=== PATIENT | male | born 1955 | race Caucasian/White ===

== ENCOUNTER → 2017-11-29 08:01 | Outpatient (POV) | payer OTHER, SELFPAY | PROVIDERS: Family Provider Family Medicine; PCP Family Medicine; Visit Provider Nurse Practitioner Acute Care | DX: Z00.00 Encounter for general adult medical examination without abnormal findings (principal) ==

== ENCOUNTER → 2018-07-04 09:37 | Outpatient (POV) | payer OTHER, SELFPAY | PROVIDERS: Visit Provider Nurse Practitioner Acute Care | DX: Z00.00 Encounter for general adult medical examination without abnormal findings (principal) ==

== ENCOUNTER → 2018-08-18 14:03 | Outpatient (CLI) | payer OTHER, SELFPAY | PROVIDERS: PCP Family Medicine; Visit Provider Family Medicine | DX: G47.10 Hypersomnia, unspecified (principal); R06.83 Snoring; I10 Essential (primary) hypertension | CPT/HCPCS: 95806 ==

== ENCOUNTER → 2019-03-09 10:07 | Outpatient (CLI) | payer MEDICARE, OTHER, SELFPAY ==
[2019-03-09 12:40] LABS: Ferritin 97 ng/mL (8-388)
== END ==
PROVIDERS: Visit Provider Specialist
DX: E83.10 Disorder of iron metabolism, unspecified (principal); G25.81 Restless legs syndrome; G47.33 Obstructive sleep apnea (adult) (pediatric)
CPT/HCPCS: 36415; 82728

== ENCOUNTER → 2019-03-27 14:24 | Outpatient (CLI) | payer MEDICARE, OTHER, SELFPAY | PROVIDERS: Visit Provider Specialist | DX: G47.33 Obstructive sleep apnea (adult) (pediatric) (principal) | CPT/HCPCS: 94762 ==

== ENCOUNTER → 2019-04-18 10:00 | Outpatient (POV) | payer OTHER, SELFPAY | PROVIDERS: Visit Provider Otolaryngology | DX: Z00.00 Encounter for general adult medical examination without abnormal findings (principal) ==

== ENCOUNTER → 2019-06-06 10:33 | Outpatient (POV) | payer OTHER, SELFPAY | PROVIDERS: Visit Provider Otolaryngology | DX: Z00.00 Encounter for general adult medical examination without abnormal findings (principal) ==

== ENCOUNTER → 2019-08-18 09:17 | Outpatient (CLI) | payer MEDICARE, OTHER, SELFPAY ==
--- NOTE | 2019-08-18 09:25 | XR_ITS ---
PROCEDURE: XR HIP LT 2-3V W/PELVIS CLINICAL INDICATION: LT HIP PAIN The left hip pain COMPARISON: [id number] HIP RT 2-3V W/PELVIS IF PERFOR from 11/01/2015 FINDINGS: AP view of the pelvis shows mild bilateral osteoarthritic changes of the hips. No fracture or dislocation. No lytic or blastic change. Multiple small metallic densities are present over the symphysis pubis consistent with prostate seed implants. There are degenerative changes in the lower lumbar spine. IMPRESSION: Mild osteoarthritic changes, no acute finding Dictated by: Arturo Sousa MD 08/18/2019 15:25 Electronically signed by Arturo Sousa MD in [place] 08/18/2019 15:25
== END ==
PROVIDERS: PCP Family Medicine; Visit Provider Family Medicine
DX: M25.552 Pain in left hip (principal)
CPT/HCPCS: 73502

== ENCOUNTER → 2019-08-31 13:58 | Outpatient (CLI) | payer MEDICARE, OTHER, SELFPAY ==
--- NOTE | 2019-08-31 14:00 | MR_ITS ---
PROCEDURE: MR HIP LT WO CON CLINICAL INDICATION: LEFT HIP PAIN, ARTHRITIS OF LEFT HIP LEFT HIP PAIN ESPECIALLY WITH WALKING COMPARISON: XR HIP LT 2-3V W/PELVIS from 08/18/2019 TECHNIQUE: Routine multiplanar multi echo sequences are performed without gadolinium enhancement. FINDINGS: There are mild osteoarthritic changes of both hips. No fracture or dislocation is evident. No bony destructive process. No lytic or blastic change. No evidence of avascular necrosis. There is a 2 cm loculated fluid collection along the posterior aspect of the left hip joint and may be due to an area of bursitis. There is a small amount fluid within the intertrochanteric region of both hips.. No abnormal signal intensity within the adjacent musculature. There is mild thickening of the urinary bladder noted. IMPRESSION: 1. No acute bony pathology. No evidence of fracture or avascular necrosis. No bony destructive process evident 2. Mild bilateral osteoarthritic changes of the hips with small bilateral hip joint effusions and a small loculated fluid collection along the posterior aspect of the left femoral acetabular region suggesting an area of bursitis. Dictated by: Arturo Sousa MD 09/02/2019 06:54 Electronically signed by Arturo Sousa MD in [place] 09/02/2019 06:54
== END ==
PROVIDERS: PCP Family Medicine; Visit Provider Family Medicine
DX: M25.552 Pain in left hip (principal); M16.12 Unilateral primary osteoarthritis, left hip
CPT/HCPCS: 73721

== ENCOUNTER 2019-11-23 07:40 | Outpatient (RCR) | payer MEDICARE, OTHER, SELFPAY | END 2019-11-23 07:45 | disposition home or self-care (01) | LOC: PT 07:40 | PROVIDERS: PCP Family Medicine; Visit Provider Orthopaedic Surgery | DX: M70.62 Trochanteric bursitis, left hip (principal) | CPT/HCPCS: 20560; 97010; 97014; 97110; 97163; G0283 ==

== ENCOUNTER → 2019-12-11 14:24 | Outpatient (CLI) | payer MEDICARE, OTHER, SELFPAY ==
--- NOTE | 2019-12-11 14:27 | MR_ITS ---
PROCEDURE: MR LUMBAR SPINE WO CON CLINICAL INDICATION: LEFT SIDED SCIATICA, LUMBAR FACET ARTHROPATHY, LUMBAR DDD Left hip and leg pain the COMPARISON: ABDPELW CT ABD PELVIS W/ CONTRAST from 10/04/2015 LS5 LUMBAR SPINE 5 VIEWS from 04/15/2017 TECHNIQUE: Standard multiplanar multiecho sequences are performed without contrast. 3-D MIP and myelographic images are also rendered and reviewed FINDINGS: The spinal cord ends at the T12 level. There is minimal anterolisthesis of T10 on T11 of 3 mm. T11-T12 T12-L1 and L1-L2 have an unremarkable appearance. L2-L3: Mild degenerative disc disease with bulging disc along with facet ligamentum hypertrophy with resultant mild bilateral lateral recess narrowing. There is moderate right-sided foraminal narrowing and mild left foraminal narrowing. There is minimal retrolisthesis of L2 2 mm. Small amount fluid is present in the facet joint at this level. L3-L4: Degenerate disc disease with bulging disc with facet and ligamentum hypertrophy with moderate to severe right-sided foraminal narrowing and mild left foraminal narrowing. L4-5: 7 mm anterolisthesis of L4 with mild degenerative disc disease at that level with facet and ligamentum hypertrophy with moderate bilateral foraminal narrowing slightly greater on the right. L5-S1: Mild degenerative disc disease with mild bulging disc along with facet ligamentum hypertrophic change. There is some nonspecific fatty infiltration of the left psoas muscle laterally. There is a small right renal cyst at 16 mm. IMPRESSION: The abnormal MRI of the lumbar spine with multilevel lumbar spondylosis with degenerative disc disease, bulging disc, along with facet ligamentum arthropathy with hypertrophic change with lateral recess and foraminal narrowing. PLEASE SEE ABOVE FOR DETAILED DESCRIPTION AT EACH LEVEL. No extruded herniated disc or canal stenosis. Dictated by: Arturo Sousa MD 12/13/2019 06:46 Electronically signed by Arturo Sousa MD in [place] 12/13/2019 06:46
== END ==
PROVIDERS: PCP Family Medicine; Visit Provider Family Medicine
DX: M54.32 Sciatica, left side (principal); M47.816 Spondylosis without myelopathy or radiculopathy, lumbar region; M51.36 Other intervertebral disc degeneration, lumbar region
CPT/HCPCS: 72148; 76376

== ENCOUNTER → 2020-05-13 09:24 | Outpatient (CLI) | payer MEDICARE, OTHER, SELFPAY ==
[2020-05-13 11:08] LABS: Coronavirus 19 IgG Antibody Negative (Negative); Coronavirus 19 IgM Antibody Negative (Negative)
== END ==
PROVIDERS: Visit Provider Nurse Practitioner Family
DX: Z01.818 Encounter for other preprocedural examination (principal); G47.33 Obstructive sleep apnea (adult) (pediatric)
CPT/HCPCS: 36415; 86328

== ENCOUNTER → 2020-05-14 20:06 | Outpatient (CLI) | payer MEDICARE, OTHER, SELFPAY | PROVIDERS: PCP Family Medicine; Visit Provider Specialist | DX: G47.33 Obstructive sleep apnea (adult) (pediatric) (principal); E66.9 Obesity, unspecified | CPT/HCPCS: 95811 ==

== ENCOUNTER → 2020-05-28 11:18 | Outpatient (CLI) | payer MEDICARE, OTHER, SELFPAY ==
--- NOTE | 2020-05-28 11:30 | XR_ITS ---
PROCEDURE: XR CHEST AP CLINICAL HISTORY: COVID COMPARISON: No exams were available for comparison FINDINGS: The cardiomediastinal silhouette and pulmonary vascularity are within normal limits. The lungs are clear without infiltrates, suspicious nodules, or pleural effusions. Calcified granulomas present in the right midlung. There is mild tortuosity/ectasia of the descending thoracic aorta. No acute bony findings. IMPRESSION: No acute findings. Dictated b Arturo Sousa MD 05/28/2020 12:25 Arturo Sousa MD in [place] 05/28/2020 12:25
[2020-05-28 14:31] LABS: Basophils % 0.5 % (0.1-2.0); Eosinophils # 0.2 K/mm3 (0.0-0.4); Eosinophils % 2.4 % (0.1-12.0); Hematocrit 45.8 % (42.0-52.0); Hemoglobin 15.5 g/dL (14.1-18.0); Lymphocytes # 1.9 K/mm3 (0.7-4.5); Lymphocytes % 27.6 % (10-50); Mean Corpuscular HGB Conc 33.8 g/dL (31.8-35.4); Mean Corpuscular Hemoglobin 30.1 pg (27.0-31.2); Mean Corpuscular Volume 89.1 fl (80-94); Mean Platelet Volume 8.6 fl (7.4-10.4); Monocytes # 0.4 K/mm3 (0.1-1.0); Monocytes % 6.1 % (1.7-9.3); Neutrophils # 4.3 K/mm3 (1.8-7.8); Neutrophils % 63.4 % (37.0-80.0); Platelet Count 317 K/mm3 (142-424); Red Blood Count 5.13 M/mm3 (4.60-6.20); Red Cell Distribution Width 13.9 % (11.5-17.5); White Blood Count 6.7 K/mm3 (4.8-10.8)
== END ==
PROVIDERS: PCP Family Medicine; Visit Provider Family Medicine
DX: Z03.818 Encounter for observation for suspected exposure to other biological agents ruled out (principal)
CPT/HCPCS: 36415; 71045; 85025; U0003

== ENCOUNTER → 2020-07-16 09:57 | Outpatient (CLI) | payer MEDICARE, OTHER, SELFPAY | PROVIDERS: PCP Family Medicine; Visit Provider Specialist | DX: G47.33 Obstructive sleep apnea (adult) (pediatric) (principal) | CPT/HCPCS: 94762 ==

== ENCOUNTER → 2021-03-10 08:53 | Outpatient (CLI) | payer MEDICARE, OTHER, SELFPAY ==
--- NOTE | 2021-03-10 09:03 | XR_ITS ---
PROCEDURE: XR CHEST 2V CLINICAL HISTORY: COUGH COMPARISON: CR XR CHEST AP from 05/28/2020 FINDINGS: Normal heart size. There is some tortuosity/ectasia of the descending thoracic aorta. Calcified granulomas present in the right midlung. The remaining Lungs are clear. Mild degenerative changes thoracic spine IMPRESSION: No change with no acute finding Dictated by: Arturo Sousa MD 03/10/2021 09:26 Arturo Sousa MD in [place] 03/10/2021 09:27
== END ==
PROVIDERS: PCP Family Medicine; Visit Provider Family Medicine
DX: R05 Cough (principal)
CPT/HCPCS: 71046

== ENCOUNTER → 2021-05-09 09:28 | Outpatient (CLI) | payer MEDICARE, OTHER, SELFPAY ==
[2021-05-09 11:02] LABS: Prostate Specific Ag Screen < 0.1 ng/ml (0.0-4.0)
== END ==
PROVIDERS: Visit Provider Family Medicine
DX: Z12.5 Encounter for screening for malignant neoplasm of prostate (principal)
CPT/HCPCS: 36415; G0103

== ENCOUNTER → 2021-06-30 15:39 | Outpatient (CLI) | payer MEDICARE, OTHER, SELFPAY ==
--- NOTE | 2021-06-30 15:45 | XR_ITS ---
PROCEDURE: XR CHEST PORTABLE CLINICAL HISTORY: COVID OUTPATIENT COMPARISON: CR XR CHEST AP from 05/28/2020 CR XR CHEST 2V from 03/10/2021 FINDINGS: Patient is rotated toward the right. There is tortuosity of the descending thoracic aorta. The lungs are clear without infiltrates, suspicious nodules, or pleural effusions. No acute bony abnormalities. IMPRESSION: No acute findings. Dictated by: Arturo Sousa MD 06/30/2021 16:41 Arturo Sousa MD in [place] 06/30/2021 16:41
[2021-06-30 17:45] LABS: Basophils # 0.1 K/mm3 (0-0.2); Basophils % 0.9 % (0.1-2.0); Eosinophils # 0.2 K/mm3 (0.0-0.4); Hematocrit 48.9 % (42.0-52.0); Hemoglobin 15.6 g/dL (14.1-18.0); Lymphocytes # 2.6 K/mm3 (0.7-4.5); Lymphocytes % 29.8 % (10-50); Mean Corpuscular HGB Conc 31.9 g/dL (31.8-35.4); Mean Corpuscular Hemoglobin 29.3 pg (27.0-31.2); Mean Corpuscular Volume 91.8 fl (80-94); Mean Platelet Volume 7.6 fl (7.4-10.4); Monocytes # 0.5 K/mm3 (0.1-1.0); Monocytes % 6.1 % (1.7-9.3); Neutrophils # 5.3 K/mm3 (1.8-7.8); Neutrophils % 61.1 % (37.0-80.0); Platelet Count 572 K/mm3 (142-424); Red Blood Count 5.33 M/mm3 (4.60-6.20); Red Cell Distribution Width 13.3 % (11.5-17.5); White Blood Count 8.7 K/mm3 (4.8-10.8)
== END ==
PROVIDERS: PCP Family Medicine; Visit Provider Family Medicine
DX: Z20.822 Contact with and (suspected) exposure to COVID-19 (principal); U07.1 COVID-19
CPT/HCPCS: 71045; 85025; 87275; 87276; C9803; U0003; U0005

== ENCOUNTER → 2021-09-03 08:17 | Outpatient (CLI) | payer MEDICARE, OTHER, SELFPAY ==
--- NOTE | 2021-09-03 08:25 | XR_ITS ---
PROCEDURE: XR CHEST 2V CLINICAL HISTORY: hypoxemia COMPARISON: CR XR CHEST AP from 05/28/2020 CR XR CHEST 2V from 03/10/2021 CR XR CHEST PORTABLE from 06/30/2021 FINDINGS: The cardiomediastinal silhouette and pulmonary vascularity are within normal limits. Tortuosity/ectasia noted of the descending thoracic aorta. Granulomas present in the right midlung. Lungs are otherwise clear. No acute bony abnormalities. IMPRESSION: No change with no acute finding Dictated by: Arturo Sosua MD 09/03/2021 08:37 Arturo Sousa MD in [place] 09/03/2021 08:37
[2021-09-03 09:50] VITALS: PULSE 63; PULSE 68
== END ==
PROVIDERS: PCP Family Medicine; Visit Provider Nurse Practitioner Family
DX: G47.34 Idiopathic sleep related nonobstructive alveolar hypoventilation (principal); Z86.16 Personal history of COVID-19; R09.02 Hypoxemia
CPT/HCPCS: 71046; 94060; 94618; 94640; 94727; 94729

== ENCOUNTER → 2021-09-08 09:05 | Outpatient (CLI) | payer MEDICARE, OTHER, SELFPAY ==
[2021-09-08 10:00] LABS: Creatinine,Urine Random 128 mg/dL (Not Estab.)
[2021-09-08 10:06] LABS: Microalbumin < 6.000 mg/L (0-16.7)
[2021-09-08 10:11] LABS: Basophils # 0.1 K/mm3 (0-0.2); Basophils % 1.1 % (0.1-2.0); Eosinophils # 0.1 K/mm3 (0.0-0.4); Hematocrit 46.3 % (42.0-52.0); Lymphocytes # 1.8 K/mm3 (0.7-4.5); Lymphocytes % 29.9 % (10-50); Mean Corpuscular HGB Conc 32.4 g/dL (31.8-35.4); Mean Corpuscular Hemoglobin 29.3 pg (27.0-31.2); Mean Corpuscular Volume 90.4 fl (80-94); Mean Platelet Volume 9.2 fl (7.4-10.4); Monocytes # 0.4 K/mm3 (0.1-1.0); Neutrophils # 3.7 K/mm3 (1.8-7.8); Platelet Count 440 K/mm3 (142-424); Red Blood Count 5.13 M/mm3 (4.60-6.20); Red Cell Distribution Width 14.3 % (11.5-17.5)
[2021-09-08 10:45] LABS: Alanine Aminotransferase 33 U/L (12-78); Albumin Level 4.6 g/dl (3.5-5.0); Albumin/Globulin Ratio 1.9 (1.1-1.8); Alkaline Phosphatase 64 U/L (38-126); Anion Gap 13.4 mEq/L (5-15); Aspartate Amino Transferase 40 U/L (17-59); Bilirubin,Total 0.3 mg/dl (0.2-1.3); Blood Urea Nitrogen 16 mg/dl (9-20); Calcium 9.8 mg/dl (8.4-10.2); Carbon Dioxide 27 mmol/L (22.0-30.0); Chloride 103 mmol/L (98-107); Chol/HDL Ratio 4.4 (1-3.5); Cholesterol 168 mg/dl (140-200); Estimated Glomerular Filt Rate 96 ml/min (>60); GFR (African American) 117 ML/MIN (>60); Globulin 2.4 g/dL (1.3-3.2); Glucose 103 mg/dl (74-100); HDL Cholesterol 38 mg/dl (40-60); Potassium 4.4 mmoL/L (3.5-5.1); Sodium 139 mmol/L (136-145); Triglycerides 203 mg/dl (30-150); Uric Acid 4.4 mg/dl (3.5-8.5); VLDL Cholesterol 41 mg/dL (0-40)
[2021-09-08 10:46] LABS: Hemoglobin A1C 5.5 % (4.0-6.0)
[2021-09-08 11:02] LABS: Free T4 (Free Thyroxine) 0.79 ng/dl (0.78-2.19)
[2021-09-08 13:39] LABS: Thyroid Stimulating Hormone 2.83 uIU/mL (0.465-4.68)
== END ==
PROVIDERS: Visit Provider Family Medicine
DX: E11.9 Type 2 diabetes mellitus without complications (principal); E78.5 Hyperlipidemia, unspecified; E03.9 Hypothyroidism, unspecified; I10 Essential (primary) hypertension; M1A.9XX0 Chronic gout, unspecified, without tophus (tophi); Z79.84 Long term (current) use of oral hypoglycemic drugs
CPT/HCPCS: 36415; 80053; 80061; 82043; 82570; 83036; 84439; 84443; 84550; 85025

== ENCOUNTER 2022-02-18 05:56 | Inpatient (IN) | payer MEDICARE, SELFPAY ==
[2022-02-18] VITALS (16 sets, daily range): BP systolic 107–147; BP diastolic 70–93; PULSE 60–125; RESP 16–28; TEMP 36.7–38.8; O2SAT 95–100; BMI 35.6; BMI 32.3
--- NOTE | 2022-02-18 06:05 | ECG_ITS ---
APPROVED REPORT Exam: Resting ECG HR:84 bpm ECG Measurements Heart Rate 84 AXES FL 160 P 48 QRSd 113 QRS 51 QT 401 T 67 QTc 443 Conclusion SINUS RHYTHM WITH OCCASIONAL VENTRICULAR PREMATURE COMPLEXES POSSIBLE LEFT ATRIAL ENLARGEMENT [-0.1mV P-WAVE IN V1/V2] MODERATE INTRAVENTRICULAR CONDUCTION DELAY [110+ ms QRS DURATION] NONSPECIFIC ST & T-WAVE ABNORMALITY BORDERLINE ECG INTERPRETATION BASED ON A DEFAULT AGE OF 38 YEARS UNCONFIRMED REPORT Electronically signed by : Robert Jones MD 02/18/2022 17:55:57
--- NOTE | 2022-02-18 06:08 | XR_ITS ---
FINAL REPORT CLINICAL HISTORY: ams FINDINGS: SINGLE-VIEW CHEST There is cardiomegaly. The mediastinum is normal. The lungs are clear. There is no pneumothorax. IMPRESSION: No acute cardiopulmonary process. Reviewed, Interpreted and Dictated by Oli Motley III, MD Transcribed by Mary Bustillo Authenticated by Oli Motley III, MD on 02/18/2022 10:34:14 AM [facility]
--- NOTE | 2022-02-18 06:08 | CT_ITS ---
FINAL REPORT CLINICAL HISTORY: ams..pt is very very confused and moving uncontrollably...had to scan him 2 times and we heard his head on the 2nd scan FINDINGS: Axial images of the head were obtained without contrast. Coronal reformatted images were also obtained.This study was performed with techniques to keep radiation doses as low as reasonably achievable (ALARA). Individualized dose reduction techniques using automated exposure control or adjustment of mA and/or kV according to the patient's size were employed. Motion artifact decreases sensitivity. No definite acute intracranial abnormality is identified. The ventricles are normal in size. No definite hemorrhage is identified. There is mild mucosal thickening of the maxillary sinuses. IMPRESSION: No definite acute intracranial abnormality. Reviewed, Interpreted and Dictated by Oli Motley III, MD Transcribed by Mary Bustillo Authenticated by Oli Motley III, MD on 02/18/2022 08:36:04 AM [facility]
--- NOTE | 2022-02-18 06:16 | PC.NURSE ---
respiratory notified of vbg
[2022-02-18 06:36] LABS: Basophils # 0.1 K/mm3 (0-0.2); Basophils % 0.6 % (0.1-2.0); Hemoglobin 16.3 g/dL (14.1-18.0); Lymphocytes # 1.3 K/mm3 (0.7-4.5); Lymphocytes % 10.4 % (10-50); Mean Corpuscular HGB Conc 34.7 g/dL (31.8-35.4); Mean Corpuscular Hemoglobin 30.6 pg (27.0-31.2); Mean Corpuscular Volume 88.1 fl (80-94); Mean Platelet Volume 8.4 fl (7.4-10.4); Monocytes # 0.7 K/mm3 (0.1-1.0); Monocytes % 5.3 % (1.7-9.3); Neutrophils # 10.4 K/mm3 (1.8-7.8); Neutrophils % 83.6 % (37.0-80.0); Platelet Count 422 K/mm3 (142-424); Red Blood Count 5.33 M/mm3 (4.60-6.20); Red Cell Distribution Width 14.3 % (11.5-17.5); White Blood Count 12.4 K/mm3 (4.8-10.8)
[2022-02-18 06:40] LABS: Alanine Aminotransferase 35 U/L (12-78); Albumin/Globulin Ratio 1.7 (1.1-1.8); Alkaline Phosphatase 57 U/L (38-126); Anion Gap 18.1 mEq/L (5-15); Aspartate Amino Transferase 48 U/L (17-59); Bilirubin,Total 1.1 mg/dl (0.2-1.3); Blood Urea Nitrogen 23 mg/dl (9-20); Calcium 9.7 mg/dl (8.4-10.2); Carbon Dioxide 23 mmol/L (22.0-30.0); Chloride 98 mmol/L (98-107); Estimated Glomerular Filt Rate 84 ml/min (>60); GFR (African American) 102 ML/MIN (>60); Globulin 2.9 g/dL (1.3-3.2); Glucose 173 mg/dl (74-100); Lipase 85 U/L (23-300); Potassium 3.1 mmoL/L (3.5-5.1); Sodium 136 mmol/L (136-145); Total Protein,Serum 7.9 g/dl (6.3-8.2)
[2022-02-18 06:42] LABS: Activated Partial Thrombo Time 25.7 seconds (22.8-30.6); INR 1.04 (0.9-1.1); Prothrombin Time 11.7 seconds (10.1-12.5)
--- NOTE | 2022-02-18 07:00 | PC.NURSE ---
bedside report obtained from colton austin pt is 4 point restraints upon my arrival, ED staff at BS. Pt thrashing in bed, trying to get up. ED staff trying to calm pt. ER MD bedside, ER MD wanting to attempt to get pt over to Ct scanner for head Ct. Medication ordered per ER MD for agitation, administered as ordered per DEC. Staff remains at BS
[2022-02-18 07:23] LABS: VBG Base Excess -0.7 mmol/L (-2.4-2.3); VBG HCO3 22.3 mmol/L (23-30); VBG Oxygen Saturation 86.5 % (50-70); VBG PCO2 28.2 mmol/L (35-51); VBG PH 7.52 mmol/L (7.31-7.41); VBG PO2 45.6 mmol/L (28-40); VBG Total CO2 23.1 mmol/L (23-27)
--- NOTE | 2022-02-18 07:35 | PC.NURSE ---
at approx [address] via stretcher with myself and ,sorin, pt on serging machine operator automatic, O2 @2L per NC, capnography in place pt restraints removed so that pt could be transferred to Ct table. Velcro straps to abd area and knee area on pt during Ct scan for safety. ED staff member remained in CT scan room with pt during scan for safety. Pt tolerated scan well, pt attempting to follow commands, will look at you when you talk to him. Pt transferred back to ED stretcher, restraints not placed on back on pt at this time r/t pt not combative or tying to get up from bed. Pt transferred back to ED room per myself and ,pm
--- NOTE | 2022-02-18 07:41 | PC.NURSE ---
@0558 pt presents to ED walking and alert but confused and not following commands. Son was able to football coach pt to sitting in bed and pt tolerating BP cuff placed and o2 sat. attempting to get EKG 0610 Pt becoming more agitated and swinging arms. MD aware and at bedside. 0618 PIV established to LAC (18g) blood collected. Pt starting to trash in bed. House called for extra support and assistance. MD remains a t bedside. HR 170s, RR36, sat 96% BP 147/82. Can not obtain temp at this time d/t safety. 0625 Pt becoming very combative and hitting staff and has skin tear from hitting side rails. Gauze and coban applied to open wounds. 5x staff members are attempting to keep pt in bed and safe. Zyprexa 10mg IM ordered, given L deltoid. 0630 MD order soft restraints. This RN collected restraints and these were starting to be placed on pt. Paged for [facility] WH[facility] . 0634 Extra staff at bedside and restraints secured to bed. ordered a second dose of Zyprexa 10mg IM ordered, given to R deltoid. HR 170s 0645 7x staff at bedside keeping pt safe, lost IV access to LAC. Pt still combative, [id number] sat 97%. 0650 Pt settling enough to attempt 2nd PIV. Access established to L hand (20g). New order for Ketamine 50mg IVP, co2 monitoring, and attempting temp Axilliary temp 101.9. MD notified. 0700 Bedside report given to Deya Hoover RN. Giving pt 2nd dose Ketamine 50mg IVP per .
--- NOTE | 2022-02-18 07:46 | HMH.EDGENADL ---
ED Disposition Clinical Impression: Encephalopathy Disposition: Admitted As Inpatient Condition on Discharge: Serious Referrals: Mumtaz Larson MD [Primary Care Provider] - - Critical Care Critical Care Time: Yes Attestation: On 02/18/22, the high probability of a clinically significant, sudden or life threatening deterioration of the following system(s) required my full and direct attention, intervention and personal management. The time I documented below is in addition to time spent performing reported procedures but includes the following listed in this critical care notation. Total Critical Care Time: 45 Vital system(s) involved:: Central Nervous System, Metabolic Failure My critical care processes included: Assessment & monitoring of V/S, Initial and Re-exams, Data Review/Interpretation, Coordinating Care, Medication Orders and management, Documentation Medical Decision Making - Medical Records Medical records reviewed: Yes: I reviewed the patient's medical records. - Jb Inquiry Pt receiving controlled substance: No Vital Signs: 02/18/22 05:57 Temperature 101.9 F H Temperature Source Axillary Pulse Rate [Left] 125 H Respiratory Rate 28 H Blood Pressure [Right Arm] 147/82 H Blood Pressure Mean [Right Arm] 103 02 Sat by Pulse Oximetry 95 Oxygen Delivery Method Room Air - Lab Data Lab Results 02/18/22 06:12: VBG pH 7.52 H, VBG pCO2 28.2 L, VBG pO2 45.6 H, VBG HCO3 22.3 L, VBG Total CO2 23.1, VBG O2 Saturation 86.5 H, VBG Base Excess -0.7 02/18/22 06:20: WBC 12.4 H, RBC 5.33, Hgb 16.3, Hct 47.0, MCV 88.1, MCH 30.6, MCHC 34.7, RDW 14.3, Plt Count 422, MPV 8.4, Neut % (Auto) 83.6 H, Lymph % (Auto) 10.4, [place] % (Auto) 5.3, Eos % (Auto) 0.0 L, Baso % (Auto) 0.6, Neut # (Auto) 10.4 H, Lymph # (Auto) 1.3, [place] # (Auto) 0.7, Eos # (Auto) 0.0, Baso # (Auto) 0.1 02/18/22 06:20: PT 11.7, INR 1.04, APTT 25.7 02/18/22 06:20: Sodium 136, Potassium 3.1 L, Chloride 98, Carbon Dioxide 23, Anion Gap 18.1 H, BUN 23 H, Creatinine 0.90, Estimated GFR 84, Est GFR ( Amer) 102, Glucose 173 H, Calcium 9.7, Total Bilirubin 1.1, AST 48, ALT 35, Alkaline Phosphatase 57, Total Protein 7.9, Albumin 5.0, Globulin 2.9, Albumin/Globulin Ratio 1.7, Lipase 85 02/18/22 08:40: Urine Color Yellow, Urine Appearance Clear, Urine pH 7.0, Ur Specific [place] 1.020, Urine Protein 1+, Urine Glucose (UA) Negative, Urine Ketones Trace, Urine Blood 1+, Urine Nitrate Negative, Urine Bilirubin Negative, Urine Urobilinogen 4.0, Ur Leukocyte Esterase Negative, Urine RBC 3-5, Urine WBC Occasional, Ur Squamous Epith Cells 3-5, Urine Bacteria None 02/18/22 08:40: Urine Opiates Screen Negative, Urine Methadone Screen Negative, Ur Barbituates Screen Negative, Ur Phencyclidine Scrn Negative, Ur Amphetamines Screen Negative, U Benzodiazepines Scrn Negative, Urine Cocaine Screen Negative, U Marijuana (THC) Screen Positive H Result diagrams: 02/18/22 06:20 02/18/22 06:20 Orders (Tests/Meds): ED MEDICATIONS Generic Name Dose Route Start Last Admin Trade Name Freq PRN Reason Stop Dose Admin Ceftriaxone Sodium 2 gm/ 100 mls @ 200 mls/hr 02/18/22 08:30 02/18/22 09:19 Sodium Chloride IV 03/04/22 08:29 200 mls/hr Q24H LELA Administration Acyclovir Sodium 1,000 mg/ 250 mls @ 250 mls/hr 02/18/22 09:00 Sodium Chloride IV 02/25/22 08:59 Q8H LELA Vancomycin HCl 2,000 mg/ 250 mls @ 125 mls/hr 02/18/22 09:00 Sodium Chloride IV 03/04/22 08:59 Q12H LELA Discontinued Medications Generic Name Dose Route Start Last Admin Trade Name Freq PRN Reason Stop Dose Admin Acetaminophen 1,000 mg 02/18/22 07:06 02/18/22 08:19 Acetaminophen 1,000mg/100ml Vial IV 02/18/22 07:07 Not Given ONCE ONE Dexamethasone Sodium Phosphate 10 mg 05/04/22 08:22 02/18/22 08:49 Dexamethasone 4mg/Ml 1ml Vial IV 02/18/22 08:23 10 mg ONCE ONE Administration Sodium Chloride 1,000 mls @ 999 mls/hr 02/18/22 07:15 02/18/22 09:19 So
--- NOTE | 2022-02-18 07:48 | PC.NURSE ---
return from CT at this time. Pt restraints are not in place at this time. Pt is more alert, pt able to follow some commands. Pt looks at you when you talk to him. Will continue to monitor, staff remaining at BS at this time for pt safety
--- NOTE | 2022-02-18 08:10 | PC.NURSE ---
ER at attempting lumbar puncture, myself, jolene,pm, ,pm at to help with procedure. Pt placed on his L side. Pt rolled over on his side by himself, pt is more alert at this time.
--- NOTE | 2022-02-18 08:20 | PC.NURSE ---
Restraints x4 had to be put back in place on pt at this time, pt combative to staff, thrashing all over bed, pt hitting arms on bed rails, pt hit his forehead on bedrail. Unable to redirect pt at this time. NGHIA JAMES at . Staff remains at BS will continue to monitor.
--- NOTE | 2022-02-18 08:23 | PC.NURSE ---
Dr Larson paged at this time
--- NOTE | 2022-02-18 08:28 | PC.NURSE ---
Dr. Dukes s/w Dr. Larson
[2022-02-18 08:46] LABS: Microscopic, Urine URINE MICROSCOPIC (MICROSCOPIC)
--- NOTE | 2022-02-18 08:50 | PC.NURSE ---
pt daughter at BS, pt fighting restraints, pt is more alert than he was,oriented to person. Pt wanting to sit up in bed. BUE restraints removed, assisted pt in sitting position in bed. NGHIA dukes back to BS speaking with pt family. NGHIA Dukes wants to try lumbar puncture again at this time with pt in sitting position. BLE restraints loosened but still in place during procedure to help ensure pt remains in bed for safety. Pt daughter assisted with pt positioning during procedure per her request as pt was comfortable and was already leaning on her. Pt tolerated procedure fair, csf collected per NGHIA dukes, specimens transported to lab per jolene. Pt assisted back into bed, pt requesting to lay down. BLE restraints removed (at the time no restraints in place). Pt helped to position of comfort. Pt alert, oriented to person at this time, able to follow most commands, easily redirectable. Pts face and neck wiped off will cool rag r/t sweating. Pt hooked back up to cardiac rehabilitation specialist, pulse ox and bp. SaO2 96% on RA, O2 removed at this time- will continue to monitor. pt daughter and remain at BS. Pt covered up with a sheet for comfort, pt given pillow. Pt reports he is comfortable and has no needs. Will continue to monitor.
[2022-02-18 08:54] LABS: Appearance,Urine CLEAR (Clear); Bilirubin,Urine Negative (Negative); Blood, Urine 1+ (Negative); Color,Urine YELLOW (Yellow); Glucose,Urine (UA) Negative (Negative); Ketones,Urine TRACE (Negative); Leukocyte Esterase,Urine Negative (Negative); Nitrate,Urine Negative (Negative); Protein,Urine 1+ (Negative)
--- NOTE | 2022-02-18 09:00 | PC.NURSE ---
Called and spoke with Rad to see if the PA would be available to do a LP today. Was advised that if it is needed, to put the order in and they will let him know, but that there are a couple procedures ahead of it. notified.
[2022-02-18 09:08] LABS: Barbiturates Screen,Urine Negative ng/ml (<200)
[2022-02-18 09:09] LABS: Amphetamine/Metha Screen,Urine Negative ng/ml (<1000); Benzodiazepines Screen,Urine Negative ng/ml (<200)
[2022-02-18 09:10] LABS: Cannabinoid Screen,Urine Positive ng/ml (<50)
[2022-02-18 09:11] LABS: Cocaine Screen,Urine Negative ng/ml (<300); Methadone Screen,Urine Negative ng/ml (<300)
[2022-02-18 09:12] LABS: Opiate Screen,Urine Negative ng/ml (<300); Phencyclidine Screen,Urine Negative ng/ml (<25)
[2022-02-18 09:19] LABS: WBC,Urine Occasional #/hpf (0-3)
--- NOTE | 2022-02-18 09:21 | PC.NURSE ---
DR RAMOS SPEAKING WITH DR HOOVER AT [facility]
--- NOTE | 2022-02-18 09:23 | CT_ITS ---
FINAL REPORT TECHNIQUE: Thin section axial CT with IV contrast supplemented with multiplanar reconstruction under CT angiogram protocol. 3-D reconstructions were performed. This study was performed with techniques to keep radiation doses as low as reasonably achievable (ALARA). Individualized dose reduction techniques using automated exposure control or adjustment of mA and/or kV according to the patient''s size were employed. CLINICAL HISTORY: suspected stroke FINDINGS: No aneurysm is seen. Major intracranial vessels are patent without significant stenosis. IMPRESSION: No evidence of significant stenosis. Reviewed, Interpreted and Dictated by Oli Motley III, MD Transcribed by Mary Bustillo Authenticated by Oli Motley III, MD on 02/18/2022 10:34:13 AM [facility]
--- NOTE | 2022-02-18 09:23 | CT_ITS ---
FINAL REPORT TECHNIQUE: Thin section axial CT with IV contrast supplemented with multiplanar reconstruction under CT angiogram protocol. This study was performed with techniques to keep radiation doses as low as reasonably achievable (ALARA). Individualized dose reduction techniques using automated exposure control or adjustment of mA and/or kV according to the patient''s size were employed. NASCET criteria was utilized during interpretation. CLINICAL HISTORY: suspected stroke FINDINGS: Aortic arch: Arch shows no significant narrowing. Great vessel origins are widely patent. Right carotid: No significant stenosis is seen of the cervical common or internal carotid artery. Left carotid: No significant stenosis is seen of the cervical common or internal carotid artery. Vertebral: Left vertebral artery is dominant. No significant stenosis is present. IMPRESSION: No significant stenosis identified Reviewed, Interpreted and Dictated by Oli Motley III, MD Transcribed by Mary Bustillo Authenticated by Oli Motley III, MD on 02/18/2022 10:34:13 AM [facility]
--- NOTE | 2022-02-18 09:28 | PC.NURSE ---
[facility] called back requesting pt covid swab result and for us to call them back with it
[2022-02-18 09:39] LABS: Coronavirus 19, PCR Not Detected (NotDetected); Influenza A, PCR Not Detected (NotDetected); Influenza B, PCR Not Detected (NotDetected)
--- NOTE | 2022-02-18 09:54 | PC.NURSE ---
pt to CT for additional scans
--- NOTE | 2022-02-18 10:01 | PC.NURSE ---
pt return from CT
--- NOTE | 2022-02-18 10:12 | PC.NURSE ---
ER MD Li at
--- NOTE | 2022-02-18 10:15 | PC.NURSE ---
per elliott in lab, will be approx 5-10 minutes and we should start see results on pt CSF orders, notified NGHIA JAMES
[2022-02-18 10:22] LABS: Appearance,CSF Clear (Clear); Red Blood Cell,CSF 136 cells/uL (0); Volume,CSF 3 mL; White Blood Cell,CSF 619 cells/uL (0-5)
[2022-02-18 10:30] LABS: Glucose,CSF 94 mg/dl (40-70)
--- NOTE | 2022-02-18 10:34 | PC.NURSE ---
Kerry from lab called CSF Total protein of 191, repeated and verified.
--- NOTE | 2022-02-18 10:52 | PC.NURSE ---
pt sitting up in, daughter at BS, remote given to pt to watch TV. Pt daughter pt report is much more like himself but states pt has been unable to recall some words, for example pt could not tell pt the name of the object on her watch he did attempt but was unable to. (it was a watch)
--- NOTE | 2022-02-18 10:57 | PC.NURSE ---
NGHIA JAMES speaking with Dr. Larson
--- NOTE | 2022-02-18 10:59 | PC.NURSE ---
notified care management of admission, spoke with Katia.
--- NOTE | 2022-02-18 11:04 | PC.NURSE ---
ER at speaking with pt and daughter about POC
[2022-02-18 11:18] LABS: Mononuclear WBCs,CSF 98 %; Polynuclear WBCs,CSF 2 %
--- NOTE | 2022-02-18 11:58 | HMH.PHAINT ---
MEDICATION RECONCILIATION COMPLETED ON PATIENT USING EXTERNAL FILL HISTORY FROM PHARMACY AND LIST FROM [facility] OFFICE. -JALEEL MEEKSD
--- NOTE | 2022-02-18 12:00 | PC.NURSE ---
pt sitting up at end of bed, eating lunch conversing with family. Will continue to monitor
--- NOTE | 2022-02-18 12:12 | PC.NURSE ---
1208- pt vancomycin infusion complete. Pt arm noted to bed red and swelling noted above IV site. Pt denies presence of pain. IV removed. contacted pharmacy to verify interventions need for vancomycin infiltration. Spoke with states Florian to place cold pack on site for 30 minutes every 4 hours x24 hours. Notified ER ice pack placed on site (R AC area) at 1210. Alonso continue to monitor
--- NOTE | 2022-02-18 12:30 | PC.NURSE ---
dotson catheter removed per ER MD verbal order at this r/t pt improving mental status
--- NOTE | 2022-02-18 12:40 | PC.NURSE ---
report called to colton magana on second floor
--- NOTE | 2022-02-18 13:21 | HMH.PHACONS ---
- Pharmacy Consult Date: 02/18/22 Time: 13:22 Referring provider: DR. FAJARDO Reason for Consult:: VANCOMYCIN DOSING Allergies and ADEs:: Allergies Allergy/AdvReac Type Severity Reaction Status Date / Time No Known Allergies Allergy Verified 09/08/21 09:39 Home Medications:: Home Medications Medication Instructions Recorded Confirmed Type atenolol 100 mg-chlorthalidone 25 1 tab PO DAILY 10/17/18 02/18/22 History mg tablet Budesonide [Budesonide EC] 6 mg PO DAILY 02/18/22 02/18/22 History Colchicine [Colcrys 0.6mg tablet] 0.6 mg PO DAILY 02/18/22 02/18/22 History Duloxetine HCl [Cymbalta] 120 mg PO BID 02/18/22 02/18/22 History Fenofibrate Nanocrystallized 145 mg PO DAILY 02/18/22 02/18/22 History [Fenofibrate] Levothyroxine Sodium 50 mcg PO DAILY 02/18/22 02/18/22 History [Levothyroxine 50mcg (0.05mg) Tab] Metformin HCl [Metformin HCl ER] 500 mg PO DAILY 02/18/22 02/18/22 History Omeprazole [Omeprazole 20mg 20 mg PO DAILY 02/18/22 02/18/22 History Capsule] Potassium Chloride [K-Tab ER 20 20 meq PO BID 02/18/22 02/18/22 History mEq] Pramipexole Di-HCl [Mirapex 0.25mg 0.125 - 0.25 mg PO HS 02/18/22 02/18/22 History tablet] Quetiapine Fumarate [Seroquel] 400 mg PO BID 02/18/22 02/18/22 History allopurinoL [Allopurinol 300mg 300 mg PO DAILY 02/18/22 02/18/22 History tablet] Height: 1.85 m Weight: 122.47 kg Laboratory Results:: Laboratory Results - last 24 hr 02/18/22 06:12: VBG pH 7.52 H, VBG pCO2 28.2 L, VBG pO2 45.6 H, VBG HCO3 22.3 L, VBG Total CO2 23.1, VBG O2 Saturation 86.5 H, VBG Base Excess -0.7 02/18/22 06:20: WBC 12.4 H, RBC 5.33, Hgb 16.3, Hct 47.0, MCV 88.1, MCH 30.6, MCHC 34.7, RDW 14.3, Plt Count 422, MPV 8.4, Neut % (Auto) 83.6 H, Lymph % (Auto) 10.4, [place] % (Auto) 5.3, Eos % (Auto) 0.0 L, Baso % (Auto) 0.6, Neut # (Auto) 10.4 H, Lymph # (Auto) 1.3, [place] # (Auto) 0.7, Eos # (Auto) 0.0, Baso # (Auto) 0.1 02/18/22 06:20: PT 11.7, INR 1.04, APTT 25.7 02/18/22 06:20: Sodium 136, Potassium 3.1 L, Chloride 98, Carbon Dioxide 23, Anion Gap 18.1 H, BUN 23 H, Creatinine 0.90, Estimated GFR 84, Est GFR ( Amer) 102, Glucose 173 H, Calcium 9.7, Total Bilirubin 1.1, AST 48, ALT 35, Alkaline Phosphatase 57, Total Protein 7.9, Albumin 5.0, Globulin 2.9, Albumin/Globulin Ratio 1.7, Lipase 85 02/18/22 08:40: Urine Color Yellow, Urine Appearance Clear, Urine pH 7.0, Ur Specific [place] 1.020, Urine Protein 1+, Urine Glucose (UA) Negative, Urine Ketones Trace, Urine Blood 1+, Urine Nitrate Negative, Urine Bilirubin Negative, Urine Urobilinogen 4.0, Ur Leukocyte Esterase Negative, Urine RBC 3-5, Urine WBC Occasional, Ur Squamous Epith Cells 3-5, Urine Bacteria None 02/18/22 08:40: Urine Opiates Screen Negative, Urine Methadone Screen Negative, Ur Barbituates Screen Negative, Ur Phencyclidine Scrn Negative, Ur Amphetamines Screen Negative, U Benzodiazepines Scrn Negative, Urine Cocaine Screen Negative, U Marijuana (THC) Screen Positive H 02/18/22 09:00: CSF Volume 3, CSF Appearance Clear, CSF WBC 619 H, CSF RBC 136, CSF Mononuclear WBCs % 98, CSF Polynuclear WBCs % 2 02/18/22 09:00: CSF Glucose 94 H, CSF Total Protein 191.0 H* 02/18/22 09:30: SARS-CoV-2 (PCR) Not detected, Influenza A Untype (PCR) Not detected, Influenza Type B (PCR) Not detected Medical History: Reports:: Anxiety, Cancer, Depression, Diabetes Mellitus Type 2, Gastroesophageal Reflux Disease(GERD), Hyperlipidemia, Hypertension, Lung Disease Denies:: Diabetes Mellitus Type 1, Internal Pacemaker, MRSA, Seizures Assessment and Plan - Assessment and plan all Dx Assessment and Plan for all problems:: Age: 66 yo Serum creatinine: 1 mg/dL Height: 73.0 Inches Weight (kg): 122.5 Assessment: IBW (kg): 79.90 Dosing wt(kg): 122.5 Estimated Creatinine clearance (ml/min): 79.9 CRCL method: Cockcroft and Gault using ibw(default). Drug selected: Vancomycin Loading dose (mg): 0
--- NOTE | 2022-02-18 14:44 | P.CONPHA_ITS ---
[facility] Pharmacy VTE Monitoring - Patient Demographics Admission date: 02/18/22 Report Date: 02/18/22 Time: 14:44 Allergies/Adverse Reactions: Patient Allergies No Known Allergies Allergy (Verified 09/08/21 09:39) Height: 1.85 m Weight: 111.329 kg Patient Problems: Current Active Problems Encephalopathy (Acute) - VTE Risk Labs: VTE Related Lab Results Hgb 16.3 g/dL (14.1-18.0) 02/18/22 06:20 Hct 47.0 % (42.0-52.0) 02/18/22 06:20 Plt Count 422 K/mm3 (142-424) 02/18/22 06:20 PT 11.7 seconds (10.1-12.5) 02/18/22 06:20 INR 1.04 (0.9-1.1) 02/18/22 06:20 APTT 25.7 seconds (22.8-30.6) 02/18/22 06:20 BUN 23 mg/dl (9-20) H 02/18/22 06:20 Creatinine 0.90 mg/dl (0.66-1.25) 02/18/22 06:20 VTE Score: 2 VTE Risk Level: Very Low Risk - Prophylaxis VTE Prophylaxis Ordered?: Yes Types of VTE Prophylaxis: TEDS Knee High Location of Applied Device: Bilateral Lower Extremeties
--- NOTE | 2022-02-18 15:14 | HMH.HP ---
*Admission Date: 02/18/22 <Mary Caal - 02/18/22 16:01> *Chief complaint: Altered mental status <Mary Caal - 02/18/22 16:01> *History of present illness: Mr. Dejesus is a 65-year-old male patient with a history of hypertension, diabetes type 2, hyperlipidemia, acid reflux, gout, depression, Psoriatec arthritis, prostate cancer, lumbar disc disease, and sleep apnea on BiPAP who presented to [facility] with family after found him to have altered mental status. History is obtained from patient, , and daughter who is a RN working for [employer] cancer center at . The stated that he had nausea and vomiting all day yesterday. Patient states he also had some diarrhea. The awakened and found him wandering in the house. He did not know where he was or who he was. Thus they brought him to the emergency room. The is not aware that he had any fever and patient denies any upper respiratory symptoms. Upon arrival to the emergency room he did have a temperature of 101.9. He became quite agitated, grabbing at staff and striking his head against the rail of the bed. He was placed into four-point soft restraints and required multiple staff members to help hold him down to prevent him from hurting himself or anyone else. He also required intramuscular olanzapine x2 and IV ketamine in order for him to lie still for imaging and lumbar puncture. He was also given 10 mg of IV dexamethasone and given IV vancomycin, Rocephin, and acyclovir. Testing revealed a white blood cell count of 12,400 with a hemoglobin of 16.3 and hematocrit of 47. Electrolytes with low potassium at 3.1. Renal function showed a BUN of 23 and creatinine of 0.9. Blood sugar was 173. Liver function studies were all normal. Urine showed protein and blood and otherwise noncontributory. Spinal fluid was clear in appearance with a white blood cell count elevated at 619 and glucose elevated at 94 and total protein elevated at 191. Chest x-ray showed no acute cardiopulmonary processes. CT of the head/brain without contrast showed no definite acute intracranial abnormality. CTA of the head revealed no evidence of significant stenosis. CTA of the neck revealed no significant stenosis. After medication administration patient gradually relaxed and was more calm. He was more oriented and remained alert and awake. He was able to sit up on the edge of the bed and converse normally. The ER physician did speak with Dr. Landrum at the [facility]. He was placed on the list for admission. He was then admitted to [facility] for further evaluation/assessment and administration of IV antibiotics. <Mary Caal 02/18/22 16:01> [facility] History Medical History: Reports:: Anxiety, Cancer (Prostate cancer), Depression, Diabetes Mellitus Type 2, Gastroesophageal Reflux Disease(GERD), Hiatal Hernia, Hyperlipidemia, Hypertension, Lung Disease Denies:: Diabetes Mellitus Type 1, Internal Pacemaker, MRSA, Palpitations, Seizures <Mary Caal 02/18/22 16:01> *Have you ever received a pneumonia vaccine?: Yes <Mary Caal 02/18/22 16:01> *Have you received a flu vaccine this season?: Yes <Mary Caal 02/18/22 16:01> Other Medical History: Reports: Arthritis, Hypothyroidism. Denies: Blood Transfusion Reaction <Mary Caal 02/18/22 16:01> Laterality Cases: Bilateral: Tonsillectomy <Mary Caal 02/18/22 16:01> Other Surgeries: Yes: Appendectomy, Colonoscopy, Hernia Repair. No: Pacemaker <Mary Caal 02/18/22 16:01> Amputation: No <Mary Caal 02/18/22 16:01> Fractures: No <Mary Caal 02/18/22 16:01> Comment: Umbilical hernia repair; left knee surgery in 1999 and 2000. Finger reattachment; left knee scope with bone chip removal 2006. Prostate polyp biopsy 2015; prostate implant 2016; oral surgery 2018; nerve decompression and lumbar fusion of L4-[address] Ordonez in 2020. <Mary Caal 02/18/22 16:01> - *Social Histor
--- NOTE | 2022-02-18 16:59 | PC.WOUNDNOTE ---
right forearm Skin issues present upon admission to 2nd floor.
--- NOTE | 2022-02-18 17:01 | PC.WOUNDNOTE ---
bruises to right ankle area left forearm Skin issues present upon arrival to 2nd floor
--- NOTE | 2022-02-18 18:15 | PC.NURSE ---
skin issues noted upon assessment of pt skin when restraints were removed when pt return from CT at approx [id number]
--- NOTE | 2022-02-18 18:24 | PC.NURSE ---
pt on way to CT
--- NOTE | 2022-02-18 19:38 | PC.NURSE ---
only BLE restraints in place at this time
--- NOTE | 2022-02-18 19:40 | PC.NURSE ---
family at BS, pt is alert, oriented to person, cooperative with care, not combative. Will continue to monitor
[2022-02-18 20:48] LABS: POC Glucose,Bedside 170 (70-110)
--- NOTE | 2022-02-18 23:07 | PC.NURSE ---
Spoke with transfer center at this time with an update. No beds currently available.
[2022-02-19] VITALS: BP 106/65; PULSE 58; RESP 21; TEMP 36.9; O2SAT 96
[2022-02-19 01:13] LABS: POC Glucose,Bedside 166 (70-110)
--- NOTE | 2022-02-19 03:56 | PC.NURSE ---
Patient has remained alert and oriented x4, he is able to tell me his name, how old he is, month and day he was born, and that he is in the hospital. Verbal responses remain delayed with most questions asked. Patient has voiced no complaints to this RN.
[2022-02-19 04:00] VITALS: BP 104/66; PULSE 63; RESP 20; TEMP 36.8; O2SAT 97
[2022-02-19 05:00] VITALS: BMI 32.8
[2022-02-19 06:17] LABS: POC Glucose,Bedside 113 (70-110)
[2022-02-19 08:00] VITALS: BP 120/65; PULSE 67; RESP 18; TEMP 37; O2SAT 95
--- NOTE | 2022-02-19 08:37 | HMH.ACPN2 ---
<Elma Huynh - Last Filed: 02/19/22 08:37> Internal Medicine - PN: Subj *Date: 02/19/22 *Time: 08:37 Interval history: Patient states he is feeling much better today. He denies any pain other than general arthritic pain. He states he did not sleep at all last night. He did eat a good breakfast this morning. Exam Vital signs and Labs for Last 24 Hours: Temp Pulse Resp BP Pulse Ox 98.6 F 67 18 120/65 95 02/19/22 08:00 02/19/22 08:00 02/19/22 08:00 02/19/22 08:00 02/19/22 08:00 Laboratory Results - last 24 hr 02/18/22 08:40: Urine Color Yellow, Urine Appearance Clear, Urine pH 7.0, Ur Specific [place] 1.020, Urine Protein 1+, Urine Glucose (UA) Negative, Urine Ketones Trace, Urine Blood 1+, Urine Nitrate Negative, Urine Bilirubin Negative, Urine Urobilinogen 4.0, Ur Leukocyte Esterase Negative, Urine RBC 3-5, Urine WBC Occasional, Ur Squamous Epith Cells 3-5, Urine Bacteria None 02/18/22 08:40: Urine Opiates Screen Negative, Urine Methadone Screen Negative, Ur Barbituates Screen Negative, Ur Phencyclidine Scrn Negative, Ur Amphetamines Screen Negative, U Benzodiazepines Scrn Negative, Urine Cocaine Screen Negative, U Marijuana (THC) Screen Positive H 02/18/22 09:00: CSF Volume 3, CSF Appearance Clear, CSF WBC 619 H, CSF RBC 136, CSF Mononuclear WBCs % 98, CSF Polynuclear WBCs % 2 02/18/22 09:00: CSF Glucose 94 H, CSF Total Protein 191.0 H* 02/18/22 09:30: SARS-CoV-2 (PCR) Not detected, Influenza A Untype (PCR) Not detected, Influenza Type B (PCR) Not detected 02/18/22 16:39: POC Glucose 166 H 02/18/22 20:14: POC Glucose 170 H 02/19/22 06:08: POC Glucose 113 H I & O for Last 24 hours: Intake & Output 02/16/22 02/17/22 02/18/22 02/19/22 11:59 11:59 11:59 11:59 Intake Total 1090 / 1090 Output Total 900 / 900 Balance 190 / 190 Weight 270 lb 248 lb 3.2 oz Microbiology Reports for the Last 24 Hours: Microbiology 02/18/22 09:00 Cerebral Spinal Fluid Gram Stain - Final - Constitutional no acute distress - *Routine Respiratory Exam Present: CTA bilaterally - *Routine Cardiovascular Exam Present: RRR - *Routine Abdominal Exam Present: soft, normoactive bowel sounds. Absent: tenderness - *Routine Extremities Exam Absent: cyanosis, clubbing, edema - *Routine Skin Exam Present: warm. Absent: rash - *Routine Neurological Exam Present: alert, oriented X3 Assessment and Plan (1) Encephalopathy Status: Acute Category: Medical Code(s): G93.40 - Encephalopathy, unspecified (2) Altered mental status Status: Acute Category: Medical Code(s): R41.82 - Altered mental status, unspecified (3) Type 2 diabetes mellitus Status: Chronic Category: Medical Code(s): E11.9 - Type 2 diabetes mellitus without complications (4) Hypertension Status: Chronic Category: Medical Code(s): I10 - Essential (primary) hypertension (5) Depression Status: Chronic Category: Medical Code(s): F32.A - Depression, unspecified (6) GERD (gastroesophageal reflux disease) Status: Chronic Category: Medical Code(s): K21.9 - Gastro-esophageal reflux disease without esophagitis (7) Hyperlipemia Status: Chronic Category: Medical Code(s): E78.5 - Hyperlipidemia, unspecified (8) Hypothyroidism Status: Chronic Category: Medical Code(s): E03.9 - Hypothyroidism, unspecified (9) Leucocytosis Status: Acute Category: Medical Code(s): D72.829 - Elevated white blood cell count, unspecified - Assessment and plan all Dx Assessment and Plan for all problems:: Patient is much improved. Will await final culture results. <Mumtaz Larson - Last Filed: 02/19/22 08:51> Internal Medicine - PN: Subj *Date: 02/19/22 *Time: 08:50 Exam Vital signs and Labs for Last 24 Hours: Temp Pulse Resp BP Pulse Ox 98.6 F 67 18 120/65 95 02/19/22 08:00 02/19/22 08:00 02/19/22 08:00 02/19/22 08:00 02/19/22 08:00 Laboratory Results - last 2
[2022-02-19 08:47] LABS: Basophils # 0.1 K/mm3 (0-0.2); Basophils % 0.8 % (0.1-2.0); Eosinophils # 0.1 K/mm3 (0.0-0.4); Eosinophils % 0.4 % (0.1-12.0); Hematocrit 42.2 % (42.0-52.0); Hemoglobin 14.5 g/dL (14.1-18.0); Lymphocytes # 1.9 K/mm3 (0.7-4.5); Lymphocytes % 15.3 % (10-50); Mean Corpuscular HGB Conc 34.3 g/dL (31.8-35.4); Mean Corpuscular Hemoglobin 30.7 pg (27.0-31.2); Mean Corpuscular Volume 89.3 fl (80-94); Mean Platelet Volume 8.2 fl (7.4-10.4); Monocytes # 0.6 K/mm3 (0.1-1.0); Monocytes % 4.6 % (1.7-9.3); Neutrophils # 9.6 K/mm3 (1.8-7.8); Neutrophils % 78.9 % (37.0-80.0); Platelet Count 295 K/mm3 (142-424); Red Blood Count 4.73 M/mm3 (4.60-6.20); Red Cell Distribution Width 14.4 % (11.5-17.5); White Blood Count 12.2 K/mm3 (4.8-10.8)
[2022-02-19 08:48] LABS: Chloride 104 mmol/L (98-107); Sodium 136 mmol/L (136-145)
[2022-02-19 08:51] LABS: Anion Gap 10.5 mEq/L (5-15); Blood Urea Nitrogen 19 mg/dl (9-20); Calcium 8.7 mg/dl (8.4-10.2); Carbon Dioxide 24 mmol/L (22.0-30.0); Creatinine Clearance Estimated 113 mL/min (50-200); Estimated Glomerular Filt Rate 84 ml/min (>60); GFR (African American) 102 ML/MIN (>60); Glucose 149 mg/dl (74-100)
[2022-02-19 08:56] LABS: Potassium 2.5 mmoL/L (3.5-5.1)
--- NOTE | 2022-02-19 09:02 | PC.NURSE ---
lab called with critical potassium of 2.5. notified at [id number]
[2022-02-19 12:00] VITALS: PULSE 70
[2022-02-19 12:18] LABS: POC Glucose,Bedside 111 (70-110)
[2022-02-19 13:07] VITALS: BMI 32.8
[2022-02-19 16:00] VITALS: BP 108/65; PULSE 55; RESP 18; TEMP 36.5; O2SAT 94
[2022-02-19 20:00] VITALS: BP 102/56; PULSE 66; RESP 18; TEMP 36.7; O2SAT 96
[2022-02-19 20:19] LABS: POC Glucose,Bedside 144 (70-110)
[2022-02-19 21:38] LABS: Vancomycin,Trough 20.6 ug/mL (5.0-10.0)
--- NOTE | 2022-02-19 21:46 | PC.NURSE ---
Critical vanc trough of 20.6 consulted [facility] pharmacy who okayed to continue scheduled vanc at this time.
[2022-02-20 01:34] LABS: Vancomycin,Peak 26.2 ug/ml (11-39)
[2022-02-20 03:31] VITALS: BP 110/65; PULSE 68; RESP 18; TEMP 36.6; O2SAT 95
--- NOTE | 2022-02-20 03:39 | PC.NURSE ---
Patient rested throughout shift. IV ABX administered per MAR. No complaints throughout shift. Patient remains A&O x4. VSS.
[2022-02-20 05:00] VITALS: BMI 33.7
[2022-02-20 06:26] LABS: Basophils # 0.1 K/mm3 (0-0.2); Basophils % 1.3 % (0.1-2.0); Eosinophils # 0.1 K/mm3 (0.0-0.4); Eosinophils % 1.7 % (0.1-12.0); Hematocrit 43.8 % (42.0-52.0); Hemoglobin 14.8 g/dL (14.1-18.0); Lymphocytes # 2.3 K/mm3 (0.7-4.5); Lymphocytes % 29.7 % (10-50); Mean Corpuscular HGB Conc 33.8 g/dL (31.8-35.4); Mean Corpuscular Hemoglobin 30.4 pg (27.0-31.2); Mean Platelet Volume 8.5 fl (7.4-10.4); Monocytes # 0.5 K/mm3 (0.1-1.0); Neutrophils # 4.6 K/mm3 (1.8-7.8); Neutrophils % 60.4 % (37.0-80.0); Platelet Count 303 K/mm3 (142-424); Red Blood Count 4.87 M/mm3 (4.60-6.20); Red Cell Distribution Width 14.3 % (11.5-17.5); White Blood Count 7.6 K/mm3 (4.8-10.8)
[2022-02-20 06:37] LABS: Anion Gap 9.3 mEq/L (5-15); Blood Urea Nitrogen 16 mg/dl (9-20); Calcium 8.5 mg/dl (8.4-10.2); Carbon Dioxide 29 mmol/L (22.0-30.0); Chloride 103 mmol/L (98-107); Creatinine Clearance Estimated 116 mL/min (50-200); Estimated Glomerular Filt Rate 96 ml/min (>60); GFR (African American) 116 ML/MIN (>60); Glucose 98 mg/dl (74-100); Potassium 3.3 mmoL/L (3.5-5.1); Sodium 138 mmol/L (136-145)
[2022-02-20 08:00] VITALS: BP 120/72; PULSE 66; RESP 20; TEMP 36.4; O2SAT 97
--- NOTE | 2022-02-20 08:16 | HMH.ACPN2 ---
<Elma Huynh - Last Filed: 02/20/22 08:16> Internal Medicine - PN: Subj *Date: 02/20/22 *Time: 08:16 Interval history: Patient states he is feeling better today. He was able to sleep about 4 hours and is sitting up in the chair this morning. He denies any pain and is anxious to get home. He is eating well. Exam Vital signs and Labs for Last 24 Hours: Temp Pulse Resp BP Pulse Ox 97.9 F 68 18 110/65 95 02/20/22 03:31 02/20/22 03:31 02/20/22 03:31 02/20/22 03:31 02/20/22 03:31 Laboratory Results - last 24 hr 02/19/22 08:33: WBC 12.2 H, RBC 4.73, Hgb 14.5, Hct 42.2, MCV 89.3, MCH 30.7, MCHC 34.3, RDW 14.4, Plt Count 295 D, MPV 8.2, Neut % (Auto) 78.9, Lymph % (Auto) 15.3, [place] % (Auto) 4.6, Eos % (Auto) 0.4, Baso % (Auto) 0.8, Neut # (Auto) 9.6 H, Lymph # (Auto) 1.9, [place] # (Auto) 0.6, Eos # (Auto) 0.1, Baso # (Auto) 0.1 02/19/22 08:33: Sodium 136, Potassium 2.5 L*, Chloride 104, Carbon Dioxide 24, Anion Gap 10.5, BUN 19, Creatinine 0.90, Estimated Creat Clear 113, Estimated GFR 84, Est GFR ( Amer) 102, Glucose 149 H, Calcium 8.7 02/19/22 11:35: POC Glucose 111 H 02/19/22 20:11: POC Glucose 144 H 02/19/22 20:38: Vancomycin Trough 20.6 H 02/20/22 00:44: Vancomycin Peak 26.2 02/20/22 05:44: WBC 7.6 D, RBC 4.87, Hgb 14.8, Hct 43.8, MCV 90.0, MCH 30.4, MCHC 33.8, RDW 14.3, Plt Count 303, MPV 8.5, Neut % (Auto) 60.4, Lymph % (Auto) 29.7, [place] % (Auto) 7.0, Eos % (Auto) 1.7, Baso % (Auto) 1.3, Neut # (Auto) 4.6, Lymph # (Auto) 2.3, [place] # (Auto) 0.5, Eos # (Auto) 0.1, Baso # (Auto) 0.1 02/20/22 05:44: Sodium 138, Potassium 3.3 L D, Chloride 103, Carbon Dioxide 29, Anion Gap 9.3, BUN 16, Creatinine 0.80, Estimated Creat Clear 116, Estimated GFR 96, Est GFR ( Amer) 116, Glucose 98 D, Calcium 8.5 I & O for Last 24 hours: Intake & Output 02/17/22 02/18/22 02/19/22 02/20/22 11:59 11:59 11:59 11:59 Intake Total 1090 / 1090 600 / 600 Output Total 900 / 900 400 / 400 Balance 190 / 190 200 / 200 Weight 270 lb 248 lb 3.2 oz 254 lb 12.8 oz Microbiology Reports for the Last 24 Hours: Microbiology 02/18/22 09:00 Cerebral Spinal Fluid Gram Stain - Final 02/18/22 09:00 Cerebral Spinal Fluid CSF Culture - Preliminary NO GROWTH AFTER 24 HOURS - Constitutional no acute distress - *Routine Respiratory Exam Present: CTA bilaterally - *Routine Cardiovascular Exam Present: RRR - *Routine Abdominal Exam Present: soft, normoactive bowel sounds. Absent: tenderness - *Routine Extremities Exam Absent: cyanosis, clubbing, edema - *Routine Skin Exam Present: warm. Absent: rash - *Routine Neurological Exam Present: alert, oriented X3 Assessment and Plan (1) Encephalopathy Status: Acute Category: Medical Code(s): G93.40 - Encephalopathy, unspecified (2) Altered mental status Status: Acute Category: Medical Code(s): R41.82 - Altered mental status, unspecified (3) Type 2 diabetes mellitus Status: Chronic Category: Medical Code(s): E11.9 - Type 2 diabetes mellitus without complications (4) Hypertension Status: Chronic Category: Medical Code(s): I10 - Essential (primary) hypertension (5) Depression Status: Chronic Category: Medical Code(s): F32.A - Depression, unspecified (6) GERD (gastroesophageal reflux disease) Status: Chronic Category: Medical Code(s): K21.9 - Gastro-esophageal reflux disease without esophagitis (7) Hyperlipemia Status: Chronic Category: Medical Code(s): E78.5 - Hyperlipidemia, unspecified (8) Hypothyroidism Status: Chronic Category: Medical Code(s): E03.9 - Hypothyroidism, unspecified (9) Leucocytosis Status: Acute Category: Medical Code(s): D72.829 - Elevated white blood cell count, unspecified - Assessment and plan all Dx Assessment and Plan for all problems:: CSF gram stain showed no growth at 24 hours. Blood cultures are still pending. Will discuss f
--- NOTE | 2022-02-20 09:00 | HMH.ACPN2 ---
Internal Medicine - PN: Subj *Date: 02/20/22 *Time: 09:00 Exam Vital signs and Labs for Last 24 Hours: Temp Pulse Resp BP Pulse Ox 97.6 F 66 20 120/72 97 02/20/22 08:00 02/20/22 08:00 02/20/22 08:00 02/20/22 08:00 02/20/22 08:00 Laboratory Results - last 24 hr 02/19/22 11:35: POC Glucose 111 H 02/19/22 20:11: POC Glucose 144 H 02/19/22 20:38: Vancomycin Trough 20.6 H 02/20/22 00:44: Vancomycin Peak 26.2 02/20/22 05:44: WBC 7.6 D, RBC 4.87, Hgb 14.8, Hct 43.8, MCV 90.0, MCH 30.4, MCHC 33.8, RDW 14.3, Plt Count 303, MPV 8.5, Neut % (Auto) 60.4, Lymph % (Auto) 29.7, [place] % (Auto) 7.0, Eos % (Auto) 1.7, Baso % (Auto) 1.3, Neut # (Auto) 4.6, Lymph # (Auto) 2.3, [place] # (Auto) 0.5, Eos # (Auto) 0.1, Baso # (Auto) 0.1 02/20/22 05:44: Sodium 138, Potassium 3.3 L D, Chloride 103, Carbon Dioxide 29, Anion Gap 9.3, BUN 16, Creatinine 0.80, Estimated Creat Clear 116, Estimated GFR 96, Est GFR ( Amer) 116, Glucose 98 D, Calcium 8.5 I & O for Last 24 hours: Intake & Output 02/17/22 02/18/22 02/19/22 02/20/22 23:59 23:59 23:59 23:59 Intake Total 490 / 730 1200 / 1200 Output Total 900 / 900 400 / 400 Balance -410 / -170 800 / 800 Weight 245 lb 7 oz 248 lb 3.142 oz 254 lb 12.8 oz Microbiology Reports for the Last 24 Hours: Microbiology 02/18/22 09:00 Cerebral Spinal Fluid Gram Stain - Final 02/18/22 09:00 Cerebral Spinal Fluid CSF Culture - Preliminary NO GROWTH AFTER 24 HOURS Assessment and Plan (1) Encephalopathy Status: Acute Category: Medical Code(s): G93.40 - Encephalopathy, unspecified (2) Altered mental status Status: Acute Category: Medical Code(s): R41.82 - Altered mental status, unspecified (3) Type 2 diabetes mellitus Status: Chronic Category: Medical Code(s): E11.9 - Type 2 diabetes mellitus without complications (4) Hypertension Status: Chronic Category: Medical Code(s): I10 - Essential (primary) hypertension (5) Depression Status: Chronic Category: Medical Code(s): F32.A - Depression, unspecified (6) GERD (gastroesophageal reflux disease) Status: Chronic Category: Medical Code(s): K21.9 - Gastro-esophageal reflux disease without esophagitis (7) Hyperlipemia Status: Chronic Category: Medical Code(s): E78.5 - Hyperlipidemia, unspecified (8) Hypothyroidism Status: Chronic Category: Medical Code(s): E03.9 - Hypothyroidism, unspecified (9) Leucocytosis Status: Acute Category: Medical Code(s): D72.829 - Elevated white blood cell count, unspecified (10) Viral meningitis, unspecified Status: Acute Category: Medical Code(s): A87.9 - Viral meningitis, unspecified - Assessment and plan all Dx Assessment and Plan for all problems:: Viral meningitis added to problem list.
--- NOTE | 2022-02-20 09:27 | HMH.DCSUM ---
General - General Admission date:: 02/18/22 Discharge date: 02/20/22 HPI HPI: Mr. Dejesus is a 65-year-old male patient with a history of hypertension, diabetes type 2, hyperlipidemia, acid reflux, gout, depression, Psoriatec arthritis, prostate cancer, lumbar disc disease, and sleep apnea on BiPAP who presented to [facility] with family after found him to have altered mental status. History is obtained from patient, , and daughter who is a RN working for [employer] cancer center at . The stated that he had nausea and vomiting all day yesterday. Patient states he also had some diarrhea. The awakened and found him wandering in the house. He did not know where he was or who he was. Thus they brought him to the emergency room. The is not aware that he had any fever and patient denies any upper respiratory symptoms. Upon arrival to the emergency room he did have a temperature of 101.9. He became quite agitated, grabbing at staff and striking his head against the rail of the bed. He was placed into four-point soft restraints and required multiple staff members to help hold him down to prevent him from hurting himself or anyone else. He also required intramuscular olanzapine x2 and IV ketamine in order for him to lie still for imaging and lumbar puncture. He was also given 10 mg of IV dexamethasone and given IV vancomycin, Rocephin, and acyclovir. Testing revealed a white blood cell count of 12,400 with a hemoglobin of 16.3 and hematocrit of 47. Electrolytes with low potassium at 3.1. Renal function showed a BUN of 23 and creatinine of 0.9. Blood sugar was 173. Liver function studies were all normal. Urine showed protein and blood and otherwise noncontributory. Spinal fluid was clear in appearance with a white blood cell count elevated at 619 and glucose elevated at 94 and total protein elevated at 191. Chest x-ray showed no acute cardiopulmonary processes. CT of the head/brain without contrast showed no definite acute intracranial abnormality. CTA of the head revealed no evidence of significant stenosis. CTA of the neck revealed no significant stenosis. After medication administration patient gradually relaxed and was more calm. He was more oriented and remained alert and awake. He was able to sit up on the edge of the bed and converse normally. The ER physician did speak with Dr. Landrum at the [facility]. He was placed on the list for admission. He was then admitted to [facility] for further evaluation/assessment and administration of IV antibiotics. Hospital Course Hospital Course: The patient was started on IV Rocephin, acyclovir, and vancomycin while awaiting final culture results. His home medications were reordered and he was started on sliding scale insulin. It was felt he most likely had viral meningitis. By 02/19/2022, he was feeling much better. He denied any pain other than general arthritic pain. He was awake and alert and eating well. By 02/20/2022 he was sitting up in the chair and anxious to go home. His white blood cell count had normalized. His potassium had improved. His CSF gram stain showed no growth at 48 hours and his blood cultures also showed no growth at 48 hours. He was stable to be discharged home on 10 days of Valtrex. He will follow-up with Dr. Larson. Objective Vital signs: Temp Pulse Resp BP Pulse Ox 97.6 F 66 20 120/72 97 02/20/22 08:00 02/20/22 08:00 02/20/22 08:00 02/20/22 08:00 02/20/22 08:00 Narrative: - Constitutional no acute distress, cooperative <Mary Caal 02/18/22 16:01> Comments: assists with exam; <Mary Caal 02/18/22 16:01> - *Routine HEENT Exam Head: Present: normocephalic, atraumatic <Mary Caal 02/18/22 16:01> Eye: Present: EOMI, PERRL, normal accommodation. Absent: conjunctival icterus, scleral injection, nystagmus <Mary Caal 02/18/22 16:01> ENT: Present
[2022-02-20 09:33] LABS: Vancomycin,Trough 13.6 ug/mL (5.0-10.0)
--- NOTE | 2022-02-20 09:44 | HMH.PHAINT ---
DISCHARGE MEDICATION COUNSELING PROVIDED. DISCUSSED VALTREX AND WHAT TO EXPECT (POSSIBLE NAUSEA/UPSET STOMACH, HEADACHE) AND HOW TO TAKE (THREE TIMES DAILY WITH OR WITHOUT FOOD, CAN TAKE WITH FOOD IF GI UPSET). PATIENT ENDORSED NO QUESTIONS AT THIS TIME.
[2022-02-20 11:58] LABS: POC Glucose,Bedside 98 (70-110)
--- NOTE | 2022-02-23 16:33 | CARE MANAGER ---
Contacted patient related to follow up from hospital discharge. Patient states he feels better today. He had some nausea and vomiting a couple nights ago that he thinks was caused by the anti-viral he is having to take, but he continues to take them and is doing well. He is aware of his follow up appointment and denies any questions or concerns. KARLA Vo
[2022-02-24 19:08] LABS: Enterovirus,CSF PCR Negative (Negative)
== END 2022-02-20 12:55 | disposition home or self-care (01) | DRG 75 ==
LOC: ER 09:34 → 2ND 12:47
PROVIDERS: Emergency Medicine; Admitting Provider Family Medicine; Emergency Provider Emergency Medicine; PCP Family Medicine; Visit Provider Family Medicine
DX: A87.9 Viral meningitis, unspecified (principal); G93.40 Encephalopathy, unspecified; Z85.46 Personal history of malignant neoplasm of prostate; F32.A Depression, unspecified; E11.9 Type 2 diabetes mellitus without complications; Z20.822 Contact with and (suspected) exposure to COVID-19; K21.9 Gastro-esophageal reflux disease without esophagitis; E78.5 Hyperlipidemia, unspecified; I10 Essential (primary) hypertension; E03.9 Hypothyroidism, unspecified; Z78.1 Physical restraint status; Z79.84 Long term (current) use of oral hypoglycemic drugs
CPT/HCPCS: 62270; 36415; 51702; 70450; 70496; 70498; 71045; 80048; 80053; 80202; 80305; 81001; 82803; 82945; 82962; 83690; 84155; 85025; 85610; 85730; 87040; 87070; 87205; 87498; 89051; 93005; 96372; 96375; 96376; 99291; C9803; J0696; J3370; Q9967; U0003; U0005

== ENCOUNTER → 2022-03-10 07:29 | Outpatient (CLI) | payer MEDICARE, SELFPAY ==
--- NOTE | 2022-03-10 07:30 | CA_ITS ---
APPROVED REPORT EXAM: Comprehensive 2D, Doppler, and color-flow Echocardiogram Inner Diameter Grinder Tool: Pooja Prajapati CRT Ht: 6 ft 1 in Wt: 256lbs BSA: 2.39 BP: 102/63 mmHg Indications: Shortness of Breath, covid 2020, BRETT, ex smoker 2D Dimensions LVOT 1.94 cm (M/F) 1.5-2.5 LA Volume 36.30 mL LA Volume Index 15.20 mL/m2 (M/F) 16-34 M-Mode Dimensions RVDd 3.60 cm (0.9-2.6) LA Diam 4.27 cm (1.9-4.0) LVDd 5.85 cm (3.5-5.7) Ao Diam 5.60 cm (2.0-3.7) LVDs 3.52 cm (3.5-5.7) IVSd 1.70 cm (0.6-1.1) PWd 0.93 cm (0.6-1.1) EF (Teich) 69.60% FS 39.80% EDV (Teich) 169.90 mL TAPSE 1.79 (<1.7) ESV (Teich) 51.60 mL LV Diastology E Decel Time 277.00 (160-240 msec) E/A Ratio 0.69 MED E' 4.40 (< 7 cm/sec) MED A' 8.60 cm/s E'/MED E' Ratio 11.48 (>14) LAT E' 6.20 (<10 cm/sec) LAT A' 11.30 cm/s E/LAT E' Ratio 8.15 (>14) Aortic Valve AI PHT 525.00 ms AO Peak GR. 5.30 mmHg Mitral Valve MV A Velocity 73.00 (40-130 cm/s) E/A Ratio 0.69 MV Decel. Time 277.00 (160-240 ms) Pulmonary Valve PV Peak Velocity 156.00 (50-150 cm/s) Tricuspid Valve TR P. Velocity 213.00 cm/s RAP Estimate 10.00 mmHg RVSP 28.20 mmHg Left Ventricle Left atrium is mildly enlarged, left ventricle is normal size, mild concentric left ventricular hypertrophy, estimated ejection fraction 55% with no regional wall motion abnormality, grade 1 diastolic dysfunction seen without tissue Doppler evidence of raise left atrial pressure. Right Ventricle Right atrium and right ventricle are mildly enlarged with normal contractility. Aortic Valve Aortic valve is thickened and calcified without aortic stenosis, there is mild aortic insufficiency. Mitral Valve Mitral valve grossly normal, there is mild mitral regurgitation. Tricuspid Valve Tricuspid valve grossly normal, there is mild tricuspid regurgitation, tricuspid regurgitation jet velocity is inadequate for calculation of the right ventricular systolic pressure. Pulmonic Valve Pulmonic valve is poorly visualized. Great Vessels Aortic root is normal size. Inferior vena cava is poorly visualized. Pericardium No significant pericardial effusion. Conclusion 1. Mild biatrial enlargement, normal left ventricular size, mild concentric left ventricular hypertrophy, estimated ejection fraction 55% with no regional wall motion abnormality, grade 1 diastolic dysfunction seen without tissue Doppler evidence of a left atrial pressure. 2. Mildly enlarged right ventricle with normal contractility. 3. Mild aortic, mitral and tricuspid regurgitation. 4. No significant pericardial effusion 5. Vena cava is poorly visualized. Electronically signed by : Deven Lane MD 03/10/2022 20:03:55
== END ==
PROVIDERS: PCP Family Medicine; Visit Provider Internal Medicine Pulmonary Disease
DX: R06.09 Other forms of dyspnea (principal)
CPT/HCPCS: 93306

== ENCOUNTER 2022-04-04 09:40 | Observation (INO) | payer MEDICARE, SELFPAY ==
[2022-04-04] VITALS (23 sets, daily range): BP systolic 114–158; BP diastolic 79–109; PULSE 75–111; RESP 12–24; TEMP 36.6–37.1; O2SAT 93–98; BMI 32.1; BMI 31.7
--- NOTE | 2022-04-04 10:09 | HMH.EDUTC ---
[facility] [place] Clinical Impression: Disorders of hypoglossal nerve, Dysarthria Dysphagia Qualifiers: Dysphagia type: unspecified Qualified Code(s): R13.10 - Dysphagia, unspecified Disposition: Still a Patient Condition on Discharge: Fair Referrals: Mumtaz Larson MD [Primary Care Provider] - Time of Disposition: 10:30 Medical Decision Making - Medical Records Medical records reviewed: No: I reviewed the patient's medical records. - Jb Inquiry Pt receiving controlled substance: No Vital Signs: 04/04/22 10:02 Temperature 97.9 F Temperature Source Oral Pulse Rate [Left Radial] 107 H Respiratory Rate 18 Blood Pressure [Right Arm] 114/79 Blood Pressure Mean [Right Arm] 90 02 Sat by Pulse Oximetry 96 Medical Decision Narrative: He was transferred to the ER due to the nature of his symptoms. His symptoms are worrisome for a neurological disorder, such as myasthenia gravis [facility] [place] - General Stated complaint: weakness in tongue Time Seen by Provider: 04/04/22 10:23 Description of Symptoms (Recalled from Triage Doc. by RN): patient comes in today for muscle weakness. patient states that symptoms began 1 week ago. he was seen at his pcp, doctor told patient to take benadryl with the medication but it has not helped. patient is have tongue muscle weakness, difficulty speaking, eating, drinking and swallowing. HEENT Symptoms (Recalled from RN notes): No Resp Symptoms (Recalled from RN notes): No Skin Symptoms (Recalled from RN notes): No MS Symptoms (Recalled from RN notes): No Functional Status (Recalled from RN notes): wnl - History of Present Illness Provider Complaint: He states that over the past 1 week, he has had weakening of his tongue and progressive difficulty swallowing his medications and foods. At first, his symptoms were better in the morning when he awoke and got worse toward the evening and night. But, at this point, his symptoms are what he describes as severe all day and evening. - Related Data Home Medications Medication Instructions Recorded Confirmed atenolol 100 mg-chlorthalidone 25 1 tab PO DAILY 10/17/18 03/03/22 mg tablet Budesonide [Budesonide EC] 6 mg PO DAILY 02/18/22 03/03/22 Duloxetine HCl [Cymbalta] 120 mg PO BID 02/18/22 03/03/22 Fenofibrate Nanocrystallized 145 mg PO DAILY 02/18/22 03/03/22 [Fenofibrate] Levothyroxine Sodium 50 mcg PO DAILY 02/18/22 03/03/22 [Levothyroxine 50mcg (0.05mg) Tab] Metformin HCl [Metformin HCl ER] 500 mg PO DAILY 02/18/22 03/03/22 Omeprazole [Omeprazole 20mg 20 mg PO DAILY 02/18/22 03/03/22 Capsule] Potassium Chloride [K-Tab ER 20 20 meq PO BID 02/18/22 03/03/22 mEq] Quetiapine Fumarate [Seroquel] 400 mg PO BID 02/18/22 03/03/22 allopurinoL [Allopurinol 300mg 300 mg PO DAILY 02/18/22 03/03/22 tablet] Previous Rx's Medication Instructions Recorded Valacyclovir HCl [Valacyclovir] 1,000 mg PO TID #30 tab 02/20/22 ipratropium bromide 21 mcg (0.03 2 spray INTRANASAL QHS #30 ml 02/23/22 %) nasal spray pramipexole 0.25 mg tablet 0.125 - 0.25 mg PO HS #30 tab 02/23/22 Allergies Allergy/AdvReac Type Severity Reaction Status Date / Time No Known Allergies Allergy Verified 03/03/22 10:03 - Worker's Comp Is this a Worker's Comp case?: No [facility] History - Hepatitis A Screen Attestation statement:: This patient has been screened for Hepatitis A risk factors. I have reviewed the patient's past medical history: Yes Medical History: Reports:: Anxiety, Cancer, Depression, Diabetes Mellitus Type 2, Gastroesophageal Reflux Disease(GERD), Hiatal Hernia, Hyperlipidemia, Hypertension, Lung Disease Denies:: Diabetes Mellitus Type 1, Internal Pacemaker, MRSA, Palpitations, Seizures Other Medical History: Reports: Arthritis, Hypothyroidism. Denies: Blood Transfusion Reaction Laterality Cases: Bilateral: Tonsillectomy Other Surgeries: Yes: Appendectomy, Colonoscopy, Hernia Repair. No: Pacemaker Amputation
--- NOTE | 2022-04-04 10:38 | HMH.EDGENADL ---
ED Disposition Clinical Impression: Disorders of hypoglossal nerve, Dysarthria Dysphagia Qualifiers: Dysphagia type: unspecified Qualified Code(s): R13.10 - Dysphagia, unspecified Disposition: Xfer Critical Access Hosp Condition on Discharge: Good Referrals: Mumtaz Larson MD [Primary Care Provider] - - Critical Care Critical Care Time: Yes Attestation: On 04/04/22, the high probability of a clinically significant, sudden or life threatening deterioration of the following system(s) required my full and direct attention, intervention and personal management. The time I documented below is in addition to time spent performing reported procedures but includes the following listed in this critical care notation. Total Critical Care Time: 45 Vital system(s) involved:: Central Nervous System My critical care processes included: Assessment & monitoring of V/S, Initial and Re-exams, Data Review/Interpretation, Coordinating Care, Medication Orders and management, Documentation Medical Decision Making - Medical Records Medical records reviewed: Yes: I reviewed the patient's medical records. - Jb Inquiry Pt receiving controlled substance: No Vital Signs: 04/04/22 10:02 04/04/22 10:28 04/04/22 10:30 Temperature 97.9 F 98.7 F Temperature Source Oral Oral Pulse Rate 91 H Pulse Rate [Left Radial] 107 H 111 H Respiratory Rate 18 16 19 Blood Pressure 131/92 H Blood Pressure [Right Arm] 114/79 127/92 H Blood Pressure Mean 96 Blood Pressure Mean [Right Arm] 90 103 Blood Pressure Source [Right Arm] Manual Cuff/ Palpation Blood Pressure Position [Right Arm] Sitting 02 Sat by Pulse Oximetry 96 98 95 Oxygen Delivery Method Room Air 04/04/22 11:00 04/04/22 11:30 04/04/22 12:00 Temperature Temperature Source Pulse Rate 93 H 94 H 96 H Pulse Rate [Left Radial] Respiratory Rate 18 13 17 Blood Pressure 127/93 H 123/88 115/89 Blood Pressure [Right Arm] Blood Pressure Mean 98 94 97 Blood Pressure Mean [Right Arm] Blood Pressure Source [Right Arm] Blood Pressure Position [Right Arm] 02 Sat by Pulse Oximetry 95 93 L 96 Oxygen Delivery Method 04/04/22 12:30 04/04/22 13:00 04/04/22 13:30 Temperature Temperature Source Pulse Rate 90 94 H 96 H Pulse Rate [Left Radial] Respiratory Rate 14 12 12 Blood Pressure 138/109 H 150/100 H 133/108 H Blood Pressure [Right Arm] Blood Pressure Mean 118 116 117 Blood Pressure Mean [Right Arm] Blood Pressure Source [Right Arm] Blood Pressure Position [Right Arm] 02 Sat by Pulse Oximetry 96 95 95 Oxygen Delivery Method 04/04/22 14:00 04/04/22 14:30 04/04/22 15:00 Temperature Temperature Source Pulse Rate 92 H 94 H 82 Pulse Rate [Left Radial] Respiratory Rate 15 12 12 Blood Pressure 150/104 H 155/108 H 150/103 H Blood Pressure [Right Arm] Blood Pressure Mean 127 130 120 Blood Pressure Mean [Right Arm] Blood Pressure Source [Right Arm] Blood Pressure Position [Right Arm] 02 Sat by Pulse Oximetry 95 96 95 Oxygen Delivery Method 04/04/22 15:30 04/04/22 16:00 04/04/22 16:30 Temperature Temperature Source Pulse Rate 94 H 103 H 88 Pulse Rate [Left Radial] Respiratory Rate 18 13 16 Blood Pressure 146/109 H 155/104 H 140/106 H Blood Pressure [Right Arm] Blood Pressure Mean 118 118 112 Blood Pressure Mean [Right Arm] Blood Pressure Source [Right Arm] Blood Pressure Position [Right Arm] 02 Sat by Pulse Oximetry 95 95 95 Oxygen Delivery Method - Lab Data Lab results reviewed: Yes: I reviewed the patient's lab results. Lab Results 04/04/22 10:40: WBC 6.9, RBC 5.48, Hgb 16.5, Hct 49.7, MCV 90.7, MCH 30.2, MCHC 33.3, RDW 14.2, Plt Count 353, MPV 8.5, Neut % (Auto) 65.8, Lymph % (Auto) 23.7, [place] % (Auto) 5.4, Eos % (Auto) 1.3, Baso % (Auto) 3.7 H, Neut # (Auto) 4.5, Lymph # (Auto) 1.6, [place] # (Auto) 0.4, Eos # (Auto) 0.1, Baso # (Auto) 0.3 H 04/04/22 10:40: Sod
--- NOTE | 2022-04-04 11:00 | PC.NURSE ---
family at bedside
[2022-04-04 11:01] LABS: Basophils # 0.3 K/mm3 (0-0.2); Basophils % 3.7 % (0.1-2.0); Eosinophils # 0.1 K/mm3 (0.0-0.4); Eosinophils % 1.3 % (0.1-12.0); Hematocrit 49.7 % (42.0-52.0); Hemoglobin 16.5 g/dL (14.1-18.0); Lymphocytes # 1.6 K/mm3 (0.7-4.5); Lymphocytes % 23.7 % (10-50); Mean Corpuscular HGB Conc 33.3 g/dL (31.8-35.4); Mean Corpuscular Hemoglobin 30.2 pg (27.0-31.2); Mean Corpuscular Volume 90.7 fl (80-94); Mean Platelet Volume 8.5 fl (7.4-10.4); Monocytes # 0.4 K/mm3 (0.1-1.0); Monocytes % 5.4 % (1.7-9.3); Neutrophils # 4.5 K/mm3 (1.8-7.8); Neutrophils % 65.8 % (37.0-80.0); Platelet Count 353 K/mm3 (142-424); Red Blood Count 5.48 M/mm3 (4.60-6.20); Red Cell Distribution Width 14.2 % (11.5-17.5); White Blood Count 6.9 K/mm3 (4.8-10.8)
[2022-04-04 11:14] LABS: Chloride 99 mmol/L (98-107); Potassium 3.3 mmoL/L (3.5-5.1); Sodium 137 mmol/L (136-145)
[2022-04-04 11:16] LABS: Blood Urea Nitrogen 15 mg/dl (9-20); Creatinine Clearance Estimated 111 mL/min (50-200); Estimated Glomerular Filt Rate 84 ml/min (>60); GFR (African American) 102 ML/MIN (>60)
[2022-04-04 11:17] LABS: Alanine Aminotransferase 24 U/L (12-78); Albumin/Globulin Ratio 1.8 (1.1-1.8); Alkaline Phosphatase 60 U/L (38-126); Anion Gap 15.3 mEq/L (5-15); Aspartate Amino Transferase 36 U/L (17-59); Bilirubin,Total 0.6 mg/dl (0.2-1.3); Calcium 9.9 mg/dl (8.4-10.2); Carbon Dioxide 26 mmol/L (22.0-30.0); Globulin 2.8 g/dL (1.3-3.2); Glucose 113 mg/dl (74-100); Total Protein,Serum 7.8 g/dl (6.3-8.2)
[2022-04-04 11:23] LABS: C-Reactive Protein 3.1 mg/L (0-4)
--- NOTE | 2022-04-04 11:29 | CT_ITS ---
PROCEDURE INFORMATION: Exam: CT Head Without Contrast Exam date and time: 04/04/2022 12:19 PM Age: 66 years old Clinical indication: Other: Difficult tongue movement; Prior surgery; Additional info: Difficulty with tongue movement, swallowing TECHNIQUE: Imaging protocol: Computed tomography of the head without contrast. Radiation optimization: All CT scans at this facility use at least one of these dose optimization techniques: automated exposure control; mA and/or kV adjustment per patient size (includes targeted exams where dose is matched to clinical indication); or iterative reconstruction. COMPARISON: CT HEAD/BRAIN WO CON 02/18/2022 7:36 AM FINDINGS: Brain: Symmetric caliber of the cortical sulci. Small bilateral basal ganglia lacunar infarcts, believed to be chronic. No acute cortical infarct, mass effect, or intracranial hemorrhage. Cerebral ventricles: Normal configuration of the ventricles. Paranasal sinuses: Maxillary sinus mucoperiosteal disease. Mastoid air cells: No mastoid effusion. Bones/joints: No acute calvarial pathology. Soft tissues: Unremarkable soft tissues. 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
[2022-04-04 11:40] LABS: Erythrocyte Sedimentation Rate 7 mm/hr (0-20)
--- NOTE | 2022-04-04 12:22 | PC.NURSE ---
PT TO CT AT THIS TIME
--- NOTE | 2022-04-04 12:45 | PC.NURSE ---
Rounded on patient and family member. Asked if they needed anything and they said no.
--- NOTE | 2022-04-04 12:59 | PC.NURSE ---
[facility]AMP CLOTH PROVIDED FOR DRY MOUTH, PT WITHOUT NEEDS
--- NOTE | 2022-04-04 13:27 | PC.NURSE ---
On the phone with Michelle
--- NOTE | 2022-04-04 13:35 | PC.NURSE ---
[facility] said they would call back when they had a provider available.
--- NOTE | 2022-04-04 13:52 | PC.NURSE ---
on the phone with NEURO
--- NOTE | 2022-04-04 14:19 | PC.NURSE ---
[facility] on the phone with ER Doctor
--- NOTE | 2022-04-04 14:31 | PC.NURSE ---
ER MD AVILEZ on phone with DR TATE
--- NOTE | 2022-04-04 15:14 | PC.NURSE ---
[facility] has been called will call back. No immediate bed placement at the moment will be on a waiting list.
--- NOTE | 2022-04-04 15:27 | PC.NURSE ---
contacted cornelius perez MD speaking with transfer center at the moment
--- NOTE | 2022-04-04 16:09 | PC.NURSE ---
[facility] called and said they have not been able to get in touch with hospitalist. They said they will call use as soon as they get in touch with someone.
--- NOTE | 2022-04-04 16:41 | PC.NURSE ---
Hospitalist accepted patient. They are working on getting him a bed. Sending face sheet over now.
--- NOTE | 2022-04-04 17:34 | PC.NURSE ---
Contacted for hospitalist to consult with ER MD Duran
--- NOTE | 2022-04-04 17:45 | PC.NURSE ---
MAGGY on the phone with [facility].
--- NOTE | 2022-04-04 17:57 | PC.NURSE ---
Called Radiology for a disk for transfer
--- NOTE | 2022-04-04 18:00 | PC.NURSE ---
pt on several hosp waiting list, warehouse order puller informed of pt on waiting lists.
--- NOTE | 2022-04-04 18:04 | PC.NURSE ---
is asking if pt can go home, states he has had fluids and she dont feel he will dehydrate over night and that he will be able to fu with his primary on Wednesday. States she is a warehouse supervisor and her daughter is a nurse and they can manage him at home. aware and will talk with the family at pt.
[2022-04-04 19:17] LABS: Coronavirus 19, PCR Not Detected (NotDetected); Influenza A, PCR Not Detected (NotDetected); Influenza B, PCR Not Detected (NotDetected)
--- NOTE | 2022-04-04 19:52 | PC.NURSE ---
[facility] MADE AWARE THAT THICK LIQUID DIET HAS BEEN ORDERED, BUT PATIENT HAS FAILED BEDSIDE SWALLOW EXAM AND WILL NEED TO BE NPO UNTIL SWALLOW EVAL PERFORMED.
--- NOTE | 2022-04-04 19:58 | PC.NURSE ---
PT ARRIVED TO FLOOR VIA W/C FROM ED W/STAFF @ 1957
--- NOTE | 2022-04-04 21:50 | PC.NURSE ---
[facility] pt access complex care nurse practitioner called for update on patient, states no bed at this time, will call back when bed available.
--- NOTE | 2022-04-05 03:46 | PC.NURSE ---
Contacted by patient b2b outside sales representative w/ [facility]. No beds available at this time. Update given. Pt b2b outside sales representative states they will call back later for update.
[2022-04-05 04:00] VITALS: BP 154/94; PULSE 62; RESP 16; TEMP 36.4; O2SAT 95
--- NOTE | 2022-04-05 04:09 | PC.NURSE ---
pt with difficulty with articulation of words and had difficulty swallowing ibuprofen given for complaints of headache, pt states that he cannot move his tongue around and gets choked. pt with history of prostate radiation seed implants for cancer and some difficulty passing water, states he takes flomax at home, uop was 300ml len color urine, elevated b/p noted, pt stated he takes b/p meds at home and has not had for couple days due to swallowing difficulty, no other issues noted, headache was relieved after morphine dose given, pt stated he takes seroquel at home and has not had either.
[2022-04-05 04:40] VITALS: BMI 31.8
[2022-04-05 07:23] VITALS: BP 133/85; PULSE 83; RESP 18; TEMP 36.7; O2SAT 94
--- NOTE | 2022-04-05 08:25 | HMH.PHAVTE ---
[facility] Pharmacy VTE Monitoring - Patient Demographics Admission date: 04/05/22 Report Date: 04/05/22 Time: 08:25 Allergies/Adverse Reactions: Patient Allergies No Known Allergies Allergy (Verified 03/03/22 10:03) Height: 1.85 m Weight: 109.089 kg Patient Problems: Current Active Problems Disorders of hypoglossal nerve (Acute) Dysphagia (Acute) Dysarthria (Acute) - VTE Risk Labs: VTE Related Lab Results Hgb 16.5 g/dL (14.1-18.0) 04/04/22 10:40 Hct 49.7 % (42.0-52.0) 04/04/22 10:40 Plt Count 353 K/mm3 (142-424) 04/04/22 10:40 BUN 15 mg/dl (9-20) 04/04/22 10:40 Creatinine 0.90 mg/dl (0.66-1.25) 04/04/22 10:40 Estimated Creat Clear 111 mL/min (50-200) 04/04/22 10:40 Was VTE Risk Assessment Performed: Yes VTE Score: 3 VTE Risk Level: Low Risk Clinical Trial Participant: No - Prophylaxis VTE Prophylaxis Ordered?: Yes Types of VTE Prophylaxis: TEDS Knee High
--- NOTE | 2022-04-05 08:39 | HMH.PHAINT ---
home medication list verified using list from outpatient pharmacy
--- NOTE | 2022-04-05 08:53 | HMH.HP ---
*Admission Date: 04/05/22 *Chief complaint: Difficulty speaking and swallowing *History of present illness: This 66-year-old white male at the beginning of February was hospitalized with acute viral meningitis. Now, for over the past week, he has had difficulty in speaking and swallowing. He was seen in the office by Dr. Larson and his Seroquel dose was decreased. His states he was taking 400 mg twice a day. He also was started on Benadryl. Despite these measures he has been unable to take his medications and unable to really eat or even drink adequately. He presented in the emergency room at [facility]. The emergency room physician attempted to get him placed for neurologic evaluation at other facilities. He was waitlisted but not admitted. He is admitted at this time for further evaluation and treatment. It is difficult because he is unable to take his medications at this time. He has high blood pressure and has for years. He is also taking duloxetine and allopurinol. His blood pressure medication includes atenolol. He has not been able to take these medications as he is supposed to. There is no other apparent neurologic deficit. In addition to decreasing the Seroquel Dr. Larson increased pramipexole, but to no avail. [facility] History Medical History: Reports:: Anxiety, Cancer, Depression, Diabetes Mellitus Type 2, Gastroesophageal Reflux Disease(GERD), Hiatal Hernia, Hyperlipidemia, Hypertension, Lung Disease Denies:: Diabetes Mellitus Type 1, Internal Pacemaker, MRSA, Palpitations, Seizures *Have you ever received a pneumonia vaccine?: Yes *Have you received a flu vaccine this season?: Yes Other Medical History: Reports: Arthritis, Hypothyroidism. Denies: Blood Transfusion Reaction Laterality Cases: Bilateral: Tonsillectomy Other Surgeries: Yes: Appendectomy, Colonoscopy, Hernia Repair. No: Pacemaker Amputation: No Fractures: Yes (arm bones as a child) - *Social History Last grade of school completed: Advanced degree Smoking Status: Former smoker Tobacco Type: cigarettes # Packs/Day (cigarettes): 1 #Yrs smoked (if former smoker): 20 Smoking End Date: 1986 Alcohol Intake: never Alcohol Intake Frequency:: other Substance Use Type: marijuana *Occupational Status:: retired Housing: house Household Members: spouse *Travel in the last 8 weeks: None - Psychiatric History Pschychiatric History:: Reports:: Anxiety, Depression Family Hx:: No significant family history Review of Systems - Constitutional Reports anorexia, Denies body ache(s), Denies chills - Eyes Denies blurry vision, Denies change in vision, Denies double vision - ENT Reports change in voice, Reports difficulty swallowing, Reports tongue swelling, Denies abnormal hearing, Denies poor balance, Denies dizziness, Denies lip swelling, Denies nasal obstruction, Denies neck lump, Denies neck pain, Denies pain with swallowing, Denies dizziness - *Cardiovascular Denies chest pain, Denies chest pain at rest, Denies shortness of breath, Denies generalized swelling, Denies leg swelling - *Respiratory Denies chest congestion, Denies cough (But can gag when eating) - *Gastrointestinal Reports difficulty swallowing, Denies abdominal pain, Denies constipation, Denies excessive passing of gas, Denies vomiting blood, Denies nausea, Denies pain with swallowing - *Genitourinary Denies difficulty urinating - *Musculoskeletal Denies abnormal walking, Denies decreased muscle mass - Integumentary/Breasts Denies bleeding lesions, Denies dry skin, Denies yellowing of the skin - *Neurologic Reports abnormal speech, Reports other (Difficulty with tongue movement and swallowing ), Denies abnormal hearing, Denies confusion, Denies unsteadiness, Denies dizziness, Denies localized weakness, Denies headache(s), Denies tingling/numbness/burning sensations, Denies tremor(s) - Psychiatric Denies behavioral changes - Endocrine Denies cold intolerance, Denies rapid
--- NOTE | 2022-04-05 09:05 | CT_ITS ---
PROCEDURE INFORMATION: Exam: CT Neck Without Contrast Exam date and time: 04/05/2022 9:43 AM Age: 66 years old Clinical indication: Dysphagia / difficulty swallowing; Additional info: Dysphagia, dysarthria TECHNIQUE: Imaging protocol: Computed tomography of the neck without contrast. Radiation optimization: All CT scans at this facility use at least one of these dose optimization techniques: automated exposure control; mA and/or kV adjustment per patient size (includes targeted exams where dose is matched to clinical indication); or iterative reconstruction. COMPARISON: CT ANGIO NECK 02/18/2022 9:41 AM FINDINGS: Pharynx: Unremarkable. No significant tonsillar enlargement. Larynx: Unremarkable. Epiglottis is normal. Prevertebral and retropharyngeal spaces: Unremarkable. Salivary glands: Normal. Glands are normal in size. Thyroid: Normal. No enlarged or calcified nodules. Lymph nodes: Unremarkable. No lymphadenopathy. Trachea: Visualized trachea is unremarkable. Lungs: Unremarkable as visualized. Bones/joints: Unremarkable. No acute fracture. Soft tissues: Unremarkable. No significant soft tissue swelling. IMPRESSION: No acute findings.
[2022-04-05 09:10] VITALS: BP 133/74; PULSE 79
--- NOTE | 2022-04-05 09:10 | PC.NURSE ---
pt c/o double vision. notified
--- NOTE | 2022-04-05 12:32 | HMH.SLDYSPHA ---
Speech & Language Evaluation Speech/Language Dysphagia Evaluation Start: 04/05/22 12:11 Freq: ONCE Status: Active Protocol: Document 04/05/22 12:11 SAQIB (Rec: 04/05/22 12:32 CWEIGLEIN [id number]) Dysphagia Assess/Goals/Plan Assessment Date of Evaluation: 04/05/22 Evaluation Type Initial Certification Assessment/Problems Oral dysphagia s/p viral meningitis. Does Patient Qualify for Service Yes Qualify/Failure Comment Based on the results of the clinical swallow evaluation, pt would benefit from skilled ST services to address moderate oral dysphagia. Recommendations PHYSICIAN CERTIFICATION: The specified therapy services are required, authorized, and reviewed every 30 days. Pt will be seen # times/week 3 for # weeks 4 Diet Recommendations Mechanical Soft Liquid Type Recommendations Normal/Thin SL Swallow Guidelines Alt bite w/sip thru meal, Standard Aspiration Prec.,Chk mough for pocketing,Eat at slow rate Dysphagia Swallow Precautions/Strategies Sitting Upright (90 deg),Small Bites and Sips,Alternate Liquids/Solids Place Food on Either side of Mouth Plan Anticipate reaching STG in # weeks 2 Anticipate reaching LTG in # weeks 4 Pt/Guardian verbally ack understanding Yes of dx/prognosis/goals Pt/Guardian verbally ack understanding Yes of/consent to tx prog G -code Required No STG-Bolus Form/Tongue Movement Push up with back of tongue against 10 depressor in # trials Push blade of tongue upward against 10 tongue depressor in # trials Push R/L lateral tongue border against 10 tongue depressor in # trials Penitentiary Goals Diet regular with Liquids Thin Liquids Education Instructions provided Diet recommendations and treatment plan discussed with Pt, family, and nursing, all of whom expressed understanding. Pt/Caregiver able to recall information Able to recall/restate Reinforcement needed No Speech & Language HPI History Present Illness Description of Patient Problem Pt is a 66 y.o. male presenting to [facility] with difficulty swallowing s/p viral meningitis. Pt reports symptoms have been present for ~ 1 week and that he is
[2022-04-05 14:44] VITALS: BP 155/91; PULSE 86; RESP 17; TEMP 36.8; O2SAT 93
[2022-04-05 18:00] VITALS: BP 150/84; PULSE 77
[2022-04-05 20:00] VITALS: BP 133/85; PULSE 92; PULSE 93; RESP 17; TEMP 36.8; O2SAT 93
--- NOTE | 2022-04-05 21:30 | PC.NURSE ---
dr mahajan called with pt complaints of unable to sleep and has not had seroquel for few days, one time order fro temazepam 30mg po received repeated and verified.
[2022-04-06 04:00] VITALS: BP 159/97; PULSE 97; RESP 18; TEMP 36.2; O2SAT 94
[2022-04-06 04:49] VITALS: BMI 31.8
--- NOTE | 2022-04-06 05:11 | PC.NURSE ---
pt slept some after temazepam given, pt states he has not had seroquel for few days, pt had difficulty swallowing pill, [facility] has called twice for updates and no beds available at this time, pt alert and oriented, VSS, pt complains of phlegm this morning and clearing throat often, urine len colored, lungs clear, no edema noted, no other issues noted.
[2022-04-06 07:10] LABS: Basophils # 0.1 K/mm3 (0-0.2); Basophils % 0.9 % (0.1-2.0); Eosinophils % 0.3 % (0.1-12.0); Hemoglobin 16.6 g/dL (14.1-18.0); Lymphocytes # 1.9 K/mm3 (0.7-4.5); Mean Corpuscular Hemoglobin 30.5 pg (27.0-31.2); Mean Corpuscular Volume 89.8 fl (80-94); Monocytes # 0.7 K/mm3 (0.1-1.0); Monocytes % 5.9 % (1.7-9.3); Neutrophils # 8.6 K/mm3 (1.8-7.8); Platelet Count 397 K/mm3 (142-424); Red Blood Count 5.45 M/mm3 (4.60-6.20); Red Cell Distribution Width 14.1 % (11.5-17.5); White Blood Count 11.4 K/mm3 (4.8-10.8)
[2022-04-06 07:24] LABS: Chloride 100 mmol/L (98-107); Potassium 4.2 mmoL/L (3.5-5.1); Sodium 137 mmol/L (136-145)
[2022-04-06 07:27] LABS: Anion Gap 14.2 mEq/L (5-15); Blood Urea Nitrogen 12 mg/dl (9-20); Calcium 9.1 mg/dl (8.4-10.2); Carbon Dioxide 27 mmol/L (22.0-30.0); Creatinine Clearance Estimated 109 mL/min (50-200); Estimated Glomerular Filt Rate 134 ml/min (>60); GFR (African American) 162 ML/MIN (>60); Glucose 112 mg/dl (74-100)
[2022-04-06 07:56] VITALS: BP 156/99; PULSE 87; RESP 16; TEMP 36.6; O2SAT 93
[2022-04-06 08:00] VITALS: O2SAT 93
--- NOTE | 2022-04-06 08:29 | PC.NURSE ---
Called [facility] to give report. secretary specialist asked to call back in a few minutes as bed had not been assigned to nurse yet.
--- NOTE | 2022-04-06 08:35 | P.PN_ITS ---
Internal Medicine - PN: Subj *Date: 04/06/22 *Time: 08:35 Interval history: Patient had a horrible night. He has had minimal sleep for the last few nights. He is having difficulty with secretions due to swallowing difficulties. He denies headache. Vision comes and goes. He has been unable to take his Flomax and therefore he has to strain to void. He denies chest pain or shortness of breath. He ambulates without difficulty. His states that after receiving the steroids yesterday he was immediately better after about an hour. Nurses state a bed is available at [place] and he is ready for transfer. Exam Vital signs and Labs for Last 24 Hours: Temp Pulse Resp BP Pulse Ox 97.8 F 87 16 156/99 H 93 L 04/06/22 07:56 04/06/22 07:56 04/06/22 07:56 04/06/22 07:56 04/06/22 07:56 Laboratory Results - last 24 hr 04/06/22 06:40: WBC 11.4 H D, RBC 5.45, Hgb 16.6, Hct 49.0, MCV 89.8, MCH 30.5, MCHC 34.0, RDW 14.1, Plt Count 397, MPV 8.0, Neut % (Auto) 76.0, Lymph % (Auto) 17.0, [place] % (Auto) 5.9, Eos % (Auto) 0.3, Baso % (Auto) 0.9, Neut # (Auto) 8.6 H, Lymph # (Auto) 1.9, [place] # (Auto) 0.7, Eos # (Auto) 0.0, Baso # (Auto) 0.1 04/06/22 06:40: Sodium 137, Potassium 4.2 D, Chloride 100, Carbon Dioxide 27, Anion Gap 14.2, BUN 12, Creatinine 0.60 L D, Estimated Creat Clear 109, Estimate d GFR 134, Est GFR ( Amer) 162 D, Glucose 112 H, Calcium 9.1 I & O for Last 24 hours: Intake & Output 04/03/22 04/04/22 04/05/22 04/06/22 11:59 11:59 11:59 11:59 Intake Total 1999 1382 / 1382 Output Total 2300 / 2300 Balance 1999 -918 / -918 Weight 244 lb 240 lb 8.001 oz 240 lb 8.001 oz - Constitutional no acute distress - *Routine Respiratory Exam Present: CTA bilaterally (Anteriorly and posteriorly) - *Routine Cardiovascular Exam Present: RRR - *Routine Abdominal Exam Present: soft, normoactive bowel sounds. Absent: tenderness - *Routine Extremities Exam Absent: edema - *Routine Neurological Exam Present: alert, oriented X3. Absent: normal speech (Slurring of words) Assessment and Plan (1) Dysphagia Status: Acute Qualifiers: Dysphagia type: unspecified Qualified Code(s): R13.10 - Dysphagia, unspecified Category: Medical Code(s): R13.10 - Dysphagia, unspecified (2) Dysarthria Status: Acute Category: Medical Code(s): R47.1 - Dysarthria and anarthria (3) Disorders of hypoglossal nerve Status: Acute Category: Medical Code(s): G52.3 - Disorders of hypoglossal nerve (4) Hypertension Status: Acute Category: Medical Code(s): I10 - Essential (primary) hypertension (5) Depression Status: Chronic Category: Medical Code(s): F32.A - Depression, unspecified (6) Hypothyroidism Status: Chronic Category: Medical Code(s): E03.9 - Hypothyroidism, unspecified (7) Type 2 diabetes mellitus Status: Chronic Category: Medical Code(s): E11.9 - Type 2 diabetes mellitus without complications - Assessment and plan all Dx Assessment and Plan for all problems:: According to nursing staff bed is available at [facility] for transfer. We will transfer after seen by Dr. Tovar.
--- NOTE | 2022-04-06 09:05 | PC.NURSE ---
Gave report to Gisel at [facility]. Will call ambulance
--- NOTE | 2022-04-06 09:20 | PC.NURSE ---
Called [facility]. EMS stated it would be 2-3 hours before transfer as their is a patient ahead.
--- NOTE | 2022-04-08 23:54 | HMH.DCSUM ---
General - General Admission date:: 04/04/22 Discharge date: 04/06/22 HPI HPI: This 66-year-old white male at the beginning of February was hospitalized with acute viral meningitis. Now, for over the past week, he has had difficulty in speaking and swallowing. He was seen in the office by Dr. Larson and his Seroquel dose was decreased. His states he was taking 400 mg twice a day. He also was started on Benadryl. Despite these measures he has been unable to take his medications and unable to really eat or even drink adequately. He presented in the emergency room at [facility]. The emergency room physician attempted to get him placed for neurologic evaluation at other facilities. He was waitlisted but not admitted. He is admitted at this time for further evaluation and treatment. It is difficult because he is unable to take his medications at this time. He has high blood pressure and has for years. He is also taking duloxetine and allopurinol. His blood pressure medication includes atenolol. He has not been able to take these medications as he is supposed to. There is no other apparent neurologic deficit. In addition to decreasing the Seroquel Dr. Larson increased pramipexole, but to no avail. Hospital Course Hospital Course: The patient was admitted and IV metoclopramide was ordered. Dr. Tovar felt his problem was at the oropharyngeal level and not esophageal. He was on high doses of Seroquel, so there could have been some relationship to this. Dr. Tovar did feel that most likely the patient's symptoms were related to his recent meningitis. He felt it would be nice to initiate Cogentin, however the patient could not swallow effectively. A clonidine patch was ordered for blood pressure control and his metoclopramide was discontinued. Immediately after the dictation of the patient's history and physical, he began complaining of some double vision. Solu-Medrol was added as well. A CT of the neck was ordered. The patient was seen by speech therapy and they recommended a mechanical soft diet. His soft tissue neck CT showed nothing acute. 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 By 04/06/2022, he had a horrible night. He was unable to sleep and had difficulty with secretions due to swallowing difficulties. He did relate that after taking the steroids, he felt immediately better for about an hour. A bed became available for the patient at [place] and he was ready to be transferred. Objective Vital signs: Temp Pulse Resp BP Pulse Ox 97.8 F 87 16 156/99 H 93 L 04/06/22 07:56 04/06/22 07:56 04/06/22 07:56 04/06/22 07:56 04/06/22 08:00 Narrative: - Constitutional no acute distress - *Routine HEENT Exam Head: Present: normocephalic Eye: Present: EOMI, PERRL ENT: Present: mucous membranes moist. Absent: dentition normal - *Routine Neck Exam Present: supple. Absent: lymphadenopathy - *Routine Respiratory Exam Present: decreased breath sounds, CTA bilaterally - *Routine Cardiovascular Exam Present: irregular rhythm - *Routine Abdominal Exam Present: soft. Absent: tenderness, organomegaly - *Routine Rectal Exam Rectal:: deferred - *Routine Genitalia Exam Genitalia:: normal male - *Routine Extremities Exam Absent: cyanosis, clubbing, edema - *Routine Skin Exam Present: warm. Absent: rash - *Routine Neurological Exam Present: alert, oriented X3 DS: Diagnosis - Discharge Diagnosis (1) Dysphagia Status: Acute (2) Dysarthria Status: Acute (3) Disorders of hypoglossal nerve Status: Acute (4) Hypertension Status: Acute (5) Depression Status: Chronic (6) Hypothyroidism Status: Chronic (7) Type 2 diabetes mellitus Status: Chronic Discharge Plan - Patient Discharge Instructions ACTIVITY: Continue current activity DIET: continue same diet Patient Instru
== END 2022-04-06 14:30 | disposition short-term general hospital (02) ==
LOC: UTC 09:47 → ER 10:26 → 2ND 19:35
PROVIDERS: Emergency Medicine; Admitting Provider Family Medicine; Emergency Provider Nurse Practitioner Family; PCP Family Medicine; Visit Provider Family Medicine
DX: G93.40 Encephalopathy, unspecified (principal); R13.10 Dysphagia, unspecified; I10 Essential (primary) hypertension; J44.9 Chronic obstructive pulmonary disease, unspecified; E03.9 Hypothyroidism, unspecified; K21.9 Gastro-esophageal reflux disease without esophagitis; Z87.891 Personal history of nicotine dependence; E11.9 Type 2 diabetes mellitus without complications; Z79.84 Long term (current) use of oral hypoglycemic drugs; Z79.899 Other long term (current) drug therapy; G52.3 Disorders of hypoglossal nerve; Z20.822 Contact with and (suspected) exposure to COVID-19
CPT/HCPCS: G0378; 70450; 70490; 80048; 80053; 85025; 85651; 86140; 92610; 99291; C9803; J2405; U0003; U0005

== ENCOUNTER 2022-07-09 09:05 | Emergency (ER) | payer MEDICARE, SELFPAY ==
[2022-07-09 09:20] VITALS: BP 124/79; PULSE 62; RESP 17; O2SAT 96; BMI 26.4
--- NOTE | 2022-07-09 09:25 | XR_ITS ---
FINAL REPORT CLINICAL HISTORY: laceration to 4th and 5th digit FINDINGS: 3 views of the left hand were obtained. There is no acute fracture or dislocation. There are hypertrophic changes of osteoarthritis involving the distal and proximal interphalangeal joints. Findings are most evident at the 2nd and 3rd distal interphalangeal joints and 2nd proximal interphalangeal joint. There are soft tissue calcifications adjacent to the 3rd middle phalanx. There is no radiopaque foreign body. IMPRESSION: No acute fracture or foreign body. Reviewed, Interpreted and Dictated by Sherif Chavis MD Transcribed by Agapito Patel Authenticated and [facility]
--- NOTE | 2022-07-09 09:25 | EXP.UTC ---
Discharge Plan Disposition Patient Disposition: Home, Self-Care Condition: Good Prescriptions Prescriptions: New cephalexin 500 mg capsule 500 mg PO Q8 21 Days Qty: 63 0RF No Action pramipexole 0.25 mg tablet 0.25 mg PO DAILY allopurinol 300 mg tablet 300 mg PO DAILY fenofibrate nanocrystallized 145 mg tablet 145 mg PO DAILY levothyroxine 50 mcg capsule 50 mcg PO DAILY potassium chloride 20 mEq packet 20 meq PO BID omeprazole 20 mg capsule,delayed release(DR/EC) 20 mg PO DAILY atenolol 100 mg tablet 100 mg PO DAILY duloxetine 60 mg capsule,delayed release(DR/EC) 120 mg PO DAILY quetiapine 100 mg tablet 100 mg PO BID mycophenolate mofetil 500 mg tablet 500 mg PO BID prednisone 50 mg tablet 50 mg PO DAILY pyridostigmine bromide 60 mg tablet 80 mg PO BID Referrals Follow up/Referrals: Mumtaz Larson MD [Primary Care Provider] - See instructions Activity Restrictions/Add. Instructions Additional Instructions/Restrictions: discuss with Neurology before taking antibitotics Suture instructions: ?You have required stitches today. Please read the following instructions so you know how to care for them: ?1. Keep wound area dry for the first 24 hours. 2?? May clean gently with mild soap and water, after 48 hours to prevent crusting over suture knots. 3. You may shower if your provider gives permission but do not take a bath until the skin is healed.. 4. Never leave a wet dressing or Band-Aid on your stitches as this allows bacteria to reach the area and may cause infection. Band-aids can cause the wound to sweat and not recommended to wear for long periods of time Watch for signs of infection: ? Increasing redness, tenderness or warmth around the suture site ? Unusual swelling around the site ? Appearance of pus around each suture or any red streaks ? Fever If you develop any of the above signs or symptoms of infection, Follow up with Family Physician immediately 5. Suture removal in _12-14___days 6. Return to [facility] or follow up with family doctor for removal. This can be done by any medical provider dur?ing regular hours on Wednesday through Wednesday, by appointment. Clinical Impressions Clinical Impression: Laceration Instructions Patient Instructions: DI for Laceration Repair Discharge ED Provider: Helen Ann [facility] [place] H[place] General Stated complaint: [id number] cut to left pinkie finger,home Mode of Arrival: Ambulatory Source of Information: Patient Limitations: No Limitations Time Seen by Provider: 07/09/22 09:25 Description of Symptoms (Recalled from Triage Doc. by RN): Laceration to left pinky and ring finger that happened this am with a cross bow. States his TDAP is not UTD. HEENT Symptoms (Recalled from RN notes): No Resp Symptoms (Recalled from RN notes): No Skin Symptoms (Recalled from RN notes): Yes MS Symptoms (Recalled from RN notes): No Functional Status (Recalled from RN notes): na History of Present Illness Provider Complaint: Patient states that he was using a crank thing on cross bow when it broke and got his left hand States that he looked down and noticed he had laceration on his left little finger and small laceration on his ring finger so he came in to get it checked out Related Data Home Medications Medication Instructions Recorded Confirmed allopurinol 300 mg tablet 300 mg PO DAILY 05/20/22 05/20/22 atenolol 100 mg tablet 100 mg PO DAILY 05/20/22 05/20/22 duloxetine 60 mg capsule,delayed 120 mg PO DAILY 05/20/22 05/20/22 release fenofibrate nanocrystallized 145 145 mg PO DAILY 05/20/22 05/20/22 mg tablet levothyroxine 50 mcg capsule 50 mcg PO DAILY 05/20/22 05/20/22 mycophenolate mofetil 500 mg tablet 500 mg PO BID 05/20/22 05/20/22 omeprazole 20 mg capsule,delayed 20 mg PO DAILY 05/20/22 05/20/22 release potassium chloride 20 mEq oral 20 meq PO BID 05/20/22 05/20/22 packet pramipexole 0.
[2022-07-09 10:21] VITALS: BP 124/79; PULSE 62; RESP 17; TEMP 36.8; O2SAT 96
== END 2022-07-09 11:35 | disposition home or self-care (01) ==
PROVIDERS: Emergency Provider Nurse Practitioner; PCP Family Medicine
DX: S61.217A Laceration without foreign body of left little finger without damage to nail, initial encounter (principal); S61.215A Laceration without foreign body of left ring finger without damage to nail, initial encounter; W21.89XA Striking against or struck by other sports equipment, initial encounter; Z23 Encounter for immunization
CPT/HCPCS: 12004; 73130; 90471; 90715; 99213; G0463

== ENCOUNTER 2022-08-30 13:31 | Emergency (ER) | payer MEDICARE, SELFPAY ==
[2022-08-30 14:09] VITALS: BP 109/68; PULSE 76; RESP 17; TEMP 37.7; O2SAT 99; BMI 27.4
[2022-08-30 15:30] VITALS: BP 109/68; PULSE 76; RESP 17; TEMP 37.7; O2SAT 99; BMI 27.6
--- NOTE | 2022-08-30 15:59 | EXP.UTC ---
Discharge Plan Disposition Patient Disposition: Home, Self-Care Condition: Good Prescriptions Prescriptions: New amoxicillin [amoxicillin] 500 mg tablet 500 mg PO BID 10 Days Qty: 20 0RF No Action pramipexole 0.25 mg tablet 0.25 mg PO DAILY allopurinol 300 mg tablet 300 mg PO DAILY fenofibrate nanocrystallized 145 mg tablet 145 mg PO DAILY levothyroxine 50 mcg capsule 50 mcg PO DAILY potassium chloride 20 mEq packet 20 meq PO BID omeprazole 20 mg capsule,delayed release(DR/EC) 20 mg PO DAILY atenolol 100 mg tablet 100 mg PO DAILY duloxetine 60 mg capsule,delayed release(DR/EC) 120 mg PO DAILY quetiapine 100 mg tablet 100 mg PO BID mycophenolate mofetil 500 mg tablet 500 mg PO BID prednisone 50 mg tablet 50 mg PO DAILY pyridostigmine bromide 60 mg tablet 80 mg PO BID cephalexin 500 mg capsule 500 mg PO Q8 21 Days Qty: 63 0RF Referrals Follow up/Referrals: Mumtaz Larson MD [Primary Care Provider] - See instructions Activity Restrictions/Add. Instructions Additional Instructions/Restrictions: antibiotics as ordered follow up with pcp pt states he can take amoxicillin Clinical Impressions Clinical Impression: Bursitis of elbow Instructions Patient Instructions: DI for Elbow Bursitis Discharge ED Provider: Hermila ([facility] [place] General Stated complaint: RT elbow pain no accident, surpressed immune syst Mode of Arrival: Ambulatory Source of Information: Patient Limitations: No Limitations Time Seen by Provider: 08/30/22 15:59 Description of Symptoms (Recalled from Triage Doc. by RN): PATIENT C/O REDNESS AND WARMTH TO RIGHT ELBOW. HE REPORTS A HISTORY OF BURSITIS AND IS REQUESTING HIS ELBOW BE DRAINED AND AN ANTIBIOTIC HEENT Symptoms (Recalled from RN notes): No Resp Symptoms (Recalled from RN notes): No Skin Symptoms (Recalled from RN notes): No MS Symptoms (Recalled from RN notes): Yes Functional Status (Recalled from RN notes): WNL History of Present Illness Provider Complaint: 66 yr old male presents for rt elbow swelling and redness. requesting drain and antibiotic Related Data Home Medications Medication Instructions Recorded Confirmed allopurinol 300 mg tablet 300 mg PO DAILY 05/20/22 05/20/22 atenolol 100 mg tablet 100 mg PO DAILY 05/20/22 05/20/22 duloxetine 60 mg capsule,delayed 120 mg PO DAILY 05/20/22 05/20/22 release fenofibrate nanocrystallized 145 145 mg PO DAILY 05/20/22 05/20/22 mg tablet levothyroxine 50 mcg capsule 50 mcg PO DAILY 05/20/22 05/20/22 mycophenolate mofetil 500 mg tablet 500 mg PO BID 05/20/22 05/20/22 omeprazole 20 mg capsule,delayed 20 mg PO DAILY 05/20/22 05/20/22 release potassium chloride 20 mEq oral 20 meq PO BID 05/20/22 05/20/22 packet pramipexole 0.25 mg tablet 0.25 mg PO DAILY 05/20/22 05/20/22 prednisone 50 mg tablet 50 mg PO DAILY 05/20/22 05/20/22 pyridostigmine bromide 60 mg tablet 80 mg PO BID 05/20/22 05/20/22 quetiapine 100 mg tablet 100 mg PO BID 05/20/22 05/20/22 Previous Rx's Medication Instructions Recorded cephalexin 500 mg capsule 500 mg PO Q8 21 days #63 caps 07/09/22 amoxicillin 500 mg tablet 500 mg PO BID 10 days #20 tabs 08/30/22 Allergies Allergy/AdvReac Type Severity Reaction Status Date / Time No Known Allergies Allergy Verified 03/03/22 10:03 Worker's Comp Is this a Worker's Comp case?: No PFSH PFSH Social History , [employer]) Smoking Status: Former smoker pack-years: 20 second hand exposure: No alcohol intake: never substance use type: marijuana current occupational status: retired Travel in the last 8 weeks: None household members: spouse housing: house caffeine: Yes ROS Obtained: Yes All systems reviewed & no additional complaints except as documented Constitutional Constitutional: Reports system reviewed and no additional
[2022-08-30 16:04] VITALS: BP 109/68; PULSE 76; RESP 17; TEMP 37.7; O2SAT 99
== END 2022-08-30 16:13 | disposition home or self-care (01) ==
PROVIDERS: Emergency Provider Nurse Practitioner Family; PCP Family Medicine
DX: M71.521 Other bursitis, not elsewhere classified, right elbow (principal)
CPT/HCPCS: 99212; G0463

== ENCOUNTER → 2022-11-11 09:18 | Outpatient (CLI) | payer MEDICARE, SELFPAY ==
--- NOTE | 2022-11-11 09:22 | US_ITS ---
FINAL REPORT TECHNIQUE: Multiple transverse and longitudinal images CLINICAL HISTORY: CALCULUS OF GALLBLADDER FINDINGS: There is echogenic shadowing complex in the region of the gallbladder fossa, favor stone filled gallbladder over bowel gas artifact although not definitive. No biliary ductal dilatation is appreciated. No fluid collections are seen. Limited portions of the right liver are unremarkable. Limited portions of the right kidney are unremarkable. IMPRESSION: 1. Possible stone filled gallbladder accounting for the shadowing, bowel gas artifact is less likely. If definitive diagnosis is needed, consider MRI. 2. No evidence of biliary obstruction Reviewed, Interpreted and Dictated by Raf Llamas MD Transcribed by Mary Bustillo Authenticated and [facility]
== END ==
PROVIDERS: PCP Family Medicine; Visit Provider Family Medicine
DX: K80.20 Calculus of gallbladder without cholecystitis without obstruction (principal)
CPT/HCPCS: 76705

== ENCOUNTER → 2022-11-18 08:01 | Outpatient (CLI) | payer MEDICARE, SELFPAY | END | disposition home or self-care (01) | PROVIDERS: PCP Family Medicine; Visit Provider Surgery | DX: R10.11 Right upper quadrant pain (principal) ==

== ENCOUNTER → 2022-12-08 10:48 | Outpatient (CLI) | payer MEDICARE, SELFPAY ==
[2022-12-08 11:01] LABS: Campylobacter Not Detected (NotDetected); Clostridium Difficile A/B, PCR Not Detected (NotDetected); Cryptosporidium Not Detected (NotDetected); Cyclospora Cayetanesis Not Detected (NotDetected); Entamoeba histolytica Not Detected (NotDetected); Enteroaggregative E coli Not Detected (NotDetected); Enteropathogenic E coli Not Detected (NotDetected); Enterotoxigenic E coli Not Detected (NotDetected); Giardia lamblia Not Detected (NotDetected); Plesimonas Shigalloides, PCR Not Detected (NotDetected); Salmonella, PCR Not Detected (NotDetected); Shiga-like toxin E coli Not Detected (NotDetected); Shigella Enterovasive E coli Not Detected (NotDetected); Vibrio Cholerae Not Detected (NotDetected); Vibrio, PCR Not Detected (NotDetected); Yersinia Entercolitica, PCR Not Detected (NotDetected)
[2022-12-08 11:02] LABS: Adenovirus F 40/41, stool Not Detected (NotDetected); Astrovirus Not Detected (NotDetected); Norovirus Not Detected (NotDetected); Rotavirus A Not Detected (NotDetected); Sapovirus Not Detected (NotDetected)
== END ==
PROVIDERS: PCP Family Medicine; Visit Provider Nurse Practitioner Family
DX: R19.7 Diarrhea, unspecified (principal); R11.0 Nausea; K52.89 Other specified noninfective gastroenteritis and colitis; K22.70 Barrett's esophagus without dysplasia
CPT/HCPCS: 87506

== ENCOUNTER → 2023-01-18 09:46 | Outpatient (CLI) | payer MEDICARE, SELFPAY ==
--- NOTE | 2023-01-18 09:51 | NM_ITS ---
FINAL REPORT TECHNIQUE: 0.50 Millicuries of technetium 99m sulfur colloid was ingested with eggs, toast and water. CLINICAL HISTORY: NAUSEA FINDINGS: GASTRIC EMPTYING SCAN Static images show normal emptying of the stomach into the small bowel. Based on the time activity curve, the estimated half-emptying time is 107 minutes. IMPRESSION: Abnormally delayed gastric emptying study. Reviewed, Interpreted and Dictated by Sherif Chavis MD Transcribed by Agapito Patel Authenticated and [facility]
== END ==
PROVIDERS: PCP Family Medicine; Visit Provider Internal Medicine Gastroenterology
DX: R11.0 Nausea (principal)
CPT/HCPCS: 78264; A9541

== ENCOUNTER → 2023-05-06 08:43 | Outpatient (POV) | payer MEDICARE, SELFPAY | PROVIDERS: Visit Provider Specialist/Technologist | DX: Z00.00 Encounter for general adult medical examination without abnormal findings (principal) ==

== ENCOUNTER → 2023-06-15 09:32 | Outpatient (CLI) | payer MEDICARE, SELFPAY ==
[2023-06-15 10:08] LABS: Basophils % 0.3 % (0.1-2.0); Eosinophils % 0.5 % (0.1-12.0); Hematocrit 40.7 % (42.0-52.0); Hemoglobin 13.1 g/dL (14.1-18.0); Lymphocytes # 0.9 K/mm3 (0.7-4.5); Lymphocytes % 13.2 % (10-50); Mean Corpuscular HGB Conc 32.1 g/dL (31.8-35.4); Mean Corpuscular Hemoglobin 28.6 pg (27.0-31.2); Mean Platelet Volume 7.9 fl (7.4-10.4); Monocytes # 0.3 K/mm3 (0.1-1.0); Monocytes % 4.9 % (1.7-9.3); Neutrophils # 5.6 K/mm3 (1.8-7.8); Neutrophils % 81.1 % (37.0-80.0); Platelet Count 430 K/mm3 (142-424); Red Blood Count 4.57 M/mm3 (4.60-6.20); White Blood Count 6.9 K/mm3 (4.8-10.8)
[2023-06-15 10:45] LABS: Alanine Aminotransferase 17 U/L (12-78); Albumin Level 3.2 g/dl (3.5-5.0); Albumin/Globulin Ratio 1.5 (1.1-1.8); Alkaline Phosphatase 96 U/L (38-126); Anion Gap 12.5 mEq/L (5-15); Aspartate Amino Transferase 18 U/L (17-59); Bilirubin,Total 0.2 mg/dl (0.2-1.3); Blood Urea Nitrogen 10 mg/dl (9-20); Calcium 8.7 mg/dl (8.4-10.2); Carbon Dioxide 30 mmol/L (22.0-30.0); Chloride 101 mmol/L (98-107); Estimated Glomerular Filt Rate 134 ml/min (>60); GFR (African American) 162 ML/MIN (>60); Globulin 2.1 g/dL (1.3-3.2); Glucose 99 mg/dl (74-100); Lipase 171 U/L (23-300); Potassium 4.5 mmoL/L (3.5-5.1); Sodium 139 mmol/L (136-145); Total Protein,Serum 5.3 g/dl (6.3-8.2)
== END ==
PROVIDERS: PCP Family Medicine; Visit Provider Surgery
DX: K80.20 Calculus of gallbladder without cholecystitis without obstruction (principal); G93.40 Encephalopathy, unspecified
CPT/HCPCS: 36415; 80053; 83690; 85025

== ENCOUNTER 2023-06-28 08:34 | Day surgery (SDC) | payer MEDICARE, SELFPAY ==
[2023-06-23 15:46] VITALS: BMI 243.7
[2023-06-28] VITALS (13 sets, daily range): BP systolic 112–173; BP diastolic 72–109; PULSE 58–99; RESP 16–26; TEMP 36.1–43; O2SAT 95–98
[2023-06-28 09:16] LABS: POC Glucose,Bedside 78 (70-110)
[2023-06-28 09:29] LABS: Amylase 56 U/L (30-110)
--- NOTE | 2023-06-28 10:14 | P.PNANES_ITS ---
[facility] Disclaimer: The information contained in this section may have been updated after the patient was seen, as this information can be updated by other users. Medical History GERD (gastroesophageal reflux disease) History of myasthenia gravis Hyperlipemia Hypertension Hypothyroidism Type 2 diabetes mellitus Surgical History History of appendectomy History of arthroscopy of left knee History of colonoscopy History of umbilical hernia repair Family History Other No significant family history Social History Smoking Status: Former smoker pack-years: 20 second hand exposure: No alcohol intake: never substance use type: marijuana current occupational status: retired Travel in the last 8 weeks: None household members: spouse housing: house caffeine: Yes [facility] Anesthesia Checklist Patient Identification Patient Identification: Verbal (Name & ) Structural Data Admitted From: Home Planned Operative Procedure/s: lap saw Consent for Planned Operative Procedure(s) Verified: Yes NPO Status Verified Time NPO: 00:00 Additional verifications Anesthesia Reactions: No Hx Blood Transfusions: No Blood Transfusion Reaction: No Airway Assessment Mallampati Score:: Class II C-Spine Mobility Assessed: Yes TMJ Mobility Assessed: Yes Dentition: Good Dentition Neurological Assessment Level of Consciousness: Awake, Alert and Appropriate Anesthesia Plan Anesthesia Risk discussed: Yes Anesthesia Plan: Verified ASA Class: III Anesthesia Type: General
--- NOTE | 2023-06-28 13:05 | EXP.ANES.CKL ---
[facility] Disclaimer: The information contained in this section may have been updated after the patient was seen, as this information can be updated by other users. Medical History GERD (gastroesophageal reflux disease) History of myasthenia gravis Hyperlipemia Hypertension Hypothyroidism Type 2 diabetes mellitus Surgical History History of appendectomy History of arthroscopy of left knee History of colonoscopy History of umbilical hernia repair Family History Other No significant family history Social History Smoking Status: Former smoker pack-years: 20 second hand exposure: No alcohol intake: never substance use type: marijuana current occupational status: retired Travel in the last 8 weeks: None household members: spouse housing: house caffeine: Yes [facility] Anesthesia Checklist Patient Identification Patient Identification: Verbal (Name & ) Structural Data Admitted From: Home Planned Operative Procedure/s: lap saw Consent for Planned Operative Procedure(s) Verified: Yes NPO Status Verified Time NPO: 00:00 Additional verifications Anesthesia Reactions: No Hx Blood Transfusions: No Blood Transfusion Reaction: No Airway Assessment Mallampati Score:: Class I C-Spine Mobility Assessed: Yes TMJ Mobility Assessed: Yes Dentition: Good Dentition Neurological Assessment Level of Consciousness: Awake, Alert and Appropriate Anesthesia Plan Anesthesia Risk discussed: Yes Anesthesia Plan: Verified ASA Class: III Anesthesia Type: General
--- NOTE | 2023-06-28 14:20 | P.OP_ITS ---
Date of procedure: 06/28/23 Pre-op Diagnosis:: Symptomatic gallstones Post-op Diagnosis:: acute and chronic calculus cholecystitis Procedure performed:: laparoscopic cholecystectomy Surgeon:: Oli Hurley MD Anesthesia: SOLE Estimated blood loss (mL): 50 Operative findings:: it was severe inflammatory response around the gallbladder. It was completely obscured with omental adhesions. There is evidence of hydrops of the gallbladder and purulent bile. Delineation of the anatomy was somewhat difficult due to the severe inflammatory response. Operative note:: Consent was obtained patient was taken to the operating room. He was p ositioned in a supine position. General anesthesia was induced via endotracheal tube. Abdomen was prepped and draped in the standard surgical fashion. Since he had previous PEG tube placement and previous umbilical hernia repair abdominal entry was performed through left subcostal 5 mm incision with insertion of optical trocar under laparoscopic visualization. CO2 pneumoperitoneum was achieved to 15 mmHg. Laparoscopic surveillance was carried out. Adhesions from previous PEG tube were noted and avoided. There were some omental adhesions near the umbilicus superiorly where he had previous open umbilical hernia repair without mesh. Incision was made at the site and 11 mm trocar was inserted adjacent to the omental adhesions. Patient was positioned in reverse Trendelenburg and left side down. A couple of 5 mm trocars were inserted in the right upper abdomen. 11 mm trocar was inserted in the epigastrium. Initially gallbladder could not be identified. There was a firm inflammatory mass at the region of the gallbladder completely obscured with omental adhesions. These were taken down carefully using ANDRES ultrasonic harmonic arutro. There was concern initially that there could be adherent colon but this was all merely gallbladder. Very prolonged dissection was carried out ultimately identifying the body of the gallbladder at the fundus. This was grasped retracted anteriorly. There was some unavoidable spillage of bile contents from the gallbladder which was clear mucousy initially consistent with hydropic gallbladder. This then became purulent appearing and was suctioned free immediately. Very prolonged dissection was carried out down to the neck of the gallbladder where there was significant acute on chronic inflammatory process. It appeared as though the cystic duct and cystic artery were adherent to 1 another. This was isolated, multiply clipped, and sharply divided. Gallbladder was then partially dissected free from the gallbladder in a retrograde fashion using ANDRES ultrasonic harmonic arturo. Remainder of the gallbladder dissection process was carried out with laparoscopic electrocautery due to the intense inflammatory process. Ultimately the gallbladder was placed within an Endo Catch retrieval device and removed from the peritoneal cavity via the umbilical trocar site which required extension of the fascial incision for delivery. Gallbladder fossa was then inspected. Hemostasis was achieved with liberal use of electrocautery. There was good hemostasis. Thorough irrigation and suctioning was performed until clear. Trocars were then removed as CO2 pneumoperitoneum was evacuated. Fascia at the umbilicus was closed with multiple interrupted 0 Ethibond sutures. Local anesthetic was infiltrated. Skin incisions were closed with 4-0 Monocryl in a subcuticular fashion. Dermabond and clean dry sterile dressings were applied. Condition: stable Disposition: PACU Complications:: None immediately apparent
--- NOTE | 2023-06-28 14:38 | P.PNANES_ITS ---
[facility] Anesthesia Record Part I Anesthesia Record I Intake, IV Amount: 1,000 Hydration: Adequate Estimated blood loss (mL): 10 Urine output (mL): 0 Blood Products used (#): none Blood Pressure: 160/107 SaO2: 95 Pulse Rate: 99 Airway Patency: Patent Respiratory Rate: 26 Temperature: 98.3 F Patient is:: Drowsy and Stable Stable to PACU at:: 14:20
[2023-06-28 14:45] LABS: POC Glucose,Bedside 129 (70-110)
--- NOTE | 2023-06-28 15:06 | SUR.PHASEI ---
1430 - V/O per Joel Pinedo CRNA to give 4 mg Zofran IV and 6.25 mg Phenergan IVPB x 1 now for nausea. Order RB+V. Orders carried out and admin. No relief noted. 1449 - V/O per Harleen Lemon CRNA to given an additional 6.25 mg IVPB Phenergan x 1. Pt continues to dry heave and intermittently vomit bile. Anesthesia aware. Order for 12.5 IV Benadryl to be admin. RB+V.
--- NOTE | 2023-06-28 16:27 | P.PNANES_ITS ---
[facility] Anesthesia Record Part II Anesthesia Record Part II Discharge Time: 15:10 Destination: Surgical Day Care (OP Surgery) PACU nurse assessment reviewed?: Yes Patient Condition:: Good Anesthesia Complications:: None Swallowing reflex intact?: Yes Airway Patency: Patent Cyanosis?: No Blood Pressure: 159/93 SaO2: 96 Respiratory Rate: 16 Pulse Rate: 86 Temperature: 97 F Mental Status: Alert & Oriented Pain level:: 0 Nausea and/or vomitting:: Nauseated and Vomiting Intake, IV Amount: 0 Hydration: Adequate
== END 2023-06-28 16:00 | disposition home or self-care (01) ==
PROVIDERS: PCP Family Medicine; Visit Provider Surgery
PROC: 0FT44ZZ Resection of Gallbladder, Percutaneous Endoscopic Approach (ICD-10-PCS; CPT 47562; principal; 2023-06-28 11:00)
DX: K80.12 Calculus of gallbladder with acute and chronic cholecystitis without obstruction (principal); E11.9 Type 2 diabetes mellitus without complications
CPT/HCPCS: 47562; 82150; 82962; 88304; 96374; J2405

== ENCOUNTER 2024-04-09 10:12 | Emergency (ER) | payer MEDICARE, SELFPAY ==
[2024-04-09] VITALS (8 sets, daily range): BP systolic 124–175; BP diastolic 65–99; PULSE 63–114; RESP 13–18; TEMP 36.7; O2SAT 97–99; BMI 27.7
--- NOTE | 2024-04-09 10:30 | CT_ITS ---
PROCEDURE INFORMATION: Exam: CT Abdomen And Pelvis With Contrast Exam date and time: 04/09/2024 12:25 PM Age: 68 years old Clinical indication: Vomiting; Additional info: Intractable vomiting epigastric pain TECHNIQUE: Imaging protocol: Computed tomography of the abdomen and pelvis with contrast. Radiation optimization: All CT scans at this facility use at least one of these dose optimization techniques: automated exposure control; mA and/or kV adjustment per patient size (includes targeted exams where dose is matched to clinical indication); or iterative reconstruction. Contrast material: ISOVUE; Contrast volume: 75 ml; Contrast route: IV; COMPARISON: CR XR HIP LT 2-3V W/PELVIS 08/18/2019 9:26 AM FINDINGS: Heart: Moderate pericardial effusion measures 2.5 cm. Liver: Normal. No mass. Gallbladder and biliary ducts: Previous cholecystectomy. Pancreas: Normal. No ductal dilation. Spleen: Normal. No splenomegaly. Adrenal glands: Normal. No mass. Kidneys and ureters: Punctate nonobstructing left renal calculus. Complex mass in the midpole right kidney measures 2.5 x 2.9 cm. Additional workup necessary with ultrasound and MRI to exclude neoplasm. Simple cortical renal cysts bilaterally. No hydronephrosis. Stomach and bowel: Gastric mucosal thickening, nonspecific gastritis. Negative for bowel obstruction. Colonic diverticulosis without CT evidence of diverticulitis. Appendix: No evidence of appendicitis. Intraperitoneal space: Unremarkable. No free air. No significant fluid collection. Vasculature: Unremarkable. No abdominal aortic aneurysm. Lymph nodes: Unremarkable. No enlarged lymph nodes. Urinary bladder: Unremarkable as visualized. Reproductive: Radiotherapy seeds in the prostate gland. Bones/joints: Surgical changes lower lumbar spine. Soft tissues: Unremarkable. IMPRESSION: 1. Gastric mucosal thickening, nonspecific gastritis. 2. Complex mass in the midpole right kidney measures 2.5 x 2.9 cm. Additional workup necessary with ultrasound and MRI to exclude neoplasm. 3. Moderate pericardial effusion measures 2.5 cm. COMMENTS: Consistent with the [employer]'s Incidental Findings Committee white paper (J Am Juan Pablo Radiol 2018): Any incidental renal lesion less than 1 cm or classified as too small to characterize, or any incidental cystic renal lesion characterized as simple-appearing, is likely benign. No follow-up imaging is recommended for these lesions per consensus recommendations based on imaging criteria.
--- NOTE | 2024-04-09 10:35 | HMH.EDGENADL ---
Discharge Plan Disposition Patient Disposition: Home, Self-Care Prescriptions Prescriptions: New promethazine 25 mg tablet 25 mg PO Q6H PRN (Reason: nausea and vomiting) Qty: 16 0RF No Action allopurinol 300 mg tablet 300 mg PO DAILY fenofibrate nanocrystallized 145 mg tablet 145 mg PO DAILY levothyroxine 50 mcg capsule 50 mcg PO DAILY omeprazole 20 mg capsule,delayed release(DR/EC) 20 mg PO DAILY duloxetine 60 mg capsule,delayed release(DR/EC) 120 mg PO DAILY quetiapine 100 mg tablet 100 mg PO DAILY mycophenolate mofetil 500 mg tablet 500 mg PO BID buspirone 10 mg tablet 10 mg PO BID Referrals Follow up/Referrals: Mumtaz Larson MD [Primary Care Provider] - See instructions Daniel Del Toro MD [Referring] - See instructions Activity Restrictions/Add. Instructions Additional Instructions/Restrictions: At this time it was felt you are safe to be discharged home. If new or worsening symptoms please do not hesitate to return the emergency department. It is very important that you call Dr. Del Toro and schedule an appointment for your mass in your right kidney. Please take your medications as prescribed. Clinical Impressions Clinical Impression: Kidney mass, Vomiting Instructions Patient Instructions: DI for Diarrhea and Traveler's Diarrhea -- Adult, DI for Diarrhea and Traveler's Diarrhea -- Child, DI for Nausea -- Adult, DI for Nausea -- Child Discharge ED Provider: Foreign Acosta General Adult HPI General Chief complaint: Nausea/Vomiting/Diarrhea Stated complaint: vomiting, weakness Time Seen by Provider: 04/09/24 10:23 History of Present Illness HPI narrative: ThisPatient is a 68-year-old male with past medical history of myasthenia on immunosuppressants who presents emergency department for evaluation of vomiting. Patient has had vomiting over the last year ultimately which was attributed to his gallbladder which was taken out in June with some resolution of symptoms however they have gotten progressively worse as time is gone on. Normally he vomits weekly however not intractable. He has had intractable vomiting over the last 24 hours with vague epigastric pain. Last bowel movement yesterday nonbloody. Refractory to Zofran at home. No chest pain reported. No other acute complaints at this time. Related Data Home Medications Medication Instructions Recorded Confirmed allopurinol 300 mg tablet 300 mg PO DAILY gout 05/20/22 07/15/23 duloxetine 60 mg capsule,delayed 120 mg PO DAILY mood 05/20/22 07/15/23 release fenofibrate nanocrystallized 145 145 mg PO DAILY HLD 05/20/22 07/15/23 mg tablet levothyroxine 50 mcg capsule 50 mcg PO DAILY hypothyroid 05/20/22 07/15/23 mycophenolate mofetil 500 mg tablet 500 mg PO BID immunosuppresant 05/20/22 07/15/23 omeprazole 20 mg capsule,delayed 20 mg PO DAILY GERD 05/20/22 07/15/23 release quetiapine 100 mg tablet 100 mg PO DAILY Anxiety 05/20/22 07/15/23 buspirone 10 mg tablet 10 mg PO BID GI 06/28/23 07/15/23 Previous Rx's Medication Instructions Recorded promethazine 25 mg tablet 25 mg PO Q6H PRN nausea and 04/09/24 vomiting #16 tabs Allergies Allergy/AdvReac Type Severity Reaction Status Date / Time Tetracyclines Allergy Unknown Verified 07/15/23 10:08 [facility] Disclaimer: The information contained in this section may have been updated after the patient was seen, as this information can be updated by other users. Medical History (Updated 04/09/24 @ 14:17 by Foreign Acosta MD) History of myasthenia gravis Hypothyroidism Hyperlipemia GERD (gastroesophageal reflux disease) Hypertension Type 2 diabetes mellitus Surgical History (Updated 07/15/23 @ 10:09 by JEWELS Madsen) History of laparoscopic cholecystectomy History of arthroscopy of left knee History of appendectomy History of colonoscopy History of umbilical hernia repair Family History Other No significant family history Social History Smoking Status: Former smoker tobacco type: cigarettes packs per day: 1 second hand exposure: No alcohol intake: never substance use type: marijuana current occupational status: retired Travel in the last 8 weeks: None household members: spouse housing: house caffeine: Yes ROS Obtained: Yes Systems reviewed as appropriate & no additional complaints except as documented Physical Exam General General appearance: alert and other (Retching at bedside) Head Head exam: atraumatic and normocephalic Eye Eye exam: Present PERRL ENT ENT exam: Present mucous membranes moist Neck Neck exam: Present normal inspection Chest Chest inspection: Present normal inspection and symmetric chest wall rise Respiratory Respiratory exam: Present normal lung sounds bilaterally; Absent respiratory distress Cardiovascular Cardiovascular exam: Present regular rate and normal rhythm Abdominal Exam Abdominal exam: Present soft and tenderness (Periumbilical epigastric); Absent rebound Extremities Exam Extremities exam: Present normal inspection Neurological Exam Neurological exam: Present alert Psychiatric Psychiatric exam: Present normal affect Skin Skin exam: Present warm and dry Medical Decision Making Jb Inquiry Pt receiving controlled substance: No Vital Signs: 04/09/24 10:13 04/09/24 10:19 04/09/24 10:30 Temperature 98.1 F Temperature Source Oral Pulse Rate 63 72 Pulse Rate [Left Radial] 76 Respiratory Rate 18 Blood Pressure 149/99 H 135/65 Blood Pressure [Right Arm] 149/99 H Blood Pressure Mean [Right Arm] 115 Blood Pressure Source [Right Arm] Automatic Cuff Blood Pressure Position [Right Arm] Sitting 02 Sat by Pulse Oximetry 98 98 97 Oxygen Delivery Method Room Air Room Air Room Air 04/09/24 11:31 04/09/24 12:00 04/09/24 13:00 Temperature Temperature Source Pulse Rate 76 114 H 69 Pulse Rate [Left Radial] Respiratory Rate Blood Pressure 175/85 H 144/97 H 151/97 H Blood Pressure [Right Arm] Blood Pressure Mean [Right Arm] Blood Pressure Source [Right Arm] Blood Pressure Position [Right Arm] 02 Sat by Pulse Oximetry 99 98 99 Oxygen Delivery Method Room Air Room Air Room Air 04/09/24 13:30 Temperature Temperature Source Pulse Rate 82 Pulse Rate [Left Radial] Respiratory Rate Blood Pressure 124/88 Blood Pressure [Right Arm] Blood Pressure Mean [Right Arm] Blood Pressure Source [Right Arm] Blood Pressure Position [Right Arm] 02 Sat by Pulse Oximetry 98 Oxygen Delivery Method Room Air Lab Data Lab Results 04/09/24 10:30: WBC 6.4, RBC 5.36, Hgb 15.3, Hct 48.0, MCV 89.5, MCH 28.5, MCHC 31.9, RDW 14.6, Plt Count 450 H, MPV 8.3, Neut % (Auto) 62.9, Lymph % (Auto) 28.7, [place] % (Auto) 6.3, Eos % (Auto) 1.0, Baso % (Auto) 1.1, Neut # (Auto) 4.0, Lymph # (Auto) 1.8, [place] # (Auto) 0.4, Eos # (Auto) 0.1, Baso # (Auto) 0.1, Sodium 142, Potassium 3.1 L, Chloride 107, Carbon Dioxide 23, Anion Gap 15.1 H, BUN 10, Creatinine 0.90, Estimated Creat Clear 93, Estimated GFR 83, Est GFR ( Amer) 101, Glucose 121 H, Calcium 9.6, Total Bilirubin 0.7, AST 29, ALT 23, Alkaline Phosphatase 63, Total Protein 7.1 D, Albumin 4.4, Globulin 2.7, Albumin/Globulin Ratio 1.6, Lipase 86 04/09/24 12:18: Urine Color Yellow, Urine Appearance Clear, Urine pH 7.5, Ur Specific [place] 1.015, Urine Protein Negative, Urine Glucose (UA) Negative, Urine Ketones Negative, Urine Blood Negative, Urine Nitrate Negative, Urine Bilirubin Negative, Urine Urobilinogen 1.0, Ur Leukocyte Esterase Negative, Urine RBC None, Urine WBC None, Ur Squamous Epith Cells Occasional, Urine Bacteria Trace 04/09/24 10:30 04/09/24 10:30 Orders (Tests/Meds): ED MEDICATIONS Generic Name Dose Route Start Last Admin Trade Name Freq PRN Reason Stop Dose Admin Sodium Chloride 10 ml 04/09/24 12:31 04/09/24 12:33 Sodium Chloride 0.9% 10ml Syr (Rad Only) IV 05/09/24 12:30 10 ml NEEDED PRN Administration Maintain IV Site Discontinued Medications Generic Name Dose Route Start Last Admin Trade Name Freq PRN Reason Stop Dose Admin Diphenhydramine HCl 25 mg 04/09/24 12:20 04/09/24 12:40 Diphenhydramine 50mg/Ml Vial IV 04/09/24 12:21 25 mg ONCE ONE Administration Droperidol 2.5 mg 04/09/24 11:04 04/09/24 11:08 Droperidol 5mg/2ml Vial IV 04/09/24 11:05 2.5 mg ONCE ONE Administration Droperidol 2.5 mg 04/09/24 12:14 04/09/24 12:19 Droperidol 5mg/2ml Vial IV 04/09/24 12:15 2.5 mg ONCE ONE Administration Lactated Ringer's 1,000 mls @ 999 mls/hr 04/09/24 10:30 04/09/24 10:38 Lactated Ringer's 1000 Ml Bag IV 04/09/24 11:30 999 mls/hr .Q1H1M ONE Administration Iopamidol 75 ml 04/09/24 12:31 04/09/24 12:33 Iopamidol-370 (76%);100ml Bottle IV 04/09/24 12:32 75 ml ONCE ONE Administration Ondansetron HCl 4 mg 04/09/24 10:25 04/09/24 10:38 Ondansetron 4mg/2ml Vial IV 04/09/24 10:26 4 mg ONCE ONE Administration Potassium Chloride 40 meq 04/09/24 13:22 04/09/24 13:34 Potassium Chloride 20meq Tab PO 04/09/24 13:23 40 meq ONCE ONE Administration Promethazine HCl 25 mg 04/09/24 10:35 04/09/24 10:39 Promethazine Hcl 25mg/Ml 1ml Vial IV 04/09/24 10:36 25 mg ONCE ONE Administration Sodium Chloride 25 ml 04/09/24 10:35 04/09/24 10:39 Sodium Chloride 0.9% 25ml Bag IV 04/09/24 10:36 25 ml ONCE ONE Administration ORDERS Category Date Time Status CT abdomen pelvis w con Stat Cat Scan 04/09/24 10:[address] head/brain wo con Stat Cat Scan 04/09/24 11:35 Completed CBC w/Auto Diff [Complete Blood Count Auto Diff] Stat Lab 04/09/24 10:30 Completed CMP [Comprehensive Metabolic Panel] Stat Lab 04/09/24 10:30 Completed Lipase Stat Lab 04/09/24 10:30 Completed UA [Urinalysis and Microscopic] Stat Lab 04/09/24 12:18 Completed EKG Request [ECG Request] Stat Y 04/09/24 10:35 Ordered ECG Data Tracing #1: Independently interpreted by me rate is 50, rhythm is regular, sinus bradycardia, QTc 424, no ST elevation in anatomical contiguous leads. Medical Decision Narrative: In summary patient is a 5-year-old male with past medical history described above who presents emergency department for evaluation of intractable vomiting. Patient is hemodynamically stable nontoxic-appearing upon arrival, afebrile. Differential diagnosis includes pancreatitis, mass, viral syndrome, among others. Patient does not have any history of THC abuse to suggest cannabinoid hyperemesis syndrome, no sick contacts. Workup will be conducted with hematologic labs, urinalysis, CT abdomen pelvis IV contrast. Initial inventions include crystalloid bolus, Zofran. Upon repeat evaluation patient had refractory intractable retching to Zofran for which Phenergan will be administered. Initial workup reviewed by me, hematologic labs are remarkable for hypokalemia which will be repleted orally. Prior to oral patient patient had persistent vomiting for which droperidol was administered. Persistent vomiting again for which droperidol was readministered. He was able to swallow potassium and tolerate minimal amount of p.o. water. CT imaging of the head shows no acute stroke intracranial hemorrhage. CT abdomen pelvis shows gastric mucosal thickening and complex mass of the right kidney measuring 2.5 x 2.9 cm with moderate pericardial effusion 2.5 cm. Patient has no significant tachycardia or shortness of breath or chest pain to suspect pending tamponade at this time. My concern for disseminated malignancy is high given intractable vomiting despite multiple antiemetics. Shared decision-making discussion was had with outpatient management with Dr. Acevedo versus transfer to [facility] or [facility] [place] for higher level of care. Although patient is still retching he wishes to attempt drinking water at home and outpatient management. This was felt to be reasonable and patient is appropriate for discharge at this time and will be discharged with a course of Phenergan and was given multiple return precautions and verbalized understanding. Critical Care Critical Care Time Critical Care Time: No
[2024-04-09] MEDS: ONDANSETRON 4MG/2ML VIAL 4 MG IV (10:38)
[2024-04-09] MEDS: LACTATED RINGERS 1000ML 1,000 ML 999 ML IV (10:38)
[2024-04-09] MEDS: PROMETHAZINE HCL 25MG/ML 1ML VIAL 25 MG IV (10:39)
[2024-04-09] MEDS: SODIUM CHLORIDE 0.9% 25ML BAG 25 ML IV (10:39)
[2024-04-09 10:43] LABS: Chloride 107 mmol/L (98-107); Sodium 142 mmol/L (136-145)
[2024-04-09 10:44] LABS: Potassium 3.1 mmoL/L (3.5-5.1)
[2024-04-09 10:46] LABS: Alanine Aminotransferase 23 U/L (12-78); Albumin Level 4.4 g/dl (3.5-5.0); Albumin/Globulin Ratio 1.6 (1.1-1.8); Alkaline Phosphatase 63 U/L (38-126); Anion Gap 15.1 mEq/L (5-15); Aspartate Amino Transferase 29 U/L (17-59); Bilirubin,Total 0.7 mg/dl (0.2-1.3); Blood Urea Nitrogen 10 mg/dl (9-20); Calcium 9.6 mg/dl (8.4-10.2); Carbon Dioxide 23 mmol/L (22.0-30.0); Creatinine Clearance Estimated 93 mL/min (50-200); Estimated Glomerular Filt Rate 83 ml/min (>60); GFR (African American) 101 ML/MIN (>60); Globulin 2.7 g/dL (1.3-3.2); Glucose 121 mg/dl (74-100); Lipase 86 U/L (23-300); Total Protein,Serum 7.1 g/dl (6.3-8.2)
[2024-04-09 10:49] LABS: Basophils # 0.1 K/mm3 (0-0.2); Basophils % 1.1 % (0.1-2.0); Eosinophils # 0.1 K/mm3 (0.0-0.4); Hemoglobin 15.3 g/dL (14.1-18.0); Lymphocytes # 1.8 K/mm3 (0.7-4.5); Lymphocytes % 28.7 % (10-50); Mean Corpuscular HGB Conc 31.9 g/dL (31.8-35.4); Mean Corpuscular Hemoglobin 28.5 pg (27.0-31.2); Mean Corpuscular Volume 89.5 fl (80-94); Mean Platelet Volume 8.3 fl (7.4-10.4); Monocytes # 0.4 K/mm3 (0.1-1.0); Monocytes % 6.3 % (1.7-9.3); Neutrophils % 62.9 % (37.0-80.0); Platelet Count 450 K/mm3 (142-424); Red Blood Count 5.36 M/mm3 (4.60-6.20); Red Cell Distribution Width 14.6 % (11.5-17.5); White Blood Count 6.4 K/mm3 (4.8-10.8)
--- NOTE | 2024-04-09 10:57 | ECG_ITS ---
APPROVED REPORT Exam: Resting ECG HR:50 bpm ECG Measurements Heart Rate 50 AXES CO 162 P 45 QRSd 106 QRS -12 QT 451 T 31 QTc 424 Conclusion SINUS BRADYCARDIA WITH OCCASIONAL SUPRAVENTRICULAR PREMATURE COMPLEXES MODERATE ST DEPRESSION [0.05+ mV ST DEPRESSION] ABNORMAL ECG Electronically signed by : PRAFUL GALVEZ, 04/09/2024 12:51:58
--- NOTE | 2024-04-09 11:01 | PC.NURSE ---
pt given urinal to collect urine sample
--- NOTE | 2024-04-09 11:07 | HMH.ITSTN ---
ed to call when pt is able to go for scan
[2024-04-09] MEDS: droPERidol 5MG/2ML VIAL 2.5 MG IV ×2 (11:08→12:19)
--- NOTE | 2024-04-09 11:35 | CT_ITS ---
PROCEDURE INFORMATION: Exam: CT Head Without Contrast Exam date and time: 04/09/2024 12:21 PM Age: 68 years old Clinical indication: Other: Vomiting; Additional info: Intractible chronic vomiting TECHNIQUE: Imaging protocol: Computed tomography of the head without contrast. Radiation optimization: All CT scans at this facility use at least one of these dose optimization techniques: automated exposure control; mA and/or kV adjustment per patient size (includes targeted exams where dose is matched to clinical indication); or iterative reconstruction. COMPARISON: CT HEAD/BRAIN WO CON 04/04/2022 12:19 PM FINDINGS: Brain: No acute intracranial hemorrhage.. Minimal diffuse heterogeneity of the white matter attenuation, consistent with chronic white matter ischemic changes. Minimal cerebral atrophy Cerebral ventricles: No ventriculomegaly. Paranasal sinuses: Opacity in the right maxillary sinus and right ethmoid sinus may represent mild sinusitis Mastoid air cells: Visualized mastoid air cells are well aerated. Bones: Unremarkable. No acute fracture. Soft tissues: Unremarkable. IMPRESSION: No acute intracranial hemorrhage..
[2024-04-09 12:27] LABS: Appearance,Urine CLEAR (Clear); Bilirubin,Urine Negative (Negative); Blood, Urine Negative (Negative); Color,Urine YELLOW (Yellow); Glucose,Urine (UA) Negative (Negative); Ketones,Urine Negative (Negative); Leukocyte Esterase,Urine Negative (Negative); Microscopic, Urine URINE MICROSCOPIC (MICROSCOPIC); Nitrate,Urine Negative (Negative); PH,Urine 7.5 (5.0-8.5); Protein,Urine Negative (Negative); Specific Gravity, Urine 1.015 (1.005-1.030)
[2024-04-09] MEDS: IOPAMIDOL-370 (76%);100ML BOTTLE 75 ML IV (12:33)
[2024-04-09] MEDS: SODIUM CHLORIDE 0.9% 10ML SYR (RAD ONLY) 10 ML IV (12:33)
[2024-04-09] MEDS: diphenhydrAMINE 50MG/ML VIAL 25 MG IV (12:40)
[2024-04-09 13:32] LABS: Bacteria,Urine Trace /lpf
[2024-04-09 13:33] LABS: Squamous Epithelial Cell,Urine Occasional #/hpf (0-5)
[2024-04-09] MEDS: POTASSIUM CHLORIDE 20MEQ TAB 40 MEQ PO (13:34)
--- NOTE | 2024-04-09 13:37 | PC.NURSE ---
I rounded on the pt. vss. no new complaints at this time. I took his something to drink. I asked if the pt needed anything and he declined.
== END 2024-04-09 15:03 | disposition home or self-care (01) ==
PROVIDERS: Emergency Provider Emergency Medicine; PCP Family Medicine
DX: R10.816 Epigastric abdominal tenderness (principal); R11.2 Nausea with vomiting, unspecified; E87.6 Hypokalemia; I49.3 Ventricular premature depolarization; R00.1 Bradycardia, unspecified; G70.00 Myasthenia gravis without (acute) exacerbation; D84.89 Other immunodeficiencies; D49.511 Neoplasm of unspecified behavior of right kidney
CPT/HCPCS: 70450; 74177; 80053; 81001; 83690; 85025; 93005; 96361; 96374; 96375; 96376; 99285; J1790; J2405; J2550; J7120; Q9967

== ENCOUNTER 2024-04-11 14:15 | Outpatient (CLI) | payer MEDICARE, SELFPAY ==
[2024-04-11 14:30] VITALS: BP 140/101; PULSE 92; RESP 18; TEMP 37.4; O2SAT 100
[2024-04-11] MEDS: PROMETHAZINE HCL 25MG/ML 1ML VIAL 25 MG (14:30)
[2024-04-11 14:45] VITALS: BP 160/96; PULSE 93
[2024-04-11] MEDS: 0.9 % SODIUM CHLORIDE 1000ML 2,000 ML 999 ML IV (14:45)
[2024-04-11] MEDS: PROCHLORPERAZINE 10MG/2ML VIAL 10 MG (15:05)
[2024-04-11 15:45] VITALS: BP 170/104; PULSE 97
[2024-04-11 16:57] VITALS: BP 159/84; PULSE 89; RESP 18; O2SAT 99
== END 2024-04-11 17:07 | disposition home or self-care (01) ==
LOC: INF 14:19
PROVIDERS: PCP Family Medicine; Visit Provider Family Medicine
DX: R11.2 Nausea with vomiting, unspecified (principal); Z79.899 Other long term (current) drug therapy
CPT/HCPCS: 96361; 96374; 96360; 96375; J2550

== ENCOUNTER 2024-04-14 15:02 | Outpatient (CLI) | payer MEDICARE, SELFPAY ==
--- NOTE | 2024-04-14 15:08 | CA_ITS ---
APPROVED REPORT EXAM: Comprehensive 2D, Doppler, and color-flow Echocardiogram Correction Warden: Crystal Oneill RVT Ht: 6 ft 0 in Wt: 200lbs BSA: 2.13 BP: 102/73 mmHg Indications: KNOWN PERICARDIAL EFFUSION SEEN ON CT SCAN,EX SMOKER,BRETT,HTN,HLD,KIDNEY MASS TDS-LIMITED WINDOWS 2D Dimensions IVSd 1.00 cm M: 0.6-1.2 LVEF (Visual) 55.60 % PWd 0.97 cm M: 0.6 - 1.2 LA Volume 51.50 mL LVDd 4.50 cm M: 4.2 - 5.9 LA Volume Index 24.18 mL/m2 (M/F) 16-34 LVDs 3.20 cm M: 2.5 - 4.0 M-Mode Dimensions LA Diam 4.30 cm (1.9-4.0) TAPSE 1.97 (<1.7) LV Diastology E Decel Time 150 (160-240 msec) E/A Ratio 0.6 Aortic Valve KATHERYN Index 1.73 cm2/m2 AoV Peak Juan Carlos. 112.0 (50-130 cm/s) AI PHT 1368.00 ms AO Peak GR. 5.00 mmHg AO Mean GR. 2.90 (<5 mmHg) AO VTI 20.7 (18-25 cm) KATHERYN (VTI) 3.77 (2.5-4.5 cm2) Mitral Valve MV E Max Juan Carlos. 42.0 (40-130 cm/s) MV A Velocity 73.0 (40-130 cm/s) E/A Ratio 0.57 MV PHT 44.0 ms Pulmonary Valve PV Peak Velocity 79.0 (50-150 cm/s) Left Ventricle The left ventricle is normal size. The left ventricular systolic function is normal. The left ventricular ejection fraction is within the normal range. There is increased LV wall thickness. There is normal LV segmental wall motion. Transmitral Doppler flow pattern suggests impaired LV relaxation. LVEF is 60%. Right Ventricle Right ventricle is mildly dilated. The right ventricular systolic function is normal. Atria Left atrium is mildly dilated. The right atrium size is normal. There is no Doppler evidence of interatrial shunt. Aortic Valve The aortic valve is mildly thickened. There is no aortic valvular stenosis. Mild to moderate aortic regurgitation. Mitral Valve The mitral valve leaflets are mildly thickened. No evidence of mitral valve stenosis. Trace mitral regurgitation. Tricuspid Valve The tricuspid valve leaflets are thin and pliable. Trace tricuspid regurgitation. There is insufficient TR jet to estimate RVSP. Pulmonic Valve The pulmonary valve is normal in structure. Trace pulmonic regurgitation. Great Vessels The aortic root is normal in size. The ascending aorta is mildly dilated, measuring 4.0 cm in diameter. IVC is normal in size and collapses >50% with inspiration. Pericardium Small-sized, inferior pericardial effusion is present. The largest pocket measures 0.7 cm in diastole. No echo indications of tamponade. Other Information Study Quality: Technically Difficult Conclusion Technically difficult study due to poor acoustic windows. Normal biventricular systolic function. Mild RV dilation. Mild LA dilation. Mild to moderate AI. Ascending aorta is mildly dilated, measuring 4.0 cm in diameter. Small-sized, inferior pericardial effusion is present. The largest pocket measures 0.7 cm in diastole. No echo indications of tamponade. Electronically signed by : Tonya Ferrer MD 04/20/2024 20:51:20
--- NOTE | 2024-04-14 15:43 | US_ITS ---
FINAL REPORT TECHNIQUE: Ultrasound images of the kidneys and bladder were obtained. CLINICAL HISTORY: NEOPLASM RIGHT KIDNEY COMPARISON: CT pelvis 04/09/2024 FINDINGS: The right kidney measures 14.5 cm in length. There is a heterogeneous mass in the right kidney, measuring 2.7 cm in diameter. This was also seen on the abdominal and pelvic CT from April 09, and is suspicious for neoplasm. There is no hydronephrosis. The left kidney measures 13.7 cm in length. There is a complex cyst in the left kidney measuring up to 2.9 cm in diameter. There is no hydronephrosis. IMPRESSION: Heterogeneous complex mass of the right kidney measuring 2.7 cm in diameter, suspicious for neoplasm. Recommend further workup with renal mass protocol CT for further evaluation. Reviewed, Interpreted and Dictated by Raf Llamas MD Transcribed by Myriam Maldonado Authenticated and [facility]
== END 2024-04-14 23:59 | disposition home or self-care (01) ==
LOC: RT 15:03
PROVIDERS: PCP Family Medicine; Visit Provider Family Medicine
DX: D41.01 Neoplasm of uncertain behavior of right kidney (principal); I31.39 Other pericardial effusion (noninflammatory)
CPT/HCPCS: 76770; 93306

== ENCOUNTER 2024-04-24 13:11 | Outpatient (CLI) | payer MEDICARE, SELFPAY ==
--- NOTE | 2024-04-24 13:37 | CT_ITS ---
FINAL REPORT TECHNIQUE: Pre- and postcontrast images of the abdomen were performed by computed tomography. This study was performed with technique to keep radiation doses as low as reasonably achievable. (ALARA). CLINICAL HISTORY: NEOPLASM OF UNCERTAIN BEHAVIOR RT KIDNEY COMPARISON: CT abdomen and pelvis dated 04/09/2024, ultrasound kidneys dated 04/14/2024 FINDINGS: Noncontrast images demonstrate a less than 3 mm nonobstructing left renal stone. There are mild vascular calcifications. Postcontrast images redemonstrate a small to moderate pericardial effusion. The liver is normal in size and attenuation. The patient is status postcholecystectomy. The spleen is unremarkable. The adrenals are normal. The pancreas is unremarkable. There is a cyst in the upper pole of the right kidney measuring 14 mm. There is a heterogeneous, contrast-enhancing mass in the mid right kidney measuring 2.6 x 2.2 cm. This is worrisome for neoplasm. There are multiple less than 1 cm left renal cysts. There is no hydronephrosis. The appendix is not visualized. There is descending sigmoid diverticulosis. Degenerative and postoperative changes are seen in the spine. The renal veins are patent. There is no adenopathy. IMPRESSION: Right renal mass is most worrisome for renal neoplasm. No evidence of metastatic disease. Reviewed, Interpreted and Dictated by Oli Motley III, MD Transcribed by Vanita Rosales Authenticated and [facility]
[2024-04-24] MEDS: SODIUM CHLORIDE 0.9% 10ML SYR (RAD ONLY) 10 ML IV (14:14)
[2024-04-24] MEDS: IOPAMIDOL-370 (76%);100ML BOTTLE 75 ML IV (14:14)
== END 2024-04-24 23:59 | disposition home or self-care (01) ==
LOC: RAD 13:15
PROVIDERS: PCP Family Medicine; Visit Provider Family Medicine
DX: D41.01 Neoplasm of uncertain behavior of right kidney (principal)
CPT/HCPCS: 74170; Q9967

== ENCOUNTER 2024-07-25 09:00 | Outpatient (POV) | payer MEDICARE, SELFPAY | END 2024-07-25 23:59 | disposition home or self-care (01) | LOC: SC 07-26 06:25 | PROVIDERS: Visit Provider Dermatology | DX: Z00.00 Encounter for general adult medical examination without abnormal findings (principal) ==

== ENCOUNTER 2024-12-01 13:02 | Outpatient (CLI) | payer MEDICARE, SELFPAY ==
--- NOTE | 2024-12-01 13:05 | US_ITS ---
FINAL REPORT TECHNIQUE: Ultrasound images of the kidneys and bladder were obtained. CLINICAL HISTORY: CARCINOMA OF KIDNEY COMPARISON: 04/14/2024 FINDINGS: The right kidney has been surgically resected since the prior ultrasound of March 2024, which apparently represented a renal cell carcinoma. There is no mass in the surgical bed to indicate residual or recurrent tumor. The left kidney measures 15 cm in length. There is a questionable nonobstructing echogenic focus that may represent a small renal stone. It is normal in echogenicity. There is no hydronephrosis. Note is made of mild splenomegaly, the spleen measuring 14.7 cm on the current exam, was previously 12.5 cm. IMPRESSION: Interval right renal resection for renal cell carcinoma since the prior exam of 04/14/2024. Questionable nonobstructing stone in the left kidney. Mild splenomegaly as described, new since the prior exam. Reviewed, Interpreted and Dictated by Raf Llamas MD Transcribed by Myriam Maldonado Authenticated and [facility]
== END 2024-12-01 23:59 | disposition home or self-care (01) ==
LOC: RAD 13:03
PROVIDERS: PCP Family Medicine; Visit Provider Urology
DX: C64.9 Malignant neoplasm of unspecified kidney, except renal pelvis (principal)
CPT/HCPCS: 76770

== ENCOUNTER 2024-12-15 14:00 | Outpatient (RCR) | payer MEDICARE, SELFPAY | END 2024-12-15 23:59 | disposition home or self-care (01) | LOC: OT 14:00 | PROVIDERS: Visit Provider Physician Assistant Surgical | DX: Z98.890 Other specified postprocedural states (principal); M25.511 Pain in right shoulder | CPT/HCPCS: 97014; 97110; 97140; 97166; G0283 ==

== ENCOUNTER 2025-01-12 10:00 | Outpatient (RCR) | payer MEDICARE, SELFPAY | END 2025-01-12 23:59 | disposition home or self-care (01) | LOC: OT 10:00 | PROVIDERS: Visit Provider Physician Assistant Surgical | DX: Z98.890 Other specified postprocedural states (principal) | CPT/HCPCS: 97014; 97110; 97140; 97168; G0283 ==

== ENCOUNTER 2025-01-24 08:56 | Outpatient (RCR) | payer MEDICARE, SELFPAY | END 2025-01-24 23:59 | disposition home or self-care (01) | LOC: OT 08:56 | PROVIDERS: Visit Provider Physician Assistant Surgical | DX: Z98.890 Other specified postprocedural states (principal) | CPT/HCPCS: 97110; 97140 ==

== ENCOUNTER 2025-02-15 10:25 | Outpatient (CLI) | payer MEDICARE, SELFPAY ==
--- NOTE | 2025-02-15 10:34 | XR_ITS ---
FINAL REPORT CLINICAL HISTORY: COUGH FINDINGS: 2 views of the chest were obtained . The heart is at the upper limits of normal normal in size. Thoracic aorta is unfolded. The mediastinum is within normal limits. The lungs are clear. There is no pneumothorax. Osseous structures demonstrate a right shoulder prosthesis. IMPRESSION: No acute cardiopulmonary process. Reviewed, Interpreted and Dictated by Sherif Chavis MD Transcribed by Waleska Worthy Authenticated and [facility]
== END 2025-02-15 23:59 | disposition home or self-care (01) ==
LOC: RAD 10:26
PROVIDERS: PCP Family Medicine; Visit Provider Family Medicine
DX: R05.9 Cough, unspecified (principal)
CPT/HCPCS: 71046

== ENCOUNTER 2025-03-22 09:45 | Outpatient (CLI) | payer MEDICARE, SELFPAY ==
--- NOTE | 2025-03-22 09:48 | US_ITS ---
FINAL REPORT TECHNIQUE: Ultrasound images of the kidneys and bladder were obtained. CLINICAL HISTORY: MALIGNANT NEOPLASM OF RT KIDNEY COMPARISON: 12/01/2024 FINDINGS: The right kidney is surgically absent. The left kidney measures 14.8 cm in length. There is a hypodense lesion adjacent to an echogenic focus in the upper pole of the left kidney, that is smaller than seen on the prior ultrasound. Favor this represents a small cyst. There is no hydronephrosis. The urinary bladder was not imaged on this examination. The spleen is mildly enlarged measuring 13.4 cm in the craniocaudal dimension. IMPRESSION: The right kidney is surgically absent in this patient with known malignant neoplasm. As described above, there is a hypodense lesion with a small echogenic focus in the upper pole, which has decreased in size since the prior exam, favor that this represents a small cyst. Mild splenomegaly. Reviewed, Interpreted and Dictated by Lelo Tapia MD Transcribed by Myriam Maldonado Authenticated and [facility]
== END 2025-03-22 23:59 | disposition home or self-care (01) ==
LOC: RAD 09:45
PROVIDERS: PCP Family Medicine; Visit Provider Urology
DX: C64.1 Malignant neoplasm of right kidney, except renal pelvis (principal); N28.9 Disorder of kidney and ureter, unspecified; R16.1 Splenomegaly, not elsewhere classified; Z90.5 Acquired absence of kidney
CPT/HCPCS: 76770

== ENCOUNTER 2025-06-16 09:24 | Emergency (ER) | payer MEDICARE, SELFPAY ==
[2025-06-16] VITALS (8 sets, daily range): BP systolic 109–136; BP diastolic 65–91; PULSE 80–112; RESP 17–18; TEMP 37–37.1; O2SAT 97–100; BMI 26.4
--- OUTSIDE RECORDS SUMMARY | 2025-06-16 09:38 | XMS_ITS | Encounter Summary ---
Author Organization [employer] ([place], [place], [place], [place]) Address [address] [place] [address] Care Team Providers Care Rn Geriatric Name Role Phone Mumtaz Larson MD Primary Care Provider + [phone] Encounter Details Date Type Department Care Team (Late st Contact Info) Description 04/06/2022 Transcribed Document [facility] Medicine [address] [place] [address] ProviderGabriel MD [address] [place] [address] Social History Tobacco Use Types Packs/Day Years Used Date Smoking Tobacco: Never Assessed Food Insecurity Answer Date Recorded Food run out past 12 months Not on file 10/18 Food did not last past 12 months Not on file 10/29/2023 Employment Answer Date Recorded Help finding and keeping a job Not on file 0 10/29/2023 Family and Community Support Answer Osvaldo e Recorded Help with Day to Day Activities Not on file 10/29/2023 Feeling Lonely or Isolated Not on file 10/29 Educational Attainment Answer Date Macario rded Speak language other than Nigerian at home Not on file 10/29/2023 Want help with school or training Not on file 10/29/2023 Substance Use Answer Date Recorded Used prescription meds for non-medical reasons N ot on file 10/29/2023 Used illegal drugs past 12 months Not on file 10/29/2023 Sex and Gender Information Value Date Recorded Sex Assigned at Male 05/13/2022 12:59 PM CDT Legal Sex Male 1:44 PM CDT Gender Identity Male 05/13/2022 12:59 PM CDT Sexual Orientation Not on file COVID-19 Exposure Response Date Recorded In the last 10 days, have yo u been in contact with someone who was confirmed or suspected to have Coronavirus/COVID-19? No / Unsure 02/03/2023 10:46 AM EDT documented as of this encounter Miscellaneous Notes * Cerner Conversion Note - Historical Provider, - 04/06/2022 5:01 PM CDT DATE OF CONSULTATION: 04/06/2022 NEUROLOGY CONSULTATION REASON FOR CONSULT: Dysphagia. HISTORY OF PRESENT ILLNESS: This is a 66-year-old male, who has a history of recent viral meningitis as well as diabetes, hypertension, who was admitted today from an outside facility for a 1-week history of dysphagia with some slurred speech and trouble swallowing. His gives much of the history as the patient is having difficulty talking as well as breathing. She states that fairly acutely one week ago while eating, he felt as if his tongue was thick and that he was having trouble maneuvering it and swallowing. These symptoms did improve that night, however, recurred over the next several days and have worsened to the point where he can really no longer eat safely. She has also noticed that his eyes seem to be drooping and knew this evening after transferred here, he is having some difficulty breathing. He has never had any type of similar symptoms before. He was admitted to an outside hospital in February with a diagnosis of viral meningitis, which presented with altered mental status and encephalopathy. The is not clear on exactly what the spinal fluid results showed, but was told that this was a type of viral meningitis and it did seem to improve fairly quickly. She also notes that at that time, he was given some IV steroids and seemed to improve very rapidly, although I do not believe that he was continued on steroids. She also reports he was given some steroids before transfer here and his swallowing did seem to briefly improve. The patient also notes that he is having double and blurry vision that he feels significant trouble breathing while lying flat and continues to have trouble speaking due to the dysarthria. No focal numbness, weakness, or tingling. No weakness of any extremity. He has had some reduction in his Seroquel in the last week by his primary care physician, but as noted, no improvement in his symptoms following the medication change. He denies any new medications recently. He does note that he may have had some tick bites recently, but denies a rash or other prodromal-type symptoms. His is not sure if he was tested for tick borne illness on the spinal fluid from early in February. PAST MEDICAL HISTORY: Recent viral meningitis, type 2 diabetes, hypertension. HOME MEDICATIONS: 1. Melatonin. 2. Budesonide. 3. Omeprazole. 4. Duloxetine. 5. Docusate. 6. Benadryl as needed. 7. Fenofibrate. 8. Levothyroxine. 9. Allopurinol. 10. Metformin. 11. Atenolol with chlorthalidone. 12. Seroquel. 13. Potassium chloride. 14. Pramipexole. 15. Fluticasone. 16. Flomax. SOCIAL HISTORY: He is and lives with his . There is no use of alcohol, tobacco, or illicit drugs. FAMILY HISTORY: Noncontributory at this time. REVIEW OF SYSTEMS: As per HPI. Given the patient's difficulty breathing, I could not obtain a detailed review of systems from him. PHYSICAL EXAMINATION: GENERAL: He is awake and alert. He is in mild distress from difficulty breathing. He was able to answer my questions appropriately and followed commands. VITAL SIGNS: Blood pressure 166/95, heart rate 74, temperature 97.5. CARDIAC: Showing normal sinus rhythm. RESPIRATIONS: Appear exaggerated, and he is tachypneic, which improved when he sat up. No wheezing or other abnormal sounds were heard. EXTREMITIES: Without clubbing, cyanosis, or edema. NEUROLOGIC: His speech is fluent with intact comprehension. He is moderately dysarthric. Cranial nerves are notable for bilateral ptosis, worse on the right and he may have some facial weakness as well, although no weakness in the cervical musculature was noted, and otherwise cranial nerves were intact. He is moving all extremities equally with normal muscle bulk and tone. Motor strength is 5/5 throughout. Sensation intact to light touch. She was not ataxic with [id number]. Deep tendon reflexes are 2+ and symmetric. I did not ambulate him due to fall risk. DIAGNOSTIC STUDIES: IMAGING STUDIES: A head CT prior to transfer here was reported to be unremarkable. I was not able to view those images. An MRI is pending here. He had CT angiograms of the head and neck as well prior to transfer, which were also unremarkable. LABORATORY RESULTS: Blood work here thus far shows white count 15.6, although again he did recently receive steroids. Other labs are pending. ASSESSMENT AND PLAN: 66-year-old male, who has a history of viral meningitis reported recently, now admitted with a 1-week history of dysphagia, dysarthria, now with some blurry and double vision and difficulty breathing. Differential is fairly broad and includes neuromuscular disease such as myasthenia gravis, manifestations of meningitis including possible tick-borne disease, paraneoplastic disorder, other forms of neuromuscular disease with a stroke or intracranial mass lesion considered to be less likely. For now, we will plan for an MRI of the brain with and without contrast. I have ordered antibodies for acetylcholine receptor to evaluate for myasthenia gravis, and I will empirically give him IV Mestinon tonight to see if this improves his symptoms. I have ordered respiratory mechanics including vital capacity and negative inspiratory force. We will consider high-dose steroids or immune globulin should his symptoms worsen while we await further workup. I will also request his records from [facility] regarding his recent viral meningitis and we may consider repeating a lumbar puncture here if indicated. We will also get Speech, Physical, and Occupational Therapy involved and he will remain n.p.o. until his speech evaluation. Plan was discussed at length with the patient and his and all questions were answered. I also discussed the plans with Dr. Steele. Neurology will follow closely. /[id number] MD STEPHEN Tyler/BRANDON / STEPHEN / MODL /[id number] Electronically signed by Lizabeth Polanco Conversion Hoisting Engineer P[employer] Driving Cerner at 02/01/2023 7:05 PM CDT documented in this encounter Plan of Treatment Not on file documented as of this encounter Visit Diagnoses Not on filedocumented in this encounter Care Teams Rn Geriatric Relationship Specialty Start Date End Date Mumtaz Larson MD [address] [facility] [address] [place] [id number] PCP - General Family Medicine 08/26/22 documented as of this encounter
--- OUTSIDE RECORDS SUMMARY | 2025-06-16 09:38 | XMS_ITS | Encounter Summary ---
Author Organization [employer] ([place], [place], [place], [place]) Address [address] [place] [address] Care Team Providers Care Steam Pressure Chamber Operator Name Role Phone Mumtaz Larson MD Primary Care Provider + [phone] Encounter Details Date Type Department Care Team (Late st Contact Info) Description 04/06/2022 Transcribed Document [facility] [facility] [address] [place] [address] ProviderGabriel MD [address] [place] [address] Social History Tobacco Use Types Packs/Day Years [...] Date Macario rded Speak language other than Honduran at home Not on file 10/29/2023 Want [...] Conversion Note - Historical Provider, - 04/06/2022 4:19 PM CDT Patient: TIEN GARCIA Age: 66 Years Sex: Male : 1955 Chief Complaint Tongue weakness Primary Care Provider RACHAEL, UNKNOWN History of Present Illness This is a 66 years old male patient past medical history of diabetes mellitus, GERD, active sleep apnea, hypertension, was transferred from [facility] for stroke-like symptoms for neurology evaluation, and was hospitalized beginning of February for acute viral meningitis he presented with altered mental status, nausea and vomiting time, was treated, patient report over the last 1 week he had difficulty in speaking and swallowing he was seen as an outpatient and his Seroquel dose was decreased, However patient continues unable to take his medications and unable to really eat or even drink adequately. Also reported he had double vision, and eyelid dropping started yesterday. His symptoms getting worse at night,he presented to emergency department at [facility] while he was in ER patient had double vision he also was given IV Solu-Medrol 125 according to his his symptoms significantly improved. His CT scan neck without contrast with no acute finding, CT scan head shows chronic ischemic changes in the basal ganglia bilaterally. Review of Systems Constitutional: [No fevers, chills, sweats] Eye: [No eye discharge, eye pain, redness] HEENT: [No ear pain, nasal congestion, sore throat, voice changes] Respiratory: [No shortness of breath, cough, pain on breathing, sputum production] Cardiovascular: [No Chest pain, palpitations, syncope, shortness of breath while laying flat] Gastrointestinal: [No nausea, vomiting, diarrhea, constipation] Genitourinary: [No hematuria, dysuria, incontinence, lesions on genitalia] Yvon/Lymph: [Negative for bruising tendency, swollen lymph glands, nosebleeds, history of anticoagulation] Endocrine: [Negative for excessive thirst, excessive hunger, excessive urination, heat or cold intolerance] Musculoskeletal: [No back pain, neck pain, joint pain, muscle pain, decreased range of motion] Integumentary: [No rash, pruritus, abrasions, lesions] Neurologic: [No weakness, numbness, frequent headaches, tremors, blackouts] Psychiatric: [No anxiety, depression, mood changes, hallucinations] Vital Signs T: 36.4 ??C HR: 74(Monitored) RR: 22 BP: 166/95 SpO2: 95% HT: 185.42 cm WT: 97.73 kg BMI: 28.4 Oxygen Settings (Last) Oxygen Therapy Mode: Nasal cannula (04/06/22 16:09:00) Oxygen Flow Rate: 2 Liter/Min (04/06/22 16:09:00) Physical Exam General: [Alert and oriented, well nourished, no acute distress]. Neurologic: [Awake, alert, and oriented X3, CN II-XII intact]. Eye: [ Ptosis, EOMI, normal conjuctiva]. HENT: [Normocephalic,, normal hearing, moist oral mucosa, no scleral icterus, no sinus tenderness]. Neck: [Supple, non-tender, no carotid bruits, no JVD, no lymphadenopathy]. Lungs: [Clear to auscultation and percussion, non-labored respiration]. Heart: [Normal rate, regular rhythm, no murmur, gallop or edema]. Abdomen: [Soft, non-tender, non-distended, normal bowel sounds, no masses]. Musculoskeletal: [Normal range of motion and strength, no tenderness or swelling]. Skin: [Skin is warm, dry and pink, no rashes or lesions]. Psychiatric: [Cooperative, appropriate mood and affect]. Assessment/Plan #Possible Myxasthenia Gravis Neuro check Keep n.p.o. Speech evaluation Order lipid panel, A1c, TSH, CRP, Sed rate, B12, Folate echocardiogram, MRI brain Consult neurology Monitor respiratory status, order chest x-ray Might need CT chest to rule out thymoma Discussed with neurology we will start by Pyridostigmine monitor symptoms #Dysphagia Possibly secondary to myasthenia gravis versus stroke Keep n.p.o. Speech therapy Might need feeding tube #Dyspnea likely from myasthenia Order CXR Breathing treatment PRN #Hypothyroidism Patient on levothyroxine at home Check TSH #Diabetes mellitus Sliding-scale insulin Monitor blood sugar Discussed with patient, family at bedside Discussed with neurology Labs, imaging chart from outside hospital reviewed Time spent 55 minutes Ordered: acetaminophen, 650 mg, Oral, Tab, Q4H, PRN for Pain (Mild 1-3), Routine, Start 04/06/22 16:45:00 EDT, 04/06/22 16:45:00 EDT albuterol-ipratropium, 3 mL, Nebulized Inhalation, Inh, RT_Q6H, PRN for Shortness of Breath, Routine, Start 04/06/22 16:45:00 EDT bisacodyl, 5 mg, Oral, EC Tab, Daily, PRN for Constipation, Routine, Start 04/06/22 16:45:00 EDT, 04/06/22 16:45:00 EDT magnesium hydroxide, 30 mL, Oral, Liquid, Daily, PRN for Constipation, Routine, Start 04/06/22 16:45:00 EDT ondansetron, 4 mg, IV Push, Inj, Q4H, PRN for Nausea, Routine, Start 04/06/22 16:45:00 EDT, 04/06/22 16:45:00 EDT oxyCODONE, 5 mg, Oral, Tab, Q4H, PRN for Pain (Moderate 4-6), Routine, Start 04/06/22 16:45:00 EDT, 04/06/22 16:45:00 EDT sodium chloride, 10 mL, IV Push, Inj, Q12H, Routine, Start 04/06/22 21:00:00 EDT sodium chloride, 10 mL, IV Push, Inj, See Comment, PRN for IV Use, Routine, Start 04/06/22 16:18:00 EDT Sodium Chloride 0.9% intravenous solution 1,000 mL, 1,000 mL, Bag Volume (mL) = 1,000, IntraVENous, Rate = 50 mL/Hr, start date 04/06/22 16:45:00 EDT, Routine Airway Suction Aspiration Precautions Blood Pressure BMP Basic Metabolic Panel Cardiac Monitoring CBC w/ Auto Diff CBC w/ Auto Diff CMP Comprehensive Metabolic Panel Consult to Case Management Consult to Dietitian Consult to Physician Consult to Spiritual Care Consult to Licensed Physical Therapy Assistant CRP C-Reactive Protein Diabetes Education (Nursing) Do Not Use Extremity For DVT VTE Prophylaxis Education EC 2D Echo Complete W Bubble Study ESR Sedimentation Rate Auto Fall Risk/Fall Prevention Protocol Folate Level Hemoglobin A1C Intake and Output Lipid Panel Magnesium Level Modified [place] Bedside Swallow Screen Neurological Assessment Neurological Assessment Neurological Assessment NIH Stroke Scale Assessment NIH Stroke Scale Assessment NIH Stroke Scale Assessment Notify Provider Notify Provider of Change in Patient Condition Notify Provider Vital Signs NPO (immediate) OT Evaluation and Treatment Peripheral IV Insertion Peripheral IV Management PT Evaluation and Treatment Resuscitation Status Smoking Cessation Education (Nursing) Speech Language Pathology Evaluation and Treatment Stroke Education (By Discharge) Stroke Education (General) Stroke Quality Measures TSH Thyroid Stimulating Hormone Vital Signs Vital Signs Vital Signs Vitamin B12 Level Weight (Routine) VTE Prophylaxis - Medical No VTE Prophylaxis Orders. Problem List/Past Medical History Ongoing Allergic rhinitis Arthritis Bronchitis Diabetes mellitus type II GERD - Gastro-esophageal reflux disease Hard of hearing High blood pressure History of obstructive sleep apnea Microscopic colitis Prostate cancer Historical No qualifying data Procedure/Surgical History FUSION LUM JT W AUTOL SUB, POST APPR A COL, OPEN (10/02/2020), MONITOR PERIPHERAL NERVOUS ELECTR ACTIVITY, INTRAOP, MATERIAL DISPATCHER (10/02/2020), RESECTION OF LUMBAR VERTEBRAL DISC, OPEN APPROACH (10/02/2020), Appendectomy, Brachytherapy, hand surgery, knee scope, umbilical hernia repair. Home Medications (18) Active allopurinol 300 mg oral tablet 300 mg = 1 Tab, Oral, Daily atenolol-chlorthalidone 100 mg-25 mg oral tablet 1 Tab, Oral, Daily Benadryl 25 mg oral tablet 25 mg = 1 Tab, PRN, Oral, TID docusate 100 mg, Oral, BID DULoxetine 120 mg, Oral, Daily Entocort EC 3 mg oral delayed release capsule 3 mg = 1 Cap, Oral, Daily FiberCon 1 Tab, Oral, Daily Flomax 0.4 mg oral capsule 0.4 mg = 1 Cap, Oral, Daily Flonase 1 [place], Nostrils Both, Daily levothyroxine 50 mcg (0.05 mg) oral tablet 50 mcg = 1 Tab, Oral, Daily Melatonin 5 mg = 1 Tab, PRN, Oral, At Bedtime metFORMIN 500 mg oral tablet 500 mg = 1 Tab, Oral, BID Multiple Vitamins oral tablet 1 Tab, Oral, Daily omeprazole 20 mg, Oral, Daily potassium chloride 20 mEq oral tablet, extended release 20 mEq = 1 Tab, Oral, BID pramipexole 0.25 mg oral tablet 0.25 mg = 1 Tab, Oral, At Bedtime SEROquel 400 mg oral tablet 400 mg = 1 Tab, Oral, BID TriCor 145 mg oral tablet 145 mg = 1 Tab, Oral, Daily Allergies No Known Medication Allergies Social History Alcohol Alcohol Use History No. Use in Last 12 Months: No. Substance Abuse Drug Use Hx: No. Use in Last 12 Months: No. Tobacco Former smoker, quit more than 30 days ago Smoking Status. Never Smokeless Tobacco Status. None Smokeless Tobacco Use History. Last Used: quit in the 80s . Family History HTN Additional Documentation Code Status Start: 04/06/22 16:15:00 EDT, Full Code, Continuous Order documented in this encounter Plan of Treatment Not on file documented as of this encounter Visit Diagnoses Not on filedocumented in this encounter Care Teams Steam Pressure Chamber Operator Relationship Specialty Start Date End Date Mumtaz Larson MD [address] [place] [facility] [address] [place] [id number] PCP - General Family Medicine 08/26/22 documented as of this encounter
--- OUTSIDE RECORDS SUMMARY | 2025-06-16 09:38 | XMS_ITS | Encounter Summary ---
Author Organization [facility] ([place], [place], [place], [place]) Address [address] [place] [address] Care Team Providers Care Reefer Engineer Name Role Phone Mumtaz Larson MD Primary Care Provider + [phone] Encounter Details Date Type Department Care Team (Late st Contact Info) Description 04/06/2022 Transcribed Document [facility] [place] [facility] [address] [place] [address] ProviderGabriel MD [address] [place] [address] Social History Tobacco Use Types Packs/Day Years [...] Date Macario rded Speak language other than [place]at[place] at home Not on file 10/29/2023 Want [...] Conversion Note - Historical Provider, - 04/06/2022 4:18 PM CDT Evaluation, Occupational Therapy Entered On: 04/07/2022 12:09 EDT Performed On: 04/07/2022 11:20 EDT by IGNACIA GONZALEZ OTR/Isaiah General Information, OT Visit Type, OT : Initial evaluation Patient Orders : Order Date Order Ordering MD 04/06/2022 16:18 OT Evaluation and Treatment Ordered By: BLAINE DRAPER MD Active Diagnoses : No Qualifying Diagnoses Admission Date : 04/06/2022 15:42 Personal Devices : Personal Devices No Devices Recorded Assistive Devices : Assistive Devices No Devices Recorded General Information Comment, OT : Myastenia gravis with recent viral minengitis. New onset of symptoms: dysphagia, slurred speech, dyspnea. IGNACIA GONZALEZ OTR/L - 04/07/2022 11:44 EDT General Status Patient Received Status : Supine in bed Treatment Start Time : 04/07/2022 11:20 EDT Patient Left Status : Up in chair, RN/PCT informed, Family/Visitors at bedside, All needs met and within reach Treatment End Time : 04/07/2022 11:40 EDT Treatment Time : 20 Minute(s) Actual Treatment Time : 25 Minute(s) (Comment: 5 min added for chart review as well as collaboration with PT. [IGNACIA GONZALEZ OTR/L - 04/07/2022 11:44 EDT] ) IGNACIA GONZALEZ OTR/L - 04/07/2022 11:44 EDT History and Environment, OT Living Situation, Therapy : Home Patient Lives With : Spouse Persons Providing Information : Patient Home Equipment, Therapy : Shower Equipment Shower Equipment Comment : built in shower bench. Home Setup : Multi-level home Bedroom Location : Upstairs Bathroom #1 Location : Upstairs Bathroom #1 Features : Toilet, Tub Bathroom #2 Features : Toilet, Walk-In shower Stairs : Yes Stair Location(s) : Inside, Outside Stairs Inside Comment : 2 flights of stairs Bedroom is upstairs Entertainment room in basement Outside Stairs, Number of Steps : 2 Railing Outside : Yes Outside Railing Position : Bilateral IGNACIA GONZALEZ OTR/L - 04/07/2022 11:44 EDT Prior LOF Bathing, OT : Independent Prior LOF Bed Mobility : Independent Prior LOF Upper Body Dressing, OT : Independent Prior LOF Lower Body Dressing, OT : Independent Prior LOF Toileting : Independent Prior LOF Transfer : Independent Prior LOF Grooming, OT : Independent Prior LOF for IADLs, OT : Independent IGNACIA GONZALEZ OTR/L - 04/07/2022 11:44 EDT Upper Extremity Right UE Active ROM : WFL Right UE Strength : WFL Left UE Active ROM : WFL Left UE Strength : WFL IGNACIA GONZALEZ OTR/L - 04/07/2022 11:44 EDT Self Care/Home Management, OT Self Feeding Assist Level, OT : Independent, complete Grooming Assist Level, OT : Independent, complete Bathing Assist Level, OT : Supervision or set-up Upper Body Dressing Assist Level, OT : Independent, complete Lower Body Dressing Assist Level, OT : Independent, modified Toileting Assist Level : Supervision or set-up Toilet Transfer Assist Level : Supervision or set-up Shower Transfer Assist Level : Supervision or set-up Tub Transfer Assist Level : Supervision or set-up Bed/Chair/WC Transfer Assist Level : Supervision or set-up Kitchen Mobility Assist Level : Supervision or set-up Simple Meal Prep Assistance Level, OT : Activity does not occur Med Management Assist Level, OT : Independent, complete Money Management Assist Level, OT : Independent, complete IGNACIA GONZALEZ OTR/Isaiah Christian 04/07/2022 11:44 EDT Functional Mobility Mobility Grid Supine to Sit : Rehab Modified independence Sit to Stand : Supervision/set-up Bed to Chair : Supervision/set-up Stand to Sit : Supervision/set-up IGNACIA GONZALEZ OTR/L - 04/07/2022 11:44 EDT Functional MobilityComment : Bed>bathroom with supervision CARLOS MARY BETH/Isaiah - 04/07/2022 11:44 EDT Cognition Assessment, OT Orientation : Oriented x 4 CARLOS MARY BETH/Isaiah - 04/07/2022 11:44 EDT Education OT Occupational Therapy Education Grid Role of Occupational Therapy : Verbalizes understanding CARLOS MARY BETH/Isaiah - 04/07/2022 11:44 EDT Indication Assessment, OT Occupational Therapy Indicated : No Occupational Therapy Not Indicated : At prior level of function GONZALEZ MARY BETH/Isaiah - 04/07/2022 11:44 EDT Plan of Care, OT OT Tx Plan/Goals Established w Patient : No Reason OT Treatment/Plan Not Established : Acute level OT unnecessary at this time. GONZALEZ MARY BETH/Isaiah - 04/07/2022 11:44 EDT Treatment Note Subjective Comment : Pt supine, spouse at bedside. Pt [place] and presents with slurred speech and droopy eyelid on right side. Pt agreeable to therapy eval. Patient's Response to Treatment : Additional Objective Information : OT eval completed. Pt on 2 L nc, AxOx4, BUE ROM and MMT WFL. reports dyspnea limiting activities. Pt completed Supine-sit Tone and stood with supervision. He completed fx mobilty to BR with supervision. Toileting completed in sitting with supervision and pt ambulated to chair. He reports feeling at baseline with ADL's at this time. Pt with all needs met and call light within reach. Assessment : Pt demonstrating independence with ADL's. Spouse and pt in agreeance that pt is at baseline fx with ADL's. Acute level OT services unnecessary at this time. Plan for Treatment : OT to sign off on this day. Please re-consult if status changes. IGNACIA GONZALEZ OTR/Isaiah - 04/07/2022 11:44 EDT Pain Assessment Pain Comment : No reports of pain CARLOS MARY BETH/Isaiah - 04/07/2022 11:44 EDT Image 1 - Images currently included in the form version of this document have not been included in the text rendition version of the form. Anticipated Discharge Needs, OT/PT Anticipated Discharge to : Home, independently IGNACIA GONZALEZ OTR/Isaiah - 04/07/2022 11:[address] [facility] OT Charges OT Selfcare/Hm Mgmt Ea 15 Min : 1 OT Eval Low Complexity : 1 IGNACIA GONZALEZ OTR/Isaiah - 04/07/2022 11:44 EDT Electronically signed by Sherri, [facility] Conversion Cut Order Hand Cerner at 02/01/2023 7:08 PM CDT documented in this encounter Plan of Treatment Not on file documented as of this encounter Visit Diagnoses Not on filedocumented in this encounter Care Teams Reefer Engineer Relationship Specialty Start Date End Date Mumtaz Larson MD [address] [facility] [address] [place] [address] PCP - General Family Medicine 08/26/22 documented as of this encounter
--- OUTSIDE RECORDS SUMMARY | 2025-06-16 09:38 | XMS_ITS | Encounter Summary ---
Author Organization [employer] ([place], [place], [place], [place]) Address [address] [place] [address] Care Team Providers Care Learning Disabilities Teacher Name Role Phone Mumtaz Larson MD Primary Care Provider + [phone] Encounter Details Date Type Department Care Team (Late st Contact Info) Description 04/11/2022 Transcribed Document [facility] [address] [place] [address] ProviderGabriel MD [address] [place] [address] Social History Tobacco Use Types Packs/Day Years [...] Date Macario rded Speak language other than Latvian at home Not on file 10/29/2023 Want [...] Cerner Conversion Note - Historical Provider, - 04/11/2022 11:03 AM CDT Patient: TIEN GARCIA Age: 66 years Sex: Male : 1955 Associated Diagnoses: None Author: TOSHIA JOHNSON APRN REQ: Dr Steele RE: Myesthenia Gravis CC: shortness of breath Basic Information HPI: Pt is a 66 yo man with hx of DM and HTN and recent hx of hospitalization outlying in February with a viral meningitis who presented to outlying facility with reports of week hx of slurred and dysphagia. In addition has had reports of evolving dyspnea. He was evaluated by Neuro since admit with plans for a MRI to evaluate further, acetylcholine receptors sent and started on Mestinon for potential Myasthenia Gravis. Also has orders for Solumedrol and IVIG to be given today. Pt is currently on 2LNC, CT chest pending to evaluate further for Thymoma , we are asked to evaluate further in this patient. Patient also reported some difficulty swallowing over the last few days and generalized weakness by the end of the day. Patient denied any wheezing or chest pain Pt reports he is feeling better today in comparison to yesterday, he had significant dyspnea and reported accessory muscle use which has eased. Does have baseline BRETT with device at home however due to recall has not yet used. PMH: DM, HTN, recent reported viral meningitis, GERD, prostate cancer Social: remote tobacco Family: HTN 04/08: Patient was seen and examined today ptosis of the right eye is worse today. Initially patient stated that his breathing is better but later on patient tried to get out of the bed and became very tachypneic and short of breath, nurse called and I attended to the patient immediately. Spoke with the primary team Dr. Boston due to concern about increased work of breathing and fatigue we will transfer patient to ICU for close and frequent observation. We will continue with Zosyn. Chest x-ray reviewed independently still showing left lower lobe opacity/atelectasis with improvement today. Vital capacity 0.94. NIF was not done. Spoke to RT and will get NIF as well as vital capacity stat now. 04/09: Patient seen on bipap with 60% FiO2. He was transferred to ICU on 04/08 after patient became tachypneic and short of air. RN reports that overnight, patient was dependent on bipap as he is very anxious without it. No other new events per RN. He is hemodynamically stable and afebrile. Serum creatinine stable at 0.8. Corpak present, but patient is not currently receiving TF. Last BM 04/07. He has had 200ml of output documented for overall fluid balance of +956ml. 04/10: Patient remains mostly BiPAP dependent, attempted to wean on BiPAP became becomes very tachypneic. Awake alert. There is of -40, vital capacity 590 mL 04/11: Patient seen and examined on bipap with 50% FiO2. He is awake and alert, and states he is not short of air while on bipap, but otherwise he becomes short of air easily. He is sinus jian, but is otherwise hemodynamically stable and afebrile. NIF today -40, VC on bipap 0.520 and off bipap .390. Patient states he would like to attempt to wear Opti-flow today. He is tolerating current TF via corpak at 20, and H2O @ 50ml/hr. Last Bm 04/07. He has had 1.3L of output for overall fluid balance of +654ml. ICU day: 4 PICC 04/09 Review of Systems Unable to obtain Health Status Allergies: Allergic Reactions (Selected) No Known Medication Allergies, Allergies (1) Active Reaction No Known Medication Allergies None Documented Current medications: (Selected) Inpatient Medications Ordered Ambien: 5 mg, Oral, At Bedtime, PRN: Insomnia Dextrose 50% injection: 12.5 Gram, IV Push, Q15Min, PRN: Other (See Comment) Dextrose 50% injection: 25 Gram, IV Push, Q15Min, PRN: Other (See Comment) Dextrose 50% injection: 25 Gram, IV Push, Q15Min, PRN: Other (See Comment) Dextrose 50% injection: 25 Gram, IV Push, Q15Min, PRN: Other (See Comment) Dulcolax Laxative: 5 mg, Oral, Daily, PRN: Constipation DuoNeb 0.5 mg-2.5 mg/3 mL inhalation solution: 3 mL, Nebulized Inhalation, RT_Q6H, PRN: Shortness of Breath Flomax: 0.4 mg, Oral, Daily Mestinon: 60 mg, Oral, TID Milk of Magnesia 8% oral suspension: 30 mL, Oral, Daily, PRN: Constipation Normal Saline Flush: 10 mL, IV Push, Q12H Normal Saline Flush: 10 mL, IV Push, See Comment, PRN: IV Use Normal Saline Flush: 10 mL, IntraCATHeter, Q12H Pepcid: 20 mg, IV Push, BID Roxicodone: 5 mg, Oral, Q4H, PRN: Pain (Moderate 4-6) SEROquel: 400 mg, Oral, BID SOLU-Medrol: 500 mg, 50 mL/Hr, IV Piggyback, BID Serax: 10 mg, Oral, BID Sodium Chloride 0.9% intravenous solution 1,000 mL: 50 mL/Hr, IntraVENous Tenormin: 100 mg, Oral, Daily TriCor 145 mg oral tablet: 145 mg, 1 Tab, Oral, Daily Tylenol: 650 mg, Oral, Q4H, PRN: Pain (Mild 1-3) Zofran: 4 mg, IV Push, Q4H, PRN: Nausea Zosyn + Sodium Chloride 0.9% intravenous solution 100 mL: 3.375 Gram, 33.33 mL/Hr, IV Piggyback, Q6HInt alteplase + sterile water 1 mL: 1 mg, 60 mL/Hr, IntraCATHeter, 1-Time, PRN: Other (See Comment) chlorthalidone: 25 mg, Oral, Daily docusate sodium: 100 mg, Oral, BID glucagon: 1 mg, IntraMuscular, Q15Min, PRN: Other (See Comment) glucose 4 g oral tablet, chewable: 16 Gram, 4 Tab, Chew, Q15Min, PRN: Other (See Comment) glucose 40% oral gel: 15 Gram, 37.5 mL, Oral, Q15Min, PRN: Other (See Comment) heparin: 5,000 Units, SubCutaneous, Q8H hydrALAZINE: 10 mg, IV Push, Q6H, PRN: Hypertension immune globulin intravenous: 40 Gram, 400 mL, 100 mL/Hr, IV Piggyback, Daily insulin regular sliding scale: Scale C, SubCutaneous, Q6H labetalol: 10 mg, IV Push, Q1H, PRN: Other (See Comment) levothyroxine: 50 mcg, Oral, Daily pramipexole: 0.25 mg, Oral, At Bedtime predniSONE: 60 mg, Oral, Daily senna: 8.8 mg, Oral, BID Documented Medications Documented Benadryl 25 mg oral tablet: 1 Tab, Oral, TID, PRN: Allergies, 0 Refill(s) Cymbalta 60 mg oral delayed release capsule: 2 Cap, Oral, Daily, (do not crush or chew), 30 Cap, 0 Refill(s) Entocort EC 3 mg oral delayed release capsule: 3 Cap, Oral, Daily, 0 Refill(s) Flomax 0.4 mg oral capsule: 1 Cap, Oral, Daily, 0 Refill(s) Flonase: 1 [place], Nostrils Both, Daily, 0 Refill(s) MetFORMIN (Eqv-Glucophage XR) 500 mg oral tablet, extended release: 1 Tab, Oral, Daily, 0 Refill(s) PriLOSEC 20 mg oral delayed release capsule: 1 Cap, Oral, Daily, before a meal, 30 Cap, 0 Refill(s) QUEtiapine 400 mg oral tablet: 0.5 Tab, Oral, BID, 180 Tab, 0 Refill(s) TriCor 145 mg oral tablet: 1 Tab, Oral, Daily, 0 Refill(s) allopurinol 300 mg oral tablet: 1 Tab, Oral, Daily, 0 Refill(s) atenolol-chlorthalidone 100 mg-25 mg oral tablet: 1 Tab, Oral, Daily, 30 Tab, 0 Refill(s) levothyroxine 50 mcg (0.05 mg) oral tablet: 1 Tab, Oral, Daily, 0 Refill(s) potassium chloride 20 mEq oral tablet, extended release: 1 Tab, Oral, BID, 0 Refill(s) pramipexole 0.25 mg oral tablet: 1 Tab, Oral, At Bedtime, 0 Refill(s), Medications (39) Active Scheduled: (20) #NaCl 0.9% *FLUSH* inj 10 mL 10 mL, IV Push, Q12H #NaCl 0.9% *FLUSH* inj 10 mL 10 mL, IntraCATHeter, Q12H atenolol 50 mg tab 100 mg 2 Tab, Oral, Daily chlorthalidone 25 mg tab 25 mg 1 Tab, Oral, Daily docusate sod 100 mg/10 mL liq 100 mg 10 mL, Oral, BID famotidine 20 mg/2 mL inj 20 mg 2 mL, IV Push, BID fenofibrate 145 mg tab 145 mg 1 Tab, Oral, Daily heparin 5,000 units/1 mL inj 5,000 Units 1 mL, SubCutaneous, Q8H immune globulin (Octagam) 40 Gram 400 mL, IV Piggyback, Daily insulin regular 1 unit/0.01 mL inj 3mL Scale C, SubCutaneous, Q6H levothyroxine 50 mcg tab 50 mcg 1 Tab, Oral, Daily methylPREDNISolone succinate 500 mg, IV Piggyback, BID oxazepam 10 mg cap 10 mg 1 Cap, Oral, BID piperacillin-tazobactam + NaCl 0.9% 100 mL 3.375 Gram, IV Piggyback, Q6HInt pramipexole 0.25 mg tab 0.25 mg 1 Tab, Oral, At Bedtime predniSONE 20 mg tab 60 mg 3 Tab, Oral, Daily pyridostigmine 60 mg/5 mL liq 60 mg 5 mL, Oral, TID QUEtiapine 200 mg tab 400 mg 2 Tab, Oral, BID senna 8.8 mg/5 mL liq 8.8 mg 5 mL, Oral, BID tamsulosin CR 0.4 mg cap 0.4 mg 1 Cap, Oral, Daily Continuous: (1) NaCl 0.9% 1,000 mL 1,000 mL, IntraVENous, 50 mL/Hr PRN: (18) #NaCl 0.9% *FLUSH* inj 10 mL 10 mL, IV Push, See Comment acetaminophen 325 mg tab 650 mg 2 Tab, Oral, Q4H albuterol-ipratropium inh 3 mL 3 mL, Nebulized Inhalation, RT_Q6H alteplase + sterile water 1 mL 1 mg, IntraCATHeter, 1-Time bisacodyl EC 5 mg tab 5 mg 1 Tab, Oral, Daily dextrose 50% 25 g/50 mL inj syr 25 Gram 50 mL, IV Push, Q15Min dextrose 50% 25 g/50 mL inj syr 25 Gram 50 mL, IV Push, Q15Min dextrose 50% 25 g/50 mL inj syr 25 Gram 50 mL, IV Push, Q15Min dextrose 50% 25 g/50 mL inj syr 12.5 Gram 25 mL, IV Push, Q15Min glucagon 1 mg/1 mL inj 1 mg 1 mL, IntraMuscular, Q15Min glucose 4 g tab 16 Gram 4 Tab, Chew, Q15Min glucose 40% gel 15 g 15 Gram 37.5 mL, Oral, Q15Min hydrALAZINE 20 mg/1 mL inj 10 mg 0.5 mL, IV Push, Q6H labetalol 100 mg/20 mL inj 10 mg 2 mL, IV Push, Q1H magnesium hydroxide 8% liq 30 mL 30 mL, Oral, Daily ondansetron 4 mg/2 mL inj 4 mg 2 mL, IV Push, Q4H oxyCODONE 5 mg tab 5 mg 1 Tab, Oral, Q4H zolpidem 5 mg tab 5 mg 1 Tab, Oral, At Bedtime Problem list: All Problems Microscopic colitis / SNOMED CT 764204575 / Confirmed Prostate cancer / SNOMED CT 5606555631 / Confirmed History of obstructive sleep apnea / IMO 18844686 / Confirmed High blood pressure / SNOMED CT 88274456 / Confirmed Hard of hearing / SNOMED CT 512077882 / Confirmed GERD - Gastro-esophageal reflux disease / SNOMED CT 7770318835 / Confirmed Diabetes mellitus type II / SNOMED CT 03256701 / Confirmed Bronchitis / SNOMED CT 72766439 / Confirmed Arthritis / SNOMED CT 6716204 / Confirmed Allergic rhinitis / SNOMED CT 917469248 / Confirmed, Active Problems (10) Allergic rhinitis Arthritis Bronchitis Diabetes mellitus type II GERD - Gastro-esophageal reflux disease Hard of hearing High blood pressure History of obstructive sleep apnea Microscopic colitis Prostate cancer Physical Examination VS/Measurements Vitals Signs (last 24 hrs) Last Charted Minimum Maximum Mon HR 68 (APR 11 09:27) 40 (APR 11 07:03) 88 (APR 10 15:00) Resp Rate H 49 (APR 11 09:27) 17 (APR 10 16:01) H 52 (APR 10 23:00) SBP 128 (APR 11 09:00) 112 (APR 10 22:00) H 154 (APR 11 01:00) DBP 77 (APR 11 09:00) 64 (APR 11 06:00) 81 (APR 11 01:30) MAP 97 (APR 11 09:00) 87 (APR 10 22:00) 105 (APR 11 01:30) SpO2 95 (APR 11 09:27) L 92 (APR 11 01:30) 97 (APR 10 20:00) Intake & Output Totals Last 24 Hours (7a-7a) Intake (79 Events) Medications (1549.5 mL) Enteral Additional Water Given (80 mL) Enteral Feeding Amount (420 mL) Output (7 Events) Varela Catheter (1395 mL) Input Total: 2049.5 mL Output Total: 1395 mL Balance: 654.5 mL General: Moderate distress, On bipap with 50%. Eye: Pupils are equal, round and reactive to light, Normal conjunctiva, R eye droopiness. HENT: Normocephalic, Oral mucosa is moist. Neck: Supple, No lymphadenopathy. Respiratory: dec bilateral bases, intermit accessory muscle use/abdominal use. Cardiovascular: Normal rate, Regular rhythm, No edema. Gastrointestinal: Soft, Non-tender, Non-distended, Normal bowel sounds. Genitourinary: Support: Urinary catheter ( Indwelling ). Integumentary: Warm, Dry, [place]. Neurologic: Alert, Oriented, Anxious when not on bipap . Psychiatric: Cooperative, Appropriate mood & affect. Review / Management Results review: Labs (Last four charted values) WBC 5.2 (APR 11) 7.2 (MAR 24) 8.8 (APR 09) 7.0 (APR 08) HB L 12.9 (VERO 25) L 12.6 (VERO 24) 14.8 (VERO 23) 17.1 (VERO 22) HCT L 39.6 (VERO 25) L 38.5 (VERO 24) 43.9 (VERO 23) 50.8 (VERO 22) Plt L 161 (VERO 25) 235 (VERO 24) 326 (VERO 23) 356 (VERO 22) Na 144 (VERO 25) H 147 (VERO 24) 144 (VERO 23) 138 (VERO 22) K L 3.3 (MAR 25) L 3.0 (VERO 24) 3.6 (VERO 23) L 3.4 (VERO 22) Cl 109 (VERO 25) H 115 (VERO 24) 109 (VERO 23) 107 (VERO 22) CO2 32 (VERO 25) 29 (VERO 24) 31 (VERO 23) 22 (VERO 22) BUN H 26 (VERO 25) H 25 (VERO 24) 22 (VERO 23) 17 (VERO 22) Cr 0.80 (VERO 25) L 0.60 (VERO 24) 0.80 (VERO 23) 0.70 (VERO 22) Glu R H 163 (VERO 25) H 152 (VERO 24) H 167 (VERO 23) H 167 (VERO 22) Ca 8.6 (VERO 25) L 8.2 (VERO 24) 9.0 (VERO 23) 9.1 (VERO 22) AST H 224 (VERO 25) H 129 (VERO 24) H 39 (VERO 22) 26 (VERO 20) ALT H 367 (VERO 25) H 179 (VERO 24) 49 (VERO 22) 31 (VERO 20) ALK P 55 (VERO 25) 53 (VERO 24) 73 (VERO 22) 64 (VERO 20) T Bili H 1.5 (VERO 25) 0.8 (VERO 24) 1.1 (VERO 22) 0.7 (VERO 20) PTN 6.8 (VERO 25) 6.4 (VERO 24) 7.7 (VERO 22) 8.0 (VERO 20) ALB L 2.7 (VERO 25) L 2.7 (VERO 24) 3.7 (VERO 22) 4.4 (VERO 20) . APR 09 06:59 144 109 22 / H 167 3.6 31 0.80 \ VERO 23 06:59 \ 14.8 / 8.8 326 / 43.9 \ Blood Gases (Current Encounter/Past 24 Hours) pH Art 7.50 HI 04/11/2022 08:00 pCO2 Art 38.8 04/11/2022 07:46 pO2 Art 62.3 LOW 04/11/2022 08:00 HCO3 Art 30.5 HI 04/11/2022 08:00 BE Art 6.9 HI 04/11/2022 08:00 sO2 Art 94.0 LOW 04/11/2022 08:00 tHb Art 13.8 04/11/2022 07:46 FHHb 5.9 NA 04/11/2022 07:46 ctO2 17.9 NA 04/11/2022 07:46 FIO2 Art 50 NA 04/11/2022 07:46 Delivery Device Type Art Non-Invasive Ventilation 04/11/2022 07:43 Temperature, F Art 98.6 NA 04/11/2022 07:46 Art Blood Gas (ABG) Site Right Radial 04/11/2022 07:43 Acceptable Arturo's Test Art Acceptable 04/11/2022 07:43 Ventilator Mode Art N/A NA 04/11/2022 07:46 Set Rate Art 16.0 NA 04/11/2022 07:43 Respiratory Rate Art 21.0 NA 04/11/2022 07:43 Comment Art bipap 16/8 NA 04/11/2022 07:43 ABG Num of Draw Attempts 1 NA 04/11/2022 07:43 PaO2/FiO2 calculated 125 NA 04/11/2022 07:46 Radiology Results (Last 48 hours) [id number] -- 04/06/2022 15:42 CR Chest 1 Vw Portable (04/09/2022 12:36) Result: PORTABLE CHEST 04/09/2022 11:25 AM HISTORY: Line placement.COMPARISON: Previous day.FINDINGS: Interval placement of a left-sided PICC line with the tipterminating in the SVC. There is a feeding tube identified with its tipcoursing below the diaphragm. The heart is normal in size . Themediastinum is unremarkable . There is bibasilar atelectasis and smallto moderate pleural effusions. There is no pneumothorax . The osseousstructures are unremarkable .IMPRESSION: Bibasilar atelectasis with small to moderate pleuraleffusions.Images reviewed, interpreted, and dictated by Dr. Sherif Chavis.Transcribed by Jenaro Day PA-C.I have personally viewed, interpreted and dictated the examination. Ihave read and agree with the above final transcribed report. CT Chest WO W (04/09/2022 15:09) Result: CT SCAN OF THE CHEST WITH CONTRAST 04/09/2022 10:19 AM HISTORY: Lung mass, evaluate for thymoma.COMPARISON: None .PROCEDURE: The patient was injected with IV contrast. Precontrast imageswere also obtained. Axial images were obtained from the lung apex to themid abdomen by computed tomography. This study was performed withtechniques to keep radiation doses as low as reasonably achievable,(ALARA). Individualized dose reduction techniques using automatedexposure control or adjustment of mA and/or kV according to the patientsize were employed.FINDINGS: CHEST: There is no axillary adenopathy. There is no hilar or mediastinaladenopathy. Heart size is mildly enlarged. There is a small pericardialeffusion. There is no pleural effusion. An NG tube tip terminates belowthe diaphragm. A left-sided PICC tip terminates centrally. Limitedimages of the upper abdomen show the gallbladder to be contracted. Thereis marked bibasilar consolidation.IMPRESSION: Marked bibasilar consolidation. Follow-up to resolution isrecommended.Images reviewed, interpreted, and dictated by Dr. Bassam Hernández.Transcribed by Aurelia Mena PA-C.I have personally viewed, interpreted and dictated the examination. Ihave read and agree with the above final transcribed report. CR Chest 1 Vw Portable (04/10/2022 06:55) Result: PORTABLE CHEST 04/10/2022 4:00 AM HISTORY: Acute shortness of breath.COMPARISON: Previous day .FINDINGS: The heart is stable in size. The lung grewal demonstrate nosignificant change in the hypoinflation of the lungs with bibasilaropacities. There is no pneumothorax. The support devices are in goodposition.IMPRESSION: There has been no significant interval change .Continued follow-up recommended.Images reviewed, interpreted, and dictated by Dr. Bassam Hernández.Transcribed by MIK Webb have personally viewed, interpreted and dictated the examination. Ihave read and agree with the above final transcribed report. CR Chest 1 Vw Portable (04/11/2022 04:21) Result: CHEST SINGLE VIEWCOMPARISON: Chest from 10 April 2022.HISTORY: Pneumonia.FINDINGS: Cardiac silhouette is mildly to moderately enlarged. Left PICCtip resides in the SVC.Lungs are underinflated. Small to moderate effusions and bibasilaratelectasis is present.IMPRESSION:1. Stable bilateral effusions and overlying atelectasis.Images reviewed, interpreted, and dictated by Sherif Chavis MD Mechanics 04/08 NIFs -40 x 3 with VC 1.1, .8, .91 04/07 1700 -10 x3 and VC 1.13, 1.46, 1. 5 04/10 NIF -40, VC .590 04/11 NIF -40, VC .390 Impression and Plan Pulmonary Acute Respiratory Failure, hypoxemic in setting of neuromuscular issues, being evaluated for Myasthenia Gravis Left lower lobe opacity. Pneumonia in the left lower lobe can not be excluded. BRETT history CT chest with contrast 04/09: marked bibasilar consolidation Neuro Neuromuscular issues being evaluated for Myasthenia Gravis. Myasthenia gravis crisis Dysphagia and difficulty with speech/tongue movements Recent admit outlying and treatment for viral meningitis reported CT from outlying report on chart reports small bilateral basal ganglia lacunar infarcts, believed to be chronic on 04/04-defer to neurology ID Leukocytosis, improving Recent treatment viral meningitis. Cardiac HTN Echo 04/07: EF 65%, small posterior pericardial effusion Endocrine DM Plan Supplemental o2 as needed keep sats 92-96%, currently bipap dependent due to anxiety with increased work of breathing Continue with mechanics (NIF and vital capacity) Q 8 H Precedex for goal RASS 0, currently off Serax 10mg PO BID On Seroquel (home med) CT chest as noted above Keep HOB elevated Neuro following MRI pending (patient is currently unable to tolerate laying flat) Acetylcholine switchboard receptionist studies pending On Mestinon Also receiving Solumedrol and IVIG Glycemic control: on correction insulin, target glucose 140-180 mg/dL Prophylaxis: Heparin and Pepcid Nutrition: TF via corpak (terminates in stomach), may increase TF to 30ml/hr today Also on free water at 50ml/hr On bowel reg, will give suppository today At risk for respiratory complications AM orders placed CODE STATUS: FULL CODE Disposition: ICU Electronically signed by Sherri, [facility] Conversion Social Media Marketer [employer]ner at 02/01/2023 7:04 PM CDT documented in this encounter Plan of Treatment Not on file documented as of this encounter Visit Diagnoses Not on filedocumented in this encounter Care Teams Learning Disabilities Teacher Relationship Specialty Start Date End Date Mumtaz Larson MD [address] [place] [facility] [address] [place] [id number] PCP - General Family Medicine 08/26/22 documented as of this encounter
--- OUTSIDE RECORDS SUMMARY | 2025-06-16 09:38 | XMS_ITS | Encounter Summary ---
Author Organization [email or web address] ([place], [place], [place], [place]) Address [address] [place] [address] Care Team Providers Care Corporate Strategy Associate Name Role Phone Mumtaz Larson MD Primary Care Provider + [phone] Encounter Details Date Type Department Care Team (Late st Contact Info) Description 04/06/2022 Transcribed Document [facility] [place] Family Medicine [address] [place] [address] ProviderGabriel MD [address] [place] [address] Social History Tobacco Use Types Packs/Day Years [...] Date Macario rded Speak language other than Equatorial Guinean at home Not on file 10/29/2023 Want [...] Provider, - 04/06/2022 4:18 PM CDT Evaluation, Physical Therapy Entered On: 04/07/2022 15:04 EDT Performed On: 04/07/2022 14:56 EDT by KAROLYN PARHAM PT General Information, PT Visit Type, PT : Initial evaluation Patient Orders : Order Date Order Ordering MD 04/06/2022 16:18 PT Evaluation and Treatment Ordered By: BLAINE DRAPER MD Active Diagnoses : No Qualifying Diagnoses Therapy Diagnosis, PT : Decreased strength and endurance s/p admit with dysphagia and slurred speech. Onset of Problem, PT : 04/07/2022 EDT Admission Date : 04/06/2022 15:42 Co-treated by, PT : Occupational Therapist Personal Devices : Personal Devices No Devices Recorded Assistive Devices : Assistive Devices No Devices Recorded General Information Comment, PT : 66 y/o male s/p admit with dysphagia and slurred speech x 1 week. Recent viral meningitis. KAROLYN PARHAM, PT - 04/07/2022 14:56 EDT General Status Patient Received Status : Supine in bed Treatment Start Time : 04/07/2022 11:20 EDT Patient Left Status : Up in chair, All needs met and within reach Treatment End Time : 04/07/2022 11:40 EDT Treatment Time : 20 Minute(s) Actual Treatment Time : 25 Minute(s) (Comment: 5 minutes taken for chart review and collaboration with nursing concerning patient's SOB. [KAROLYN PARHAM, PT - 04/07/2022 14:56 EDT] ) KAROLYN PARHAM, PT - 04/07/2022 14:56 EDT History and Environment Living Situation, Therapy : Home Patient Lives With : Spouse Professional Skilled Services : None Persons Providing Information : Patient Home Equipment Therapy, PT : None Home Setup : Multi-level home Bedroom Location [...] : Yes Outside Railing Position : Bilateral KAROLYN PARHAM PT - 04/07/2022 14:56 EDT Prior Level of Function PT GRID Prior LOF Ambulation, Household : Independent Prior LOF Ambulation, Community : Independent Prior LOF Bed Mobility : Independent Prior LOF Toileting : Independent Prior LOF Transfer : Independent KAROLYN PARHAM PT - 04/07/2022 14:56 EDT Prior LOF Assist with ADL Comment : Independent KAROLYN PARHAM PT - 04/07/2022 14:56 EDT Upper Extremity Right UE Active ROM : WFL Right UE Strength : Impaired Left UE Active ROM : WFL Left UE Strength : Impaired Right UE Strength : Impaired Left UE Strength : Impaired KAROLYN PARHAM PT - 04/07/2022 14:56 EDT Lower Extremity RLE Active ROM : WFL Right LE Strength : WFL LLE Active ROM : WFL Left LE Strength : WFL KAROLYN PARHAM PT - 04/07/2022 14:56 EDT Functional Mobility Mobility Grid Bed Roll Left : Supervision/set-up Bed Scooting : Supervision/set-up Supine to Sit : Supervision/set-up Sit to Stand : Supervision/set-up Stand to Sit : Supervision/set-up KAROLYN PARHAM PT - 04/07/2022 14:56 EDT Gait Training/Assessment, PT Weight Bearing Status : Full Gait Assistance Level : Supervision Walking Distance : From EOB to bathroom and back to recliner. KAROLYN PARHAM PT - 04/07/2022 14:56 EDT Neurological/Sensory Overall Sensory Response : Impaired Overall Sensory Response Comment : Pt has new onset of dysphagia, decreased sensation in tongue, right ptosis Response to Pain : Intact Response to Pain Comment : Patient has no complaints of pain KAROLYN PARHAM PT - 04/07/2022 14:56 EDT Activity Tolerance, PT Activity Comment : Good, but patient has been experiencing new onset of SOB KAROLYN PARHAM, PT - 04/07/2022 15:05 EDT Cognition Assessment, PT Orientation : Oriented x 4 Attention Assessment : Present KAROLYN PARHAM, PT - 04/07/2022 15:05 EDT Edu Topics Physical Therapy Education Grid Role of Physical Therapy : Verbalizes understanding, Returns demonstration KAROLYN PARHAM, PT - 04/07/2022 15:05 EDT Indication Assesessment, PT Physical Therapy Indicated : Yes PT Problem List : Impaired, endurance tolerance, Impaired, gait, Impaired, strength, Impaired, transfers Potential Barriers To Therapy : Acuity of Illness Rehabilitation Potential : KAROLYN Hung, PT - 04/07/2022 15:05 EDT Plan of Care, PT PT Tx Plan/Goals Established w Patient : Yes PT Frequency Rehab : Daily PT Duration Rehab : Fourteen days PT Treatments Planned : Gait training, Neuromuscular reeducation, Safety education, Stair training, Therapeutic exercises, Transfer training KAROLYN PARHAM, PT - 04/07/2022 15:05 EDT Short Term Goals Transfer STG Grid Goal #1 Destination : Chair, with arms Type : Other: step-to Assist : Independent, complete Date to Meet : 04/14/2022 EDT Goal Status : Intial Goal KAROLYN PARHAM, PT - 04/07/2022 15:05 EDT Ambulation STG Grid Goal #1 Device : Other: TBD Distance : 200' Assist : Supervision or set-up Date to Meet : 04/14/2022 EDT Goal Status : Intial Goal KAROLYN PARHAM, PT - 04/07/2022 15:05 EDT Stairs STG Grid Goal #1 Device : None Number of Steps : 6 Handrail(s) : One handrail Assist : Assist, minimal Date to Meet : 04/14/2022 EDT Goal Status : Initial goal KAROLYN PARHAM, PT - 04/07/2022 15:05 EDT Fpc Goals Ambulation LTG Grid Goal #1 Device : None Distance : 300' Assist : Independent, complete Date to Meet : 04/21/2022 EDT Goal Status : Intial Goal KAROLYN PARHAM PT - 04/07/2022 15:05 EDT Stairs LTG Grid Goal #1 Device : None Number of Steps : 12 Handrail(s) : One handrail Assist : Independent, complete Date to Meet : 04/21/2022 EDT Goal Status : Intial Goal PRASAD KAROLYN, PT - 04/07/2022 15:05 EDT Treatment Note Subjective Comment : Patient supine; has continued slurred speech, dysphagia (NPO), and right eye ptosis. Agrees to PT/OT evaluation. No c/o of pain. Patient's Response to Treatment : Stable, good effort Additional Objective Information : Patient supine to sit, SBA x 1. Pt ambulated to bathroom, SBA without AD. Pt independent in bathroom. Pt ambulated back to recliner and transferred into chair. Patient has WFL's AROM and strength bilateral LE's. Assessment : Patient would benefit from skilled PT during acute care stay to address general strength and endurance deficits from immobility; has 3 story home and was independent prior to admit. Plan for Treatment : Per POC KAROLYN PARHAM, PT - 04/07/2022 15:05 EDT Pain Assessment Pain Scaled Used : 0-10 Pain scale Pain Score Pre-Intervention : 0 Pain Score Post-Intervention. : 0 KAROLYN PARHAM, PT - 04/07/2022 15:05 EDT Image 1 - Images currently included in the form version of this document have not been included in the text rendition version of the form. Anticipated Discharge Needs, OT/PT Anticipated Discharge to : Home, with family care KAROLYN PARHAM PT - 04/07/2022 15:05 EDT [place] PT Charges PT Ther Activities Ea 15 Min : 1 PT Eval Moderate Complexity : 1 KAROLYN PARHAM PT - 04/07/2022 15:05 EDT Electronically signed by [facility] [employer] [facility] Conversion Baggage Agent Supervisor Cerner at 02/01/2023 6:53 PM CDT documented in this encounter Plan of Treatment Not on file documented as of this encounter Visit Diagnoses Not on filedocumented in this encounter Care Teams Corporate Strategy Associate Relationship Specialty Start Date End Date Mumtaz Larson MD [address] [facility] [address] [place] [address] PCP - General Family Medicine 08/26/22 documented as of this encounter
--- OUTSIDE RECORDS SUMMARY | 2025-06-16 09:38 | XMS_ITS | Encounter Summary ---
Author Organization [employer] ([place], [place], [place], [place]) Address [address] [place] [address] Care Team Providers Care Bag Making Machine Operator Name Role Phone Mumtaz Larson MD Primary Care Provider + [phone] Encounter Details Date Type Department Care Team (Late st Contact Info) Description 04/06/2022 Transcribed Document [facility] [place] Family Medicine [address] [place] [address] ProviderGabriel MD [address] [place] [address] Social History Tobacco Use Types Packs/Day Years [...] Date Macario rded Speak language other than Tongan at home Not on file 10/29/2023 Want [...] Historical Provider, - 04/06/2022 4:18 PM CDT Consult Phone Call Documentation Entered On: 04/06/2022 16:20 EDT Performed On: 04/06/2022 16:18 EDT by BALTAZAR CARLOS Phone Call for Consults Consult, Additional Information : called Neurology on 04/06/2022 BALTAZAR CARLOS - 04/06/2022 16:19 EDT documented in this encounter Plan of Treatment Not on file documented as of this encounter Visit Diagnoses Not on filedocumented in this encounter Care Teams Bag Making Machine Operator Relationship Specialty Start Date End Date Mumtaz Larson MD [address] [place] [facility] [address] [place] [id number] PCP - General Family Medicine 08/26/22 documented as of this encounter
--- OUTSIDE RECORDS SUMMARY | 2025-06-16 09:38 | XMS_ITS | Encounter Summary ---
Author Organization [employer] ([place], [place], [place], [place]) Address [address] [place] [address] Care Team Providers Care Work Car Operator Name Role Phone Mumtaz Larson MD Primary Care Provider + [phone] Encounter Details Date Type Department Care Team (Late st Contact Info) Description 04/11/2022 Transcribed Document [facility] [place] [address] [place] [address] ProviderGabriel MD [address] [place] [address] Social History Tobacco Use Types Packs/Day Years [...] Date Macario rded Speak language other than [place] Island[place] at home Not on file 10/29/2023 Want [...] Conversion Note - Historical Provider, - 04/11/2022 12:01 PM CDT Clinical Dietitian Note Entered On: 04/11/2022 12:01 EDT Performed On: 04/11/2022 12:01 EDT by Vickie James Dietitijayy Clinical Dietitian Note Clinical Dietitian Note : 04/11: RD check on. Pt requiring continuous bipap, may attempt optiflow today. +corpak in stomach, attempted to advance in IR this week w/ difficulty. TF running @ 20 ml/hr currently, spoke w/ pulmonary MD. Ok w/ advancing to 30 ml/hr. Notified RN. Est nutrient needs: 8383-6202 kcals (MSJ *1.2AF), 85-105g pro (0.8-1.0 g/kg) Dietitian Recommendations : 1. Increase Glucerna 1.5 @ 30ml/hr. Once corpak is post-pyloric, AAT to goal rate of 65ml/hr (2145 kcals, 118g pro). FW per MD. Goal: meet est needs 2. If unable to advance corpak, consider modifying to TwoCal HN to run at a lower rate Goal: decrease risk of aspiration 3. If feasible, advance diet per FIELD CROPS HARVEST MACHINE OPERATOR and MD + 60g CHO restriction. RD to assess for supplements Goal: tolerate PO diet advancement 4. Monitor weight 1-2x weekly Goal: prevent unintentional wt changes 5. Optimize glucose level and adjust insulin PRN Goal: glu 70-180 6. Monitor for BM, on bowel regimen Goal: normalize BM High nutrition risk Vickie James, Dietitian - 04/11/2022 12:01 EDT Electronically signed by Lizabeth Polanco Conversion Doggy Daycare Activities Director Cerner at 02/01/2023 6:57 PM CDT documented in this encounter Plan of Treatment Not on file documented as of this encounter Visit Diagnoses Not on filedocumented in this encounter Care Teams Work Car Operator Relationship Specialty Start Date End Date Mumtaz Larson MD [address] [place] [facility] [address] [place] [address] PCP - General Family Medicine 08/26/22 documented as of this encounter
--- OUTSIDE RECORDS SUMMARY | 2025-06-16 09:38 | XMS_ITS | Encounter Summary ---
Author Organization [employer] ([place], [place], [place], [place]) Address [address] [place] [address] Care Team Providers Care Ballistic Expert Name Role Phone Mumtaz Larson MD Primary Care Provider + [phone] Encounter Details Date Type Department Care Team (Late st Contact Info) Description 04/06/2022 Transcribed Document [facility] [place] Family Medicine [address] [place] [address] ProviderGabriel MD [address] [place] [address] Social History Tobacco Use Types Packs/Day Years [...] Date Macario rded Speak language other than Tristanian at home Not on file 10/29/2023 Want [...] Conversion Note - Historical Provider, - 04/06/2022 3:42 PM CDT Meds to Bed Enrollment Entered On: 04/07/2022 10:28 EDT Performed On: 04/06/2022 15:42 EDT by Reggie Reynoso [employer] Lookout Cert Lead Meds to Bed Enrollment Patient Enrollment Decision: : Yes/enroll in meds to bed program Reggie Reynoso [employer] Cert Lead - 04/07/2022 10:28 EDT Electronically signed by Sherri [facility] Conversion Breaker Oiler Cerner at 02/01/2023 6:49 PM CDT documented in this encounter Plan of Treatment Not on file documented as of this encounter Visit Diagnoses Not on filedocumented in this encounter Care Teams Ballistic Expert Relationship Specialty Start Date End Date Mumtaz Larson MD [address] [facility] [address] [place] [phone] PCP - General Family Medicine 08/26/22 documented as of this encounter
--- OUTSIDE RECORDS SUMMARY | 2025-06-16 09:38 | XMS_ITS | Encounter Summary ---
Author Organization [employer] ([place], [place], [place], [place]) Address [address] [place] [address] Care Team Providers Care Field Crop Farm Worker Name Role Phone Mumtaz Larson MD Primary Care Provider + [phone] Encounter Details Date Type Department Care Team (Late st Contact Info) Description 04/06/2022 Transcribed Document [facility] [place] [address] [place] [address] ProviderGabriel MD [address] [place] [address] Social History Tobacco Use Types Packs/Day Years [...] Date Macario rded Speak language other than Cypriot at home Not on file 10/29/2023 Want [...] as of this encounter Miscellaneous Notes * Brant Conversion Note - Historical ProviderMD - 04/06/2022 4:49 PM CDT Swallow Evaluation Entered On: 04/07/2022 10:32 EDT Performed On: 04/07/2022 10:06 EDT by HOUSTON MCNEIL SLP General Information Visit Type, SITE SURVEYOR : Initial evaluation Patient Orders : SITE SURVEYOR Bedside Swallow Evaluation -111 Start: 04/06/22 16:49:00 EDT, Routine, For Swallow Eval and Treat - SRAVAN HIDALGO MD-TEETEE Speech Language Pathology Evaluation and Treatment - Start: 04/06/22 16:18:00 EDT, Routine, For Speech Language Cognitive Eval and Treat -111 BLAINE DRAPER MD Admission Date : Admission Date/Time: 04/06/22 15:42:00 Medical Chart Reviewed, SITE SURVEYOR : Yes Personal Devices : Personal Devices No Devices Recorded Assistive Devices : Assistive Devices No Devices Recorded Active Diagnoses : No Qualifying Diagnoses Therapy Diagnosis, SITE SURVEYOR : Pt presents with overt oropharyngeal patterns. Recommendations: 1. Moist swabs only 2. Follow for re-eval as appropriate Previous Swallow Precautions : No previous ST in EMR Diet/Intake Prior to Current Admission : Regular/thin Diet/Intake During Current Admission : NPO Intubation Comment, SITE SURVEYOR : n/a Vital Signs RTF : Vitals Temp BP Pulse RR SpO2 FIO2 Date Wt(kg) Wt(lb) 04/07 05:59 ---- 176/112 --- -- 92 2.0L/m 04/06 104.1 229 04/07 05:45 ---- ----- --- 19 --- --- 04/07 03:09 ---- 153/104 --- 18 96 2.0L/m 04/06 20:27 ---- 150/95 --- -- 94 2.0L/m 06/20 20:15 ---- ----- --- 19 --- --- 24 Hr Tmax: No Data Available 36 Hr Tmax: No Data Available Vital Signs are the last 5 in the past 48 hours. Weights display the last 5 within 7 days. Initial Wt: 04/06 104.1 kg 229 lb Respiratory Assessment Comment : n/a HOUSTON MCNEIL, [place] - 04/07/2022 10:06 EDT General Status Patient Received Status, SITE SURVEYOR : Long sitting in bed Treatment Start Time, SITE SURVEYOR : 04/07/2022 8:45 EDT Patient Left Status, SITE SURVEYOR : Long sitting in bed Treatment End Time, SITE SURVEYOR : 04/07/2022 9:10 EDT Treatment Time, SITE SURVEYOR : 25 Minute(s) HOUSTON MCNEIL SLP - 04/07/2022 10:06 EDT Pain Assessment Pain Scaled Used : 0-10 Pain scale Pain Score Pre-Intervention : 0 HOUSTON MCNEIL SLP - 04/07/2022 10:06 EDT Image 1 - Images currently included in the form version of this document have not been included in the text rendition version of the form. Oral Mechanism Dysarthria : Yes Resonance Types : Hyponasal Oral Mechanism for Daily Living : Intact SITE SURVEYOR Cough : Strong Facial Appearance: : Asymmetrical, Other: Ptosis Labial Appearance : Symmetrical Dental/Orthodontia : Dentures Lingual Appearance : Symmetrical HOUSTON MCNEIL SLP - 04/07/2022 10:06 EDT Bedside Swallow Swallow Outcome BS Swallow : Impaired, Needs additional assessment Head Control BS Swallow : Neutral head position Presentation Style BS Swallow : Self Swallow Position BS Swallow : Upright 90 degrees Trunk Control BS Swallow : Upright centered position Consistencies Trialed BS Swallow : Thin by straw HOUSTON MCNEIL SLP - 04/07/2022 10:06 EDT Swallow Impressions Impressions, BS Swallow : Signs/Symptoms of pharyngeal dysphagia Aspiration Reaction, BS Swallow : Audible, Cough Further Evaluation Required, SITE SURVEYOR : Continue to follow for dysphagia re-evaluation as status improves Swallowing Outcome Measures : Functional Oral Intake Scale (FOIS) Functional Oral Intake Scale (FOIS) : Level I Bedside Swallow Overall Impressions : Pt was admitted for neurology evaluation for c/o dysphagia and dysarthria. +Recent viral meningitis. Neuro MD with concern for MG. PMHx signficiant for DM and HTN. SITE SURVEYOR consulted for bedside dypshagia evaluation. Today, pt is alert and oriented x4. Significant increased WOB. +Ptosis. Moderate dysarthria and hypernasality. Oral skills appear functional for swallowing. No difficulty pulling liquids via straw. Violent cough x1 with liquids via straw. Pt refused additional trials. Given severity of deficits, trials abandoned. At this time, it is recommended that the pt remain NPO with Corpak. Ok for moist swabs only. SITE SURVEYOR will check back daily for re-eval for return to PO as status improves. Suction was set up and oral care demonstration was provided. Extensive education provided re: oral care, NPO, aspiration, dysphagia, and treatment plan. Pt and spouse expressed understanding. RN and Neuro MD alerted to results and recommendations. HOUSTON MCNEIL SLP - 04/07/2022 10:06 EDT Swallow Recommendations Recommended Diet Type, SwRec : NPO Supervision Level w/Meals, SwRec : Independent, complete Recommended Med Present, SwRec : Non-oral Recommended Exam, Sw Rec : Repeat Bedside Swallow Repeat Swallow Exam Timeframe : 1-3 days HOUSTON MCNEIL SLP - 04/07/2022 10:06 EDT Therapy Indication Assessment SITE SURVEYOR Indicated : Yes SITE SURVEYOR Interdisciplinary Consultation Needs : No SITE SURVEYOR Problem List : Impaired, Swallowing Potential Barriers to SITE SURVEYOR : None evident SITE SURVEYOR Rehabilitation Potential : Fair HOUSTON MCNEIL SLP - 04/07/2022 10:06 EDT Swallow Plan/Goals Treatment Frequency, SITE SURVEYOR : 5 times per wk Treatment Plan Est w/Pt/Caregvr, Swallow : Yes Treatment Duration, SITE SURVEYOR : One week Therapy at Next Level of Care, SITE SURVEYOR : Acute inpatient rehab HOUSTON MCNEIL SLP - 04/07/2022 10:06 EDT Swallow LTG Grid SITE SURVEYOR Book Repairer Goal #1 SITE SURVEYOR Intermediate Goal #2 Swallow LTG : Improve swallowing function for oral intake Other: Pt goal: None stated Status : Initial HOUSTON MCNEIL SLP - 04/07/2022 10:06 EDT HOUSTON MCNEIL SLP - 04/07/2022 10:06 EDT Swallow Goals Grid Goal #1 Swallow STG : Other: Re-eval for return to PO Related To : Aspiration prevention, Penetration prevention Date to Meet : 04/08/2022 EDT Status : Initial goal HOUSTON MCNEIL SLP - 04/07/2022 10:06 EDT Education Barriers To Learning : None evident Individuals Taught : Patient, Spouse Readiness to Learn : Cooperative Readiness to Learn : Explanation HOUSTON MCNEIL SLP - 04/07/2022 10:06 EDT SITE SURVEYOR Education Assessment Grid 1 Aspiration : Verbalizes understanding Dysphagia : Verbalizes understanding Dysphagia, Effects of Impairment : Verbalizes understanding Non-Oral Nutrition : Verbalizes understanding Oral Care : Verbalizes understanding HOUSTON MCNEIL SLP - 04/07/2022 10:06 EDT SITE SURVEYOR Education Assessment Grid 2 Treatment Plan : Verbalizes understanding HOUSTON MCNEIL SLP - 04/07/2022 10:[address] [facility] SITE SURVEYOR Charges Evaluation Swallowing Function : 1 SITE SURVEYOR EA ADDL 15 MIN NO CHARGE : 1 HOUSTON MCNEIL SLP - 04/07/2022 10:06 EDT Anticipated Discharge Needs, SITE SURVEYOR Anticipated Discharge to : Rehab, high intensity Recommend Continued Therapy at Discharge : Yes HOUSTON MCNEIL SLP - 04/07/2022 10:06 EDT Electronically signed by [facility] Conversion Molding Manager Cerner at 02/01/2023 7:04 PM CDT documented in this encounter Plan of Treatment Not on file documented as of this encounter Visit Diagnoses Not on filedocumented in this encounter Care Teams Field Crop Farm Worker Relationship Specialty Start Date End Date Mumtaz Larson MD [address] [facility] [address] [place] [address] PCP - General Family Medicine 08/26/22 documented as of this encounter
--- OUTSIDE RECORDS SUMMARY | 2025-06-16 09:38 | XMS_ITS | Encounter Summary ---
Author Organization [employer] ([place], [place], [place], [place]) Address [address] [place] [address] Care Team Providers Care Sign Writer Letterer Or Painter Name Role Phone Mumtaz Larson MD Primary Care Provider + [phone] Encounter Details Date Type Department Care Team (Late st Contact Info) Description 04/06/2022 Transcribed Document [facility] Family Medicine [address] [place] [address] ProviderGabriel MD [address] [place] [address] Social History Tobacco Use Types Packs/Day Years [...] Date Macario rded Speak language other than Lithuanian at home Not on file 10/29/2023 Want [...] Conversion Note - Historical Provider, - 04/06/2022 3:40 PM CDT Admission History, Adult Entered On: 04/06/2022 16:16 EDT Performed On: 04/06/2022 15:40 EDT by MATT HENSLEY RN Advance Directive Patient has Advance Directive *Q : No, patient refuses Advance Directive information MATT HENSLEY RN - 04/06/2022 16:09 EDT Anesthesia/Transfusion History Family History of Anesthesia Reaction : No prior transfusion(s) Blood Transfusion Acceptable to Patient : Yes Transfusion History : Prior anesthesia without reaction Family History of Anesthesia Reaction : None MATT HENSLEY RN - 04/06/2022 16:09 EDT Anticipated Discharge Needs Discharge To, Anticipated : Home Anticipated Discharge Needs at This Time : None MATT HENSLEY RN - 04/06/2022 16:09 EDT Education Topics, Admission Orientation DCP GENERIC CODE Advance Directives : Verbalizes understanding Allergy Band Applied : Verbalizes understanding Assessment/Vital Signs : Verbalizes understanding Bed Control : Verbalizes understanding Call Light : Verbalizes understanding Confidentiality : Verbalizes understanding Diet/Room Service : Verbalizes understanding Fall Prevention : Verbalizes understanding Hand Hygiene : Verbalizes understanding Healthcare Provider Visit : Verbalizes understanding ID Band Applied : Verbalizes understanding Isolation Precautions : Verbalizes understanding Orientation to Room/Bathroom : Verbalizes understanding Patient Bill of Rights : Verbalizes understanding Patient Rights/Responsibilities : Verbalizes understanding Patient Safety : Verbalizes understanding Personal Privacy Code : Verbalizes understanding Rapid Response Initiated by Patient/Family : Verbalizes understanding Rounding : Verbalizes understanding Siderails use/risks : Verbalizes understanding Skin Precautions : Verbalizes understanding Smoking Policy : Verbalizes understanding Telemetry Monitoring : Verbalizes understanding Television/Phone : Verbalizes understanding Visiting Policy : Verbalizes understanding MATT HENSLEY RN - 04/06/2022 16:09 EDT Functional Assessment Living Situation : Home Patient Lives With : Spouse Sensory Deficits : Hearing deficit, right ear, Hearing deficit, left ear Current Home Treatments : BiPAP, Blood glucose monitoring MATT HENSLEY RN - 04/06/2022 16:09 EDT General Info Preferred Name : King Arrived From : Acute Care Facility Mode of Arrival on Unit : Stretcher Support Person/Patient Director Of Elementary Education : Yes Support Person/Pt Rep Name : Clare King - Support Person/Pt Rep Contact Information : [phone] Want Family/Rep/Phys Notified of Admit : No Emergency Contact #1 : Clare King Emergency Contact #1 Emergency Contact #1 Relationship : Emergency Contact #2 : Kathleen Overton Emergency Contact #2 Emergency Contact #2 Relationship : dtr Primary Language : Lithuanian Communication Barrier : None Gaming Manager Needed : No MATT HENSLEY RN - 04/06/2022 16:09 EDT Fall Risk Scales ABCs Fall Injury Risk Identification : None JAVIER Hx Falls Immediate/Within 3 Months : No Javier Secondary Diagnosis : Yes JAVIER Use of Ambulatory Aid : None JAVIER IV Therapy or IV Access : Yes Javier Gait/Transferring : Weak Javier Mental Status : Oriented to own ability Javier Fall Risk Score : 45 JAVIER Fall Scale Risk Level : 25-45 Medium Risk [place] Fall Interventions : Adequate lighting, Bed in low position, Call device within reach, Fall prevention handout/education per facility policy, Hourly comfort/safety rounds, Non-slip footwear, Personal items within reach, Reinforced to call for assistance before getting out of bed, Room free of clutter/spills, Upper side-rails up, Wheels locked, Wires/Cords secured Fall Moderate to High Risk Interventions : Transport methods appropriate to patient Fall Risk Scale Calc Temp : 0 MATT HENSLEY RN - 04/06/2022 16:09 EDT Health Histories Smoking Status : Former smoker, quit more than 30 days ago Smokeless Tobacco Status : Never MATT HENSLEY RN - 04/06/2022 16:09 EDT Social History (As Of: 04/06/2022 16:26:01 EDT) Tobacco: Former smoker, quit more than 30 days ago Smoking Status. Never Smokeless Tobacco Status. None Smokeless Tobacco Use History. Last Used: quit in the 80s . (Last Updated: 09/27/2020 10:27:51 EST by Miguel Angel Calloway Rn) Alcohol: Alcohol Use History No. Use in Last 12 Months: No. (Last Updated: 09/27/2020 10:27:51 EST by Miguel Angel Calloway Rn) Substance Abuse: Drug Use Hx: No. Use in Last 12 Months: No. (Last Updated: 09/27/2020 10:27:51 EST by Miguel Angel Calloway Rn) Height and Weight, Clinical Dosing Height Source : Stated Height Entry Format : [place] Height, Feet : 6 ft(Converted to: 183 cm, 72 Inch) Height, Inches : 1 Inch(Converted to: 0 ft 1 Inch, 2.54 cm) Clinical Height : 185.42 cm Weight Source : Bed scale Weight Entry Format : [place] MATT HENSLEY RN - 04/06/2022 16:09 EDT Clinical Dosing Weight : 104.09 kg Weight, Pounds : 229 lb Body Surface Area (BSA) : 2.28 m2 Body Mass Index : 30.3 kg/m2 (HI) MATT HENSLEY RN - 04/06/2022 16:25 EDT [place] Body Weight : 79 kg MATT HENSLEY RN - 04/06/2022 16:09 EDT Infectious Disease History Patient Vaccinated for COVID-19 : Fully vaccinated MATT HENSLEY RN - 04/06/2022 16:25 EDT Does patient have symptoms of COVID-19? : No Tested for COVID19 in the past 14 days : Unable to obtain or unsure Does the Patient state known exposure to a COVID-19 positive case in the last 14 days? : No MATT HENSLEY RN - 04/06/2022 16:09 EDT Infectious Disease Risk Screening Grid Cough < 2 wks of unknown origin : NO Cough > 2 weeks : NO Blood in Sputum : NO Fever or self-reported Fever : NO Rash of unknown origin : NO Headache : NO Stiff neck : NO Night Sweats : NO Unexplained Weight Loss : NO Diarrhea (3 episode per day) : NO MATT HENSLEY RN - 04/06/2022 16:09 EDT Physical contact outside [place] in the last 30 days : No Hospitalized in Foreign Country : No Infectious Disease History : None INF Disease TB Screening Calc : 0 INF Disease Recent Travel Calc : 0 MATT HENSLEY RN - 04/06/2022 16:09 EDT Tetanus Immunization Status Previous Tetanus Immunizations : No qualifying data available. MATT HENSLEY RN - 04/06/2022 16:09 EDT Influenza Vaccine Asmt, Adult Previous Vaccines from Immunization Schedule : No qualifying data available. Influenza Immunization, Current Season : Outside of influenza season MATT HENSLEY RN - 04/06/2022 16:09 EDT Pneumococcal Vaccine Previous Vaccines from Immunization Schedule : No qualifying data available. Pneumonia Immunization Received : Unknown Pneumococcal Risk Assessment < Age 65 : N/A- Patient 65 years of age or older Pneumococcal Vaccine Contraindications : No contraindications to pneumococcal vaccine Transplant Workup/Recent Transplant : No Order for Pneumococcal Vaccine : Declined Vaccination MATT HENSLEY RN - 04/06/2022 16:09 EDT Order Details Order Detail : N/A Patient Needs Meds Crushed/Liquid : No MATT HENSLEY RN - 04/06/2022 16:09 EDT Nutrition History Adaptive Feeding Equipment : Diabetic Eating Poorly Due to Decreased Appetite : No Unplanned Weight Loss in Past 3-6 Months : No Malnutrition Screening Tool Total(mal) : 0 Malnutrition Screening Tool Risk Level : Patient not at risk MATT HENSLEY RN - 04/06/2022 16:09 EDT [place] Suicide Severity Rating Scale (C-SSRS) CSSRS Past Month Wish to be : No CSSRS Past Month Suicidal Thoughts : No CSSRS Lifetime Suicide Behavior : No Suicide Severity Rating Score : 0 Suicide Severity Rating : No Additional Care Required at this time MATT HENSLEY RN - 04/06/2022 16:25 EDT Psychosocial History Currently in Unsafe Situation : No MATT HENSLEY RN - 04/06/2022 16:09 EDT Sleep Apnea Risk Assmt BiPAP/CPAP Ordered for Home Use : Yes Hx of Obstructive Sleep Apnea Diagnosis : Yes BiPAP/CPAP Used at Home : No Reason BiPAP/CPAP Not Used at Home : bipap was recalled not used in 1 year Age over 50 Years Old : Yes Gender Male : Yes MATT HENSLEY RN - 04/06/2022 16:09 EDT Valuables and Belongings Valuables and Belongings : Clothing Clothing : Common streetwear Clothing Disposition : Bedside MATT HENSLEY RN - 04/06/2022 16:09 EDT Electronically signed by [facility] Conversion Technical Information Specialist Cerner at 02/01/2023 6:58 PM CDT documented in this encounter Plan of Treatment Not on file documented as of this encounter Visit Diagnoses Not on filedocumented in this encounter Care Teams Sign Writer Letterer Or Painter Relationship Specialty Start Date End Date Mumtaz Larson MD [address] [place] [facility] [address] [place] [id number] PCP - General Family Medicine 08/26/22 documented as of this encounter
--- OUTSIDE RECORDS SUMMARY | 2025-06-16 09:39 | XMS_ITS | Encounter Summary ---
Author Organization [employer] ([place], [place], [place], [place]) Address [address] [place] [address] Care Team Providers Care Front Desk Name Role Phone Mumtaz Larson MD Primary Care Provider + [phone] Encounter Details Date Type Department Care Team (Late st Contact Info) Description 04/07/2022 Transcribed Document [facility] Family Medicine [address] [place] [address] ProviderGabriel MD [address] [place] [address] Social History Tobacco Use Types Packs/Day Years [...] Date Macario rded Speak language other than Belarusian at home Not on file 10/29/2023 Want [...] Cerner Conversion Note - Historical Provider, - 04/07/2022 10:03 AM CDT Patient: TIEN GARCIA Age: 66 years Sex: Male : 1955 Associated Diagnoses: None Author: SRAVAN HIDALGO MD-TEETEE Subjective Pt reports improvement in breathing and ability to swallow after each dose of Mestinon; he continues to be unable to swallow and has difficulty managing secretions He denies diplopia today; no new symptoms Objective VS/Measurements Vital Signs/Vital Measures 04/07/2022 5:59 EDT Systolic Blood Pressure 176 mmHg HI Diastolic Blood Pressure 112 mmHg HI Temperature, Fahrenheit 97.5 Deg F Heart Rate Monitored 81 bpm General: awake and alert; moderately SOA but better from yesterday. Speech is dysarthric. Eye: Pupils are equal, round and reactive to light, Extraocular movements are intact, L>R ptosis. Respiratory: moderately short of breath. Cardiovascular: Normal rate, Regular rhythm. Neurologic: R ptosis with mild bilateral facial weakness noted; CN otherwise intact. Cervical muscle strength is full. Motor strength is 5/5 throughout, sensation intact, no ataxia. Psychiatric: Cooperative. Results Review Labs reviewed MRI brain pending- currently unable to lay flat, will cancel for now CT chest pending [facility]; CSF at that time with 619 WBCs, all cultures negative (did not see results of viral PCR panel) Impression and Plan 66yo M with h/o recent viral meningitis now admitted with one week history of worsening dysphagia, slurred speech, facial weakness and now shortness of breath; clinical exam and symptoms are most consistent with myasthenia gravis, other differential would include paraneoplastic disorder, encephalitis (including tick or mosquito borne illnesses), malignancy, less likely stroke. He has had two doses of Mestinon with improvement in symptoms each time; while we await blood tests for myasthenia will start treatment with high dose steroids and IV Ig along with Mestinon for now- I have very high suspicion this is myasthenia gravis and it is best to treat early before patient continues to worsen. I will hold off on MRI brain for now until he is improved and can tolerate lying flat; will get CT chest when possible to evaluate for thymoma. We will continue to monitor his respiratory status closely; will place [place] today as he is unsafe for swallowing. I will consider LP or other testing if indicated if he is not improving with steroids/IV Ig. Plan discussed at length with patient and ; all questions answered. Neurology will continue to follow closely. documented in this encounter Plan of Treatment Not on file documented as of this encounter Visit Diagnoses Not on filedocumented in this encounter Care Teams Front Desk Relationship Specialty Start Date End Date Mumtaz Larson MD [address] [place] [facility] [address] [place] [id number] PCP - General Family Medicine 08/26/22 documented as of this encounter
--- OUTSIDE RECORDS SUMMARY | 2025-06-16 09:39 | XMS_ITS | Encounter Summary ---
Author Organization [employer] ([place], [place], [place], [place]) Address [address] [place] [address] Care Team Providers Care Director Of National Sales Name Role Phone Mumtaz Larson MD Primary Care Provider + [phone] Encounter Details Date Type Department Care Team (Late st Contact Info) Description 10/02/2020 Transcribed Document [facility] [place] [facility] [address] ProviderGabriel MD [address] [place], [place] [address] Social History Tobacco Use Types Packs/Day Years Used Date Smoking Tobacco: Never Assessed Sex and Gender Information Value Date Recorded Sex Assigned at Male 05/13/2022 12:59 PM CDT Legal Sex Male 1:44 PM CDT Gender Identity Male 05/13/2022 12:59 PM CDT Sexual Orientation Not on file documented as of this encounter Miscellaneous Notes * [employer]ner Conversion Note - Historical ProviderMD - 10/02/2020 6:27 PM GAS SYSTEM OPERATOR Meds to Bed Enrollment Entered On: 10/03/2020 7:14 EST Performed On: 10/02/2020 18:27 EST by Jeromy Beach CLINICAL LAB CLERK LEAD Meds to Bed Enrollment Patient Enrollment Decision: : Yes/enroll in meds to bed program Jeromy Beach PHARMACY TECH LEAD - 10/03/2020 7:14 EST documented in this encounter Plan of Treatment Not on file documented as of this encounter Visit Diagnoses Not on filedocumented in this encounter Care Teams Director Of National Sales Relationship Specialty Start Date End Date Mumtaz Larson MD [address] [place] [facility] [address] [place] [id number] PCP - General Family Medicine 08/26/22 documented as of this encounter
--- OUTSIDE RECORDS SUMMARY | 2025-06-16 09:39 | XMS_ITS | Encounter Summary ---
Author Organization [facility] ([place], [place], [place], [place]) Address [address] [place] [address] Care Team Providers Care Base Wad Operator Adjuster Name Role Phone Mumtaz Larson MD Primary Care Provider + [phone] Encounter Details Date Type Department Care Team (Late st Contact Info) Description 10/02/2020 Transcribed Document [facility] Family Medicine [address] [place] [address] ProviderGabriel MD [address], [place] [address] Social History Tobacco Use Types Packs/Day Years Used Date Smoking Tobacco: Never Assessed Sex and Gender Information Value Date Recorded Sex Assigned at Male 05/13/2022 12:59 PM CDT Legal Sex Male 1:44 PM CDT Gender Identity Male 05/13/2022 12:59 PM CDT Sexual Orientation Not on file documented as of this encounter Miscellaneous Notes * Cerner Conversion Note - Historical ProviderMD - 10/02/2020 3:30 PM CHEMICAL PROCESS ENGINEER [facility] Main OR IntraOp Summary Primary Physician: RUSLAN FRAZIER MD-SNU Finalized Date/Time: 10/04/20 10:26:00 Pt. Name: TIEN DEJESUS Wilmer Delcid/Sex: 1955 Male Med Rec #: [id number] Physician: RUSLAN FRAZIER MD-SANDEEP Financial #: [id number] Pt. Type: I Room/Bed: 645/1 Admit/Disch: 10/02/20 06:11:00 - 10/03/20 14:43:00 Institution: [facility] IntraOp Case Attendance Entry 1 Entry 2 Entry 3 Case Attendee FREDDIE, RIAN CLAIRE SANDRA D, RN MELVA MARTIN, MAKEDA JAMES-SANDEEP TECH Role Performed Surgeon/Proceduralist, Enrobing Machine Feeder, Second Scrub, First First Time In 10/02/20 14:49:00 10/02/20 14:49:00 10/02/20 14:49:00 Time Out 10/02/20 17:14:00 10/02/20 15:04:00 10/02/20 17:14:00 Procedure Lumbar Fusion Posterior Lumbar Fusion Posterior Lumbar Fusion Posterior 3 Level 3 Level 3 Level Other Attendee Superficial Wound Closed By: Last Modified By: Bernadine Castro Perkins, Cassandra L, Bernadine Castro, RN 10/02/20 17:15:30 RN 10/02/20 17:15:30 RN 10/02/20 17:15:30 Entry 4 Entry 5 Entry 6 Case Attendee MAGDALENO AGEE, RN Bernadine Castro, RN CAITLIN BEY, MANAGER PRODUCT SUPPORT Role Performed Scrub, Second Enrobing Machine Feeder, Second MANAGER PRODUCT SUPPORT/Nurse Needle Punch Machine Operator Time In 10/02/20 14:49:00 10/02/20 15:19:00 10/02/20 14:49:00 Time Out 10/02/20 14:55:00 10/02/20 17:14:00 10/02/20 17:14:00 Procedure Lumbar Fusion Posterior Lumbar Fusion Posterior Lumbar Fusion Posterior 3 Level 3 Level 3 Level Other Attendee Superficial Wound Closed By: Last Modified By: Bernadine Castro Perkins, Cassandra L, Bernadine Castro, RN 10/02/20 17:15:30 RN 10/02/20 17:16:06 RN 10/02/20 17:15:30 Entry 7 Entry 8 Entry 9 Case Attendee Joni Fong, RN OTHER, ATTENDEE #1 ARIADNA SCOTT Role Performed Enrobing Machine Feeder, First Student Physician greenhouse assistant Time In 10/02/20 16:52:00 10/02/20 14:49:00 10/02/20 14:49:00 Time Out 10/02/20 17:14:00 10/02/20 17:14:00 10/02/20 17:14:00 Procedure Lumbar Fusion Posterior Lumbar Fusion Posterior Lumbar Fusion Posterior 3 Level 3 Level 3 Level Other Attendee relief patience munguia - MANAGER PRODUCT SUPPORT student Superficial Wound Closed By: Last Modified By: Bernadine Castro, Bernadine Castro, Bernadine Castro, RN 10/02/20 17:15:30 RN 10/02/20 17:15:30 RN 10/02/20 17:15:30 [facility] IntraOp Case Attendance Audit 10/02/20 17:16:06 Emergency Medical Services Coordinator: [id number] Modifier: [id number] <+> Role Performed 5 <*> Procedure Lumbar Fusion Posterior 3 Level 10/02/20 17:15:30 Emergency Medical Services Coordinator: [id number] Modifier: [id number] <+> Time Out 1 <*> Procedure Lumbar Fusion Posterior 3 Level 2 <*> Procedure Lumbar Fusion Posterior 3 Level 3 <+> Time Out 3 <*> Procedure Lumbar Fusion Posterior 3 Level 4 <*> Procedure Lumbar Fusion Posterior 3 Level 5 <+> Time Out 5 <*> Procedure Lumbar Fusion Posterior 3 Level 6 <+> Time Out 6 <*> Procedure Lumbar Fusion Posterior 3 Level 7 <+> Time Out 7 <*> Procedure Lumbar Fusion Posterior 3 Level 8 <+> Time Out 8 <*> Procedure Lumbar Fusion Posterior 3 Level 9 <+> Time Out 9 <*> Procedure Lumbar Fusion Posterior 3 Level 10/02/20 17:10:08 Emergency Medical Services Coordinator: [id number] Modifier: [id number] <+> 9 Case Attendee <+> 9 Role Performed <+> 9 Time In <+> 9 Procedure 10/02/20 17:04:30 Emergency Medical Services Coordinator: [id number] Modifier: [id number] <+> 8 Case Attendee <+> 8 Role Performed <+> 8 Time In <+> 8 Procedure <+> 8 Other Attendee 10/02/20 17:03:20 Emergency Medical Services Coordinator: [id number] Modifier: [id number] <+> 7 Case Attendee <+> 7 Role Performed <+> 7 Time In <+> 7 Procedure <+> 7 Other Attendee 10/02/20 16:46:56 Emergency Medical Services Coordinator: [id number] Modifier: [id number] <*> Procedure Lumbar Fusion Posterior 3 Level 2 <*> Procedure Lumbar Fusion Posterior 3 Level 3 <*> Procedure Lumbar Fusion Posterior 3 Level 4 <*> Procedure Lumbar Fusion Posterior 3 Level 5 <*> Procedure Lumbar Fusion Posterior 3 Level 6 <+> Time In 6 <*> Procedure Lumbar Fusion Posterior 3 Level 10/02/20 15:37:23 Emergency Medical Services Coordinator: [id number] Modifier: [id number] <+> 6 Case Attendee <+> 6 Role Performed <+> 6 Procedure 10/02/20 15:19:36 Emergency Medical Services Coordinator: [email or web address] Modifier: [id number] <*> Procedure Lumbar Fusion Posterior 3 Level 2 <*> Procedure Lumbar Fusion Posterior 3 Level 3 <+> Time In 3 <*> Procedure Lumbar Fusion Posterior 3 Level 4 <+> Time In 4 <*> Procedure Lumbar Fusion Posterior 3 Level <+> 5 Case Attendee <+> 5 Time In <+> 5 Procedure 10/02/20 15:12:55 Emergency Medical Services Coordinator: [email or web address] Modifier: [email or web address] 1 <*> Procedure Lumbar Fusion Posterior 3 Level 2 <+> Time In 2 <*> Procedure Lumbar Fusion Posterior 3 Level <+> 3 Case Attendee <+> 3 Role Performed <+> 3 Procedure <+> 4 Case Attendee <+> 4 Role Performed <+> 4 Time Out <+> 4 Procedure 10/02/20 15:04:57 Emergency Medical Services Coordinator: [email or web address] Modifier: [email or web address] 1 <*> Procedure Lumbar Fusion Posterior 3 Level <+> 2 Case Attendee <+> 2 Role Performed <+> 2 Time Out <+> 2 Procedure [facility] IntraOp Case Times Entry 1 Patient In Room Time 10/02/20 14:49:00 Out Room Time 10/02/20 17:14:00 Anesthesia Start Time 10/02/20 14:49:00 Stop Time 10/02/20 17:14:00 Surgery / Procedure Times Start Time 10/02/20 15:30:00 Stop Time 10/02/20 17:10:00 Last Modified By: Bernadine Castro RN 10/02/20 17:15:28 [facility] IntraOp Case Times Audit 10/02/20 17:15:28 Emergency Medical Services Coordinator: [id number] Modifier: [id number] <+> 1 Out Room Time <+> 1 Stop Time 10/02/20 17:13:13 Emergency Medical Services Coordinator: [id number] Modifier: [id number] <+> 1 Stop Time 10/02/20 15:30:10 Emergency Medical Services Coordinator: [email or web address] Modifier: [id number] <+> 1 Start Time [facility] IntraOp Cautery Entry 1 ESU Identification Cautery Type Monopolar ESU ID Number [id number] ID Type Hospital Number Cautery Settings Cut Setting 30 Coag Setting 30 ESU Grounding Pad Ground Pad Type Adult Grounding Pad Site Left thigh Grounding Pad SACHA MODI RN Applied By Grounding Pad Site Warm, dry and intact Skin Condition Before Cautery Grounding Pad Site Unchanged Skin Condition After Cautery Last Modified By: Bernadine Castro RN 10/02/20 15:17:52 [facility] IntraOp Communication Entry 1 Communication To Family/Significant other Communication By Bernadine Castro RN Last Modified By: Bernadine Castro RN 10/02/20 16:49:41 [facility] IntraOp Counts Verification Entry 1 Procedure Lumbar Fusion Posterior 3 Level Count Info Count Type Sponge, Sharps, Miscellaneous Counts Verification Baseline/pre-procedure Sequence Count Results Not Applicable Counts Performed By Count Performed By MAGDALENO AGEE RN (Scrub) Count Performed By SACHA MODI RN (RN) Last Modified By: SACHA MODI RN 10/02/20 15:13:15 [facility] IntraOp Counts Final Entry 1 Procedure Lumbar Fusion Posterior 3 Level Final Count Info Count Type Sponge, Sharps, Miscellaneous Counts Verification Skin Closure/end of Sequence procedure Count Results Correct, surgeon notified Counts Performed By Count Performed By MELVA MARTIN SCRUB (Scrub) TECH Count Performed By Bernadine Castro RN (RN) Last Modified By: Bernadine Castro RN 10/02/20 16:54:07 [facility] IntraOp Departure from OR Entry 1 Integumentary Assessment Integumentary WDL Assessment WDL Transfer/Handoff Transfer to PACU Phase I Handoff Method Bedside/Face to face, Online nursing summary Post-op Transport Stretcher/Gurney Via Patient Transport CAITLIN BEY, Accompanied by MANAGER PRODUCT SUPPORT, OTHER, ATTENDEE #1 Last Modified By: Bernadine Castro RN 10/02/20 17:04:35 [facility] IntraOp Departure from OR Audit 10/02/20 17:04:35 Emergency Medical Services Coordinator: [id number] Modifier: [id number] <*> Patient Transport Accompanied by CAITLIN BEY CRNA [facility] IntraOp Dressing and Packing Entry 1 Type Dressing Last Modified By: Bernadine Castro RN 10/02/20 15:32:06 [facility] IntraOp Fire Risk Assessment Entry 1 Fire Info Surgical Site or 0- No Incision Above the Xyphoid Open O2 Source 1- Yes (Mask or Cannula) Available Ignition 1- Yes (ESU, Laser, Light Source) Fire Risk 2 Assessment Score Fire Score Fire Risk Yes Assessment Complete Fire Risk SACHA MODI RN Assessment Verified By Fire Risk 10/02/20 15:18:00 Assessment Verified Date/Time Fire Risk Standard Fire Yes Safety Precautions Followed Last Modified By: Bernadine Castro RN 10/02/20 15:18:15 [facility] IntraOp General Case Merchandise Coordinator 1 Case Information OR OR 10 [facility] Case Level 1 Room Verified Yes Wound Class I - Clean Specialty SN Neurosurgery Anesthesia Type General ASA Class 3 Diagnosis Preop Diagnosis L4-5 spondylolisthesis Postop Diagnosis see md post op notes Last Modified By: Bernadine Castro RN 10/02/20 16:55:06 [facility] IntraOp General Case Data Audit 10/02/20 16:55:06 Emergency Medical Services Coordinator: [id number] Modifier: [id number] <+> 1 Preop Diagnosis [facility] IntraOp Implant Log Entry 1 Entry 2 Entry 3 Type Tissue Implant Implant (Synthetic) Implant (Synthetic) (Biologic) Implant Log Implant Type Hardware Hardware Tissue Implant Type Other Implant .BONE VIVIGEN FORMABLE [id number] [facility] Identification [id number] Description Implant Quantity 1 1 1 Implant Site op site Implant Identification Model Number Implant Identification Serial Number Implant Identification Lot Number Implant J&J:Depuy:Depuy Spine Identification Gusset Ripper Name: Implant [id number] Identification Catalog Number Implant Size Implant Has an Yes Expiration Date Implant Expiration 09/13/21 Date Wasted Radioactive Material Time Implanted Tissue Implant Continue for Tissue Implant Documentation Tissue Identification Number Graft Prep Per Gusset Ripper Instructions: Tissue Preparation Method: Reconstitution Solution: Reconstitution Solution Lot Number Reconstitution Solution Expiration Date: Thawing Solution Thawing Solution Lot Number Thawing Solution Expiration Date Preparation Materials, Other Preparation Materials, Other Lot Number Preparation Materials, Other Expiration Date Tissue Prepared/Processed By Gusset Ripper Paperwork Completed Implant Type Comment Last Modified By: Bernadine Castro, Bernadine Castro, Bernadine Castro, RN 10/02/20 15:38:31 RN 10/02/20 16:49:28 RN 10/02/20 16:49:28 Entry 4 Entry 5 Entry 6 Type Implant (Synthetic) Implant (Synthetic) Implant (Synthetic) Implant Log Implant Type Hardware Hardware Hardware Tissue Implant Type Implant [id number] Identification Description Implant Quantity 4 2 4 Implant Site Implant Identification Model Number Implant Identification Serial Number Implant Identification Lot Number Implant Identification Gusset Ripper Name: Implant Identification Catalog Number Implant Size Implant Has an Expiration Date Implant Expiration Date Wasted Radioactive Material Time Implanted Tissue Implant Continue for Tissue Implant Documentation Tissue Identification Number Graft Prep Per Gusset Ripper Instructions: Tissue Preparation Method: Reconstitution Solution: Reconstitution Solution Lot Number Reconstitution Solution Expiration Date: Thawing Solution Thawing Solution Lot Number Thawing Solution Expiration Date Preparation Materials, Other Preparation Materials, Other Lot Number Preparation Materials, Other Expiration Date Tissue Prepared/Processed By Gusset Ripper Paperwork Completed Implant Type Comment Last Modified By: Bernadine Castro Perkins, Cassandra L, Bernadine Castro, RN 10/02/20 16:49:28 RN 10/02/20 16:49:28 RN 10/02/20 16:49:28 Entry 7 Type Implant Log Implant Type Hardware Tissue Implant Type Implant [id number] Identification Description Implant Quantity 1 Implant Site Implant Identification Model Number Implant Identification Serial Number Implant Identification Lot Number Implant Identification Gusset Ripper Name: Implant Identification Catalog Number Implant Size Implant Has an Expiration Date Implant Expiration Date Wasted Radioactive Material Time Implanted Tissue Implant Continue for Tissue Implant Documentation Tissue Identification Number Graft Prep Per Gusset Ripper Instructions: Tissue Preparation Method: Reconstitution Solution: Reconstitution Solution Lot Number Reconstitution Solution Expiration Date: Thawing Solution Thawing Solution Lot Number Thawing Solution Expiration Date Preparation Materials, Other Preparation Materials, Other Lot Number Preparation Materials, Other Expiration Date Tissue Prepared/Processed By Gusset Ripper Paperwork Completed Implant Type Comment Last Modified By: Bernadine Castro RN 10/02/20 16:49:28 [facility] IntraOp Implant Log Audit 10/02/20 16:49:28 Emergency Medical Services Coordinator: [id number] Modifier: [id number] <+> 2 Implant Identification Description <+> 2 Implant Quantity <+> 2 Implant Type <+> 2 Type <+> 3 Implant Identification Description <+> 3 Implant Identification Gusset Ripper Name: <+> 3 Implant Quantity <+> 3 Implant Identification Catalog Number <+> 3 Implant Type <+> 3 Type <+> 4 Implant Identification Description <+> 4 Implant Quantity <+> 4 Implant Type <+> 4 Type <+> 5 Implant Identification Description <+> 5 Implant Quantity <+> 5 Implant Type <+> 5 Type <+> 6 Implant Identification Description <+> 6 Implant Quantity <+> 6 Implant Type <+> 6 Type <+> 7 Implant Identification Description <+> 7 Implant Quantity <+> 7 Implant Type [facility] IntraOp Intraoperative Assessment Entry 1 Handoff Method Bedside/Face to face, Phone call, Online nursing summary, Other Valid History / Yes Physical in Chart Preoperative Yes Checklist Reviewed/Evaluated Patient is Latex No Sensitive Isolation Not applicable Precautions Noted Level of WDL Consciousness (WDL = Alert, Oriented to Person, Place, and Time) Present Upon IVs Arrival to OR Last Modified By: Bernadine Castro RN 10/02/20 15:38:46 [facility] IntraOp Intraoperative Equipment Entry 1 Type Equipment Equipment Equipment Ophelia Suction System Setting 66055 Intraop Monitoring Electrocardiogram Five lead placement (ECG) Electrode Placement Blood Pressure Non-Invasive BP Device Source Blood Pressure Arm, right upper Location Pulse Oximeter Hand, left Probe Site Antiembolic Devices Antiembolic Devices Sequential compression device, knee high Antiembolic Device Bilateral Location Antiembolic Device [id number] ID Number Scopes Photo/Video Documentation Last Modified By: Bernadine Castro RN 10/02/20 15:39:13 [facility] IntraOp Medication Admin Entry 1 Medication/Irrigant Marcaine 0.25% 30ml vial - [id number] Dose Procedure Irrigation Last Modified By: Bernadine Castro RN 10/02/20 16:53:44 [facility] IntraOp Patient Positioning Entry 1 Procedure Lumbar Fusion Posterior 3 Level Body Position Prone Left Arm Position Secured on padded arm board Right Arm Position Secured on padded arm board Left Leg Position Uncrossed, parallel Right Leg Position Uncrossed, parallel Feet Uncrossed Yes Pressure Points Yes Checked Positioning Devices Pad, Elbow Positioned By Bernadine Castro RN, FREDDIE, RUSLAN CRAIG MD-SNU, SACHA MODI RN Position Verified Positioning Yes Verified by Anesthesia Positioning Yes Verified by Surgeon Last Modified By: Bernadine Castro RN 10/02/20 15:33:07 [facility] IntraOp Sign In Entry 1 Patient, Site, Yes Procedure Identified Surgical Consent Yes Confirmed Surgical Site Yes Marked by person performing procedure Anesthesia Machine Yes Check Completed Medication Checks Yes Completed Allergies Yes Airway Difficult Yes Airway/Aspiration Risk Difficult Yes Airway/Aspiration Intervention Equipment Available Blood Loss Risk Yes Blood Loss Yes Intervention Equipment Prepared and Ready Blood Identifiers Not applicable Verified Per Policy Hypothermia Risk Yes Warming Measures Yes Taken Last Modified By: Bernadine Castro RN 10/02/20 16:46:47 [facility] IntraOp Sign Out Entry 1 RN Confirmation Surgical Yes Procedure(s) Identified Instrument, Sponge Yes and Sharps Counts Correct/Documented Equipment Problems Yes Documented Specimen Labeled Yes Correctly Urinary Catheter N/A Documented in IView Vincent Patient Yes Recovery Concerns Reviewed with Anesthesia Provider, Surgeon and RN Vincent Patient Yes Management Concerns Reviewed with Anesthesia Provider, Surgeon and RN Safety Checklist Yes Elements Complete? RN Sign Out Joni Fong RN Signature RN Sign Out 10/02/20 17:15:00 Signature Date/Time Plan of Care Outcome - Fire Risk OUTCOME STATEMENT: Goal met Patient is free from injury related to surgical fire Plan of Care Outcome - Pt Positioning OUTCOME STATEMENT: Goal met Absence of signs and symptoms of positioning injury. Plan of Care Outcome - Skin Prep OUTCOME STATEMENT: Goal met Intraoperative care is consistent with measures to prevent infection Plan of Care Outcome - Xray/Images OUTCOME STATEMENT: Goal met Absence of observable signs or symptoms of radiation injury Plan of Care Outcome - Counts OUTCOME STATEMENT: Goal met Absence of signs and symptoms of injury related to extraneous objects Last Modified By: Bernadine Castro RN 10/02/20 17:15:44 [facility] IntraOp Sign Out Audit 10/02/20 17:15:44 Emergency Medical Services Coordinator: [id number] Modifier: [id number] <*> RN Sign Out Signature Bernadine Castro RN 1 <+> RN Sign Out Signature Date/Time [facility] IntraOp Skin Prep Entry 1 Procedure Lumbar Fusion Posterior 3 Level Prescribed Yes Pre-Surgical Prep Completed Prep Area op site Intraop Prep Integumentary WDL Assessment WDL Prep Agents DuraPrep Prep by Bernadine Castro RN Hair Removal Methods Clipper/Scissors Hair Removal By RUSLAN FRAZIER MD-[facility] Last Modified By: Bernadine Castro RN 10/02/20 15:32:27 [facility] IntraOp Surgical Procedures Entry 1 Procedure Lumbar Fusion Posterior 3 Level Additional (L4-5 TLIF WITH AIRO) Procedure Description Primary Procedure Yes Primary Surgeon RUSLAN FRAZIER MD-SNU Start 10/02/20 15:30:00 Stop 10/02/20 17:10:00 Anesthesia Type General Specialty SN Neurosurgery Wound Class I - Clean Last Modified By: Bernadine Castro RN 10/02/20 17:15:32 [facility] IntraOp Surgical Procedures Audit 10/02/20 17:15:32 Emergency Medical Services Coordinator: [id number] Modifier: [id number] <+> 1 Stop 10/02/20 16:50:20 Emergency Medical Services Coordinator: [email or web address] Modifier: [id number] <+> 1 Start [facility] IntraOp Temp Regulation Devices Entry 1 Temp Regulation Temperature Warm blankets Regulation Device Temperature COMBEST, CAITLIN P, MANAGER PRODUCT SUPPORT Regulation Device Applied by Last Modified By: Bernadine Castro RN 10/02/20 16:34:04 [facility] IntraOP Time Out Entry 1 Procedure to be Lumbar Fusion Posterior Performed 3 Level Time Out Time Out Pause Time 10/02/20 15:29:00 All activity Yes suspended (unless life threatening emergency) Team Verbally Correct patient Confirms Information identity, Correct side and site are marked, Consent form is present and accurate, Agreement on the procedure to be done, Correct patient position, Relevant images/results properly labeled/appropriately displayed, Confirm antibiotics have been administered, Confirm the skin prep has dried, Confirm prosthesis/implant/devic e is present, Performed in location of procedure after prepped/draped Antibiotic Yes Prophylaxis Administered Or In Progress Within the Last 60 Minutes Beta Galdino Yes Administered Venous Yes Thromboembolism Prophylaxis Required Anticipated Critical Events Surgeon None expected Anesthesia Provider Patient specific concerns Nursing Assures Sterility of instruments Essential Imaging Yes Labeled and Displayed Last Modified By: Bernadine Castro RN 10/02/20 15:30:07 Case Comments <None> Finalized By: KAMILLA JARA Document Signatures Signed By: SACHA MODI RN 10/03/20 13:00 Bernadine Castro RN 10/02/20 17:16 KAMILLA JARA 10/04/20 10:26 Unfinalized History Date/Time Username Reason for Unfinalizing Freetext Reason for Unfinalizing 10/03/20 12:59 WASSONSY Correct Documentation 10/04/20 10:23 WATCHONG Correct Billing Electronically signed by [facility] Conversion Clinical Research Associate Cerner at 02/01/2023 6:56 PM CDT documented in this encounter Plan of Treatment Not on file documented as of this encounter Visit Diagnoses Not on filedocumented in this encounter Care Teams Base Wad Operator Adjuster Relationship Specialty Start Date End Date Mumtaz Larson MD [address] [place] [id number] PCP - General Family Medicine 08/26/22 documented as of this encounter
--- OUTSIDE RECORDS SUMMARY | 2025-06-16 09:39 | XMS_ITS | Encounter Summary ---
Author Organization [employer] ([place], [place], [place], [place]) Address [address] [place] [address] Care Team Providers Care Oil Filters Inspector Name Role Phone Mumtaz Larson MD Primary Care Provider + [phone] Encounter Details Date Type Department Care Team (Late st Contact Info) Description 04/16/2022 Transcribed Document [facility] [place] Family Medicine [address] [place] [address] ProviderGabriel MD [address] [place] [address] Social History Tobacco Use Types Packs/Day Years [...] Date Macario rded Speak language other than South African at home Not on file 10/29/2023 Want [...] Cerner Conversion Note - Historical Provider, - 04/16/2022 4:16 PM CDT Discharge Summary, PT Entered On: 04/16/2022 16:18 EDT Performed On: 04/16/2022 16:16 EDT by LIZETT SOSA, PT Discharge Summary Discharge Summary Provider Notified : Nursing Reason for Discharge : Discharged from hospital Discharged to, Therapy : Home, with family care Discharge Summary Comment, PT : Pt is a 66-year-old male s/p R eye ptosis and suspected myasthenia gravis. he was receiving skilled PTx to address concerns for decreased endurance and impaired ambulation. Pt has now discharged from the hospital this PM to home w/ family care. During last PTx session, he ambulated 150' w/ cane and Sup, plus an additional 150' w/ Tresa and RWx. Pt did not attempt stair training at time of admission, but reported he did not have to ascend/descend stairs for home set up. LIZETT SOSA, PT - 04/16/2022 16:16 EDT Short Term Goals Transfer STG Grid Goal #1 Destination : Chair, with arms Type : Other: step-to Assist : Independent, complete Date to Meet : 04/14/2022 EDT Goal Status : Not met LIZETT SOSA, PT - 04/16/2022 16:16 EDT Ambulation STG Grid Goal #1 Device : Other: TBD Distance : 200' Assist : Supervision or set-up Date to Meet : 04/14/2022 EDT Goal Status : Goal met Date Met : 04/16/2022 EDT LIZETT SOSA PT - 04/16/2022 16:16 EDT Stairs STG Grid Goal #1 Device : None Number of Steps : 6 Handrail(s) : One handrail Assist : Assist, minimal Date to Meet : 04/14/2022 EDT Goal Status : Not Met LIZETT SOSA, PT - 04/16/2022 16:16 EDT [employer] Goals Ambulation LTG Grid Goal #1 Device : None Distance : 300' Assist : Independent, complete Date to Meet : 04/21/2022 EDT Goal Status : Not met LIZETT SOSA, PT - 04/16/2022 16:16 EDT Stairs LTG Grid Goal #1 Device : None Number of Steps : 12 Handrail(s) : One handrail Assist : Independent, complete Date to Meet : 04/21/2022 EDT Goal Status : Not met LIZETT SOSA, PT - 04/16/2022 16:16 EDT documented in this encounter Plan of Treatment Not on file documented as of this encounter Visit Diagnoses Not on filedocumented in this encounter Care Teams Oil Filters Inspector Relationship Specialty Start Date End Date Mumtaz Larson MD [address] [facility] [address] [place] [id number] PCP - General Family Medicine 08/26/22 documented as of this encounter
--- OUTSIDE RECORDS SUMMARY | 2025-06-16 09:39 | XMS_ITS | Encounter Summary ---
Author Organization [employer] ([place], [place], [place], [place]) Address [address] [place] [address] Care Team Providers Care Hydraulics Engineer Name Role Phone Mumtaz Larson MD Primary Care Provider + [phone] Encounter Details Date Type Department Care Team (Late st Contact Info) Description 04/16/2022 Transcribed Document [facility] [place] [address] [place] [address] ProviderGabriel MD [address] [place] [address] Social History Tobacco Use Types Packs/Day Years [...] Date Macario rded Speak language other than Greenlandic at home Not on file 10/29/2023 Want [...] Conversion Note - Historical Provider, - 04/16/2022 1:11 PM CDT Patient Education Materials Follows: 3 Vincent Steps to Take While Waiting for Your COVID-19 Test Result To help stop the spread of COVID-19, take these 3 vincent steps NOW while waiting for your test results: 1. Stay home and monitor your health. Stay home and monitor your health to help protect your friends, family, and others from possibly getting COVID-19 from you. Stay home and away from others: ??? If possible, stay away from others, especially people who are at higher risk for getting very sick from COVID-19, such as older adults and people with other medical conditions. ??? If you have been in contact with someone with COVID-19, stay home and away from others for 14 days after your last contact with that person. Follow the recommendations of your local public health department if you need to quarantine. ??? If you have a fever, cough or other symptoms of COVID-19, stay home and away from others (except to get medical care). Monitor your health: ??? Watch for fever, cough, shortness of breath, or other symptoms of COVID-19. Remember, symptoms may appear 2?14 days after exposure to COVID-19 and can include: ? Fever or chills ? Cough ? Shortness of breath or difficulty breathing ? Tiredness ? Muscle or body aches ? Headache ? New loss of taste or smell ? Sore throat ? Congestion or runny nose ? Nausea or vomiting ? Diarrhea 2. Think about the people you have recently been around. If you are diagnosed with COVID-19, a public health worker may call you to check on your health, discuss who you have been around, and ask where you spent time while you may have been able to spread COVID-19 to others. While you wait for your COVID-19 test result, think about everyone you have been around recently. This will be important information to give health workers if your test is positive. Complete the information on the back of this page to help you remember everyone you have been around. 3. Answer the phone call from the health department. If a public health worker calls you, answer the call to help slow the spread of COVID-19 in your community. ??? Discussions with health department staff are confidential. This means that your personal and medical information will be kept private and only shared with those who may need to know, like your health care provider. ??? Your name will not be shared with those you came in contact with. The health department will only notify people you were in close contact with (within 6 feet for more than 15 minutes) that they might have been exposed to COVID-19. Think about the people you have recently been around If you test positive and are diagnosed with COVID-19, someone from the health department may call to check-in on your health, discuss who you have been around, and ask where you spent time while you may have been able to spread COVID-19 to others. This form can help you think about people you have recently been around so you will be ready if a public health worker calls you. Things to think about. Have you: ??? Gone to work or school? Gotten together with others (eaten out at a restaurant, gone out for drinks, exercised with others or gone to a gym, had friends or family over to your house, volunteered, gone to a libertarian, pool, or park)? Gone to a store in person (e.g., grocery store, mall)? Gone to in-person appointments (e.g., salon, [place], doctor's or dentist's office)? Ridden in a car with others (e.g., rideshare) or taken public transportation? Been inside a confucianism, judaism, amish or other places of synagogue? Who lives with you? Who have you been around (less than 6 feet for a total of 15 minutes or more) in the last 10 days? (You may have more people to list than the space provided. If so, write on the front of this sheet or a separate piece of paper.) Name ??? Phone number ??? Date you last saw them ??? Where you last saw them Name ??? Phone number ??? Date you last saw them ??? Where you last saw them Name ??? Phone number ??? Date you last saw them ??? Where you last saw them Name ??? Phone number ??? Date you last saw them ??? Where you last saw them Name ??? Phone number ??? Date you last saw them ??? Where you last saw them What have you done in the last 10 days with other people? Activity ??? Location ??? Date Activity ??? Location ??? Date Activity ??? Location ??? Date Activity ??? Location ??? Date Activity ??? Location ??? Date Centers for Disease Control and Prevention cdc.gov/coronavirus 04/25/2021 This information is not intended to replace advice given to you by your health care provider. Make sure you discuss any questions you have with your health care provider. Document Revised: 04/30/2021 Document Reviewed: 04/30/2021 Elsevier Patient Education ? 2020 Elsevier Inc. Endocrinology Correction Insulin Correction insulin, also called a supplemental dose, is a small amount of insulin that can be used to lower your blood sugar (glucose) if it is too high. This dose brings your glucose level back to the target range. You will be instructed to check your glucose at certain times of the day and to use correction insulin as needed to lower your blood glucose. Correction insulin is primarily used as part of diabetes management. It may also be prescribed for people who do not have diabetes. What is a correction scale? A correction scale, also called a sliding scale, is prescribed by your health care provider to help you determine when you need correction insulin. Your correction scale is based on your individual treatment goals, and it has two parts: ??? Ranges of blood glucose levels. ??? How much correction insulin to give yourself if your blood sugar falls within a certain range. If your blood glucose is in your desired range, you will not need correction insulin. What type of insulin do I need? You may be prescribed rapid-acting or short-acting insulin as correction insulin. Talk with your health care provider or pharmacist about which type of correction insulin to take and when to take it. Rapid-acting insulin This insulin: ??? Starts working in the body (onset) in as little as 15 minutes. ??? Is at its highest strength (peak) in 1.5?2 hours. ??? Lasts (duration) for 4?5 hours. Short-acting insulin This insulin: ??? Starts working in the body (onset) in about 30 minutes. ??? Is at its highest strength (peak) in 2?3 hours. ??? Lasts (duration) for 3?6 hours. How do I manage my blood glucose with correction insulin? Giving a correction dose ??? Check your blood glucose as directed by your health care provider. ??? Use your correction scale to find the range that your blood glucose is in. ??? Identify the units of insulin that match your blood glucose range. ??? Give yourself the dose of correction insulin that your health care provider has prescribed in your correction scale. Always make sure you are using the right type of insulin. Keeping a blood glucose log ??? Write down your blood glucose test results and the amount of insulin that you give yourself. Do this every time you check blood glucose or take insulin. Bring this log with you to your medical visits. This information will help your health care provider manage your medicines. ??? Note anything that may affect your blood glucose, such as: ? Changes in normal exercise or activity. ? Changes in your normal schedule, such as changes in your sleep routine, going on vacation, changing your diet, or holidays. ? New [id number] or prescription medicines. ? Illness, stress, or anxiety. ? Changes in the time that you took your medicine or insulin. ? Changes in your meals, such as skipping a meal, having a late meal, or dining out. ? Eating things that may affect blood glucose, such as snacks, meal portions that are larger than normal, drinks that contain sugar, or eating less than usual. Why do I need correction insulin if I do not have diabetes? If you do not have diabetes, your health care provider may prescribe insulin because: ??? Keeping your blood glucose in the target range is important for your overall health. ??? You are taking medicines that cause your blood glucose to be higher than normal. Contact a health care provider if: ??? You have high blood glucose that you are not able to correct with correction insulin. ??? You develop a low blood glucose that you are not able to treat yourself. ??? Your blood glucose is often too low. Get help right away if: ??? You become unresponsive. If this happens, someone else should call emergency services (911 in the [place] right away. ??? Your blood glucose is lower than 54 mg/dL (3.0 mmol/L). ??? You become confused or you have trouble thinking clearly. ??? You have difficulty breathing. Summary ??? Correction insulin is primarily used in diabetes management. It can also be prescribed for people who do not have diabetes. ??? Correction insulin is a small amount of insulin that can be used to lower your blood glucose if it is too high. It brings your glucose level to the target range. ??? You will be instructed to check your blood glucose at certain times of the day and to use correction insulin as needed. Always keep a log of your blood glucose values and the amount of insulin you take. ??? Talk with your health care provider or pharmacist about the type of correction insulin to take and when to take it. This information is not intended to replace advice given to you by your health care provider. Make sure you discuss any questions you have with your health care provider. Document Revised: 08/05/2020 Document Reviewed: 08/05/2020 Elsevier Patient Education ? 2020 [employer] Immunology Myasthenia Gravis Myasthenia gravis (MG) is a long-term (chronic) condition that causes weakness in the muscles you can control (voluntary muscles). MG can affect any voluntary muscle. The muscles most often affected are the ones that control: ??? Eye movement. ??? Facial movements. ??? Swallowing. MG is a disease in which the body's disease-fighting system (immune system) attacks its own healthy tissues (autoimmune disease). When you have MG, your immune system makes proteins (antibodies) that block the chemical (acetylcholine) that your body needs to send nerve signals to your muscles. This causes muscle weakness. What are the causes? The exact cause of MG is not known. What increases the risk? The following factors may make you more likely to develop this condition: ??? Having an enlarged thymus gland. The thymus gland is located under the breastbone. It makes certain cells for the immune system. ??? Having a family history of MG. What are the signs or symptoms? Symptoms of MG may include: ??? Drooping eyelids. ??? Double vision. ??? Muscle weakness that gets worse with activity and gets better after rest. ??? Difficulty walking. ??? Trouble chewing and swallowing. ??? Trouble making facial expressions. ??? Slurred speech. ??? Weakness of the arms, hands, and legs. Sudden, severe difficulty breathing (myasthenic crisis) may develop after having: ??? An infection. ??? A fever. ??? A bad reaction to a medicine. Myasthenic crisis requires emergency breathing support. Sometimes symptoms of MG go away for a while (remission) and then come back later. How is this diagnosed? This condition may be diagnosed based on: ??? Your symptoms and medical history. ??? A physical exam. ??? Blood tests. ??? Tests of your muscle strength and function. ??? Imaging tests, such as a CT scan or an MRI. How is this treated? The goal of treatment is to improve muscle strength. Treatment may include: ??? Taking medicine. ??? Making lifestyle changes that focus on saving your energy. ??? Doing physical therapy to gain strength. ??? Having surgery to remove the thymus gland (thymectomy). This may result in a long remission for some people. ??? Having a procedure to remove the acetylcholine antibodies (plasmapheresis). ??? Getting emergency breathing support, if you experience myasthenic crisis. If you experience remission, you may be able to stop treatment and then resume treatment when your symptoms return. Follow these instructions at home: ??? Take ffar-egd-tqtkjfb and prescription medicines only as told by your health care provider. ??? Get plenty of rest and sleep. Take frequent breaks to rest your eyes, especially when in bright light or working on a computer. ??? Maintain a healthy diet and a healthy weight. Work with your health care provider or a diet and animal nutritionist (dietitian) if you need help. ??? Do exercises as told by your health care provider or physical therapist. ??? Do not use any products that contain nicotine or tobacco, such as cigarettes and e-cigarettes. If you need help quitting, ask your health care provider. ??? Prevent infections by: ? Washing your hands often with soap and water. If soap and water are not available, use hand senior environmental scientist. ? Avoiding contact with other people who are sick. ? Avoiding touching your eyes, nose, and mouth. ? Cleaning surfaces in your home that are touched often using a disinfectant. ??? Keep all follow-up visits as told by your health care provider. This is important. Contact a health care provider if: ??? Your symptoms change or get worse, especially after having a fever or infection. Get help right away if: ??? You have trouble breathing. Summary ??? Myasthenia gravis (MG) is a long-term (chronic) condition that causes weakness in the muscles you can control (voluntary muscles). ??? A symptom of MG is muscle weakness that gets worse with activity and gets better after rest. ??? Sudden, severe difficulty breathing (myasthenic crisis) may develop after having an infection, a fever, or a bad reaction to a medicine. ??? The goal of treatment is to improve muscle strength. Treatment may include medicines, lifestyle changes, physical therapy, surgery, plasmapheresis, or emergency breathing support. This information is not intended to replace advice given to you by your health care provider. Make sure you discuss any questions you have with your health care provider. Document Revised: 10/17/2018 Document Reviewed: 10/17/2018 [employer] Patient Education ? 2020 [employer] Infectious Disease 3 Vincent Steps to Take While Waiting for Your COVID-19 Test Result To help stop the spread of COVID-19, take these 3 vincent steps NOW while waiting for your test results: 1. Stay home and monitor your health. Stay home and monitor your health to help protect your friends, family, and others from possibly getting COVID-19 from you. Stay home and away from others: ??? If possible, stay away from others, especially people who are at higher risk for getting very sick from COVID-19, such as older adults and people with other medical conditions. ??? If you have been in contact with someone with COVID-19, stay home and away from others for 14 days after your last contact with that person. Follow the recommendations of your local public health department if you need to quarantine. ??? If you have a fever, cough or other symptoms of COVID-19, stay home and away from others (except to get medical care). Monitor your health: ??? Watch for fever, cough, shortness of breath, or other symptoms of COVID-19. Remember, symptoms may appear 2?14 days after exposure to COVID-19 and can include: ? Fever or chills ? Cough ? Shortness of breath or difficulty breathing ? Tiredness ? Muscle or body aches ? Headache ? New loss of taste or smell ? Sore throat ? Congestion or runny nose ? Nausea or vomiting ? Diarrhea 2. Think about the people you have recently been around. If you are diagnosed with COVID-19, a public health worker may call you to check on your health, discuss who you have been around, and ask where you spent time while you may have been able to spread COVID-19 to others. While you wait for your COVID-19 test result, think about everyone you have been around recently. This will be important information to give health workers if your test is positive. Complete the information on the back of this page to help you remember everyone you have been around. 3. Answer the phone call from the health department. If a public health worker calls you, answer the call to help slow the spread of COVID-19 in your community. ??? Discussions with health department staff are confidential. This means that your personal and medical information will be kept private and only shared with those who may need to know, like your health care provider. ??? Your name will not be shared with those you came in contact with. The health department will only notify people you were in close contact with (within 6 feet for more than 15 minutes) that they might have been exposed to COVID-19. Think about the people you have recently been around If you test positive and are diagnosed with COVID-19, someone from the health department may call to check-in on your health, discuss who you have been around, and ask where you spent time while you may have been able to spread COVID-19 to others. This form can help you think about people you have recently been around so you will be ready if a public health worker calls you. Things to think about. Have you: ??? Gone to work or school? Gotten together with others (eaten out at a restaurant, gone out for drinks, exercised with others or gone to a gym, had friends or family over to your house, volunteered, gone to a libertarian, pool, or park)? Gone to a store in person (e.g., grocery store, mall)? Gone to in-person appointments (e.g., salon, [place], doctor's or dentist's office)? Ridden in a car with others (e.g., rideshare) or taken public transportation? Been inside a confucianism, judaism, amish or other places of synagogue? Who lives with you? Who have you been around (less than 6 feet for a total of 15 minutes or more) in the last 10 days? (You may have more people to list than the space provided. If so, write on the front of this sheet or a separate piece of paper.) Name ??? Phone number ??? Date you last saw them ??? Where you last saw them Name ??? Phone number ??? Date you last saw them ??? Where you last saw them Name ??? Phone number ??? Date you last saw them ??? Where you last saw them Name ??? Phone number ??? Date you last saw them ??? Where you last saw them Name ??? Phone number ??? Date you last saw them ??? Where you last saw them What have you done in the last 10 days with other people? Activity ??? Location ??? Date Activity ??? Location ??? Date Activity ??? Location ??? Date Activity ??? Location ??? Date Activity ??? Location ??? Date Centers for Disease Control and Prevention cdc.gov/[email or web address] 04/25/2021 This information is not intended to replace advice given to you by your health care provider. Make sure you discuss any questions you have with your health care provider. Document Revised: 04/30/2021 Document Reviewed: 04/30/2021 Elsevier Patient Education ? 2020 Else[employer] Inc. documented in this encounter Plan of Treatment Not on file documented as of this encounter Visit Diagnoses Not on filedocumented in this encounter Care Teams Hydraulics Engineer Relationship Specialty Start Date End Date Mumtaz Larson MD [address] [facility] [address] [place] [id number] PCP - General Family Medicine 08/26/22 documented as of this encounter
--- OUTSIDE RECORDS SUMMARY | 2025-06-16 09:39 | XMS_ITS | Encounter Summary ---
Author Organization [employer] ([place], [place], [place], [place]) Address [address] [place] [address] Care Team Providers Care Beach Expert Name Role Phone Mumtaz Larson MD Primary Care Provider + [phone] Encounter Details Date Type Department Care Team (Late st Contact Info) Description 04/11/2022 Transcribed Document [facility] Pulm & Critical Care Medicine [address] [place] [id number] Teo Mcintosh MD [address] [place] [address] Social History Tobacco Use Types Packs/Day Years [...] Date Macario rded Speak language other than Malaysian at home Not on file 10/29/2023 Want [...] Miscellaneous Notes * Cerner Conversion Note - Teo Mcintosh MD - 04/11/2022 3:32 PM EDT Patient: TIEN DEJESUS Age: 66 years Sex: Male : 1955 Associated Diagnoses: None Author: TEO MCINTOSH MD REQ: Dr Steele RE: Myesthenia Gravis CC: [...] of Systems Unable to obtain Health Status Current medications: Medications (50) Active Scheduled: (21) #NaCl 0.9% *FLUSH* inj 10 mL 10 mL, IV Push, Q12H #NaCl 0.9% *FLUSH* inj 10 mL 10 mL, IntraCATHeter, Q12H atenolol 50 mg tab 100 mg 2 Tab, Oral, Daily bisacodyl 10 mg supp 10 mg 1 Supp, Rectal, 1-Time chlorthalidone 25 mg tab 25 mg 1 [...] mL 1,000 mL, IntraVENous, 50 mL/Hr PRN: (28) #NaCl 0.9% *FLUSH* inj 10 mL 10 mL, IV Push, See Comment acetaminophen 325 mg tab 650 mg 2 Tab, Oral, Q4H albuterol-ipratropium inh 3 mL 3 mL, Nebulized Inhalation, RT_Q6H alteplase + sterile water 1 mL 1 mg, IntraCATHeter, 1-Time bisacodyl EC 5 mg tab 5 mg 1 Tab, Oral, Daily calcium gluconate 2 Gram 100 mL, IV Piggyback, Daily calcium gluconate 2 Gram 100 mL, IV Piggyback, Q12H calcium gluconate/NaCl 1 Gram 100 mL, IV Piggyback, Daily dextrose 50% 25 g/50 mL inj [...] liq 30 mL 30 mL, Oral, Daily magnesium sulfate 2 Gram 50 mL, IV Piggyback, Daily magnesium sulfate 2 Gram 50 mL, IV Piggyback, Q2H ondansetron 4 mg/2 mL inj 4 mg 2 mL, IV Push, Q4H oxyCODONE 5 mg tab 5 mg 1 Tab, Oral, Q4H potassium bicarb efferves 20 mEq dis tab 20 mEq 1 Tab, Feeding Tube, Q2H potassium bicarb efferves 20 mEq dis tab 60 mEq 3 Tab, Feeding Tube, Q2H potassium chloride 10 mEq 50 mL, IV Piggyback, Q1H sodium phosphate 15 mMole 5 mL, IV Piggyback, Daily sodium phosphate 15 mMole 5 mL, IV Piggyback, Q6H zolpidem 5 mg tab 5 mg 1 Tab, Oral, At Bedtime Physical Examination VS/Measurements Vitals Signs (last 24 hrs) Last Charted Minimum Maximum Mon HR 89 (APR 11 14:00) 40 (APR 11 07:03) 89 (APR 11 14:00) Resp Rate H 28 (APR 11 14:00) 17 (APR 10 16:01) H 52 (APR 10 23:00) SBP H 170 (APR 11 14:00) 112 (APR 10 22:00) H 170 (APR 11 14:00) DBP 79 (APR 11 14:00) 64 (APR 11 06:00) H 98 (APR 11 12:00) MAP 113 (APR 11 14:00) 87 (APR 10 22:00) 117 (VERO 25 12:00) SpO2 96 (MAR 25 14:00) L 90 (MAR 25 10:00) 97 (MAR 24 20:00) Intake & Output Totals Last 24 [...] reactive to light, Normal conjunctiva, R eye ptosis. HENT: Normocephalic, Oral mucosa is moist. Neck: Supple, No lymphadenopathy. Respiratory: dec bilateral bases, intermit accessory muscle use/abdominal use. Cardiovascular: Normal rate, Regular rhythm, No edema. Gastrointestinal: Soft, Non-tender, Non-distended, Normal bowel sounds. Genitourinary: Support: Urinary catheter ( Indwelling ). Integumentary: Warm, Dry, [place]. Neurologic: Alert, Oriented, Anxious when not on bipap . Psychiatric: Cooperative, Appropriate mood & affect. Review / Management Results review: Labs (Last four charted values) WBC 5.2 (VERO 25) 7.2 (VERO 24) 8.8 (VERO 23) 7.0 (VERO 22) HB L 12.9 (VERO 25) L 12.6 (VERO 24) 14.8 (VERO 23) 17.1 (VERO 22) HCT L 39.6 (VERO 25) L 38.5 (VERO 24) 43.9 (VERO 23) 50.8 (VERO 22) Plt L 161 (VERO 25) 235 (VERO 24) 326 (VERO 23) 356 (VERO 22) Na 144 (VERO 25) H 147 (VERO 24) 144 (VERO 23) 138 (VERO 22) K L 3.3 (VERO 25) L 3.0 (VERO 24) 3.6 (VERO [...] (VERO 24) H 39 (VERO 22) 26 (VEOR 20) ALT H 367 (VERO 25) H [...] 3.7 (VERO 22) 4.4 (VERO 20) . Blood Gases (Current Encounter/Past 24 Hours) pH Art 7.50 HI 04/11/2022 08:00 pCO2 Art 38.8 04/11/2022 07:46 pO2 Art 62.3 LOW 04/11/2022 08:00 HCO3 Art 30.5 HI 04/11/2022 08:00 BE Art 6.9 SC 04/11/2022 08:00 sO2 Art 94.0 LOW 04/11/2022 [...] 04/11/2022 07:46 Radiology Results (Last 48 hours) [id number] -- 04/06/2022 15:42 CT Chest WO W (04/09/2022 15:09) Result: [...] interpreted, and dictated by Sherif Chavis MD US Liver Or Hepatic (04/11/2022 10:34) Result: LIVER ULTRASOUNDHISTORY: Elevated LFTs.PROCEDURE: Ultrasound images of the right upper quadrant were obtained.FINDINGS: The liver parenchyma is fatty infiltrated. The liver ismarkedly enlarged at 22 cm. The gallbladder is contracted. Thegallbladder wall is unremarkable. There are no gall stones. The commonduct is normal.IMPRESSION: Moderate enlarged fatty infiltrated liver.Images reviewed, interpreted, and dictated by Dr. Sherif Chavis.Transcribed by Joni Rea PA-C.I have personally viewed, interpreted and dictated the examination. Ihjohn read and agree with the above final transcribed report. Mechanics 04/08 NIFs -40 x 3 with [...] unable to tolerate laying flat) Acetylcholine switchboard operator receptionist studies pending On Mestinon Also receiving Solumedrol and IVIG day #4 Glycemic control: on correction insulin, target glucose 140-180 mg/dL Prophylaxis: Heparin and Pepcid Nutrition: TF via corpak (terminates in stomach), may increase TF to 30ml/hr today Also on free water at 50ml/hr On bowel reg, will give suppository today At risk for respiratory complications AM orders placed CODE STATUS: FULL CODE Disposition: ICU 77 minutes critical care time excluding procedures. Discussed with KARLA UMANA, patient's at bedside and Dr. Cheek (neurologist). documented in this encounter Plan of Treatment Not on file documented as of this encounter Visit Diagnoses Not on filedocumented in this encounter Care Teams Beach Expert Relationship Specialty Start Date End Date Mumtaz Larson MD [address] [place] [facility] [address] [place] [phone] PCP - General Family Medicine 08/26/22 documented as of this encounter
--- OUTSIDE RECORDS SUMMARY | 2025-06-16 09:39 | XMS_ITS | Encounter Summary ---
Author Organization [employer] ([place], [place], [place], [place]) Address [address] [place] [address] Care Team Providers Care Customer Experience Intern Name Role Phone Mumtaz Larson MD Primary Care Provider + [phone] Encounter Details Date Type Department Care Team (Late st Contact Info) Description 04/16/2022 Transcribed Document [facility] Radiology [address] [place] [address] Yanni Menendez MD [address] [place] [address] [place] [address] Social History Tobacco Use Types Packs/Day Years [...] Date Macario rded Speak language other than Indonesian at home Not on file 10/29/2023 Want [...] Miscellaneous Notes * Cerner Conversion Note - Yanni Menendez MD - 04/16/2022 6:34 PM EDT Patient: TIEN GARCIA Age: 66 years Sex: Male : 1955 Associated Diagnoses: None Author: YANNI MENENDEZ MD-INT Discharge dictated. #[id number]. documented in this encounter Plan of Treatment Not on file documented as of this encounter Visit Diagnoses Not on filedocumented in this encounter Care Teams Customer Experience Intern Relationship Specialty Start Date End Date Mumtaz Larson MD [address] [facility] [address] [place] [phone] PCP - General Family Medicine 08/26/22 documented as of this encounter
--- OUTSIDE RECORDS SUMMARY | 2025-06-16 09:39 | XMS_ITS | Encounter Summary ---
Author Organization [employer] ([place], [place], [place], [place]) Address [address] [place] [address] Care Team Providers Care Business Executive Name Role Phone Mumtaz Larson MD Primary Care Provider + [phone] Encounter Details Date Type Department Care Team (Late st Contact Info) Description 10/02/2020 Transcribed Document [facility] [place] Family Medicine [address] [place] [address] ProviderGabriel MD [address] [place], [place] [address] Social History Tobacco Use Types Packs/Day Years Used Date Smoking Tobacco: Never Assessed Sex and Gender Information Value Date Recorded Sex Assigned at Male 05/13/2022 12:59 PM CDT Legal Sex Male 1:44 PM CDT Gender Identity Male 05/13/2022 12:59 PM CDT Sexual Orientation Not on file documented as of this encounter Miscellaneous Notes * Cerner Conversion Note - Gabriel ProviderMD - 10/02/2020 5:08 PM TOWER ERECTOR Pain Assessment Entered On: 10/03/2020 4:16 EST Performed On: 10/03/2020 3:07 EST by Suni Mclain RN Intervention Information: HYDROmorphone Performed by Suni Mclain RN on 10/03/2020 02:37:00 EST HYDROmorphone,0.5mg IV Push,Forearm Left,Pain (Moderate 4-6) Pain Assessment Pain Assessment : Follow-up assessment Pain Scale Used : 0-10 Scale Suni Mclain RN - 10/03/2020 4:16 EST Pain Scale Intensity : 2 Suni Mclain RN - 10/03/2020 4:16 EST Image 4 - Images currently included in the form version of this document have not been included in the text rendition version of the form. documented in this encounter Plan of Treatment Not on file documented as of this encounter Visit Diagnoses Not on filedocumented in this encounter Care Teams Business Executive Relationship Specialty Start Date End Date Mumtaz Larson MD [address] [facility] [address] [place] [phone] PCP - General Family Medicine 08/26/22 documented as of this encounter
--- OUTSIDE RECORDS SUMMARY | 2025-06-16 09:39 | XMS_ITS | Encounter Summary ---
Author Organization [employer] ([place], [place], [place], [place]) Address [address] [place] [address] Care Team Providers Care Manager Community Relations Name Role Phone Mumtaz Larson MD Primary Care Provider + [phone] Encounter Details Date Type Department Care Team (Late st Contact Info) Description 10/02/2020 Transcribed Document [facility] Family Medicine [address] [place] [address] ProviderGabriel MD [address] [place], [place] [address] Social History Tobacco Use Types Packs/Day Years [...] - Gabriel ProviderMD - 10/02/2020 5:08 PM CANDY CATCHER Pain Assessment Entered On: 10/03/2020 4:16 EST Performed On: 10/02/2020 21:57 EST by Suni Mclain RN Intervention Information: oxyCODONE Performed by Suni Mclain RN on 10/02/2020 20:57:00 EST oxyCODONE,10mg Oral,Pain (Moderate 4-6) Pain Assessment Pain Assessment : Follow-up assessment Pain Scale Used : 0-10 Scale Suni Mclain RN - 10/03/2020 4:16 EST Pain Scale Intensity : 6 Suni Mclain, RN - 10/03/2020 4:16 EST Image 4 - Images currently included in the form version of this document have not been included in the text rendition version of the form. documented in this encounter Plan of Treatment Not on file documented as of this encounter Visit Diagnoses Not on filedocumented in this encounter Care Teams Manager Community Relations Relationship Specialty Start Date End Date Mumtaz Larson MD [address] [facility] [address] [place] [phone] PCP - General Family Medicine 08/26/22 documented as of this encounter
--- OUTSIDE RECORDS SUMMARY | 2025-06-16 09:39 | XMS_ITS | Encounter Summary ---
Author Organization [employer] ([place], [place], [place], [place]) Address [address] [place] [address] Care Team Providers Care Necktie Centralizing Machine Operator Name Role Phone Mumtaz Larson MD Primary Care Provider + [phone] Encounter Details Date Type Department Care Team (Late st Contact Info) Description 04/07/2022 Transcribed Document [facility] Family Medicine [address] [place] [address] ProviderGabriel MD [address] [place] [address] Social History Tobacco Use Types Packs/Day Years [...] Conversion Note - Historical Provider, - 04/07/2022 10:[address] [facility] DIRECTOR DATA MANAGEMENT Charges Entered On: 04/07/2022 10:34 EDT Performed On: 04/07/2022 10:33 EDT by HOUSTON MCNEIL SLP [facility] DIRECTOR DATA MANAGEMENT Charges Screen For Speech Therapy : 1 HOUSTON MCNEIL SLP - 04/07/2022 10:33 EDT documented in this encounter Plan of Treatment Not on file documented as of this encounter Visit Diagnoses Not on filedocumented in this encounter Care Teams Necktie Centralizing Machine Operator Relationship Specialty Start Date End Date Mumtaz Larson MD [address] [place] [facility] [address] [place] [phone] PCP - General Family Medicine 08/26/22 documented as of this encounter
--- OUTSIDE RECORDS SUMMARY | 2025-06-16 09:39 | XMS_ITS | Encounter Summary ---
Author Organization [employer] ([place], [place], [place], [place]) Address [address] [place] [address] Care Team Providers Care Career Development Engineer Name Role Phone Mumtaz Larson MD Primary Care Provider + [phone] Encounter Details Date Type Department Care Team (Late st Contact Info) Description 04/06/2022 Transcribed Document [facility] Family Medicine [address] [place] [address] ProviderGabriel MD [address] [place] [address] Social History Tobacco Use Types Packs/Day Years [...] Date Macario rded Speak language other than Ghanaian at home Not on file 10/29/2023 Want [...] Conversion Note - Historical Provider, - 04/06/2022 9:00 PM CDT NIH Stroke Scale *Q Entered On: 04/07/2022 1:58 EDT Performed On: 04/06/2022 21:00 EDT by Lynda Dimas NON EMP RN NIH Stroke Scale *Q Time of Assessment : 04/06/2022 20:00 EDT NIH Level of Consciousness (1A) : Alert NIH LOC Questions (1B) : Answers both questions correctly NIH LOC Commands (1C) : Performs both tasks correctly NIH Best Gaze (2) : Normal NIH Visual (3) : No visual loss NIH Facial Palsy (4) : Minor paralysis NIH Motor Arm, Left (5A) : No drift NIH Motor Arm, Right (5B) : No drift NIH Motor Leg, Left (6A) : No drift NIH Motor Leg, Right (6B) : No drift NIH Limb Ataxia (7) : Absent NIH Sensory (8) : Normal NIH Best Language (9) : No aphasia NIH Dysarthria (10) : Normal Extinction and Inattention (11) : No abnormality NIH Scale Score : 1 Lynda Dimas NON EMP RN - 04/07/2022 1:56 EDT documented in this encounter Plan of Treatment Not on file documented as of this encounter Visit Diagnoses Not on filedocumented in this encounter Care Teams Career Development Engineer Relationship Specialty Start Date End Date Mumtaz Larson MD [address] [facility] [address] [place] [phone] PCP - General Family Medicine 08/26/22 documented as of this encounter
--- OUTSIDE RECORDS SUMMARY | 2025-06-16 09:39 | XMS_ITS | Encounter Summary ---
Author Organization [employer] ([place], [place], [place], [place]) Address [address] [place] [address] Care Team Providers Care Drafter Apprentice Name Role Phone Mumtaz Larson MD Primary Care Provider + [phone] Encounter Details Date Type Department Care Team (Late st Contact Info) Description 10/02/2020 Transcribed Document [facility] [place] Medicine [address] [place] [address] ProviderGabriel MD [address] [place], [place] [address] Social History Tobacco Use Types Packs/Day Years Used Date Smoking Tobacco: Never Assessed Sex and Gender Information Value Date Recorded Sex Assigned at Male 05/13/2022 12:59 PM CDT Legal Sex Male 1:44 PM CDT Gender Identity Male 05/13/2022 12:59 PM CDT Sexual Orientation Not on file documented as of this encounter Miscellaneous Notes * Cerner Conversion Note - Historical ProviderMD - 10/02/2020 5:08 PM DIRECTOR WORK Evaluation, Physical Therapy Entered On: 10/03/2020 9:41 EST Performed On: 10/03/2020 9:36 EST by ARMANDO LUO, Student-Physical Therapist General Information, PT Visit Type, PT : Initial evaluation Patient Orders : Order Date Order Ordering 10/02/2020 17:09 Physical Therapy Eval and Treat Ordered By: RUSLAN FRAZIER MD-SNU Active Diagnoses : 10/03/2020 12:00 Spondylolisthesis, lumbar region 10/02/2020 12:00 Spondylolisthesis, site unspecified Therapy Diagnosis, PT : Decreased independence with mobility. Onset of Problem, PT : 10/02/2020 EST Admission Date : 10/02/2020 06:11 Co-treated by, PT : Occupational Therapist Personal Devices : Personal Devices No Devices Recorded Assistive Devices : Assistive Devices No Devices Recorded Precautions in Place : Log roll precautions ARMANDO LUO Student-Physical Therapist - 10/03/2020 9:36 EST General Information Comment, PT : Dx: advanced spondylolisthesis of the lumbar spine L4-5 Hx: DM type II, arthritis, GERD, LUMMI, HTN, BRETT, microscopic colitis, prostate ca. Sx: L4-L5 transforaminal lumbar interbody fusion 10/02/2020 ARMANDO LUO Student-Physical Therapist - 10/03/2020 9:48 EST General Status Patient Received Status : Supine in bed Treatment Start Time : 10/03/2020 9:09 EST Patient Left Status : Sitting edge of bed, Communication board completed, All needs met and within reach RN/PCT Informed Comment : Stacy Pandya approved treatment. Treatment End Time : 10/03/2020 9:28 EST Treatment Time : 19 Minute(s) Actual Treatment Time : 19 Minute(s) ARMANDO LUO Student-Physical Therapist - 10/03/2020 9:36 EST History and Environment Living Situation, Therapy : Home Patient Lives With : Adult Child/Children, Family member(s), Spouse Persons Assisting Patient at Home : Child/Children, Spouse Professional Skilled Services : None Persons Providing Information : Patient Home Equipment Therapy, PT : Walker Home Setup : Multi-level home Stairs : Yes Stair Location(s) : Inside, Outside Inside Stairs, Number of Steps : 13 Outside Stairs, Number of Steps : 3 Railing Inside : Yes Railing Outside : Yes ARMANDO LUO Student-Physical Therapist - 10/03/2020 9:36 EST Prior Level of Function PT GRID Prior LOF Ambulation, Household : Independent Prior LOF Ambulation, Community : Independent Prior LOF Bed Mobility : Independent Prior LOF Toileting : Independent Prior LOF Transfer : Independent ARMANDO LUO Student-Physical Therapist - 10/03/2020 9:36 EST Intervention Summary O2 Pre-Intervention : Room air O2 During Intervention : Room air O2 Post-Intervention : Room air ARMANDO LUO Student-Physical Therapist - 10/03/2020 9:36 EST Upper Extremity Right UE Active ROM : WFL Left UE Active ROM : WFL ARMANDO LUO Student-Physical Therapist - 10/03/2020 9:41 EST Lower Extremity RLE Active ROM : WFL Right LE Strength : WFL LLE Active ROM : WFL Left LE Strength : WFL ARMANDO LUO Student-Physical Therapist - 10/03/2020 9:41 EST Functional Mobility Mobility Grid Bed Roll Right : Supervision/set-up Bed Scooting : Supervision/set-up Supine to Sit : Supervision/set-up Sit to Stand : Supervision/set-up Stand to Sit : Supervision/set-up ARMANDO LUO Student-Physical Therapist - 10/03/2020 9:41 EST Stand to Sit Device : Belt, gait ARMANDO LUO Student-Physical Therapist - 10/03/2020 9:41 EST Gait Training/Assessment, PT Weight Bearing Status Maintained : Yes Weight Bearing Status : Full ARMANDO LUO Student-Physical Therapist - 10/03/2020 9:41 EST Gait Assistance Level : Assist, minimal ARMANDO LUO Student-Physical Therapist - 10/03/2020 10:54 EST Walking Distance : 360' total with use of hallway railing. Pt declined to use a RWx but would benefit from using a RWx in further ambulation. Ambulatory Devices : None, Gait belt, Rails ARMANDO LUO Student-Physical Therapist - 10/03/2020 9:41 EST Activity Tolerance, PT Activity Tolerance, PT Activity #1 Activity : Stairs/Step Comment (Comment: up 6 5 in steps and down 4 6 in steps with bilateral hand rails [ARMANDO LUO Student-Physical Therapist - 10/03/2020 10:54 EST] ) ARMANDO LUO Student-Physical Therapist - 10/03/2020 10:54 EST Cognition Assessment, PT Orientation : Oriented x 4 ARMANDO LUO Student-Physical Therapist - 10/03/2020 9:41 EST Edu Topics Physical Therapy Education Grid Role of Physical Therapy : Verbalizes understanding Safety : Verbalizes understanding ARMANDO LUO Student-Physical Therapist - 10/03/2020 9:41 EST Indication Assesessment, PT Physical Therapy Indicated : Yes PT Problem List : Impaired, bed mobility, Impaired, gait, Impaired, stair mobility, Impaired, standing balance, Impaired, transfers Potential Barriers To Therapy : None evident Rehabilitation Potential : Good ARMANDO LUO Student-Physical Therapist - 10/03/2020 9:41 EST Plan of Care, PT PT Treatments Planned : Balance training, Bed mobility training, Gait training, Neuromuscular reeducation, Safety education, Stair training, Therapeutic exercises, Transfer training ARMANDO LUO Student-Physical Therapist - 10/03/2020 10:54 EST PT Frequency Rehab : Daily, twice (bid) PT Duration Rehab : Fourteen days ARMANDO LUO Student-Physical Therapist - 10/03/2020 9:45 EST PT Tx Plan/Goals Established w Patient : Yes ARMANDO LUO Student-Physical Therapist - 10/03/2020 9:41 EST Short Term Goals Ambulation STG Grid Goal #1 Device : Walker, front wheel Distance : 200' Assist : Supervision or set-up Date to Meet : 10/10/2020 EST Goal Status : Intial Goal ARMANDO LUO Student-Physical Therapist - 10/03/2020 10:54 EST Financial Operations Consultant Goals Ambulation LTG Grid Goal #1 Device : Walker, front wheel Distance : 400' Assist : Independent, modified Date to Meet : 10/17/2020 EST Goal Status : Intial Goal ARMANDO LUO Student-Physical Therapist - 10/03/2020 10:54 EST Treatment Note Subjective Comment : Pt agreed to treatment. Nsg. Pandya approved treatment. Additional Objective Information : Pt was supervision for all bed mobility and transfers. Pt ambulated 180' to the therapy gym with min A and no AD. Pt used the hallway railing for support during ambulation. Pt declined to use a RWx several times. Pt was educated that his ambulation would be safer with a RWx. Pt was educated to use his Wx at home and for long distances over the next few weeks. Pt then perfiormed 6 steps and decended 4 steps with supervision. Pt was supervision for stand to sit. Assessment : Pt presented with decreased balance and ability to ambualte independently. Pt requires skilled physical therapy to improve mobility. ARMANDO LUO Student-Physical Therapist - 10/03/2020 10:54 EST Plan for Treatment : Cont. PTx. PT has reviewed and agrees. PILLO MOREL, PT - 10/03/2020 11:37 EST Pain Assessment Pain Scaled Used : 0-10 Pain scale Pain Score Pre-Intervention : 7 Location : Back Pain Improved by : Medication ARMANDO LUO Student-Physical Therapist - 10/03/2020 10:51 EST Image 1 - Images currently included in the form version of this document have not been included in the text rendition version of the form. Anticipated Discharge Needs, OT/PT Recommend Continued Therapy at Discharge : Yes ARMANDO LUO Student-Physical Therapist - 10/03/2020 10:54 EST Anticipated Discharge to : Home, with home health (Comment: S1 [ARMANDO LUO Student-Physical Therapist - 10/03/2020 10:51 EST] ) ARMANDO LUO Student-Physical Therapist - 10/03/2020 10:[address] [facility] PT Charges PT Eval Moderate Complexity : 1 ARMANDO LUO Student-Physical Therapist - 10/03/2020 10:54 EST Electronically signed by Sherri [facility] Conversion Manager Monitoring Cerner at 02/01/2023 6:53 PM CDT documented in this encounter Plan of Treatment Not on file documented as of this encounter Visit Diagnoses Not on filedocumented in this encounter Care Teams Drafter Apprentice Relationship Specialty Start Date End Date Mumtaz Larson MD [address] [facility] [address] [place] [phone] PCP - General Family Medicine 08/26/22 documented as of this encounter
--- OUTSIDE RECORDS SUMMARY | 2025-06-16 09:39 | XMS_ITS | Encounter Summary ---
Author Organization [employer] ([place], [place], [place], [place]) Address [address] [place] [address] Care Team Providers Care Certified Green Building Engineer Name Role Phone Mumtaz Larson MD Primary Care Provider + [phone] Encounter Details Date Type Department Care Team (Late st Contact Info) Description 10/02/2020 Transcribed Document [facility] [place] Family Medicine [facility] [place] [address] ProviderGabriel MD [address] [place] [address] Social History Tobacco Use Types Packs/Day Years Used Date Smoking Tobacco: Never Assessed Sex and Gender Information Value Date Recorded Sex Assigned at Male 05/13/2022 12:59 PM CDT Legal Sex Male 1:44 PM CDT Gender Identity Male 05/13/2022 12:59 PM CDT Sexual Orientation Not on file documented as of this encounter Miscellaneous Notes * Cerner Conversion Note - Historical ProviderMD - 10/02/2020 6:07 AM EMPLOYMENT OFFICER Admission History, Adult Entered On: 10/02/2020 21:04 EST Performed On: 10/02/2020 6:07 EST by Suni Mclain RN Advance Directive Patient has Advance Directive *Q : No, patient refuses Advance Directive information Suni Mclain RN - 10/02/2020 20:57 EST Anesthesia/Transfusion History Family History of Anesthesia Reaction : No prior transfusion(s) Transfusion History : Prior anesthesia without reaction Family History of Anesthesia Reaction : None Suni Mclain RN - 10/02/2020 20:57 EST Education Topics, Admission Orientation DCP GENERIC CODE [...] Verbalizes understanding Visiting Policy : Verbalizes understanding Suni Mclain RN - 10/02/2020 20:57 EST Functional Assessment Living Situation : Home Current Home Treatments : BiPAP Suni Mclain RN - 10/02/2020 20:57 EST General Info Preferred Name : King Arrived From : Home Mode of Arrival on Unit : Ambulatory Legal Guardian : Spouse Support Person/Patient Lead Embedded Software Engineer : Yes Support Person/Pt Rep Name : Clare King - Support Person/Pt Rep Contact Information : [phone] Want Family/Rep/Phys Notified of Admit : No Emergency Contact #1 : `Clare King Emergency Contact #1 Phone Number : `[phone] Emergency Contact #1 Relationship : ` Emergency Contact #2 : none` Emergency Contact #2 Phone Number : none` Emergency Contact #2 Relationship : none` Information Obtained From : Patient Primary Language : Amharic Communication Barrier : None International Trade Specialist Needed : No Suni Mclain RN - 10/02/2020 20:57 EST Fall Risk Scales ABCs Fall Injury Risk Identification : Age, Coagulation, Surgery ABC Fall Injury Risk : Moderate to high injury risk JAVIER Hx Falls Immediate/Within 3 Months : No Javier Secondary Diagnosis : No JAVIER Use of Ambulatory Aid : Crutches/Cane/Walker JAVIER IV Therapy or IV Access : Yes Javier Gait/Transferring : Weak Javier Mental Status : Oriented to own ability Javier Fall Risk Score : 45 JAVIER Fall Scale Risk Level : 25-45 Medium Risk [place] Fall Interventions : Adequate lighting, Assistive devices within reach, Bed in low position, Call device within reach, Frequent orientation to call device, Frequent orientation to surroundings, Hourly comfort/safety rounds, Non-slip footwear, Personal items within reach, Reinforced to call for assistance before getting out of bed, Room free of clutter/spills, Upper side-rails up, Wheels locked, Wires/Cords secured Fall Moderate to High Risk Interventions : High Risk for Fall sign in place per policy, Supervise toileting as indicated, Transport methods appropriate to patient, Wrist band (fall risk) on Suni Mclain RN - 10/02/2020 20:57 EST Fall Risk Education Grid Alarms : Verbalizes understanding Assistive Equipment Use : Verbalizes understanding Bed Height/Stabilization : Verbalizes understanding Call light use : Verbalizes understanding Door Open : Verbalizes understanding Environmental Management : Verbalizes understanding Fall Community Resources : Verbalizes understanding Fall Prevention Protocol : Verbalizes understanding Night Light Use : Verbalizes understanding Nonskid Footwear Use : Verbalizes understanding Orthostatic Hypotension Precautions : Verbalizes understanding Personal Article Availability : Verbalizes understanding Prevention Responsibility Patient : Verbalizes understanding Risk Alert Methods : Verbalizes understanding Risk Factors : Verbalizes understanding Safety Aids : Verbalizes understanding Siderails use/risks : Verbalizes understanding Special Assistive Devices : Verbalizes understanding Staff Responsiveness : Verbalizes understanding Symptom Reporting : Verbalizes understanding Toileting Schedule : Verbalizes understanding Transfer/Mobility Techniques : Verbalizes understanding Urinal/Bedpan Availability : Verbalizes understanding Wait for Assistance : Verbalizes understanding Suni Mclain RN - 10/02/2020 20:57 EST Barriers to Learning : None evident Individuals Taught : Patient Fall Risk Scale Calc Temp : 0 Suni Mclain RN - 10/02/2020 20:57 EST Health Histories Smoking Status : Former smoker, quit more than 30 days ago Smokeless Tobacco Status : Never Suni Mclain RN - 10/02/2020 20:57 EST Social History (As Of: 10/02/2020 21:04:15 EST) Tobacco: Former smoker, quit more than 30 days ago Smoking Status. Never Smokeless Tobacco Status. None Smokeless Tobacco Use History. Last Used: quit in the 80s . (Last Updated: 09/27/2020 10:27:51 EST by Miguel Angel Calloway, Rn) Alcohol: Alcohol Use History No. Use in Last 12 Months: No. (Last Updated: 09/27/2020 10:27:51 EST by Miguel Angel Calloway Rn) Substance Abuse: Drug Use Hx: No. Use in Last 12 Months: No. (Last Updated: 09/27/2020 10:27:51 EST by Miguel Angel Calloway Rn) Height and Weight, Clinical Dosing Height Source : Measured Height Entry Format : [place] Height, Feet : 6 ft(Converted to: 183 cm, 72 Inch) Height, Inches : 2 Inch(Converted to: 0 ft 2 Inch, 5.08 cm) Clinical Height : 187.96 cm Weight Source : Standing scale Weight Entry Format : [place] Clinical Dosing Weight : 129.86 kg Weight, Pounds : 285.7 lb Body Surface Area (BSA) : 2.53 m2 Body Mass Index : 36.8 kg/m2 (HI) [place] Body Weight : 81 kg Suni Mclain RN - 10/02/2020 20:57 EST Infectious Disease History Has the patient ever been tested for COVID-19? : No, Screening today for COVID-19 Where was the COVID-19 Testing completed? : [facility] Date of COVID-19 test known? : Yes Date of COVID-19 Test : 09/30/2020 EST Does patient have symptoms of COVID-19? : No COVID19 Screening : No Experiencing Infectious Disease Symptoms : No symptoms Physical contact outside [place] in the last 30 days : No Infectious Disease History : None Tuberculosis Symptoms : None Suni Mclain RN - 10/02/2020 20:57 EST Tetanus Immunization Status Previous Tetanus Immunizations : No qualifying data available. Tetanus Immunization : Unknown Suni Mclain RN - 10/02/2020 20:57 EST Influenza Vaccine Asmt, Adult Previous Vaccines from Immunization Schedule : No qualifying data available. Influenza Immunization, Current Season : Yes Suni Mclain RN - 10/02/2020 20:57 EST Pneumococcal Vaccine Previous Vaccines from Immunization Schedule : No qualifying data available. Pneumonia Immunization Received : Yes Suni Mclain RN - 10/02/2020 20:57 EST Order Details Transport Mode Order Detail : Wheelchair Isolation Precautions Order Detail : Standard Precautions Order Detail : N/A IV Order Detail : 1 Oxygen Order Detail : 1 Nurse Collect Order Detail : 0 Central Line Order Detail : No Arterial Line : No Patient Needs Meds Crushed/Liquid : No Suni Mclain RN - 10/02/2020 20:57 EST Nutrition History Feeding Ability : Independent Adaptive Feeding Equipment : Diabetic Eating Poorly Due to Decreased Appetite : No Unplanned Weight Loss in Past 3-6 Months : No Malnutrition Screening Tool Total(mal) : 0 Malnutrition Screening Tool Risk Level : Patient not at risk Suni Mclain RN - 10/02/2020 20:57 EST [place] Suicide Severity Rating Scale (C-SSRS) CSSRS Past Month Wish to be : No CSSRS Past Month Suicidal Thoughts : No CSSRS Lifetime Suicide Behavior : No Suicide Severity Rating Score : 0 Suicide Severity Rating : No Additional Care Required at this time Suni Mclain RN - 10/02/2020 20:57 EST Psychosocial History Currently in Unsafe Situation : No Suni Mclain RN - 10/02/2020 20:57 EST Sleep Apnea Risk Assmt BiPAP/CPAP Ordered for Home Use : Yes Hx of Obstructive Sleep Apnea Diagnosis : Yes BiPAP/CPAP Used at Home : Yes Age over 50 Years Old : Yes Gender Male : Yes Suni Mclain RN - 10/02/2020 20:57 EST Spiritual/Cultural Needs Any Spiritual/Cultural Needs or Requests : No Yazidi Preference : Zoroastrian Suni Mclain RN - 10/02/2020 20:57 EST Valuables and Belongings Valuables and Belongings : Clothing Clothing : Common streetwear Clothing Disposition : With patient Suni Mclain RN - 10/02/2020 20:57 EST documented in this encounter Plan of Treatment Not on file documented as of this encounter Visit Diagnoses Not on filedocumented in this encounter Care Teams Certified Green Building Engineer Relationship Specialty Start Date End Date Mumtaz Larson MD [address] [place] [facility] [address] [place] [id number] PCP - General Family Medicine 08/26/22 documented as of this encounter
--- OUTSIDE RECORDS SUMMARY | 2025-06-16 09:39 | XMS_ITS | Encounter Summary ---
Author Organization [employer] ([place], [place], [place], [place]) Address [address] [place] [address] Care Team Providers Care Driver Helper Name Role Phone Mumtaz Larson MD Primary Care Provider + [phone] Encounter Details Date Type Department Care Team (Late st Contact Info) Description 10/02/2020 Transcribed Document [facility] [place] Family Medicine [address] [place] [address] ProviderGabriel MD [address] [place], [place] [address] Social History Tobacco Use Types Packs/Day Years Used Date Smoking Tobacco: Never Assessed Sex and Gender Information Value Date Recorded Sex Assigned at Male 05/13/2022 12:59 PM CDT Legal Sex Male 1:44 PM CDT Gender Identity Male 05/13/2022 12:59 PM CDT Sexual Orientation Not on file documented as of this encounter Miscellaneous Notes * Cerner Conversion Note - Gabriel ProviderMD - 10/02/2020 3:30 PM B2B SALES CONSULTANT [facility] Main OR Preop Summary Primary Physician: RUSLAN FRAZIER MD-SNU Finalized Date/Time: 10/02/20 15:52:12 Pt. Name: TIEN GARCIA Wilmer Delcid/Sex: 1955 Male Med Rec #: [id number] Physician: RUSLAN FRAZIER MD-SANDEEP Financial #: [id number] Pt. Type: I Room/Bed: ASA/6 Admit/Disch: 10/02/20 06:11:00 - Institution: [facility] PreOp Case Times Entry 1 In Preop 10/02/20 11:58:00 Ready for Holding n/a Room Patient Ready for 10/02/20 13:30:00 Surgery Patient Out of Preop 10/02/20 14:47:00 Patient Out of n/a Holding Room Last Modified By: Corinna Ulrich RN 10/02/20 15:52:[address] [facility] PreOp Case Times Audit 10/02/20 15:52:11 Admissions Director: ASAD Modifier: [email or web address] <+> 1 Patient Out of Preop 10/02/20 13:33:25 Admissions Director: ASAD Modifier: [email or web address] <+> 1 Patient Ready for Surgery Finalized By: Corinna Ulrich RN Document Signatures Signed By: Corinna Ulrich RN 10/02/20 15:52 Electronically signed by Sherri [facility] Conversion Broker Assistant Cerner at 02/01/2023 6:57 PM CDT documented in this encounter Plan of Treatment Not on file documented as of this encounter Visit Diagnoses Not on filedocumented in this encounter Care Teams Driver Helper Relationship Specialty Start Date End Date Mumtaz Larson MD [address] [facility] [address] [place] [id number] PCP - General Family Medicine 08/26/22 documented as of this encounter
--- OUTSIDE RECORDS SUMMARY | 2025-06-16 09:39 | XMS_ITS | Encounter Summary ---
Author Organization [employer] ([place], [place], [place], [place]) Address [address] [place] [address] Care Team Providers Care Pot Filler Name Role Phone Mumtaz Larson MD Primary Care Provider + [phone] Encounter Details Date Type Department Care Team (Late st Contact Info) Description 04/16/[address] [facility] [place] Family Medicine [address] [place] [address] ProviderGabriel MD [address] [place] [address] Social History Tobacco Use Types Packs/Day Years [...] Conversion Note - Historical Provider, - 04/16/2022 12:47 PM CDT Nursing Discharge Summary Entered On: 04/16/2022 12:48 EDT Performed On: 04/16/2022 12:47 EDT by Adore Walker RN-PATIENT CARE BEDSIDE NON-EXEMPT Discharge Documentation Discharge Date/Time : 04/16/2022 15:00 EDT Patient Disposition, General : Discharge Discharge To : Home with ambulatory/outpatient follow-up Personal Belongings With Patient : Yes Pt's Own Supply of Medications Returned : No patient supply of medications to return Prescriptions Given to Patient : No Medications Given to Patient : Yes Adore Walker RN-PATIENT CARE BEDSIDE NON-EXEMPT - 04/16/2022 12:47 EDT Electronically signed by Sherri [facility] Conversion It Instructor Cerner at 02/01/2023 7:03 PM CDT documented in this encounter Plan of Treatment Not on file documented as of this encounter Visit Diagnoses Not on filedocumented in this encounter Care Teams Pot Filler Relationship Specialty Start Date End Date Mumtaz Larson MD [address] [facility] [address] [place] [phone] PCP - General Family Medicine 08/26/22 documented as of this encounter
--- OUTSIDE RECORDS SUMMARY | 2025-06-16 09:39 | XMS_ITS | Encounter Summary ---
Author Organization [employer] ([place], [place], [place], [place]) Address [address] [place] [address] Care Team Providers Care Hadoop Administrator Name Role Phone Mumtaz Larson MD Primary Care Provider + [phone] Encounter Details Date Type Department Care Team (Late st Contact Info) Description 04/09/2022 Transcribed Document [facility] [place] Family Medicine [address] [place] [address] ProviderGabriel MD [address] [place] [address] Social History Tobacco Use Types Packs/Day Years [...] Cerner Conversion Note - Historical Provider, - 04/09/2022 8:40 AM CDT Initial Discharge Planning Entered On: 04/09/2022 8:46 EDT Performed On: 04/09/2022 8:40 EDT by CLAYTON RYAN, RN-Work Adjustment Instructor Initial Assessment I Previously Documented Living Environment : No qualifying data available. Living Situation : Home Patient Lives With : Spouse Emergency Contact #1 : Clare King Emergency Contact #1 Emergency Contact #1 Relationship : Emergency Contact #2 : Kathleen Neelyiesha Emergency Contact #2 Emergency Contact #2 Relationship : dtr Identified Medical Decision Maker : self 2nd Ident. Medical Decision Maker : Clare King 2nd Ident. Medical Decision Maker Secondary Number of People in Class : 1 2nd Ident. Medical Decision Maker Class : spouse Enter Doctors Name : Mumtaz Shirley MD Does Patient have PCP Listed? : Yes Medical Durable Power of Blender Machine Operator Name : no Legal Guardian : No Is Guardianship Needed : No CLAYTON RYAN RN-Work Adjustment Instructor - 04/09/2022 8:40 EDT Initial Assessment II Sensory and Motor Deficits : Weakness Current Home Treatments and Equipment : BiPAP, Shower chair, Other: bed that head raises Home Equipment Contact Information : [facility] [phone] Does the Patient have a Floor to SNF Benefit? : Yes CLAYTON RYAN, RN-Work Adjustment Instructor - 04/09/2022 8:40 EDT Discharge Needs I Anticipated Discharge Date : 04/12/2022 EDT Anticipated Discharge To, CM : Home with home health, Rehabilitation Unit, Tertiary Care Facility Current Home Treatment/Equipment : Current Home Treatment/Equipment No qualifying data available. Post Acute/Home Treatments : BiPAP, Oxygen therapy, Shower chair, Other: bed:head raises Documentation Status Complete : Yes CLAYTON RYAN, RN-Work Adjustment Instructor - 04/09/2022 8:40 EDT Discharge Needs II Professional Skilled Services : Professional Skilled Services No qualifying data available. Needs Assistance with Transportation : Maybe Discharge Options Discussed with Patient : Acute rehabilitation, Home Health, halfway Patient Discharge Goal : Inpatient rehabilitation facility CLAYTON RYAN, RN-Work Adjustment Instructor - 04/09/2022 8:40 EDT Narrative Note Narrative Note : HD# 1. elos: not reported. RAR: low 36 from [facility]. dysphagia/resp failure. ? MG. diabetes. hx: viral meningitis. bipap 60%/02 12L nc. mestonin. solu medrol iv. ivig iv. PT/OT/ST spoke with Mr. Dejesus & his , Clare. they reside in [facility]. drives car. has mentioned equipment to include bipap: [employer]. no hh or rehab stays. dcp: rehab vs hh depending on progress Clare, , legal next of kin: [phone] aldair Wang, CLAYTON RYAN, RN-Work Adjustment Instructor - 04/09/2022 8:40 EDT documented in this encounter Plan of Treatment Not on file documented as of this encounter Visit Diagnoses Not on filedocumented in this encounter Care Teams Hadoop Administrator Relationship Specialty Start Date End Date Mumtaz Larson MD [address] [place] [facility] [address] [place] [phone] PCP - General Family Medicine 08/26/22 documented as of this encounter
--- OUTSIDE RECORDS SUMMARY | 2025-06-16 09:39 | XMS_ITS | Encounter Summary ---
Author Organization [employer] ([place], [place], [place], [place]) Address [address] [place] [address] Care Team Providers Care Ground Crew Linesman Name Role Phone Mumtaz Larson MD Primary Care Provider + [phone] Encounter Details Date Type Department Care Team (Late st Contact Info) Description 04/09/2022 Transcribed Document [facility] [place] Family Medicine [address] [place] [address] ProviderGabriel MD [address] [place] [address] Social History Tobacco Use Types Packs/Day Years [...] Date Macario rded Speak language other than Guatemalan at home Not on file 10/29/2023 Want [...] Conversion Note - Historical Provider, - 04/09/2022 12:05 PM CDT Central Line Checklist Entered On: 04/09/2022 12:16 EDT Performed On: 04/09/2022 12:05 EDT by Dorian Gordon RN Central Line Checklist History and Physical on Chart : Yes Central Line Insertion Facility : [facility] Central Line Insertion Start Date/Time : 04/09/2022 12:02 EDT Central Catheter Type : Power injection PICC Central Line Lot Number : [id number] Central Line Vessel Cannulated : Brachial vein Central Line Laterality : Left Central Line Number of Lumens : 3 Central Line Insertion Site : Upper arm, left Central Line Insertion Reason : New indication PICC Line Exclusion Criteria : None CL Number of Insertion Attempts: : 1 Modified Seldinger Used : Yes Portable Ultrasound Device : Yes Central Line Clean Hands : Yes Site Preparation Procedure : Chlorhexidine (Chloraprep) if patient is 2 months or older, 30 second scrub plus 30 second dry time Central IV Full Body Drape Used : Yes Proper Use of Sterile Apparel per Policy : Yes Procedure to be Performed : PICC LINE PLACEMENT Time Out Pause Time : 04/09/2022 12:00 EDT All Activity Suspended : Yes Team Verbally Confirms Information : Correct patient identity, Consent form is present and accurate, Agreement on the procedure to be done, Correct patient position, Confirm the skin prep has dried, Performed in location of procedure after prepped/draped CL Time Out Additional Attendees : BRANDON CAMACHO RN, CHARLES MONTOYA RN, DORIAN GORDON RN, RAMON CARO RN 1% Lidocaine Amt Used as Anesthetic : 3 mL Central IV Sterile Field Maintained : Yes Central IV Sterile Technique Maintained : Yes Central Line Secure with : Stabilization device Central Line Dressing Dated : Yes RN Notified to Withhold Until Confirmed : Yes Dorian Gordon RN - 04/09/2022 12:05 EDT documented in this encounter Plan of Treatment Not on file documented as of this encounter Visit Diagnoses Not on filedocumented in this encounter Care Teams Ground Crew Linesman Relationship Specialty Start Date End Date Mumtaz Larson MD [address] [place] [facility] [address] [place] [id number] PCP - General Family Medicine 08/26/22 documented as of this encounter
--- OUTSIDE RECORDS SUMMARY | 2025-06-16 09:39 | XMS_ITS | Encounter Summary ---
Author Organization [employer] ([place], [place], [place], [place]) Address [address] [place] [address] Care Team Providers Care Collections Analyst Name Role Phone Mumtaz Larson MD Primary Care Provider + [phone] Encounter Details Date Type Department Care Team (Late st Contact Info) Description 04/11/2022 Transcribed Document [facility] [place] [address] [place] [address] ProviderGabriel MD [address] [place] [address] Social History Tobacco Use Types Packs/Day Years [...] Date Macario rded Speak language other than Citizen Of [place] at home Not on file 10/29/2023 Want [...] Conversion Note - Historical Provider, - 04/11/2022 10:36 AM CDT Patient: TIEN GARCIA Age: 66 Years Sex: Male : 1955 Assessment 66yo M admitted with new onset dysphagia, dysarthria, shortness of breath and ptosis. Labs support myasthenia gravis, AchR antibodies 7.3, blocking 53, see below for further details. There is been some response to Mestinon, IVIG day 4, and steroids. Continues to be BiPAP dependent. I would like to be notified of any significant change in Neuro status. Further recommendations will be based on test results, weekend caregiver communication, and clinical course. Ordered IVIG Subjective Stable Presentation: symptoms worsened after admission and he is now bipap dependent. He does have history of viral meningitis one month ago, records reviewed and no growth on cultures; he did have elevated WBCs and protein in CSF at that time. Current clinical picture is most consistent with myasthenia gravis, which may have been triggered by recent infection; AchR antibodies are pending as are labs for Lyme, West Nile. He is on day 3/5 IV Ig and day 4/5 IV Solumedrol; he is on Mestinon as well. This is most likely myasthenia gravis; other possibilities would include paraneoplastic disorder, POST PRODUCTION ASSISTANT infection including tick or mosquito-borne illness, POST PRODUCTION ASSISTANT malignancy, inflammatory disorder such as sarcoid, acute demyelinating disorder. CT chest from yesterday is unremarkable for thymoma or malignancy. I will wait until his respiratory status improves to pursue MRI brain; will consider LP (which is likely to still be abnormal from his recent viral meningitis) if no other causes are found. Continue current care; I have restarted his home synthroid, Tricor and BP meds. Neurology will continue to follow closely. I have spent 40 minutes on this case today. Over half of that time was spent reviewing the chart, discussion with care givers, and counseling, reviewing and discussion with consulting MDs. Review of Systems no change except as in Subjective Physical Exam Eyes, ENT-negative Pulmonary BiPAP Cardiac without murmur Mental Status: normal Orientation to time place person, Attention, Speech mild dysarthria Cranial Nerves: II through XII intact and right ptosis Motor: Strength moves all 4 extremities, 5/5 Sensory: Responds in all 4 extremities Reflexes symmetric, toes down Cerebellar: no abnormal movements Gait: not tested due to pt condition Psychiatric: Appropriate Musculoskeletal: negative Lab Normal B12, TSH,AchR antibodies 7.3, blocking 53, platelets 161, potassium 3.3 Studies personally reviewed Imaging Echo negative bubble study no mass or thrombi Studies personally reviewed Electronically signed by Lizabeth Polanco Conversion Workers Compensation Claims Supervisor Cerner at 02/01/2023 6:44 PM CDT documented in this encounter Plan of Treatment Not on file documented as of this encounter Visit Diagnoses Not on filedocumented in this encounter Care Teams Collections Analyst Relationship Specialty Start Date End Date Mumtaz Larson MD [address] [facility] [address] [place] [id number] PCP - General Family Medicine 08/26/22 documented as of this encounter
--- OUTSIDE RECORDS SUMMARY | 2025-06-16 09:39 | XMS_ITS | Encounter Summary ---
Author Organization [employer] ([place], [place], [place], [place]) Address [address] [place] [address] Care Team Providers Care Cyanide Pot Tender Name Role Phone Mumtaz Larson MD Primary Care Provider + [phone] Encounter Details Date Type Department Care Team (Late st Contact Info) Description 04/06/2022 Transcribed Document [facility] [place] Family Medicine [address] [place] [address] ProviderGabriel MD [address] [place] [address] Social History Tobacco Use Types Packs/Day Years [...] Date Macario rded Speak language other than Norwegian at home Not on file 10/29/2023 Want [...] Historical Provider, - 04/06/2022 4:18 PM CDT Spiritual Care Assessment Entered On: 04/07/2022 12:36 EDT Performed On: 04/07/2022 10:47 EDT by TUTU PIEDRA General Information Referred by : Physician Referral Reason Comment : Code Stroke assessment Ministry Provided to : Patient, Family/Significant other Spiritual Framework : Integrated, provides strength/resource Active in a Yazdanism/Megan Group : Yes Taoism Preference : Christian TUTU PIEDRA 04/07/2022 12:28 EDT Spiritual Assessment Spiritual Assessment Comment/Summary Points : Code Stroke assessment: Megan is a significant resource for Mr. Dejesus; He appreciates prayer; He regularly attends a local adventism; His is at bedside providing emotional and spiritual support; Provided pastoral prayer upon request; Mr. Dejesus expressed gratitude for visit; POC: Will follow PRN Spirital Assessment Comment/Summary Report : SPIRITUAL ASSESSMENT COMMENT/SUMMARY No qualifying data available. TUTU PIEDRA - 04/07/2022 12:28 EDT Electronically signed by Lizabeth Polanco Conversion Financial Reporting Analyst Cerner at 02/01/2023 6:50 PM CDT documented in this encounter Plan of Treatment Not on file documented as of this encounter Visit Diagnoses Not on filedocumented in this encounter Care Teams Cyanide Pot Tender Relationship Specialty Start Date End Date Mumtaz Larson MD [address] [place] [facility] [address] [place] [id number] PCP - General Family Medicine 08/26/22 documented as of this encounter
--- OUTSIDE RECORDS SUMMARY | 2025-06-16 09:39 | XMS_ITS | Encounter Summary ---
Author Organization [employer] ([place], [place], [place], [place]) Address [address] [place] [address] Care Team Providers Care Sba Business Development Officer Name Role Phone Mumtaz Larson MD Primary Care Provider + [phone] Encounter Details Date Type Department Care Team (Late st Contact Info) Description 10/02/2020 Transcribed Document [facility] [place] [address] [place] [address] ProviderGabriel MD [address] [place], [place] [id number] Social History Tobacco Use Types Packs/Day Years Used Date Smoking Tobacco: Never Assessed Sex and Gender Information Value Date Recorded Sex Assigned at Male 05/13/2022 12:59 PM CDT Legal Sex Male 1:44 PM CDT Gender Identity Male 05/13/2022 12:59 PM CDT Sexual Orientation Not on file documented as of this encounter Miscellaneous Notes * Cerner Conversion Note - Gabriel ProviderMD - 10/02/2020 10:00 PM MIXING SUPERVISOR Pain Assessment Entered On: 10/03/2020 1:50 EST Performed On: 10/02/2020 23:00 EST by Suni Mclain RN Intervention Information: acetaminophen Performed by Suni Mclain RN on 10/02/2020 22:00:00 EST acetaminophen,650mg Oral Pain Assessment Pain Assessment : Follow-up assessment Pain Scale Used : 0-10 Scale Suni Mclain RN - 10/03/2020 1:50 EST Pain Scale Intensity : 3 Suni Mclain RN - 10/03/2020 1:50 EST Image 4 - Images currently included in the form version of this document have not been included in the text rendition version of the form. documented in this encounter Plan of Treatment Not on file documented as of this encounter Visit Diagnoses Not on filedocumented in this encounter Care Teams Sba Business Development Officer Relationship Specialty Start Date End Date Mumtaz Larson MD [facility] [address] [place] [id number] PCP - General Family Medicine 08/26/22 documented as of this encounter
--- OUTSIDE RECORDS SUMMARY | 2025-06-16 09:39 | XMS_ITS | Encounter Summary ---
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 [address] TIEN GARCIA :1955 Visit Time:04/06/2022 Your Visit Summary Your Care Team Admitting Physician - MARCELO POLANCO MD-INT Attending Physician - YANNI ANGELA MD-INT Primary Care Physician - RACHAEL, UNKNOWN Referring Physician - RACHAEL, SELF REFERRED Your Diagnosis MG (myasthenia gravis) These Are Your Goals Patient Discharge Goal Patient Discharge Goal: Inpatient rehabilitation facility Patient Discharge Goal: Inpatient rehabilitation facility Discharge Vitals Temperature 36.7 ??C Heart Rate (Monitored) 106 Respiratory Rate 20 Blood Pressure 146/82 What to do next Instructions From Your Care Team STOP taking the following medications: 1. Entocort (budesonide) 2. Tylenol (acetaminophen) Discharge Activity: Discharge Activity: Activity as tolerated Diet: Discharge Diet: Diabetic diet (carb controlled) Follow-Up Appointments Follow Up with JOYCE CHESTER When 05/13/2022 03:00 PM EDT Comments Hospital f/u for myasthenia gravis Where: [facility] [employer] [address] [address]- Business (1) Follow Up with Follow up with primary care provider When Within 1 week Medications What How Much When Instructions Next Dose Diabetic Supplies (BD Pen [place] Short U/ F 8mm x 31G) See Special Instructions SubCutaneous Four Times A Day Use up to 4x per day [facility] Diabetic Supplies (Insulin Syringe U-100, 0.5 mL) See Special Instructions SubCutaneous Four Times A Day Use up to 4x per day Pickup at [facility] insulin regular (insulin regular 100 units/ mL human recombinant injectable solution) Scale C SubCutaneous Twice a Day Before Meals Take as directed as per sliding scale. Pickup at [facility] predniSONE (predniSONE 20 mg oral tablet) See instructions Take as directed 60mg daily starting 04/18 take 50 mg daily starting 04/25 take 40 mg daily starting take 30 mg daily starting take 20 mg daily and then further as directed by neurologist at [facility] Pickup at [facility] pyridostigmine (Mestinon 60 mg oral tablet) 1.5 Tablet(s) Oral Three Times A Day Pickup at [facility] QUEtiapine (SEROquel 200 mg oral tablet) 2 Tablet(s) Oral Two Times A Day allopurinol (allopurinol 300 mg oral tablet) 1 Tablet(s) Oral Every Day atenolol-chlorthalidone (atenolol-chlorthalidone 100 mg-25 mg oral tablet) 1 Tablet(s) Oral Every Day DULoxetine (Cymbalta 60 mg oral delayed release capsule) 2 Capsule(s) Oral Every Day (do not crush or chew) fenofibrate (TriCor 145 mg oral tablet) 1 Tablet(s) Oral Every Day fluticasone nasal (Flonase) 1 Creola(s) Nostrils Both Every Day levothyroxine (levothyroxine 50 mcg (0.05 mg) oral tablet) 1 Tablet(s) Oral Every Day metFORMIN (MetFORMIN (Eqv-Glucophage XR) 500 mg oral tablet, extended release) 1 Tablet(s) Oral Every Day omeprazole (PriLOSEC 20 mg oral delayed release capsule) 1 Capsule(s) Oral Every Day before a meal potassium chloride (potassium chloride 20 mEq oral tablet, extended release) 1 Tablet(s) Oral Two Times A Day pramipexole (pramipexole 0.25 mg oral tablet) 1 Tablet(s) Oral At Bedtime tamsulosin (Flomax 0.4 mg oral capsule) 1 Capsule(s) Oral Every Day Pharmacy Information [facility] [place]: [address] [place], [place] [id number] [phone] Take your medications faithfully. Do NOT skip medication. Do NOT stop taking medications without the direction of a physician. Carry a list of your medications with you at all times, and take this medication list with you to your first follow up visit. Report any side effects. Avoid herbal remedies unless discussed with your physician. As part of your treatment plan, your physician may have prescribed a limited course of a controlled substance. This medication may be given to help people with moderate or severe pain or for other medical conditions, but there are risks involved with treatment. Common side effects may include nausea, constipation, drowsiness, sweating, itching, dry mouth, and rash. More serious side effects may include cognitive and motor impairment, like problems with thinking, concentrating, alertness, and movement (e.g. slowed reflexes), and driving and operating heavy machinery can be dangerous. It is important for you to talk to your physician if you have these side effects or questions. These controlled substances can produce physical dependence and be habit-forming if taken for an extended period of time, which means that the body has gotten used to them and may experience withdrawal symptoms if they are abruptly stopped. Withdrawal symptoms can include runny nose, sweating, goose bumps, diarrhea, abdominal cramping, rapid heartbeat, difficulty sleeping, and nervousness. Please dispose of unused and medications per your retail pharmacy guidance. Allergies No Known Medication Allergies Immunizations This Visit No Immunizations Found Education Materials 3 Vincent Steps to Take While Waiting [...] symptoms of COVID-19. Remember, symptoms may appear 2???14 days after exposure to COVID-19 and can [...] to your house, volunteered, gone to a constitution party, pool, or park)? Gone to a store in person (e.g., grocery store, mall)? Gone to in-person appointments (e.g., salon, browning, doctor's or dentist's office)? Ridden in a car with others (e.g., rideshare) or taken public transportation? Been inside a moravian, sikhism, yazdanism or other places of anabaptist? Who lives with you? Who have you [...] provider. Document Revised: 04/30/2021 Document Reviewed: 04/30/2021 [employer] Patient Education ?? 2020 [facility] 3 Vincent Steps to Take While Waiting [...] symptoms of COVID-19. Remember, symptoms may appear 2???14 days after exposure to COVID-19 and can [...] to your house, volunteered, gone to a constitution party, pool, or park)? Gone to a store in person (e.g., grocery store, mall)? Gone to in-person appointments (e.g., salon, browning, doctor's or dentist's office)? Ridden in a car with others (e.g., rideshare) or taken public transportation? Been inside a moravian, sikhism, yazdanism or other places of anabaptist? Who lives with you? Who have you [...] 04/30/2021 Document Reviewed: 04/30/2021 Elsevier Patient Education ?? 2020 [employer] Inc. Correction Insulin Correction insulin, also called a [...] Is at its highest strength (peak) in 1.5???2 hours. ??? Lasts (duration) for 4???5 hours. Short-acting insulin This insulin: ??? Starts working in the body (onset) in about 30 minutes. ??? Is at its highest strength (peak) in 2???3 hours. ??? Lasts (duration) for 3???6 hours. How do I manage my blood [...] changing your diet, or holidays. ? New [id number] or prescription medicines. ? Illness, stress, or [...] 08/05/2020 Document Reviewed: 08/05/2020 Elsevier Patient Education ?? 2020 [facility] Myasthenia Gravis Myasthenia gravis (MG) is a [...] Follow these instructions at home: ??? Take [id number] and prescription medicines only as told by your health care provider. ??? Get plenty of rest and sleep. Take frequent breaks to rest your eyes, especially when in bright light or working on a computer. ??? Maintain a healthy diet and a healthy weight. Work with your health care provider or a diet and television specialist (dietitian) if you need help. ??? 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 ? Avoiding contact with other people who [...] provider. Document Revised: 10/17/2018 Document Reviewed: 10/17/2018 [employer] Patient Education ?? 2020 [facility] Emergency Awareness and Preventative Care STROKE is an EMERGENCY Every Minute Counts Act FAST and Check for these signs: FACE Does the face look uneven? ARM Does one arm drift down? SPEECH Does their speech sound strange? TIME Call at any sign of stroke Stroke Risk Factors Atrial Fibrillation (irregular heartbeat) Diabetes Family history of stroke Heart Disease Heavy alcohol use High Blood Pressure High Cholesterol Physical inactivity and obesity Smoking Cigarette Smoking The facts are clear, cigarette smoking will shorten your life. Smoking can cause many illnesses along the way. As a healthcare provider, we recommend that you stop smoking. Assistance with quitting is available by contacting 1-483-ZJOZ-NOW. This is a free resource providing counseling, support, and referral. Or you may contact your personal physician. National Suicide Prevention Lifeline: The National Suicide Prevention Lifeline is a national network of local crisis centers that provides free and confidential emotional support to people in suicidal crisis or emotional distress 24 hours a day, 7 days a week. Don't Wait! Stop a Heart Attack Before it Starts What is a heart attack? A heart attack is damage or to a part of the heart from severely decreased or lack of blood flow to the heart. Over time, arteries can become narrow from the buildup of fat and cholesterol, which is called plaque. The plaque can rupture causing a blood clot to form. When the blood clot forms, the artery can become severely narrowed or completely blocked, causing a heart attack. Heart attack is the leading cause of in the [place]. 85% of muscle damage occurs within the first 2 hours. Delay in the recognition of heart attack symptoms increases the chances of . Know the early symptoms of a heart attack: Nausea Feeling of fullness in chest Jaw Pain Pain that travels down one or both arms Fatigue/being tired Anxiety Back Pain Chest pressure, squeezing, or discomfort Shortness of breath Sweating, or a cold sweat Feeling of impending doom There are unusual signs of a heart attack, too! Women, the elderly, and diabetics may present with atypical symptoms: Fainting/dizziness Weakness Confusion Risk Factors for a Heart Attack Some heart disease risk factors, such as age and family history, cannot be changed. Others, like smoking and lack of exercise, can be changed. Smoking High Cholesterol High Blood Pressure Family History Obesity Age Gender (Males are at higher risk) Lack of Exercise Diabetes Diet Stress Excessive Alcohol Intake If you or someone you know is experiencing the signs and symptoms of a heart attack, DON???T DELAY. Call immediately and seek help. If someone collapses, perform CPR! Do not attempt to drive if you are having symptoms of heart attack. Hands-Only CPR Why Hands-Only CPR? Hands-Only CPR has been shown to be as effective as conventional CPR for cardiac arrests that occur outside of a hospital. Survival depends on immediately receiving CPR from someone nearby. How do you perform Hands-Only CPR? There are two easy steps: Call if you see a teen or adult collapse Push hard and fast in the center of the chest at a beat of 100 beats per minute. Save a life! 4 WAYS TO GET AHEAD OF SEPSIS SEPSIS is a MEDICAL EMERGENCY. Time matters! Infections put you and your family at risk for a life-threatening condition called sepsis. Sepsis is the body's extreme response to an infection. It is life-threatening, and without timely treatment, sepsis can rapidly lead to tissue damage, organ failure, and . Sepsis happens when an infection you already have-in your skin, lungs, urinary tract or somewhere else-triggers a chain reaction throughout your body. 1 PREVENT INFECTIONS Take good care of chronic conditions. Talk to your doctor about getting the recommended vaccines. 2 PRACTICE GOOD HYGIENE Wash your hands frequently. Keep cuts or open sores clean and covered until they are healed. 3 KNOW THE SYMPTOMS Confusion or disorientation Shortness of breath High heart rate Fever, shivering, or feeling very cold Extreme pain or discomfort Clammy or sweaty skin 4 ACT FAST Get medical care IMMEDIATELY if you suspect sepsis or if you have an infection that is not getting better or is getting worse. To learn more about sepsis and how to prevent infections, visit www.cdc.gov/sepsis. Test Results Laboratory or Other Results This Visit (last charted value for your 04/06/2022 visit) Blood Gases 04/12/2022 6:46 AM HCO3 Art: 31.3 mmol/L -- Normal range between ( 20.0 and 26.0 ) sO2 Art: 97.5 % -- Normal range between ( 95.0 and 100.0 ) pCO2 Art: 39.0 mmHg -- Normal range between ( 35.0 and 45.0 ) pH Art: 7.51 -- Normal range between ( 7.35 and 7.45 ) pO2 Art: 79.4 mmHg -- Normal range between ( 80.0 and 100.0 ) ABG Num of Draw Attempts: 1 Acceptable Arturo's Test Art: Acceptable BE Art: 7.8 mmol/L Comment Art: bipap 16/8 FIO2 Art: 40 Delivery Device Type Art: Non-Invasive Ventilation Respiratory Rate Art: 20.0 Set Rate Art: 16.0 tHb Art: 14.2 Gram/dL -- Normal range between ( 12.0 and 18.0 ) Ventilator Mode Art: N/A Temperature, F Art: 98.6 Deg F ctO2: 19.3 mmol/L FHHb: 2.5 % Art Blood Gas (ABG) Site: Right Radial PaO2/FiO2 calculated: 198 04/08/2022 6:34 AM Oxygen Flow Rate Art: 2.5 Liter Hematology 04/16/2022 5:41 AM WBC: 8.9 K/uL -- Normal range between ( 3.6 and 9.5 ) RBC: 5.17 Million/uL -- Normal range between ( 4.20 and 5.70 ) Hct: 45.3 % -- Normal range between ( 40.1 and 51.0 ) Hgb: 15.6 g/dL -- Normal range between ( 13.5 and 17.3 ) Platelet Count: 163 K/uL -- Normal range between ( 163 and 369 ) MCH: 30.2 pg -- Normal range between ( 25.6 and 32.2 ) MCHC: 34.4 Gram/dL -- Normal range between ( 32.2 and 36.5 ) MCV: 87.6 fL -- Normal range between ( 79.0 and 94.8 ) Slide Review: No Eos %: 0.8 % -- Normal range between ( 0.0 and 7.0 ) [place] #: 0.82 K/uL -- Normal range between ( 0.16 and 1.00 ) Eos #: 0.07 x10(3)/uL -- Normal range between ( 0.00 and 0.80 ) [place] %: 9.2 % -- Normal range between ( 3.0 and 9.0 ) Baso %: 0.1 % -- Normal range between ( 0.0 and 1.5 ) Baso #: 0.01 x10(3)/uL -- Normal range between ( 0.00 and 0.20 ) RDW: 13.0 % -- Normal range between ( 11.7 and 14.9 ) Neut %: 62.6 % -- Normal range between ( 34.0 and 71.0 ) Neut #: 5.55 K/uL -- Normal range between ( 1.56 and 6.13 ) Lymph %: 26.5 % -- Normal range between ( 19.3 and 53.1 ) Lymph #: 2.35 x10(3)/uL -- Normal range between ( 1.00 and 3.90 ) MPV: 11.6 fL -- Normal range between ( 9.4 and 12.4 ) IG#: 0.07 x10(3)/uL -- Normal range between ( 0.00 and 0.05 ) IG%: 0.80 % -- Normal range between ( 0.00 and 0.60 ) 04/11/2022 3:18 AM RBC Morphology: Normal Platelet Ct Estimate: Decreased 04/06/2022 5:11 PM Sed Rate Auto: 15 mm/Hr -- Normal range between ( 0 and 20 ) Microbiology 04/08/2022 6:12 AM Sputum Culture: See Result 04/08/2022 4:34 AM Influenza A: Not Detected Respiratory Syncytial Virus: Not Detected Influenza B: Not Detected Influenza A H3: Not Detected Parainfluenza 3: Not Detected Influenza A H1: Not Detected Rhinovirus/Enterovirus: Not Detected Human metapneumovirus: Not Detected Parainfluenza 1: Not Detected Parainfluenza 2: Not Detected Adenovirus: Not Detected Parainfluenza 4: Not Detected Bordatella pertussis: Not Detected Coronavirus HKU1: Not Detected Coronavirus NL63: Not Detected Coronavirus OC43: Not Detected Coronavirus 229E: Not Detected Influenza A 2009 H1N1: Not Detected SARS-CoV-2 (COVID19 PCR): Not Detected Bordatella parapertussis: Not Detected General Chemistry 04/16/2022 11:03 AM Glucose POC2: 156 mg/dL -- Normal range between ( 70 and 110 ) Device Comment 1: Device Comment 1 04/16/2022 5:41 AM Creatinine Level: 0.70 mg/dL -- Normal range between ( 0.70 and 1.30 ) Sodium Level: 135 mmol/L -- Normal range between ( 136 and 146 ) Potassium Level: 3.3 mmol/L -- Normal range between ( 3.5 and 5.1 ) Chloride Level: 99 mmol/L -- Normal range between ( 102 and 112 ) Carbon Dioxide Level: 31 mmol/L -- Normal range between ( 21 and 32 ) Anion Gap: 8 -- Normal range between ( 9 and 20 ) Bilirubin Total: 1.2 mg/dL -- Normal range between ( 0.2 and 1.2 ) A/G Ratio: 0.5 -- Normal range between ( 1.1 and 2.5 ) ALT: 303 Units/Liter -- Normal range between ( 16 and 61 ) AST: 62 Units/Liter -- Normal range between ( 5 and 37 ) Globulin: 4.8 Gram/dL -- Normal range between ( 1.5 and 4.5 ) Alk Phos: 64 Units/Liter -- Normal range between ( 27 and 136 ) Bun/Creatinine: 34.3 -- Normal range between ( 8.0 and 20.0 ) Calcium Ionized: 1.06 mmol/L -- Normal range between ( 1.12 and 1.32 ) Calcium Level: 8.4 mg/dL -- Normal range between ( 8.4 and 10.1 ) eGFR : >60 mL/min/1.73m2 eGFR NonAfrican: >60 mL/min/1.73m2 Glucose Level: 86 mg/dL -- Normal range between ( 74 and 106 ) Magnesium Level: 2.3 mg/dL -- Normal range between ( 1.5 and 2.4 ) Blood Urea Nitrogen: 24 mg/dL -- Normal range between ( 7 and 22 ) Phosphorus: 3.2 mg/dL -- Normal range between ( 2.5 and 4.9 ) Protein Total: 7.4 Gram/dL -- Normal range between ( 6.4 and 8.2 ) Albumin Level: 2.6 Gram/dL -- Normal range between ( 3.4 and 5.0 ) 04/15/2022 3:51 AM Lactic Acid Level: 1.1 mmol/L -- Normal range between ( 0.4 and 2.0 ) 04/07/2022 7:45 AM Hgb A1C: 5.8 % eAVG Glucose: 120 mg/dL 04/06/2022 5:11 PM CRP: 0.50 mg/dL -- Normal range between ( 0.00 and 0.30 ) Cardiac Specific Markers 04/07/2022 8:22 AM ProBNP: 78 pg/mL -- Normal range between ( 0 and 125 ) Coagulation 04/12/2022 3:41 AM INR: 1.1 -- Normal range between ( 0.9 and 1.2 ) PT: 11.4 Second(s) -- Normal range between ( 9.2 and 12.0 ) Lipid Studies 04/07/2022 8:22 AM Cholesterol Tot: 175 mg/dL -- Normal range between ( 0 and 199 ) Cholesterol HDL: 53.0 mg/dL Cholesterol LDL Calculation: 94.8 mg/dL -- Normal range between ( 0.0 and 99.0 ) Cholesterol VLDL Calculation: 27.2 mg/dL -- Normal range between ( 5.0 and 40.0 ) Cholesterol/HDL Ratio: 3.3 -- Normal range between ( 0.0 and 3.2 ) Triglyceride: 136 mg/dL -- Normal range between ( 0 and 249 ) LDL/HDL Ratio: 1.8 -- Normal range between ( 0.0 and 3.6 ) Endocrinology 04/15/2022 3:51 AM Procalcitonin: <0.25 ng/mL -- Normal range between ( 0.00 and 2.00 ) 04/06/2022 5:11 PM TSH: 3.610 mcInt Units/mL -- Normal range between ( 0.358 and 3.740 ) Immuno Serology 04/08/2022 11:33 AM RPR: Non Reactive 04/06/2022 5:11 PM Acetylcholine Rec Binding Ab: 7.30 Acetylcholine Receptor Blocking AB: 53 % Infectious Disease 04/12/2022 3:41 AM Hep B Core: Non Reactive Hep C AB: Non Reactive Hep B Surf AG: Non Reactive Hep A IgM AB: Non Reactive 04/08/2022 11:33 AM West Nile Virus Ab, IgM: Negative West Nile Virus Ab, IgG: Positive Lyme by PCR: Negative HIV 04/08/2022 11:33 AM HIV1/2 p24AG/AB COMBO: Non Reactive Vitamin Chemistry 04/06/2022 5:11 PM Folate Level: > 20 ng/mL -- Normal range between ( 3.10 and 17.50 ) Vitamin B12 Level: 835 pg/mL -- Normal range between ( 193 and 986 ) Computed Tomography 04/09/2022 3:[address] Chest WO W: CT Chest WO W Diagnostic Radiology 04/16/2022 6:56 AM CR Chest 1 Vw Portable: CR Chest 1 Vw Portable 04/08/2022 4:45 PM CR Repo Gastric Feed Tube: CR Repo Gastric Feed Tube 04/08/2022 9:46 AM CR Abdomen 1 Vw Portable: CR Abdomen 1 Vw Portable Ultrasound 04/11/2022 10:34 AM US Liver Or Hepatic: US Liver Or Hepatic Echo 04/07/2022 9:56 AM EC 2D Echo Complete W Bubble Study: EC 2D Echo Complete W Bubble Study Patient Name:TIEN GARCIA I have received and understand this information and was given the opportunity to ask questions. Patient/Head End Desizing Machine Operator Name: Patient/Head End Desizing Machine Operator Signature: Relationship to Patient: Clinician/Hospital Head End Desizing Machine Operator Signature: Date: Electronically signed by Sherri, [facility] Conversion Supervisor Grading Cerner at 02/01/2023 6:56 PM CDT documented in this encounter Plan of Treatment Not on file documented as of this encounter Visit Diagnoses Not on filedocumented in this encounter Care Teams Solder Making Laborer Relationship Specialty Start Date End Date Mumtaz Larson MD [address] [place] [address] [place] [address] PCP - General Family Medicine 08/26/22 documented as of this encounter
--- OUTSIDE RECORDS SUMMARY | 2025-06-16 09:39 | XMS_ITS | Encounter Summary ---
Author Organization [employer] ([place], [place], [place], [place]) Address [address] [place] [address] Care Team Providers Care Unemployment Examiner Name Role Phone Mumtaz Larson MD Primary Care Provider + [phone] Encounter Details Date Type Department Care Team (Late st Contact Info) Description 04/11/2022 Transcribed Document [facility] [place] Family Medicine [address] [place] [address] ProviderGabriel MD [address] [place] [address] Social History Tobacco Use Types Packs/Day Years [...] Date Macario rded Speak language other than Nauruan at home Not on file 10/29/2023 Want [...] Conversion Note - Historical Provider, - 04/11/2022 11:44 AM CDT Patient: TIEN GARCIA Age: 66 years Sex: Male : 1955 Associated Diagnoses: None Author: BLAINE DRAPER MD Subjective Seen and examined this morning on BiPAP feeling better, but he became SOB when he is off of BiPAP no Family at bedside labs noted Review of Systems Blurry vision unable to raise his right eye lid Difficulty swallowing Shortness of breath No fever no chills Health Status Allergies: Allergic Reactions (Selected) No [...] Q15Min, PRN: Other (See Comment) Dulcolax Laxative: 10 mg, Rectal, 1-Time Dulcolax Laxative: 5 mg, Oral, Daily, PRN: [...] mL/Hr, IntraCATHeter, 1-Time, PRN: Other (See Comment) calcium gluconate: 1 Gram, 100 mL, 150 mL/Hr, IV Piggyback, Daily, PRN: Other (See Comment) calcium gluconate: 2 Gram, 100 mL, 100 mL/Hr, IV Piggyback, Daily, PRN: Other (See Comment) calcium gluconate: 2 Gram, 100 mL, 100 mL/Hr, IV Piggyback, Q12H, PRN: Other (See Comment) chlorthalidone: 25 mg, [...] (See Comment) levothyroxine: 50 mcg, Oral, Daily magnesium sulfate: 2 Gram, 50 mL, 25 mL/Hr, IV Piggyback, Daily, PRN: Other (See Comment) magnesium sulfate: 2 Gram, 50 mL, 25 mL/Hr, IV Piggyback, Q2H, PRN: Other (See Comment) potassium bicarbonate 20 mEq oral tablet, effervescent: 20 mEq, 1 Tab, Feeding Tube, Q2H, PRN: Other (See Comment) potassium bicarbonate 20 mEq oral tablet, effervescent: 60 mEq, 3 Tab, Feeding Tube, Q2H, PRN: Other (See Comment) potassium chloride 10 mEq/50 mL intravenous solution: 10 mEq, 50 mL, 50 mL/Hr, IV Piggyback, Q1H, PRN: Other (See Comment) pramipexole: 0.25 mg, Oral, At Bedtime predniSONE: 60 mg, Oral, Daily senna: 8.8 mg, Oral, BID sodium phosphate: 15 mMole, 5 mL, 50 mL/Hr, IV Piggyback, Daily, PRN: Other (See Comment) sodium phosphate: 15 mMole, 5 mL, 50 mL/Hr, IV Piggyback, Q6H, PRN: Other (See Comment) Documented Medications Documented Benadryl 25 mg oral tablet: 1 Tab, Oral, TID, PRN: Allergies, 0 Refill(s) Cymbalta 60 mg oral delayed release capsule: 2 Cap, Oral, Daily, (do not crush or chew), 30 Cap, 0 Refill(s) Entocort EC 3 mg oral delayed release capsule: 3 Cap, Oral, Daily, 0 Refill(s) Flomax 0.4 mg oral capsule: 1 Cap, Oral, Daily, 0 Refill(s) Flonase: 1 [place], Nostrils Both, Daily, 0 Refill(s) MetFORMIN (Eqv-Glucophage [...] Tab, Oral, At Bedtime, 0 Refill(s), Medications (50) Active Scheduled: (21) #NaCl 0.9% [...] 1 Tab, Oral, At Bedtime Problem list: Medical Allergic rhinitis / SNOMED CT 558820470 / Confirmed Hard of hearing / SNOMED CT 017517518 / Confirmed High blood pressure / SNOMED CT 68495892 / Confirmed Bronchitis / SNOMED CT 93450607 / Confirmed GERD - Gastro-esophageal reflux disease / SNOMED CT 7630440596 / Confirmed Microscopic colitis / SNOMED CT 574012185 / Confirmed Arthritis / SNOMED CT 8783925 / Confirmed Diabetes mellitus type II / SNOMED CT 00461631 / Confirmed Prostate cancer / SNOMED CT 2515479830 / Confirmed History of obstructive sleep apnea / IMO 52595144 / Confirmed, Active Problems (10) Allergic rhinitis Arthritis Bronchitis Diabetes mellitus type II GERD - Gastro-esophageal reflux disease Hard of hearing High blood pressure History of obstructive sleep apnea Microscopic colitis Prostate cancer Objective VS/Measurements Vitals Signs (last 24 hrs) Last Charted Minimum Maximum Mon HR 43 (APR 11 15:00) 40 (APR 11 07:03) 89 (APR 11 14:00) Resp Rate H 26 (APR 11 15:00) 17 (APR 10 16:01) H 52 (APR 10 23:00) SBP H 157 (APR 11 15:00) 112 (APR 10 22:00) H 170 (APR 11 14:00) DBP 79 (APR 11 15:00) 64 (APR 11 06:00) H 98 (APR 11 12:00) MAP 112 (APR 11 15:00) 87 (APR 10 22:00) 117 (APR 11 12:00) SpO2 L 91 (APR 11 15:00) L 90 (APR 11 10:00) 97 (APR 10 20:00) General: Alert and oriented, No acute distress. Eye: Extraocular movements are intact, Normal conjunctiva, ptosis . HENT: Normocephalic. Neck: Supple, Non-tender. Respiratory: Lungs are clear to auscultation, Breath sounds are equal. Cardiovascular: Normal rate, Regular rhythm, No murmur. Gastrointestinal: Soft, Non-tender, Non-distended, Normal bowel sounds. Musculoskeletal: Normal range of motion, No tenderness. Integumentary: Warm, No rash. Neurologic: Alert, Oriented, No focal deficits. Psychiatric: Cooperative, Appropriate mood & affect. Review / Management APR 11 03:18 144 109 H 26 / H 163 L 3.3 32 0.80 \ APR 11 03:18 \ L 12.9 / 5.2 L 161 / L 39.6 \ Radiology Results (Last 48 hours) [id number] -- 04/06/2022 15:42 CR Chest 1 Vw Portable (04/10/2022 06:55) [...] interpreted, and dictated by Sherif Chavis MD Liver Or Hepatic (04/11/2022 10:34) Result: LIVER [...] agree with the above final transcribed report. Results review: Labs (Last four charted values) [...] 1.5 (VERO 25) 0.8 (VERO 24) 1.1 (APR 08) 0.7 (APR 06) PTN 6.8 (APR 11) 6.4 (APR 10) 7.7 (APR 08) 8.0 (APR 06) ALB L 2.7 (APR 11) L 2.7 (APR 10) 3.7 (APR 08) 4.4 (APR 06) . Impression and Plan # Myasthenia Gravis crisis Neuro check Speech evaluation, S/P Corpak labs noted Pyridostigmine IV steroid switch to PO monitor symptoms neurology following Ach receptor binding Ab ordered Bordetella, HIV not reactive , other work up pending Monitor respiratory status CT chest B/L consolidation #Acute hypoxic respiratory failure Aspiration pneumonia likely secondary from neuro musculare involvement from myasthenia Respiratory PCR negative, CXR noted CT chest 04/09 B/L consolidation Breathing treatment PRN BiPAP for increased work of breathing At risk of worsening respiratory status and intubation consulted pulmonary #Elevated LFT Worsening D/C Tylenol order hepatitis panel, Hepatic US Monitor #Bradycardia D/C BB order pediatrician/medical doctor #Dysphagia Secondary to myasthenia gravis versus stroke MRI brain when he can lay flat Keep n.p.o. Speech therapy Corpak placement, started on feeding tube #Hypernatremia, improving Added free water #Aspiration pneumonia Sputum culture IV Zosyn Breathing treatment CT chest noted #Hypokalemia and hypophosphatemia Replace with IV check in am #H/O Prostate cancer Resume Flomax #Hypothyroidism Restart levothyroxine Check TSH WNL #Diabetes mellitus Sliding-scale insulin Monitor blood sugar #HTN Use IV hydralazine PRN #Restless leg syndrome Resume home medications Discussed with patient, Discussed with LINEN MANAGER Labs, imaging chart from outside hospital reviewed Medically complex at risk of worsening condition CCT Time spent 31 minutes Disposition: Admitted for dysphagia blurry vision, secondary to myasthenia gravis, neurology following, started on pyridostigmine, IV steroid, MRI brain when able to lay flat, Indu, PT./OT. Pulmonary following at risk of worsening respiratory status and intubation .close monitoring in ICU documented in this encounter Plan of Treatment Not on file documented as of this encounter Visit Diagnoses Not on filedocumented in this encounter Care Teams Unemployment Examiner Relationship Specialty Start Date End Date Mumtaz Larson MD [address] [place] [facility] [address] [place] [id number] PCP - General Family Medicine 08/26/22 documented as of this encounter
--- OUTSIDE RECORDS SUMMARY | 2025-06-16 09:40 | XMS_ITS | Encounter Summary ---
Author Organization [employer] ([place], [place], [place], [place]) Address [address] [place] [address] Care Team Providers Care Director Software Quality Assurance Name Role Phone Mumtaz Larson MD Primary Care Provider + [phone] Encounter Details Date Type Department Care Team (Late st Contact Info) Description 09/27/2020 Transcribed Document [facility] [place] Family Medicine [address] [place] [address] ProviderGabriel MD [address] [place], [place] [address] Social History Tobacco Use Types Packs/Day Years Used Date Smoking Tobacco: Never Assessed Sex and Gender Information Value Date Recorded Sex Assigned at Male 05/13/2022 12:59 PM CDT Legal Sex Male 1:44 PM CDT Gender Identity Male 05/13/2022 12:59 PM CDT Sexual Orientation Not on file documented as of this encounter Miscellaneous Notes * Cerner Conversion Note - Gabriel ProviderMD - 09/27/2020 10:27 AM SENIOR TRAINING AND DEVELOPMENT REP PAT Adult Entered On: 09/27/2020 10:32 EST Performed On: 09/27/2020 10:27 EST by Miguel Angel Calloway, Hanh Vital Measurements Temperature Source : Temporal artery scanning Temperature, Fahrenheit : 98.0 Deg F Clinical Temperature, C : 36.7 Deg C Pulse Method : Pulse Oximetry Peripheral Pulse Rate : 76 bpm Blood Pressure Location : Arm, right upper Systolic Blood Pressure : 136 mmHg Diastolic Blood Pressure : 93 mmHg (HI) Oxygen Saturation : 98 % Oxygen Therapy Mode : Room air Val Rdz Rn - 09/30/2020 11:26 EST Height and Weight, Clinical Dosing Height Source : Measured Height Entry Format : Posey Height, Feet : 6 ft(Converted to: 183 cm, 72 Inch) Height, Inches : 2 Inch(Converted to: 0 ft 2 Inch, 5.08 cm) Clinical Height : 187.96 cm Weight Source : Standing scale Weight Entry Format : Posey Clinical Dosing Weight : 129.86 kg Weight, Pounds : 285.7 lb Body Surface Area (BSA) : 2.53 m2 Body Mass Index : 36.8 kg/m2 (HI) [place] Body Weight : 81 kg Val Rdz Rn - 09/30/2020 11:26 EST Health Histories Smoking Status : Former smoker, quit more than 30 days ago Smokeless Tobacco Status : Never Miguel Angel Calloway Rn - 09/27/2020 10:27 EST Social History (As Of: 09/30/2020 11:30:31 EST) Tobacco: Former smoker, quit more than 30 days ago Smoking Status. Never Smokeless Tobacco Status. None Smokeless Tobacco Use History. Last Used: quit in the 80s . (Last Updated: 09/27/2020 10:27:51 EST by Miguel Angel Calloway Rn) Alcohol: Alcohol Use History No. Use in Last 12 Months: No. (Last Updated: 09/27/2020 10:27:51 EST by Miguel Angel Calloway, Hanh) Substance Abuse: Drug Use Hx: No. Use in Last 12 Months: No. (Last Updated: 09/27/2020 10:27:51 EST by Miguel Angel Calloway Rn) Infectious Disease History Has the patient ever [...] History : None Tuberculosis Symptoms : None Val Rdz Rn - 09/30/2020 11:26 EST COVID19 PreProcedure Screening Has patient been isolated since the test : Yes Exposed to COVID19 symptoms since test? : No Stethen, Jennifer, RN - 10/02/2020 13:16 EST Is this an Emergent or Add on Procedure? : No Date PreProcedure COVID-19 test known? : Yes Date of PreProcedure COVID-19 : 09/30/2020 EST Val Rdz Rn - 09/30/2020 11:26 EST Anesthesia/Transfusion History Family History of Anesthesia Reaction : No prior transfusion(s) Transfusion History : Prior anesthesia without reaction Family History of Anesthesia Reaction : None Miguel Angel Calloway Rn - 09/27/2020 10:27 EST Functional Assessment Functional ADL Evaluation Index EBN Bathing : Independent (2) Dressing : Independent (2) Toileting : Independent (2) Transferring Bed or Chair : Independent (2) Continence : Independent (2) Feeding : Independent (2) Miguel Angel Calloway Rn - 09/27/2020 10:27 EST ADL Index Score : 12 Miguel Angel Calloway Rn - 09/27/2020 10:27 EST Advance Directive Patient has Advance Directive *Q : No, patient refuses Advance Directive information Miguel Angel Calloway Rn - 09/27/2020 10:27 EST Spiritual/Cultural Needs Any Spiritual/Cultural Needs or Requests : No Evangelical Preference : Religion Miguel Angel Calloway Rn - 09/27/2020 10:27 EST Petroleum Suicide Severity Rating Scale (C-SSRS) CSSRS Past Month Wish to be : No CSSRS Past Month Suicidal Thoughts : No CSSRS Lifetime Suicide Behavior : No Suicide Severity Rating Score : 0 Suicide Severity Rating : No Additional Care Required at this time Miguel Angel Calloway Rn - 09/27/2020 10:27 EST Psychosocial History Currently in Unsafe Situation : No Miguel Angel Calloway Rn - 09/27/2020 10:27 EST General Info Preferred Name : King Arrived From : Home Mode of Arrival on Unit : Ambulatory Legal Guardian : Spouse Support Person/Patient Truck Loader Overhead Crane : Yes Support Person/Pt Rep Name : Clare King - Support Person/Pt Rep Contact Information : [phone] Want Family/Rep/Phys Notified of Admit : No Miguel Angel Calloway Rn - 09/27/2020 10:27 EST Emergency Contact #1 : `Val Luevano Rn - 09/30/2020 11:32 EST Emergency Contact #1 Phone Number : `[phone] Emergency Contact #1 Relationship : ` Emergency Contact #2 : none` Emergency Contact #2 Phone Number : none` Emergency Contact #2 Relationship : none` Val Rdz Rn - 09/30/2020 11:26 EST Information Obtained From : Patient Primary Language : Northern Irish Communication Barrier : None Sybase Developer Needed : No Miguel Angel Calloway Rn - 09/27/2020 10:27 EST Shon Scale Shon Sensory Perception : No impairment Shon Moisture : Rarely moist Shon Activity : Walks occasionally Shon Mobility : Slightly limited Shon Nutrition : Adequate Shon Friction and Shear : No apparent problem Shon Score : 20 Miguel Angel Calloway Rn - 09/27/2020 10:27 EST Sleep Apnea Risk Assmt BiPAP/CPAP Ordered for Home Use : Yes Hx of Obstructive Sleep Apnea Diagnosis : Yes BiPAP/CPAP Used at Home : Yes Age over 50 Years Old : Yes Gender Male : Yes Miguel Angel Calloway Rn - 09/27/2020 10:27 EST documented in this encounter Plan of Treatment Not on file documented as of this encounter Visit Diagnoses Not on filedocumented in this encounter Care Teams Director Software Quality Assurance Relationship Specialty Start Date End Date Mumtaz Larson MD [address] [facility] [address] [place] [phone] PCP - General Family Medicine 08/26/22 documented as of this encounter
--- OUTSIDE RECORDS SUMMARY | 2025-06-16 09:40 | XMS_ITS | Encounter Summary ---
Author Organization [employer] ([place], [place], [place], [place]) Address [address] [place] [address] Care Team Providers Care Marine Engineering Teacher Name Role Phone Mumtaz Larson MD Primary Care Provider + [phone] Encounter Details Date Type Department Care Team (Late st Contact Info) Description 10/03/2020 Transcribed Document [facility] [place] Family Medicine [address] [place] [address] ProviderGabriel MD [address] [place], [place] [id number] Social History Tobacco Use Types Packs/Day Years Used Date Smoking Tobacco: Never Assessed Sex and Gender Information Value Date Recorded Sex Assigned at Male 05/13/2022 12:59 PM CDT Legal Sex Male 1:44 PM CDT Gender Identity Male 05/13/2022 12:59 PM CDT Sexual Orientation Not on file documented as of this encounter Miscellaneous Notes * Cerner Conversion Note - Historical ProviderMD - 10/03/2020 11:44 AM CARDIAC CARE NURSE Treatment Intervention, PT Entered On: 10/03/2020 14:39 EST Performed On: 10/03/2020 14:18 EST by BELLA MORAN PT General Information, PT Visit Type, PT : Treatment Note Patient Orders : Order Date Order Ordering 10/02/2020 17:09 Physical Therapy Eval and Treat Ordered By: RUSLAN FRAZIER MD-SNU 10/03/2020 11:44 PT Additional Treatment Ordered By: PILLO MOREL, PT Active Diagnoses : 10/03/2020 12:00 Spondylolisthesis, lumbar region 10/02/2020 12:00 Spondylolisthesis, site unspecified Therapy Diagnosis, PT : Decreased independence with mobility. Admission Date : 10/02/2020 06:11 Personal Devices : Personal Devices No Devices Recorded Assistive Devices : Assistive Devices No Devices Recorded Precautions in Place : Log roll precautions BELLA MORAN, PT - 10/03/2020 14:29 EST General Status Patient Received Status : Up in chair Treatment Start Time : 10/03/2020 14:10 EST Patient Left Status : Up in chair, Communication board completed, All needs met and within reach RN/PCT Informed Comment : mumtaz Treatment End Time : 10/03/2020 14:18 EST Treatment Time : 8 Minute(s) BELLA MORAN, PT - 10/03/2020 14:29 EST Functional Mobility Mobility Grid Sit to Stand : Rehab Complete independence Stand to Sit : Rehab Complete independence BELLA MORAN, PT - 10/03/2020 14:29 EST Gait Training/Assessment, PT Gait Assistance Level : Independent, complete Walking Distance : 400' Ambulatory Devices : None, Gait belt Stair(s) Ascend/Descend Training : Yes Number of Stairs : 10 Stair(s) Assist Devices : Rails, two Stair Assist : Independent, modified BELLA MORAN, PT - 10/03/2020 14:29 EST Edu Topics Physical Therapy Education Grid Role of Physical Therapy : Verbalizes understanding BELLA MORAN, PT - 10/03/2020 14:29 EST Indication Assesessment, PT Physical Therapy Indicated : No Physical Therapy Not Indicated : Independent, complete, No skilled services ind., Prior level of function BELLA MORAN, PT - 10/03/2020 14:29 EST Plan of Care, PT PT Tx Plan/Goals Established w Patient : Yes CHRISTIE MG, PT - 10/05/2020 7:03 EST Short Term Goals Ambulation STG Grid Goal #1 Device : Walker, front wheel Distance : 200' Assist : Supervision or set-up Date to Meet : 10/10/2020 EST Goal Status : Goal met Date Met : 10/03/2020 EST BELLA MORAN PT - 10/03/2020 14:29 EST Industrial Electrician Goals Ambulation LTG Grid Goal #1 Device : Walker, front wheel Distance : 400' Assist : Independent, modified Date to Meet : 10/17/2020 EST Goal Status : Goal met BELLA MORAN PT - 10/03/2020 14:29 EST Treatment Note Subjective Comment : Patient and RN ok'd PTx. Additional Objective Information : Patient dressed in chair waiting to discharge home. Patient agreeable to ambulate and practice steps. He was able to ambulate to PT gym and ascend and descend 10 steps. Patient improved with gait and was able to ambulate without AD. Assessment : Patient demonstrates independence with functional mobility and activity tolerance. patient has met all goals. Plan for Treatment : discharge BELLA MORAN PT - 10/03/2020 14:29 EST Pain Assessment Pain Scaled Used : 0-10 Pain scale Pain Score Pre-Intervention : 0 BELLA MORAN PT - 10/03/2020 14:29 EST Image 1 - Images currently included in the form version of this document have not been included in the text rendition version of the form. Anticipated Discharge Needs, OT/PT Anticipated Discharge to : Home, with family care Recommend Continued Therapy at Discharge : No BELLA MORAN PT - 10/03/2020 14:29 EST [place] [facility] Charges PT Therap. Exercise 15 min : 1 BELLA MORAN PT - 10/03/2020 14:29 EST Electronically signed by Sherri [facility] Conversion Roof Truss Machine Tender Cerner at 02/01/2023 6:50 PM CDT documented in this encounter Plan of Treatment Not on file documented as of this encounter Visit Diagnoses Not on filedocumented in this encounter Care Teams Marine Engineering Teacher Relationship Specialty Start Date End Date Mumtaz Larson MD [address] [place] [facility] [address] [place] [phone] PCP - General Family Medicine 08/26/22 documented as of this encounter
--- OUTSIDE RECORDS SUMMARY | 2025-06-16 09:40 | XMS_ITS | Encounter Summary ---
Author Organization [employer] ([place], [place], [place], [place]) Address [address] [place] [address] Care Team Providers Care Senior Qa Analyst Name Role Phone Mumtaz Larson MD Primary Care Provider + [phone] Encounter Details Date Type Department Care Team (Late st Contact Info) Description 04/09/2022 Transcribed Document [facility] [place] Family Medicine [address] [place] [address] ProviderGabriel MD [address] [place] [address] Social History Tobacco Use Types Packs/Day Years [...] Date Macario rded Speak language other than Polish at home Not on file 10/29/2023 Want [...] Conversion Note - Historical Provider, - 04/09/2022 2:06 PM CDT Attempt to Treat, PT Entered On: 04/09/2022 14:17 EDT Performed On: 04/09/2022 14:06 EDT by SAMMI GUTIÉRREZ PTA Attempt to Treat Unable to Treat Due To : Patient on hold Inability to Treat Comment : nsg requested to hold pt at this time due to being bipap dependent, will try back as time permits Notification : nskatherine Miri SAMMI GUTIÉRREZ PTA - 04/09/2022 14:16 EDT Electronically signed by Sherri [facility] Conversion Attraction Worker Cerner at 02/01/2023 6:53 PM CDT documented in this encounter Plan of Treatment Not on file documented as of this encounter Visit Diagnoses Not on filedocumented in this encounter Care Teams Senior Qa Analyst Relationship Specialty Start Date End Date Mumtaz Larson MD [address] [facility] [address] [place] [phone] PCP - General Family Medicine 08/26/22 documented as of this encounter
--- OUTSIDE RECORDS SUMMARY | 2025-06-16 09:40 | XMS_ITS | Encounter Summary ---
Author Organization [employer] ([place], [place], [place], [place]) Address [address] [place] [address] Care Team Providers Care Parquetry Layer Name Role Phone Mumtaz Larson MD Primary Care Provider + [phone] Encounter Details Date Type Department Care Team (Late st Contact Info) Description 04/16/2022 Transcribed Document [facility] [address] [place] [address] Elicia Menendez MD [address] [place] [address] [place] [address] Social History Tobacco Use Types Packs/Day Years [...] Date Macario rded Speak language other than Ukrainian at home Not on file 10/29/2023 Want [...] Miscellaneous Notes * Cerner Conversion Note - Elicia Menendez MD - 04/16/2022 6:33 PM EDT DATE OF ADMISSION: 04/06/2022 DATE OF DISCHARGE: 04/16/2022 PRIMARY CARE PROVIDER: Dr. Mumtaz Larson. PRINCIPAL DISCHARGE DIAGNOSES: 1. Myasthenia gravis with crisis. 2. Hypertension. 3. Diabetes mellitus. 4. Dysphagia secondary to problem #1. 5. History of prostate cancer. 6. Hypothyroidism. 7. Restless legs syndrome. 8. Elevated LFTs and fatty liver. PRINCIPAL CONSULTATIONS: 1. Pulmonary consult with Dr. Mcintosh. 2. Neurology consult with Dr. Mccullough. PRINCIPAL PROCEDURES: CT of the chest did show some left basilar consolidation, otherwise unremarkable. Echocardiogram revealed normal ejection fraction. Ultrasound of the liver did show enlarged fatty liver. ADMISSION HISTORY AND HOSPITAL COURSE: This is a 66-year-old white male with underlying history of diabetes mellitus and hypertension who presented from the outside hospital. Reportedly, he had an episode of viral meningitis in February of 2022. Afterwards in the past week, prior to his admission, he noticed that his tongue was having an unusual feeling with some feeling of thickness and difficulty maneuvering. Later on, he also started developing some mild shortness of breath. He developed dysphagia. He was seen at the outside hospital and then was transferred over here. He was seen and evaluated by Neurology. Possibility of neuromuscular disease including myasthenia gravis and manifestation of his recent meningitis, etc., was also entertained in addition to paraneoplastic disorder. The patient also had antibodies for acetylcholine receptor that was ordered as well. Empirically, he was given a dose of Mestinon. Respiratory mechanics were also followed. With empiric doses of the Mestinon, he was showing improvement in symptoms each time. After that, he was started on steroids high dose along with IVIG. A Corpak was also placed. CT of the chest was unremarkable for thymoma or malignancy. The patient was continued on a BiPAP. He was also continued on Corpak tube feeding. His antibody testing to AchR was positive consistent with myasthenia gravis. After the completion of the IVIG, the patient was tapered to p.o. steroids. Gradually, his clinical course improved and his diet was able to be advanced after speech evaluation. The patient's respiratory status stabilized. He was weaned off oxygen as well. He was transferred out of ICU. PT and OT continued to follow the patient and his ambulation improved significantly. He was felt to be stable to be discharged home with home health. On the day of discharge, the patient was doing well. He was awake, alert, and oriented and afebrile. His blood pressure was 146/82. Lung exam was clear to auscultation. Abdomen exam was benign and soft. The patient was also seen and evaluated by Neurology on the day of discharge, and I did discuss with Dr. Mccullough as well. He did not require any home oxygen after re-evaluation on the day of discharge as well. Neurology has recommended that he stay on high-dose steroids with taper at 10 mg every week until he follows up with outpatient Neurology. Of note, the patient has also been on long-term Seroquel as an outpatient. His EKG was again reviewed prior to discharge and his QTc was acceptable and that is being continued as well. With regard to his diabetes, the patient's hemoglobin A1c was under excellent control at 5.8%. He had been only on a sliding scale here, but he will resume his metformin upon discharge and he will continue with sliding scale as necessary given that he is also going to be on the high-dose prednisone. DISCHARGE DIET: Would be diabetic. DISCHARGE ACTIVITY: As tolerated. DISCHARGE MEDICATIONS: 1. Atenolol/chlorthalidone 100/25 daily. 2. Flonase nasal spray to nostril daily. 3. Metformin 500 mg daily. 4. Prilosec 20 mg daily. 5. Allopurinol 300 mg daily. 6. Cymbalta 120 mg daily. 7. TriCor 145 mg daily. 8. Levothyroxine 50 mcg daily. 9. K-Dur 20 mEq b.i.d. 10. Pramipexole 0.25 mg at bedtime. 11. Prednisone currently on 60 mg. He will taper every Wednesday starting on 04/18 to 50 mg, then on 04/25 to 40 mg, then on 05/02 to 30 mg, and on 05/09 to 20 mg but then further will be by direction of his neurologist at the time of followup. 12. Mestinon 90 mg t.i.d. 13. Seroquel 400 mg b.i.d. 14. Flomax 0.4 mg daily. 15. Insulin regular. He will continue with the sliding scale on a Scale B for which instructions have been advised to be provided to the patient. DISCHARGE FOLLOWUP: 1. Follow up with Dr. Alex Fields with Neurology on 05/13/2022 at 3 p.m. 2. Follow up with his primary care provider in 1 week. The patient has declined home health at this time. He does have a cane. He did not require oxygen. All other discharge instructions have been reviewed at length with the patient and also care coordinated with Case Management and mobile sales consultant service, and time spent towards the above with discharge preparation, totals at 45 minutes. /[id number] Elicia Menendez MD VLS/AQ / VLS / MODL /[id number] documented in this encounter Plan of Treatment Not on file documented as of this encounter Visit Diagnoses Not on filedocumented in this encounter Care Teams Parquetry Layer Relationship Specialty Start Date End Date Mumtaz Larson MD [address] [place] [facility] [address] [place] [id number] PCP - General Family Medicine 08/26/22 documented as of this encounter
--- OUTSIDE RECORDS SUMMARY | 2025-06-16 09:40 | XMS_ITS | Encounter Summary ---
Author Organization [employer] ([place], [place], [place], [place]) Address [address] [place] [address] Care Team Providers Care Cms Expert Name Role Phone Mumtaz Larson MD Primary Care Provider + [phone] Encounter Details Date Type Department Care Team (Late st Contact Info) Description 10/03/2020 Transcribed Document [facility] Neurology - [facility] [address] [facility] [address] [place] [id number] Jass Ordonez MD [address] [place] [address] [address] [place] [address] Social History Tobacco Use Types Packs/Day Years Used Date Smoking Tobacco: Never Assessed Sex and Gender Information Value Date Recorded Sex Assigned at Male 05/13/2022 12:59 PM CDT Legal Sex Male 1:44 PM CDT Gender Identity Male 05/13/2022 12:59 PM CDT Sexual Orientation Not on file documented as of this encounter Miscellaneous Notes * Cerner Conversion Note - Jass Ordonez MD - 10/03/2020 10:05 AM EST Patient: TIEN GARCIA Age: 64 Years Sex: Male : 1955 Assessment/Plan POD 1 L4-5 MIS TLIF -pt/ot eval -start sqh for dvt ppx -encourage is use -medicine following -dc home this afternoon if mobilizing well and pain controlled -discussed postop expectations Subjective pain controlled, c/o incisional pain unsure if preop leg pain is better as he has not ambulated enough yet. He has been ambulatory throughout the room denies cp soa cough abd pain nv nt Vital Signs T: 36.6 ??C TMIN: 36.6 ??C TMAX: 36.9 ??C HR: 70(Monitored) RR: 16 BP: 119/68 SpO2: 94% Physical Exam A&O nad incision cdi, no active drainage bandage moderately saturated with blood / silt appropriate documented in this encounter Plan of Treatment Not on file documented as of this encounter Visit Diagnoses Not on filedocumented in this encounter Care Teams Cms Expert Relationship Specialty Start Date End Date Mumtaz Larson MD [address] [place] [facility] [address] [place] [address] PCP - General Family Medicine 08/26/22 documented as of this encounter
--- OUTSIDE RECORDS SUMMARY | 2025-06-16 09:40 | XMS_ITS | Encounter Summary ---
Author Organization [employer] ([place], [place], [place], [place]) Address [address] [place] [address] Care Team Providers Care Double Head Machine Operator Name Role Phone Mumtaz Larson MD Primary Care Provider + [phone] Encounter Details Date Type Department Care Team (Late st Contact Info) Description 04/09/2022 Transcribed Document [facility] Pulm & Critical Care Medicine [address] [facility] [address] [place] [id number] Teo Pimentel MD [address] [facility] [address] [place] [address] Social History Tobacco Use Types Packs/Day Years [...] Macario rded Speak language other than South Korean at home Not on file 10/29/2023 Want [...] Notes * Cerner Conversion Note - Teo Pimentel MD - 04/09/2022 5:55 PM EDT Patient: TIEN GARCIA Age: 66 years Sex: Male : 1955 Associated Diagnoses: None Author: TEO PIMENTEL MD REQ: Dr Steele RE: Myesthenia Gravis [...] documented for overall fluid balance of +956ml. ICU day: 2 Review of Systems Unable to obtain Health Status Current medications: Medications (32) Active Scheduled: (13) #NaCl 0.9% *FLUSH* inj 10 mL 10 mL, IV Push, Q12H #NaCl 0.9% *FLUSH* inj 10 mL 10 mL, IntraCATHeter, Q12H acetaminophen 325 mg tab 650 mg 2 Tab, Oral, Daily diphenhydrAMINE 50 mg/1 mL inj 25 mg 0.5 mL, IV Push, Daily famotidine 20 mg/2 mL inj 20 mg 2 mL, IV Push, BID heparin 5,000 units/1 mL inj 5,000 Units 1 mL, SubCutaneous, Q8H immune globulin (Octagam) 40 Gram 400 mL, IV Piggyback, Daily insulin regular 1 unit/0.01 mL inj 3mL Scale C, SubCutaneous, Q6H methylPREDNISolone succinate 500 mg, IV Piggyback, BID piperacillin-tazobactam + NaCl 0.9% 100 mL 3.375 Gram, IV Piggyback, Q6HInt pramipexole 0.25 mg tab 0.25 mg 1 Tab, Oral, At Bedtime pyridostigmine 60 mg/5 mL liq 60 mg 5 mL, Oral, TID QUEtiapine 200 mg tab 400 mg 2 Tab, Oral, BID Continuous: (2) dexmedeTOMIDine 400 mcg + NaCl 0.9% TITRATE 100 mL 100 mL, IntraVENous NaCl 0.9% 1,000 mL 1,000 mL, IntraVENous, 50 mL/Hr PRN: (17) #NaCl 0.9% *FLUSH* inj 10 mL 10 [...] tab 5 mg 1 Tab, Oral, Q4H Physical Examination VS/Measurements Vitals Signs (last 24 hrs) Last Charted Minimum Maximum Temp 97.7 (APR 09 12:00) 97.7 (APR 09 12:00) 98.4 (APR 08 17:00) Mon HR 58 (APR 09 16:00) 52 (APR 09 14:00) 130 (APR 08 22:43) Resp Rate H 24 (APR 09 16:00) 16 (APR 09 12:29) H 36 (APR 08 17:00) SBP 127 (VERO 23 16:00) 118 (MAR 23 04:00) H 156 (APR 08 22:00) DBP 64 (MAR 23 16:00) 64 (MAR 23 16:00) H 98 (APR 08 22:00) MAP 88 (MAR 23 16:00) 86 (MAR 23 04:00) 122 (APR 08 22:00) SpO2 97 (APR 09 16:00) L 92 (APR 08 17:00) 98 (APR 09 06:00) Intake & Output Totals Last 24 Hours (7a-7a) Intake (38 Events) Medications (1156.07 mL) Output (1 Events) Urine Voided (Volume) (200 mL) Input Total: 1156.07 mL Output Total: 200 mL Balance: 956.07 mL General: Moderate distress, On bipap with 60%. Eye: Pupils are equal, round and reactive to light, Normal conjunctiva, R eye droopiness. HENT: Normocephalic, Oral mucosa is moist. Neck: Supple, No lymphadenopathy. Respiratory: dec bilateral bases, intermit accessory muscle use/abdominal use. Cardiovascular: Normal rate, Regular rhythm, No edema. Gastrointestinal: Soft, Non-tender, Non-distended, Normal bowel sounds. Integumentary: Warm, Dry, [place]. Neurologic: Alert, Oriented, Anxious when not on bipap . Psychiatric: Cooperative, Appropriate mood & affect. Review / Management Results review: Labs (Last four charted values) WBC 8.8 (VERO 23) 7.0 (VERO 22) H 11.3 (VERO 21) H 15.6 (VERO 20) HB 14.8 (VERO 23) 17.1 (VERO 22) 16.7 (VERO 21) H 17.6 (VERO 20) HCT 43.9 (VERO 23) 50.8 (VERO 22) 50.7 (VERO 21) H 52.3 (VERO 20) Plt 326 (VERO 23) 356 (VERO 22) 362 (VERO 21) 329 (VERO 20) Na 144 (VERO 23) 138 (VERO 22) 138 (VERO 21) 138 (VERO 20) K 3.6 (VERO 23) L 3.4 (VERO 22) 3.6 (VERO 21) L 3.2 (VERO 20) Cl 109 (VERO 23) 107 (VERO 22) 103 (VERO 21) 102 (VERO 20) CO2 31 (VERO 23) 22 (VERO 22) 25 (VERO 21) 23 (VERO 20) BUN 22 (VERO 23) 17 (VERO 22) 15 (VERO 21) 13 (VEOR 20) Cr 0.80 (VERO 23) 0.70 (VERO 22) 0.70 (VERO 21) 0.80 (VERO 20) Glu R H 167 (VERO 23) H 167 (VERO 22) 105 (VERO 21) H 127 (VERO 20) Ca 9.0 (VERO 23) 9.1 (VERO 22) 9.0 (VERO 21) 9.1 (VERO 20) AST H 39 (VERO 22) 26 (VERO 20) ALT 49 (VERO 22) 31 (VERO 20) ALK P 73 (MAR 22) 64 (VERO 20) T Bili 1.1 (APR 08) 0.7 (VERO 20) PTN 7.7 (APR 08) 8.0 (VERO 20) ALB 3.7 (VERO 22) 4.4 (EVRO 20) . Blood Gases (Current Encounter/Past 24 Hours) pH Art 7.49 HI 04/09/2022 04:55 pCO2 Art 35.9 04/08/2022 17:31 pO2 Art 64.4 LOW 04/09/2022 04:55 HCO3 Art 27.5 HI 04/09/2022 04:55 BE Art 4.3 HI 04/09/2022 04:55 sO2 Art 95.0 04/08/2022 17:31 tHb Art 16.2 04/08/2022 17:31 FHHb 4.9 NA 04/08/2022 17:31 ctO2 21.3 NA 04/08/2022 17:31 FIO2 Art 60 NA 04/08/2022 17:31 Delivery Device Type Art Non-Invasive Ventilation 04/08/2022 17:29 Temperature, F Art 98.6 NA 04/08/2022 17:31 Art Blood Gas (ABG) Site Right Radial 04/08/2022 17:29 Acceptable Arturo's Test Art Acceptable 04/08/2022 17:29 Ventilator Mode Art NPPV 18/10 NA 04/08/2022 17:29 Set Rate Art 16.0 NA 04/08/2022 17:29 Respiratory Rate Art 16.0 NA 04/08/2022 17:29 Comment Art supine NA 04/08/2022 17:29 ABG Num of Draw Attempts 1 NA 04/08/2022 17:29 PaO2/FiO2 calculated 107 NA 04/08/2022 17:31 Radiology Results (Last 48 hours) [id number] -- 04/06/2022 15:42 CR Chest 1 Vw Portable (04/08/2022 06:52) Result: PORTABLE CHEST 04/08/2022 6:00 AM HISTORY: Difficulty breathing, difficulty swallowing.COMPARISON: Portable chest x-ray from the previous day.FINDINGS: The heart is stable in size. The lung grewal demonstrate nosignificant change in hypoaeration, bibasilar atelectasis, and smallbilateral pleural effusions. There is no pneumothorax. A feeding tubetraverses below the diaphragm.IMPRESSION: There has been no significant interval change .Continued follow up recommended.Images reviewed, interpreted, and dictated by Dr. Bassam Hernández.Transcribed by Aurelia Mena PA-C.I have personally viewed, interpreted and dictated the examination. Ihave read and agree with the above final transcribed report. CR Abdomen 1 Vw Portable (04/08/2022 09:46) Result: KUBHISTORY: Feeding tube placement.COMPARISON: None.FINDINGS: The feeding tube is identified below the diaphragm. The bowelgas pattern is nonspecific.IMPRESSION: Feeding tube tip terminates in the mid stomach.Images reviewed, interpreted, and dictated by Dr. Bassam Hernández.Transcribed by MIK Webb have personally viewed, interpreted and dictated the examination. Ihave read and agree with the above final transcribed report. CR Repo Gastric Feed Tube (04/08/2022 16:45) Result: ATTEMPTED FEEDING TUBE ADVANCEMENT UNDER FLUOROSCOPYFLUORO TIME: 0.1 minutes.FLUORO Films: 1.HISTORY: Malnutrition.ATTENDING RADIOLOGIST: Dr. Hernández.PHYSICIAN MANUFACTURING SUPPORT ENGINEER: Mayelin Valdez PA-C.FINDINGS: The patient's existing feeding tube was localized underfluoroscopy to be within the body of the stomach. After multipleattempts, the patient could not tolerate lying on the table due tofeeling like he could not breathe. The procedure was then terminated.IMPRESSION: Attempted feeding tube advancement under fluoroscopy.Images reviewed, interpreted, and dictated by Dr. Bassam Hernández.Transcribed by Mayelin Valdez PA-C.I have personally viewed, interpreted and dictated the examination. Ihave read and agree with the above final transcribed report. CR Chest 1 Vw Portable (04/09/2022 12:36) [...] by Dr. Sherif Chavis.Transcribed by Jenaro Day PA-C.Maura have personally viewed, interpreted and dictated the [...] with the above final transcribed report. Mechanics 6/22 NIFs -40 x 3 with VC 1.1, .8, .91 04/07 1700 -10 x3 and VC 1.13, 1.46, 1. 5 Impression and Plan Pulmonary Acute Respiratory Failure, hypoxemic in setting of neuromuscular issues, being evaluated for Myasthenia Gravis Left lower lobe opacity. Pneumonia in the left lower lobe can not be excluded. BRETT history Neuro Neuromuscular issues being evaluated for Myasthenia [...] mechanics (NIF and vital capacity) Q 8 H, patient was unable to tolerate being off bipap to participate this morning 04/09 RN to add precedex for goal RASS 0 On Seroquel (home med) CT chest with contrast today as recommended by neuro Keep HOB elevated Neuro following MRI pending (patient is currently unable to tolerate laying flat) Acetylcholine receptionist studies pending On Mestinon Also receiving Solumedrol and IVIG Glycemic control: on correction insulin, target glucose 140-180 mg/dL Prophylaxis: None scheduled, will add Heparin and Pepcid Insert PICC line At risk for respiratory complications AM orders placed CODE STATUS: FULL CODE Disposition: ICU 77 minutes critical care time excluding procedures. Discussed with FLIGHT COMMUNICATIONS OPERATOR, RN, Dr. Mccullough (neurologist) and during multidisciplinary rounds. documented in this encounter Plan of Treatment Not on file documented as of this encounter Visit Diagnoses Not on filedocumented in this encounter Care Teams Double Head Machine Operator Relationship Specialty Start Date End Date Mumtaz Larson MD [address] [place] [facility] [address] [place] [address] PCP - General Family Medicine 08/26/22 documented as of this encounter
--- OUTSIDE RECORDS SUMMARY | 2025-06-16 09:40 | XMS_ITS | Encounter Summary ---
Author Organization [employer] ([place], [place], [place], [place]) Address [address] [place] [address] Care Team Providers Care Hand Glove Cleaner Name Role Phone Mumtaz Larson MD Primary Care Provider + [phone] Encounter Details Date Type Department Care Team (Late st Contact Info) Description 10/03/2020 Transcribed Document [facility] Family Medicine [facility] [place] [address] ProviderGabriel MD [address] [place], [place] [address] Social History Tobacco Use Types Packs/Day Years Used Date Smoking Tobacco: Never Assessed Sex and Gender Information Value Date Recorded Sex Assigned at Male 05/13/2022 12:59 PM CDT Legal Sex Male 1:44 PM CDT Gender Identity Male 05/13/2022 12:59 PM CDT Sexual Orientation Not on file documented as of this encounter Miscellaneous Notes * Cerner Conversion Note - Historical ProviderMD - 10/03/2020 3:31 PM ROBOTIC MACHINE TENDER PRODUCTION Discharge Summary, PT Entered On: 10/03/2020 15:32 EST Performed On: 10/03/2020 15:31 EST by DEL MCKAY PT Discharge Summary Discharge Summary Provider Notified : Physical Therapy Reason for Discharge : Discharged from hospital Discharged to, Therapy : Home, with family care Discharge Summary Comment, PT : pt was evaluated in AM, seen in PM for follow up PTx visit and noted to be COMPLETELY INDEPENDENT with mobility of sit to stand to sit and amb 400 ft 10/18 STG and LTGs met DEL MCKAY PT - 10/03/2020 15:31 EST Short Term Goals Ambulation STG Grid Goal #1 Device : Walker, front wheel Distance : 200' Assist : Supervision or set-up Date to Meet : 10/10/2020 EST Goal Status : Goal met Date Met : 10/03/2020 EST DEL MCKAY, PT - 10/03/2020 15:31 EST Mcfp Goals Ambulation LTG Grid Goal #1 Device : Walker, front wheel Distance : 400' Assist : Independent, modified Date to Meet : 10/17/2020 EST Goal Status : Goal met DEL MCKAY, PT - 10/03/2020 15:31 EST Electronically signed by [facility], [facility] Conversion Nail Technician Cerner at 02/01/2023 6:58 PM CDT documented in this encounter Plan of Treatment Not on file documented as of this encounter Visit Diagnoses Not on filedocumented in this encounter Care Teams Hand Glove Cleaner Relationship Specialty Start Date End Date Mumtaz Larson MD [address] [facility] [address] [place] [id number] PCP - General Family Medicine 08/26/22 documented as of this encounter
--- OUTSIDE RECORDS SUMMARY | 2025-06-16 09:40 | XMS_ITS | Encounter Summary ---
Author Organization [employer] ([place], [place], [place], [place]) Address [address] [place] [address] Care Team Providers Care Vp Clinical Name Role Phone Mumtaz Larson MD Primary Care Provider + [phone] Encounter Details Date Type Department Care Team (Late st Contact Info) Description 04/16/2022 Transcribed Document [facility] [place] Medicine [address] [place] [address] ProviderGabriel MD [address] [place] [address] Social History Tobacco Use Types Packs/Day Years [...] Date Macario rded Speak language other than Malagasy at home Not on file 10/29/2023 Want [...] Historical Provider, - 04/16/2022 12:47 PM CDT Stroke/Warfarin Instructions Entered On: 04/16/2022 12:47 EDT Performed On: 04/16/2022 12:47 EDT by Adore Walker RN-PATIENT CARE BEDSIDE NON-EXEMPT Stroke/Warfarin Instructions Stroke/TIA Discharge Ins : N/A Warfarin Discharge Ins : N/A Adore Walker RN-PATIENT CARE BEDSIDE NON-EXEMPT - 04/16/2022 12:47 EDT Electronically signed by Sherri [facility] Conversion Calender Let Off Helper Cerner at 02/01/2023 6:57 PM CDT documented in this encounter Plan of Treatment Not on file documented as of this encounter Visit Diagnoses Not on filedocumented in this encounter Care Teams Vp Clinical Relationship Specialty Start Date End Date Mumtaz Larson MD [address] [facility] [address] [place] [id number] PCP - General Family Medicine 08/26/22 documented as of this encounter
--- OUTSIDE RECORDS SUMMARY | 2025-06-16 09:40 | XMS_ITS | Encounter Summary ---
Author Organization [employer] ([place], [place], [place], [place]) Address [address] [place] [address] Care Team Providers Care Hide Washer Name Role Phone Mumtaz Larson MD Primary Care Provider + [phone] Encounter Details Date Type Department Care Team (Late st Contact Info) Description 04/16/2022 Transcribed Document [facility] Radiology [address] [place] [address] Elicia Menendez MD [address] [place] [address] [place] [address] Social History Tobacco Use Types Packs/Day Years [...] Note - Elicia Menendez MD - 04/16/2022 6:34 PM EDT In Error documented in this encounter Plan of Treatment Not on file documented as of this encounter Visit Diagnoses Not on filedocumented in this encounter Care Teams Hide Washer Relationship Specialty Start Date End Date Mumtaz Larson MD [address] [facility] [address] [place] [address] PCP - General Family Medicine 08/26/22 documented as of this encounter
--- OUTSIDE RECORDS SUMMARY | 2025-06-16 09:40 | XMS_ITS | Encounter Summary ---
Author Organization [employer] ([place], [place], [place], [place]) Address [address] [place] [address] Care Team Providers Care Dairy Farm Operator Name Role Phone Mumtaz Larson MD Primary Care Provider + [phone] Encounter Details Date Type Department Care Team (Late st Contact Info) Description 10/03/2020 Transcribed Document [facility] [place] Family Medicine [address] [place] [address] ProviderGabriel MD [address] [place], [place] [id number] Social History Tobacco Use Types Packs/Day Years Used Date Smoking Tobacco: Never Assessed Sex and Gender Information Value Date Recorded Sex Assigned at Male 05/13/2022 12:59 PM CDT Legal Sex Male 1:44 PM CDT Gender Identity Male 05/13/2022 12:59 PM CDT Sexual Orientation Not on file documented as of this encounter Miscellaneous Notes * Cerner Conversion Note - Gabriel ProviderMD - 10/03/2020 1:17 PM [facility] DIRECTOR Final Discharge Planning Entered On: 10/03/2020 13:18 EST Performed On: 10/03/2020 13:17 EST by DAVID DAI RN-Head Athletic Trainer Final Discharge Planning Discharge Arrangements : Patient Post-Acute Information Patient Name: TIEN GARCIA Gender: Male : [birth year] Age: 64 Years No Post-Acute Placement(s) Listed No Post-Acute Service(s) Listed No [place] Referral(s) Listed Important Medicare Message Reviewed With : Other: <72hr Transportation Needs : Family/Friend Follow Up Appointment Scheduled : Yes Is Patient High/Moderate Readmission Risk? : No Patient/Family Notified of Plan : Yes Is Patient Ready for Discharge? : Yes Physician Notified Patient is Ready for Discharge? : Yes Discharge To Care Management : Home/Residential/Senior Living or Self Care - DAVID DAI RN-Head Athletic Trainer - 10/03/2020 13:17 EST Electronically signed by [facility] [place] [facility], [facility] Conversion Manager Digital Ad Operations Cerner at 02/01/2023 6:54 PM CDT documented in this encounter Plan of Treatment Not on file documented as of this encounter Visit Diagnoses Not on filedocumented in this encounter Care Teams Dairy Farm Operator Relationship Specialty Start Date End Date Mumtaz Larson MD [address] [facility] [address] [place] [id number] PCP - General Family Medicine 08/26/22 documented as of this encounter
--- OUTSIDE RECORDS SUMMARY | 2025-06-16 09:40 | XMS_ITS | Encounter Summary ---
Author Organization [employer] ([place], [place], [place], [place]) Address [address] [place] [address] Care Team Providers Care Well Tender Name Role Phone Mumtaz Larson MD Primary Care Provider + [phone] Encounter Details Date Type Department Care Team (Late st Contact Info) Description 10/03/2020 Transcribed Document [facility] [place] Family Medicine [address] [place] [address] ProviderGabriel MD [address] [place], [place] [address] Social History Tobacco Use Types Packs/Day Years Used Date Smoking Tobacco: Never Assessed Sex and Gender Information Value Date Recorded Sex Assigned at Male 05/13/2022 12:59 PM CDT Legal Sex Male 1:44 PM CDT Gender Identity Male 05/13/2022 12:59 PM CDT Sexual Orientation Not on file documented as of this encounter Miscellaneous Notes * Cerner Conversion Note - Gabriel ProviderMD - 10/03/2020 10:53 AM HAIRSPRING FABRICATION SUPERVISOR Patient Education Materials Follows: FAQ - Patient COVID-19 testing Why do I need a COVID-19 test in the hospital? We are testing patients as part of an overall effort to ensure the safety of our patients, staff and providers, and to limit the spread of the novel coronavirus throughout our community. What happens if I test positive for COVID-19? Any scheduled elective procedure will be postponed and treatment for the coronavirus will follow the protocol that is currently in place. If you are admitted to the hospital, we will use droplet precautions for patients who test positive for COVID-19. If I'm a patient, should I wear a mask? Yes. When you are in your room alone, you may remove your mask. When anyone enters your room, you should put your mask back on. Will I be allowed to have visitors if I am admitted to the hospital with COVID-19? As part of the standard care for COVID-19 patients, visitors will not be allowed to protect them from potential exposure to the novel coronavirus. If you have a health care support person with you during a pending test and the test comes back positive, your visitor will be asked to leave and follow up with their primary care provider. Public health may reach out to them to complete contact tracing. Will my status as COVID-19 positive be reported? Because COVID-19 is a public health threat, all positive cases are reported through the local health department and the [place] Department for Public Health. Those organizations are responsible for monitoring public health threats. What is contact tracing? The public health departments at the state and local levels use contact tracing to prevent the spread of infectious disease. They will work to identify people who have COVID-19 and their contacts who may have been exposed. What does contact tracing involve? Typically, a contact tracer will interview patients with COVID-19 to identify everyone with whom they have had close contact during the time they may have been infectious and then notify those contacts of potential exposure and refer them for testing. They may monitor the contacts for symptoms of COVID-19 and connect the contacts with services they may need during a recommended self-quarantine period. The patient's name is not revealed to anyone during the contact tracing interviews, even if a contact asks. Who would be considered a close contact ? According to the CDC, a close contact is defined as someone who was within 6 feet of an infected person for at least 15 minutes, starting from 48 hours before the person began feeling sick until the time the patient was isolated. What can a close contact expect during this process? A contact tracer from the health department will contact that person to inform them they have been exposed to COVID-19. If that happens, the contact should self-quarantine for 14 days, starting from the last date of possible exposure, monitor their health, wear a face covering and maintain social distancing - at least 6 feet from others at all times. Should a close contact seek medical care? Close contacts should take their temperature twice a day, watch for COVID-19 symptoms and notify the health department if they develop symptoms. They should also notify people with whom they have had recent close contact if they become ill. They should seek medical care if symptoms worsen or become severe, including trouble breathing, persistent pain or pressure in the chest, confusion, inability to wait or stay awake, or bluish lips or face. Steps to Help Prevent the Spread of COVID-19 if You Are Sick In all cases, follow the guidance of your health care provider and local health department. Your local health department determines the length of time for quarantine and will notify you with detailed information. Monitor your symptoms. Common symptoms of COVID-19 include fever, fatigue, diarrhea/vomiting, loss of taste and smell, and cough. Trouble breathing is a more serious symptom that means you should get medical attention. If you develop emergency warning signs for COVID-19 get medical attention immediately. Emergency warning signs include*: ??? Trouble breathing ??? Persistent pain or pressure in the chest ??? New confusion or inability to arouse ??? Bluish lips or face *This list is not all inclusive. Please consult your medical provider for any other symptoms that are severe or concerning. Call 911 if you have a medical emergency. If you have a medical emergency and need to call 911, notify the non licensed operator that you have, or think you might have, COVID-19. If possible, put on a facemask before medical help arrives. Stay home except to get medical care. ??? Stay home: Most people with COVID-19 have mild illness and can recover at home without medical care. Do not leave your home, except to get medical care. Do not visit public areas. ??? Stay in touch with your doctor. Call before you get medical care. Be sure to get care if you have trouble breathing, or have any other emergency warning signs, or if you think it is an emergency. Separate yourself from other people in your home; this is known as home isolation. ??? Stay away from others: As much as possible, stay away from others. You should stay in a specific sick room if possible, and away from other people in your home. Use a separate bathroom, if available. Call ahead before visiting your doctor. ??? Call ahead: Many medical visits for routine care are being postponed or done by phone or telemedicine. If you have a medical appointment that cannot be postponed, call your doctor's office, and tell them you have or may have COVID-19. This will help the office protect themselves and other patients. If you are sick, wear a facemask in the following situations, if available. ??? If you are sick: You should wear a facemask, if available, when you are around other people (including before you enter a health care provider's office). ??? If you are caring for others: If the person who is sick is not able to wear a facemask (for example, because it causes trouble breathing), then as their caregiver, you should wear a facemask when in the same room with them. Visitors, other than caregivers, are not recommended. Cover your coughs and sneezes. ??? Cover: Cover your mouth and nose with a tissue when you cough or sneeze. ??? Dispose: Throw used tissues into a lined trash can. ??? Wash hands: Immediately wash your hands with soap and water for at least 20 seconds. If soap and water are not available, clean your hands with an alcohol-based hand blocking machine operator that contains at least 60% alcohol. Clean your hands often. ??? Wash hands: Wash your hands often with soap and water for at least 20 seconds when visibly dirty. This is especially important after blowing your nose, coughing or sneezing, and going to the bathroom, and before eating or preparing food. ??? Hand blocking machine operator: Use an alcohol-based hand blocking machine operator with at least 60% alcohol, covering all surfaces of your hands and rubbing them together until they feel dry. ??? Avoid touching: Avoid touching your eyes, nose and mouth with unwashed hands. Avoid sharing personal household items. ??? Do not share: Do not share dishes, drinking glasses, cups, eating utensils, towels or bedding with other people in your home. ??? Wash thoroughly after use: After using these items, wash them thoroughly with soap and water or put them in the frame hand. Clean all high-touch surfaces every day. Clean high-touch surfaces in your isolation area ( sick room and bathroom) every day; let a caregiver clean and disinfect high-touch surfaces in other areas of the home. ??? Clean and disinfect: Routinely clean high-touch surfaces in your sick room and bathroom. Let someone else clean and disinfect surfaces in common areas, but not your bedroom and bathroom. ? If a caregiver or other person needs to clean and disinfect a sick person's bedroom or bathroom, they should do so on an as-needed basis. The caregiver/other person should wear a mask and wait as long as possible after the sick person has used the bathroom. ? High-touch surfaces include phones, remote controls, counters, tabletops, doorknobs, bathroom fixtures, toilets, keyboards, tablets and bedside tables. ??? Clean and disinfect areas that may have blood, stool, or body fluids on them. ??? Household field party manager and disinfectants: Clean the area or item with soap and water or another detergent if it is dirty. Then, use a household disinfectant. ?? Be sure to follow the instructions on the label to ensure safe and effective use of the product. Many products recommend keeping the surface wet for several minutes to ensure germs are killed. Many also recommend precautions such as wearing gloves and making sure you have good ventilation during use of the product. ?? Most EPA-registered household disinfectants should be effective. A full list of disinfectants can be found here: https://www.epa.gov/pesticide-registration/whod-g-eamftjavltely-vui-htyqxts-ua rs-cov-2 Orthopedics Spinal Fusion, Adult, Care After This sheet gives you information about how to care for yourself after your procedure. Your health care provider may also give you more specific instructions. If you have problems or questions, contact your health care provider. What can I expect after the procedure? After the procedure, it is common to have: ??? Back pain and stiffness. ??? Pain in the incision area. Follow these instructions at home: Medicines ??? Take xenm-lqy-xalxarj and prescription medicines only as told by your health care provider. These include any pain medicines or blood thinning medicines (anticoagulants). ??? If you were prescribed an antibiotic medicine, take it as told by your health care provider. Do not stop taking the antibiotic even if you start to feel better. ??? Do not drive for 24 hours if you received a medicine to help you relax (sedative). ??? Do not drive or use heavy machinery while taking prescription pain medicine. If you have a brace: ??? Wear the brace as told by your health care provider. Remove it only as told by your health care provider. ??? Keep the brace clean. Managing pain, stiffness, and swelling ??? If directed, put ice on the injured area: ? If you have a removable brace, remove it as told by your health care provider. ? Put ice in a plastic bag. ? Place a towel between your skin and the bag. ? Leave the ice on for 20 minutes, 2-3 times a day. Incision care ??? Follow instructions from your health care provider about how to take care of your incision. Make sure you: ? Wash your hands with soap and water before you change your bandage (dressing). If soap and water are not available, use hand blocking machine operator. ? Change your dressing as told by your health care provider. ? Leave stitches (sutures), skin glue, or adhesive strips in place. These skin closures may need to be in place for 2 weeks or longer. If adhesive strip edges start to loosen and curl up, you may trim the loose edges. Do not remove adhesive strips completely unless your health care provider tells you to do that. ??? Keep your incision clean and dry. Do not take baths, swim, or use a hot tub until your health care provider approves. ??? Check your incision area every day for signs of infection. Check for: ? More redness, swelling, or pain. ? Fluid or blood. ? Warmth. ? Pus or a bad smell. Physical activity ??? Rest and protect your back as much as possible. ??? Follow instructions from your health care provider about how to move and use good posture to help your spine heal. ??? Do not lift anything that is heavier than 8 lb (3.6 kg) or as told by your health care provider. ??? Do not twist or bend at the waist until your health care provider approves. ??? Avoid: ? Pushing and pulling motions. ? Lifting anything over your head. ? Sitting or lying down in the same position for long periods of time. ??? Do not exercise until your health care provider approves. Once your health care provider has approved exercise, ask him or her what kinds of exercises you can do to make your back stronger (physical therapy). General instructions ??? Wear compression stockings and walk at least every few hours as told by your health care provider. Doing this will help to prevent blood clots and reduce swelling in your legs. ??? Do not use any products that contain nicotine or tobacco, such as cigarettes and e-cigarettes. These can delay bone healing. If you need help quitting, ask your health care provider. ??? To prevent or treat constipation while you are taking prescription pain medicine, your health care provider may recommend that you: ? Drink enough fluid to keep your urine clear or pale yellow. ? Take yfwz-jwe-pisfrgx or prescription medicines. ? Eat foods that are high in fiber, such as fresh fruits and vegetables, whole grains, and beans. ? Limit foods that are high in fat and processed sugars, such as fried and sweet foods. ??? Keep all follow-up visits as told by your health care provider. This is important. Contact a health care provider if: ??? You have pain that gets worse or does not get better with medicine. ??? Your legs or feet become painful or swollen. ??? You have more redness, swelling, or pain around your incision. ??? You have fluid or blood coming from your incision. ??? Your incision feels warm to the touch. ??? You have pus or a bad smell coming from your incision. ??? You have a fever. ??? You vomit or feel nausea. ??? You have weakness or numbness in your legs that is new or getting worse. ??? You have trouble controlling urination or bowel movements. Get help right away if: ??? You have severe pain. ??? You have chest pain. ??? You have trouble breathing. ??? You develop a cough. These symptoms may represent a serious problem that is an emergency. Do not wait to see if the symptoms will go away. Get medical help right away. Call your local emergency services (911 in the [place] Do not drive yourself to the hospital. Summary ??? It is common to have pain at the back and incision area. ??? Icing and pain medicines may help to control the pain. Follow directions from your health care provider. ??? Rest and protect your back as much as possible. Do not twist or bend at the waist. Get up and walk at least every few hours as told by your health care provider. This information is not intended to replace advice given to you by your health care provider. Make sure you discuss any questions you have with your health care provider. Document Released: 04/23/2006 Document Revised: 06/24/2019 Document Reviewed: 09/22/[address] Patient Education ? 2020 itzat. documented in this encounter Plan of Treatment Not on file documented as of this encounter Visit Diagnoses Not on filedocumented in this encounter Care Teams Well Tender Relationship Specialty Start Date End Date Mumtaz Larson MD [address] [facility] [address] [place] [id number] PCP - General Family Medicine 08/26/22 documented as of this encounter
--- OUTSIDE RECORDS SUMMARY | 2025-06-16 09:40 | XMS_ITS | Encounter Summary ---
Author Organization [employer] ([place], [place], [place], [place]) Address [address] [place] [address] Care Team Providers Care Reset Merchandiser Name Role Phone Mumtaz Larson MD Primary Care Provider + [phone] Encounter Details Date Type Department Care Team (Late st Contact Info) Description 04/09/2022 Transcribed Document [facility] [place] Family Medicine [address] [place] [address] ProviderGabriel MD [address] [place] [address] Social History Tobacco Use Types Packs/Day Years [...] Date Macario rded Speak language other than Gambian at home Not on file 10/29/2023 Want [...] Conversion Note - Historical Provider, - 04/09/2022 9:00 AM CDT Pain Assessment Entered On: 04/09/2022 12:15 EDT Performed On: 04/09/2022 9:38 EDT by Cristhian Wen, RN Intervention Information: acetaminophen Performed by Cristhian eWn, RN on 04/09/2022 08:38:00 EDT acetaminophen,650mg Oral Pain Assessment Pain Scale Goal : 2 Cristhian Wen, RN - 04/09/2022 12:15 EDT Electronically signed by [facility] Conversion Assistant Therapy Aide Cerner at 02/01/2023 6:56 PM CDT documented in this encounter Plan of Treatment Not on file documented as of this encounter Visit Diagnoses Not on filedocumented in this encounter Care Teams Reset Merchandiser Relationship Specialty Start Date End Date Mumtaz Larson MD [address] [facility] [address] [place] [id number] PCP - General Family Medicine 08/26/22 documented as of this encounter
--- OUTSIDE RECORDS SUMMARY | 2025-06-16 09:40 | XMS_ITS | Encounter Summary ---
Author Organization [employer] ([place], [place], [place], [place]) Address [address] [place] [address] Care Team Providers Care Cyber Security Administrator Name Role Phone Mumtaz Larson MD Primary Care Provider + [phone] Encounter Details Date Type Department Care Team (Late st Contact Info) Description 10/03/2020 Transcribed Document [facility] Radiology [address] [place] [id number] Angeline Amos MD [address] [address] Social History Tobacco Use Types Packs/Day Years Used Date Smoking Tobacco: Never Assessed Sex and Gender Information Value Date Recorded Sex Assigned at Male 05/13/2022 12:59 PM CDT Legal Sex Male 1:44 PM CDT Gender Identity Male 05/13/2022 12:59 PM CDT Sexual Orientation Not on file documented as of this encounter Miscellaneous Notes * Cerner Conversion Note - Angeline Amos MD - 10/03/2020 9:51 AM EST Patient: TIEN GARCIA Age: 64 years Sex: Male : 1955 Associated Diagnoses: None Author: REECE FREEDMAN PA-SANDY 10/03/2020 cc: medical management s/p L4-[address] Ordonez S: Pt is doing ok. No f'/c/s. No n/v/d. (-) gas, (-) BM. No CP, SOA, palpitations. No cough or sputum. Urinating well. +post op pain. Using incentive spirometer. HPI: Patient is a 64 yo male admitted to [facility] per Dr. Ordonez for an L4-5 TLIF. Preoperatively patient was found to have advanced spondylolisthesis of the lumbar spine and elected surgical intervention after failing conservative treatment. Patient is followed perioperatively while hospitalized for medical management. Initial visit with patient in preop where he reports back and left hip pain. Patient denies any recent exacerbations of chronic medical problems. Patient denies recent cardiopulmonary symptoms in the weeks leading up to surgery. Patient denies recent fever, chills or nightsweats. Patient denies recent sinus infection, bronchitis, or pneumonia. Denies recent asthma exacerbations. He does have BRETT, uses a bipap at night. Denies gastroenteritis. He does have hx of prostate CA with radiation. still seen by Jennifer. Denies chest pain, pressure or palpitations. He is diabetic, takes metformin at home, reports BS well controlled but does not know last A1C. Denies recent antibiotics or med changes by PCP. Patients physical limitations are limited by back disability. Past Med Hx: Active Problems (10) Allergic rhinitis Arthritis Bronchitis Diabetes mellitus type II GERD - Gastro-esophageal reflux disease Hard of hearing High blood pressure History of obstructive sleep apnea Microscopic colitis Prostate cancer Active Procedures (5) Appendectomy Brachytherapy hand surgery knee scope umbilical hernia repair Family Hx: mother and father still alive, denies that they have any medical issues Social & Psychosocial Habits Alcohol 09/27/2020 Alcohol Use History, Social Habits No Alcohol Use in Last Twelve Months No Substance Abuse 09/27/2020 Recreational Drug Use History No Recreational Drug Use Last 12 Months No Tobacco 09/27/2020 Smoking Status Former smoker, quit more Smokeless Tobacco Status Never Smokeless Tobacco Use History None Month Tobacco Last Used quit in the 80s Allergies (1) Active Reaction No Known Medication Allergies None Documented No qualifying data available Vitals Signs (last 24 hrs) Last Charted Minimum Maximum Temp 97.8 (OCT 03 05:28) 97.8 (OCT 03 05:28) 98.5 (OCT 02 17:18) Mon HR 70 (OCT 03 05:28) 70 (OCT 02 18:15) 81 (OCT 02 21:04) Resp Rate 16 (OCT 03 05:28) 15 (OCT 02 18:30) 20 (OCT 02 13:00) SBP 119 (OCT 03 05:28) 107 (OCT 02 17:25) H 157 (OCT 02 17:18) DBP 68 (OCT 03 05:28) 63 (OCT 02 18:30) 80 (OCT 03 02:44) MAP 79 (OCT 03 05:28) 79 (OCT 03 05:28) 100 (OCT 02 17:20) SpO2 94 (OCT 03 05:28) L 92 (OCT 02 17:30) 97 (OCT 02 18:00) GEN: Alert, awake, NAD CV: S1S2, no murmur. No LE edema Resp: CTAB, NL; no wheezes Abd: Soft, NT, ND +BS excellent throughout. Skin: no rashes on inspection and palpation. Ext: No LE edema. No joint edema, erythema. Neuro: A&O x 3 Data: reviewed preop CBC, BMP, UA Blood Gases (Current Encounter/Past 24 Hours) No Blood Gas Results Found (Past 24 Hours) Electrolytes(BMP) Results (Current Encounter/Past 24 Hours) Sodium Level 137 mmol/L 10/03/2020 04:19 Potassium Level 3.5 mmol/L 10/03/2020 04:19 Chloride Level 101 mmol/L LOW 10/03/2020 04:19 Carbon Dioxide Level 28 mmol/L 10/03/2020 04:19 Anion Gap 12 10/03/2020 04:19 Blood Urea Nitrogen 17 mg/dL 10/03/2020 04:19 Glucose Level 146 mg/dL NC 10/03/2020 04:19 Calcium Level 8.5 mg/dL 10/03/2020 04:19 Creatinine Level 1.20 mg/dL 10/03/2020 04:19 Cardiac Markers (Current Encounter/Past 24 Hours) No Cardiac Marker Results Found (Past 24 Hours) CBC Results (Current Encounter/Past 24 Hours) WBC 10.2 K/uL NC 10/03/2020 03:51 Hct 41.8 % 10/03/2020 03:51 Hgb 13.6 g/dL 10/03/2020 03:51 Platelet Count 282 K/uL 10/03/2020 03:51 CMP Results (Current Encounter/Past 24 Hours) Creatinine Level 1.20 mg/dL 10/03/2020 04:19 Bun/Creatinine 14.2 10/03/2020 04:19 eGFR >60 mL/min/1.73m2 10/03/2020 04:19 eGFR NonAfrican >60 mL/min/1.73m2 10/03/2020 04:19 Sodium Level 137 mmol/L 10/03/2020 04:19 Potassium Level 3.5 mmol/L 10/03/2020 04:19 Chloride Level 101 mmol/L LOW 10/03/2020 04:19 Carbon Dioxide Level 28 mmol/L 10/03/2020 04:19 Anion Gap 12 10/03/2020 04:19 Blood Urea Nitrogen 17 mg/dL 10/03/2020 04:19 Glucose Level 146 mg/dL HI 10/03/2020 04:19 Calcium Level 8.5 mg/dL 10/03/2020 04:19 Coagulation Results (Current Encounter/Past 24 Hours) No Coagulation Results Found (Past 24 Hours) Creatinine Clearance (Current Encounter/Past 24 Hours) Creatinine Level 1.20 mg/dL 10/03/2020 04:19 Bun/Creatinine 14.2 10/03/2020 04:19 Estimated Creatinine Clearance 70.40 mL/Min 10/03/2020 04:19 Radiology Results (Last 48 hours) [id number] -- 10/02/2020 06:[address] in OR (10/02/2020 17:11) Result: CT SPINE LUMBAR IN THE ORINDICATION: Intraoperative exam. Back pain.TECHNIQUE: Thin section axial images were obtained through the lumbarspine with the patient in prone position using the Mobilio CT system. Thiswas obtained in the operating room to assist with surgical planning.COMPARISON: None.FINDINGS: There are mild aortoiliac vascular calcifications. There isscattered diverticulosis. There are postoperative changes from fusion.Hypertrophic facets are noted within the lumbar spine. There is SI jointdegenerative changes.IMPRESSION: Intraoperative CT as above.Images reviewed, interpreted, and dictated by Edmundo Lewis MD Impression: advanced spondylolisthesis Lspine -s/p L4-[address] Ordonez obesity reduced GFR on labs hx BRETT uses bipap hx DMII hx prostate CA hx HTN Plan: hold BP meds if SBP is <120 recommend pt take his metamucil at home recommed colace 100 mg bid while on pain meds. OK to discharge from IM standpoint pain meds per surgery bowel regimen at home IS at home Assessment and treatment plan made in conjunction with Jean Amos MD Scribed by Brisa Card documented in this encounter Plan of Treatment Not on file documented as of this encounter Visit Diagnoses Not on filedocumented in this encounter Care Teams Cyber Security Administrator Relationship Specialty Start Date End Date Mumtaz Larson MD [address] [place] [facility] [address] [place] [id number] PCP - General Family Medicine 08/26/22 documented as of this encounter
--- OUTSIDE RECORDS SUMMARY | 2025-06-16 09:40 | XMS_ITS | Encounter Summary ---
Author Organization [employer] ([place], [place], [place], [place]) Address [address] [place] [address] Care Team Providers Care Hybrid Corn Breeder Name Role Phone Mumtaz Larson MD Primary Care Provider + [phone] Encounter Details Date Type Department Care Team (Late st Contact Info) Description 04/09/2022 Transcribed Document [facility] [place] [address] [place] [address] ProviderGabriel MD [address] [place] [address] Social History Tobacco Use Types Packs/Day Years [...] Date Macario rded Speak language other than Kenyan at home Not on file 10/29/2023 Want [...] Conversion Note - Historical Provider, - 04/09/2022 9:58 AM CDT HEARING INSTRUMENT SPECIALIST Attempt to Treat Entered On: 04/09/2022 10:00 EDT Performed On: 04/09/2022 9:58 EDT by ERIC TATE SLP Attempt to Treat Unable to Treat Due To : Acuity of Illness Inability to Treat Comment : Attempted session however no notable change reported per RN; requiring continuous bipap at this time - Corpak in place; plans for TF this date. HEARING INSTRUMENT SPECIALIST to hold and recheck next service date ERIC TATE SLP - 04/09/2022 9:58 EDT documented in this encounter Plan of Treatment Not on file documented as of this encounter Visit Diagnoses Not on filedocumented in this encounter Care Teams Hybrid Corn Breeder Relationship Specialty Start Date End Date Mumtaz Larson MD [address] [place] [facility] [address] [place] [phone] PCP - General Family Medicine 08/26/22 documented as of this encounter
--- OUTSIDE RECORDS SUMMARY | 2025-06-16 09:40 | XMS_ITS | Encounter Summary ---
Author Organization [employer] ([place], [place], [place], [place]) Address [address] [place] [address] Care Team Providers Care Setter Molding And Coremaking Machines Name Role Phone Mumtaz Larson MD Primary Care Provider + [phone] Encounter Details Date Type Department Care Team (Late st Contact Info) Description 04/09/2022 Transcribed Document [facility] [place] [address] [place] [address] ProviderGabriel MD [address] [place] [address] Social History Tobacco Use Types Packs/Day Years [...] Conversion Note - Historical Provider, - 04/09/2022 10:27 AM CDT Patient: TIEN GARCIA Age: 66 years Sex: Male : 1955 Associated Diagnoses: None Author: SRAVAN HIDALGO MD-TEETEE Subjective Pt is now on bipap; reports he slept well last night. Overall unchanged today, does c/o restless legs (typically takes pramipexole) Objective VS/Measurements Vital Signs/Vital Measures 04/09/2022 9:00 EDT Systolic Blood Pressure 121 mmHg Diastolic Blood Pressure 76 mmHg Heart Rate Monitored 73 bpm 04/09/2022 8:00 EDT Temperature, Fahrenheit 97.8 Deg F General: Awake and alert; speech difficult to understand on bipap but able to follow commands well. Eye: Pupils are equal, round and reactive to light, Extraocular movements are intact, R>L ptosis. Respiratory: on bipap. Cardiovascular: Normal rate, Regular rhythm. Neurologic: Facial weakness noted, CN otherwise intact; motor strength is 5/5 throughout, sensation intact. No ataxia; reflexes are 2+. Restless legs noted. Psychiatric: Cooperative. Results Review Labs reviewed; HIV negative. AchR antibodies pending CT chest pending- will be done today Impression and Plan 66yo M with h/o recent viral meningitis admitted with one week history of difficulty swallowing, slurred speech now with respiratory failure and facial weakness; moved to ICU yesterday for closer monitoring and now on bipap. He is on day 2/5 IV Ig and day 3/5 IV solumedrol; he is on Mestinon as well which does improve symptoms for a short while. Clinically I have high suspicion for myasthenia gravis; other possibilities would include paraneoplastic disorder, encephalitis including tick or mosquito borne illness, toxic exposure such as botulism, variant of Guillain [place], stroke or structural brain lesion. We are awaiting multiple labs including antibodies for myasthenia gravis; MRI brain has not yet been done as he cannot tolerate lying flat- will plan to obtain when able. Serum testing for Lyme and West Nile ordered. He will get CT chest today to evaluate for thymoma or other mass. I will consider LP if he is not improving on current treatment- note this will likely be abnormal given viral meningitis one month ago. Continue current care with IV Ig, steroids and mestinon; added his home dose Pramipexole for restless legs today. Prognosis guarded; discussed with patient and . Neurology will follow closely. Electronically signed by Sherri, Lizabeth Conversion Veterinary Technician Instructor Cerner at 02/01/2023 6:44 PM CDT documented in this encounter Plan of Treatment Not on file documented as of this encounter Visit Diagnoses Not on filedocumented in this encounter Care Teams Setter Molding And Coremaking Machines Relationship Specialty Start Date End Date Mumtaz Larson MD [address] [place] [facility] [address] [place] [phone] PCP - General Family Medicine 08/26/22 documented as of this encounter
--- OUTSIDE RECORDS SUMMARY | 2025-06-16 09:40 | XMS_ITS | Encounter Summary ---
Author Organization [employer] ([place], [place], [place], [place]) Address [address] [place] [address] Care Team Providers Care Waiter Waitress Name Role Phone Mumtaz Larson MD Primary Care Provider + [phone] Encounter Details Date Type Department Care Team (Late st Contact Info) Description 04/09/2022 Transcribed Document [facility] [place] [address] [place] [address] ProviderGabriel MD [address] [place] [address] Social History Tobacco Use Types Packs/Day Years [...] Date Macario rded Speak language other than Serbian at home Not on file 10/29/2023 Want [...] Conversion Note - Historical Provider, - 04/09/2022 10:40 AM CDT Central Line Checklist Entered On: 04/09/2022 11:23 EDT Performed On: 04/09/2022 10:40 EDT by Daly Lozano RN Central Line Checklist Kendra Gordon RN - 04/09/2022 12:28 EDT documented in this encounter Plan of Treatment Not on file documented as of this encounter Visit Diagnoses Not on filedocumented in this encounter Care Teams Waiter Waitress Relationship Specialty Start Date End Date Mumtaz Larson MD [address] [facility] [address] [place] [phone] PCP - General Family Medicine 08/26/22 documented as of this encounter
--- OUTSIDE RECORDS SUMMARY | 2025-06-16 09:40 | XMS_ITS | Encounter Summary ---
Author Organization [employer] ([place], [place], [place], [place]) Address [address] [place] [address] Care Team Providers Care Plastic Cutter Name Role Phone Mumtaz Larson MD Primary Care Provider + [phone] Encounter Details Date Type Department Care Team (Late st Contact Info) Description 04/09/2022 Transcribed Document [facility] [place] [address] [place] [address] ProviderGabriel MD [address] [place] [address] Social History Tobacco Use Types Packs/Day Years [...] Date Macario rded Speak language other than Israeli at home Not on file 10/29/2023 Want [...] Conversion Note - Historical Provider, - 04/09/2022 11:35 AM CDT Patient: TIEN GARCIA Age: 66 years Sex: Male : 1955 Associated Diagnoses: None Author: BLAINE DRAPER MD Subjective Seen and examined this morning Transferred to ICU for close monitoring on BiPAP pyridostigmine and IV steroid no Family at bedside Review of Systems Blurry vision unable to raise his right eye lid Difficulty swallowing Shortness of breath No fever no chills Health Status Allergies: Allergic Reactions (Selected) No Known Medication Allergies, Allergies (1) Active Reaction No Known Medication Allergies None Documented Current medications: (Selected) Inpatient Medications Ordered Benadryl: 25 mg, IV Push, Daily Cathflo Activase: 1 mg, IV Push, 1-Time, PRN: Other (See Comment) Dextrose 50% injection: 12.5 Gram, IV Push, [...] Nebulized Inhalation, RT_Q6H, PRN: Shortness of Breath Mestinon: 60 mg, Oral, TID Milk of [...] 500 mg, 50 mL/Hr, IV Piggyback, BID Sodium Chloride 0.9% intravenous solution 1,000 mL: 50 mL/Hr, IntraVENous Tylenol: 650 mg, Oral, Daily Tylenol: 650 mg, Oral, Q4H, PRN: Pain (Mild 1-3) Zofran: 4 mg, IV Push, Q4H, PRN: Nausea Zosyn + Sodium Chloride 0.9% intravenous solution 100 mL: 3.375 Gram, 33.33 mL/Hr, IV Piggyback, Q6HInt dexmedeTOMIDine injection 400 mcg + NaCl 0.9% for drip 100 mL: TITRATE, IntraVENous glucagon: 1 mg, IntraMuscular, Q15Min, PRN: Other [...] IV Push, Q1H, PRN: Other (See Comment) pramipexole: 0.25 mg, Oral, At Bedtime Documented Medications Documented Benadryl 25 mg oral tablet: 1 Tab, Oral, TID, PRN: Allergies, 0 Refill(s) Cymbalta 60 mg oral delayed release capsule: 2 Cap, Oral, Daily, (do not crush or chew), 30 Cap, 0 Refill(s) Entocort EC 3 mg oral delayed release capsule: 3 Cap, Oral, Daily, 0 Refill(s) Flomax 0.4 mg oral capsule: 1 Cap, Oral, Daily, 0 Refill(s) Flonase: 1 [place], Nostrils Both, Daily, 0 Refill(s) MetFORMIN (Eqv-Glucophage [...] Tab, Oral, At Bedtime, 0 Refill(s), Medications (32) Active Scheduled: (13) #NaCl 0.9% [...] mL 3 mL, Nebulized Inhalation, RT_Q6H alteplase 2 mg inj 1 mg, IV Push, 1-Time bisacodyl EC 5 mg tab 5 [...] tab 5 mg 1 Tab, Oral, Q4H Problem list: Medical Allergic rhinitis / SNOMED CT 538490953 / Confirmed Hard of hearing / SNOMED CT 209339012 / Confirmed High blood pressure / SNOMED CT 45396104 / Confirmed Bronchitis / SNOMED CT 86479708 / Confirmed GERD - Gastro-esophageal reflux disease / SNOMED CT 2649851321 / Confirmed Microscopic colitis / SNOMED CT 918386882 / Confirmed Arthritis / SNOMED CT 4334693 / Confirmed Diabetes mellitus type II / SNOMED CT 47647657 / Confirmed Prostate cancer / SNOMED CT 6640170076 / Confirmed History of obstructive sleep apnea / IMO 09241400 / Confirmed, Active Problems (10) Allergic rhinitis Arthritis Bronchitis Diabetes mellitus type II GERD - Gastro-esophageal reflux disease Hard of hearing High blood pressure History of obstructive sleep apnea Microscopic colitis Prostate cancer Objective VS/Measurements Vitals Signs (last 24 hrs) Last Charted Minimum Maximum Temp 97.8 (APR 09 08:00) 97.8 (APR 09 08:00) 98.1 (APR 08 13:36) Mon HR 73 (APR 09 09:00) 58 (APR 09 08:45) 130 (APR 08 22:43) Resp Rate 17 (APR 09 09:00) 16 (APR 08 13:13) H 36 (APR 08 17:00) SBP 121 (APR 09 09:00) 118 (APR 09 04:00) H 156 (APR 08 22:00) DBP 76 (APR 09 09:00) 65 (APR 09 04:00) H 98 (APR 08 22:00) MAP 94 (APR 09 09:00) 86 (APR 09 04:00) 122 (APR 08 22:00) SpO2 96 (APR 09 09:00) L 92 (APR 08 13:03) 98 (APR 09 06:00) General: Alert and oriented, No acute distress. [...] mood & affect. Review / Management APR 09 06:59 144 109 22 / H 167 3.6 31 0.80 \ APR 09 06:59 \ 14.8 / 8.8 326 / 43.9 \ Radiology Results (Last 48 hours) [id number] -- 04/06/2022 15:42 CR Chest 1 Vw Portable (04/07/2022 13:34) Result: PORTABLE CHEST 04/07/2022 1:32 PM HISTORY: Shortness of air.COMPARISON: 19 hours prior.FINDINGS: The heart is normal in size . The mediastinum isunremarkable . There are right lower lobe opacities. There are smallbilateral pleural effusions. There is no pneumothorax . The osseousstructures are unremarkable .IMPRESSION: Opacities as above, likely secondary to pneumonia. Follow-up to complete resolution recommended . Images reviewed, interpreted, and dictated by Dr. Bassam Hernández.Transcribed by Kristina Hand(R).I have personally viewed, interpreted and dictated the examination. Ihave read and agree with the above final transcribed report. CR Abdomen 1 Vw Portable (04/07/2022 15:13) Result: KUBHISTORY: Feeding tube placement.COMPARISON: None.FINDINGS: The feeding tube is identified below the diaphragm. The bowelgas pattern is nonspecific.IMPRESSION: Feeding tube tip terminates in the lateral stomach.Images reviewed, interpreted, and dictated by Dr. Bassam Hernández.Transcribed by Kristina Hand(R).I have personally viewed, interpreted and dictated the examination. Ihave read and agree with the above final transcribed report. CR Chest 1 Vw Portable (04/08/2022 06:52) [...] minutes.FLUORO Films: 1.HISTORY: Malnutrition.ATTENDING RADIOLOGIST: Dr. Hernández.PHYSICIAN FINANCE MGR: Mayelin Valdez PA-C.FINDINGS: The patient's existing feeding [...] 17 (VERO 22) 15 (VERO 21) 13 (VERO 20) Cr 0.80 (APR 09) 0.70 (APR 08) 0.70 (APR 07) 0.80 (APR 06) Glu R H 167 (APR 09) H 167 (APR 08) 105 (APR 07) H 127 (APR 06) Ca 9.0 (APR 09) 9.1 (APR 08) 9.0 (APR 07) 9.1 (APR 06) AST H 39 (APR 08) 26 (APR 06) ALT 49 (APR 08) 31 (APR 06) ALK P 73 (APR 08) 64 (APR 06) T Bili 1.1 (APR 08) 0.7 (APR 06) PTN 7.7 (APR 08) 8.0 (APR 06) ALB 3.7 (APR 08) 4.4 (APR 06) . Impression and Plan # Myasthenia Gravis crisis Neuro check Keep n.p.o. Speech evaluation labs noted Pyridostigmine and high IV steroid monitor symptoms neurology following Ach receptor binding Ab ordered Monitor respiratory status, chest x-ray un remarkable CT chest to rule out thymoma if able to lay flat #Dysphagia Secondary to myasthenia gravis versus stroke MRI brain when he can lay flat Keep n.p.o. Speech therapy Corpak placement #Acute hypoxic respiratory failure Aspiration pneumonia likely secondary from neuro musculare involvement from myasthenia Respiratory PCR negative, CXR noted Breathing treatment PRN BiPAP for increased work of breathing At risk of worsening respiratory status consulted pulmonary #Aspiration pneumonia Sputum culture IV Zosyn Breathing treatment #Hypokalemia and hypophosphatemia Replace with IV #Hypothyroidism Patient on levothyroxine at home Check TSH #Diabetes mellitus Sliding-scale insulin Monitor blood sugar #HTN Use IV hydralazine PRN #Restless leg syndrome Resume home medications Discussed with patient, Discussed with Pulmonary Discussed with PRODUCT PROMOTER SALES PERSON Labs, imaging chart from outside hospital reviewed Medically complex at risk of worsening condition CCT Time spent 33 minutes Disposition: Admitted for dysphagia blurry vision, secondary to myasthenia gravis, neurology following, started on pyridostigmine, IV steroid CT chest and MRI brain when able to lay flat, Indu, PT./OT. IV steroid Pulmonary following at risk of worsening respiratory status and intubation .close monitoring in ICU documented in this encounter Plan of Treatment Not on file documented as of this encounter Visit Diagnoses Not on filedocumented in this encounter Care Teams Plastic Cutter Relationship Specialty Start Date End Date Mumtaz Larson MD [address] [place] [facility] [address] [place] [phone] PCP - General Family Medicine 08/26/22 documented as of this encounter
--- OUTSIDE RECORDS SUMMARY | 2025-06-16 09:40 | XMS_ITS | Encounter Summary ---
Author Organization [employer] ([place], [place], [place], [place]) Address [address] [place] [address] Care Team Providers Care Wastewater Plant Civil Engineer Name Role Phone Mumtaz Larson MD Primary Care Provider + [phone] Encounter Details Date Type Department Care Team (Late st Contact Info) Description 10/03/2020 Transcribed Document [facility] [place] Family Medicine [address] [place] [address] ProviderGabriel MD [address] [place], [place] [address] Social History Tobacco Use Types Packs/Day Years Used Date Smoking Tobacco: Never Assessed Sex and Gender Information Value Date Recorded Sex Assigned at Male 05/13/2022 12:59 PM CDT Legal Sex Male 1:44 PM CDT Gender Identity Male 05/13/2022 12:59 PM CDT Sexual Orientation Not on file documented as of this encounter Miscellaneous Notes * Cerner Conversion Note - Historical ProviderMD - 10/03/2020 1:09 PM CHILI MAKER Initial Discharge Planning Entered On: 10/03/2020 13:17 EST Performed On: 10/03/2020 13:09 EST by DAVID DAI RN-Rib Matcher And Fitter Initial Assessment I Previously Documented Living Environment : No qualifying data available. Living Situation : Home Patient Lives With : Adult Child/Children, Family member(s), Spouse Is the Patient a Caregiver at Home? : No Emergency Contact #1 : `Clare King Emergency Contact #1 Phone Number : `[phone] Emergency Contact #1 Relationship : ` Emergency Contact #2 : none` Emergency Contact #2 Phone Number : none` Emergency Contact #2 Relationship : none` Enter Doctors Name : MUMTAZ ALRSON (REF) Kyrie Does Patient have PCP Listed? : Yes DAVID DAI RN-Rib Matcher And Fitter - 10/03/2020 13:09 EST Initial Assessment II Sensory and Motor Deficits : None Current Home Treatments and Equipment : BiPAP, Walker Does the Patient have a Floor to SNF Benefit? : Yes DAVID DAI RN-Rib Matcher And Fitter - 10/03/2020 13:09 EST Discharge Needs I Anticipated Discharge Date : 10/03/2020 EST Anticipated Discharge To, CM : Home with family care Current Home Treatment/Equipment : Current Home Treatment/Equipment No qualifying data available. Post Acute/Home Treatments : None Documentation Status Complete : Yes DAVID DAI RN-Rib Matcher And Fitter - 10/03/2020 13:09 EST Discharge Needs II Professional Skilled Services : Professional Skilled Services No qualifying data available. Needs Assistance with Transportation : No DAVID DAI RN-Rib Matcher And Fitter - 10/03/2020 13:09 EST Narrative Note Narrative Note : 64yo male pt s/p L4-5 TLIF. Met with pt at bedside to discuss DCP. Pt has DME at home. He ambulated 380ft with therapy. Pt denies needs. Pt dc'd home today. DAVID DAI RN-Rib Matcher And Fitter - 10/03/2020 13:09 EST documented in this encounter Plan of Treatment Not on file documented as of this encounter Visit Diagnoses Not on filedocumented in this encounter Care Teams Wastewater Plant Civil Engineer Relationship Specialty Start Date End Date Mumtaz Larson MD [address] [facility] [address] [place] [address] PCP - General Family Medicine 08/26/22 documented as of this encounter
--- OUTSIDE RECORDS SUMMARY | 2025-06-16 09:40 | XMS_ITS | Encounter Summary ---
Author Organization [employer] ([place], [place], [place], [place]) Address [address] [place] [address] Care Team Providers Care Lapping Machine Tender Name Role Phone Mumtaz Larson MD Primary Care Provider + [phone] Encounter Details Date Type Department Care Team (Late st Contact Info) Description 10/02/[address] [facility] Radiology [address] [place] [id number] Angeline Amos MD [facility] [address] [address] Social History Tobacco Use Types [...] Conversion Note - Angeline Amos MD - 10/02/2020 11:26 AM EST Patient: TIEN GARCIA Age: 64 years Sex: Male : 1955 Associated Diagnoses: None Author: YARITZA MISHRA APRN-FAM 10/02/2020 cc: medical management s/p L4-[address] Ordonez HPI: Patient is a 64 yo male admitted to [facility] per Dr. Ordonez for an L4-5 TLIF. [...] Reaction No Known Medication Allergies None Documented Home Medications (18) Active allopurinol 300 mg oral tablet 300 mg = 1 Tab, Oral, Daily atenolol-chlorthalidone 100 mg-25 mg oral tablet 1 Tab, Oral, Daily Benadryl 25 mg oral capsule 25 mg = 1 Cap, PRN, Oral, TID cyclobenzaprine 5 mg oral tablet 5 mg = 1 Tab, Oral, TID DULoxetine 120 mg, Oral, Daily Entocort EC 3 mg, Oral, Daily FiberCon 1 Tab, Oral, Daily Flomax 0.4 mg oral capsule 0.4 mg = 1 Cap, Oral, Daily Flonase 1 Sublimity, Nostrils Both, Daily levothyroxine 50 mcg (0.05 mg) oral tablet 50 mcg = 1 Tab, Oral, Daily Melatonin 5 mg oral tablet 5 mg = 1 Tab, PRN, Oral, Once a day (at bedtime) metFORMIN 500 mg oral tablet 500 mg = 1 Tab, Oral, BID multivitamin 1 Tab, Oral, Daily omeprazole 20 mg, Oral, Daily potassium chloride 20 mEq oral tablet, extended release 20 mEq = 1 Tab, Oral, BID pramipexole 0.25 mg oral tablet 0.25 mg = 1 Tab, Oral, Daily SEROquel 400 mg oral tablet 400 mg = 1 Tab, Oral, BID TriCor 145 mg oral tablet 145 mg = 1 Tab, Oral, Daily ROS: Constitutional: [No fevers, chills, sweats] Respiratory: [No shortness of breath, cough] Cardiovascular: [No Chest pain, palpitations, syncope, shortness of breath while laying flat] Gastrointestinal: [No nausea, vomiting, diarrhea, constipation] Genitourinary: [No hematuria, dysuria] Musculoskeletal: [+ back pain, +left hip pain, decreased range of motion] Neurologic: [No weakness, numbness] Psychiatric: [+ anxiety, +depression] Exam: No qualifying data available PE: obese white male, pleasant, cooperative, good historian, sitting on side of bed in PACU pink conjunctiva, dry mucous membranes, no thyromegaly or cervical lymphadenopathy =expansion b/l , no wheezing or rhonchi non-displaced PMI, S1S2 ABD is obese, soft non-tender, non-distended, norm bowel sounds skin warm, dry without rashes ext: no low ext edema, no calf tenderness neuro: cn 2-12 intact; no gross motor -sensory deficits psych: appropriate affect and mood Data: reviewed preop CBC, BMP, UA Labs (Last four charted values) WBC 7.8 (SEP 30) HB 16.3 (SEP 30) HCT 48.0 (SEP 30) Plt 297 (SEP 30) Na 138 (SEP 30) K 3.6 (SEP 30) Cl L 101 (SEP 30) CO2 31 (SEP 30) BUN 22 (SEP 30) Cr 1.30 (SEP 30) Glu R H 116 (SEP 30) Ca 9.8 (SEP 30) Impression: advanced spondylolisthesis Lspine -Awaiting an L4-[address] Ordonez obesity reduced GFR on labs hx BRETT uses bipap hx DMII hx prostate CA hx HTN Plan: watch renal function, avoid nephrotoxic agents bipap QHS hold metformin, start accuchecks with SSI hold chlorthalidone Monitor HTN; add PRN's, hold parameters bowel regimen incentive spirometer PT/OT DVT prophylaxis noted Pain management deferred to surgeon will monitor hb/hct daily for signs of ongoing acute blood loss will monitor bun/cr daily for signs of dehydration, prerenal azotemia will monitor for signs/symptoms of post-op wound infection or hospital acquired infectious process accuchecks qac, qhs for blood glucose monitoring; will hold oral diabetic agents while hospitalized. will use short acting insulin for correction. may add long-acting insulin for persistent hyperglycemia resume outpatient medication regimen for comorbidities Assessment and treatment plan made in conjunction with Jean Amos MD Scribed by Brisa Card documented in this encounter Plan of Treatment Not on file documented as of this encounter Visit Diagnoses Not on filedocumented in this encounter Care Teams Lapping Machine Tender Relationship Specialty Start Date End Date Mumtaz Larson MD [address] [facility] [address] [place] [id number] PCP - General Family Medicine 08/26/22 documented as of this encounter
--- OUTSIDE RECORDS SUMMARY | 2025-06-16 09:40 | XMS_ITS | Encounter Summary ---
Author Organization [employer] ([place], [place], [place], [place]) Address [address] [place] [address] Care Team Providers Care Tax Intern Name Role Phone Mumtaz Larson MD Primary Care Provider + [phone] Encounter Details Date Type Department Care Team (Late st Contact Info) Description 10/03/[address] [facility] [place] Family Medicine [address] [place] [address] ProviderGabriel MD [address] [place] [address] Social History Tobacco Use Types Packs/Day Years Used Date Smoking Tobacco: Never Assessed Sex and Gender Information Value Date Recorded Sex Assigned at Male 05/13/2022 12:59 PM CDT Legal Sex Male 1:44 PM CDT Gender Identity Male 05/13/2022 12:59 PM CDT Sexual Orientation Not on file documented as of this encounter Miscellaneous Notes * Cerner Conversion Note - Historical ProviderMD - 10/03/2020 10:57 AM SEAM PRESSER Stroke/Warfarin Instructions Entered On: 10/03/2020 10:57 EST Performed On: 10/03/2020 10:57 EST by MEL MORILLO RN Stroke/Warfarin Instructions Stroke/TIA Discharge Ins : N/A Warfarin Discharge Ins : N/A MEL MORILLO RN - 10/03/2020 10:57 EST Electronically signed by Sherri [facility] Conversion Diversity Manager Cerner at 02/01/2023 7:11 PM CDT documented in this encounter Plan of Treatment Not on file documented as of this encounter Visit Diagnoses Not on filedocumented in this encounter Care Teams Tax Intern Relationship Specialty Start Date End Date Mumtaz Larson MD [address] [place] [facility] [address] [place] [id number] PCP - General Family Medicine 08/26/22 documented as of this encounter
--- OUTSIDE RECORDS SUMMARY | 2025-06-16 09:40 | XMS_ITS | Encounter Summary ---
Author Organization [employer] ([place], [place], [place], [place]) Address [address] [place] [address] Care Team Providers Care Mobility Architect Manager Name Role Phone Mumtaz Larson MD Primary Care Provider + [phone] Encounter Details Date Type Department Care Team (Late st Contact Info) Description 04/16/2022 Transcribed Document [facility] Family Medicine [address] [place] [address] ProviderGabriel MD [address] [place] [address] Social History Tobacco Use Types Packs/Day Years [...] Date Macario rded Speak language other than Cook Islander at home Not on file 10/29/2023 [...] Conversion Note - Historical Provider, - 04/16/2022 4:03 PM CDT UM Authorization Entered On: 04/16/2022 16:06 EDT Performed On: 04/16/2022 16:03 EDT by TEMITOPE ARMANDO RN Primary Insurance Authorization Authorization and Policy Numbers : Insurance 1 Health Plan: [facility] MED[employer] [employer] Policy Number: [id number] Authorization Number: Insurance Primary Name : [facility] [employer] - [id number] Authorization Status-Primary : Admit approved Reference Number-Primary : [id number] Number of Days Authorized-Primary : 5 Day(s) Authorized Service Begin Date-Primary : 04/06/2022 EDT Authorized Service End Date-Primary : 04/11/2022 EDT Authorization Comments-Primary : CLINCALS FAXED VIA [employer]( 04/14-04/16) Historical Authorization Comments-Primary : Comment 1: CLINICAL UPDATE FAXED VIA [employer] FOR 04/12-04/13 (Jenise Hoover Rn-Utilization Review 04/13/2022 16:00) Comment 2: Authorized per fax 04/08/22 @ 0856. Inpatient admission has been approved for this member. Next review due 04/12. -Amanda Kovacs (Kristen Rea, Lab Clerk 04/08/2022 12:37) Comment 3: CLINICALS FAXED VIA [employer] (04/06-04/07) (Temitope Armando RN 04/07/2022 17:24) Comment 4: Reference number obtained per fax 04/06/22 @ 1645; request for initial clinical. -Amanda Kovacs (Kristen Rea, Lab Clerk 04/07/2022 08:07) TEMITOPE ARMANDO RN - 04/16/2022 16:03 EDT Electronically signed by Lizabeth Polanco Conversion Paint Striping Machine Operator Cerner at 02/01/2023 6:58 PM CDT documented in this encounter Plan of Treatment Not on file documented as of this encounter Visit Diagnoses Not on filedocumented in this encounter Care Teams Mobility Architect Manager Relationship Specialty Start Date End Date Mumtaz Larson MD [address] [place] [phone] PCP - General Family Medicine 08/26/22 documented as of this encounter
--- OUTSIDE RECORDS SUMMARY | 2025-06-16 09:40 | XMS_ITS | Encounter Summary ---
Author Organization [employer] ([place], [place], [place], [place]) Address [address] [place] [address] Care Team Providers Care White Lead Grinder Name Role Phone Mumtaz Larson MD Primary Care Provider + [phone] Encounter Details Date Type Department Care Team (Late st Contact Info) Description 04/16/2022 Transcribed Document [facility] [place] [address] [place] [address] ProviderGabriel MD [address] [place] [address] Social History Tobacco Use Types Packs/Day Years [...] Date Macario rded Speak language other than Tunisian at home Not on file 10/29/2023 Want [...] Conversion Note - Historical Provider, - 04/16/2022 3:57 PM CDT Final Discharge Planning Entered On: 04/16/2022 15:59 EDT Performed On: 04/16/2022 15:57 EDT by GILBERT TODD RN-Shipping Room Supervisor Final Discharge Planning Discharge Arrangements : Patient Post-Acute Information Patient Name: TIEN GARCIA Gender: Male : [birth year] Age: 66 Years No Post-Acute Placement(s) Listed No Post-Acute Service(s) Listed No [place] Referral(s) Listed Transportation Needs : Family/Friend Follow Up Appointment Scheduled : Yes Is Patient High/Moderate Readmission Risk? : Yes Patient/Family Notified of Plan : Yes Support Person/Pt Rep Notified of Plan : Yes Is Patient Ready for Discharge? : Yes Physician Notified Patient is Ready for Discharge? : Yes Discharge To Care Management : Home/Residential/Nursing Home or Self Care -01 GILBERT TODD RN-Shipping Room Supervisor - 04/16/2022 15:57 EDT Final Narrative Note Final Narrative Note : Met with pt. Up in chair and states does not need any DME or HH for at home. Has a cane already and ambulated in hallway without issues. to transport home. Pt is on RA and tolerated activity without. No need for oxygen at this time. GILBERT TODD RN-Shipping Room Supervisor - 04/16/2022 15:57 EDT documented in this encounter Plan of Treatment Not on file documented as of this encounter Visit Diagnoses Not on filedocumented in this encounter Care Teams White Lead Grinder Relationship Specialty Start Date End Date Mumtaz Larson MD [address] [place] [facility] [address] [place] [id number] PCP - General Family Medicine 08/26/22 documented as of this encounter
--- OUTSIDE RECORDS SUMMARY | 2025-06-16 09:40 | XMS_ITS | Encounter Summary ---
Author Organization [employer] ([place], [place], [place], [place]) Address [address] [place] [address] Care Team Providers Care Casing Tier Name Role Phone Mumtaz Larson MD Primary Care Provider + [phone] Encounter Details Date Type Department Care Team (Late st Contact Info) Description 04/09/2022 Transcribed Document [facility] [place] [address] [place] [address] ProviderGabriel MD [address] [place] [address] Social History Tobacco Use Types Packs/Day Years [...] Date Macario rded Speak language other than Iranian at home Not on file 10/29/2023 Want [...] Conversion Note - Historical Provider, - 04/09/2022 11:49 AM CDT Admission History, Adult Entered On: 04/09/2022 11:50 EDT Performed On: 04/09/2022 11:49 EDT by Cristhian Wen, RN Advance Directive Patient has Advance Directive *Q : No, patient refuses Advance Directive information Cristhian Wen, RN - 04/09/2022 11:49 EDT Anesthesia/Transfusion History Family History of Anesthesia Reaction : No prior transfusion(s) Blood Transfusion Acceptable to Patient : Yes Transfusion History : Prior anesthesia without reaction Family History of Anesthesia Reaction : None Cristhian Wen RN - 04/09/2022 11:49 EDT Functional Assessment Living Situation : Home Patient Lives With : Spouse [place] Immediate/Within 3 Months : No Current Home Treatments : BiPAP, Blood glucose monitoring Professional Skilled Services : None Cristhian Wen RN - 04/09/2022 11:49 EDT General Info Preferred Name : King Arrived From : Acute Care Facility Mode of Arrival on Unit : Stretcher Legal Guardian : No Support Person/Patient Mineral Technologist : Yes Support Person/Pt Rep Name : Clare King - Support Person/Pt Rep Contact Information : [phone] Want Family/Rep/Phys Notified of Admit : No [...] Ident. Medical Decision Maker Class : spouse Primary Language : Iranian Communication Barrier : None Narcotics Detective Needed : No Cristhian Wen RN - 04/09/2022 11:49 EDT Fall Risk Scales ABCs Fall Injury Risk Identification : Coagulation ABC Fall Injury Risk : Moderate to high injury risk JAVIER Hx Falls Immediate/Within 3 Months : No Javier Secondary Diagnosis : No JAVIER Use of Ambulatory Aid : Bed rest/Nurse assist JAVIER IV Therapy or IV Access : Yes Javier Gait/Transferring : Normal, bedrest, immobile Javier Mental Status : Oriented to own ability Javier Fall Risk Score : 20 JAVIER Fall Scale Risk Level : 0-24 Low Risk [place] Fall Interventions : Adequate lighting Barriers to Learning : None evident Highest Level of Education : None Learning Style Preferences Family : None Learning Style Preferences Patient : None Cristhian Wen RN - 04/09/2022 11:49 EDT Health Histories Smoking Status : Former smoker, quit more than 30 days ago Smokeless Tobacco Status : Never Cristhian Wen RN - 04/09/2022 11:49 EDT Social History (As Of: 04/09/2022 11:50:49 EDT) Tobacco: Former smoker, quit more than 30 days ago Smoking Status. Never Smokeless Tobacco Status. None Smokeless Tobacco Use History. Last Used: quit in the 80s . (Last Updated: 09/27/2020 10:27:51 EST by Miguel Angel Calloway Rn) Alcohol: Alcohol Use History No. Use in Last 12 Months: No. (Last Updated: 09/27/2020 10:27:51 EST by Miguel Angel Calloway, Rn) Substance Abuse: Drug Use Hx: No. Use in Last 12 Months: No. (Last Updated: 09/27/2020 10:27:51 EST by Miguel Angel Calloway Rn) Height and Weight, Clinical Dosing Height Source : Stated Height Entry Format : Knott Height, Feet : 6 ft(Converted to: 183 cm, 72 Inch) Height, Inches : 1 Inch(Converted to: 0 ft 1 Inch, 2.54 cm) Clinical Height : 185.42 cm Weight Source : Bed scale Weight Entry Format : Knott Clinical Dosing Weight : 104.09 kg Weight, Pounds : 229 lb Body Surface Area (BSA) : 2.28 m2 Body Mass Index : 30.3 kg/m2 (HI) [place] Body Weight : 79 kg Crsithian Wne RN - 04/09/2022 11:49 EDT Infectious Disease History Does patient have symptoms of COVID-19? : No Tested for COVID19 in the past 14 days : Unable to obtain or unsure Does the Patient state known exposure to a COVID-19 positive case in the last 14 days? : No Patient Vaccinated for COVID-19 : Fully vaccinated Cristhian Wen RN - 04/09/2022 11:49 EDT Infectious Disease Risk Screening Grid Cough < 2 wks of unknown origin : NO Cough > 2 weeks : NO Blood in Sputum : NO Fever or self-reported Fever : NO Rash of unknown origin : NO Headache : NO Stiff neck : NO Night Sweats : NO Unexplained Weight Loss : NO Diarrhea (3 episode per day) : NO Cristhian Wen RN - 04/09/2022 11:49 EDT Physical contact outside [place] in the last 30 days : No Hospitalized in Foreign Country : No Infectious Disease History : None INF Disease TB Screening Calc : 0 INF Disease Recent Travel Calc : 0 Cristhian Wen RN - 04/09/2022 11:49 EDT Tetanus Immunization Status Previous Tetanus Immunizations : No qualifying data available. Cristhian Wen RN - 04/09/2022 11:49 EDT Influenza Vaccine Asmt, Adult Previous Vaccines from Immunization Schedule : No qualifying data available. Influenza Immunization, Current Season : Outside of influenza season Cristhian Wen RN - 04/09/2022 11:49 EDT Pneumococcal Vaccine Previous Vaccines from Immunization Schedule : No qualifying data available. Pneumonia Immunization Received : Unknown Pneumococcal Risk Assessment < Age 65 : N/A- Patient 65 years of age or older Pneumococcal Vaccine Contraindications : No contraindications to pneumococcal vaccine Transplant Workup/Recent Transplant : No Order for Pneumococcal Vaccine : Declined Vaccination Cristhian Wen RN - 04/09/2022 11:49 EDT Order Details Transport Mode Order Detail : Wheelchair Order Detail : N/A Lift/Transfer : Independent Central Line Order Detail : No Room Service : Appropriate Arterial Line : No Patient Needs Meds Crushed/Liquid : Yes Meds Administered Via Tube : Yes Cristhian Wen RN - 04/09/2022 11:49 EDT Nutrition History Adaptive Feeding Equipment : Diabetic Eating Poorly Due to Decreased Appetite : No Unplanned Weight Loss in Past 3-6 Months : No Malnutrition Screening Tool Total(mal) : 0 Malnutrition Screening Tool Risk Level : Patient not at risk Cristhian Wen RN - 04/09/2022 11:49 EDT [place] Suicide Severity Rating Scale (C-SSRS) CSSRS Past Month Wish to be : No CSSRS Past Month Suicidal Thoughts : No CSSRS Lifetime Suicide Behavior : No Suicide Severity Rating Score : 0 Suicide Severity Rating : No Additional Care Required at this time Cristhian Wen RN - 04/09/2022 11:49 EDT Psychosocial History Currently in Unsafe Situation : No Cristhian Wen RN - 04/09/2022 11:49 EDT Sleep Apnea Risk Assmt BiPAP/CPAP Ordered for Home Use : Yes Hx of Obstructive Sleep Apnea Diagnosis : Yes BiPAP/CPAP Used at Home : No Reason BiPAP/CPAP Not Used at Home : bipap was recalled not used in 1 year Age over 50 Years Old : Yes Gender Male : Yes Cristhian Wen RN - 04/09/2022 11:49 EDT Valuables and Belongings Valuables and Belongings : Clothing Clothing : Common streetwear Clothing Disposition : Bedside Cristhian Wen RN - 04/09/2022 11:49 EDT Electronically signed by Sherri [facility] Conversion Sports Betting Manager Cerner at 02/01/2023 7:01 PM CDT documented in this encounter Plan of Treatment Not on file documented as of this encounter Visit Diagnoses Not on filedocumented in this encounter Care Teams Casing Tier Relationship Specialty Start Date End Date Mumtaz Larson MD [address] [facility] [address] [place] [phone] PCP - General Family Medicine 08/26/22 documented as of this encounter
--- OUTSIDE RECORDS SUMMARY | 2025-06-16 09:41 | XMS_ITS | Encounter Summary ---
Author Organization [employer] ([place], [place], [place], [place]) Address [address] [place] [address] Care Team Providers Care Senior Mobile Web Developer Name Role Phone Mumtaz Larson MD Primary Care Provider + [phone] Encounter Details Date Type Department Care Team (Late st Contact Info) Description 06/04/2022 Transcribed Document [facility] [place] Family Medicine [address] [place] [address] ProviderGabriel MD [address] [place] [address] Social History Tobacco Use Types Packs/Day Years [...] Date Macario rded Speak language other than Liberian at home Not on file 10/29/2023 Want [...] Cerner Conversion Note - Historical Provider, - 06/04/2022 8:46 AM CDT Patient: TIEN GARCIA Age: 66 Years Sex: Male : 1955 Patient continues to feel less pain and better range of motion in right elbow. Patient states he did not tolerate the attempted MRI. Staff had considered sedation. Visual inspection shows unchanged diameter but decreased depth of swelling. Excellent range of motion with no evidence of pain during exam. Based on subjective and objective improvements the suspicion for osteomyelitis is decreased notably. Do not feel strongly about proceeding with MRI, further reinforced by unnecessary sedation. Patient should follow-up with Dr. Rosas on outpatient basis should symptoms return or worsen. Orthopedics will follow at a distance Electronically signed by Sherri [facility] Conversion Stippler Zahraner at 02/01/2023 6:57 PM CDT documented in this encounter Plan of Treatment Not on file documented as of this encounter Visit Diagnoses Not on filedocumented in this encounter Care Teams Senior Mobile Web Developer Relationship Specialty Start Date End Date Mumtaz Larson MD [address] [facility] [address] [place] [id number] PCP - General Family Medicine 08/26/22 documented as of this encounter
--- OUTSIDE RECORDS SUMMARY | 2025-06-16 09:41 | XMS_ITS | Encounter Summary ---
Author Organization [employer] ([place], [place], [place], [place]) Address [address] [place] [address] Care Team Providers Care Temporary Office Assistant Name Role Phone Mumtaz Larson MD Primary Care Provider + [phone] Encounter Details Date Type Department Care Team (Late st Contact Info) Description 04/10/2022 Transcribed Document [facility] [place] [address] [place] [address] ProviderGabriel MD [address] [place] [address] Social History Tobacco Use Types Packs/Day Years [...] Date Macario rded Speak language other than Algerian at home Not on file 10/29/2023 Want [...] Cerner Conversion Note - Historical Provider, - 04/10/2022 9:54 AM CDT Patient: TIEN GARCIA Age: 66 years Sex: Male : 1955 Associated Diagnoses: None Author: SRAVAN HIDALGO MD-TEETEE Subjective Pt appears more calm today; he continues to be bipap dependent, breathing is not improved Objective VS/Measurements Vital Signs/Vital Measures 04/10/2022 9:03 EDT Heart Rate Monitored 61 bpm 04/10/2022 8:00 EDT Systolic Blood Pressure 157 mmHg HI Diastolic Blood Pressure 73 mmHg Clinical Temperature, F 98.4 Deg F General: Awake and alert, in no distress; speech is dysarthric but a bit stronger today. Eye: Pupils are equal, round and reactive to light, Extraocular movements are intact, R ptosis noted. Respiratory: on bipap. Cardiovascular: Normal rate, Regular rhythm. Neurologic: Facial weakness noted with right ptosis; CN otherwise intact. Motor strength is 5/5 throughout, sensation intact, no ataxia. Psychiatric: Cooperative. Results Review Labs reviewed CT chest- no evidence for thymoma or malignancy; marked bibasilar opacities Impression and Plan 66yo M admitted with new onset dysphagia, dysarthria as well as shortness of breath and ptosis; symptoms worsened after admission and he is [...] gravis; other possibilities would include paraneoplastic disorder, COMMUNITY SPECIALIST infection including tick or mosquito-borne illness, COMMUNITY SPECIALIST malignancy, inflammatory disorder such as sarcoid, acute [...] meds. Neurology will continue to follow closely. documented in this encounter Plan of Treatment Not on file documented as of this encounter Visit Diagnoses Not on filedocumented in this encounter Care Teams Temporary Office Assistant Relationship Specialty Start Date End Date Mumtaz Larson MD [address] [place] [facility] [address] [place] [id number] PCP - General Family Medicine 08/26/22 documented as of this encounter
--- OUTSIDE RECORDS SUMMARY | 2025-06-16 09:41 | XMS_ITS | Encounter Summary ---
Author Organization [employer] ([place], [place], [place], [place]) Address [address] [place] [address] Care Team Providers Care Stretching Press Operator Name Role Phone Mumtaz Larson MD Primary Care Provider + [phone] Encounter Details Date Type Department Care Team (Late st Contact Info) Description 04/10/2022 Transcribed Document [facility] [place] [address] [place] [address] ProviderGabriel MD [address] [place] [address] Social History Tobacco Use Types Packs/Day Years [...] Date Macario rded Speak language other than Swazi at home Not on file 10/29/2023 Want [...] Conversion Note - Historical Provider, - 04/10/2022 7:58 AM CDT Patient: TIEN GARCIA Age: 66 years Sex: Male : 1955 Associated Diagnoses: None Author: BLAINE DRAPER MD Subjective Seen and examined this morning on BiPAP, didn't have sleep for the last few nights pyridostigmine and IV steroid no Family at bedside labs noted CT chest noted Review of Systems Blurry vision unable to raise his right eye lid Difficulty swallowing Shortness of breath No fever no chills Health Status Allergies: Allergic Reactions (Selected) No Known Medication Allergies, Allergies (1) Active Reaction No Known Medication Allergies None Documented Current medications: (Selected) Inpatient Medications Ordered Ambien: 5 mg, Oral, At Bedtime, PRN: Insomnia Benadryl: 25 mg, IV Push, Daily Dextrose 50% injection: 12.5 Gram, IV Push, [...] Other (See Comment) calcium gluconate: 1 Gram, 10 mL, 60 mL/Hr, IV Piggyback, 1-Time dexmedeTOMIDine injection 400 mcg + NaCl 0.9% [...] IV Push, Q1H, PRN: Other (See Comment) potassium phosphate + Sodium Chloride 0.9% intravenous solution 250 mL: 20 mMole, 6.67 mL, 42.78 mL/Hr, IV Piggyback, Q6H pramipexole: 0.25 mg, Oral, At Bedtime Documented [...] Cap, Oral, Daily, 0 Refill(s) Flonase: 1 Tolstoy, Nostrils Both, Daily, 0 Refill(s) MetFORMIN (Eqv-Glucophage [...] Tab, Oral, At Bedtime, 0 Refill(s), Medications (36) Active Scheduled: (16) #NaCl 0.9% *FLUSH* inj 10 mL 10 mL, IV Push, Q12H #NaCl 0.9% *FLUSH* inj 10 mL 10 mL, IntraCATHeter, Q12H acetaminophen 325 mg tab 650 mg 2 Tab, Oral, Daily calcium gluconate 1 Gram 10 mL, IV Piggyback, 1-Time diphenhydrAMINE 50 mg/1 mL inj 25 mg [...] 100 mL 3.375 Gram, IV Piggyback, Q6HInt potassium phosphate + NaCl 0.9% 250 mL 20 mMole 6.67 mL, IV Piggyback, Q6H pramipexole 0.25 mg tab 0.25 mg 1 Tab, Oral, At Bedtime pyridostigmine 60 mg/5 mL liq 60 mg 5 mL, Oral, TID QUEtiapine 200 mg tab 400 mg 2 Tab, Oral, BID tamsulosin CR 0.4 mg cap 0.4 mg 1 Cap, Oral, Daily Continuous: (2) dexmedeTOMIDine 400 mcg + NaCl [...] list: Medical Allergic rhinitis / SNOMED CT 307917122 / Confirmed Hard of hearing / SNOMED CT 423802051 / Confirmed High blood pressure / SNOMED CT 68146675 / Confirmed Bronchitis / SNOMED CT 99624791 / Confirmed GERD - Gastro-esophageal reflux disease / SNOMED CT 6554092427 / Confirmed Microscopic colitis / SNOMED CT 826777612 / Confirmed Arthritis / SNOMED CT 0393428 / Confirmed Diabetes mellitus type II / SNOMED CT 27670076 / Confirmed Prostate cancer / SNOMED CT 7048019438 / Confirmed History of obstructive sleep apnea / IMO 68939919 / Confirmed, Active Problems (10) Allergic rhinitis Arthritis Bronchitis Diabetes mellitus type II GERD - Gastro-esophageal reflux disease Hard of hearing High blood pressure History of obstructive sleep apnea Microscopic colitis Prostate cancer Objective VS/Measurements Vitals Signs (last 24 hrs) Last Charted Minimum Maximum Temp 97.1 (APR 10 04:00) 97 (APR 09 20:00) 97.8 (APR 09 08:00) Mon HR 79 (APR 10 07:00) 47 (APR 09 19:00) 86 (APR 09 10:00) Resp Rate H 39 (APR 10 07:00) 16 (APR 09 12:29) H 41 (APR 09 18:00) SBP H 160 (APR 10 07:00) 108 (APR 09 22:00) H 160 (APR 10 07:00) DBP 80 (APR 10 07:00) 64 (APR 09 16:00) 87 (APR 10 06:07) MAP 114 (APR 10 07:00) 86 (APR 10 00:00) 114 (APR 10 07:00) SpO2 97 (APR 10 07:00) L 93 (APR 09 22:00) 98 (APR 09 08:45) General: Alert and oriented, No acute distress. [...] mood & affect. Review / Management APR 10 03:45 H 147 H 115 H 25 / H 152 L 3.0 29 L 0.60 \ APR 10 03:45 \ L 12.6 / 7.2 235 / L 38.5 \ Radiology Results (Last 48 hours) [id number] -- 04/06/2022 15:42 CR Abdomen 1 Vw Portable (04/08/2022 09:46) [...] minutes.FLUORO Films: 1.HISTORY: Malnutrition.ATTENDING RADIOLOGIST: Dr. Hernández.PHYSICIAN VENEER SUPERVISOR: Mayelin Valdez PA-C.FINDINGS: The patient's existing feeding [...] review: Labs (Last four charted values) WBC 7.2 (VERO 24) 8.8 (VERO 23) 7.0 (VERO 22) H 11.3 (VERO 21) HB L 12.6 (VERO 24) 14.8 (VERO 23) 17.1 (VERO 22) 16.7 (VERO 21) HCT L 38.5 (VERO 24) 43.9 (VERO 23) 50.8 (VERO 22) 50.7 (VERO 21) Plt 235 (VERO 24) 326 (VERO 23) 356 (VERO 22) 362 (VERO 21) Na H 147 (VERO 24) 144 (VERO 23) 138 (VERO 22) 138 (VERO 21) K L 3.0 (VERO 24) 3.6 (VERO 23) L 3.4 (VERO 22) 3.6 (VERO 21) Cl H 115 (VERO 24) 109 (VERO 23) 107 (VERO 22) 103 (VERO 21) CO2 29 (VERO 24) 31 (VERO 23) 22 (VERO 22) 25 (VERO 21) BUN H 25 (VERO 24) 22 (VERO 23) 17 (VERO 22) 15 (VERO 21) Cr L 0.60 (VERO 24) 0.80 (VERO 23) 0.70 (VERO 22) 0.70 (VERO 21) Glu R H 152 (VERO 24) H 167 (VERO 23) H 167 (VERO 22) 105 (VERO 21) Ca L 8.2 (VERO 24) 9.0 (VERO 23) 9.1 (VERO 22) 9.0 (VERO 21) AST H 129 (VERO 24) H 39 (VERO 22) 26 (VERO 20) ALT H 179 (VERO 24) 49 (VERO 22) 31 (VERO 20) ALK P 53 (VERO 24) 73 (VERO 22) 64 (VERO 20) T Bili 0.8 (VERO 24) 1.1 (VERO 22) 0.7 (VERO 20) PTN 6.4 (VERO 24) 7.7 (VERO 22) 8.0 (VERO 20) ALB L 2.7 (VERO 24) 3.7 (VERO 22) 4.4 (VERO 20) . Impression and Plan # Myasthenia Gravis crisis Neuro check Speech evaluation, S/P Corpak labs noted Pyridostigmine and high IV steroid monitor symptoms neurology following Ach receptor binding Ab ordered Bordetella, HIN not reactive Monitor respiratory status CT chest B/L consolidation #Acute hypoxic respiratory failure Aspiration pneumonia likely secondary from neuro musculare involvement from myasthenia Respiratory PCR negative, CXR noted CT chest 04/09 B/L consolidation Breathing treatment PRN BiPAP for increased work of breathing At risk of worsening respiratory status and intubation consulted pulmonary #Dysphagia Secondary to myasthenia gravis versus stroke MRI brain when he can lay flat Keep n.p.o. Speech therapy Corpak placement, started on feeding tube #Hypernatremia Add free water #Aspiration pneumonia Sputum culture IV Zosyn Breathing treatment CT chest noted #Hypokalemia and hypophosphatemia Replace with IV #H/O Prostate cancer Resume Flomax #Elevated LFT D/C Tylenol Monitor #Hypothyroidism Restart levothyroxine Check TSH WNL #Diabetes mellitus Sliding-scale insulin Monitor blood sugar #HTN Use IV hydralazine PRN #Restless leg syndrome Resume home medications Discussed with patient, Discussed with MANAGER RADIATION Labs, imaging chart from outside hospital reviewed [...] on filedocumented in this encounter Care Teams Stretching Press Operator Relationship Specialty Start Date End Date Mumtaz Larson MD [address] [place] [facility] [address] [place] [phone] PCP - General Family Medicine 08/26/22 documented as of this encounter
--- OUTSIDE RECORDS SUMMARY | 2025-06-16 09:41 | XMS_ITS | Encounter Summary ---
Author Organization [employer] ([place], [place], [place], [place]) Address [address] [place] [address] Care Team Providers Care Special Order Jeweler Name Role Phone Mumtaz Larson MD Primary Care Provider + [phone] Encounter Details Date Type Department Care Team (Late st Contact Info) Description 04/14/2022 Transcribed Document [facility] – [place] Family Medicine [address] [place] [address] ProviderGabriel MD [address] [place] [address] Social History Tobacco Use Types Packs/Day Years [...] Date Macario rded Speak language other than Guinean at home Not on file 10/29/2023 [...] Cerner Conversion Note - Historical Provider, - 04/14/2022 3:00 AM CDT Nutrition Assessment Entered On: 04/14/2022 11:44 EDT Performed On: 04/14/2022 12:12 EDT by Ivory Brown, RD, LD Nutrition Assessment Current Nutrition Regimen Comment : 04/14: High EN f/up. Pt discussed during MDR. Pt off bipap and tolerating 4L NC. GEOGRAPHY TEACHER eval today - started pureed, NTL diet. EN currently running @40ml/hr, increasing to 50ml/hr today and AAT to goal. Will monitor for diet advancement per GEOGRAPHY TEACHER eval and adjust TF accordingly. Discussed no BM x7 days, adding to current bowel regimen. 04/10: High f/u. Pt was transferred to the unit on 04/08 d/t increased work of breathing and fatigue. He is currently on continuous bipap. GEOGRAPHY TEACHER following and pt remains NPO at this time. He had a corpak placed, which terminates in the stomach. EN is running @ 20ml/hr. Discussed pt with pulmonary and he is a high risk for intubation. Dx: possible myasthenia gravis, dysphagia PMH: bronchitis, DM, GERD, ATMAUTLUAK, HTN, prostate cancer Labs: K 3.3, Glu 132, BUN 29, AST 127, ALT 573, FSBG 126/148/146, PLT 143 Meds: dulcolax, diuretic, docusate, fenofibrate, Pepcid, heparin, SSI, lactulose, synthroid, steroid, senna, prn Zofran, prn K bicarb GI: LBM 04/07, +BS, +corpak (mid-stomach) Skin: no breakdown noted Diet: NPO EN: Glucerna 1.5 @40 ml/hr (goal @ 65 ml/hr) Ht: 6'1 Wt: 235#/106.8kg (6/21)229#/104.1kg (04/09) BMI: 31.1 IBW: 184#, 128% Est nutrient needs: 9910-8780 kcals (MSJ *1.2AF), 85-105g pro (0.8-1.0 g/kg) Vickie James Dietitian - 04/14/2022 13:47 EDT Nutrition Assessment Reason : Follow Up Ivory Brown RD, LD - 04/14/2022 11:44 EDT Nutrition Diagnoses Oral or Nutrition Support Intake : Inadequate oral intake Oral or Nutr Support Intake Related To : dysphagia, respiratory distress Ivory Brown RD, LD - 04/14/2022 12:11 EDT Oral or Nutr Support Intake Evidenced by : need for EN, started on pureed, NTL Vickie James Dietitian - 04/14/2022 13:47 EDT Oral or Nutrition Support Intake Status : Active Ivory Brown RD, LD - 04/14/2022 12:11 EDT Nutrition Interventions Meals and Snacks : Pureed diet, Liquid consistency-nectar thick liquids Vickie James Dietitian - 04/14/2022 13:47 EDT Enteral/Parenteral Nutrition : Modify rate of enteral nutrition Ivory Brown RD, LD - 04/14/2022 12:11 EDT Monitoring/Evaluation Food Intake : Amount of food Vickie James Dietitian - 04/14/2022 13:47 EDT Energy Intake : Total energy intake Enteral Nutrition Intake : Formula/Solution, Tube Feeding Tolerance Protein Intake : Total protein Weight Status : Weight Maintanence Gastrointestinal Function : Bowel Function Glucose/Endocrine Profile : Glucose, fasting, Glucose, casual Ivory Brown RD, LD - 04/14/2022 12:11 EDT Nutrition Recommendations Nutrition Care Level : High Dietitian Recommendations : 1. Increase Glucerna 1.5 to 50ml/hr, AAT to goal rate of 65ml/hr (2145 kcals, 118g pro). FW per MD. Will adjust TF according to PO intake Goal: meet est needs 2. Initiate pureed, NTL diet - may need [address] to assess for supplements. Goal: safe PO intake 3. Monitor weight 1-2x weekly Goal: prevent unintentional wt changes 4. Optimize glucose level and adjust insulin PRN Goal: 110-180 5. Monitor bowel fxn, LBM 04/07. On bowel regimen, consider more aggressive measures goal: +BM 6. Monitor elytes and replace prn goal: wnls Nutrition Risk: High Vickie James Dietitian - 04/14/2022 13:47 EDT Electronically signed by [facility], [facility] Conversion Portal Developer Cerner at 02/01/2023 7:00 PM CDT documented in this encounter Plan of Treatment Not on file documented as of this encounter Visit Diagnoses Not on filedocumented in this encounter Care Teams Special Order Jeweler Relationship Specialty Start Date End Date Mumtaz Larson MD [address] [place] [facility] [address] [place] [phone] PCP - General Family Medicine 08/26/22 documented as of this encounter
--- OUTSIDE RECORDS SUMMARY | 2025-06-16 09:41 | XMS_ITS | Encounter Summary ---
Author Organization [employer] ([place], [place], [place], [place]) Address [address] [place] [address] Care Team Providers Care Supervisor Cloth Winding Name Role Phone Mumtaz Larson MD Primary Care Provider + [phone] Encounter Details Date Type Department Care Team (Late st Contact Info) Description 04/22/2022 Transcribed Document [facility] [place] [address] [place] [address] ProviderGabriel MD [address] [place] [address] Social History Tobacco Use Types Packs/Day Years [...] Date Macario rded Speak language other than Malawian at home Not on file 10/29/2023 Want [...] Cerner Conversion Note - Historical Provider, - 04/22/2022 1:22 PM CDT UM Authorization Entered On: 04/22/2022 13:23 EDT Performed On: 04/22/2022 13:22 EDT by Kristen Rea, Marketing Teacher Primary Insurance Authorization Authorization and Policy Numbers : Insurance 1 Health Plan: [facility] MEDICARE ADVANTAGE Policy Number: [id number] Authorization Number: Insurance Primary Name : [employer] MEDICARE ADVANTAGE - [id number] Authorization Status-Primary : Approved Auth/Referral Contact Name-Primary : [place] Reference Number-Primary : [id number] Authorization Number-Primary : [id number] Number of Days Authorized-Primary : 5 Day(s) Authorized Service Begin Date-Primary : 04/06/2022 EDT Authorized Service End Date-Primary : 04/11/2022 EDT Authorization Comments-Primary : Authorized per website. Covered/Approved all days. Case status closed. Historical Authorization Comments-Primary : Comment 1: Discharge date and summary faxed. (Kristen Rea, Marketing Teacher 04/17/2022 08:39) Comment 2: CLINCALS FAXED VIA [employer]( 04/14-04/16) (Temitope Laurent, KARLA 04/16/2022 16:03) Comment 3: CLINICAL UPDATE FAXED VIA [employer] FOR 04/12-04/13 (Jenise Hoover Rn-Utilization Review 04/13/2022 16:00) Comment 4: Authorized per fax 04/08/22 @ 0856. Inpatient admission has been approved for this member. Next review due 04/12. -Amanda Chapman. (Kristen Rea, Marketing Teacher 04/08/2022 12:37) Comment 5: CLINICALS FAXED VIA [employer] (04/06-04/07) (Temitope Laurent, RN 04/07/2022 17:24) Comment 6: Reference number obtained per fax 04/06/22 @ [phone]; request for initial clinical. -Amanda Chapman. (Kristen Rea, Marketing Teacher 04/07/2022 08:07) Kristen Rea, Marketing Teacher - 04/22/2022 13:22 EDT Electronically signed by [facility], [facility] Conversion Trial Lawyer Cerner at 02/01/2023 7:01 PM CDT documented in this encounter Plan of Treatment Not on file documented as of this encounter Visit Diagnoses Not on filedocumented in this encounter Care Teams Supervisor Cloth Winding Relationship Specialty Start Date End Date Mumtaz Larson MD [address] [facility] [address] [place] [phone] PCP - General Family Medicine 08/26/22 documented as of this encounter
--- OUTSIDE RECORDS SUMMARY | 2025-06-16 09:41 | XMS_ITS | Encounter Summary ---
Author Organization [employer] ([place], [place], [place], [place]) Address [address] [place] [address] Care Team Providers Care Environmental Remediation Consultant Name Role Phone Mumtaz Larson MD Primary Care Provider + [phone] Encounter Details Date Type Department Care Team (Late st Contact Info) Description 04/07/2022 Transcribed Document [facility] [place] [address] [place] [address] ProviderGabriel MD [address] [place] [address] Social History Tobacco Use Types Packs/Day Years [...] Conversion Note - Historical Provider, - 04/07/2022 5:24 PM CDT UM Authorization Entered On: 04/07/2022 17:26 EDT Performed On: 04/07/2022 17:24 EDT by ROSEMARIE ARMANDO, KARLA Primary Insurance Authorization Authorization and Policy Numbers : Insurance 1 Health Plan: [facility] MEDICARE ADVANTAGE Policy Number: [id number] Authorization Number: Insurance Primary Name : [employer] MEDICARE ADVANTAGE - [id number] Reference Number-Primary : [id number] Authorized Service Begin Date-Primary : 04/06/2022 EDT Authorization Comments-Primary : CLINICALS FAXED VIA [employer] (04/06-04/07) Historical Authorization Comments-Primary : Comment 1: Reference number obtained per fax 04/06/22 @ 1649; request for initial clinical. -Amanda Chapman. (Kristen Rea, Tobacco Stripper 04/07/2022 08:07) ROSEMARIE ARMANDO, KARLA - 04/07/2022 17:24 EDT Electronically signed by [facility] Conversion Psych Nurse Cerner at 02/01/2023 7:11 PM CDT documented in this encounter Plan of Treatment Not on file documented as of this encounter Visit Diagnoses Not on filedocumented in this encounter Care Teams Environmental Remediation Consultant Relationship Specialty Start Date End Date Mumtaz Larson MD [address] [place] [facility] [address] [place] [phone] PCP - General Family Medicine 08/26/22 documented as of this encounter
--- OUTSIDE RECORDS SUMMARY | 2025-06-16 09:41 | XMS_ITS | Encounter Summary ---
Author Organization [employer] ([place], [place], [place], [place]) Address [address] [place] [address] Care Team Providers Care Gut Dropper Name Role Phone Mumtaz Larson MD Primary Care Provider + [phone] Encounter Details Date Type Department Care Team (Late st Contact Info) Description 10/02/2020 Transcribed Document [facility] Neurology - [facility] [address] [facility] [address] [place] [id number] Jass Ordonez MD [address] [place] [address] [address] [place] [address] Social History Tobacco Use Types Packs/Day Years Used Date Smoking Tobacco: Never Assessed Sex and Gender Information Value Date Recorded Sex Assigned at Male 05/13/2022 12:59 PM CDT Legal Sex Male 1:44 PM CDT Gender Identity Male 05/13/2022 12:59 PM CDT Sexual Orientation Not on file documented as of this encounter Miscellaneous Notes * Cerner Conversion Note - Jass Ordonez MD - 10/02/2020 2:04 PM EST Patient: TIEN GARCIA Age: 64 years Sex: Male : 1955 Associated Diagnoses: None Author: BRIT HODGES APRN Chief Complaint back, LLE pain Review of Systems ROS reviewed as documented in chart no change since last seen by surgeon Health Status Allergies: Allergic Reactions (Selected) No Known Medication Allergies, Allergies (1) Active Reaction No Known Medication Allergies None Documented Current medications: (Selected) Inpatient Medications Ordered Chloraseptic 6 mg-10 mg mucous membrane lozenge: 1 Lozenge, Oral, Q2H, PRN: Sore Throat Colace: 100 mg, Oral, Daily Dulcolax Laxative: 10 mg, Rectal, BID, PRN: Constipation Milk of Magnesia 8% oral suspension: 30 mL, Oral, TID, PRN: Constipation MiraLax: 17 Gram, Oral, Daily Phenergan: 12.5 mg, IV Push, Q6H, PRN: Nausea Zofran: 4 mg, IV Push, Q4H, PRN: Nausea cloNIDine: 0.2 mg, Oral, Q4H, PRN: Hypertension hydrALAZINE: 10 mg, IV Push, Q6H, PRN: Hypertension insulin lispro sliding scale: Scale D:, SubCutaneous, AC and at Bedtime simethicone: 80 mg, Oral, Q6H, PRN: Gas triamcinolone acetonide 40 mg/mL injectable suspension 40 mg + ketorolac 15 mg + bupivacaine 0.25%...: 40 mg, 1 mL, 31.5 mL/Hr, Miscellaneous, 1-Time Documented Medications Documented Benadryl 25 mg oral capsule: 1 Cap, Oral, TID, PRN: as needed for allergies, 0 Refill(s) DULoxetine: 120 mg, Oral, Daily, 0 Refill(s) Entocort EC: 3 mg, Oral, Daily, 0 Refill(s) FiberCon: 1 Tab, Oral, Daily, 0 Refill(s) Flomax 0.4 mg oral capsule: 1 Cap, Oral, Daily, 0 Refill(s) Flonase: 1 Lincoln, Nostrils Both, Daily, 0 Refill(s) Melatonin 5 mg oral tablet: 1 Tab, Oral, Once a day (at bedtime), PRN: as needed for insomnia, 60 Tab, 0 Refill(s) SEROquel 400 mg oral tablet: 1 Tab, Oral, BID, 0 Refill(s) TriCor 145 mg oral tablet: 1 Tab, Oral, Daily, 0 Refill(s) allopurinol 300 mg oral tablet: 1 Tab, Oral, Daily, 0 Refill(s) atenolol-chlorthalidone 100 mg-25 mg oral tablet: 1 Tab, Oral, Daily, 0 Refill(s) cyclobenzaprine 5 mg oral tablet: 1 Tab, Oral, TID, 0 Refill(s) levothyroxine 50 mcg (0.05 mg) oral tablet: 1 Tab, Oral, Daily, 60 Tab, 0 Refill(s) metFORMIN 500 mg oral tablet: 1 Tab, Oral, BID, 0 Refill(s) multivitamin: 1 Tab, Oral, Daily, 0 Refill(s) omeprazole: 20 mg, Oral, Daily, 0 Refill(s) potassium chloride 20 mEq oral tablet, extended release: 1 Tab, Oral, BID, 0 Refill(s) pramipexole 0.25 mg oral tablet: 1 Tab, Oral, Daily, 0 Refill(s), Home Medications (18) Active allopurinol 300 mg [...] = 1 Cap, Oral, Daily Flonase 1 Lincoln, Nostrils Both, Daily levothyroxine 50 mcg (0.05 [...] 145 mg = 1 Tab, Oral, Daily , Medications (12) Active Scheduled: (4) docusate sodium 100 mg cap 100 mg 1 Cap, Oral, Daily insulin lispro 1 unit/0.01 mL inj Scale D:, SubCutaneous, AC and at Bedtime polyethylene glycol 3350 pwd 17 g pkt 17 Gram 1 Packet, Oral, Daily triamcinolone acet 40 mg + ketorolac 15 mg + bupivacaine 0.25% 30 mL + syringe 1 Each 40 mg 1 mL, Miscellaneous, 1-Time Continuous: (0) PRN: (8) benzocaine-menthol 6 mg reina 1 Lozenge, Oral, Q2H bisacodyl 10 mg supp 10 mg 1 Supp, Rectal, BID cloNIDine 0.2 mg tab 0.2 mg 1 Tab, Oral, Q4H hydrALAZINE 20 mg/1 mL inj 10 mg 0.5 mL, IV Push, Q6H magnesium hydroxide 8% liq 30 mL 30 mL, Oral, TID ondansetron 4 mg/2 mL inj 4 mg 2 mL, IV Push, Q4H promethazine 25 mg/1 mL inj 12.5 mg 0.5 mL, IV Push, Q6H simethicone 80 mg chew tab 80 mg 1 Tab, Oral, Q6H Problem list: All Problems Microscopic colitis / SNOMED CT 456051504 / Confirmed Prostate cancer / SNOMED CT 6633009709 / Confirmed History of obstructive sleep apnea / IMO 38245598 / Confirmed High blood pressure / SNOMED CT 89452439 / Confirmed Hard of hearing / SNOMED CT 170276085 / Confirmed GERD - Gastro-esophageal reflux disease / SNOMED CT 7318947624 / Confirmed Diabetes mellitus type II / SNOMED CT 56152717 / Confirmed Bronchitis / SNOMED CT 71603180 / Confirmed Arthritis / SNOMED CT 7700452 / Confirmed Allergic rhinitis / SNOMED CT 835712375 / Confirmed, Active Problems (10) Allergic rhinitis Arthritis Bronchitis Diabetes mellitus type II GERD - Gastro-esophageal reflux disease Hard of hearing High blood pressure History of obstructive sleep apnea Microscopic colitis Prostate cancer back pain with LLE radiculopathy Histories Past Medical History: No active or resolved past medical history items have been selected or recorded. Family History: No family history items have been selected or recorded. Procedure history: knee scope. hand surgery. umbilical hernia repair. Appendectomy ([id number]). Brachytherapy ([id number]). Comments: 09/27/2020 10:27 EST - Brodie, Miguel Angel, Rn for prostate cancer Social History Social & Psychosocial Habits Alcohol 09/27/2020 Alcohol Use History, Social Habits No Alcohol Use in Last Twelve Months No Substance Abuse 09/27/2020 Recreational Drug Use History No Recreational Drug Use Last 12 Months No Tobacco 09/27/2020 Smoking Status Former smoker, quit more Smokeless Tobacco Status Never Smokeless Tobacco Use History None Month Tobacco Last Used quit in the 80s . Physical Examination VS/Measurements No qualifying data available General: Alert and oriented, No acute distress, obese. Eye: Pupils are equal, round and reactive to light, Extraocular movements are intact, glasses. HENT: Normocephalic, WAINWRIGHT, suleiman aids. Neck: Supple, Non-tender. Respiratory: Lungs are clear to auscultation, Respirations are non-labored. Cardiovascular: Normal rate, Regular rhythm, No murmur, No gallop, No edema. Gastrointestinal: Soft, Non-tender. Genitourinary: No costovertebral angle tenderness. Lymphatics: No lymphadenopathy neck, axilla, groin. Musculoskeletal: Normal strength, painful ROM back, uses cane. Integumentary: Warm, Dry, abrasion LLE with bandaid POA. Neurologic: Alert, Oriented. Psychiatric: Cooperative, Appropriate mood & affect. Review / Management Results review: Labs (Last four charted values) WBC 7.8 (SEP 30) HB 16.3 (SEP 30) HCT 48.0 (SEP 30) Plt 297 (SEP 30) Na 138 (SEP 30) K 3.6 (SEP 30) Cl L 101 (SEP 30) CO2 31 (SEP 30) BUN 22 (SEP 30) Cr 1.30 (SEP 30) Glu R H 116 (SEP 30) Ca 9.8 (SEP 30) . Impression and Plan Condition: Stable. documented in this encounter Plan of Treatment Not on file documented as of this encounter Visit Diagnoses Not on filedocumented in this encounter Care Teams Gut Dropper Relationship Specialty Start Date End Date Mumtaz Larson MD [address] [facility] [address] [place] [phone] PCP - General Family Medicine 08/26/22 documented as of this encounter
--- OUTSIDE RECORDS SUMMARY | 2025-06-16 09:41 | XMS_ITS | Encounter Summary ---
Author Organization [employer] ([place], [place], [place], [place]) Address [address] [place] [address] Care Team Providers Care Software Security Consultant Name Role Phone Mumtaz Larson MD Primary Care Provider + [phone] Encounter Details Date Type Department Care Team (Late st Contact Info) Description 06/04/2022 Transcribed Document [facility] Family Medicine [address] [place] [address] ProviderGabriel MD [address] [place] [address] Social History Tobacco Use Types Packs/Day Years [...] Date Macario rded Speak language other than Pakistani at home Not on file 10/29/2023 Want [...] Conversion Note - Historical Provider, - 06/04/2022 3:48 PM CDT Discharge Summary, WINERY WORKER Entered On: 06/04/2022 15:49 EDT Performed On: 06/04/2022 15:48 EDT by ROMANA OSULLIVAN, WINERY WORKER Discharge Notation. WINERY WORKER Discharge Diet : Tube feeding, PEG/PEJ Discharge Liquids : Water/Ice after oral care Discharge Summary Comment, WINERY WORKER : Pt has completed IVIG and is being d/c home today. He is s/p PEG placement this hospitalization. Dysphagia patterns persist and pt is reluctant to attempt PO at bedside today. Would be cautiously optimistic for quick pharyngeal recovery after IVIG. Discussed signs of distress with oral intake and TF via PEG. Pt and spouse verbalized understanding and appreciation. Nothing further for ST to offer and will sign off. Pt may benefit from an OP MBS prior to initiating PO diet if/when resonance returns to baseline and pt has better secretion management. ROMANA OSULLIVAN SLP - 06/04/2022 15:48 EDT Swallow Plan/Goals Swallow LTG Grid WINERY WORKER Senior Care Goal #1 WINERY WORKER Residue Furnace Operator Goal #2 Swallow LTG : Improve swallowing function for oral intake Other: Pt goal: I want to get better Status : Discontinue ROMANA OSULLIVAN SLP - 06/04/2022 15:48 EDT ROMANA OSULLIVAN SLP - 06/04/2022 15:48 EDT Swallow Goals Grid Goal #1 Swallow STG : Other: Re-assess for PO diet v. need for instrumental pending timing of IVIG Related To : Return to oral intake Date to Meet : 06/05/2022 EDT Status : Discontinue ROMANA OSULLIVAN SLP - 06/04/2022 15:48 EDT documented in this encounter Plan of Treatment Not on file documented as of this encounter Visit Diagnoses Not on filedocumented in this encounter Care Teams Software Security Consultant Relationship Specialty Start Date End Date Mumtaz Larson MD [address] [facility] [address] [place] [phone] PCP - General Family Medicine 08/26/22 documented as of this encounter
--- OUTSIDE RECORDS SUMMARY | 2025-06-16 09:41 | XMS_ITS | Encounter Summary ---
Author Organization [employer] ([place], [place], [place], [place]) Address [address] [place] [address] Care Team Providers Care Packing And Stamping Machine Operator Name Role Phone Mumtaz Larson MD Primary Care Provider + [phone] Encounter Details Date Type Department Care Team (Late st Contact Info) Description 06/04/2022 Transcribed Document [facility] [address] [place] [address] ProviderGabriel MD [address] [place] [address] Social History Tobacco Use Types Packs/Day Years [...] Date Macario rded Speak language other than [place] Islander at home Not on file 10/29/2023 [...] Conversion Note - Historical Provider, - 06/04/2022 10:13 AM CDT Initial Discharge Planning Entered On: 06/04/2022 10:16 EDT Performed On: 06/04/2022 10:13 EDT by Kristen Matias Rn-Software Test Analyst Initial Assessment I Previously Documented Living Environment : No qualifying data available. Living Situation : Home Patient Lives With : Spouse Is the Patient a Caregiver at Home? : No Emergency Contact #1 : Clare King Emergency Contact #1 Emergency Contact #1 Relationship : Emergency Contact #2 : Shree Emergency Contact #2 Phone Number : NA Emergency Contact #2 Relationship : NA Identified Medical Decision Maker : Self Enter Doctors Name : Dr. Mumtaz Larson Does Patient have PCP Listed? : Yes Medical Durable Power of Videographer Name : no Legal Guardian : No Is Guardianship Needed : No Kristen Matias Rn-Software Test Analyst - 06/04/2022 10:13 EDT Initial Assessment II Sensory and Motor Deficits : Weakness Current Home Treatments and Equipment : BiPAP, Cane, Shower chair, Other: bed that head raises Services and Community Resources : Other: n/a Does the Patient have a Floor to SNF Benefit? : No Kristen Matias Rn-Software Test Analyst - 06/04/2022 10:13 EDT Discharge Needs I Anticipated Discharge Date : 06/04/2022 EDT Anticipated Discharge To, CM : Home with home health Current Home Treatment/Equipment : Current Home Treatment/Equipment No qualifying data available. Post Acute/Home Treatments : Tube feeding Documentation Status Complete : Yes Kristen Matias Rn-Software Test Analyst - 06/04/2022 10:13 EDT Discharge Needs II Professional Skilled Services : Professional Skilled Services No qualifying data available. Services and Community Resources : Home Health, Home Infusion Therapy Needs Assistance with Transportation : No Discharge Options Discussed with Patient : Discharge transportation, Home Health, Short term rehabilitation Patient Discharge Goal : Home health care Kristen Matias Rn-Software Test Analyst - 06/04/2022 10:13 EDT Narrative Note Narrative Note : Patient lives at home with spouse, and is iADLs at baseline. Patient/spouse drive to appointments as needed. Has a cane and a bipap, provided by [employer]. Patient has no history with HH or STR. Needs HH and TFs at discharge, has no preference which companies are used. Agreeable to [facility] and [facility]. Referrals made. Patient's TFs are covered at 100% per [facility] rep. PLAN: Home with home health (referral sent to [facility] for wound care and MIRROR FINISHING MACHINE OPERATOR) and tube feeds (referral sent to [facility] - covered at 100%), spouse to transport. Anticipate dc 06/05; HIGH readmission risk CM will continue to follow. Kristen Matias Rn-Software Test Analyst - 06/04/2022 10:13 EDT Electronically signed by Sherri [facility] Conversion Outpatient Coding Specialist Cerner at 02/01/2023 6:56 PM CDT documented in this encounter Plan of Treatment Not on file documented as of this encounter Visit Diagnoses Not on filedocumented in this encounter Care Teams Packing And Stamping Machine Operator Relationship Specialty Start Date End Date Mumtaz Larson MD [address] [facility] [address] [place] [phone] PCP - General Family Medicine 08/26/22 documented as of this encounter
--- OUTSIDE RECORDS SUMMARY | 2025-06-16 09:41 | XMS_ITS | Encounter Summary ---
Author Organization [employer] ([place], [place], [place], [place]) Address [address] [place] [address] Care Team Providers Care Press Secretary Name Role Phone Mumtaz Larson MD Primary Care Provider + [phone] Encounter Details Date Type Department Care Team (Late st Contact Info) Description 10/02/2020 Transcribed Document [facility] - [facility] [address] [phone] Jass Ordonez MD [address] [place] [address] [address] [place] [address] Social History Tobacco Use Types Packs/Day Years Used Date Smoking Tobacco: Never Assessed Sex and Gender Information Value Date Recorded Sex Assigned at Male 05/13/2022 12:59 PM CDT Legal Sex Male 1:44 PM CDT Gender Identity Male 05/13/2022 12:59 PM CDT Sexual Orientation Not on file documented as of this encounter Miscellaneous Notes * Cerner Conversion Note - Jass Ordonez MD - 10/02/2020 6:20 PM EST DATE OF PROCEDURE: 10/02/2020 SURGEON: Jass Ordonez MD PRIMARY CARE PHYSICIAN: Dr. Mumtaz Larson. PREOPERATIVE DIAGNOSIS: L4-5 spondylolisthesis. POSTOPERATIVE DIAGNOSIS: L4-5 spondylolisthesis. INDICATION FOR PROCEDURE: L4-5 spondylolisthesis. PROCEDURE: An L4-5 transforaminal lumbar interbody fusion. MOBILITY SCOOTER REPAIRER: Rasta Helms PA-C. ANESTHESIA TYPE: GEA. DESCRIPTION OF PROCEDURE IN DETAIL: Once consent was noted to be on chart, Mr. Dejesus was taken to the operating room. He was anesthetized and placed into the prone position on Christiano spine frame. All pressure points were carefully checked and padded. Preoperative antibiotics were given. He was prepped and draped in usual sterile fashion. A time-out was called. A #10 blade was used to make 2 vertical incisions 6 cm off bilateral to L4-5. The fascia was then incised on the left and a tubular dilator system was docked on the left at L4-5. The operative microscope was brought into the field. A high-speed drill #2 and #3 Kerrisons were used to perform a facetectomy and hemilaminectomy. Full decompression of the left L5 nerve root was achieved. The disk space was exposed. A complete diskectomy was performed and a 12 mm carbon fiber spacer packed with allograft and autograft was placed into the disk space. This further decompressed the segment. We verified the descending nerve roots were free. Meticulous hemostasis was obtained. No CSF was visualized throughout this procedure and the retractor was removed. Using an intraoperative CT scans and spinal stereotactic navigation using the LVL7 Systems system, pedicle screws were placed at L4 and L5 bilaterally. A pascual was placed from L4-L5 bilaterally and set screws torqued to factory specifications. Extension tabs were removed. The fascia was reapproximated with 0 Vicryl. 2-0 Vicryl closed the space and closed the skin subcuticularly. The skin was stapled. Bacitracin and Covaderm were applied. Steinmann pins that were used for stereotactic navigation were removed from the right iliac crest. Rasta Helms PA-C, assisted throughout surgery and helped to perform the closure. SPECIMEN SENT: None. ESTIMATED BLOOD LOSS: 50 mL. DRAINS: None. COMPLICATIONS: None. /[id number] MD ASCENCION [place]/BRANDON / ASCENCION / MODL /[id number] CC: Dr. Mumtaz Larson documented in this encounter Plan of Treatment Not on file documented as of this encounter Visit Diagnoses Not on filedocumented in this encounter Care Teams Press Secretary Relationship Specialty Start Date End Date Mumtaz Larson MD [address] [facility] [address] [place] [phone] PCP - General Family Medicine 08/26/22 documented as of this encounter
--- OUTSIDE RECORDS SUMMARY | 2025-06-16 09:41 | XMS_ITS | Encounter Summary ---
Author Organization [employer] ([place], [place], [place], [place]) Address [address] [place] [address] Care Team Providers Care Elevator Constructor Hydraulic Name Role Phone Mumtaz Larson MD Primary Care Provider + [phone] Encounter Details Date Type Department Care Team (Late st Contact Info) Description 06/04/2022 Transcribed Document [facility] [place] Family Medicine [address] [place] [address] ProviderGabriel MD [address] [place] [address] Social History Tobacco Use Types Packs/Day Years [...] Date Macario rded Speak language other than Central African at home Not on file 10/29/2023 [...] Conversion Note - Historical Provider, - 06/04/2022 1:30 PM CDT Nursing Discharge Summary Entered On: 06/04/2022 13:30 EDT Performed On: 06/04/2022 13:30 EDT by Adore Walker RN-PATIENT CARE BEDSIDE NON-EXEMPT Discharge Documentation Discharge Date/Time : 06/04/2022 15:00 EDT Patient Disposition, General : Discharge Discharge To : Home with ambulatory/outpatient follow-up Personal Belongings With Patient : Yes Pt's Own Supply of Medications Returned : No patient supply of medications to return Prescriptions Given to Patient : No Medications Given to Patient : Yes Patient Education Completed : Yes Teaching Method : Explanation Teaching Evaluation : Verbalizes understanding Adore Walker RN-PATIENT CARE BEDSIDE NON-EXEMPT - 06/04/2022 13:30 EDT documented in this encounter Plan of Treatment Not on file documented as of this encounter Visit Diagnoses Not on filedocumented in this encounter Care Teams Elevator Constructor Hydraulic Relationship Specialty Start Date End Date Mumtaz Larson MD [address] [facility] [address] [place] [phone] PCP - General Family Medicine 08/26/22 documented as of this encounter
--- OUTSIDE RECORDS SUMMARY | 2025-06-16 09:41 | XMS_ITS | Encounter Summary ---
Author Organization [employer] ([place], [place], [place], [place]) Address [address] [place] [address] Care Team Providers Care Valve Lapper Name Role Phone Mary Fajardo MD Primary Care Provider + [phone] Encounter Details Date Type Department Care Team (Late st Contact Info) Description 06/04/2022 Transcribed Document [facility] [place] Family Medicine [address] [place] [address] ProviderGabriel MD [address] [place] [address] Social History Tobacco Use Types Packs/Day Years [...] Date Macario rded Speak language other than Rwandan at home Not on file 10/29/2023 Want [...] Notes * Brant Conversion Note - Historical Provider, - 06/04/2022 10:45 AM CDT Patient: TIEN DEJESUS Age: 66 Years Sex: Male : 1955 Admit Date 06/01/2022 13:28 Discharge Date 06/04/22 Primary Care Provider MARY FAJARDO (REF)[facility] Discharge Diagnosis Myasthenia Gravis, with exacerbation -worsening dysphagia -neuro consult--discussed w Dr. Mccullough -IVIG per neuro -ST following -sp PEG 06/03 -meds and MAR reviewed R elbow bursitis -per ortho, felt bursitis -ok to continue abx with immunocompromised, vanc and zosyn -US elbow noted, mri ordered but pt will not tolerate -ortho consult--appreciate dr. Rosas -add BC, procal/ lactic (NEG) H/O Prostate cancer Hypothyroidism -levothyroxine Diabetes mellitus -Sliding-scale insulin -Monitor blood sugar HTN -continue home meds hx of Prolonged Qt -WNL Procedures SN - Proc - Procedure: EGD w Peg Tube Placement (06/02/22 14:54:32) *Operation EGD w Peg Tube Placement, Gastric Biopsy, Anesthesia Type FARHAT FIELD MD-ANS (Anesthesiologist of Record) FARHAT FIELD MD-ANS (Anesthesiologist of Record) Indication for Surgery Feeding difficulty *Preoperative Diagnosis Failure to Thrive *Postoperative Diagnosis Failure to Thrive *Surgeon(s) Primary Surgeon ROCAEL FINLEY MD (Surgeon/Proceduralist, First) *Estimated Blood Loss 5ml *Findings see chart for full report and images gastritis; biopsies fr h pylori duodenal erosions PEG placed in body, anterior wall; 3.5cm at skin; 4.5cm at bumper PLAN: F/U biopsy results, TF in 4 hours, water and medication now *Specimen(s) gastric Complications none [1] Studies REPORT FOUR-VIEW RIGHT ELBOW HISTORY: Infected elbow, swelling and redness. COMPARISON: None. FINDINGS: There is no apparent joint effusion. There is no fracture, dislocation or other acute abnormality of bone. A small well-corticated ossicle posterior to the olecranon is considered a normal variant. Significant soft tissue swelling is seen throughout the elbow, particularly posteriorly. IMPRESSION: No acute osseous abnormality. Soft tissue swelling. [2] REPORT ULTRASOUND OF THE SOFT TISSUES OF THE RIGHT ELBOW HISTORY: Right elbow swelling and redness. PROCEDURE: Limited sonographic images of the soft tissues of the right elbow were obtained. FINDINGS: There is a heterogeneous complex mass measuring 47 x 36 mm, this may represent a hematoma, abscess or neoplasm. IMPRESSION: Heterogeneous complex mass as above may represent hematoma, abscess or neoplasm. CT or MRI recommended for further evaluation. [3] Reason for Hospitalization 66 yo male with unfortunate diagnosis of myasthenia gravis, on cellcept, prednisone and Mestinon presented with worsening dysphagia. Over the last week developed R elbow tenderness, erythema and pain, NO trauma. Went to PCP and was placed on bactrim and clindamycin. He states that he has had chronic issues with dysphagia since diagnosis, Dr. Chester has been titrating meds but that it seems worsened by starting antibiotics and elbow issue since Wednesday. He has been taking meds PO but has to crush them and put them in water and sip them. He has had continued weight loss, 60 lbs since this started. Denies fever/chills. Hospital Course Myasthenia Gravis, with exacerbation and worsening dysphagia. Seen by Dr. Mccullough, neurology: 66yo M with recent diagnosis of myasthenia gravis who has been maintained on Cellcept and prednisone as well as mestinon as an outpatient; he is admitted with exacerbation in the setting of possible bursitis/cellulitis of the right elbow as well as use of clindamycin (clindamycin specifically can worsen myasthenia). He is now s/p 3 days of IV Ig treatment and doing much better; he did have PEG placed this admission due to ongoing dysphagia with inconsistent ability to eat and take medications as an outpatient. Plan is for discharge today as he is much improved; he will continue Cellcept, prednisone 50mg and Mestinon 60mg qid. He has outpatient neurologic follow up with neurology, Dr. Chester, on 06/15. Plan discussed with patient, and hospitalist; will sign off from here, call with questions. Pt with continued dysphagia, difficulty swallowing pills, weight loss. PEG placed by Dr Finley. ST will be set up to re-eval patient after discharge to advance diet but in interim will have PEG teaching and TF. Pt aware that this is hopefully not a forever thing and he should hopefully improve. Pharmacy aware of meds need to be PEG form and will adjust. Seen by ortho regarding R elbow. They felt bursitis. XR wo concern. MRI ordered but pt did not tolerate and ortho did not feel necessary. US showed hematoma v abscess v neoplasm. Ortho felt bursitis and he will need 10 more days of ceftin per DAV Willis. I checked with neurology who confirmed that this should be ok. Pt and have list of meds to avoid which will worsen myasthenia. BB are on this list but he has been tolerating and Dr. Mccullough did not feel need to stop. Pt improved, felt ok for DC. Did have some diarrhea associated wtih TF and regiment was adjusted by resident athletic trainer. Spoke personally to resident athletic trainer who recommended: Clinical Dietitian Note Clinical Dietitian Note : 06/04: RN called RD, reported pt had diarrhea all night last night. TF was held. Requesting alternative TF recs. RD to modify to TwoCal HN and bolus feeds to prepare for d/c home (? Today per MD note). Will modify orders. Est nutrient needs: 3742-2195 kcals (MSJ*1.2AF), 90-110g pro (1.0-1.2 g/kg) 1. In preparation for d/c home, modify TF to bolus. RD recommending 4.5 cans/day of TwoCal HN (1 @ 8 am, 1 @ 12 pm, 1 @ 4 pm, 1.5 @ 8 pm) (provides 2137 kcal; 90 gm pro). Recommend 150 ml FW before and after each can (provides total of 1947 ml H20/day). Goal: meet est needs 2. Advance diet per EDUCATION AND TRAINING COORDINATOR and MD + 60g CHO restriction. RD to assess for supplements Goal: tolerate PO diet advancement 3. Monitor weight 1-2x weekly Goal: prevent further unintentional wt changes 4. Monitor elytes and replace PRN. Pt may have an increased risk for refeeding syndrome Goal: elytes WNL 5. Optimize glucose and adjust insulin PRN - note pt no longer on carb-steady formula Goal: Glu 70-180 High nutrition risk Diet per ST and fu with Dr. Chester 06/[address] Rosas fu in 2 weeks. Vital Signs T: 36.3 ??C TMIN: 36.3 ??C TMAX: 36.5 ??C HR: 66(Monitored) RR: 16 BP: 114/80 SpO2: 96% Oxygen Settings (Last) Oxygen Therapy Mode: Room air (06/04/22 09:00:00) Physical Exam improving R elbow speech improved smiling and joking Discharge Disposition Home with Home Care Discharge Follow Up MARY FAJARDO - Within 5 to 7 days JOYCE CHESTER - In 11 days 06/15/2022 PILLO ROSAS - Within 2 weeks Discharge Medications (17) Active allopurinol 300 mg oral tablet 300 mg = 1 Tab, Oral, Daily atenolol-chlorthalidone 100 mg-25 mg oral tablet 1 Tab, Oral, Daily calcium (as carbonate)-vitamin D 500 mg-2.5 mcg (100 intl units) oral tablet, chewable 1 Tab, Chew, BID Ceftin 500 mg oral tablet 500 mg = 1 Tab, Oral, BID Cymbalta 60 mg oral delayed release capsule 120 mg = 2 Cap, Oral, Daily Flonase 1 Watkins, Nostrils Both, Daily levothyroxine 50 mcg (0.05 mg) oral tablet 50 mcg = 1 Tab, Oral, Daily MetFORMIN (Eqv-Glucophage XR) 500 mg oral tablet, extended release 500 mg = 1 Tab, Oral, Daily mycophenolate mofetil 500 mg oral tablet 500 mg = 1 Tab, Oral, BID Potassium Chloride (Roa-Fztp-Gtc M20) 20 mEq oral tablet, extended release 20 mEq = 1 Tab, Oral, BID pramipexole 0.25 mg oral tablet 0.25 mg = 1 Tab, Oral, At Bedtime predniSONE 50 mg oral tablet 50 mg = 1 Tab, Oral, Daily PriLOSEC 20 mg oral delayed release capsule 20 mg = 1 Cap, Oral, Daily pyridostigmine 60 mg oral tablet 60 mg = 1 Tab, Oral, QID QUEtiapine 50 mg oral tablet 50 mg = 1 Tab, Oral, BID TriCor 145 mg oral tablet 145 mg = 1 Tab, Oral, Daily Vitamin D3 400 units oral tablet 10 mcg = 1 Tab, Oral, Daily Code Status Start: 06/01/22 16:50:00 EDT, Full Code, Continuous Order Condition on Discharge improved Consulting Physicians PILLO CORNELL MD-NEU - MG exacerbation, dysphagia PILLO ROSAS MD-ORT - R SRAVAN Cooney MD-NEU WILSON, MATTHEW L, MD-ANS Current Diet Order Tube Feeding, Adult - Ordered -- Start: 06/04/22 10:10:00 EDT, Bolus Tube Feeding, Formula: High calorie TF Formula, Instructions: Modify TF to bolus: 4.5 cans/day of TwoCal HN (1 @ 8 am, 1 @ 12 pm, 1 @ 4 pm, 1.5 @ 8 pm). FW per MD Anahi MALAGON recommend 150 ml FW before and after each can. Pending Labs In Process SENDOUT REPORT [id number], [id number], RT - Routine, 06/02/22 14:44:00 EDT Pathology Tissue Request [id number], [id number], 06/02/22 14:44:00 EDT, Collected, RT - Routine, 06/02/22 15:53:45 EDT, JOAQUIN GUZMAN Histcecilio, Specimen Type: AP Specimen, Specimen Desc: Gastric Bx In Transit Path Tissue Request, Sendout Specimen Type: AP Specimen, Routine collect, 06/02/22 14:44:00 EDT, 1-Time, Collected, Stop: 06/02/22 14:44:00 EDT, Nurse Collect, Specimen Desc: Gastric Bx, Print Label By Order Location Preliminary Culture Blood Specimen Type: Blood, Timed Study collect, 06/01/22 16:35:00 EDT, 1-Time, Stop: 06/01/22 16:35:00 EDT, Lab Collect Culture Blood Specimen Type: Blood, Timed Study collect, 06/01/22 16:35:00 EDT, 1-Time, Stop: 06/01/22 16:35:00 EDT, Lab Collect Scheduled Vancomycin Level Trough Specimen Type: Blood, Timed Study collect, 06/06/22 4:00:00 EDT, 1-Time, Stop: 06/06/22 4:00:00 EDT, Lab Collect Time Spent on Discharge 45 mins. [1] Op Note - Brief; ROCAEL FINLEY MD 06/02/2022 15:33 EDT [2] CR Elbow 2 Vws RT; HOUSTON KENDALL 06/01/2022 19:45 EDT [3] US Up Ext Nonvas Comp; ROBERTO SANDOVAL 06/02/2022 10:05 EDT Electronically signed by Sherri, [facility] Conversion Certified Physician Assistant Cerner at 02/01/2023 6:58 PM CDT documented in this encounter Plan of Treatment Not on file documented as of this encounter Visit Diagnoses Not on filedocumented in this encounter Care Teams Valve Lapper Relationship Specialty Start Date End Date Mary Fajardo MD [address] [facility] [address] [place] [phone] PCP - General Family Medicine 08/26/22 documented as of this encounter
--- OUTSIDE RECORDS SUMMARY | 2025-06-16 09:41 | XMS_ITS | Encounter Summary ---
Author Organization [email or web address] ([place], [place], [place], [place]) Address [address] [place] [address] Care Team Providers Care Fws Faculty Assistant Name Role Phone Mumtaz Larson MD Primary Care Provider + [phone] Encounter Details Date Type Department Care Team (Late st Contact Info) Description 06/04/2022 Transcribed Document [facility] [place] [address] [place] [address] ProviderGabriel MD [address] [place] [address] Social History Tobacco Use Types Packs/Day Years [...] Conversion Note - Historical Provider, - 06/04/2022 10:26 AM CDT Patient: TIEN GARCIA Age: 66 years Sex: Male : 1955 Associated Diagnoses: None Author: SRAVAN HIDALGO MD-TEETEE Subjective Pt continues to improve; feels ready to go home today Objective VS/Measurements Vital Signs/Vital Measures 06/04/2022 0:21 EDT Systolic Blood Pressure 114 mmHg Diastolic Blood Pressure 80 mmHg Temperature, Fahrenheit 97.4 Deg F Heart Rate Monitored 66 bpm General: Awake and alert, in no distress; speech is fluent with mild dysarthria and nasal quality- continues to improve. Eye: Pupils are equal, round and reactive to light, Extraocular movements are intact, no ptosis. Respiratory: Respirations are non-labored. Cardiovascular: Normal rate, Regular rhythm. Neurologic: CN II-VII intact, no facial weakness; motor strength is 5/5 throughout, sensation intact, no ataxia. Gait is steady. Results Review Labs reviewed Impression and Plan 66yo M with recent diagnosis of myasthenia [...] outpatient neurologic follow up with neurology, Dr. Fields, on 06/15. Plan discussed with patient, and hospitalist; will sign off from here, call with questions. documented in this encounter Plan of Treatment Not on file documented as of this encounter Visit Diagnoses Not on filedocumented in this encounter Care Teams Fws Faculty Assistant Relationship Specialty Start Date End Date Mumtaz Larson MD [address] [facility] [address] [place] [phone] PCP - General Family Medicine 08/26/22 documented as of this encounter
--- OUTSIDE RECORDS SUMMARY | 2025-06-16 09:41 | XMS_ITS | Encounter Summary ---
Author Organization [employer] ([place], [place], [place], [place]) Address [address] [place] [address] Care Team Providers Care Pr Internship Name Role Phone Mumtaz Larson MD Primary Care Provider + [phone] Encounter Details Date Type Department Care Team (Late st Contact Info) Description 04/08/2022 Transcribed Document [facility] Family Medicine [address] [place] [address] ProviderGabriel MD [address] [place] [address] Social History Tobacco Use Types Packs/Day Years [...] Date Macario rded Speak language other than Mexican at home Not on file 10/29/2023 Want [...] Cerner Conversion Note - Historical Provider, - 04/08/2022 10:13 AM CDT Patient: TIEN GARCAI Age: 66 years Sex: Male : 1955 Associated Diagnoses: None Author: BLAINE DRAPER MD Subjective Seen and examined this morning Corpak placed pyridostigmine and IV steroid no Family at bedside Review of Systems Blurry vision unable to raise his right eye lid Difficulty swallowing Shortness of breath No fever no chills Health Status Allergies: Allergic Reactions (Selected) No Known Medication Allergies, Allergies (1) Active Reaction No Known Medication Allergies None Documented Current medications: (Selected) Inpatient Medications Ordered Benadryl: 25 mg, IV Push, Daily Dextrose [...] IV Push, See Comment, PRN: IV Use Roxicodone: 5 mg, Oral, Q4H, PRN: Pain [...] 3.375 Gram, 33.33 mL/Hr, IV Piggyback, Q6HInt glucagon: 1 mg, IntraMuscular, Q15Min, PRN: Other (See Comment) glucose 4 g oral tablet, chewable: 16 Gram, 4 Tab, Chew, Q15Min, PRN: Other (See Comment) glucose 40% oral gel: 15 Gram, 37.5 mL, Oral, Q15Min, PRN: Other (See Comment) hydrALAZINE: 10 mg, IV Push, Q6H, PRN: Hypertension immune globulin intravenous: 40 Gram, 400 mL, 100 mL/Hr, IV Piggyback, Daily insulin regular sliding scale: Scale A, SubCutaneous, Q6H labetalol: 10 mg, IV Push, Q1H, PRN: Other (See Comment) potassium phosphate: 30 mMole, 10 mL, IV Piggyback, 1-Time pyridostigmine: 2 mg, IV Push, TID Documented Medications Documented Benadryl 25 mg oral tablet: 1 Tab, Oral, TID, PRN: Allergies, 0 Refill(s) Cymbalta 60 mg oral delayed release capsule: 2 Cap, Oral, Daily, (do not crush or chew), 30 Cap, 0 Refill(s) Entocort EC 3 mg oral delayed release capsule: 3 Cap, Oral, Daily, 0 Refill(s) Flomax 0.4 mg oral capsule: 1 Cap, Oral, Daily, 0 Refill(s) Flonase: 1 Mcalister, Nostrils Both, Daily, 0 Refill(s) MetFORMIN (Eqv-Glucophage [...] Tab, Oral, At Bedtime, 0 Refill(s), Medications (28) Active Scheduled: (11) #NaCl 0.9% *FLUSH* inj 10 mL 10 mL, IV Push, Q12H acetaminophen 325 mg tab 650 mg 2 Tab, Oral, Daily diphenhydrAMINE 50 mg/1 mL inj 25 mg 0.5 mL, IV Push, Daily immune globulin (Octagam) 40 Gram 400 mL, IV Piggyback, Daily insulin regular 1 unit/0.01 mL inj 3mL Scale A, SubCutaneous, Q6H methylPREDNISolone succinate 500 mg, IV Piggyback, BID piperacillin-tazobactam + NaCl 0.9% 100 mL 3.375 Gram, IV Piggyback, Q6HInt potassium phosphate 30 mMole 10 mL, IV Piggyback, 1-Time pyridostigmine 5 mg/mL inj 2 mL 2 mg 0.4 mL, IV Push, TID pyridostigmine 60 mg/5 mL liq 60 mg 5 mL, Oral, TID QUEtiapine 200 mg tab 400 mg 2 Tab, Oral, BID Continuous: (1) NaCl 0.9% 1,000 mL 1,000 mL, IntraVENous, 50 mL/Hr PRN: (16) #NaCl 0.9% *FLUSH* inj 10 mL 10 mL, IV Push, See Comment acetaminophen 325 mg tab 650 mg 2 Tab, Oral, Q4H albuterol-ipratropium inh 3 mL 3 mL, Nebulized Inhalation, RT_Q6H bisacodyl EC 5 mg tab 5 mg [...] list: Medical Allergic rhinitis / SNOMED CT 009966652 / Confirmed Hard of hearing / SNOMED CT 130606382 / Confirmed High blood pressure / SNOMED CT 71877450 / Confirmed Bronchitis / SNOMED CT 29304071 / Confirmed GERD - Gastro-esophageal reflux disease / SNOMED CT 2243415095 / Confirmed Microscopic colitis / SNOMED CT 590910365 / Confirmed Arthritis / SNOMED CT 2695013 / Confirmed Diabetes mellitus type II / SNOMED CT 18694159 / Confirmed Prostate cancer / SNOMED CT 0962312769 / Confirmed History of obstructive sleep apnea / IMO 72839200 / Confirmed, Active Problems (10) Allergic rhinitis Arthritis Bronchitis Diabetes mellitus type II GERD - Gastro-esophageal reflux disease Hard of hearing High blood pressure History of obstructive sleep apnea Microscopic colitis Prostate cancer Objective VS/Measurements Vitals Signs (last 24 hrs) Last Charted Minimum Maximum Temp 98.0 (APR 08 09:18) 97.8 (APR 08 06:06) 98.3 (APR 07 21:33) Mon HR 74 (APR 08 09:18) 74 (APR 08 09:18) 109 (APR 07 21:33) Resp Rate 18 (APR 08 06:06) 16 (APR 07 21:33) 18 (APR 07 14:52) SBP H 165 (APR 08 09:18) 130 (APR 07 21:00) H 167 (APR 08 06:06) DBP 89 (APR 08 09:18) 86 (APR 08 06:06) H 106 (APR 08 01:02) MAP 124 (APR 08:18) 103 (APR 07 21:33) 147 (APR 08 06:06) SpO2 L 89 (APR 08 09:18) L 86 (APR 08 06:06) 99 (APR 07 14:52) General: Alert and oriented, No acute distress. [...] mood & affect. Review / Management APR 08 07:12 138 107 17 / H 167 L 3.4 22 0.70 \ APR 08 07:12 \ 17.1 / 7.0 356 / 50.8 \ Radiology Results (Last 48 hours) [id number] -- 04/06/2022 15:42 CR Chest 1 Vw Portable (04/06/2022 18:07) Result: PORTABLE CHEST HISTORY: Shortness of breath.COMPARISON: None.FINDINGS: The heart is mildly enlarged in size. The mediastinum isunremarkable. There is a linear atelectasis at the lung bases. The lungsare otherwise clear. There is no pneumothorax. IMPRESSION: No acute cardiopulmonary process.Images reviewed, interpreted, and dictated by Dr. Sherif Chavis.Transcribed by Mayelin Valdez PA-C.I have personally viewed, interpreted and dictated the examination. Ihave read and agree with the above final transcribed report. CR Chest 1 Vw Portable (04/07/2022 13:34) [...] review: Labs (Last four charted values) WBC 7.0 (APR 08) H 11.3 (APR 07) H 15.6 (APR 06) HB 17.1 (APR 08) 16.7 (APR 07) H 17.6 (MAR 20) HCT 50.8 (VERO 22) 50.7 (VERO 21) H 52.3 (VERO 20) Plt 356 (VERO 22) 362 (VERO 21) 329 (VERO 20) Na 138 (VERO 22) 138 (VERO 21) 138 (VERO 20) K L 3.4 (MAR 22) 3.6 (VERO 21) L 3.2 (VERO 20) Cl 107 (APR 08) 103 (VERO 21) 102 (VERO 20) CO2 22 (MAR 22) 25 (MAR 21) 23 (VERO 20) BUN 17 (APR 08) 15 (APR 07) 13 (MAR 20) Cr 0.70 (APR 08) 0.70 (APR 07) 0.80 (VERO 20) Glu R H 167 (APR 08) 105 (APR 07) H 127 (MAR 20) Ca 9.1 (APR 08) 9.0 (APR 07) 9.1 (MAR 20) AST H 39 (APR 08) 26 (APR 06) ALT 49 (APR 08) 31 (MAR 20) ALK P 73 (APR 08) 64 (VERO 20) T Bili 1.1 (APR 08) 0.7 (MAR 20) PTN 7.7 (APR 08) 8.0 (APR 06) [...] PCR negative, CXR noted Breathing treatment PRN Can use BiPAP for increased work of breathing At risk of worsening respiratory status consulted pulmonary #Aspiration pneumonia Sputum culture IV Zosyn Breathing treatment #Hypokalemia and hypophosphatemia Replace with IV #Hypothyroidism Patient on levothyroxine at home Check TSH #Diabetes mellitus Sliding-scale insulin Monitor blood sugar #HTN Use IV hydralazine PRN Discussed with patient, family at bedside Discussed with neurology Discussed with Pulmonary Labs, imaging chart from outside hospital reviewed Time spent 31 minutes Disposition: Admitted for dysphagia blurry vision, secondary to myasthenia gravis, neurology following, started on pyridostigmine, IV steroid CT chest and MRI brain when able to lay flat, Indu, PT./OT. IV steroid Pulmonary following at risk of worsening respiratory status. will transfer to ICU Electronically signed by Sherri, [facility] Conversion Lathe Set Up Operator Cerner at 02/01/2023 6:53 PM CDT documented in this encounter Plan of Treatment Not on file documented as of this encounter Visit Diagnoses Not on filedocumented in this encounter Care Teams Pr Internship Relationship Specialty Start Date End Date Mumtaz Larson MD [address] [place] [facility] [address] [place] [phone] PCP - General Family Medicine 08/26/22 documented as of this encounter
--- OUTSIDE RECORDS SUMMARY | 2025-06-16 09:41 | XMS_ITS | Encounter Summary ---
Author Organization [employer] ([place], [place], [place], [place]) Address [address] [place] [address] Care Team Providers Care Hydrostatic Tubing Tester Name Role Phone Mary Larson MD Primary Care Provider + [phone] Encounter Details Date Type Department Care Team (Late st Contact Info) Description 10/03/2020 Transcribed Document [facility] [place] [facility] [address] [place] [address] ProviderGabriel MD [address] [place], [place] [address] Social History Tobacco Use Types Packs/Day Years Used Date Smoking Tobacco: Never Assessed Sex and Gender Information Value Date Recorded Sex Assigned at Male 05/13/2022 12:59 PM CDT Legal Sex Male 1:44 PM CDT Gender Identity Male 05/13/2022 12:59 PM CDT Sexual Orientation Not on file documented as of this encounter Miscellaneous Notes * Cerner Conversion Note - Gabriel ProviderMD - 10/03/2020 2:00 PM BAG MENDER [facility] [place] [address] GARCIAT[place]EN :1955 Visit Time:10/02/2020 Your Visit Summary Your Care Team Admitting Physician - RUSLAN FRAZIER MD-SANDEEP Attending Physician - RUSLAN FRAZIER MD-SANDEEP Primary Care Physician - MARY LARSON (REF)MD-[facility] Referring Physician - FREDDIE, RUSLAN CRAIG MD-SNU Your Diagnosis Spondylolisthesis, grade 1 Other spondylosis with myelopathy, lumbar region, Other spondylosis with myelopathy, lumbar region Spondylolisthesis of lumbar region Discharge Vitals Temperature 36.8 ??C Heart Rate (Monitored) 72 Blood Pressure 114/75 What to do next Instructions From Your Care Team Diet after Discharge: Resume usual diet as tolerated Activity after Discharge: As tolerated, No strenuous activity Lifting Restrictions: No heavy lifting over 10 pounds Weight Bearing: Full weight bearing Driving after Discharge: Do not drive Showering/Bathing: May shower, No tub bathing, soaking or swimming; Do not allow water to hit directly on incision, do not apply any ointments or lotions to incision Notify Provider of: Fever above 101 for 24 hours, increase in pain, drainage, redness, swelling or foul smell at incision site Wound/Incision Care after Discharge: Keep operative site/wound site clean and dry, Change dressing with dry dressing daily and as needed; May leave incision open to air after third day if no drainage present Medical Equipment for Home Use: Home Health Services: Community Services: Discharge Activity: Discharge Activity: No heavy lifting over 10 lbs Diet: Discharge Diet: Resume usual diet as tolerated Follow-Up Appointments Follow Up with RUSLAN FRAZIER When 11/18/2020 11:30 AM EST Comments Please go to the [facility] for x-rays at 10:45 before going to your appointment at 11:30. Where: [address] [place] [phone]- Business (1) Follow Up with RUSLAN FRAZIER When 10/21/2020 03:30 PM EST Comments Appointment has been made for suture/staple removal Where: [address] [place] [address] [address] [employer] (1) Medications What How Much When Instructions Next Dose acetaminophen-oxyCODONE (Percocet 7.5/ 325 oral tablet) 1 Tablet(s) Oral Every 6 Hours as needed for for pain docusate 100 Milligram(s) Oral Two Times A Day May purchase over the counter. Take while on pain medication. tonight DULoxetine 120 Milligram(s) Oral Every Day in am QUEtiapine (SEROquel 400 mg oral tablet) 1 Tablet(s) Oral Two Times A Day tonight allopurinol (allopurinol 300 mg oral tablet) 1 Tablet(s) Oral Every Day in am atenolol-chlorthalidone (atenolol-chlorthalidone 100 mg-25 mg oral tablet) 1 Tablet(s) Oral Every Day in am budesonide (Entocort EC 3 mg oral delayed release capsule) 1 Capsule(s) Oral Every Day in am cyclobenzaprine (cyclobenzaprine 10 mg oral tablet) 1 Tablet(s) Oral Three Times A Day as needed for as needed for muscle spasms as needed diphenhydrAMINE (Benadryl 25 mg oral tablet) 1 Tablet(s) Oral Three Times A Day as needed for Allergies as needed fenofibrate (TriCor 145 mg oral tablet) 1 Tablet(s) Oral Every Day in am fluticasone nasal (Flonase) 1 [place](s) Nostrils Both Every Day in am melatonin (Melatonin) 5 Milligram(s) Oral At Bedtime as needed for Insomnia tonight if needed metFORMIN (metFORMIN 500 mg oral tablet) 1 Tablet(s) Oral Two Times A Day tonight multivitamin (Multiple Vitamins oral tablet) 1 Tablet(s) Oral Every Day in am polycarbophil (FiberCon) 1 Tablet(s) Oral Every Day in am potassium chloride (potassium chloride 20 mEq oral tablet, extended release) 1 Tablet(s) Oral Two Times A Day tonight pramipexole (pramipexole 0.25 mg oral tablet) 1 Tablet(s) Oral At Bedtime tonight tamsulosin (Flomax 0.4 mg oral capsule) 1 Capsule(s) Oral Every Day in am levothyroxine (levothyroxine 50 mcg (0.05 mg) oral tablet) 1 Tablet(s) Oral Every Day in am omeprazole 20 Milligram(s) Oral Every Day in am Take your medications faithfully. Do NOT skip [...] This Visit No Immunizations Found Education Materials FAQ ??? Patient COVID-19 testing Why do I need [...] patients who test positive for COVID-19. If I???m a patient, should I wear a mask? [...] follow up with their primary care provider. [employer] may reach out to them to complete contact tracing. Will my status as COVID-19 positive be reported? Because COVID-19 is a public health threat, all positive cases are reported through the local health department and the [place] Department for Public Health. Those organizations are [...] need during a recommended self-quarantine period. The patient???s name is not revealed to anyone during the contact tracing interviews, even if a contact asks. Who would be considered a ???close contact?? ? According to the CDC, a close [...] a face covering and maintain social distancing ??? at least 6 feet from others at [...] and need to call 911, notify the plastics production machine operator that you have, or think you [...] others. You should stay in a specific ???sick room?? if possible, and away from other people [...] (including before you enter a health care provider???s office). ??? If you are caring for [...] clean your hands with an alcohol-based hand senior bioinformatics scientist that contains at least 60% alcohol. Clean your hands often. ??? Wash hands: Wash your hands often with soap and water for at least 20 seconds when visibly dirty. This is especially important after blowing your nose, coughing or sneezing, and going to the bathroom, and before eating or preparing food. ??? Hand senior bioinformatics scientist: Use an alcohol-based hand senior bioinformatics scientist with at least 60% alcohol, covering all [...] and water or put them in the sports broadcasting internship. Clean all high-touch surfaces every day. Clean high-touch surfaces in your isolation area (???sick room?? and bathroom) every day; let a caregiver clean and disinfect high-touch surfaces in other areas of the home. ??? Clean and disinfect: Routinely clean high-touch surfaces in your ???sick room?? and bathroom. Let someone else clean and disinfect surfaces in common areas, but not your bedroom and bathroom. ? If a caregiver or other person needs to clean and disinfect a sick person???s bedroom or bathroom, they should do so [...] or body fluids on them. ??? Household patternmaker apprentice metal and disinfectants: Clean the area or item with soap and water or another detergent if it is dirty. Then, use a household disinfectant. ??? Be sure to follow the instructions on the label to ensure safe and effective use of the product. Many products recommend keeping the surface wet for several minutes to ensure germs are killed. Many also recommend precautions such as wearing gloves and making sure you have good ventilation during use of the product. ??? Most EPA-registered household disinfectants should be effective. A full list of disinfectants can be found here: https://www.epa.gov/pesticide-registration/eaji-o-jxiaoiqobxkek-hsj-kjqphtb-qy rs-cov-2 Spinal Fusion, Adult, Care After This sheet [...] these instructions at home: Medicines ??? Take mhsm-anh-wroblrx and prescription medicines only as told by [...] water are not available, use hand senior bioinformatics scientist. ? Change your dressing as told by [...] urine clear or pale yellow. ? Take ajtf-pjt-uwsqoeg or prescription medicines. ? Eat foods that [...] 04/23/2006 Document Revised: 06/24/2019 Document Reviewed: 09/22/2017 Elsevier Patient Education ?? 2020 Else[employer] Inc. cyclobenzaprine (emily villegasclara ADDIE rios) Amrix, Comfort Pac with Cyclobenzaprine, Fexmid What is the most important information I should know about cyclobenzaprine? You should not use cyclobenzaprine if you have a thyroid disorder, heart block, congestive heart failure, a heart rhythm disorder, or you have recently had a heart attack. Do not use cyclobenzaprine if you have taken an MAO inhibitor in the past 14 days, such as isocarboxazid, linezolid, phenelzine, rasagiline, selegiline, or tranylcypromine. What is cyclobenzaprine? Cyclobenzaprine is a muscle relaxant. It works by blocking nerve impulses (or pain sensations) that are sent to your brain. Cyclobenzaprine is used together with rest and physical therapy to relieve muscle spasms caused by painful conditions such as an injury. Cyclobenzaprine may also be used for purposes not listed in this medication guide. What should I discuss with my healthcare provider before taking cyclobenzaprine? You should not use cyclobenzaprine if you are allergic to it, or if you have: ?? a thyroid disorder; ?? heart block, heart rhythm disorder, congestive heart failure; or ?? if you have recently had a heart attack. Cyclobenzaprine is not approved for use by anyone younger than 15 years old. Do not use cyclobenzaprine if you have taken an MAO inhibitor in the past 14 days. A dangerous drug interaction could occur. MAO inhibitors include isocarboxazid, linezolid, phenelzine, rasagiline, selegiline, and tranylcypromine. Some medicines can interact with cyclobenzaprine and cause a serious condition called serotonin syndrome. Be sure your doctor knows if you also take stimulant medicine, opioid medicine, herbal products, or medicine for depression, mental illness, Parkinson's disease, migraine headaches, serious infections, or prevention of nausea and vomiting. Ask your doctor before making any changes in how or when you take your medications. Tell your doctor if you have ever had: ?? liver disease; ?? glaucoma; ?? enlarged prostate; or ?? problems with urination. It is not known whether this medicine will harm an unborn baby. Tell your doctor if you are or plan to become . It may not be safe to breast-feed while using this medicine. Ask your doctor about any risk. Older adults may be more sensitive to the effects of this medicine. How should I take cyclobenzaprine? Follow all directions on your prescription label and read all medication guides or instruction sheets. Your doctor may occasionally change your dose. Use the medicine exactly as directed. Cyclobenzaprine is usually taken once daily for only 2 or 3 weeks. Follow your doctor's dosing instructions very carefully. Swallow the capsule whole and do not crush, chew, break, or open it. Take the medicine at the same time each day. Call your doctor if your symptoms do not improve after 3 weeks, or if they get worse. Store at room temperature away from moisture, heat, and light. What happens if I miss a dose? Take the medicine as soon as you can, but skip the missed dose if it is almost time for your next dose. Do not take two doses at one time. What happens if I overdose? Seek emergency medical attention or call the Poison Help line at . An overdose of cyclobenzaprine can be fatal. Overdose symptoms may include severe drowsiness, vomiting, fast heartbeats, tremors, agitation, or hallucinations. What should I avoid while taking cyclobenzaprine? Avoid driving or hazardous activity until you know how this medicine will affect you. Your reactions could be impaired. Avoid drinking alcohol. Dangerous side effects could occur. What are the possible side effects of cyclobenzaprine? Get emergency medical help if you have signs of an allergic reaction: hives; difficult breathing; swelling of your face, lips, tongue, or throat. Stop using cyclobenzaprine and call your doctor at once if you have: ?? fast or irregular heartbeats; ?? chest pain or pressure, pain spreading to your jaw or shoulder; or ?? sudden numbness or weakness (especially on one side of the body), slurred speech, balance problems. Seek medical attention right away if you have symptoms of serotonin syndrome, such as: agitation, hallucinations, fever, sweating, shivering, fast heart rate, muscle stiffness, twitching, loss of coordination, nausea, vomiting, or diarrhea. Serious side effects may be more likely in older adults. Common side effects may include: ?? drowsiness, tiredness; ?? headache, dizziness; ?? dry mouth; or ?? upset stomach, nausea, constipation. This is not a complete list of side effects and others may occur. Call your doctor for medical advice about side effects. You may report side effects to FDA at 2-824-SSJ-5851. What other drugs will affect cyclobenzaprine? Using cyclobenzaprine with other drugs that make you drowsy can worsen this effect. Ask your doctor before using opioid medication, a sleeping pill, a muscle relaxer, or medicine for anxiety or seizures. Tell your doctor about all your other medicines, especially: ?? bupropion (Zyban, for smoking cessation); ?? meperidine; ?? tramadol; ?? verapamil; ?? cold or allergy medicine that contains an antihistamine (Benadryl and others); ?? medicine to treat Parkinson's disease; ?? medicine to treat excess stomach acid, stomach ulcer, motion sickness, or irritable bowel syndrome; ?? medicine to treat overactive bladder; or ?? bronchodilator asthma medication. This list is not complete. Other drugs may affect cyclobenzaprine, including prescription and yrhk-pzz-annrdxo medicines, vitamins, and herbal products. Not all possible drug interactions are listed here. Where can I get more information? Your pharmacist can provide more information about cyclobenzaprine. Remember, keep this and all other medicines out of the reach of children, never share your medicines with others, and use this medication only for the indication prescribed. Every effort has been made to ensure that the information provided by [employer]. ('[employer]') is accurate, up-to-date, and complete, but no guarantee is made to that effect. Drug information contained herein may be time sensitive. [employer] information has been compiled for use by healthcare practitioners and consumers in the [place] and therefore [employer] does not warrant that uses outside of the [place] are appropriate, unless specifically indicated otherwise. [employer] drug information does not endorse drugs, diagnose patients or recommend therapy. [employer] drug information is an informational resource designed to assist licensed healthcare practitioners in caring for their patients and/or to serve consumers viewing this service as a supplement to, and not a substitute for, the expertise, skill, knowledge and judgment of healthcare practitioners. The absence of a warning for a given drug or drug combination in no way should be construed to indicate that the drug or drug combination is safe, effective or appropriate for any given patient. [facility] does not assume any responsibility for any aspect of healthcare administered with the aid of information [facility] provides. The information contained herein is not intended to cover all possible uses, directions, precautions, warnings, drug interactions, allergic reactions, or adverse effects. If you have questions about the drugs you are taking, check with your doctor, nurse or pharmacist. Copyright 5213-7403 [employer]. Version: 5.01. Revision Date: 07/13/2018. acetaminophen and oxycodone (a SEET a MIN oh fen and OX i KOE done) Endocet 10/325, Endocet 2.5/325, Endocet 5/325, Endocet 7.5/325, Nalocet, Percocet, Primlev What is the most important information I should know about acetaminophen and oxycodone? MISUSE OF OPIOID MEDICINE CAN CAUSE ADDICTION, OVERDOSE, OR . Keep the medication in a place where others cannot get to it. An overdose of acetaminophen can damage your liver or cause . Call your doctor at once if you have pain in your upper stomach, loss of appetite, dark urine, or jaundice (yellowing of your skin or eyes). Taking opioid medicine during may cause life-threatening withdrawal symptoms in the . Fatal side effects can occur if you use opioid medicine with alcohol, or with other drugs that cause drowsiness or slow your breathing. Stop taking this medicine and call your doctor right away if you have skin redness or a rash that spreads and causes blistering and peeling. What is acetaminophen and oxycodone? Acetaminophen and oxycodone is a combination medicine used to relieve moderate to severe pain. Acetaminophen and oxycodone may also be used for purposes not listed in this medication guide. What should I discuss with my healthcare provider before taking acetaminophen and oxycodone? You should not use this medicine if you are allergic to acetaminophen or oxycodone, or if you have: ?? severe asthma or breathing problems; or ?? a blockage in your stomach or intestines. Tell your doctor if you have ever had: ?? breathing problems, sleep apnea; ?? liver disease; ?? a drug or alcohol addiction; ?? kidney disease; ?? a head injury or seizures; ?? urination problems; or ?? problems with your thyroid, pancreas, or gallbladder. If you use opioid medicine while you are , your baby could become dependent on the drug. This can cause life-threatening withdrawal symptoms in the baby after it is born. Babies born dependent on opioids may need medical treatment for several weeks. Do not breastfeed. This medicine can pass into breast milk and cause drowsiness, breathing problems, or in a nursing baby. How should I take acetaminophen and oxycodone? Follow all directions on your prescription label. Never take this medicine in larger amounts, or for longer than prescribed. An overdose can damage your liver or cause . Tell your doctor if you feel an increased urge to use more of this medicine. Never share this medicine with another person, especially someone with a history of drug abuse or addiction. MISUSE CAN CAUSE ADDICTION, OVERDOSE, OR . Keep the medicine in a place where others cannot get to it. Selling or giving away acetaminophen and oxycodone is against the law. Measure liquid medicine carefully. Use the dosing syringe provided, or use a medicine dose-measuring device (not a kitchen spoon). If you need surgery or medical tests, tell the doctor ahead of time that you are using this medicine. You should not stop using this medicine suddenly. Follow your doctor's instructions about tapering your dose. Store at room temperature away from moisture and heat. Keep track of your medicine. You should be aware if anyone is using it improperly or without a prescription. Do not keep leftover opioid medication. Just one dose can cause in someone using this medicine accidentally or improperly. Ask your pharmacist where to locate a drug take-back disposal program. If there is no take-back program, flush the unused medicine down the toilet. What happens if I miss a dose? Since this medicine is used for pain, you are not likely to miss a dose. Skip any missed dose if it is almost time for your next dose. Do not use two doses at one time. What happens if I overdose? Seek emergency medical attention or call the Poison Help line at . An overdose of acetaminophen and oxycodone can be fatal. The first signs of an acetaminophen overdose include loss of appetite, nausea, vomiting, stomach pain, sweating, and confusion or weakness. Later symptoms may include pain in your upper stomach, dark urine, and yellowing of your skin or the whites of your eyes. Overdose can also cause severe muscle weakness, pinpoint pupils, very slow breathing, extreme drowsiness, or coma. What should I avoid while taking acetaminophen and oxycodone? Avoid driving or operating machinery until you know how this medicine will affect you. Dizziness or drowsiness can cause falls, accidents, or severe injuries. Do not drink alcohol. Dangerous side effects or could occur. Ask a doctor or pharmacist before using any other medicine that may contain acetaminophen (sometimes abbreviated as APAP). Taking certain medications together can lead to a fatal overdose. What are the possible side effects of acetaminophen and oxycodone? Get emergency medical help if you have signs of an allergic reaction: hives; difficulty breathing; swelling of your face, lips, tongue, or throat. Opioid medicine can slow or stop your breathing, and may occur. A person caring for you should seek emergency medical attention if you have slow breathing with long pauses, blue colored lips, or if you are hard to wake up. In rare cases, acetaminophen may cause a severe skin reaction that can be fatal. This could occur even if you have taken acetaminophen in the past and had no reaction. Stop taking this medicine and call your doctor right away if you have skin redness or a rash that spreads and causes blistering and peeling. Call your doctor at once if you have: ?? noisy breathing, sighing, shallow breathing, breathing that stops during sleep; ?? a light-headed feeling, like you might pass out; ?? weakness, tiredness, fever, unusual bruising or bleeding; ?? confusion, unusual thoughts or behavior; ?? problems with urination; ?? liver problems--nausea, upper stomach pain, tiredness, loss of appetite, dark urine, michael-colored stools, jaundice (yellowing of the skin or eyes); or ?? low cortisol levels-- nausea, vomiting, loss of appetite, dizziness, worsening tiredness or weakness. Seek medical attention right away if you have symptoms of serotonin syndrome, such as: agitation, hallucinations, fever, sweating, shivering, fast heart rate, muscle stiffness, twitching, loss of coordination, nausea, vomiting, or diarrhea. Serious side effects may be more likely in older adults and those who are overweight, malnourished, or debilitated. Long-term use of opioid medication may affect fertility (ability to have children) in men or women. It is not known whether opioid effects on fertility are permanent. Common side effects include: ?? dizziness, drowsiness, feeling tired; ?? feelings of extreme happiness or sadness; ?? nausea, vomiting, stomach pain; ?? constipation; or ?? headache. This is not a complete list of side effects and others may occur. Call your doctor for medical advice about side effects. You may report side effects to FDA at 2-830-FDA-8969. What other drugs will affect acetaminophen and oxycodone? You may have breathing problems or withdrawal symptoms if you start or stop taking certain other medicines. Tell your doctor if you also use an antibiotic, antifungal medication, heart or blood pressure medication, seizure medication, or medicine to treat HIV or hepatitis C. Opioid medication can interact with many other drugs and cause dangerous side effects or . Be sure your doctor knows if you also use: ?? cold or allergy medicines, bronchodilator asthma/COPD medication, or a diuretic ('water pill'); ?? medicines for motion sickness, irritable bowel syndrome, or overactive bladder; ?? other narcotic medications--opioid pain medicine or prescription cough medicine; ?? a sedative like Valium--diazepam, alprazolam, lorazepam, Xanax, Klonopin, Versed, and others; ?? drugs that make you sleepy or slow your breathing--a sleeping pill, muscle relaxer, medicine to treat mood disorders or mental illness; ?? drugs that affect serotonin levels in your body--a stimulant, or medicine for depression, Parkinson's disease, migraine headaches, serious infections, or nausea and vomiting. This list is not complete. Other drugs may affect acetaminophen and oxycodone, including prescription and qltp-qoo-bfpaswy medicines, vitamins, and herbal products. Not all possible interactions are listed here. Where can I get more information? Your doctor or pharmacist can provide more information about acetaminophen and oxycodone. Remember, keep this and all other medicines out of the reach of children, never share your medicines with others, and use this medication only for the indication prescribed. Every effort has been made to ensure that the information provided by [employer]. ('[employer]') is accurate, up-to-date, and complete, but no guarantee is made to that effect. Drug information contained herein may be time sensitive. [employer] information has been compiled for use by healthcare practitioners and consumers in the [place] and therefore [employer] does not warrant that uses outside of the [place] are appropriate, unless specifically indicated otherwise. [employer] drug information does not endorse drugs, diagnose patients or recommend therapy. [employer] drug information is an informational resource designed to assist licensed healthcare practitioners in caring for their patients and/or to serve consumers viewing this service as a supplement to, and not a substitute for, the expertise, skill, knowledge and judgment of healthcare practitioners. The absence of a warning for a given drug or drug combination in no way should be construed to indicate that the drug or drug combination is safe, effective or appropriate for any given patient. [employer] does not assume any responsibility for any aspect of healthcare administered with the aid of information [employer] provides. The information contained herein is not intended to cover all possible uses, directions, precautions, warnings, drug interactions, allergic reactions, or adverse effects. If you have questions about the drugs you are taking, check with your doctor, nurse or pharmacist. Copyright 1100-7656 [facility] [employer]. Version: .. Revision Date: 11/08/2019. Emergency Awareness and Preventative Care STROKE is [...] Assistance with quitting is available by contacting 7-700-ROOD-NOW. This is a free resource providing counseling, [...] This Visit (last charted value for your 10/02/2020 visit) Hematology 10/03/2020 2:48 AM WBC: 10.2 K/uL -- Normal range between ( 3.6 and 9.5 ) RBC: 4.65 Million/uL -- Normal range between ( 4.20 and 5.70 ) Hct: 41.8 % -- Normal range between ( 40.1 and 51.0 ) Hgb: 13.6 g/dL -- Normal range between ( 13.5 and 17.3 ) Platelet Count: 282 K/uL -- Normal range between ( 163 and 369 ) MCH: 29.2 pg -- Normal range between ( 25.6 and 32.2 ) MCHC: 32.5 Gram/dL -- Normal range between ( 32.2 and 36.5 ) MCV: 89.9 fL -- Normal range between ( 79.0 and 94.8 ) Slide Review: No Eos %: 0.0 % -- Normal range between ( 0.0 and 7.0 ) [place] #: 0.50 K/uL -- Normal range between ( 0.16 and 1.00 ) Eos #: 0.00 x10(3)/uL -- Normal range between ( 0.00 and 0.80 ) [place] %: 4.9 % -- Normal range between ( 3.0 and 9.0 ) Baso %: 0.2 % -- Normal range between ( 0.0 and 1.5 ) Baso #: 0.02 x10(3)/uL -- Normal range between ( 0.00 and 0.20 ) RDW: 13.2 % -- Normal range between ( 11.7 and 14.9 ) Neut %: 85.9 % -- Normal range between ( 34.0 and 71.0 ) Neut #: 8.77 K/uL -- Normal range between ( 1.56 and 6.13 ) Lymph %: 8.3 % -- Normal range between ( 19.3 and 53.1 ) Lymph #: 0.85 x10(3)/uL -- Normal range between ( 1.00 and 3.90 ) MPV: 10.1 fL -- Normal range between ( 9.4 and 12.4 ) IG#: 0.07 x10(3)/uL -- Normal range between ( 0.00 and 0.05 ) IG%: 0.70 % -- Normal range between ( 0.00 and 0.60 ) Urinalysis 09/30/2020 11:57 AM Urine Nitrite: Negative Urine Leukocyte Esterase: Negative Ur Epithelial Cells: 0-2 /HPF Urine Appearance: Clear Urine Glucose Dipstick: Negative Urine Blood Dipstick: Negative Urine Type: U CleanCatch Urine Urobilinogen Dipstick: 1.0 EU/dL Urine Protein Dipstick: Negative Urine Color: Yellow Ur WBC: 0-2 /HPF Urine Ketones Dipstick: Negative Urine pH Dipstick: 6.5 -- Normal range between ( 6.0 and 8.0 ) Urine Bilirubin Dipstick: Negative Urine Specific Eidson: 1.022 -- Normal range between ( 1.005 and 1.030 ) Microbiology 09/30/2020 12:35 PM Novel Coronavirus 2019: Negative General Chemistry 10/03/2020 11:00 AM Glucose POC2: 149 mg/dL -- Normal range between ( 70 and 110 ) Device Comment 1: Device Comment 1 10/03/2020 2:48 AM Creatinine Level: 1.20 mg/dL -- Normal range between ( 0.70 and 1.30 ) Sodium Level: 137 mmol/L -- Normal range between ( 136 and 146 ) Potassium Level: 3.5 mmol/L -- Normal range between ( 3.5 and 5.1 ) Chloride Level: 101 mmol/L -- Normal range between ( 102 and 112 ) Carbon Dioxide Level: 28 mmol/L -- Normal range between ( 21 and 32 ) Anion Gap: 12 -- Normal range between ( 9 and 20 ) Bun/Creatinine: 14.2 -- Normal range between ( 8.0 and 20.0 ) Calcium Level: 8.5 mg/dL -- Normal range between ( 8.4 and 10.1 ) eGFR : >60 mL/min/1.73m2 eGFR NonAfrican: >60 mL/min/1.73m2 Glucose Level: 146 mg/dL -- Normal range between ( 74 and 106 ) Blood Urea Nitrogen: 17 mg/dL -- Normal range between ( 7 and 22 ) Diagnostic Radiology 10/02/2020 5:[address] in OR: CR CT in OR Patient Name:TIEN GARCIA I have received and understand this information and was given the opportunity to ask questions. Patient/Aviation Electrician Name: Patient/Aviation Electrician Signature: Relationship to Patient: Clinician/Hospital Aviation Electrician Signature: Date: documented in this encounter Plan of Treatment Not on file documented as of this encounter Visit Diagnoses Not on filedocumented in this encounter Care Teams Hydrostatic Tubing Tester Relationship Specialty Start Date End Date Mary Larson MD [address] [place] [address] [place] [id number] PCP - General Family Medicine 08/26/22 documented as of this encounter
--- OUTSIDE RECORDS SUMMARY | 2025-06-16 09:41 | XMS_ITS | Encounter Summary ---
Author Organization [employer] ([place], [place], [place], [place]) Address [address] [place] [address] Care Team Providers Care Seat Covers Trimmer Name Role Phone Mumtaz Larson MD Primary Care Provider + [phone] Encounter Details Date Type Department Care Team (Late st Contact Info) Description 04/10/2022 Transcribed Document [facility] [place] Family Medicine [address] [place] [address] ProviderGabriel MD [address] [place] [address] Social History Tobacco Use Types Packs/Day Years [...] Date Macario rded Speak language other than Kosovan at home Not on file 10/29/2023 Want [...] Conversion Note - Historical Provider, - 04/10/2022 8:34 AM CDT DOUBLE HEAD MACHINE OPERATOR Attempt to Treat Entered On: 04/10/2022 8:45 EDT Performed On: 04/10/2022 8:34 EDT by ERIC TATE SLP Attempt to Treat Unable to Treat Due To : Acuity of Illness Inability to Treat Comment : Pt still requiring continuous bipap; Corpak in place with TF running - not appropriate for dysphagia tx. Will hold and recheck next service date Notification : KARLA Chery ALLISON R, DOUBLE HEAD MACHINE OPERATOR - 04/10/2022 8:44 EDT Electronically signed by Sherri [facility] Conversion Fabric Cutter Cerner at 02/01/2023 7:11 PM CDT documented in this encounter Plan of Treatment Not on file documented as of this encounter Visit Diagnoses Not on filedocumented in this encounter Care Teams Seat Covers Trimmer Relationship Specialty Start Date End Date Mumtaz Larson MD [address] [facility] [address] [place] [phone] PCP - General Family Medicine 08/26/22 documented as of this encounter
--- OUTSIDE RECORDS SUMMARY | 2025-06-16 09:41 | XMS_ITS | Encounter Summary ---
Author Organization [employer] ([place], [place], [place], [place]) Address [address] [place] [address] Care Team Providers Care Record Changer Assembler Name Role Phone Mumtaz Larson MD Primary Care Provider + [phone] Encounter Details Date Type Department Care Team (Late st Contact Info) Description 06/04/2022 Transcribed Document [facility] [place] Family Medicine [address] [place] [address] ProviderGabriel MD [address] [place] [address] Social History Tobacco Use Types Packs/Day Years [...] Date Macario rded Speak language other than Cymraes at home Not on file 10/29/2023 Want [...] Conversion Note - Historical Provider, - 06/04/2022 1:26 PM CDT Final Discharge Planning Entered On: 06/04/2022 13:28 EDT Performed On: 06/04/2022 13:26 EDT by GILBERT TODD RN-Buttonhole Facer Final Discharge Planning Discharge Arrangements : Patient Post-Acute Information Patient Name: TIEN GARCIA Gender: Male : [birth year] Age: 66 Years No Post-Acute Placement(s) Listed No Post-Acute Service(s) Listed No Cur[place]pan Referral(s) Listed Patient Offered Choice/Affiliations Explained : Yes Designation of Choice Signed : No Important Medicare Message Reviewed With : Family member Important Medicare Message Reviewed D/T : 06/04/2022 13:15 EDT Transportation Needs : Family/Friend Follow Up Appointment Scheduled : No Is Patient High/Moderate Readmission Risk? : Yes Patient/Family Notified of Plan : Yes Support Person/Pt Rep Notified of Plan : Yes Is Patient Ready for Discharge? : Yes Physician Notified Patient is Ready for Discharge? : Yes Discharge To Care Management : Home/Residential/Care Home or Self Care -01 GILBERT TODD, RN-Buttonhole Facer - 06/04/2022 13:26 EDT Final Narrative Note Final Narrative Note : To dc home with . Educated on tube feeding by [employer] rep. Cans of feeding given. Deny dc needs. to transport home and pt can transfer without difficulty. GILBERT TODD, RN-Buttonhole Facer - 06/04/2022 13:26 EDT documented in this encounter Plan of Treatment Not on file documented as of this encounter Visit Diagnoses Not on filedocumented in this encounter Care Teams Record Changer Assembler Relationship Specialty Start Date End Date Mutmaz Larson MD [address] [place] [facility] [address] [place] [id number] PCP - General Family Medicine 08/26/22 documented as of this encounter
--- OUTSIDE RECORDS SUMMARY | 2025-06-16 09:41 | XMS_ITS | Encounter Summary ---
Author Organization [employer] ([place], [place], [place], [place]) Address [address] [place] [address] Care Team Providers Care Forensic Artist Name Role Phone Mumtaz Larson MD Primary Care Provider + [phone] Encounter Details Date Type Department Care Team (Late st Contact Info) Description 04/10/2022 Transcribed Document [facility] Pulm & Critical Care Medicine [address] [facility] [address] [place] [id number] Teo Pimentel MD [address] [facility] [address] [place] [address] Social History Tobacco Use Types Packs/Day Years [...] Date Macario rded Speak language other than Sierra Leonean at home Not on file 10/29/2023 Want [...] Conversion Note - Teo Pimentel MD - 04/10/2022 4:30 PM EDT Patient: TIEN GARCIA Age: 66 [...] is of -40, vital capacity 590 mL ICU day: 3 Review of Systems Unable to obtain Health Status Current medications: Medications (41) Active Scheduled: () #NaCl 0.9% *FLUSH* inj 10 mL 10 mL, IV Push, Q12H #NaCl 0.9% *FLUSH* inj 10 mL 10 mL, IntraCATHeter, Q12H atenolol 50 mg tab 100 mg 2 Tab, Oral, Daily chlorthalidone 25 mg tab 25 mg 1 Tab, Oral, Daily diphenhydrAMINE 50 mg/1 mL inj 25 mg 0.5 mL, IV Push, Daily docusate sod 100 mg/10 mL liq [...] (APR 10 04:00) 97 (APR 09 20:00) 97 (APR 09 20:00) Mon HR 88 (APR 10 15:00) 47 (APR 09 19:00) 88 (APR 10 15:00) Resp Rate H 33 (APR 10 15:00) 16 (APR 09 19:00) H 49 (APR 10 09:03) SBP H 141 (APR 10 15:00) 108 (APR 09 22:00) H 169 (APR 10 09:00) DBP 75 (APR 10 15:00) 64 (APR 09 16:00) 87 (APR 10 06:07) MAP 101 (APR 10 15:00) 86 (APR 10 00:00) 114 (APR 10 07:00) SpO2 96 (APR 10 15:00) L 90 (APR 10 09:03) 98 (APR 09 15:47) Intake & Output Totals Last 24 Hours (7a-7a) Intake (32 Events) Medications (990.02 mL) Output (4 Events) Varela Catheter (1125 mL) Input Total: 990.02 mL Output Total: 1125 mL Balance: -134.98 mL General: Moderate distress, On bipap with 60%. Eye: Pupils are equal, round and reactive to light, Normal conjunctiva, R eye droopiness. HENT: Normocephalic, Oral mucosa is moist. Neck: Supple, No lymphadenopathy. Respiratory: dec bilateral bases, intermit accessory muscle use/abdominal use. Cardiovascular: Normal rate, Regular rhythm, No edema. Gastrointestinal: Soft, Non-tender, Non-distended, Normal bowel sounds. Integumentary: Warm, Dry, Mercedes. Neurologic: Alert, Oriented, Anxious when not on [...] Gases (Current Encounter/Past 24 Hours) pH Art 7.48 HI 04/10/2022 07:00 pCO2 Art 40.8 04/10/2022 06:36 pO2 Art 73.9 LOW 04/10/2022 07:00 HCO3 Art 30.5 HI 04/10/2022 07:00 BE Art 6.4 HI 04/10/2022 07:00 sO2 Art 96.7 04/10/2022 06:36 tHb Art 13.9 04/10/2022 06:36 FHHb 3.2 NA 04/10/2022 06:36 ctO2 18.6 NA 04/10/2022 06:36 FIO2 Art 50 NA 04/10/2022 06:36 Delivery Device Type Art NIV NA 04/10/2022 06:36 Temperature, F Art 98.6 NA 04/10/2022 06:36 Art Blood Gas (ABG) Site Right Radial NA 04/10/2022 06:36 Acceptable Arturo's Test Art Acceptable NA 04/10/2022 06:36 Ventilator Mode Art NPPV 18/6 NA 04/10/2022 06:36 Set Rate Art 16.0 NA 04/10/2022 06:36 Respiratory Rate Art 18.0 NA 04/10/2022 06:36 Comment Art supine NA 04/10/2022 06:36 ABG Num of Draw Attempts 1 NA 04/10/2022 06:36 PaO2/FiO2 calculated 148 NA 04/10/2022 06:36 Radiology Results (Last 48 hours) [id number] -- 04/06/2022 15:42 CR Repo Gastric Feed Tube (04/08/2022 16:45) Result: ATTEMPTED FEEDING TUBE ADVANCEMENT UNDER FLUOROSCOPYFLUORO TIME: 0.1 minutes.FLUORO Films: 1.HISTORY: Malnutrition.ATTENDING RADIOLOGIST: Dr. Hernández.PHYSICIAN PRODUCT PROMOTER RETAIL PET: Mayelin Valdez PA-C.FINDINGS: The patient's existing feeding [...] 1. 5 04/10 NIF -40, VC .590 Impression and Plan Pulmonary Acute Respiratory Failure, [...] (NIF and vital capacity) Q 8 H RN to add precedex for goal RASS 0 On Seroquel (home med) CT chest with contrast today as recommended by neuro Keep HOB elevated Neuro following MRI pending (patient is currently unable to tolerate laying flat) Acetylcholine sales engineering manager studies pending On Mestinon Also receiving Solumedrol and IVIG Glycemic control: on correction insulin, target glucose 140-180 mg/dL Prophylaxis: None scheduled, will add Heparin and Pepcid Insert PICC line At risk for respiratory complications AM orders placed CODE STATUS: FULL CODE Disposition: ICU 77 minutes critical care time excluding procedures. Discussed with LYNDSAY, RN, Dr. Mccullough (neurologist) and during multidisciplinary rounds. documented in this encounter Plan of Treatment Not on file documented as of this encounter Visit Diagnoses Not on filedocumented in this encounter Care Teams Forensic Artist Relationship Specialty Start Date End Date Mumtaz Larson MD [address] [facility] [address] [place] [phone] PCP - General Family Medicine 08/26/22 documented as of this encounter
--- OUTSIDE RECORDS SUMMARY | 2025-06-16 09:41 | XMS_ITS | Encounter Summary ---
Author Organization [employer] ([place], [place], [place], [place]) Address [address] [place] [address] Care Team Providers Care E Business Consultant Name Role Phone Mumtaz Larson MD Primary Care Provider + [phone] Encounter Details Date Type Department Care Team (Late st Contact Info) Description 10/02/2020 Transcribed Document [facility] [place] Family Medicine [address] [place] [address] ProviderGabriel MD [address] [place], [place] [address] Social History Tobacco Use Types Packs/Day Years [...] - Historical ProviderMD - 10/02/2020 5:08 PM LENS GENERATOR Evaluation, Occupational Therapy Entered On: 10/03/2020 10:24 EST Performed On: 10/03/2020 9:26 EST by TOSHIA OSBORN, OTR/L General Information, OT Visit Type, OT : Initial evaluation Patient Orders : Order Date Order Ordering 10/02/2020 17:09 Occupational Therapy Evaluation and Treatme Ordered By: RUSLAN FRAZIER MD-SNU Active Diagnoses : 10/03/2020 12:00 Spondylolisthesis, lumbar region 10/02/2020 12:00 Spondylolisthesis, site unspecified Therapy Diagnosis, OT : decreased I with ADLs due to weakness and pain Onset of Problem, OT : 10/02/2020 EST Admission Date : 10/02/2020 06:11 Co-treated by, OT : Physical Therapist Personal Devices : Personal Devices No Devices Recorded Assistive Devices : Assistive Devices No Devices Recorded General Information Comment, OT : PATIENT HERE FOR L4-5 LUMBAR FUSION TOSHIA OSBORN, YADIRAR/L 10/03/2020 10:20 EST General Status Patient Received Status : Supine in bed Treatment Start Time : 10/03/2020 9:11 EST Patient Left Status : Sitting edge of bed, All needs met and within reach RN/PCT Informed Comment : Mumtaz ACOSTAal this AM Treatment End Time : 10/03/2020 9:26 EST Treatment Time : 15 Minute(s) TOSHIA OSBORN OTR/L 10/03/2020 10:20 EST History and Environment, OT Living Situation, Therapy : Home Patient Lives With : Adult Child/Children, Family member(s), Spouse Persons Assisting Patient at Home : Child/Children, Spouse Professional Skilled Services : None Persons Providing Information : Patient Home Equipment, Therapy : None Home Setup : Multi-level home Stairs : Yes Stair Location(s) : Inside, Outside Inside Stairs, Number of Steps : 13 Outside Stairs, Number of Steps : 3 Railing Inside : Yes Railing Outside : Yes TOSHIA OSBORN, YADIRAR/L 10/03/2020 14:08 EST Prior LOF Bathing, OT : Independent Prior LOF Bed Mobility : Independent Prior LOF Upper Body Dressing, OT : Independent Prior LOF Lower Body Dressing, OT : Independent Prior LOF Toileting : Independent Prior LOF Transfer : Independent Prior LOF Grooming, OT : Independent Prior LOF for IADLs, OT : Independent TOSHIA OSBORN OTR/L 10/03/2020 14:08 EST Upper Extremity Upper Extremity Dominance : Right Right UE Active ROM : WFL Right UE Strength : WFL Left UE Active ROM : WFL Left UE Strength : WFL TOSHIA OSBORN OTR/L 10/03/2020 14:08 EST Self Care/Home Management, OT Self Feeding Assist Level, OT : Independent, complete Grooming Assist Level, OT : Independent, complete Bathing Assist Level, OT : Assist, minimal Upper Body Dressing Assist Level, OT : Supervision or set-up Lower Body Dressing Assist Level, OT : Supervision or set-up Lower Body Dressing Comment, OT : to don pants Toileting Assist Level : Supervision or set-up Toilet Transfer Assist Level : Supervision or set-up Toilet Transfer Device : Belt, gait TOSHIA OSBORN, [facility]/10/03/2020 14:08 EST Functional Mobility Mobility Grid Bed Roll Left : Supervision/set-up Bed Roll Right : Supervision/set-up Bed Scooting : Supervision/set-up Supine to Sit : Supervision/set-up Sit to Stand : Supervision/set-up Stand to Sit : Supervision/set-up TOSHIA OSBORN, [facility]/10/03/2020 14:08 EST Neurological/Sensory Overall Sensory Response : Impaired Overall Sensory Response Comment : BLEs pain from back TOSHIA OSBORN, [facility]/10/03/2020 14:08 EST Cognition Assessment, OT Orientation : Oriented x 4 Cognition Assessment, OT : Intact TOSHIA OSBORN, [facility] 10/03/2020 14:08 EST Visual/Perceptual/Vestibular, OT Vision Assessment, OT : Intact TOSHIA OSBORN, [facility]10/03/2020 14:08 EST Indication Assessment, OT Occupational Therapy Indicated : Yes Problem List, OT : Impaired, bed mobility, Impaired, activities daily living, Impaired, endurance tolerance, Impaired functional mobility Potential Barriers, OT : None evident Rehabilitation Potential, OT : Good TOSHIA OSBORN, [facility]/2020 14:08 EST Plan of Care, OT OT Tx Plan/Goals Established w Patient : Yes OT Frequency Rehab : Five days per week OT Duration Rehab : Fourteen days OT Treatments Planned : Activities of daily living, Therapeutic activities TOSHIA OSBORN, [facility]/03/2020 14:08 EST Treatment Note Subjective Comment : Agreeable Patient's Response to Treatment : Resting at EOB with breakfast tray, no complaints. Additional Objective Information : Came to EOB with log roll technique and supervision. Completed LB dressing task with set up and no AE (declines AE). Stood and ambulated to gym with gait belt only and close supervision. Completed stairs. BAck to room with needs in reach and call light. Assessment : No goals written as patient is scheduled for DC today. If pt remains inpatient we will determine goals at that time TOSHIA OSBORN, OTR/L - 10/03/2020 14:08 EST Pain Assessment Pain Scaled Used : 0-10 Pain scale Pain Score During-Intervention : 6 Location : Back, Incisional TOSHIA OSBORN, OTR/L - 10/03/2020 14:08 EST Image 1 - Images currently included in the form version of this document have not been included in the text rendition version of the form. Anticipated Discharge Needs, OT/PT Anticipated Discharge to : Home, independently, Home, with family care TOSHIA OSBORN, OTR/L - 10/03/2020 14:08 EST [place] OT Charges OT Eval Low Complexity : 1 TOSHIA OSBORN OTR/L - 10/03/2020 14:08 EST Electronically signed by Interface, [facility] Conversion House Parent Cerner at 02/01/2023 7:08 PM CDT documented in this encounter Plan of Treatment Not on file documented as of this encounter Visit Diagnoses Not on filedocumented in this encounter Care Teams E Business Consultant Relationship Specialty Start Date End Date Mumtaz Larson MD [address] [facility] [address] [place] [phone] PCP - General Family Medicine 08/26/22 documented as of this encounter
--- OUTSIDE RECORDS SUMMARY | 2025-06-16 09:41 | XMS_ITS | Encounter Summary ---
Author Organization [employer] ([place], [place], [place], [place]) Address [address] [place] [address] Care Team Providers Care Stone Carver Name Role Phone Mumtaz Larson MD Primary Care Provider + [phone] Encounter Details Date Type Department Care Team (Late st Contact Info) Description 10/03/2020 Transcribed Document [facility] [place] [address] [place] [address] ProviderGabriel MD [address] [place], [place] [address] Social History Tobacco Use Types Packs/Day Years Used Date Smoking Tobacco: Never Assessed Sex and Gender Information Value Date Recorded Sex Assigned at Male 05/13/2022 12:59 PM CDT Legal Sex Male 1:44 PM CDT Gender Identity Male 05/13/2022 12:59 PM CDT Sexual Orientation Not on file documented as of this encounter Miscellaneous Notes * Cerner Conversion Note - Gabriel ProviderMD - 10/03/2020 10:06 AM LOT[employer] NOTES DEVELOPER [facility] Authorization Entered On: 10/03/2020 10:06 EST Performed On: 10/03/2020 10:06 EST by Jenise Hoover Rn-Utilization Review Primary Insurance Authorization Authorization and Policy Numbers : Insurance 1 Health Plan: MEDICARE Policy Number: [id number] Authorization Number: Insurance 2 Health Plan: [facility] Policy Number: [id number] Authorization Number: NPR Insurance Primary Name : MEDICARE Authorized Service Begin Date-Primary : 10/02/2020 EST Historical Authorization Comments-Primary : No Authorization Comments Found Jenise Hoover, Rn-Utilization Review - 10/03/2020 10:06 EST Electronically signed by Sher[facility] Conversion [employer] Brakes Bonder Cerner at 02/01/2023 6:47 PM CDT documented in this encounter Plan of Treatment Not on file documented as of this encounter Visit Diagnoses Not on filedocumented in this encounter Care Teams Stone Carver Relationship Specialty Start Date End Date Mumtaz Larson MD [address] [facility] [address] [place] [phone] PCP - General Family Medicine 08/26/22 documented as of this encounter
--- OUTSIDE RECORDS SUMMARY | 2025-06-16 09:41 | XMS_ITS | Encounter Summary ---
Author Organization [facility] ([place], [place], [place], [place]) Address [address] [place] [address] Care Team Providers Care Development Advisor Name Role Phone Mumtaz Larson MD Primary Care Provider + [phone] Encounter Details Date Type Department Care Team (Late st Contact Info) Description 04/14/2022 Transcribed Document [facility] [place] [address] [place] [address] ProviderGabriel MD [address] [place] [address] Social History Tobacco Use Types Packs/Day Years [...] Date Macario rded Speak language other than Omani at home Not on file 10/29/2023 Want [...] Conversion Note - Historical Provider, - 04/14/2022 11:40 AM CDT On Going Discharge Planning Entered On: 04/14/2022 11:45 EDT Performed On: 04/14/2022 11:40 EDT by CLAYTON RYAN, RN-Cook RoastCarbon Lamp Cleaner Progress Note Discharge Arrangements : Patient Post-Acute Information Patient Name: TIEN GARCIA Gender: Male : [birth year] Age: 66 Years No Post-Acute Placement(s) Listed No Post-Acute Service(s) Listed No Curaspan Referral(s) Listed Discharge Options Discussed with Patient : Acute rehabilitation, Home Health, jail Barriers to Discharge Identified : Clinical Condition of Patient Patient Discharge Goal : Inpatient rehabilitation facility CLAYTON RYAN, RN-Cook Roast - 04/14/2022 11:40 EDT Narrative Progress Note Narrative Progress Note : HD 8. ELOS 6. RAR: moderate. MG crisis. resp failure. anxiety much improved with meds. bipap 40%/ 02 4l nc. zosyn iv. corpak tube feeds. ST re-eval today. PT/OT: steps. bed to chair postition. dcp: likely rehab vs hh. early referral [facility]: confirmed they are following & [facility]. spoke with Mr. Garcia. discussed dc planning options. rehab likely. Historical Progress Note : HD 7. ELOS 6. RAR: moderate. MG crisis. resp failure. continuous bipap 40 to optiflow 50/40. zosyn iv. corpak tube feeds. PT/OT: side step to HOB. dcp: likely rehab vs hh. early referral [facility] & [facility]. sent [facility]. CLAYTON RYAN, RN-Cook Roast - 04/13/22 11:55:38 HD 4/ELOS 6/RRS moderate- on continuous bipap, TF via Corpak, Ue=757, FQI=416, CIO=455, IVIG, IV Solumedrol BID, IV K+ Phosphate x2 doses, IV Zosyn q6, PT/OT/ST following, DCP: home with possible HH vs rehab pending respiratory requirements/mobility. CHADWICK ALANIZ, Cement Crusher Operator - 04/10/22 17:20:37 CLAYTON RYAN, RN-Cook Roast - 04/14/2022 11:40 EDT Electronically signed by [facility], [facility] Conversion Steel Placer Cerner at 02/01/2023 6:48 PM CDT documented in this encounter Plan of Treatment Not on file documented as of this encounter Visit Diagnoses Not on filedocumented in this encounter Care Teams Development Advisor Relationship Specialty Start Date End Date Mumtaz Larson MD [address] [facility] [address] [place] [id number] PCP - General Family Medicine 08/26/22 documented as of this encounter
--- OUTSIDE RECORDS SUMMARY | 2025-06-16 09:41 | XMS_ITS | Encounter Summary ---
Author Organization [employer] ([place], [place], [place], [place]) Address [address] [place] [address] Care Team Providers Care Shop Mechanic Helper Name Role Phone Mumtaz Larson MD Primary Care Provider + [phone] Encounter Details Date Type Department Care Team (Late st Contact Info) Description 06/04/2022 Transcribed Document [facility] [place] Family Medicine [address] [place] [address] ProviderGabriel MD [address] [place] [address] Social History Tobacco Use Types Packs/Day Years [...] Date Macario rded Speak language other than Moroccan at home Not on file 10/29/2023 Want [...] Conversion Note - Historical Provider, - 06/04/2022 10:10 AM CDT Clinical Dietitian Note Entered On: 06/04/2022 10:10 EDT Performed On: 06/04/2022 10:10 EDT by Vickie James Dietitijayy Clinical Dietitian Note Clinical Dietitian Note : 06/04: RN called RD, reported pt had diarrhea all night last night. TF was held. Requesting alternative TF recs. RD to modify to TwoCal HN and bolus feeds to prepare for d/c home (? Today per MD note). Will modify orders. Est nutrient needs: 7055-6835 kcals (MSJ*1.2AF), 90-110g pro (1.0-1.2 g/kg) 1. [...] meet est needs 2. Advance diet per ADOBE BALL MIXER and MD + 60g CHO restriction. RD [...] formula Goal: Glu 70-180 High nutrition risk Vickie James Dietitian - 06/04/2022 10:10 EDT documented in this encounter Plan of Treatment Not on file documented as of this encounter Visit Diagnoses Not on filedocumented in this encounter Care Teams Shop Mechanic Helper Relationship Specialty Start Date End Date Mumtaz Larson MD [address] [facility] [address] [place] [id number] PCP - General Family Medicine 08/26/22 documented as of this encounter
--- OUTSIDE RECORDS SUMMARY | 2025-06-16 09:41 | XMS_ITS | Encounter Summary ---
Author Organization [employer] ([place], [place], [place], [place]) Address [address] [place] [address] Care Team Providers Care Table Assembler Name Role Phone Mumtaz Larson MD Primary Care Provider + [phone] Encounter Details Date Type Department Care Team (Late st Contact Info) Description 06/04/2022 Transcribed Document [facility] [place] [address] [place] [address] ProviderGabriel MD [address] [place] [address] Social History Tobacco Use Types Packs/Day Years [...] Date Macario rded Speak language other than Bhutanese at home Not on file 10/29/2023 Want [...] Conversion Note - Historical Provider, - 06/04/2022 10:17 AM CDT On Going Discharge Planning Entered On: 06/04/2022 10:18 EDT Performed On: 06/04/2022 10:17 EDT by Kristen Matias Rn-News CommentatorGreen Building Engineer Progress Note Discharge Arrangements : Patient Post-Acute Information Patient Name: TIEN GARCIA Gender: Male : [birth year] Age: 66 Years No Post-Acute Placement(s) Listed No Post-Acute Service(s) Listed No Curaspan Referral(s) Listed Discharge Options Discussed with Patient : Discharge transportation, Home Health, Short term rehabilitation Barriers to Discharge Identified : Clinical Condition of Patient Barriers to Discharge Unresolved : Clinical Condition of Patient Patient Discharge Goal : Home health care Patient Offered Choice/Affiliations Explained : Yes Designation of Choice Signed : No List/Info Provided Pt/Fam/Support Person : Home health Were Referrals Sent to Post Acute Providers : No [facility] Quality Web Info Shared w Pt/Fam : No Does the Patient have a Floor to SNF Benefit? : No Referral Indicators For Complex SWK Interventions : Other: n/a Is the Patient Meeting Medical Necessity : Yes Physician Agreeable to Move Forward with D/C Plan? : Yes Did you Attend Multidisciplinary Rounds? : No Kristen Matias Rn-News Commentator - 06/04/2022 10:17 EDT Narrative Progress Note Narrative Progress Note : Patient lives at home with spouse, and is iADLs at baseline. Patient/spouse drive to appointments as needed. Has a cane and a bipap, provided by [employer]. Patient has no history with HH or STR. Needs HH and TFs at discharge, has no preference which companies are used. Agreeable to [facility] and [facility]. Referrals made. Patient's TFs are covered at 100% per [facility] rep. PLAN: Home with home health (referral sent to [facility] for wound care and STEAM BOX TENDER) and tube feeds (referral sent to [facility] - covered at 100%), spouse to transport. Anticipate dc 06/05; HIGH readmission risk CM will continue to follow. Kristen Matias Rn-News Commentator - 06/04/2022 10:17 EDT Electronically signed by [facility] Conversion Container Washer Cerner at 02/01/2023 6:51 PM CDT documented in this encounter Plan of Treatment Not on file documented as of this encounter Visit Diagnoses Not on filedocumented in this encounter Care Teams Table Assembler Relationship Specialty Start Date End Date Mumtaz Larson MD [address] [place] [facility] [address] [place] [id number] PCP - General Family Medicine 08/26/22 documented as of this encounter
--- OUTSIDE RECORDS SUMMARY | 2025-06-16 09:41 | XMS_ITS | Encounter Summary ---
Author Organization [employer] ([place], [place], [place], [place]) Address [address] [place] [address] Care Team Providers Care Nut Cracker Name Role Phone Mumtaz Larson MD Primary Care Provider + [phone] Encounter Details Date Type Department Care Team (Late st Contact Info) Description 10/02/2020 Transcribed Document [facility] [place] [address] [place] [address] ProviderGabriel MD [address] [place], [place] [address] Social History Tobacco Use Types Packs/Day Years [...] - Gabriel ProviderMD - 10/02/2020 3:30 PM PRE CODER [facility] Main OR PACU Summary Primary Physician: RUSLAN FRAZIER MD-SNU Finalized Date/Time: 10/02/20 18:36:57 Pt. Name: TIEN GARCIA Wilmer Delcid/Sex: 1955 Male Med Rec #: [id number] Physician: RUSLAN FRAZIER MD-SNU Financial #: [id number] Pt. Type: I Room/Bed: 645/1 Admit/Disch: 10/02/20 06:11:00 - Institution: [facility] Main OR PACU I Case Times Entry 1 In PACU I 10/02/20 17:18:00 Ready for PACU 10/02/20 18:33:00 Discharge Discharge from PACU 10/02/20 18:33:00 I Last Modified By: Lina Albarran Rn 10/02/20 18:36:39 Finalized By: Lina Albarran, Rn Document Signatures Signed By: Lina Albarran Rn 10/02/20 18:36 Electronically signed by Sherri [facility] Conversion Barratte Operator Cerner at 02/01/2023 7:05 PM CDT documented in this encounter Plan of Treatment Not on file documented as of this encounter Visit Diagnoses Not on filedocumented in this encounter Care Teams Nut Cracker Relationship Specialty Start Date End Date Mumtaz Larson MD [address] [facility] [address] [place] [id number] PCP - General Family Medicine 08/26/22 documented as of this encounter
--- OUTSIDE RECORDS SUMMARY | 2025-06-16 09:41 | XMS_ITS | Encounter Summary ---
Author Organization [employer] ([place], [place], [place], [place]) Address [address] [place] [address] Care Team Providers Care Scaffold Builder Name Role Phone Mumtaz Larson MD Primary Care Provider + [phone] Encounter Details Date Type Department Care Team (Late st Contact Info) Description 04/14/2022 Transcribed Document [facility] Radiology [address] [place] [address] Yanni Menendez MD [address] [place] [address] [place] [address] Social History Tobacco Use Types Packs/Day Years [...] Date Macario rded Speak language other than Malay at home Not on file 10/29/2023 Want [...] Conversion Note - Yanni Menendez MD - 04/14/2022 11:00 AM EDT Patient: TIEN GARCIA Age: 66 years Sex: Male : 1955 Associated Diagnoses: None Author: YANNI MENENDEZ MD-INT Subjective Date of encounter 04/14/22 Patient is awake and alert at bedside He denies pain No BM yet. Wants dotson removed. He is off bipap and now on HF nasal cannula. Objective VS/Measurements Vitals Signs (last 24 hrs) Last Charted Minimum Maximum Mon HR 129 (APR 14 16:00) 93 (APR 14 02:00) 146 (APR 14 14:00) Resp Rate H 37 (APR 14 16:00) 16 (APR 13 20:43) H 41 (APR 14 08:15) SBP 108 (APR 14 14:00) L 78 (APR 14 11:00) 121 (APR 13 18:00) DBP 66 (APR 14 14:00) L 55 (APR 14 11:00) 89 (APR 14 07:00) MAP 80 (APR 14 14:00) 62 (APR 14 11:00) 101 (APR 14 07:00) SpO2 L 91 (APR 14 16:00) L 73 (APR 14 13:00) 98 (APR 13 18:00) General: Alert and oriented, No acute distress. Eye: Extraocular movements are intact, Normal conjunctiva, ptosis . HENT: Normocephalic. Neck: Supple, Non-tender. Respiratory: Lungs are clear to auscultation, Breath sounds are equal. Cardiovascular: Normal rate, Regular rhythm, No murmur. Gastrointestinal: Soft, Non-tender, Non-distended, Normal bowel sounds, Corpak. Musculoskeletal: No tenderness. Integumentary: Warm, No rash. Neurologic: Alert, Oriented, No focal deficits. Psychiatric: Cooperative, Appropriate mood & affect. Review / Management Labs reviewed. Impression and Plan Myasthenia Gravis crisis AchR antibodies 7.3, blocking 53 CT chest B/L consolidation, no thymoma per report Had IVIG and steroids and now on po steroids and mestinon Acute hypoxic respiratory failure Aspiration pneumonia likely secondary from neuro musculare involvement from myasthenia Respiratory PCR negative, CXR noted CT chest 04/09 B/L consolidation Breathing treatment PRN weaning off bipap and on HF NC now Elevated LFT D/C Tylenol hepatitis panel not reactive, Hepatic US noted Moderate enlarged fatty infiltrated liver Dysphagia Secondary to myasthenia gravis Speech therapy to evaluate and now on corpak feeds Hypernatremia, improving Aspiration pneumonia Sputum culture IV Zosyn Hypokalemia and hypophosphatemia Replaced H/O Prostate cancer Flomax Hypothyroidism Restart levothyroxine Check TSH WNL Diabetes mellitus Sliding-scale insulin Monitor blood sugar HTN On norvasc and diuretic If heart rate better resume atenolol at lower dose (had bradycardia while on precedex) Use IV hydralazine PRN Restless leg syndrome Resume home medications DVT prophylaxis sc heparin Disposition: Patient with myasthenia admitted with dysphagia blurry vision, secondary to myasthenia gravis, neurology following, started on pyridostigmine, steroid. Currently off bipap and awaiting stabilisation of resp status and also on tube feedings. Speach to evaluate.Final discharge plans TBD and discussed with patient and and nursing and pulm franchise field consultant and time spent with above 30 minutes documented in this encounter Plan of Treatment Not on file documented as of this encounter Visit Diagnoses Not on filedocumented in this encounter Care Teams Scaffold Builder Relationship Specialty Start Date End Date Mumtaz Larson MD [address] [place] [facility] [address] [place] [phone] PCP - General Family Medicine 08/26/22 documented as of this encounter
--- OUTSIDE RECORDS SUMMARY | 2025-06-16 09:41 | XMS_ITS | Encounter Summary ---
Author Organization [employer] ([place], [place], [place], [place]) Address [address] [place] [address] Care Team Providers Care Project Scientist Name Role Phone Mumtza Larson MD Primary Care Provider + [phone] Encounter Details Date Type Department Care Team (Late st Contact Info) Description 10/03/2020 Transcribed Document [facility] [place] Family Medicine [address] [place] [address] ProviderGabriel MD [address] [place], [place] [address] Social History Tobacco Use Types Packs/Day Years Used Date Smoking Tobacco: Never Assessed Sex and Gender Information Value Date Recorded Sex Assigned at Male 05/13/2022 12:59 PM CDT Legal Sex Male 1:44 PM CDT Gender Identity Male 05/13/2022 12:59 PM CDT Sexual Orientation Not on file documented as of this encounter Miscellaneous Notes * Cerner Conversion Note - Gabriel ProviderMD - 10/03/2020 5:17 PM REGULATORY TECHNICIAN Nursing Discharge Summary Entered On: 10/03/2020 17:18 EST Performed On: 10/03/2020 17:17 EST by Jolie Rizzo Lpn Discharge Documentation Discharge Date/Time : 10/03/2020 14:43 EST Patient Disposition, General : Discharge Discharge To : Home with ambulatory/outpatient follow-up IV Discontinued : Yes Medications Given to Patient : Yes Jolie Rizzo Lpn - 10/03/2020 17:17 EST Electronically signed by Sherri [facility] Conversion Neonatal Icu Coordinator Cerner at 02/01/2023 6:48 PM CDT documented in this encounter Plan of Treatment Not on file documented as of this encounter Visit Diagnoses Not on filedocumented in this encounter Care Teams Project Scientist Relationship Specialty Start Date End Date Mumtaz Larson MD [address] [facility] [address] [place] [address] PCP - General Family Medicine 08/26/22 documented as of this encounter
--- OUTSIDE RECORDS SUMMARY | 2025-06-16 09:41 | XMS_ITS | Encounter Summary ---
Author Organization [employer] ([place], [place], [place], [place]) Address [address] [place] [address] Care Team Providers Care Geospatial Analyst Name Role Phone Mumtaz Larson MD Primary Care Provider + [phone] Encounter Details Date Type Department Care Team (Late st Contact Info) Description 04/10/2022 Transcribed Document [facility] [place] Family Medicine [address] [place] [address] ProviderGabriel MD [address] [place] [address] Social History Tobacco Use Types Packs/Day Years [...] Date Macario rded Speak language other than Scottish at home Not on file 10/29/2023 Want [...] Conversion Note - Historical Provider, - 04/10/2022 3:00 AM CDT Nutrition Assessment Entered On: 04/10/2022 8:55 EDT Performed On: 04/10/2022 8:55 EDT by Maryanne Moon Dietitian Nutrition Assessment Nutrition Assessment Reason : Follow Up Maryanne Moon Dietitian - 04/10/2022 8:55 EDT Current Nutrition Regimen Comment : 04/10: High f/u. Pt was transferred to the unit on 04/08 d/t increased work of breathing and fatigue. He is currently on continuous bipap. SUMMER LAW CLERK following and pt remains NPO at this time. He had a corpak placed, which terminates in the stomach. EN is running @ 20ml/hr. Discussed pt with pulmonary and he is a high risk for intubation. 04/07: c/s- EN recs. Pt is a 66 y/o male admitted from an OSH for neuro eval. He had c/o slurred speech and trouble swallowing. Pt was recently treated for acute viral meningitis. SUMMER LAW CLERK evaluated and recommended NPO status at this time. Plans for corpak placement today and will start EN. Brain MRI pending, but pt was unable to lay flat. Dx: possible myasthenia gravis, dysphagia PMH: bronchitis, DM, GERD, [place], HTN, prostate cancer Labs: Na 147, K 3.0, Glu 152, BUN 25, Cr 0.6, AST 129, ALT 179, Phos 2.0, FSB/152/157 Meds: Pepcid, heparin, SSI, steroid, K phos, abx Diet: NPO EN: Glucerna 1.5 @ GI: LBM 03/29 +corpak (stomach) Skin: no breakdown noted Ht: 6'1 Wt: 235#/106.8kg (04/07)229#/104.1kg (04/09) BMI: 31.1 IBW: 184#, 128% Est nutrient needs: 0634-3237 kcals (MSJ *1.2AF), 85-105g pro (0.8-1.0 g/kg) Maryanne Moon Dietitian - 04/10/2022 10:38 EDT Nutrition Diagnoses Oral or Nutrition Support Intake : Inadequate oral intake Oral or Nutr Support Intake Related To : dysphagia, respiratory distress Oral or Nutr Support Intake Evidenced by : need for EN Oral or Nutrition Support Intake Status : Active Maryanne Moon Dietitian - 04/10/2022 10:38 EDT Nutrition Interventions Enteral/Parenteral Nutrition : Continue current enteral nutrition regimen Maryanne Moon Dietitian - 04/10/2022 10:38 EDT Monitoring/Evaluation Enteral Nutrition Intake : Tube Feeding Tolerance Weight Status : Weight Maintanence Gastrointestinal Function : Bowel Function Maryanne Moon Dietitian - 04/10/2022 10:38 EDT Nutrition Recommendations Dietitian Recommendations : 1. Continue Glucerna 1.5 @ 20ml/hr. Once corpak is post-pyloric, AAT to goal rate of 65ml/hr (2145 kcals, 118g pro). FW per MD. Goal: meet est needs 2. If feasible, advance diet per SUMMER LAW CLERK and MD + 60g CHO restriction. RD to assess for supplements Goal: tolerate PO diet advancement 3. Monitor weight 1-2x weekly Goal: prevent unintentional wt changes 4. Optimize glucose level and adjust insulin PRN Goal: glu 70-180 High nutrition risk Maryanne Moon Dietitian - 04/10/2022 10:40 EDT documented in this encounter Plan of Treatment Not on file documented as of this encounter Visit Diagnoses Not on filedocumented in this encounter Care Teams Geospatial Analyst Relationship Specialty Start Date End Date Mumtaz Larson MD [address] [place] [facility] [address] [place] [id number] PCP - General Family Medicine 08/26/22 documented as of this encounter
--- OUTSIDE RECORDS SUMMARY | 2025-06-16 09:41 | XMS_ITS | Encounter Summary ---
Author Organization [employer] ([place], [place], [place], [place]) Address [address] [place] [address] Care Team Providers Care Embroidery Operator Name Role Phone Mumtaz Larson MD Primary Care Provider + [phone] Encounter Details Date Type Department Care Team (Late st Contact Info) Description 04/14/2022 Transcribed Document [facility] Pulm & Critical Care Medicine [address] [facility] [address] [place] [id number] Teo Pimentel MD [address] [facility] [place] [address] Social History Tobacco Use Types Packs/Day Years [...] Conversion Note - Teo Pimentel MD - 04/14/2022 3:42 PM EDT Patient: TIEN GARCIA Age: 66 [...] and frequent observation. We will continue with Shaila. Chest x-ray reviewed independently still showing left [...] output for overall fluid balance of +654ml. 04/12: Patient in bed, awake and alert. Following commands. States he is doing well and currently has no complaints. Denies any further weakness. On BiPAP /, FiO2 40%. Good urine output with negative fluid balance. Last NIF -10, VC 400. Hemodynamically stable. Currently afebrile. Reviewed chest x-ray independently, bibasilar atelectasis. VC 900mL 04/13: Awake, resting in bed, on Bipap 40%. Follows commands, appears stronger than prior. RN attempted to wean off to Optflo for breaks, patient became highly anxious even with O2 sats 98%. Neuro following. Hemodynamically stable. NO vasopressors. Cr 0.80, good UOP, -1739 balance. WBC 5.1 no fevers. Tolerating tube feeds. No BM documented. VC 1.0L. 04/14: Awake and much more calm today. Weaned down to 4L NC, 95%. VC 1.25L and NIF 40. Follows all commands. Hemodynamically stable. No vasopressors. Cr 0.90, good UOP, -3268 balance. WBC 6.4, no fevers. Tube feeds per Corpak. BM+ today. ICU day: 6 PICC 04/09 Review of Systems Unable to obtain Health Status Current medications: Medications (52) Active Scheduled: (22) #NaCl 0.9% *FLUSH* inj 10 mL 10 mL, IV Push, Q12H #NaCl 0.9% *FLUSH* inj 10 mL 10 mL, IntraCATHeter, Q12H allopurinol 300 mg tab 300 mg 1 Tab, Oral, Daily amLODIPine 5 mg tab 5 mg 1 Tab, Oral, Daily bisacodyl 10 mg supp 10 mg 1 Supp, Rectal, 1-Time chlorthalidone 25 mg tab 25 mg 1 Tab, Oral, Daily docusate sod 100 mg/10 mL liq 100 mg 10 mL, Oral, BID DULoxetine DR 30 mg cap 120 mg 4 Cap, Oral, Daily famotidine 20 mg/2 mL inj 20 mg 2 mL, IV Push, BID fenofibrate 145 mg tab 145 mg 1 Tab, Oral, Daily guaiFENesin 100 mg/5 mL liq 15 mL 200 mg 10 mL, Oral, Q6H heparin 5,000 units/1 mL inj 5,000 Units 1 mL, SubCutaneous, Q8H insulin regular 1 unit/0.01 mL inj 3mL Scale C, SubCutaneous, Q6H lactulose 20 g/30 mL oral liq 20 Gram 30 mL, Oral, BID levothyroxine 50 mcg tab 50 mcg 1 Tab, Oral, Daily oxazepam 10 mg cap 10 mg 1 Cap, Oral, BID pramipexole 0.25 mg tab 0.25 mg 1 Tab, Oral, At Bedtime predniSONE 20 mg tab 60 mg 3 Tab, Oral, Daily pyridostigmine 60 mg/5 mL liq 90 mg 7.5 mL, Oral, TID QUEtiapine 200 mg tab 400 mg 2 Tab, Oral, BID senna 8.8 mg/5 mL liq 8.8 mg 5 mL, Oral, BID tamsulosin CR 0.4 mg cap 0.4 mg 1 Cap, Oral, Daily Continuous: (1) NaCl 0.9% 1,000 mL 1,000 mL, IntraVENous, 50 mL/Hr PRN: (29) #NaCl 0.9% *FLUSH* inj 10 mL 10 mL, IV Push, See Comment acetaminophen 325 mg tab 650 mg 2 Tab, Oral, Q4H albuterol-ipratropium inh 3 mL 3 mL, Nebulized Inhalation, RT_Q6H ALPRAZolam 0.25 mg tab 0.25 mg 1 Tab, Oral, Daily alteplase + sterile water 1 mL 1 [...] hrs) Last Charted Minimum Maximum Mon HR 127 (APR 14 11:01) 93 (APR 14 02:00) 138 (APR 14 08:15) Resp Rate H 34 (APR 14:01) 16 (APR 13 20:43) H 41 (APR 14 08:15) SBP 114 (APR 14 08:00) L 82 (APR 13 23:00) H 149 (APR 13 15:00) DBP 79 (APR 14 08:00) L 56 (APR 13 23:00) H 97 (APR 13 15:00) MAP 93 (APR 14 08:00) 64 (APR 13 23:00) 118 (APR 13 15:00) SpO2 98 (APR 14 11:01) L 93 (APR 14 06:00) 98 (APR 13 16:16) Intake & Output Totals Last 24 Hours (7a-7a) Intake (22 Events) Medications (306.49 mL) Output (3 Events) Varela Catheter (3575 mL) Input Total: 306.49 mL Output Total: 3575 mL Balance: -3268.51 mL General: Alert and oriented, No acute distress, on 4L NC, 96%. Eye: Pupils are equal, round and reactive to light, Normal conjunctiva, R eye ptosis. HENT: Normocephalic, Oral mucosa is moist. Neck: Supple, No lymphadenopathy. Respiratory: Dec bilateral bases, no rhonchi or wheezing. Cardiovascular: Normal rate, Regular rhythm, No edema. Gastrointestinal: Soft, Non-tender, Non-distended, Normal bowel sounds. Genitourinary: Support: Urinary catheter ( Indwelling ). Integumentary: Warm, Dry, [place]. Neurologic: Alert, Oriented. Psychiatric: Cooperative, Appropriate mood & affect. Review / Management Results review: Labs (Last four charted values) WBC 6.4 (VERO 28) 5.1 (VERO 27) 5.2 (VERO 26) 5.2 (VERO 25) HB 16.3 (VERO 28) 14.0 (VERO 27) 13.8 (VERO 26) L 12.9 (VERO 25) HCT 49.6 (VERO 28) 42.8 (VERO 27) 41.3 (VERO 26) L 39.6 (VERO 25) Plt L 143 (VERO 28) L 132 (VERO 27) L 137 (VERO 26) L 161 (VERO 25) Na 140 (VERO 28) 138 (VERO 28) 140 (VERO 27) 141 (VERO 26) K L 3.3 (VERO 28) L 3.3 (VERO 28) 3.7 (VERO 27) L 2.9 (VERO 27) Cl 102 (VERO 28) L 101 (VERO 28) 102 (VERO 27) 107 (VERO 26) CO2 H 34 (VERO 28) H 33 (VERO 28) H 33 (VERO 27) 31 (VERO 26) BUN H 29 (VERO 28) H 28 (VERO 28) 21 (VERO 27) H 26 (VERO 26) Cr 0.90 (VERO 28) 0.80 (VERO 28) 0.80 (VERO 27) 0.90 (VERO 26) Glu R H 129 (VERO 28) H 132 (VERO 28) H 117 (VERO 27) H 171 (VERO 26) Ca 8.9 (VERO 28) 9.1 (VERO 28) L 8.2 (VERO 27) 8.6 (VERO 26) PT 11.4 (VERO 26) INR 1.1 (VERO 26) AST H 127 (VERO 28) H 221 (VERO 26) H 224 (VERO 25) H 129 (VERO 24) ALT H 573 (VERO 28) H 528 (VERO 26) H 367 (VERO 25) H 179 (VERO 24) ALK P 75 (VERO 28) 60 (VERO 26) 55 (VERO 25) 53 (VERO 24) T Bili 1.1 (VERO 28) 1.2 (VERO 26) H 1.5 (VERO 25) 0.8 (VERO 24) PTN 7.8 (VERO 28) 7.5 (VERO 26) 6.8 (VERO 25) 6.4 (APR 10) ALB L 2.6 (APR 14) L 2.7 (APR 12) L 2.7 (APR 11) L 2.7 (APR 10) . Blood Gases (Current Encounter/Past 24 Hours) No Blood Gas Results Found (Past 24 Hours) Radiology Results (Last 48 hours) [id number] -- 04/06/2022 15:42 CR Chest 1 Vw Portable (04/13/2022 06:19) Result: PORTABLE CHEST X-RAYINDICATION: Shortness of breath.FINDINGS: A portable view of the chest was obtained. Comparison ismade to a prior exam dated 04/12/2022. There is no change in supporttubes and lines. Heart size is stable. Bibasilar opacities and bilateralpleural effusions are not significantly changed. There is nopneumothorax.IMPRESSION: No significant interval change.Images reviewed, interpreted, and dictated by Lelo Tapia MD Mechanics 04/08 NIFs -40 x 3 with VC 1.1, .8, .91 04/07 1700 -10 x3 and VC 1.13, 1.46, 1. 5 04/10 NIF -40, VC .590 04/11 NIF -40, VC .390 04/12 VC 900mL 04/13 VC 1.0L 04/14 VC 1.25L Impression and Plan Pulmonary Acute Respiratory Failure, [...] Plan Supplemental o2 as needed keep sats 90-94%, currently on 4L NC Daily VC/NIF May use Optiflo if needed Continue with mechanics (NIF and vital capacity) daily Keep HOB elevated Neuro following MRI pending (patient is currently unable to tolerate laying flat) Acetylcholine campus receptionist studies Elevated On Mestinon 90mg TID Also receiving Solumedrol and IVIG day #5--Now Prednisone 60mg Daily and Completed IVIG Serax 10mg PO BID Seroquel (home med)--400mg BiD Glycemic control: on correction insulin, target glucose 140-180 mg/dL Nutrition: TF via corpak (terminates in stomach),TF to 30ml/hr today Speech consulted to evaluate Swallow Replace Potassium 40meq PO; Recheck level per protocol Bowel regimen added Prophylaxis: Heparin and Pepcid At risk for respiratory complications CODE STATUS: FULL CODE Disposition: ICU 77 minutes critical care time excluding procedures. Discussed with CHRISTELLE and RN. documented in this encounter Plan of Treatment Not on file documented as of this encounter Visit Diagnoses Not on filedocumented in this encounter Care Teams Embroidery Operator Relationship Specialty Start Date End Date Mumtaz Larson MD [address] [facility] [address] [place] [phone] PCP - General Family Medicine 08/26/22 documented as of this encounter
--- OUTSIDE RECORDS SUMMARY | 2025-06-16 09:41 | XMS_ITS | Encounter Summary ---
Author Organization [employer] ([place], [place], [place], [place]) Address [address] [place] [address] Care Team Providers Care Hatchery Attendant Name Role Phone Mumtaz Larson MD Primary Care Provider + [phone] Encounter Details Date Type Department Care Team (Late st Contact Info) Description 04/07/2022 Transcribed Document [facility] [place] [address] [place] [address] ProviderGabriel MD [address] [place] [address] Social History Tobacco Use Types Packs/Day Years [...] Conversion Note - Historical Provider, - 04/07/2022 4:00 AM CDT Height and Weight, Routine Entered On: 04/07/2022 3:01 EDT Performed On: 04/07/2022 4:00 EDT [facility] Height and Weight, Routine Routine Weight Source : Bed scale Routine Weight Entry Format : Aurora Routine Weight, Pounds : 235 lb Routine Weight Calculation : 106.82 kg Height Source : Stated Height Entry Format : Aurora Height, Feet : 6 ft Height, Inches : 1 Inch Clinical Height : 185.42 cm Body Surface Area (BSA), Routine : 2.31 m2 Body Mass Index (BMI), Routine : 31.07 kg/m2 Sangita Watson Care [facility] Unit Coord - 04/07/2022 3:01 EDT documented in this encounter Plan of Treatment Not on file documented as of this encounter Visit Diagnoses Not on filedocumented in this encounter Care Teams Hatchery Attendant Relationship Specialty Start Date End Date Mumtaz Larson MD [address] [facility] [address] [place] [phone] PCP - General Family Medicine 08/26/22 documented as of this encounter
--- OUTSIDE RECORDS SUMMARY | 2025-06-16 09:41 | XMS_ITS | Encounter Summary ---
Author Organization [employer] ([place], [place], [place], [place]) Address [address] [place] [address] Care Team Providers Care Tool Carrier Name Role Phone Mumtaz Larson MD Primary Care Provider + [phone] Encounter Details Date Type Department Care Team (Late st Contact Info) Description 04/14/2022 Transcribed Document [facility] [place] Family Medicine [address] [place] [address] ProviderGabriel MD [address] [place] [address] Social History Tobacco Use Types Packs/Day Years [...] Conversion Note - Historical Provider, - 04/14/2022 10:18 AM CDT UM Authorization Entered On: 04/14/2022 10:18 EDT Performed On: 04/14/2022 10:18 EDT by Jenise Hoover Rn-Utilization Review Primary Insurance Authorization Authorization and Policy Numbers : Insurance 1 Health Plan: [facility] MEDICARE ADVANTAGE Policy Number: [id number] Authorization Number: Insurance Primary Name : [employer] MEDICARE ADVANTAGE - [id number] Authorization Status-Primary : Admit approved Reference Number-Primary : [id number] Number of Days Authorized-Primary : 5 Day(s) Authorized Service Begin Date-Primary : 04/06/2022 EDT Authorized Service End Date-Primary : 04/11/2022 EDT Historical Authorization Comments-Primary : Comment 1: CLINICAL UPDATE FAXED VIA [employer] FOR 04/12-04/13 (Jenise Hoover, Rn-Utilization Review 04/13/2022 16:00) Comment 2: Authorized per fax 04/08/22 @ 0856. Inpatient admission has been approved for this member. Next review due 04/12. -Amanda Kovacs (Kristen Rea, Rouge Presser 04/08/2022 12:37) Comment 3: CLINICALS FAXED VIA [employer] (04/06-04/07) (Temitope Laurent RN 04/07/2022 17:24) Comment 4: Reference number obtained per fax 04/06/22 @ 1645; request for initial clinical. -Amanda Kovacs (Kristen Rea, Rouge Presser 04/07/2022 08:07) Jenise Hoover Rn-Utilization Review - 04/14/2022 10:18 EDT documented in this encounter Plan of Treatment Not on file documented as of this encounter Visit Diagnoses Not on filedocumented in this encounter Care Teams Tool Carrier Relationship Specialty Start Date End Date Mumtaz Larson MD [address] [place] [facility] [address] [place] [phone] PCP - General Family Medicine 08/26/22 documented as of this encounter
--- OUTSIDE RECORDS SUMMARY | 2025-06-16 09:41 | XMS_ITS | Encounter Summary ---
Author Organization [employer] ([place], [place], [place], [place]) Address [address] [address] Care Team Providers Care Lamps Tester And Inspector Name Role Phone Mumtaz Larson MD Primary Care Provider + [phone] Encounter Details Date Type Department Care Team (Late st Contact Info) Description 04/17/2022 Transcribed Document [facility] [place] [address] [place] [address] ProviderGabriel MD [address] [place] [address] Social History Tobacco Use Types Packs/Day Years [...] Date Macario rded Speak language other than Zambian at home Not on file 10/29/2023 Want [...] Cerner Conversion Note - Historical Provider, - 04/17/2022 8:39 AM CDT UM Authorization Entered On: 04/17/2022 8:39 EDT Performed On: 04/17/2022 8:39 EDT by Kristen Rea, Block Breaker Operator Primary Insurance Authorization Authorization and Policy Numbers : Insurance 1 Health Plan: [facility] MEDICARE ADVANTAGE Policy Number: [id number] Authorization Number: Insurance Primary Name : [employer] MEDICARE ADVANTAGE - [id number] Authorization Status-Primary : Admit approved Auth/Referral Contact Name-Primary : DC Reference Number-Primary : [id number] Number of Days Authorized-Primary : 5 Day(s) Authorized Service Begin Date-Primary : 04/06/2022 EDT Authorized Service End Date-Primary : 04/11/2022 EDT Authorization Comments-Primary : Discharge date and summary faxed. Historical Authorization Comments-Primary : Comment 1: CLINCALS FAXED VIA [employer] 04/14-04/16) (Temitope Laurent, KARLA 04/16/2022 16:03) Comment 2: CLINICAL UPDATE FAXED VIA [employer] FOR 04/12-04/13 (Jenise Hoover, Rn-Utilization Review 04/13/2022 16:00) Comment 3: Authorized per fax 04/08/22 @ 0856. Inpatient admission has been approved for this member. Next review due 04/12. -Amanda Kovacs (Kristen Rea, Block Breaker Operator 04/08/2022 12:37) Comment 4: CLINICALS FAXED VIA [employer] (04/06-04/07) (Temitope Laurent, KARLA 04/07/2022 17:24) Comment 5: Reference number obtained per fax 04/06/22 @ 1645; request for initial clinical. -Amanda Kovacs (Kristen Rea, Block Breaker Operator 04/07/2022 08:07) Kristen Rea, Block Breaker Operator - 04/17/2022 8:39 EDT Electronically signed by Sherri [facility] Conversion Houseperson Cerner at 02/01/2023 6:47 PM CDT documented in this encounter Plan of Treatment Not on file documented as of this encounter Visit Diagnoses Not on filedocumented in this encounter Care Teams Lamps Tester And Inspector Relationship Specialty Start Date End Date Mumtaz Larson MD [facility] [address] [place] [phone] PCP - General Family Medicine 08/26/22 documented as of this encounter
--- OUTSIDE RECORDS SUMMARY | 2025-06-16 09:41 | XMS_ITS | Encounter Summary ---
Author Organization [employer] ([place], [place], [place], [place]) Address [address] [place] [address] Care Team Providers Care Public Relations Intern Name Role Phone Mumtaz Larson MD Primary Care Provider + [phone] Encounter Details Date Type Department Care Team (Late st Contact Info) Description 04/10/2022 Transcribed Document [facility] [place] [address] [place] [address] ProviderGabriel MD [address] [place] [address] Social History Tobacco Use Types Packs/Day Years [...] Conversion Note - Historical Provider, - 04/10/2022 5:18 PM CDT On Going Discharge Planning Entered On: 04/10/2022 17:20 EDT Performed On: 04/10/2022 17:18 EDT by CHADWICK ALANIZ Social Worker Care Management Progress Note Discharge Arrangements : Patient Post-Acute Information Patient Name: TIEN GARCIA Gender: Male : [birth year] Age: 66 Years No Post-Acute Placement(s) Listed No Post-Acute Service(s) Listed No [place]pan Referral(s) Listed Discharge Options Discussed with Patient : Acute rehabilitation, Home Health, retirement Barriers to Discharge Identified : Clinical Condition of Patient Patient Discharge Goal : Inpatient rehabilitation facility Is the Patient Meeting Medical Necessity : Yes CHADWICK ALANIZ Social Worker - 04/10/2022 17:18 EDT Narrative Progress Note Narrative Progress Note : HD 4/ELOS 6/RRS moderate- on continuous bipap, TF via Corpak, Wx=180, BJY=292, LDW=005, IVIG, IV Solumedrol BID, IV K+ Phosphate x2 doses, IV Zosyn q6, PT/OT/ST following, DCP: home with possible HH vs rehab pending respiratory requirements/mobility. CHADWICK ALANIZ Social Worker - 04/10/2022 17:18 EDT documented in this encounter Plan of Treatment Not on file documented as of this encounter Visit Diagnoses Not on filedocumented in this encounter Care Teams Public Relations Intern Relationship Specialty Start Date End Date Mumtaz Larson MD [address] [place] [facility] [address] [place] [phone] PCP - General Family Medicine 08/26/22 documented as of this encounter
--- OUTSIDE RECORDS SUMMARY | 2025-06-16 09:41 | XMS_ITS | Encounter Summary ---
Author Organization [employer] ([place], [place], [place], [place]) Address [address] [place] [address] Care Team Providers Care Lead Burner Name Role Phone Mumtaz Larson MD Primary Care Provider + [phone] Encounter Details Date Type Department Care Team (Late st Contact Info) Description 04/08/2022 Transcribed Document [facility] [place] Family Medicine [address] [place] [address] ProviderGabriel MD [address] [place] [address] Social History Tobacco Use Types Packs/Day Years [...] Date Macario rded Speak language other than [place] at home Not on file 10/29/2023 Want [...] Conversion Note - Historical Provider, - 04/08/2022 8:24 AM CDT NETWORK ADMINISTRATOR Attempt to Treat Entered On: 04/08/2022 8:25 EDT Performed On: 04/08/2022 8:24 EDT by HOUSTON MCNEIL SLP Attempt to Treat Unable to Treat Due To : Acuity of Illness Inability to Treat Comment : Minimal change in status. Dysphagia exs contraindicated. NETWORK ADMINISTRATOR will continue to follow for re-eval as appropriate. Notification : KARLA De La Rosa CARLY, [place] - 04/08/2022 8:24 EDT Electronically signed by Horace Polanco Conversion Customer Resource Specialist Cerner at 02/01/2023 6:49 PM CDT documented in this encounter Plan of Treatment Not on file documented as of this encounter Visit Diagnoses Not on filedocumented in this encounter Care Teams Lead Burner Relationship Specialty Start Date End Date Mumtaz Larson MD [address] [place] [facility] [address] [place] [phone] PCP - General Family Medicine 08/26/22 documented as of this encounter
--- OUTSIDE RECORDS SUMMARY | 2025-06-16 09:41 | XMS_ITS | Encounter Summary ---
Author Organization [employer] ([place], [place], [place], [place]) Address [address] [place] [address] Care Team Providers Care Used Car Lot Attendant Name Role Phone Mumtaz Larson MD Primary Care Provider + [phone] Encounter Details Date Type Department Care Team (Late st Contact Info) Description 04/14/2022 Transcribed Document [facility] [place] Family Medicine [address] [place] [address] ProviderGabriel MD [address] [place] [address] Social History Tobacco Use Types Packs/Day Years [...] Conversion Note - Historical Provider, - 04/14/2022 9:51 AM CDT Patient: TIEN GARCIA Age: 66 years Sex: Male : 1955 Associated Diagnoses: None Author: SRAVAN HIDALGO MD-TEETEE Subjective Pt much improved today- off bipap to nasal canula and breathing well; feels ready to eat. Tolerating increased Mestinon dose well Objective VS/Measurements Vital Signs/Vital Measures 04/14/2022 9:17 EDT Heart Rate Monitored 116 bpm MO 04/14/2022 8:00 EDT Systolic Blood Pressure 114 mmHg Diastolic Blood Pressure 79 mmHg Clinical Temperature, F 98.4 Deg F General: awake and alert, in no distress; speech is fluent with mild dysarthria. Eye: Pupils are equal, round and reactive to light, Extraocular movements are intact, R ptosis- improving. Respiratory: Respirations are non-labored. Cardiovascular: Normal rate, Regular rhythm. Neurologic: R ptosis noted with mild facial weakness, CN otherwise intact; motor strength is 5/5 throughout, sensation intact, no ataxia. Gait has been steady with PT. Psychiatric: Cooperative. Results Review Labs reviewed Impression and Plan 66yo M admitted with new onset dysphagia, dysarthria as well as shortness of breath and ptosis; he did have viral meningitis about a month ago, no specific viral cause was found at that time. He does have positive antibody testing to AchR consistent with myasthenia gravis; other tests have been unremarkable. He is significantly improved following a course of IV Ig as well as IV solumedrol; he is improved from yesterday with increased Mestinon dose. He meets criteria for diagnosis of myasthenia gravis at this time; no need to pursue MRI brain or further testing from my standpoint. We will continue Mestinon and oral prednisone taper (60mg daily currently, to decrease by 10mg/week until neurology follow up 05/13). He can transfer out of ICU from my standpoint; continue PT/OT/speech therapy. He will likely be appropriate for discharge home once tolerating PO and stable from respiratory standpoint. Plan discussed with patient and ; info for outpatient neurology appointment given. I will continue to follow. Electronically signed by Sherri, [facility] Conversion Data Integration Analyst Cerner at 02/01/2023 6:50 PM CDT documented in this encounter Plan of Treatment Not on file documented as of this encounter Visit Diagnoses Not on filedocumented in this encounter Care Teams Used Car Lot Attendant Relationship Specialty Start Date End Date Mumtaz Larson MD [address] [place] [facility] [address] [place] [phone] PCP - General Family Medicine 08/26/22 documented as of this encounter
--- OUTSIDE RECORDS SUMMARY | 2025-06-16 09:41 | XMS_ITS | Encounter Summary ---
Author Organization [employer] ([place], [place], [place], [place]) Address [address] [place] [address] Care Team Providers Care Pelt Salter Name Role Phone Mary Larson MD Primary Care Provider + [phone] Encounter Details Date Type Department Care Team (Late st Contact Info) Description 06/04/2022 Transcribed Document [facility] [place] [address] [place] [address] ProviderGabriel MD [address] [place] [address] Social History Tobacco Use Types Packs/Day Years [...] Conversion Note - Historical Provider, - 06/04/2022 10:52 AM CDT [address] , [place], [place] [id number] Patient Copy Patient Information: Name: TIEN GARCIA Current Date: 06/04/2022 10:52:21 : 1955 Patient Address: [address] [place] [address] Patient Attending Physician: JAMIR MURRAY MD Primary Care Provider: MARY LARSON (REF)[facility] Primary Care Provider Discharge Diagnosis: Cellulitis; Myasthenia gravis with exacerbation Weight on Admission: 205 lb, 0 oz Weight at Discharge: 200 lb, 5 oz Comment: Follow-up Instructions: With: Address: When: MARY LARSON [facility] [address] [place] [address] Business (1) Within 5 to 7 days With: Address: When: PILLO GAINES [address] [facility] [address] [place] [address] Business (1) Within 2 weeks With: Address: When: JOYCE CHESTER [address] [facility], [address] [place], [place] [id number] Business (1) In 11 days 06/15/2022 Comments: Follow up appointment scheduled for 06/15 Discharge Instructions: Immunizations Documented During Stay: No Immunizations Found Heart Failure Discharge Instructions (if any): Stroke Related Discharge Instructions (if any): Warfarin Related Discharge Instructions (if any): Final Medication List: [facility], [address] [facility] [address] [place], [place] [id number], [phone] cefUROXIME (Ceftin 500 mg oral tablet) 1 Tablet(s) Oral Two Times A Day for 10 Day(s). via PEG. Refills: 0. Other Medications allopurinol (allopurinol 300 mg oral tablet) 1 Tablet(s) Oral Every Day. atenolol-chlorthalidone (atenolol-chlorthalidone 100 mg-25 mg oral tablet) 1 Tablet(s) Oral Every Day. calcium-vitamin D (calcium (as carbonate)-vitamin D 500 mg-2.5 mcg (100 intl units) oral tablet, chewable) 1 Tablet(s) Chew Two Times A Day. cholecalciferol (Vitamin D3 400 units oral tablet) 1 Tablet(s) Oral Every Day. DULoxetine (Cymbalta 60 mg oral delayed release capsule) 2 Capsule(s) Oral Every Day. (do not crush or chew). fenofibrate (TriCor 145 mg oral tablet) 1 Tablet(s) Oral Every Day. fluticasone nasal (Flonase) 1 [place](s) Nostrils Both Every Day. levothyroxine (levothyroxine 50 mcg (0.05 mg) oral tablet) 1 Tablet(s) Oral Every Day. metFORMIN (MetFORMIN (Eqv-Glucophage XR) 500 mg oral tablet, extended release) 1 Tablet(s) Oral Every Day. mycophenolate mofetil (mycophenolate mofetil 500 mg oral tablet) 1 Tablet(s) Oral Two Times A Day. 1 hour before or 2 hours after meals. omeprazole (PriLOSEC 20 mg oral delayed release capsule) 1 Capsule(s) Oral Every Day. before a meal. potassium chloride (Potassium Chloride (Yci-Tprv-Pwq M20) 20 mEq oral tablet, extended release) 1 Tablet(s) Oral Two Times A Day. pramipexole (pramipexole 0.25 mg oral tablet) 1 Tablet(s) Oral At Bedtime. predniSONE (predniSONE 50 mg oral tablet) 1 Tablet(s) Oral Every Day. pyridostigmine (pyridostigmine 60 mg oral tablet) 1 Tablet(s) Oral Four Times A Day. QUEtiapine (QUEtiapine 50 mg oral tablet) 1 Tablet(s) Oral Two Times A Day. Patient Allergies: No Known Medication Allergies Medication Instructions: Take your medications faithfully. Do NOT skip [...] cramping, rapid heartbeat, difficulty sleeping, and nervousness. Patient education materials: Dysphagia Dysphagia is trouble swallowing. This condition occurs when solids and liquids stick in a person's throat on the way down to the stomach, or when food takes longer to get to the stomach than usual. You may have problems swallowing food, liquids, or both. You may also have pain while trying to swallow. It may take you more time and effort to swallow something. What are the causes? This condition may be caused by: ??? Muscle problems. These may make it difficult for you to move food and liquids through the esophagus, which is the tube that connects your mouth to your stomach. ??? Blockages. You may have ulcers, scar tissue, or inflammation that blocks the normal passage of food and liquids. Causes of these problems include: ? Acid reflux from your stomach into your esophagus (gastroesophageal reflux). ? Infections. ? Radiation treatment for cancer. ? Medicines taken without enough fluids to wash them down into your stomach. ??? Stroke. This can affect the nerves and make it difficult to swallow. ??? Nerve problems. These prevent signals from being sent to the muscles of your esophagus to squeeze (contract) and move what you swallow down to your stomach. ??? Globus pharyngeus. This is a common problem that involves a feeling like something is stuck in your throat or a sense of trouble with swallowing, even though nothing is wrong with the swallowing passages. ??? Certain conditions, such as cerebral palsy or Parkinson's disease. What are the signs or symptoms? Common symptoms of this condition include: ??? A feeling that solids or liquids are stuck in your throat on the way down to the stomach. ??? Pain while swallowing. ??? Coughing or gagging while trying to swallow. Other symptoms include: ??? Food moving back from your stomach to your mouth (regurgitation). ??? Noises coming from your throat. ??? Chest discomfort when swallowing. ??? A feeling of fullness when swallowing. ??? Drooling, especially when the throat is blocked. ??? Heartburn. How is this diagnosed? This condition may be diagnosed by: ??? Barium swallow X-ray. In this test, you will swallow a white liquid that sticks to the inside of your esophagus. X-ray images are then taken. ??? Endoscopy. In this test, a flexible telescope is inserted down your throat to look at your esophagus and your stomach. ??? CT scans or an MRI. How is this treated? Treatment for dysphagia depends on the cause of this condition: ??? If the dysphagia is caused by acid reflux or infection, medicines may be used. These may include antibiotics or heartburn medicines. ??? If the dysphagia is caused by problems with the muscles, swallowing therapy may be used to help you strengthen your swallowing muscles. You may have to do specific exercises to strengthen the muscles or stretch them. ??? If the dysphagia is caused by a blockage or mass, procedures to remove the blockage may be done. You may need surgery and a feeding tube. You may need to make diet changes. Ask your health care provider for specific instructions. Follow these instructions at home: Medicines ??? Take qxyp-muq-oedmiwu and prescription medicines only as told by your health care provider. ??? If you were prescribed an antibiotic medicine, take it as told by your health care provider. Do not stop taking the antibiotic even if you start to feel better. Eating and drinking ??? Make any diet changes as told by your health care provider. ??? Work with a diet and data collection specialist (dietitian) to create an eating plan that will help you get the nutrients you need in order to stay healthy. ??? Eat soft foods that are easier to swallow. ??? Cut your food into small pieces and eat slowly. Take small bites. ??? Eat and drink only when you are sitting upright. ??? Do not drink alcohol or caffeine. If you need help quitting, ask your health care provider. General instructions ??? Check your weight every day to make sure you are not losing weight. ??? Do not use any products that contain nicotine or tobacco. These products include cigarettes, chewing tobacco, and vaping devices, such as e-cigarettes. If you need help quitting, ask your health care provider. ??? Keep all follow-up visits. This is important. Contact a health care provider if: ??? You lose weight because you cannot swallow. ??? You cough when you drink liquids. ??? You cough up partially digested food. Get help right away if: ??? You cannot swallow your saliva. ??? You have shortness of breath, a fever, or both. ??? Your voice is hoarse and you have trouble swallowing. These symptoms may represent a serious problem that is an emergency. Do not wait to see if the symptoms will go away. Get medical help right away. Call your local emergency services (911 in the [place] Do not drive yourself to the hospital. Summary ??? Dysphagia is trouble swallowing. This condition occurs when solids and liquids stick in a person's throat on the way down to the stomach. You may cough or gag while trying to swallow. ??? Dysphagia has many possible causes. ??? Treatment for dysphagia depends on the cause of the condition. ??? Keep all follow-up visits. This is important. This information is not intended to replace advice given to you by your health care provider. Make sure you discuss any questions you have with your health care provider. Document Revised: 05/24/2021 Document Reviewed: 05/24/2021 [employer] Patient Education ? 2021 [employer] PEG Tube Home Guide A percutaneous endoscopic gastrostomy (PEG) tube is used to deliver food, medicine, and fluids directly into the stomach. The tube has a clamp, a cap, and two anchors (bolsters). One bolster keeps the tube from coming out of the stomach. The other bolster holds the tube against the abdomen. You will be taught how to use and adjust your PEG tube before you leave the hospital. You will also be taught how to care for the opening (stoma) in your abdomen. Make sure that you understand: ??? How to care for your PEG tube. ??? How to care for your stoma. ??? How to give yourself feedings and medicines. ??? When to call your health care provider for help. Supplies needed: ??? Soapy water. ??? Clean, plain water. ??? Clean washcloth. ??? Bandage (dressing). This is optional. ??? Syringe. How to care for a PEG tube Check your PEG tube every day. Make sure: ??? It is not too tight. The bolster should rest gently over the stoma. ??? It is in the correct position. There is a nathaniel on the tube that shows when it is in the correct position. Adjust the tube if you need to. Cleaning your stoma Clean your stoma every day. Follow these steps: 1. Wash your hands with soap and water for at least 20 seconds. If soap and water are not available, use hand stove tender. 2. Check the skin around the stoma for redness, rash, swelling, drainage, or extra tissue growth. If you notice any of these, call your health care provider. 3. Wash the stoma and the skin around it using a clean, soft washcloth. Clean using a circular motion, and wipe away from the stoma opening, not toward it. ??? Use warm, soapy water, and only use cleansers recommended by your health care provider. ??? Rinse the stoma area with plain water. ??? Pat the stoma area dry. 4. Place a dressing over the stoma if your health care provider told you to do that. Giving yourself a feeding Your health care provider will give you instructions about: ??? How much nutrition and fluid you will need for each feeding. ??? How often to have a feeding. ??? Whether to take medicine in the tube by itself or with a feeding. To give yourself a feeding, follow these steps: 1. Lay out all of the equipment that you will need. 2. Make sure that the nutritional formula is at room temperature. 3. Wash your hands with soap and water for at least 20 seconds. If soap and water are not available, use hand stove tender. 4. Position yourself so that you are upright. You will need to stay upright throughout the feeding and for at least 30 minutes after the feeding. 5. Make sure the syringe plunger is pushed in. Place the tip of the syringe in clean water, and slowly pull the plunger to bring (draw up) the water into the syringe. 6. Remove the clamp and the cap from the PEG tube. 7. Push the water out of the syringe to clean (flush) the tube. 8. If the tube is clear, draw up the formula into the syringe. Make sure to use the right amount for each feeding and add water if necessary. 9. Slowly push the formula from the syringe through the tube. 10. After the feeding, flush the tube with water. 11. Put the clamp and the cap on the tube. 12. Stay sitting up or standing up straight for at least 30 minutes. Use the feeding tube equipment, such as syringes and connectors, only as told by your health care provider. Giving yourself medicine To give yourself medicine, follow these steps: 1. Lay out all of the equipment that you will need. 2. If your medicine is in tablet form, crush the tablet and dissolve it in water. 3. Wash your hands with soap and water for at least 20 seconds. If soap and water are not available, use hand stove tender. 4. Position yourself so that you are upright. You will need to stay upright while you give yourself medicine and for at least 30 minutes afterward. 5. Make sure the syringe plunger is pushed in. Place the tip of the syringe in clean water, and slowly pull the plunger to bring (draw up) the water into the syringe. 6. Remove the clamp and the cap from the PEG tube. 7. Push the water out of the syringe to clean (flush) the tube. 8. If the tube is clear, draw up the medicine into the syringe. 9. Slowly push the medicine from the syringe through the tube. 10. Flush the tube with water. 11. Put the clamp and the cap on the tube. 12. Stay sitting up or standing up straight for at least 30 minutes. Do not take sustained release (SR) medicines through your tube. If you are unsure if your medicine is an SR medicine, ask your health care provider or pharmacist. Contact a health care provider if you have: ??? Soreness, redness, or irritation around your stoma. ??? Abdominal pain or bloating during or after your feedings. ??? Nausea, constipation, or diarrhea that will not go away. ??? A fever. ??? Problems with your PEG tube. Get help right away if: ??? Your tube is blocked. ??? Your tube falls out. ??? You have pain around your stoma. ??? You are bleeding from your stoma. ??? Your tube is leaking. ??? You choke or you have trouble breathing during or after a feeding. Summary ??? A percutaneous endoscopic gastrostomy (PEG) tube is used to deliver food and fluids directly into the stomach. ??? You will be taught how to use and adjust your PEG tube. You will also be taught how to care for the stoma in your abdomen. ??? Your health care provider will give you instructions on how to give yourself nutritional formula and medicines through your PEG tube. ??? Contact your health care provider if you have a fever or soreness, redness, or irritation around your stoma. ??? Get help right away if your tube leaks, is blocked, or falls out. Get help right away if you have pain or bleeding around your stoma. This information is not intended to replace advice given to you by your health care provider. Make sure you discuss any questions you have with your health care provider. Document Revised: 09/24/2021 Document Reviewed: 02/14/2021 [employer] Patient Education ? 2021 [employer] Elbow Bursitis Bursitis is swelling and pain at the tip of the elbow. This happens when fluid builds up in a sac under the skin (bursa). This may also be called olecranon bursitis. What are the causes? Elbow bursitis may be caused by: ??? Elbow injury, such as falling onto the elbow. ??? Leaning on hard surfaces for long periods of time. ??? Infection from an injury that breaks the skin near the elbow. ??? A bone growth (spur) that forms at the tip of the elbow. ??? A medical condition that causes inflammation, such as gout or rheumatoid arthritis. Sometimes the cause is not known. What are the signs or symptoms? The first sign of elbow bursitis is usually swelling at the tip of the elbow. This can grow to be about the size of a golf ball. Swelling may start suddenly or develop gradually. Other symptoms may include: ??? Pain when bending or leaning on the elbow. ??? Not being able to move the elbow normally. If bursitis is caused by an infection, you may have: ??? Redness, warmth, and tenderness of the elbow. ??? Drainage of pus from the swollen area over the elbow, if the skin breaks open. How is this diagnosed? This condition may be diagnosed based on: ??? Your symptoms and medical history. ??? Any recent injuries you have had. ??? A physical exam. ??? X-rays to check for a bone spur or fracture. ??? Draining fluid from the bursa to test it for infection. ??? Blood tests to rule out gout or rheumatoid arthritis. How is this treated? Treatment for elbow bursitis depends on the cause. Treatment may include: ??? Medicines. These may include: ? Xeaq-xpc-wlypvhn medicines to relieve pain and inflammation. ? Antibiotic medicines. ? Injections of anti-inflammatory medicines (steroids). ??? Draining fluid from the bursa. ??? Wrapping your elbow with a bandage. ??? Wearing elbow pads. If these treatments do not help, you may need surgery to remove the bursa. Follow these instructions at home: Medicines ??? Take chyf-bfp-yhqvhof and prescription medicines only as told by your health care provider. ??? If you were prescribed an antibiotic medicine, take it as told by your health care provider. Do not stop taking the antibiotic even if you start to feel better. Managing pain, stiffness, and swelling ??? If directed, put ice on your elbow: ? Put ice in a plastic bag. ? Place a towel between your skin and the bag. ? Leave the ice on for 20 minutes, 2?3 times a day. ??? If your bursitis is caused by an injury, rest your elbow and wear your bandage as told by your health care provider. ??? Use elbow pads or elbow wraps to cushion your elbow as needed. General instructions ??? Avoid any activities that cause elbow pain. Ask your health care provider what activities are safe for you. ??? Keep all follow-up visits as told by your health care provider. This is important. Contact a health care provider if you have: ??? A fever. ??? Symptoms that do not get better with treatment. ??? Pain or swelling that: ? Gets worse. ? Goes away and then comes back. ??? Pus draining from your elbow. Get help right away if you have: ??? Trouble moving your arm, hand, or fingers. Summary ??? Elbow bursitis is inflammation of the fluid-filled sac (bursa) between the tip of your elbow bone (olecranon) and your skin. ??? Treatment for elbow bursitis depends on the cause. It may include medicines to relieve pain and inflammation, antibiotic medicines, and draining fluid from your elbow. ??? Contact a health care provider if your symptoms do not get better with treatment, or if your symptoms go away and then come back. This information is not intended to replace advice given to you by your health care provider. Make sure you discuss any questions you have with your health care provider. Document Revised: 04/09/2021 Document Reviewed: 04/09/2021 [employer] Patient Education ? 2021 [employer] CIGARETTE SMOKING: The facts are clear, cigarette smoking will shorten your life. Smoking can cause many illnesses along the way. As a healthcare provider, we recommend that you stop smoking. Assistance with quitting is available by contacting 3-371-XIXE-NOW. This is a free resource providing counseling, support, and referral. Or you may contact your personal physician. 4 WAYS TO GET AHEAD OF SEPSIS SEPSIS is a MEDICAL EMERGENCY. Time matters! Infections put you and your family at risk for a life-threatening condition called sepsis. Sepsis is the body???s extreme response to an infection. It is life-threatening, and without timely treatment, sepsis can rapidly lead to tissue damage, organ failure, and . Sepsis happens when an infection you already have???in your skin, lungs, urinary tract or somewhere else???triggers a chain reaction throughout your body. 1 [...] sepsis or if you have an infection that???s not getting better or is getting worse. To learn more about sepsis and how to prevent infections, visit www.cdc.gov/sepsis. STROKE is an EMERGENCY Every [employer] ACT F.A.S.T! FACE ?? Facial droop ?? Uneven smile ARM ?? Arm numbness ?? Arm weakness SPEECH ?? Slurred speech ?? Difficulty speaking or understanding TIME ?? Call 911 and get to the hospital immediately Have the ambulance go to the nearest stroke center. STROKE Risk Factors High blood pressure High cholesterol Heart Disease Diabetes Smoking Heavy alcohol use Physical inactivity and obesity Atrial Fibrillation (irregular heartbeat) Family history of stroke Reminder: Be sure to sign up for the [facility] patient portal, which gives you 10/05 access to your medical information ??? including these discharge instructions ??? using your computer, smartphone, or tablet. Just go to [employer] to get started. Questions? Call . [facility] would like to thank you for allowing us to assist you with your healthcare needs. RADHA Lorenzo HARRY S, (or in store marketing representative) have received the above patient education materials/instructions and have verbalized understanding: Patient Signature _ Date/Time Patient Thermoplastic Technician Signature (if needed) Date/Time Clinician/Hospital Thermoplastic Technician Signature (if needed) Date/Time Electronically signed by Sherri, [facility] Conversion Oil Burner Mechanic Cerner at 02/01/2023 7:03 PM CDT documented in this encounter Plan of Treatment Not on file documented as of this encounter Visit Diagnoses Not on filedocumented in this encounter Care Teams Pelt Salter Relationship Specialty Start Date End Date Mary Larson MD [address] [place] [facility] [address] [place] [id number] PCP - General Family Medicine 08/26/22 documented as of this encounter
--- OUTSIDE RECORDS SUMMARY | 2025-06-16 09:41 | XMS_ITS | Encounter Summary ---
Author Organization [employer] ([place], [place], [place], [place]) Address [address] [place] [address] Care Team Providers Care Showroom Salesperson Name Role Phone Mary Larson MD Primary Care Provider + [phone] Encounter Details Date Type Department Care Team (Late st Contact Info) Description 06/04/2022 Transcribed Document [facility] [place] [address] [place] [address] ProviderGabriel MD [address] [place] [address] Social History Tobacco Use Types Packs/Day Years [...] Date Macario rded Speak language other than Panamanian at home Not on file 10/29/2023 Want [...] Conversion Note - Historical Provider, - 06/04/2022 10:55 AM CDT MARY LARSON, WANDA [address] [place] [facility] [address] [place], [place] [address] Alex Fields MD Re: TIEN GARCIA Date of Visit: 06/01/2022 Dear MARY LARSON Thank you for allowing me to participate in your patient's care. Please see the accompanying information that I would like to share with you regarding your patient. This Document is confidential and intended solely for the use of the individual or entity to which it is addressed. If you are not the named addressee, please disregard and do not disseminate, distribute or copy this information. If you are the intended recipient any disclosure of this information and its contents is strictly prohibited. Sincerely, ANNIKA JOHNS [address] [facility] [address] [place] [address] The following document(s) were included in the letter: June 04, 2022 10:45:55 EDT - (06/04/2022) Discharge Note documented in this encounter Plan of Treatment Not on file documented as of this encounter Visit Diagnoses Not on filedocumented in this encounter Care Teams Showroom Salesperson Relationship Specialty Start Date End Date Mary Larson MD [address] [place] [facility] [address] [place] [id number] PCP - General Family Medicine 08/26/22 documented as of this encounter
--- OUTSIDE RECORDS SUMMARY | 2025-06-16 09:42 | XMS_ITS | Encounter Summary ---
Author Organization [employer] ([place], [place], [place], [place]) Address [address] [place] [address] Care Team Providers Care Fire Extinguisher Sprinkler Inspector Name Role Phone Mumtaz Larson MD Primary Care Provider + [phone] Encounter Details Date Type Department Care Team (Late st Contact Info) Description 06/04/2022 Transcribed Document [facility] [place] Family Medicine [address] [place] [address] ProviderGabriel MD [address] [place] [address] Social History Tobacco Use Types Packs/Day Years [...] Date Macario rded Speak language other than Vietnamese at home Not on file 10/29/2023 Want [...] Historical Provider, - 06/04/2022 1:26 PM CDT Stroke/Warfarin Instructions Entered On: 06/04/2022 13:26 EDT Performed On: 06/04/2022 13:26 EDT by Adore Walker RN-PATIENT CARE BEDSIDE NON-EXEMPT Stroke/Warfarin Instructions Stroke/TIA Discharge Ins : N/A Warfarin Discharge Ins : N/A Adore Walker RN-PATIENT CARE BEDSIDE NON-EXEMPT - 06/04/2022 13:26 EDT Electronically signed by Sherri [facility] Conversion Door Slinger Cerner at 02/01/2023 7:10 PM CDT documented in this encounter Plan of Treatment Not on file documented as of this encounter Visit Diagnoses Not on filedocumented in this encounter Care Teams Fire Extinguisher Sprinkler Inspector Relationship Specialty Start Date End Date Mumtaz Larson MD [address] [facility] [address] [place] [id number] PCP - General Family Medicine 08/26/22 documented as of this encounter
--- OUTSIDE RECORDS SUMMARY | 2025-06-16 09:42 | XMS_ITS | Encounter Summary ---
Author Organization [employer] ([place], [place], [place], [place]) Address [address] [place] [address] Care Team Providers Care Station Installer Name Role Phone Mumtaz Larson MD Primary Care Provider + [phone] Encounter Details Date Type Department Care Team (Late st Contact Info) Description 04/15/2022 Transcribed Document [facility] Radiology [address] [place] [address] Yanni Menendez MD [address] [place] [address] [place] [address] Social History Tobacco Use Types Packs/Day Years [...] Date Macario rded Speak language other than Estonian at home Not on file 10/29/2023 Want [...] Conversion Note - Yanni Menendez MD - 04/15/2022 3:00 PM EDT Patient: TIEN GARCIA Age: 66 years Sex: Male : 1955 Associated Diagnoses: None Author: YANNI MENENDEZ MD-INT Subjective Date ofencounter 04/15/22 Patient is awake and alert Up in chair Family at bedside He had a BM Breathing better Objective VS/Measurements Vitals Signs (last 24 hrs) Last Charted Minimum Maximum Temp 98.0 (APR 15 08:00) 98.0 (APR 15 08:00) 98.7 (APR 14 20:00) Mon HR 96 (APR 15 15:45) 93 (APR 15 02:00) 129 (APR 14 16:00) Resp Rate 15 (APR 15 15:45) 15 (APR 15 05:46) H 37 (APR 14 16:00) SBP 131 (APR 15 14:00) 100 (APR 15 05:00) H 144 (APR 15 11:00) DBP 86 (APR 15 14:00) 65 (APR 15 02:00) H 99 (APR 15 07:00) MAP 104 (APR 15 14:00) 78 (APR 15 04:00) 113 (APR 15 11:00) SpO2 98 (APR 15 15:45) L 75 (APR 14 18:00) 99 (APR 15 15:00) General: Alert and oriented, No acute distress. Eye: Extraocular movements are intact, Normal conjunctiva, ptosis . HENT: Normocephalic. Neck: Supple, Non-tender. Respiratory: Lungs are clear to auscultation, Breath sounds are equal. Cardiovascular: Normal rate, Regular rhythm, No murmur. Gastrointestinal: Soft, Non-tender, Non-distended, Normal bowel sounds. Musculoskeletal: No tenderness. Integumentary: Warm, No rash. [...] off bipap and on HF NC now and bipap at night Elevated LFT D/C Tylenol hepatitis panel not reactive, Hepatic US noted Moderate enlarged fatty infiltrated liver and trending down. Dysphagia Secondary to myasthenia gravis Evaluated by speech and diet advanced now and tolerating. Hypernatremia, resolved. Aspiration pneumonia completed zosyn Hypokalemia and hypophosphatemia Replaced H/O Prostate cancer Flomax Hypothyroidism Restart levothyroxine Check TSH WNL Diabetes mellitus Sliding-scale insulin Monitor blood sugar HTN On norvasc and diuretic resume atenolol at lower dose (had bradycardia while on precedex) and now with tachycardia at baseline Use IV hydralazine PRN Prolonged Qt Home seroquel withheld and follow Restless leg syndrome Resume home medications DVT prophylaxis sc heparin Disposition: Patient with myasthenia admitted with dysphagia blurry vision, secondary to myasthenia gravis, neurology following, started on pyridostigmine, steroid. Currently off bipap and and diet advanced.Continue with therapy. At discharge anticipate either rehab/home with HH depending on his clinical progress with performance status . Discussed with patient and family and time spent with above 30 minutes. documented in this encounter Plan of Treatment Not on file documented as of this encounter Visit Diagnoses Not on filedocumented in this encounter Care Teams Station Installer Relationship Specialty Start Date End Date Mumtaz Larson MD [address] [place] [address] [place] [id number] PCP - General Family Medicine 08/26/22 documented as of this encounter
--- OUTSIDE RECORDS SUMMARY | 2025-06-16 09:42 | XMS_ITS | Encounter Summary ---
Author Organization [employer] ([place], [place], [place], [place]) Address [address] [place] [address] Care Team Providers Care Concrete Pipe Plant Supervisor Name Role Phone Mumtaz Larson MD Primary Care Provider + [phone] Encounter Details Date Type Department Care Team (Late st Contact Info) Description 06/04/2022 Transcribed Document [facility] [place] [address] [place] [address] ProviderGabriel MD [address] [place] [address] Social History Tobacco Use Types Packs/Day Years [...] rded Speak language other than Citizen [place] at home Not on file 10/29/2023 Want [...] Conversion Note - Historical Provider, - 06/04/2022 1:19 PM CDT On Going Discharge Planning Entered On: 06/04/2022 13:26 EDT Performed On: 06/04/2022 13:19 EDT by GILBERT TODD RN-Seismic EngineerHand Touch Up Painter Progress Note Discharge Arrangements : Patient Post-Acute Information Patient Name: TIEN GARCIA Gender: Male : [birth year] Age: 66 Years No Post-Acute Placement(s) Listed No Post-Acute Service(s) Listed No [place] Referral(s) Listed Discharge Options Discussed with Patient : Discharge transportation, Home Health, Short term rehabilitation Barriers to Discharge Identified : None identified Barriers to Discharge Unresolved : All resolved Patient Discharge Goal : Home health care Patient Offered Choice/Affiliations Explained : Yes List/Info Provided Pt/Fam/Support Person : Home health [facility] Quality Web Info Shared w Pt/Fam : No Is the Patient Meeting Medical Necessity : Yes Physician Agreeable to Move Forward with D/C Plan? : Yes Did you Attend Multidisciplinary Rounds? : Yes GILBERT TODD RN-Seismic Engineer - 06/04/2022 13:19 EDT Narrative Progress Note Narrative Progress Note : To dc home with . [employer] to supply PEG tube feeding supplies and educate on tube feeding. Both and decline need for home health. states dtr is nurse and can assist if needed. Historical Progress Note : Patient lives at home with spouse, and is iADLs at baseline. Patient/spouse drive to appointments as needed. Has a cane and a bipap, provided by [employer]. Patient has no history with HH or STR. Needs HH and TFs at discharge, has no preference which companies are used. Agreeable to [facility] and [facility]. Referrals made. Patient's TFs are covered at 100% per [employer] rep. PLAN: Home with home health (referral sent to [facility] for wound care and IT GENERALIST) and tube feeds (referral sent to [employer] - covered at 100%), spouse to transport. Anticipate dc 06/05; HIGH readmission risk CM will continue to follow. Kristen Matias, Rn-Belt Operator - 06/04/22 10:18:28 GILBERT TODD RN-Seismic Engineer - 06/04/2022 13:19 EDT documented in this encounter Plan of Treatment Not on file documented as of this encounter Visit Diagnoses Not on filedocumented in this encounter Care Teams Concrete Pipe Plant Supervisor Relationship Specialty Start Date End Date Mumtaz Larson MD [address] [place] [facility] [address] [place] [address] PCP - General Family Medicine 08/26/22 documented as of this encounter
--- OUTSIDE RECORDS SUMMARY | 2025-06-16 09:42 | XMS_ITS | Encounter Summary ---
Author Organization [employer] ([place], [place], [place], [place]) Address [address] [place] [address] Care Team Providers Care Rn Anesthetist Name Role Phone Mumtaz Larson MD Primary Care Provider + [phone] Encounter Details Date Type Department Care Team (Late st Contact Info) Description 06/03/2022 Transcribed Document [facility] [place] Family Medicine [address] [place] [address] ProviderGabriel MD [address] [place] [address] Social History Tobacco Use Types Packs/Day Years [...] Date Macario rded Speak language other than [place]in[place] at home Not on file 10/29/2023 Want [...] Cerner Conversion Note - Historical Provider, - 06/03/2022 5:00 AM CDT Height and Weight, Routine Entered On: 06/03/2022 5:43 EDT Performed On: 06/03/2022 5:00 EDT by Marie Billy, NON EMP RN Height and Weight, Routine Routine Weight Source : Bed scale Routine Weight Entry Format : Ceiba Routine Weight, Pounds : 200 lb Routine Weight, Ounces : 5 oz Routine Weight Calculation : 91.05 kg Height Source : Stated Height Entry Format : Ceiba Height, Feet : 6 ft Height, Inches : 1 Inch Clinical Height : 185.42 cm Body Surface Area (BSA), Routine : 2.16 m2 Body Mass Index (BMI), Routine : 26.48 kg/m2 Marie Billy NON EMP RN - 06/03/2022 5:43 EDT Electronically signed by Sherri [facility] Conversion Tank Carpenter Cerner at 02/01/2023 7:11 PM CDT documented in this encounter Plan of Treatment Not on file documented as of this encounter Visit Diagnoses Not on filedocumented in this encounter Care Teams Rn Anesthetist Relationship Specialty Start Date End Date Mumtaz Larson MD [address] [facility] [address] [place] [id number] PCP - General Family Medicine 08/26/22 documented as of this encounter
--- OUTSIDE RECORDS SUMMARY | 2025-06-16 09:42 | XMS_ITS | Encounter Summary ---
Author Organization [employer] ([place], [place], [place], [place]) Address [address] [place] [address] Care Team Providers Care Technical Trainer Name Role Phone Mumtaz Larson MD Primary Care Provider + [phone] Encounter Details Date Type Department Care Team (Late st Contact Info) Description 06/03/2022 Transcribed Document [facility] [place] Family Medicine [address] [place] [address] ProviderGabriel MD [address] [place] [address] Social History Tobacco Use Types Packs/Day Years [...] Date Macario rded Speak language other than Tanzanian at home Not on file 10/29/2023 Want [...] Conversion Note - Historical Provider, - 06/03/2022 12:26 PM CDT UM Authorization Entered On: 06/03/2022 12:27 EDT Performed On: 06/03/2022 12:26 EDT by CLAYTON NEWMAN, Sheriff Sergeant Primary Insurance Authorization Authorization and Policy Numbers : Insurance 1 Health Plan: [facility] [employer] Policy Number: [id number] Authorization Number: Insurance Primary Name : [facility] [employer] - [id number] Authorization Status-Primary : Admit approved Reference Number-Primary : [id number] Authorization Number-Primary : [id number] Number of Days Authorized-Primary : 5 Day(s) Authorized Service Begin Date-Primary : 06/01/2022 EDT Authorized Service End Date-Primary : 06/06/2022 EDT Authorization Comments-Primary : Rec fax from [facility] 06/03/22 approved auth# [id number] NRD 06/07/22 Historical Authorization Comments-Primary : Comment 1: ADMISSION [facility]IC[facility] FAXED VIA [facility]. (Temitope Laurent RN 06/02/2022 13:30) Comment 2: Reference number obtained from fax 06/01/22 @ 1554 - Request for clinical. -Amanda Chapman RN. (Kristen Rea, Files Supervisor 06/02/2022 08:29) CLAYTON NEWMAN, Sheriff Sergeant - 06/03/2022 12:26 EDT documented in this encounter Plan of Treatment Not on file documented as of this encounter Visit Diagnoses Not on filedocumented in this encounter Care Teams Technical Trainer Relationship Specialty Start Date End Date Mumtaz Larson MD [address] [facility] [address] [place] [phone] PCP - General Family Medicine 08/26/22 documented as of this encounter
--- OUTSIDE RECORDS SUMMARY | 2025-06-16 09:42 | XMS_ITS | Encounter Summary ---
Author Organization [employer] ([place], [place], [place], [place]) Address [address] [place] [address] Care Team Providers Care Phlebotomy Lab Assistant Name Role Phone Mumtaz Larson MD Primary Care Provider + [phone] Encounter Details Date Type Department Care Team (Late st Contact Info) Description 04/07/2022 Transcribed Document [facility] [place] [address] [place] [address] ProviderGabriel MD [address] [place] [address] Social History Tobacco Use Types Packs/Day Years [...] Date Macario rded Speak language other than Maltese at home Not on file 10/29/2023 Want [...] Conversion Note - Historical Provider, - 04/07/2022 10:41 AM CDT Consult Phone Call Documentation Entered On: 04/07/2022 11:24 EDT Performed On: 04/07/2022 10:41 EDT by BALTAZAR CARLOS Phone Call for Consults Consult, Additional Information : called Pulmonary on 04/07/2022 BALTAZAR CARLOS - 04/07/2022 11:24 EDT Electronically signed by Sherri [facility] Conversion Shoe Polisher Cerner at 02/01/2023 7:07 PM CDT documented in this encounter Plan of Treatment Not on file documented as of this encounter Visit Diagnoses Not on filedocumented in this encounter Care Teams Phlebotomy Lab Assistant Relationship Specialty Start Date End Date Mumtaz Larson MD [address] [place] [facility] [address] [place] [id number] PCP - General Family Medicine 08/26/22 documented as of this encounter
--- OUTSIDE RECORDS SUMMARY | 2025-06-16 09:42 | XMS_ITS | Encounter Summary ---
Author Organization [employer] ([place], [place], [place], [place]) Address [address] [place] [address] Care Team Providers Care Sludge Mill Operator Name Role Phone Mary Larson MD Primary Care Provider + [phone] Encounter Details Date Type Department Care Team (Late st Contact Info) Description 06/02/2022 Transcribed Document [facility] [place] [address] [place] [address] ProviderGabriel MD [address] [place] [address] Social History Tobacco Use Types Packs/Day Years [...] Brant Conversion Note - Historical Provider, - 06/02/2022 11:10 AM CDT Patient: TIEN GARCIA Age: 66 Years Sex: Male : 1955 Chief Complaint c/o increased difficulty swallowing over past 3 days. Hx of Myasthenia Gravis. Recently began taking clindamycin/bactrim. Reason for Consultation PEG History of Present Illness Mr. Garcia is a 66 year old male with history of myasthenia gravis with several recent exacerbations and significant weight loss who presented with increased difficulty swallowing. chronic issues with dysphagia since diagnosis. He has been taking meds PO but has to crush them and put them in water and sip them. He has had continued weight loss, 60 lbs since this started. Abdominal surgeries: umbilical hernia and appendectomy. No use of anticoagulation. Denies aspirin use. Hx of EGD 3-4 years ago for reflux, thinks he has hiatal hernia. takes ppi daily. Therapy Diagnosis, COMPARATOR OPERATOR : Overt pharyngeal dysphagia patterns with significant hypernasality and dysarthria, poor secretion management RECS 1. NPO, consider Corpak for several days 2. Given several recent myasthenia exacerbations and significant weight loss endorsed by pt, feel it is reasonable to consider PEG placement for supplemental nutrition and/or primary nutrition during crises 3. Ice is ok in moderation and after oral care 4. ST will continue to assess for safe return to PO, may be several days given timing of IVIG Review of Systems A complete Review of systems was performed, all other systems were reviewed and are negative except as stated within the HPI. Vital Signs T: 36.5 ??C TMIN: 36.3 ??C TMAX: 36.5 ??C HR: 53(Monitored) RR: 16 BP: 120/82 SpO2: 97% HT: 185.42 cm WT: 93.18 kg BMI: 27.1 Oxygen Settings (Last) Oxygen Therapy Mode: Room air (06/02/22 05:40:00) Physical Exam General: Alert and oriented, well nourished, no acute distress. at bedside. Neurologic: Awake, alert, and oriented X3, CN II-XII intact. mild dysarthria Eye: PERRL, EOMI, normal conjunctiva, no scleral icterus HENT: Normocephalic, normal hearing, dry oral mucosa. Neck: Supple, non-tender, no lymphadenopathy. Lungs: Clear to auscultation, non-labored respiration. Heart: Normal rate, regular rhythm, no murmur, or edema. Abdomen: Soft, non-tender, non-distended, normal bowel sounds, no masses. Musculoskeletal: no joint tenderness or swelling. no obvious deformities. Skin: Skin is warm, dry and pink, no rashes or lesions. Psychiatric: Cooperative, appropriate mood and affect. Assessment/Plan Dysphagia Significant weight loss, 2/2 above Myasthenia gravis -Patient has been NPO. Plan for EGD with PEG placement today. Zosyn on board. No use of oral anticoagulation. Pt. agreeable to EGD with PEG. Risks vs benefits discussed, such as bleeding, perforation, infection, reaction to anaesthesia, missed lesion, complication requiring additional surgery or procedures, failure to be able to complete procedure. Discussed that PEG placement does not cure any disease and does not prevent aspiration. Pt will have additional opportunity to discuss this with the ordering/performing physician and have additional questions asked/answered prior to the procedure. GI Consult above was performed by Deena Kevin PA-C and discussed with Dr. Finley. Provider Information Primary Care Physician - MARY L[facility]SON (REF[facility] Attending Physician - RAFA ALEXANDER DO-INT Admitting Physician - RAFA ALEXANDER DO-BOAZ Consulting Physician - PILLO CORNELL MD-TEETEE - MG exacerbation, dysphagia Consulting Physician - PILLO GAINES MD-ORT - R elbow Consulting Physician - SRAVAN HIDALGO MD-NEU Consulting Physician - ROCAEL FINLEY MD - PEG, dysphagia, 60 lb wt loss Referring Physician - PHY, SELF REFERRED Problem List/Past Medical History Ongoing Allergic rhinitis Arthritis Bronchitis Diabetes mellitus type II GERD - Gastro-esophageal reflux disease Hard of hearing High blood pressure History of obstructive sleep apnea Microscopic colitis Prostate cancer Historical No qualifying data Procedure/Surgical History ASSISTANCE WITH RESP VENTILATION, <24 HRS, HIGH NASAL FL SHUBHAM (04/13/2022), ASSISTANCE WITH RESPIRATORY VENTILATION, <24 HRS, CPAP (04/13/2022), INSERTION OF FEEDING DEVICE INTO STOMACH, PERC APPROACH (04/09/2022), INSERTION OF INFUSION DEV INTO SUP VENA CAVA, PERC APPROACH (04/09/2022), ASSISTANCE WITH RESPIRATORY VENTILATION, >96 HRS, CPAP (04/08/2022), ULTRASONOGRAPHY OF HEART WITH AORTA (04/07/2022), FUSION LUM JT W AUTOL SUB, POST APPR A COL, OPEN (10/02/2020), MONITOR PERIPHERAL NERVOUS ELECTR ACTIVITY, INTRAOP, ADMISSIONS ADVISOR (10/02/2020), RESECTION OF LUMBAR VERTEBRAL DISC, OPEN APPROACH (10/02/2020), Appendectomy, Brachytherapy, hand surgery, knee scope, umbilical hernia repair. Medications Inpatient allopurinol, 300 mg= 1 Tab, Oral, Daily chlorthalidone, 25 mg= 1 Tab, Oral, Daily cholecalciferol, 10 mcg, Oral, Daily Dextrose 50% injection, 25 Gram= 50 mL, IV Push, Q15Min, PRN Dextrose 50% injection, 25 Gram= 50 mL, IV Push, Q15Min, PRN Dextrose 50% injection, 25 Gram= 50 mL, IV Push, Q15Min, PRN Dextrose 50% injection, 12.5 Gram= 25 mL, IV Push, Q15Min, PRN Flonase, 1 [place], Nostrils Both, Daily glucagon, 1 mg= 1 mL, IntraMuscular, Q15Min, PRN glucose 4 g oral tablet, chewable, 16 Gram= 4 Tab, Chew, Q15Min, PRN glucose 40% oral gel, 15 Gram= 37.5 mL, Oral, Q15Min, PRN insulin regular sliding scale, Scale A, SubCutaneous, Q6H levothyroxine, 50 mcg= 1 Tab, Oral, Daily Lovenox, 40 mg= 0.4 mL, SubCutaneous, [id number] Mestinon, 60 mg= 5 mL, Oral, QID mycophenolate mofetil, 500 mg= 2.5 mL, Oral, BID Normal Saline 1,000 mL, 1000 mL, IntraVENous Os-Viral 500 + D, 1 Tab, Oral, BID pantoprazole, 40 mg= 1 Tab, Oral, Daily potassium bicarbonate, 20 mEq= 1 Tab, Oral, BID pramipexole, 0.25 mg= 1 Tab, Oral, At Bedtime predniSONE, 50 mg= 1 Tab, Oral, Daily QUEtiapine, 50 mg= 2 Tab, Oral, BID Tenormin, 100 mg= 2 Tab, Oral, Daily TriCor 145 mg oral tablet, 145 mg= 1 Tab, Oral, Daily vancomycin + Sodium Chloride 0.9% intravenous solution 250 mL Zosyn + Sodium Chloride 0.9% intravenous solution 100 mL Home allopurinol 300 mg oral tablet, 300 mg= 1 Tab, Oral, Daily atenolol-chlorthalidone 100 mg-25 mg oral tablet, 1 Tab, Oral, Daily calcium (as carbonate)-vitamin D 500 mg-2.5 mcg (100 intl units) oral tablet, chewable, 1 Tab, Chew, BID clindamycin 300 mg oral capsule, 300 mg= 1 Cap, Oral, Q6H Cymbalta 60 mg oral delayed release capsule, 120 mg= 2 Cap, Oral, Daily Flonase, 1 [place], Nostrils Both, Daily levothyroxine 50 mcg (0.05 mg) oral tablet, 50 mcg= 1 Tab, Oral, Daily MetFORMIN (Eqv-Glucophage XR) 500 mg oral tablet, extended release, 500 mg= 1 Tab, Oral, Daily mycophenolate mofetil 500 mg oral tablet, 500 mg= 1 Tab, Oral, BID Potassium Chloride (Zfs-Nkoe-Mwl M20) 20 mEq oral tablet, extended release, 20 mEq= 1 Tab, Oral, BID pramipexole 0.25 mg oral tablet, 0.25 mg= 1 Tab, Oral, At Bedtime predniSONE 50 mg oral tablet, 50 mg= 1 Tab, Oral, Daily PriLOSEC 20 mg oral delayed release capsule, 20 mg= 1 Cap, Oral, Daily pyridostigmine 60 mg oral tablet, 60 mg= 1 Tab, Oral, QID QUEtiapine 50 mg oral tablet, 50 mg= 1 Tab, Oral, BID sulfamethoxazole-trimethoprim 800 mg-160 mg oral tablet, 1 Tab, Oral, BID TriCor 145 mg oral tablet, 145 mg= 1 Tab, Oral, Daily Vitamin D3 400 units oral tablet, 10 mcg= 1 Tab, Oral, Daily Allergies No Known Medication Allergies Social History Alcohol Alcohol Use History No. Use in Last 12 Months: No. Substance Abuse Drug Use Hx: No. Use in Last 12 Months: No. Tobacco Former smoker, quit more than 30 days ago Smoking Status. Never Smokeless Tobacco Status. None Smokeless Tobacco Use History. Last Used: quit in the 80s . Family History no known gi disease or malignancy Diagnostic Results Reason For Exam Pain REPORT FOUR-VIEW RIGHT ELBOW HISTORY: Infected elbow, swelling and redness. COMPARISON: None. FINDINGS: There is no apparent joint effusion. There is no fracture, dislocation or other acute abnormality of bone. A small well-corticated ossicle posterior to the olecranon is considered a normal variant. Significant soft tissue swelling is seen throughout the elbow, particularly posteriorly. IMPRESSION: No acute osseous abnormality. Soft tissue swelling. Lab Results Test Name Test Result Date/Time Sodium Level 134 mmol/L (Low) 06/02/2022 10:35 EDT Sodium Level 131 mmol/L (Low) 06/01/2022 11:48 EDT Potassium Level 3.9 mmol/L 06/02/2022 10:35 EDT Potassium Level 3.2 mmol/L (Low) 06/01/2022 11:48 EDT Chloride Level 101 mmol/L (Low) 06/02/2022 10:35 EDT Chloride Level 101 mmol/L (Low) 06/01/2022 11:48 EDT Carbon Dioxide Level 27 mmol/L 06/02/2022 10:35 EDT Carbon Dioxide Level 20 mmol/L (Low) 06/01/2022 11:48 EDT Anion Gap 10 06/02/2022 10:35 EDT Anion Gap 13 06/01/2022 11:48 EDT Glucose Level 111 mg/dL (High) 06/02/2022 10:35 EDT Glucose Level 109 mg/dL (High) 06/01/2022 11:48 EDT Blood Urea Nitrogen 13 mg/dL 06/02/2022 10:35 EDT Blood Urea Nitrogen 14 mg/dL 06/01/2022 11:48 EDT Creatinine Level 0.80 mg/dL 06/02/2022 10:35 EDT Creatinine Level 0.80 mg/dL 06/01/2022 11:48 EDT eGFR >60 mL/min/1.73m2 06/02/2022 10:35 EDT eGFR >60 mL/min/1.73m2 06/01/2022 11:48 EDT eGFR NonAfrican >60 mL/min/1.73m2 06/02/2022 10:35 EDT eGFR NonAfrican >60 mL/min/1.73m2 06/01/2022 11:48 EDT Bun/Creatinine 16.2 06/02/2022 10:35 EDT Bun/Creatinine 17.5 06/01/2022 11:48 EDT Calcium Level 9.0 mg/dL 06/02/2022 10:35 EDT Calcium Level 9.1 mg/dL 06/01/2022 11:48 EDT Protein Total 7.1 Gram/dL 06/01/2022 11:48 EDT Albumin Level 3.3 Gram/dL (Low) 06/01/2022 11:48 EDT Globulin 3.8 Gram/dL 06/01/2022 11:48 EDT A/G Ratio 0.9 (Low) 06/01/2022 11:48 EDT Bilirubin Total 0.8 mg/dL 06/01/2022 11:48 EDT Alk Phos 58 Units/Liter 06/01/2022 11:48 EDT AST 18 Units/Liter 06/01/2022 11:48 EDT ALT 25 Units/Liter 06/01/2022 11:48 EDT Device Comment 1 Notified Nurse RBV 06/02/2022 00:07 EDT Device Comment 1 Notified Nurse RBV 06/01/2022 18:11 EDT Device Comment 2 Notified MD RBV 06/01/2022 18:11 EDT Glucose POC2 172 mg/dL (High) 06/02/2022 00:07 EDT Glucose POC2 177 mg/dL (High) 06/01/2022 18:11 EDT Lactic Acid Level 1.4 mmol/L 06/01/2022 11:48 EDT WBC 10.3 K/uL (High) 06/02/2022 10:35 EDT WBC 12.5 K/uL (High) 06/01/2022 11:48 EDT RBC 5.34 Million/uL 06/02/2022 10:35 EDT RBC 5.62 Million/uL 06/01/2022 11:48 EDT Hgb 15.7 g/dL 06/02/2022 10:35 EDT Hgb 16.5 g/dL 06/01/2022 11:48 EDT Hct 46.3 % 06/02/2022 10:35 EDT Hct 48.4 % 06/01/2022 11:48 EDT MCV 86.7 fL 06/02/2022 10:35 EDT MCV 86.1 fL 06/01/2022 11:48 EDT MCH 29.4 pg 06/02/2022 10:35 EDT MCH 29.4 pg 06/01/2022 11:48 EDT MCHC 33.9 Gram/dL 06/02/2022 10:35 EDT MCHC 34.1 Gram/dL 06/01/2022 11:48 EDT Platelet Count 390 K/uL (High) 06/02/2022 10:35 EDT Platelet Count 406 K/uL (High) 06/01/2022 11:48 EDT MPV 9.3 fL (Low) 06/02/2022 10:35 EDT MPV 9.6 fL 06/01/2022 11:48 EDT RDW 13.5 % 06/02/2022 10:35 EDT RDW 13.4 % 06/01/2022 11:48 EDT Neut % 81.9 % (High) 06/01/2022 11:48 EDT Neut # 10.26 K/uL (High) 06/01/2022 11:48 EDT Lymph % 10.7 % (Low) 06/01/2022 11:48 EDT Lymph # 1.34 x10(3)/uL 06/01/2022 11:48 EDT [place] % 6.2 % 06/01/2022 11:48 EDT [place] # 0.78 K/uL 06/01/2022 11:48 EDT Eos % 0.6 % 06/01/2022 11:48 EDT Eos # 0.08 x10(3)/uL 06/01/2022 11:48 EDT Baso % 0.2 % 06/01/2022 11:48 EDT Baso # 0.03 x10(3)/uL 06/01/2022 11:48 EDT Slide Review No 06/02/2022 10:35 EDT Slide Review No 06/01/2022 11:48 EDT IG# 0.05 x10(3)/uL 06/01/2022 11:48 EDT IG% 0.40 % 06/01/2022 11:48 EDT Procalcitonin <0.25 ng/mL 06/01/2022 16:37 EDT Electronically signed by [facility], [facility] Conversion Chip Unloader Cerner at 02/01/2023 6:49 PM CDT documented in this encounter Plan of Treatment Not on file documented as of this encounter Visit Diagnoses Not on filedocumented in this encounter Care Teams Sludge Mill Operator Relationship Specialty Start Date End Date Mary Larson MD [address] [facility] [address] [place] [phone] PCP - General Family Medicine 08/26/22 documented as of this encounter
--- OUTSIDE RECORDS SUMMARY | 2025-06-16 09:42 | XMS_ITS | Encounter Summary ---
Author Organization [employer] ([place], [place], [place], [place]) Address [address] [place] [address] Care Team Providers Care Holter Scanning Technician Name Role Phone Mumtaz Larson MD Primary Care Provider + [phone] Encounter Details Date Type Department Care Team (Late st Contact Info) Description 04/15/2022 Transcribed Document [facility] Pulm & Critical Care Medicine [address] [facility] [address] [place] [id number] Teo Pimentel MD [address] [facility] [address] [place] [address] Social History Tobacco Use Types Packs/Day Years [...] Conversion Note - Teo Pimentel MD - 04/15/2022 1:20 PM EDT Patient: TIEN GARCIA Age: 66 years Sex: Male : 1955 Associated Diagnoses: None Author: TOE PIMENTEL MD REQ: Dr Steele RE: Myesthenia [...] fevers. Tube feeds per Corpak. BM+ today. 04/15: Patient seen and examined on 4L HFNC. He is awake and alert and resting in the chair. Anxiety continues to improve. VC 1.5L, and NIF -40 today. He continues to remain hemodyanmically stable and afebrile. QTC today 637. He is tolerating both TF via corpak, and PO diet. BM 04/14. LFTs trending down today as well. He has had 695ml of UOP for overall fluid balance of -568ml. ICU day: 7 PICC 04/09 Review of Systems Unable to obtain Health Status Current medications: Medications (51) Active Scheduled: (20) #NaCl 0.9% *FLUSH* inj 10 mL 10 mL, IV Push, Q12H #NaCl 0.9% *FLUSH* inj 10 mL 10 mL, IntraCATHeter, Q12H allopurinol 300 mg tab 300 mg 1 Tab, Oral, Daily amLODIPine 5 mg tab 5 mg 1 Tab, Oral, Daily chlorthalidone 25 mg tab [...] mg 3 Tab, Oral, Daily pyridostigmine 60 mg tab 90 mg 1.5 Tab, Oral, TID senna 8.8 mg/5 mL liq 8.8 mg 5 mL, Oral, BID tamsulosin CR 0.4 mg cap 0.4 mg 1 Cap, Oral, Daily Continuous: (1) NaCl 0.9% 1,000 mL 1,000 mL, IntraVENous, 50 mL/Hr PRN: (30) #NaCl 0.9% *FLUSH* inj 10 mL 10 [...] 10 mEq 50 mL, IV Piggyback, Q1H simethicone 40 mg/0.6 mL liq 15 mL 20 mg 0.3 mL, Oral, Q6H sodium phosphate 15 mMole 5 mL, IV Piggyback, Daily sodium phosphate 15 mMole 5 mL, IV Piggyback, Q6H zolpidem 5 mg tab 5 mg 1 Tab, Oral, At Bedtime Physical Examination VS/Measurements Vitals Signs (last 24 hrs) Last Charted Minimum Maximum Temp 98.0 (APR 15 08:00) 98.0 (APR 15 08:00) 98.8 (APR 14 15:00) Mon HR 105 (APR 15 12:00) 93 (APR 15 02:00) 146 (APR 14 14:00) Resp Rate H 26 (APR 15 12:00) 15 (APR 15 05:46) H 38 (APR 14 15:55) SBP 132 (APR 15 12:00) 100 (APR 15 05:00) H 144 (APR 15 11:00) DBP H 92 (APR 15 12:00) 65 (APR 15 02:00) H 99 (APR 15 07:00) MAP 106 (APR 15 12:00) 76 (APR 14 13:00) 113 (APR 15 11:00) SpO2 97 (APR 15 12:00) L 73 (APR 14 13:00) 98 (APR 15 11:00) Intake & Output Totals Last 24 Hours (7a-7a) Intake (15 Events) Medications (126.3 mL) Output (2 Events) Varela Catheter (695 mL) Input Total: 126.3 mL Output Total: 695 mL Balance: -568.7 mL General: Alert and oriented, No acute distress, on 4L NC. Eye: Pupils are equal, round and reactive to light, Normal conjunctiva, R eye ptosis. HENT: Normocephalic, Oral mucosa is moist. Neck: Supple, No lymphadenopathy. Respiratory: Dec bilateral bases, no rhonchi or wheezing. Cardiovascular: Normal rate, Regular rhythm, No edema. Gastrointestinal: Soft, Non-tender, Non-distended, Normal bowel sounds. Genitourinary: Support: Urinary catheter ( Indwelling ). Integumentary: Warm, Dry, [place]. Neurologic: Alert, Oriented. Psychiatric: Cooperative, Appropriate mood & affect. Review / Management Results review: Labs (Last four charted values) WBC 7.4 (MAR 29) 6.4 (VERO 28) 5.1 (VERO 27) 5.2 (VREO 26) HB 16.0 (VERO 29) 16.3 (VERO 28) 14.0 (VERO 27) 13.8 (VERO 26) HCT 47.7 (VERO 29) 49.6 (VERO 28) 42.8 (VERO 27) 41.3 (VERO 26) Plt L 151 (VERO 29) L 143 (VERO 28) L 132 (VERO 27) L 137 (VERO 26) Na 138 (VERO 29) 138 (VERO 28) 140 (VERO 28) 140 (VERO 27) K L 3.3 (VERO 29) L 3.3 (VERO 28) L 3.3 (VERO 28) 3.7 (VERO 27) Cl L 99 (VERO 29) 102 (VERO 28) L 101 (VERO 28) 102 (VERO 27) CO2 H 33 (VERO 29) H 34 (VERO 28) H 33 (VERO 28) H 33 (VERO 27) BUN H 31 (VERO 29) H 29 (VERO 28) H 28 (VERO 28) 21 (VERO 27) Cr 0.70 (VERO 29) 0.90 (VERO 28) 0.80 (VERO 28) 0.80 (VERO 27) Glu R H 126 (VERO 29) H 132 (VERO 28) H 129 (VERO 28) H 117 (VERO 27) Ca 9.0 (VERO 29) 9.1 (VERO 28) 8.9 (VERO 28) L 8.2 (VERO 27) Lactic 1.1 (VERO 29) PT 11.4 (VERO 26) INR 1.1 (APR 12) AST H 61 (APR 15) H 127 (APR 14) H 221 (APR 12) H 224 (APR 11) ALT H 395 (APR 15) H 573 (APR 14) H 528 (APR 12) H 367 (APR 11) ALK P 69 (APR 15) 75 (APR 14) 60 (APR 12) 55 (APR 11) T Bili 1.0 (APR 15) 1.1 (APR 14) 1.2 (APR 12) H 1.5 (APR 11) PTN 7.4 (APR 15) 7.8 (APR 14) 7.5 (APR 12) 6.8 (APR 11) ALB L 2.4 (APR 15) L 2.6 (APR 14) L 2.7 (APR 12) L 2.7 (APR 11) . Blood Gases (Current Encounter/Past 24 Hours) No Blood Gas Results Found (Past 24 Hours) Radiology Results (Last 48 hours) [id number] -- 04/06/2022 15:42 CR Chest 1 Vw Portable (04/15/2022 04:05) Result: PORTABLE CHEST 04/15/2022 6:00 AM HISTORY: Shortness of breath.COMPARISON: April 13, 2022.FINDINGS: The heart is stable in size. The lung grewal demonstrate nosignificant change in the bibasilar atelectasis. There is nopneumothorax . The support devices are in good position .IMPRESSION: There has been no significant interval change . Continued follow-up recommended .Images reviewed, interpreted, and dictated by Dr. Bassam Hernández.Transcribed by Joni Rea PA-C.I have personally viewed, interpreted and dictated the examination. Ihave read and agree with the above final transcribed report. Mechanics 04/08 NIFs -40 x 3 with VC 1.1, .8, .91 04/07 1700 -10 x3 and VC 1.13, 1.46, 1. 5 04/10 NIF -40, VC .590 04/11 NIF -40, VC .390 04/12 VC 900mL 04/13 VC 1.0L 04/14 VC 1.25L 04/15 VC 1.5L, NIF -40 Impression and Plan Pulmonary Acute Respiratory Failure, [...] 65%, small posterior pericardial effusion Endocrine DM Heme Thrombocytopenia Plan Supplemental o2 as needed keep sats 90-94%, currently on 4L NC Daily VC/NIF May use Optiflo if needed Keep HOB elevated Neuro following MRI pending (patient is currently unable to tolerate laying flat) Acetylcholine husbandry person studies Elevated On Mestinon 90mg TID Also receiving Solumedrol and IVIG day #5--Now Prednisone 60mg Daily and Completed IVIG Serax 10mg PO BID Seroquel (home med)--400mg BID- STOP TODAY due to prolong QTc QTC daily, 637 today Glycemic control: on correction insulin, target glucose 140-180 mg/dL Nutrition: TF via corpak (terminates in stomach), Speech consulted to evaluate Swallow Replace Potassium 40meq PO; Recheck level per protocol Mg supplemented Bowel regimen added Prophylaxis: Heparin and Pepcid At risk for respiratory complications 45 minutes critical care time excluding procedures. Discussed with DYE BOX OPERATOR and RN CODE STATUS: FULL CODE Disposition: ICU documented in this encounter Plan of Treatment Not on file documented as of this encounter Visit Diagnoses Not on filedocumented in this encounter Care Teams Holter Scanning Technician Relationship Specialty Start Date End Date Mumtaz Larson MD [address] [place] [facility] [address] [place] [phone] PCP - General Family Medicine 08/26/22 documented as of this encounter
--- OUTSIDE RECORDS SUMMARY | 2025-06-16 09:42 | XMS_ITS | Encounter Summary ---
Author Organization [employer] ([place], [place], [place], [place]) Address [address] [place] [address] Care Team Providers Care Power Plant Manager Name Role Phone Mumtaz Larson MD Primary Care Provider + [phone] Encounter Details Date Type Department Care Team (Late st Contact Info) Description 04/15/2022 Transcribed Document [facility] [place] Family Medicine [address] [place] [address] ProviderGabriel MD [address] [place] [address] Social History Tobacco Use Types Packs/Day Years [...] Date Macario rded Speak language other than [place] Islander at home Not on file 10/29/2023 [...] Cerner Conversion Note - Historical Provider, - 04/15/2022 9:51 AM CDT Patient: TIEN GARCIA Age: 66 years Sex: Male : 1955 Associated Diagnoses: None Author: SRAVAN HIDALGO MD-TEETEE Subjective Pt continues to improve; passed swallow evaluation for regular diet today. Denies shortness of breath; anxious to get more mobile Objective VS/Measurements Vital Signs/Vital Measures 04/15/2022 9:00 EDT Systolic Blood Pressure 127 mmHg Diastolic Blood Pressure 83 mmHg Heart Rate Monitored 104 bpm HI 04/15/2022 8:00 EDT Temperature, Fahrenheit 98.0 Deg F General: awake and alert, in no distress; speech is mildly nasal, fluent with minimal dysarthria. Eye: Pupils are equal, round and reactive to light, Extraocular movements are intact, R ptosis noted- improving. Respiratory: Respirations are non-labored. Cardiovascular: Normal rate, Regular rhythm. Neurologic: R ptosis with mild facial weakness; CN otherwise intact. Motor strength is 5/5 throughout, sensation intact, no ataxia. Psychiatric: Cooperative. Results Review Labs reviewed Impression and Plan 66yo M admitted with new onset dysphagia, dysarthria as well as ptosis and shortness of breath; he was diagnosed with viral meningitis about a month ago which was self limited, cultures and PCR from CSF were negative. Clinical exam is consistent with myasthenia gravis; this has been confirmed by positive AchR antibody testing. He has responded well to IV Ig and high dose steroids, significantly improved in the last several days; he is currently on prednisone 60mg daily and Mestinon 90mg tid. Plan to taper prednisone by 10mg/week until he can follow up with neurology as an outpatient on 05/13; continue Mestinon at current dose. Recommend to continue PT/OT, may benefit from inpatient rehab given debility after prolonged hospital stay. Plan discussed with patient and son in room; I will continue to follow during hospital stay. documented in this encounter Plan of Treatment Not on file documented as of this encounter Visit Diagnoses Not on filedocumented in this encounter Care Teams Power Plant Manager Relationship Specialty Start Date End Date uMmtaz Larson MD [address] [facility] [address] [place] [phone] PCP - General Family Medicine 08/26/22 documented as of this encounter
--- OUTSIDE RECORDS SUMMARY | 2025-06-16 09:42 | XMS_ITS | Encounter Summary ---
Author Organization [employer] ([place], [place], [place], [place]) Address [address] [place] [address] Care Team Providers Care Laundry Operator Wash Room Name Role Phone Mumtaz Larson MD Primary Care Provider + [phone] Encounter Details Date Type Department Care Team (Late st Contact Info) Description 04/08/2022 Transcribed Document [facility] [place] [address] [place] [address] ProviderGabriel MD [address] [place] [address] Social History Tobacco Use Types Packs/Day Years [...] Date Macario rded Speak language other than Chilean at home Not on file 10/29/2023 Want [...] Cerner Conversion Note - Historical ProviderMD - 04/08/2022 2:00 AM CDT Case Manager Specialist Details Entered On: 04/08/2022 2:17 EDT Performed On: 04/08/2022 2:00 EDT by Kerry Singer Non Emp RN Order Details Transport Mode Order Detail : Wheelchair Order Detail : N/A IV Order Detail : 1 Oxygen Order Detail : 1 Nurse Collect Order Detail : 0 Lift/Transfer : Independent Central Line Order Detail : No Room Service : Appropriate Arterial Line : No Patient Needs Meds Crushed/Liquid : No Kerry Singer Non Emp RN - 04/08/2022 2:17 EDT Electronically signed by Sherri [facility] Conversion Tufting Machine Fixer Cerner at 02/01/2023 6:55 PM CDT documented in this encounter Plan of Treatment Not on file documented as of this encounter Visit Diagnoses Not on filedocumented in this encounter Care Teams Laundry Operator Wash Room Relationship Specialty Start Date End Date Mumtaz Larson MD [address] [facility] [address] [place] [id number] PCP - General Family Medicine 08/26/22 documented as of this encounter
--- OUTSIDE RECORDS SUMMARY | 2025-06-16 09:42 | XMS_ITS | Encounter Summary ---
Author Organization [employer] ([place], [place], [place], [place]) Address [address] [place] [address] Care Team Providers Care Booth Cashier Name Role Phone Mumtaz Larson MD Primary Care Provider + [phone] Encounter Details Date Type Department Care Team (Late st Contact Info) Description 04/12/2022 Transcribed Document [facility] [place] Family Medicine [address] [place] [address] ProviderGabriel MD [address] [place] [address] Social History Tobacco Use Types Packs/Day Years [...] Date Macario rded Speak language other than Sammarinese at home Not on file 10/29/2023 Want [...] Cerner Conversion Note - Historical Provider, - 04/12/2022 1:41 PM CDT Patient: TIEN GARCIA Age: 66 Years Sex: Male : 1955 Assessment 66yo M admitted with new onset dysphagia, dysarthria, shortness of breath and ptosis. Labs support myasthenia gravis, AchR antibodies 7.3, blocking 53, see below for further details. There is been some response with continued improvement on Mestinon, IVIG day 5, and steroids. Continues to be BiPAP dependent. Dr. Mccullough returns tomorrow. I would like to be notified of any significant change in Neuro status. Further recommendations will be based on test results, family day care worker communication, and clinical course. Ordered Stop IVIG Subjective Stable Presentation: symptoms worsened after [...] gravis; other possibilities would include paraneoplastic disorder, LEAD DATA ENTRY OPERATOR infection including tick or mosquito-borne illness, LEAD DATA ENTRY OPERATOR malignancy, inflammatory disorder such as sarcoid, acute [...] thrombi Studies personally reviewed Electronically signed by Sherri [facility] Conversion Filler Shredding Machine Loader Cerner at 02/01/2023 6:50 PM CDT documented in this encounter Plan of Treatment Not on file documented as of this encounter Visit Diagnoses Not on filedocumented in this encounter Care Teams Booth Cashier Relationship Specialty Start Date End Date Mumtaz Larson MD [address] [place] [facility] [address] [place] [phone] PCP - General Family Medicine 08/26/22 documented as of this encounter
--- OUTSIDE RECORDS SUMMARY | 2025-06-16 09:42 | XMS_ITS | Encounter Summary ---
Author Organization [employer] ([place], [place], [place], [place]) Address [address] [place] [address] Care Team Providers Care Insole Rounder Name Role Phone Mumtaz Larson MD Primary Care Provider + [phone] Encounter Details Date Type Department Care Team (Late st Contact Info) Description 04/08/2022 Transcribed Document [facility] [place] [address] [place] [address] ProviderGabriel MD [address] [place] [address] Social History Tobacco Use Types Packs/Day Years [...] Conversion Note - Historical Provider, - 04/08/2022 1:26 PM CDT Patient: TIEN GARCIA Age: 66 years Sex: Male : 1955 Associated Diagnoses: None Author: GIORGIO MORENO MD REQ: Dr Steele RE: Myesthenia Gravis [...] as well as vital capacity stat now. Review of Systems Constitutional: Weakness, Decreased activity, No fever. Eye: Negative. Ear/Nose/Mouth/Throat: Negative. Respiratory: Shortness of breath, No cough. Cardiovascular: No chest pain. Gastrointestinal: No abdominal pain. Genitourinary: Negative. Musculoskeletal: denies current pain. Integumentary: No rash. Neurologic: Alert and oriented X4. Psychiatric: Negative. Health Status Allergies: Allergic Reactions (Selected) No [...] Sodium Chloride 0.9% intravenous solution 250 mL: 15 mMole, 5 mL, 63.75 mL/Hr, IV Piggyback, Q4H pyridostigmine: 2 mg, IV Push, TID Documented [...] Cap, Oral, Daily, 0 Refill(s) Flonase: 1 [place], Nostrils Both, Daily, 0 Refill(s) MetFORMIN (Eqv-Glucophage [...] potassium phosphate + NaCl 0.9% 250 mL 15 mMole 5 mL, IV Piggyback, Q4H pyridostigmine 5 mg/mL inj 2 mL 2 [...] list: Medical Allergic rhinitis / SNOMED CT 260241389 / Confirmed Hard of hearing / SNOMED CT 063329154 / Confirmed High blood pressure / SNOMED CT 08659660 / Confirmed Bronchitis / SNOMED CT 05933043 / Confirmed GERD - Gastro-esophageal reflux disease / SNOMED CT 3455502907 / Confirmed Microscopic colitis / SNOMED CT 415553019 / Confirmed Arthritis / SNOMED CT 7547026 / Confirmed Diabetes mellitus type II / SNOMED CT 05397791 / Confirmed Prostate cancer / SNOMED CT 5331009631 / Confirmed History of obstructive sleep apnea / IMO 36387748 / Confirmed, Active Problems (10) Allergic rhinitis Arthritis Bronchitis Diabetes mellitus type II GERD - Gastro-esophageal reflux disease Hard of hearing High blood pressure History of obstructive sleep apnea Microscopic colitis Prostate cancer Physical Examination VS/Measurements Vitals Signs (last 24 hrs) Last Charted Minimum Maximum Temp 98.0 (APR 08 09:18) 97.8 (APR 08 06:06) 98.3 (APR 07 21:33) Apical HR 88 (APR 08 10:24) 88 (APR 08 10:24) 88 (APR 08 10:24) Mon HR 100 (APR 08 13:13) 74 (APR 08 09:18) 109 (APR 07 21:33) Resp Rate 16 (APR 08 13:13) 16 (APR 07 21:33) H 28 (APR 08 13:03) SBP H 165 (APR 08 09:18) 130 (APR 07 21:00) H 167 (APR 08 06:06) DBP 89 (APR 08 09:18) 86 (APR 08 06:06) H 106 (APR 08 01:02) MAP 124 (APR 08 09:18) 103 (APR 07 21:33) 147 (APR 08 06:06) SpO2 L 93 (APR 08 13:13) L 86 (APR 08 06:06) 99 (APR 07 14:52) General: Moderate distress, 2LNC. Eye: Pupils are equal, round and reactive to light, Normal conjunctiva, R eye droopiness. HENT: Normocephalic, Oral mucosa is moist. Neck: Supple, No lymphadenopathy. Respiratory: dec bilateral bases, intermit accessory muscle use/abdominal use. Cardiovascular: Normal rate, Regular rhythm, No edema. Gastrointestinal: Soft, Non-tender, Non-distended, Normal bowel sounds. Integumentary: Warm, Dry, [place]. Neurologic: Alert, Oriented, able to supervisor fabrication department bilateral and wiggle toes, R eyelid droop noted he is speaking however difficulty articulating clearly secondary tongue movement issues. Psychiatric: Cooperative, Appropriate mood & affect. Review / Management Results review: Labs (Last four charted values) WBC 7.0 (APR 08) H 11.3 (VERO 21) H 15.6 (VERO 20) HB 17.1 (VERO 22) 16.7 (VERO 21) H 17.6 (VERO 20) HCT 50.8 (VERO 22) 50.7 (VERO 21) H 52.3 (VERO 20) Plt 356 (VERO 22) 362 (VERO 21) 329 (VERO 20) Na 138 (VERO 22) 138 (VERO 21) 138 (VERO 20) K L 3.4 (VERO 22) 3.6 (VERO 21) L 3.2 (VERO 20) Cl 107 (VERO 22) 103 (VERO 21) 102 (VERO 20) CO2 22 (VERO 22) 25 (VERO 21) 23 (VERO 20) BUN 17 (VERO 22) 15 (VERO 21) 13 (VERO 20) Cr 0.70 (VERO 22) 0.70 (VERO 21) 0.80 (VERO 20) Glu R H 167 (VERO 22) 105 (VERO 21) H 127 (MAR 20) Ca 9.1 (APR 08) 9.0 (APR 07) 9.1 (MAR 20) AST H 39 (APR 08) 26 (VERO 20) ALT 49 (APR 08) 31 (VERO 20) ALK P 73 (APR 08) 64 (VERO 20) T Bili 1.1 (APR 08) 0.7 (VERO 20) PTN 7.7 (APR 08) 8.0 (APR 06) ALB 3.7 (APR 08) 4.4 (APR 06) . APR 07 08:22 138 103 15 / 105 3.6 25 0.70 \ APR 08 07:12 \ 17.1 / 7.0 356 / 50.8 \ Radiology Results (Last 48 hours) [id number] -- 04/06/2022 15:42 CR Chest 1 Vw [...] dictated by Dr. Bassam Hernández.Transcribed by Kristina Hand(Harleen).I have personally viewed, interpreted and dictated the [...] with the above final transcribed report. Mechanics 1220 today NIFs -40 x 3 with VC 1.1, .8, .91 yesterday 1700 -10 x3 and VC 1.13, 1.46, 1. 5 Impression and Plan 1. Acute Respiratory Failure, hypoxemic in setting of neuromuscular issues, being evaluated for Myasthenia Gravis Left lower lobe opacity. Pneumonia in the left lower lobe can not be excluded. BRETT history. 2. Neuro neuromuscular issues being evaluated for Myasthenia Gravis. Myasthenia gravis crisis dysphagia and difficulty with speech/tongue movements recent admit outlying and treatment for viral meningitis reported CT from outlying report on chart reports small bilateral basal ganglia lacunar infarcts, believed to be chronic on 04/04-defer to neurology 3. ID leukocytosis recent treatment viral meningitis. 4. Cardiac HTN no recent echo review. 5. DM 6. Prophylaxis Plan Supplemental o2 as needed keep sats 92-96%,Patient satting 89 on 2 L with increased oxygen to 4 L with moderate respiratory distress vital capacity visit on 1 L. Initial NIF as reported by the RT was not good we will repeat NIF to get the number now. Will move patient to ICU for close and frequent observation. Continue with mechanics Q 8 H, will start patient on BiPAP. We will continue for 4 hours for now Chest x-ray reviewed independently showed improvement of left lower lobe opacity Every 8 hours NIF, vital capacity. Keep HOB elevated Uncontrolled hypertension, recommend target systolic blood pressure less than 160. Neuro in process of evaluating MRI pending acetylcholine human resources receptionist studies pending On Mestinon Has orders for Solumedrol and IVIG Has been ordered Seroquel per Neurology Glycemic control, on correction insulin, target glucose 140-180 mg/dL. Currently not on DVT/ GI prophylaxis- add SCUDs AM orders placed Plan of care was discussed with the primary team. Chest x-ray finding discussed with primary team. Labs reviewed leukocytosis, on 2 L oxygen desats down to 92, mild tachycardia no fever Echo noted ejection fraction 65% Patient reported history of dysarthria for the last 1 week along with some difficulty in swallowing with some weakness by the end of the day. was at the bedside questions and concerns were addressed. as well as patient reported feeling better after treatment started by neurology. Initially patient stated that his breathing is [...] as well as vital capacity stat now. I have personally evaluated the patient; Obtained history, performed physical examination, reviewed laboratory studies. I have reviewed images independent of radiologist. I have actively directed the medical care, formulated diagnosis, and the plan of care. Patient requires a high complexity of decision making for assessment. 31 minutes critical care time excluding procedures. Electronically signed by Interface, [facility] Conversion Jewelry Salesperson Cerner at 02/01/2023 6:55 PM CDT documented in this encounter Plan of Treatment Not on file documented as of this encounter Visit Diagnoses Not on filedocumented in this encounter Care Teams Insole Rounder Relationship Specialty Start Date End Date Mumtaz Larson MD [address] [facility] [address] [place] [phone] PCP - General Family Medicine 08/26/22 documented as of this encounter
--- OUTSIDE RECORDS SUMMARY | 2025-06-16 09:42 | XMS_ITS | Encounter Summary ---
Author Organization [employer] ([place], [place], [place], [place]) Address [address] [place] [address] Care Team Providers Care Treasury Agent Name Role Phone Mumtaz Larson MD Primary Care Provider + [phone] Encounter Details Date Type Department Care Team (Late st Contact Info) Description 06/02/2022 Transcribed Document [facility] [place] Family Medicine [address] [place] [address] ProviderGabriel MD [address] [place] [address] Social History Tobacco Use Types Packs/Day Years [...] Date Macario rded Speak language other than Taiwanese at home Not on file 10/29/2023 Want [...] Cerner Conversion Note - Historical Provider, - 06/02/2022 8:29 AM CDT UM Authorization Entered On: 06/02/2022 8:31 EDT Performed On: 06/02/2022 8:29 EDT by Kristen Rea, Wardrobe Mistress Primary Insurance Authorization Authorization and Policy Numbers : Insurance 1 Health Plan: [facility] MEDIC[facility] ADVANT[facility] Policy Number: [id number] Authorization Number: Insurance Primary Name : [employer] MEDICARE ADVANTAGE - [id number] Reference Number-Primary : [id number] Authorized Service Begin Date-Primary : 06/01/2022 EDT Authorization Comments-Primary : Reference number obtained from fax 06/01/22 @ 1552 - Request for clinical. -Amanda Chapman RN. Historical Authorization Comments-Primary : No Authorization Comments Found Kristen Rea, Wardrobe Mistress - 06/02/2022 8:29 EDT Electronically signed by Lizabeth Polanco Conversion Vocational Auto Body Instructor Cerner at 02/01/2023 6:46 PM CDT documented in this encounter Plan of Treatment Not on file documented as of this encounter Visit Diagnoses Not on filedocumented in this encounter Care Teams Treasury Agent Relationship Specialty Start Date End Date Mumtaz Larson MD [address] [place] [facility] [address] [place] [phone] PCP - General Family Medicine 08/26/22 documented as of this encounter
--- OUTSIDE RECORDS SUMMARY | 2025-06-16 09:42 | XMS_ITS | Encounter Summary ---
Author Organization [employer] ([place], [place], [place], [place]) Address [address] [place] [address] Care Team Providers Care Journeyman Meat Cutter Name Role Phone Mumtaz Larson MD Primary Care Provider + [phone] Encounter Details Date Type Department Care Team (Late st Contact Info) Description 06/02/2022 Transcribed Document [facility] [place] Family Medicine [address] [place] [address] ProviderGabriel MD [address] [place] [address] Social History Tobacco Use Types Packs/Day Years [...] Date Macario rded Speak language other than Albanian at home Not on file 10/29/2023 Want [...] Conversion Note - Historical Provider, - 06/02/2022 1:30 PM CDT [facility] Endo PreOp Summary Primary Physician: ROCAEL FINLEY MD Finalized Date/Time: 06/02/22 13:15:04 Pt. Name: TIEN GARCIA Wilmer /Sex: 1955 Male Med Rec #: [id number] Physician: RAFA ALEXANDER DO-INT Financial #: [id number] Pt. Type: Room/Bed: [facility] [place] Admit/Disch: 06/01/22 13:28:00 - Institution: [facility] PreOp Case Times Entry 1 In Preop 06/02/22 13:00:00 Ready for Holding 06/02/22 13:20:00 Room Patient Ready for n/a Surgery Patient Out of Preop 06/02/22 13:20:00 Patient Out of n/a Holding Room Last Modified By: Terrance Short Non Emp RN 06/02/22 13:15:02 Finalized By: Terrance Short Non Emp RN Document Signatures Signed By: Terrance Short Non Emp RN 06/02/22 13:15 Electronically signed by Sherri [facility] Conversion Drilling Supervisor Cerner at 02/01/2023 6:48 PM CDT documented in this encounter Plan of Treatment Not on file documented as of this encounter Visit Diagnoses Not on filedocumented in this encounter Care Teams Journeyman Meat Cutter Relationship Specialty Start Date End Date Mumtaz Larson MD [address] [place] [facility] [address] [place] [phone] PCP - General Family Medicine 08/26/22 documented as of this encounter
--- OUTSIDE RECORDS SUMMARY | 2025-06-16 09:42 | XMS_ITS | Encounter Summary ---
Author Organization [employer] ([place], [place], [place], [place]) Address [address] [place] [address] Care Team Providers Care Cell Stripper Final Name Role Phone Mumtaz Larson MD Primary Care Provider + [phone] Encounter Details Date Type Department Care Team (Late st Contact Info) Description 06/02/2022 Transcribed Document [facility] [place] Family Medicine [address] [place] [address] ProviderGabriel MD [address] [place] [address] Social History Tobacco Use Types Packs/Day Years [...] Date Macario rded Speak language other than Japanese at home Not on file 10/29/2023 Want [...] Cerner Conversion Note - Historical ProviderMD - 06/02/2022 3:33 PM CDT Patient: TIEN GARCIA Age: 66 Years Sex: Male : 1955 *Operation EGD w Peg Tube Placement, Gastric [...] and medication now *Specimen(s) gastric Complications none Date of Service Date/Time of Service SN - Proc - Start Time: 06/02/22 14:42:00 (06/02/22 14:44:31) documented in this encounter Plan of Treatment Not on file documented as of this encounter Visit Diagnoses Not on filedocumented in this encounter Care Teams Cell Stripper Final Relationship Specialty Start Date End Date Mumtaz Larson MD [address] [facility] [address] [place] [phone] PCP - General Family Medicine 08/26/22 documented as of this encounter
--- OUTSIDE RECORDS SUMMARY | 2025-06-16 09:42 | XMS_ITS | Encounter Summary ---
Author Organization [employer] ([place], [place], [place], [place]) Address [address] [place] [address] Care Team Providers Care Oil Lease Broker Name Role Phone Mumtaz Larson MD Primary Care Provider + [phone] Encounter Details Date Type Department Care Team (Late st Contact Info) Description 04/07/2022 Transcribed Document [facility] [place] [address] [place] [address] ProviderGabriel MD [address] [place] [address] Social History Tobacco Use Types Packs/Day Years [...] Date Macario rded Speak language other than Anguillan at home Not on file 10/29/2023 Want [...] Conversion Note - Historical Provider, - 04/07/2022 9:00 PM CDT NIH Stroke Scale *Q Entered On: 04/08/2022 2:17 EDT Performed On: 04/07/2022 21:00 EDT by Kerry Singer Non Emp RN NIH Stroke Scale *Q Time of Assessment : 04/07/2022 21:30 EDT NIH Clinician Administering Scale : Kerry Singer Non Emp RN NIH Level of Consciousness (1A) : Alert NIH LOC Questions (1B) : Answers both questions correctly NIH LOC Commands (1C) : Performs both tasks correctly NIH Best Gaze (2) : Normal NIH Visual (3) : No visual loss NIH Facial Palsy (4) : Partial paralysis NIH Motor Arm, Left (5A) : [...] : No abnormality NIH Scale Score : 2 Kerry Singer Non Emp RN - 04/08/2022 2:15 EDT Electronically signed by Sherri [facility] Conversion Road Test Examiner Cerner at 02/01/2023 7:06 PM CDT documented in this encounter Plan of Treatment Not on file documented as of this encounter Visit Diagnoses Not on filedocumented in this encounter Care Teams Oil Lease Broker Relationship Specialty Start Date End Date Mumtaz Larson MD [address] [facility] [address] [place] [phone] PCP - General Family Medicine 08/26/22 documented as of this encounter
--- OUTSIDE RECORDS SUMMARY | 2025-06-16 09:42 | XMS_ITS | Encounter Summary ---
Author Organization [employer] ([place], [place], [place], [place]) Address [address] [place] [address] Care Team Providers Care Hearing Care Practitioner Name Role Phone Mumtaz Larson MD Primary Care Provider + [phone] Encounter Details Date Type Department Care Team (Late st Contact Info) Description 04/08/2022 Transcribed Document [facility] [place] [address] [place] [address] ProviderGabriel MD [address] [place] [address] Social History Tobacco Use Types Packs/Day Years [...] Date Macario rded Speak language other than Icelandic at home Not on file 10/29/2023 Want [...] Conversion Note - Historical Provider, - 04/08/2022 11:12 AM CDT Patient: TIEN GARCIA Age: 66 years Sex: Male : 1955 Associated Diagnoses: None Author: SRAVAN HIDALGO MD-TEETEE Subjective Pt reports that symptoms improve after Mestinon doses, but return fairly quickly; this AM he feels his breathing is worse. He did not get his IV Ig yesterday for unclear reasons Objective VS/Measurements Vital Signs/Vital Measures 04/08/2022 10:24 EDT Heart Rate, Apical 88 bpm 04/08/2022 9:18 EDT Systolic Blood Pressure 165 mmHg HI Diastolic Blood Pressure 89 mmHg Temperature, Fahrenheit 98.0 Deg F General: Pt is awake and alert, with moderate respiratory distress; speech is dysarthric but comprehensible. Eye: Pupils are equal, round and reactive to light, Extraocular movements are intact, Complete R ptosis noted. Respiratory: moderate resp distress noted. Cardiovascular: Normal rate, Regular rhythm. Neurologic: R ptosis with bilateral facial weakness noted, CN otherwise intact; motor strength is 5/5 throughout, sensation intact, no ataxia. Psychiatric: Cooperative. Results Review Labs reviewed; AchR antibodies pending CT chest pending (pt unable to lay flat) Impression and Plan 66yo M with h/o DM, HTN, recent viral meningitis admitted with one week history of dysphagia, slurred speech and inability to eat; he also developed respiratory difficulty here, has ptosis and facial weakness. Constellation of symptoms is most consistent with myasthenia gravis; receptor antibodies are pending and he is now on high dose IV steroids, mestinon and IV Ig- there has been some difficulty getting oral medications due to difficulties with Corpak placement. He is getting first dose of IV Ig today; will continue IV steroids and Mestinon. I will plan for MRI brain when he can tolerate laying flat to evaluate for stroke or structural lesion that may be causing symptoms, though most likely this is myasthenia gravis; other possibilities would include paraneoplastic disorder, encephalitis, inflammatory disorder such as sarcoid, botulism. I will continue current treatment; await antibody results, will also send out blood tests for Lyme/WNV/HIV/RPR and will consider lumbar puncture if he is not improving. Plan discussed at length with patient and ; neurology will follow closely. documented in this encounter Plan of Treatment Not on file documented as of this encounter Visit Diagnoses Not on filedocumented in this encounter Care Teams Hearing Care Practitioner Relationship Specialty Start Date End Date Mumtaz Larson MD [address] [place] [facility] [address] [place] [phone] PCP - General Family Medicine 08/26/22 documented as of this encounter
--- OUTSIDE RECORDS SUMMARY | 2025-06-16 09:42 | XMS_ITS | Encounter Summary ---
Author Organization [employer] ([place], [place], [place], [place]) Address [address] [place] [address] Care Team Providers Care Project Consultant Name Role Phone Mumtaz Larson MD Primary Care Provider [phone] Encounter Details Date Type Department Care Team (Late st Contact Info) Description 08/11/2022 Outside Orders [facility] Central Scheduling [address] [place] [address] Arthur Bull MD [address] [facility] [address] [place], [place] [id number] Social History Tobacco Use Types Packs/Day Years Used Date Smoking Tobacco: Never Smokeless Tobacco: Never Alcohol Use Standard Drinks/Week Comments Never 0 (1 standard drink = 0.6 oz pur e alcohol) Sex and Gender Information Value Date Recorded Sex Assigned at Male 05/13/2022 12:59 PM CDT Legal Sex Male 1:44 PM CDT Gender Identity Male 05/13/2022 12:59 PM CDT Sexual Orientation Not on file documented as of this encounter Plan of Treatment Not on file documented as of this encounter Visit Diagnoses Not on filedocumented in this encounter Care Teams Project Consultant Relationship Specialty Start Date End Date Mumtaz Larson MD [address] [facility] [address] [place] [id number] PCP - General Family Medicine 08/26/22 documented as of this encounter
--- OUTSIDE RECORDS SUMMARY | 2025-06-16 09:42 | XMS_ITS | Encounter Summary ---
Author Organization [employer] ([place], [place], [place], [place]) Address [address] [place] [address] Care Team Providers Care Service Control Operator Name Role Phone Mary Larson MD Primary Care Provider + [phone] Encounter Details Date Type Department Care Team (Late st Contact Info) Description 06/04/2022 Transcribed Document [facility] [place] [address] [place] [address] ProviderGabriel MD [address] [place] [address] Social History Tobacco Use Types Packs/Day Years [...] Date Macario rded Speak language other than [place] at home Not on file 10/29/2023 Want [...] Conversion Note - Historical Provider, - 06/04/2022 1:44 PM CDT [facility] [place] [address] TIEN GARCIA :1955 Visit Time:06/01/2022 Your Visit Summary Your Care Team Admitting Physician - RAFA ALEXANDER DO-INT Attending Physician - JAMIR MURRAY MD Primary Care Physician - MARY LARSON (REF), -[facility] Referring Physician - RACHAEL, SELF REFERRED Your Diagnosis Cellulitis Difficulty swallowing, Difficulty swallowing Myasthenia gravis with exacerbation These Are Your Goals Patient Discharge Goal Patient Discharge Goal: Home health care Discharge Vitals Temperature 36.4 ??C Heart Rate (Monitored) 67 Blood Pressure 125/88 What to do next Follow-Up Appointments Follow Up with JOYCE CHESTER When In 11 days 06/15/2022 EDT Comments Follow up appointment scheduled for 06/15 Where: [address] [place] [address]- Business (1) Follow Up with MARY LARSON When Within 5 to 7 days Where: [facility] [address] [place] [address] [place] [address]- Business (1) Follow Up with PILLO GAINES When Within 2 weeks Where: [address] [place] [address]- Business (1) Medications What How Much When Instructions Next Dose calcium carbonate (calcium (as carbonate) 600 mg oral tablet) 1 Tablet(s) PEG Tube Two Times A Day *capsules may be opened and the contents mixed with liquid - or liquid formulation may be used - available OTC* cefUROXIME (Ceftin 500 mg oral tablet) 1 Tablet(s) Oral Two Times A Day Duration: 10 Day(s) via PEG NEW - antibiotic Pickup at [facility] QUEtiapine (QUEtiapine 50 mg oral tablet) 1 Tablet(s) PEG Tube Two Times A Day allopurinol (allopurinol 300 mg oral tablet) 1 Tablet(s) PEG Tube Every Day atenolol-chlorthalidone (atenolol-chlorthalidone 100 mg-25 mg oral tablet) 1 Tablet(s) PEG Tube Every Day cholecalciferol (Vitamin D3 400 units oral tablet) 1 Tablet(s) PEG Tube Every Day fenofibrate (TriCor 145 mg oral tablet) 1 Tablet(s) PEG Tube Every Day levothyroxine (levothyroxine 50 mcg (0.05 mg) oral tablet) 1 Tablet(s) PEG Tube Every Day metFORMIN (metFORMIN 500 mg oral tablet) 1 Tablet(s) PEG Tube Two Times A Day NOTE - this is a formulation change. The ER tablets that you have at home may not be used in the PEG tube Pickup at [facility] mycophenolate mofetil (mycophenolate mofetil 500 mg oral tablet) 1 Tablet(s) PEG Tube Two Times A Day 1 hour before or 2 hours after meals *teratogenic when crushed(skin contact may enhance tumor production; avoid direct contact if or may become )* omeprazole (omeprazole 20 mg oral delayed release capsule) 1 Capsule(s) PEG Tube Every Day *open capsule and gently mix granules in acidic fruit juice - pour mixture down the tube and flush with additional fruit juice - clamp tube for at least an hour* NOTE - this is a change in administration Pickup at [facility] potassium chloride (Potassium Chloride (Cuo-Siuc-Laj M20) 20 mEq oral tablet, extended release) 1 Tablet(s) PEG Tube Two Times A Day the whole tablet may be dissolved in ~4 ounces of water (allow ~2 minutes to dissolve, stir well and use immediately NOTE - this is a change in formulation pramipexole (pramipexole 0.25 mg oral tablet) 1 Tablet(s) PEG Tube At Bedtime predniSONE (predniSONE 50 mg oral tablet) 1 Tablet(s) PEG Tube Every Day pyridostigmine (pyridostigmine 60 mg oral tablet) 1 Tablet(s) PEG Tube Four Times A Day Pharmacy Information [facility]: [address] [place], [place] [id number] [phone] Take your medications faithfully. Do NOT skip [...] This Visit No Immunizations Found Education Materials Dysphagia Dysphagia is trouble swallowing. This condition [...] these instructions at home: Medicines ??? Take jwhv-gxg-fqwppxi and prescription medicines only as told by your health care provider. ??? If you were prescribed an antibiotic medicine, take it as told by your health care provider. Do not stop taking the antibiotic even if you start to feel better. Eating and drinking ??? Make any diet changes as told by your health care provider. ??? Work with a diet and packaging specialist (dietitian) to create an eating plan [...] provider. Document Revised: 05/24/2021 Document Reviewed: 05/24/2021 [employer] Patient Education ?? 2021 [employer] PEG Tube Home Guide A percutaneous [...] and water are not available, use hand cadastral surveyor. 2. Check the skin around the stoma [...] and water are not available, use hand cadastral surveyor. 4. Position yourself so that you are [...] and water are not available, use hand cadastral surveyor. 4. Position yourself so that you are [...] provider. Document Revised: 09/24/2021 Document Reviewed: 02/14/2021 [employer] Patient Education ?? 2021 [employer] Elbow Bursitis Bursitis is swelling and [...] include: ??? Medicines. These may include: ? Dvjc-fjd-sboiwcd medicines to relieve pain and inflammation. ? Antibiotic medicines. ? Injections of anti-inflammatory medicines (steroids). ??? Draining fluid from the bursa. ??? Wrapping your elbow with a bandage. ??? Wearing elbow pads. If these treatments do not help, you may need surgery to remove the bursa. Follow these instructions at home: Medicines ??? Take hvpy-vss-uasqxun and prescription medicines only as told by [...] Leave the ice on for 20 minutes, 2???3 times a day. ??? If your bursitis [...] provider. Document Revised: 04/09/2021 Document Reviewed: 04/09/2021 Elsevier Patient Education ?? 2021 [employer] Emergency Awareness and Preventative Care STROKE [...] Assistance with quitting is available by contacting 7-770-OIIANOW. This is a free resource providing counseling, [...] CPR? There are two easy steps: Call 9-1-1 if you see a teen or adult [...] This Visit (last charted value for your 06/01/2022 visit) Hematology 06/02/2022 10:35 AM WBC: 10.3 K/uL -- Normal range between ( 3.6 and 9.5 ) RBC: 5.34 Million/uL -- Normal range between ( 4.20 and 5.70 ) Hct: 46.3 % -- Normal range between ( 40.1 and 51.0 ) Hgb: 15.7 g/dL -- Normal range between ( 13.5 and 17.3 ) Platelet Count: 390 K/uL -- Normal range between ( 163 and 369 ) MCH: 29.4 pg -- Normal range between ( 25.6 and 32.2 ) MCHC: 33.9 Gram/dL -- Normal range between ( 32.2 and 36.5 ) MCV: 86.7 fL -- Normal range between ( 79.0 and 94.8 ) Slide Review: No RDW: 13.5 % -- Normal range between ( 11.7 and 14.9 ) MPV: 9.3 fL -- Normal range between ( 9.4 and 12.4 ) 06/01/2022 11:48 AM Eos %: 0.6 % -- Normal range between ( 0.0 and 7.0 ) Graves #: 0.78 K/uL -- Normal range between ( 0.16 and 1.00 ) Eos #: 0.08 x10(3)/uL -- Normal range between ( 0.00 and 0.80 ) Graves %: 6.2 % -- Normal range between ( 3.0 and 9.0 ) Baso %: 0.2 % -- Normal range between ( 0.0 and 1.5 ) Baso #: 0.03 x10(3)/uL -- Normal range between ( 0.00 and 0.20 ) Neut %: 81.9 % -- Normal range between ( 34.0 and 71.0 ) Neut #: 10.26 K/uL -- Normal range between ( 1.56 and 6.13 ) Lymph %: 10.7 % -- Normal range between ( 19.3 and 53.1 ) Lymph #: 1.34 x10(3)/uL -- Normal range between ( 1.00 and 3.90 ) IG#: 0.05 x10(3)/uL -- Normal range between ( 0.00 and 0.05 ) IG%: 0.40 % -- Normal range between ( 0.00 and 0.60 ) General Chemistry 06/04/2022 12:06 PM Glucose POC2: 144 mg/dL -- Normal range between ( 70 and 110 ) Device Comment 1: Device Comment 1 06/02/2022 10:35 AM Creatinine Level: 0.80 mg/dL -- Normal range between ( 0.70 and 1.30 ) Sodium Level: 134 mmol/L -- Normal range between ( 136 and 146 ) Potassium Level: 3.9 mmol/L -- Normal range between ( 3.5 and 5.1 ) Chloride Level: 101 mmol/L -- Normal range between ( 102 and 112 ) Carbon Dioxide Level: 27 mmol/L -- Normal range between ( 21 and 32 ) Anion Gap: 10 -- Normal range between ( 9 and 20 ) Bun/Creatinine: 16.2 -- Normal range between ( 8.0 and 20.0 ) Calcium Level: 9.0 mg/dL -- Normal range between ( 8.4 and 10.1 ) eGFR : >60 mL/min/1.73m2 eGFR NonAfrican: >60 mL/min/1.73m2 Glucose Level: 111 mg/dL -- Normal range between ( 74 and 106 ) Blood Urea Nitrogen: 13 mg/dL -- Normal range between ( 7 and 22 ) 06/01/2022 6:11 PM Device Comment 2: Notified MD RBV 06/01/2022 11:48 AM Bilirubin Total: 0.8 mg/dL -- Normal range between ( 0.2 and 1.2 ) A/G Ratio: 0.9 -- Normal range between ( 1.1 and 2.5 ) ALT: 25 Units/Liter -- Normal range between ( 16 and 61 ) AST: 18 Units/Liter -- Normal range between ( 5 and 37 ) Globulin: 3.8 Gram/dL -- Normal range between ( 1.5 and 4.5 ) Alk Phos: 58 Units/Liter -- Normal range between ( 27 and 136 ) Lactic Acid Level: 1.4 mmol/L -- Normal range between ( 0.4 and 2.0 ) Protein Total: 7.1 Gram/dL -- Normal range between ( 6.4 and 8.2 ) Albumin Level: 3.3 Gram/dL -- Normal range between ( 3.4 and 5.0 ) Endocrinology 06/01/2022 4:37 PM Procalcitonin: <0.25 ng/mL -- Normal range between ( 0.00 and 2.00 ) Therapeutic Drugs 06/03/2022 3:01 PM Vancomycin Trough: 15.5 mcg/mL -- Normal range between ( 5.0 and 15.0 ) Diagnostic Radiology 06/01/2022 7:45 PM CR Elbow 2 Vws RT: CR Elbow 2 Vws RT Ultrasound 06/02/2022 10:05 AM US Up Ext Nonvas Comp: US Up Ext Nonvas Comp Patient Name:TIEN GARCIA I have received and understand this information and was given the opportunity to ask questions. Patient/Talent Acquisition Consultant Name: Patient/Talent Acquisition Consultant Signature: Relationship to Patient: Clinician/Hospital Talent Acquisition Consultant Signature: Date: Electronically signed by Sherri [facility] Conversion Dispute Resolution Specialist Cerner at 02/01/2023 6:45 PM CDT documented in this encounter Plan of Treatment Not on file documented as of this encounter Visit Diagnoses Not on filedocumented in this encounter Care Teams Service Control Operator Relationship Specialty Start Date End Date Mary Larson MD [address] [facility] [address] [place] [phone] PCP - General Family Medicine 08/26/22 documented as of this encounter
--- OUTSIDE RECORDS SUMMARY | 2025-06-16 09:42 | XMS_ITS | Encounter Summary ---
Author Organization [employer] ([place], [place], [place], [place]) Address [address] [place] [address] Care Team Providers Care Air Crew Supervisor Name Role Phone Mumtaz Larson MD Primary Care Provider + [phone] Encounter Details Date Type Department Care Team (Late st Contact Info) Description 06/05/2022 Transcribed Document [facility] [place] [address] [place] [address] ProviderGabriel MD [address] [place] [address] Social History Tobacco Use Types Packs/Day Years [...] Date Macario rded Speak language other than [place] Citizen at home Not on file 10/29/2023 Want [...] Cerner Conversion Note - Historical Provider, - 06/05/2022 1:02 PM CDT UM Authorization Entered On: 06/05/2022 13:04 EDT Performed On: 06/05/2022 13:02 EDT by Kristen Rea, Front Desk Monitor Primary Insurance Authorization Authorization and Policy Numbers : Insurance 1 Health Plan: [facility] MEDICARE ADVANTAGE Policy Number: [id number] Authorization Number: [id number] Insurance Primary Name : [employer] MEDICARE ADVANTAGE - [id number] Authorization Status-Primary : Approved Auth/Referral Contact Name-Primary : DC Reference Number-Primary : [id number] Authorization Number-Primary : [id number] Number of Days Authorized-Primary : 5 Day(s) Authorized Service Begin Date-Primary : 06/01/2022 EDT Authorized Service End Date-Primary : 06/06/2022 EDT Authorization Comments-Primary : Discharge summary faxed. Historical Authorization Comments-Primary : Comment 1: Rec fax from [facility] 06/03/22 approved auth# [id number] NRD 06/07/22 (CLAYTON NEWMAN, Electro Winning Operator 06/03/2022 12:26) Comment 2: ADMISSION CLINICALS FAXED VIA [facility]. (Temitope Laurent RN 06/02/2022 13:30) Comment 3: Reference number obtained from fax 06/01/22 @ 1554 - Request for clinical. -Amanda Chapman RN. (Kristen Rea, Front Desk Monitor 06/02/2022 08:29) Kristen Rea, Front Desk Monitor - 06/05/2022 13:02 EDT Electronically signed by Sherri [facility] Conversion Ruby Engineer Cerner at 02/01/2023 6:47 PM CDT documented in this encounter Plan of Treatment Not on file documented as of this encounter Visit Diagnoses Not on filedocumented in this encounter Care Teams Air Crew Supervisor Relationship Specialty Start Date End Date Mumtaz Larson MD [address] [place] [facility] [address] [place] [phone] PCP - General Family Medicine 08/26/22 documented as of this encounter
--- OUTSIDE RECORDS SUMMARY | 2025-06-16 09:42 | XMS_ITS | Encounter Summary ---
Author Organization [employer] ([place], [place], [place], [place]) Address [address] [address] Care Team Providers Care Pantograph Machine Set Up Operator Name Role Phone Mumtaz Larson MD Primary Care Provider + [phone] Encounter Details Date Type Department Care Team (Late st Contact Info) Description 06/02/2022 Transcribed Document [facility] [place] [address] [place] [address] ProviderGabriel MD [address] [place] [address] Social History Tobacco Use Types Packs/Day Years [...] as of this encounter Miscellaneous Notes * Cermaida Conversion Note - Historical Provider, - 06/02/2022 8:51 AM CDT MACHINE TOOL TECHNOLOGY INSTRUCTOR Note Entered On: 06/04/2022 13:58 EDT Performed On: 06/04/2022 13:20 EDT by ROMANA OSULLIVAN, MACHINE TOOL TECHNOLOGY INSTRUCTOR Pain Assessment Pain Scaled Used : FACES Pain Score Pre-Intervention : 2 ROMANA OSULLIVAN SLP - 06/04/2022 15:43 EDT Image 1 - Images currently included in the form version of this document have not been included in the text rendition version of the form. Swallow Plan/Goals Swallow LTG Grid MACHINE TOOL TECHNOLOGY INSTRUCTOR Underwriting Analyst Goal #1 MACHINE TOOL TECHNOLOGY INSTRUCTOR Underwriting Analyst Goal #2 Swallow LTG : Improve swallowing function for oral intake Other: Pt goal: I want to get better Status : Discontinue ROMANA OSULLIVAN SLP - 06/04/2022 15:43 EDT ROMANA OSULLIVAN SLP - 06/04/2022 15:43 EDT Swallow Goals Grid Goal #1 Swallow STG : Other: Re-assess for PO diet v. need for instrumental pending timing of IVIG Related To : Return to oral intake Date to Meet : 06/05/2022 EDT Status : Discontinue ROMANA OSULLIVAN SLP - 06/04/2022 15:43 EDT Subjective/Assessment/Plan MACHINE TOOL TECHNOLOGY INSTRUCTOR Patient Concern : Pt seen at bedside, present Additional Objective Information : 1305 - 1320 ROMANA OSULLIVAN SLP - 06/04/2022 13:58 EDT MACHINE TOOL TECHNOLOGY INSTRUCTOR Therapy/Treatment Asmt Cmnt : Pt seen for dysphagia tx. Spoke with neurologist and hospitalist ARNOLDO, pt being d/c home today. At bedside, pt is resistant to attempting PO and shakes his head no and states it won't go down. He is anxious to be d/c and does not wish to attempt PO trials. Would hope for fairly quick pharyngeal recovery after IVIG. May want to consider an OP MACHINE TOOL TECHNOLOGY INSTRUCTOR exam and/or OP MBS prior to initiating PO. MACHINE TOOL TECHNOLOGY INSTRUCTOR Plan : Pt is being d/c home today, NPO with TF via PEG. Would be cautiously optimistic for quick pharyngeal recovery after IVIG. Discussed signs of distress with oral intake and TF via PEG. Pt and spouse verbalized understanding and appreciation. Nothing further (Comment: for to offer and will sign off. [ROMANA OSULLIVAN SLP - 06/04/2022 15:43 EDT] ) Treatment Plan Recommend Cmnt, MACHINE TOOL TECHNOLOGY INSTRUCTOR : - NPO with TF via PEG - may need continued dysphagia tx and/or OP MBS prior to initiating PO diet. ROMANA OSULLIVAN SLP - 06/04/2022 15:43 EDT Education Barriers To Learning : None evident Individuals Taught : Patient, Spouse ROMNAA OSULLIVAN SLP - 06/04/2022 15:43 EDT MACHINE TOOL TECHNOLOGY INSTRUCTOR Education Assessment Grid 1 Aspiration : Verbalizes understanding, Needs further teaching Diet Recommendation : Verbalizes understanding, Needs further teaching Dysphagia : Verbalizes understanding, Needs further teaching Dysphagia, Effects of Impairment : Verbalizes understanding, Needs further teaching Free Water Protocol : Verbalizes understanding, Needs further teaching Ice Chips : Verbalizes understanding, Needs further teaching Non-Oral Nutrition : Verbalizes understanding, Needs further teaching NPO : Verbalizes understanding, Needs further teaching Oral Care : Verbalizes understanding, Needs further teaching ROMANA OSULLIVAN SLP - 06/04/2022 15:43 EDT MACHINE TOOL TECHNOLOGY INSTRUCTOR Education Assessment Grid 2 Physiology of Normal Swallowing : Verbalizes understanding, Needs further teaching Signs of Distress with Oral Intake : Verbalizes understanding, Needs further teaching Swallowing, Anatomy/Physiology Review : Verbalizes understanding, Needs further teaching Swallowing, Effects of Impairment : Verbalizes understanding, Needs further teaching Voice, Effects of Impairment : Verbalizes understanding, Needs further teaching, and resonance impairment with MG ROMANA OSULLIVAN SLP - 06/04/2022 15:[address] [facility] MACHINE TOOL TECHNOLOGY INSTRUCTOR [facility] 15 Min : 1 ROMANA OSULLIVAN SLP - 06/04/2022 13:58 EDT documented in this encounter Plan of Treatment Not on file documented as of this encounter Visit Diagnoses Not on filedocumented in this encounter Care Teams Pantograph Machine Set Up Operator Relationship Specialty Start Date End Date Mumtaz Larson MD [address] [place] [facility] [address] [place] [phone] PCP - General Family Medicine 08/26/22 documented as of this encounter
--- OUTSIDE RECORDS SUMMARY | 2025-06-16 09:42 | XMS_ITS | Encounter Summary ---
Author Organization [employer] ([place], [place], [place], [place]) Address [address] [place] [address] Care Team Providers Care Oim Consultant Name Role Phone Mumtaz Larson MD Primary Care Provider + [phone] Encounter Details Date Type Department Care Team (Late st Contact Info) Description 04/12/2022 Transcribed Document [facility] [place] Family Medicine [address] [place] [address] ProviderGabriel MD [address] [place] [address] Social History Tobacco Use Types Packs/Day Years [...] Date Macario rded Speak language other than Vincentian at home Not on file 10/29/2023 Want [...] Conversion Note - Historical Provider, - 04/12/2022 8:55 AM CDT Patient: TIEN GARCIA Age: 66 years Sex: Male : 1955 Associated Diagnoses: None Author: BLAINE DRAPER MD Subjective Seen and examined this morning no Family at bedside labs noted AchR antibodies 7.3, blocking 53, Review of Systems Blurry vision Difficulty swallowing some Shortness of breath No fever no chills [...] (Moderate 4-6) SEROquel: 400 mg, Oral, BID Serax: 10 mg, Oral, BID Sodium Chloride 0.9% intravenous solution 1,000 mL: 50 mL/Hr, IntraVENous TriCor 145 mg oral tablet: 145 mg, 1 Tab, Oral, Daily Tylenol: 650 mg, Oral, Q4H, PRN: Pain (Mild 1-3) Zofran: 4 mg, IV Push, Q4H, PRN: Nausea Zosyn + Sodium Chloride 0.9% intravenous solution 100 mL: 3.375 Gram, 33.33 mL/Hr, IV Piggyback, Q6HInt alteplase + sterile water 1 mL: 1 mg, 60 mL/Hr, IntraCATHeter, 1-Time, PRN: Other (See Comment) amLODIPine: 5 mg, Oral, Daily calcium gluconate: 1 Gram, 100 mL, 150 [...] mg, IV Push, Q6H, PRN: Hypertension insulin regular sliding scale: Scale C, SubCutaneous, [...] Cap, Oral, Daily, 0 Refill(s) Flonase: 1 Eden, Nostrils Both, Daily, 0 Refill(s) MetFORMIN (Eqv-Glucophage [...] Tab, Oral, At Bedtime, 0 Refill(s), Medications (48) Active Scheduled: (19) #NaCl 0.9% *FLUSH* inj 10 mL 10 mL, IV Push, Q12H #NaCl 0.9% *FLUSH* inj 10 mL 10 mL, IntraCATHeter, Q12H amLODIPine 5 mg tab 5 mg 1 [...] list: Medical Allergic rhinitis / SNOMED CT 566868365 / Confirmed Hard of hearing / SNOMED CT 080389265 / Confirmed High blood pressure / SNOMED CT 45389948 / Confirmed Bronchitis / SNOMED CT 14621475 / Confirmed GERD - Gastro-esophageal reflux disease / SNOMED CT 5700717946 / Confirmed Microscopic colitis / SNOMED CT 363937985 / Confirmed Arthritis / SNOMED CT 4189382 / Confirmed Diabetes mellitus type II / SNOMED CT 99963794 / Confirmed Prostate cancer / SNOMED CT 0051076736 / Confirmed History of obstructive sleep apnea / IMO 22594810 / Confirmed, Active Problems (10) Allergic rhinitis Arthritis Bronchitis Diabetes mellitus type II GERD - Gastro-esophageal reflux disease Hard of hearing High blood pressure History of obstructive sleep apnea Microscopic colitis Prostate cancer Objective VS/Measurements Vitals Signs (last 24 hrs) Last Charted Minimum Maximum Apical HR 65 (APR 12 14:23) L 55 (APR 12 11:06) 65 (APR 12 14:23) Mon HR 63 (APR 12 18:00) 40 (APR 12 00:56) 79 (APR 12 16:00) Resp Rate 18 (APR 12 18:00) L 12 (APR 11 21:00) H 50 (APR 12 11:00) SBP H 151 (APR 12 18:00) 134 (APR 12 01:00) H 195 (APR 12 14:00) DBP 90 (APR 12 18:00) 72 (APR 12 01:00) H 102 (APR 12 16:00) MAP 116 (APR 12 18:00) 98 (APR 12 01:00) 141 (APR 12 14:00) SpO2 95 (APR 12 18:00) 94 (APR 11 19:00) 100 (APR 12 11:00) General: Alert and oriented, No acute distress. [...] mood & affect. Review / Management APR 12 03:41 141 107 H 26 / H 171 3.5 31 0.90 \ APR 12 03:41 \ 13.8 / 5.2 L 137 / 41.3 \ Radiology Results (Last 48 hours) [id number] -- 04/06/2022 15:42 CR Chest 1 Vw Portable (04/11/2022 04:21) [...] transcribed report. CR Chest 1 Vw Portable (04/12/2022 07:15) Result: PORTABLE CHEST 04/12/2022 4:00 AMHISTORY: Shortness of airCOMPARISON: 1 day priorFINDINGS: The cardiac silhouette is mildly enlarged. The aorta isunfolded. A feeding tube is present coursing off the anterior margin ofthe film. The left-sided PICC line tip terminates in the SVC. Themediastinal and hilar structures are unremarkable. There is mcdzln-br-qdppbldt left pleural effusion and left lower lobe atelectasiswhich appears increased. There is no pneumothorax.IMPRESSION: Interval increase in the small moderate left pleuraleffusion and left lower lobe atelectasis.Images reviewed, interpreted, and dictated by Dr. Sherif Chavis.Transcribed by Joni Rea PA-C.I have personally viewed, interpreted and dictated the examination. Ihave read and agree with the above final transcribed report. Results review: Labs (Last four charted values) WBC 5.2 (VERO 26) 5.2 (VERO 25) 7.2 (VERO 24) 8.8 (VERO 23) HB 13.8 (VERO 26) L 12.9 (VERO 25) L 12.6 (VERO 24) 14.8 (VERO 23) HCT 41.3 (VERO 26) L 39.6 (VERO 25) L 38.5 (VERO 24) 43.9 (VERO 23) Plt L 137 (VERO 26) L 161 (VERO 25) 235 (VERO 24) 326 (VERO 23) Na 141 (VERO 26) 144 (VERO 25) H 147 (VERO 24) 144 (VERO 23) K 3.5 (VERO 26) L 3.3 (VERO 25) L 3.0 (VERO 24) 3.6 (VERO 23) Cl 107 (VERO 26) 109 (VERO 25) H 115 (VERO 24) 109 (VERO 23) CO2 31 (VERO 26) 32 (VERO 25) 29 (VERO 24) 31 (VERO 23) BUN H 26 (VERO 26) H 26 (VERO 25) H 25 (VERO 24) 22 (VERO 23) Cr 0.90 (VERO 26) 0.80 (VERO 25) L 0.60 (VERO 24) 0.80 (VERO 23) Glu R H 171 (VERO 26) H 163 (VERO 25) H 152 (VERO 24) H 167 (VERO 23) Ca 8.6 (VERO 26) 8.6 (VERO 25) L 8.2 (VERO 24) 9.0 (VERO 23) PT 11.4 (VERO 26) INR 1.1 (VERO 26) AST H 221 (VERO 26) H 224 (VERO 25) H 129 (VERO 24) H 39 (VERO 22) ALT H 528 (VERO 26) H 367 (VERO 25) H 179 (VERO 24) 49 (VERO 22) ALK P 60 (VERO 26) 55 (VERO 25) 53 (VERO 24) 73 (VERO 22) T Bili 1.2 (VERO 26) H 1.5 (VERO 25) 0.8 (APR 10) 1.1 (APR 08) PTN 7.5 (APR 12) 6.8 (APR 11) 6.4 (APR 10) 7.7 (APR 08) ALB L 2.7 (APR 12) L 2.7 (APR 11) L 2.7 (APR 10) 3.7 (APR 08) . Impression and Plan # Myasthenia Gravis crisis Neuro check Speech evaluation, S/P Corpak labs noted Pyridostigmine IV steroid switch to PO IV IG per neurology monitor symptoms neurology following AchR antibodies 7.3, blocking 53, Bordetella, HIV not reactive Monitor respiratory status CT chest B/L consolidation #Acute hypoxic respiratory failure Aspiration pneumonia likely secondary from neuro musculare involvement from myasthenia Respiratory PCR negative, CXR noted CT chest 04/09 B/L consolidation Breathing treatment PRN BiPAP for increased work of breathing At risk of worsening respiratory status and intubation consulted pulmonary #Elevated LFT Worsening D/C Tylenol hepatitis panel not reactive, Hepatic US noted Moderate enlarged fatty infiltrated liver Monitor #Bradycardia D/C BB order art educator #Dysphagia Secondary to myasthenia gravis versus stroke MRI brain when he can lay flat Keep n.p.o. Speech therapy Corpak placement, started on feeding tube #Hypernatremia, improving Added free water #Aspiration pneumonia Sputum culture IV Zosyn Breathing treatment CT chest noted #Hypokalemia and hypophosphatemia Replace check in am #H/O Prostate cancer Flomax #Hypothyroidism Restart levothyroxine Check TSH WNL #Diabetes mellitus Sliding-scale insulin Monitor blood sugar #HTN Use IV hydralazine PRN #Restless leg syndrome Resume home medications Discussed with patient, Discussed with SUPERINTENDENT MAINTENANCE Labs, imaging chart from outside hospital reviewed [...] on filedocumented in this encounter Care Teams Oim Consultant Relationship Specialty Start Date End Date Mumtaz Larson MD [address] [place] [facility] [address] [place] [phone] PCP - General Family Medicine 08/26/22 documented as of this encounter
--- OUTSIDE RECORDS SUMMARY | 2025-06-16 09:42 | XMS_ITS | Encounter Summary ---
Author Organization [employer] ([place], [place], [place], [place]) Address [address] [place] [address] Care Team Providers Care Commissioning Agent Name Role Phone Mumtaz Larson MD Primary Care Provider + [phone] Encounter Details Date Type Department Care Team (Late st Contact Info) Description 04/08/2022 Transcribed Document [facility] Family Medicine [address] [place] [address] ProviderGabriel MD [address] [place] [address] Social History Tobacco Use Types Packs/Day Years [...] Date Macario rded Speak language other than Samoan at home Not on file 10/29/2023 Want [...] Conversion Note - Historical Provider, - 04/08/2022 12:37 PM CDT UM Authorization Entered On: 04/08/2022 12:39 EDT Performed On: 04/08/2022 12:37 EDT by Kristen Rea, Vice President Of Contracts Primary Insurance Authorization Authorization and Policy Numbers : Insurance 1 Health Plan: [facility] Policy Number: [id number] Authorization Number: Insurance Primary Name : [employer] MED[employer] ADVANTAGE - [id number] Authorization Status-Primary : Admit approved Reference Number-Primary : [id number] Number of Days Authorized-Primary : 5 Day(s) Authorized Service Begin Date-Primary : 04/06/2022 EDT Authorized Service End Date-Primary : 04/11/2022 EDT Authorization Comments-Primary : Authorized per fax 04/08/22 @ 0856. Inpatient admission has been approved for this member. Next review due 04/12. -Amanda Chapman. Historical Authorization Comments-Primary : Comment 1: CLINICALS FAXED VIA [employer] (04/06-04/07) (Temitope Laurent RN 04/07/2022 17:24) Comment 2: Reference number obtained per fax 04/06/22 @ 1645; request for initial clinical. -Amanda Kovacs (Kristen Rea, Vice President Of Contracts 04/07/2022 08:07) Kristen Rea, Vice President Of Contracts - 04/08/2022 12:37 EDT documented in this encounter Plan of Treatment Not on file documented as of this encounter Visit Diagnoses Not on filedocumented in this encounter Care Teams Commissioning Agent Relationship Specialty Start Date End Date Mumtaz Larson MD [address] [facility] [address] [place] [phone] PCP - General Family Medicine 08/26/22 documented as of this encounter
--- OUTSIDE RECORDS SUMMARY | 2025-06-16 09:42 | XMS_ITS | Encounter Summary ---
Author Organization [employer] ([place], [place], [place], [place]) Address [address] [place] [address] Care Team Providers Care Probation Counselor Name Role Phone Mumtaz Larson MD Primary Care Provider + [phone] Encounter Details Date Type Department Care Team (Late st Contact Info) Description 04/08/2022 Transcribed Document [facility] [place] [address] [place] [address] ProviderGabriel MD [address] [place] [address] Social History Tobacco Use Types Packs/Day Years [...] Date Macario rded Speak language other than [place] at home Not on file 10/29/2023 Want [...] Conversion Note - Historical Provider, - 04/08/2022 9:44 AM CDT Attempt to Treat, PT Entered On: 04/08/2022 10:47 EDT Performed On: 04/08/2022 9:44 EDT by TANO COPELAND PT Student Attempt to Treat Unable to Treat Due To : Patient on hold TANO COPELAND, PT Student - 04/08/2022 10:46 EDT Inability to Treat Comment : KARLA De La Rosa notified therapy that patient has had increased respiratory distress this morning, and pt is not appropriate for therapy at this time. Will plan to check back tomorrow. PT has reviewed PT student documentation and is in agreement. MATT THOMPSON, PT - 04/08/2022 13:54 EDT Electronically signed by Sherri [facility] Conversion Automobile Mechanic Cerner at 02/01/2023 7:07 PM CDT documented in this encounter Plan of Treatment Not on file documented as of this encounter Visit Diagnoses Not on filedocumented in this encounter Care Teams Probation Counselor Relationship Specialty Start Date End Date Mumtaz Larson MD [address] [place] [facility] [address] [place] [phone] PCP - General Family Medicine 08/26/22 documented as of this encounter
--- OUTSIDE RECORDS SUMMARY | 2025-06-16 09:42 | XMS_ITS | Encounter Summary ---
Author Organization [employer] ([place], [place], [place], [place]) Address [address] [place] [address] Care Team Providers Care Warp Drawer Name Role Phone Mumtaz Larson MD Primary Care Provider + [phone] Encounter Details Date Type Department Care Team (Late st Contact Info) Description 04/15/2022 Transcribed Document [facility] [place] [address] [place] [address] ProviderGabriel MD [address] [place] [address] Social History Tobacco Use Types Packs/Day Years [...] Date Macario rded Speak language other than Moldovan at home Not on file 10/29/2023 Want [...] Conversion Note - Historical Provider, - 04/15/2022 10:32 AM CDT Evaluation, Occupational Therapy Entered On: 04/16/2022 9:45 EDT Performed On: 04/16/2022 9:02 EDT by IGNACIA GONZALEZ OTR/L General Information, OT Visit Type, OT : Initial evaluation Patient Orders : Order Date Order Ordering 04/06/2022 16:18 OT Evaluation and Treatment Ordered By: BLAINE DRAPER MD 04/15/2022 10:32 Occupational Therapy Evaluation and Treatme Ordered By: YANNI ANGELA MD-INT Active Diagnoses : No Qualifying Diagnoses Admission Date : 04/06/2022 15:42 Co-treated by, OT : Physical Therapist Personal Devices : Personal Devices No Devices Recorded Assistive Devices : Assistive Devices No Devices Recorded General Information Comment, OT : Myastenia Gravis with recent viral menengitis presented with dysphagia, slurred speech, and dyspnea. IGNACIA GONZALEZ OTR/L - 04/16/2022 9:27 EDT General Status Actual Treatment Time : 29 Minute(s) (Comment: Additional time for chart review, collaboration, and clinical [id number] [IGNACIA GONZALEZ OTR/L - 04/16/2022 12:28 EDT] ) IGNACIA GONZALEZ OTR/L - 04/16/2022 12:28 EDT Patient Received Status : Supine in bed Treatment Start Time : 04/16/2022 9:02 EDT Patient Left Status : Long sitting in bed, Family/Visitors at bedside, Communication board completed, All needs met and within reach Treatment End Time : 04/16/2022 9:26 EDT Treatment Time : 24 Minute(s) IGNACIA GONZALEZ OTR/L - 04/16/2022 9:27 EDT History and Environment, OT Living Situation, Therapy : Home Patient Lives With : Spouse Professional Skilled Services : None Persons Providing Information : Patient Home Setup : Multi-level home Bedroom Location : Upstairs Bathroom #1 Location : Upstairs Bathroom #1 Features : Toilet, Tub Bathroom #2 Location : Main level Bathroom #2 Features : Toilet, Walk-In shower Stairs : Yes Stair Location(s) : Inside, Outside Stairs Inside Comment : 2 flights of stairs Bedroom is upstairs Entertainment room in basement Outside Stairs, Number of Steps : 2 Outside Stairs Comment : Pt can enter through back patio with no steps Railing Outside : Yes Outside Railing Position : Bilateral IGNACIA GONZALEZ OTR/Isaiah - 04/16/2022 9:27 EDT Prior LOF Bathing, OT : Independent Prior LOF Bed Mobility : Independent Prior LOF Upper Body Dressing, OT : Independent Prior LOF Lower Body Dressing, OT : Independent Prior LOF Toileting : Independent Prior LOF Transfer : Independent Prior LOF Grooming, OT : Independent Prior LOF for IADLs, OT : Independent IGNACIA GONZALEZ OTR/Isaiah - 04/16/2022 9:27 EDT Prior LOF Assist with ADL Comment : Pt able to stay on main level of home if needed History and Environment Comment, OT : Pt spouse lives and works from home and is caregiver. Pt children lives nearby and daughter is a nurse IGNACIA GONZALEZ OTR/Isaiah - 04/16/2022 9:27 EDT Upper Extremity Right UE Active ROM : WFL Right UE Strength : WFL Left UE Active ROM : WFL Left UE Strength : WFL Right UE Strength : WFL Left UE Strength : WFL IGNACIA GONZALEZ OTR/Isaiah - 04/16/2022 9:27 EDT Self Care/Home Management, OT Self Feeding Assist Level, OT : Independent, complete Grooming Assist Level, OT : Independent, complete Bathing Assist Level, OT : Supervision or set-up Bathing Device, OT : Shower chair with back Upper Body Dressing Assist Level, OT : Independent, modified Lower Body Dressing Assist Level, OT : Supervision or set-up Lower Body Dressing Comment, OT : Pt demo threading pants in sitting and pulling over hips in standing with good dynamic balance. Toileting Assist Level : Independent, complete Toilet Transfer Assist Level : Independent, complete Toilet Transfer Device : Cane, single point Toilet Transfer Comment : Pt demonstrated t/f with no bathroom DME Shower Transfer Assist Level : Supervision or set-up Shower Transfer Device : Cane, single point Tub Transfer Assist Level : Activity does not occur Bed/Chair/WC Transfer Assist Level : Supervision or set-up Bed/Chair/WC Transfer Device : Cane, single point Kitchen Mobility Assist Level : Supervision or set-up Kitchen Mobility Device : Cane, single point Simple Meal Prep Assistance Level, OT : Activity does not occur Med Management Assist Level, OT : Independent, complete Money Management Assist Level, OT : Independent, complete IGNACIA GONZALEZ, OTR/L - 04/16/2022 9:27 EDT Functional Mobility Mobility Grid Bed Scooting : Rehab Complete independence Supine to Sit : Rehab Modified independence (Comment: HOB elevated [IGNACIA GONZALEZ OTR/L - 04/16/2022 9:27 EDT] ) Sit to Stand : Rehab Modified independence (Comment: HOB elevated [IGNACIA GONZALEZ, OTR/L - 04/16/2022 9:27 EDT] ) Bed to Chair : Supervision/set-up (Comment: single point cane [IGNACIA GONZALEZ, OTR/L - 04/16/2022 9:27 EDT] ) Chair to Bed : Supervision/set-up (Comment: single point cane [IGNACIA GONZALEZ, OTR/L - 04/16/2022 9:27 EDT] ) Stand to Sit : Rehab Complete independence Sit to Supine : Rehab Modified independence (Comment: HOB elevated [IGNACIA GONZALEZ OTR/L - 04/16/2022 9:27 EDT] ) IGNACIA GONZALEZ OTR/L - 04/16/2022 9:27 EDT Functional MobilityComment : Pt ambulated 150 feet with RWx modified ind. Pt ambulated 150 feet with single point cane with supervision Pt ambulated with no AE using AUXILIARY POWER EQUIPMENT OPERATOR. IGNACIA GONZALEZ OTR/L - 04/16/2022 9:27 EDT Intervention Summary O2 Pre-Intervention : Room Air SpO2 Pre-Intervention : 96 % O2 Post-Intervention : Room Air SpO2 Post-Intervention : 94 % IGNACIA GONZALEZ OTR/Isaiah - 04/16/2022 9:27 EDT Cognition Assessment, OT Orientation : Oriented x 4 IGNACIA GONZALEZ OTR/L - 04/16/2022 9:27 EDT Education OT Occupational Therapy Education Grid Activity of Daily Living Training : Verbalizes understanding Balance Training : Verbalizes understanding Functional Mobility Training : Verbalizes understanding Home Safety : Verbalizes understanding Role of Occupational Therapy : Verbalizes understanding IGNACIA GONZALEZ OTR/Isaiah - 04/16/2022 9:27 EDT Indication Assessment, OT Occupational Therapy Indicated : No Occupational Therapy Not Indicated : At prior level of function Rehabilitation Potential, OT : Good IGNACIA GONZALEZ OTR/Isaiah - 04/16/2022 9:27 EDT Plan of Care, OT OT Tx Plan/Goals Established w Patient : Yes Plan of Care Comment, OT : No acute level OT needed at this time as pt is near baseline needing supervision only and spouse is at home with pt / IGNACIA GONZALEZ OTR/Isaiah - 04/16/2022 9:27 EDT Treatment Note Subjective Comment : Pt supine in bed, spouse in room, agreeable to OT eval Patient's Response to Treatment : Pt tolerated session well, O2 sats WFL Additional Objective Information : OT evaluation completed. Pt BUE Strength and ROM WFL. Pt reported feeling near baseline at this time. Pt independent at PLOF. Fx mobiltiy completed 150 feet with rwx Tresa, 150 feet with single point cane with supervision, and AUXILIARY POWER EQUIPMENT OPERATOR needed for mobility without AE. Pt demonstrated toilet t/f with supervision and no bathroom DME. He demonstrated LBD task, threading pants in sitting EOB and standing independently to pull pants over hips. Spouse reports pt is able to stay on main level of home with walk in shower and shower bench installed. Pt and spouse report no concerns for d/c home at this time and report they wish to do so. Pt supine in bed with all needs met and call light within reach. Assessment : OT acute level skilled services not needed at this time as pt demonstrates he is near baseline requiring supervision with AE for fx mobility only. Will differ to PT for ambulation training/practice. Anticipated d/c home with HH to assess household safety. OT to sign off at this time. IGNACIA GONZALEZ OTR/L - 04/16/2022 9:27 EDT Pain Assessment Pain Comment : No reports of cyndeehn IGNACIA GONZALEZ OTR/Isaiah - 04/16/2022 9:27 EDT Image 1 - Images currently included in the form version of this document have not been included in the text rendition version of the form. Anticipated Discharge Needs, OT/PT Anticipated Discharge to : Home, with home health IGNACIA GONZALEZ OTR/Isaiah - 04/16/2022 9:[address] [facility] OT Charges OT Selfcare/Hm Mgmt Ea 15 Min : 1 OT Eval Low Complexity : 1 IGNACIA GONZALEZ OTR/L - 04/16/2022 9:27 EDT documented in this encounter Plan of Treatment Not on file documented as of this encounter Visit Diagnoses Not on filedocumented in this encounter Care Teams Warp Drawer Relationship Specialty Start Date End Date Mumtaz Larson MD [address] [facility] [address] [place] [phone] PCP - General Family Medicine 08/26/22 documented as of this encounter
--- OUTSIDE RECORDS SUMMARY | 2025-06-16 09:42 | XMS_ITS | Encounter Summary ---
Author Organization [employer] ([place], [place], [place], [place]) Address [address] [place] [address] Care Team Providers Care Diamond Sorter Name Role Phone Mumtaz Larson MD Primary Care Provider + [phone] Encounter Details Date Type Department Care Team (Late st Contact Info) Description 04/15/2022 Transcribed Document [facility] [place] [address] [place] [address] ProviderGabriel MD [address] [place] [address] Social History Tobacco Use Types Packs/Day Years [...] Conversion Note - Historical Provider, - 04/15/2022 10:57 AM CDT On Going Discharge Planning Entered On: 04/15/2022 10:57 EDT Performed On: 04/15/2022 10:57 EDT by CLAYTON RYAN, RN-Contract Administration CoordinatorSenior Controls Technician Progress Note Discharge Arrangements : Patient Post-Acute Information Patient Name: TIEN GARCIA Gender: Male : [birth year] Age: 66 Years No Post-Acute Placement(s) Listed No Post-Acute Service(s) Listed No [place] Referral(s) Listed Discharge Options Discussed with Patient : Acute rehabilitation, Home Health, skilled nursing Barriers to Discharge Identified : Clinical Condition of Patient Patient Discharge Goal : Inpatient rehabilitation facility CLAYTON RYAN, RN-Contract Administration Coordinator - 04/15/2022 10:57 EDT Narrative Progress Note Narrative Progress Note : HD 9. ELOS 6. RAR: moderate. MG crisis. resp failure. bipap 40%/ [address]: advance to reg diet. PT: steps to chair. added OT. dcp: rehab vs hh. early referral [facility]: confirmed they are following & [facility] skilled. spoke with Mr. Garcia & his son, they agree with plan. if progresses well, home with . Historical Progress Note : HD 8. ELOS 6. [...] Garcia. discussed dc planning options. rehab likely. CLAYTON RYAN, RN-Contract Administration Coordinator - 04/14/22 11:45:19 HD 7. ELOS 6. RAR: moderate. MG crisis. resp failure. continuous bipap 40 to optiflow 50/40. zosyn iv. corpak tube feeds. PT/OT: side step to HOB. dcp: likely rehab vs hh. early referral [facility]. sent [facility]. CLAYTON RYAN, RN-Contract Administration Coordinator - 04/13/22 11:55:38 HD 4/ELOS 6/RRS moderate- on continuous bipap, TF via Corpak, Kw=557, QXJ=474, EDX=718, IVIG, IV Solumedrol BID, IV K+ Phosphate x2 doses, IV Zosyn q6, PT/OT/ST following, DCP: home with possible HH vs rehab pending respiratory requirements/mobility. CHADWICK ALANIZ, Operations [place]man - 04/10/22 17:20:37 CLAYTON RYAN, RN-Contract Administration Coordinator - 04/15/2022 10:57 EDT Electronically signed by Sherri [facility] Conversion Medication Administration Professional Cerner at 02/01/2023 6:57 PM CDT documented in this encounter Plan of Treatment Not on file documented as of this encounter Visit Diagnoses Not on filedocumented in this encounter Care Teams Diamond Sorter Relationship Specialty Start Date End Date Mumtaz Larson MD [address] [facility] [address] [place] [phone] PCP - General Family Medicine 08/26/22 documented as of this encounter
--- OUTSIDE RECORDS SUMMARY | 2025-06-16 09:42 | XMS_ITS | Encounter Summary ---
Author Organization [employer] ([place], [place], [place], [place]) Address [address] [place] [address] Care Team Providers Care Table Worker Name Role Phone Mumtaz Larson MD Primary Care Provider + [phone] Encounter Details Date Type Department Care Team (Late st Contact Info) Description 06/02/2022 Transcribed Document [facility] [place] [address] [place] [address] ProviderGabriel MD [address] [place] [address] Social History Tobacco Use Types Packs/Day Years [...] Date Macario rded Speak language other than Paraguayan at home Not on file 10/29/2023 Want [...] Conversion Note - Historical Provider, - 06/02/2022 2:42 PM CDT [facility] PACU Summary Primary Physician: ROCAEL FINLEY MD Finalized Date/Time: 06/02/22 15:18:13 Pt. Name: TIEN GARCIA Wilmer Guillen/Sex: 1955 Male Med Rec #: [id number] Physician: RAFA ALEXANDER DO-INT Financial #: [id number] Pt. Type: Room/Bed: [facility] Admit/Disch: 06/01/22 13:28:00 - Institution: [facility] PACU Case Times Entry 1 In PACU I 06/02/22 15:00:00 Ready for PACU 06/02/22 15:16:00 Discharge Discharge from PACU 06/02/22 15:20:00 I Last Modified By: Su Loving Non Emp RN 06/02/22 15:18:12 [facility] PACU Case Times Audit 06/02/22 15:18:12 Food Products Tester: [id number] Modifier: [id number] <+> 1 Ready for PACU Discharge <+> 1 Discharge from PACU I Finalized By: Su Loving Non Emp RN Document Signatures Signed By: Su Loving Non Emp RN 06/02/22 15:18 Electronically signed by [facility] Conversion [facility] Director Cerner at 02/01/2023 6:44 PM CDT documented in this encounter Plan of Treatment Not on file documented as of this encounter Visit Diagnoses Not on filedocumented in this encounter Care Teams Table Worker Relationship Specialty Start Date End Date Mumtaz Larson MD [address] [facility] [address] [place] [address] PCP - General Family Medicine 08/26/22 documented as of this encounter
--- OUTSIDE RECORDS SUMMARY | 2025-06-16 09:42 | XMS_ITS | Encounter Summary ---
Author Organization [employer] ([place], [place], [place], [place]) Address [address] [place] [address] Care Team Providers Care Mental Health Nurse Practitioner Name Role Phone Mumtaz Larson MD Primary Care Provider + [phone] Encounter Details Date Type Department Care Team (Late st Contact Info) Description 06/01/[address] [facility] [place] Family Medicine [address] [place] [address] ProviderGabriel MD [address] [place] [address] Social History Tobacco Use Types Packs/Day Years [...] Date Macario rded Speak language other than Egyptian at home Not on file 10/29/2023 Want [...] Cerner Conversion Note - Historical Provider, - 06/01/2022 4:25 PM CDT Swallow Evaluation Entered On: 06/02/2022 9:04 EDT Performed On: 06/02/2022 8:57 EDT by ROMANA OSULLIVAN, PRODUCTION PATTERN MAKER General Information Visit Type, PRODUCTION PATTERN MAKER : Initial evaluation Patient Orders : Speech Language Pathology Additional Tx -111 Start: 06/02/22 8:51:00 EDT, For Dysphagia, Continuous Order - Speech Language Pathology Swallow Evaluation and Treatment - Start: 06/01/22 16:25:00 EDT, Routine, For Swallow Eval and Treat -111 ANNIKA JOHNS PA-C Admission Date : Admission Date/Time: 06/01/22 13:28:00 Medical Chart Reviewed, PRODUCTION PATTERN MAKER : Yes Personal Devices : Personal Devices No Devices Recorded Assistive Devices : Assistive Devices No Devices Recorded Active Diagnoses : 06/01/2022 12:00 Cellulitis, unspecified 06/01/2022 12:00 Difficulty swallowing 06/01/2022 12:00 Myasthenia gravis with (acute) exacerbation Therapy Diagnosis, PRODUCTION PATTERN MAKER : Overt pharyngeal dysphagia patterns with significant [...] be several days given timing of IVIG Diet/Intake Prior to Current Admission : pt reports dysphagia since 03/2022 dx of myasthenia. He reports a 70 lb weight loss since then and states that he doesn't eat much Diet/Intake During Current Admission : NPO Intubation Comment, PRODUCTION PATTERN MAKER : n/a Vital Signs RTF : Vitals Temp BP Pulse RR SpO2 FIO2 Date Wt(kg) Wt(lb) 06/02 05:40 ---- 120/82 --- 16 97 --- 06/01 93.2 205 06/02 03:30 ---- 120/78 --- 16 96 --- 06/01 93.2 205 06/01 23:30 ---- 98/67 --- 16 96 --- 06/01 21:04 ---- 111/77 --- 16 95 --- 06/01 16:00 ---- 176/84 --- -- --- --- 24 Hr Tmax: No Data Available 36 Hr Tmax: No Data Available Vital Signs are the last 5 in the past 48 hours. Weights display the last 5 within 7 days. Initial Wt: 06/01 93.2 kg 205 lb Respiratory Assessment Comment : room air ROMANA OSULLIVAN SLP - 06/02/2022 8:51 EDT General Status Patient Received Status, PRODUCTION PATTERN MAKER : Sitting edge of bed Treatment Start Time, PRODUCTION PATTERN MAKER : 06/02/2022 8:30 EDT Patient Left Status, PRODUCTION PATTERN MAKER : Sitting edge of bed Treatment End Time, PRODUCTION PATTERN MAKER : 06/02/2022 8:55 EDT Treatment Time, PRODUCTION PATTERN MAKER : 25 Minute(s) ROMANA OSULLIVAN SLP - 06/02/2022 8:51 EDT Pain Assessment Pain Scaled Used : FACES Pain Score Pre-Intervention : 2 (Comment: no c/o pain, but endorses fatigue [ROMANA OSULLIVAN SLP - 06/02/2022 8:51 EDT] ) ROMANA OSULLIVAN SLP - 06/02/2022 8:51 EDT Image 1 - Images currently included in the form version of this document have not been included in the text rendition version of the form. Oral Mechanism Dysarthria : Yes Brief Phonation Quality : Wet/gurgly Resonance Types : Hypernasal PRODUCTION PATTERN MAKER Cough : Weak Facial Appearance: : Symmetrical Labial Appearance : Symmetrical Dental/Orthodontia : Teeth, own Condition of Dentition : Intact Soft Palate (Velum) Appearance : Decreased tone, left, Decreased tone, right Soft Palate Function : Elevation, impaired ROMANA OSULLIVAN SLP - 06/02/2022 8:51 EDT Bedside Swallow Swallow Outcome BS Swallow : Impaired Head Control BS Swallow : Neutral head position Presentation Style BS Swallow : Clinician Swallow Position BS Swallow : Upright 90 degrees Trunk Control BS Swallow : Upright centered position Consistencies Trialed BS Swallow : Ice chips, Thin by straw ROMANA OSULLIVAN, [place] - 06/02/2022 8:51 EDT Swallow Impressions Impressions, BS Swallow : Signs/Symptoms of pharyngeal dysphagia ROMANA OSULLIVAN SLP - 06/02/2022 8:51 EDT Bedside Swallow Overall Impressions : Pt brought to [facility] ED for progressively worsening dysphagia. He was recently diagnosed with Myasthenia Gravis. Pt is seen at bedside for dysphagia eval. He is significantly hypernasal, his speech is dysarthric and he has very wet vocal quality. Intelligibility deteriorates rapidly during exam to the point of limited intelligibility. Pt has a weak cough. He admits to poor secretion management and states that he has been using a rag he brought from home. I set up oral suction and provide instruction for pt use. He presents with slow but functional oral skills with tested consistencies, and overt pharyngeal patterns. He has multiple swallows with ice and water though laryngeal movement is limited and I suspect either an incomplete swallow or absent epiglottic deflection. At this time pt is clearly not safe for PO intake or appropriate for instrumental. MD note reviewed and pt is specifically unsafe for thickened liquids. Medications should be non-oral. We discuss that he will likely need several days of enteral feeding via Corpak. Pt states that he has lost approximately 70 lbs since myasthenia dx in March and given such a substantial weight loss, I feel that it is reasonable for MDs to address PEG placement for supplemental nutrition and/or for primary nutritional source during crises. ST will follow for PO safety v. need for instrumental pending timing of IVIG (pt states he received first dose last night). Pt verbalized understanding, discussed with RN (Rupal). ROMNAA OSULLIVAN SLP - 06/02/2022 9:44 EDT Swallow Recommendations Recommended Diet Type, SwRec : Non-oral feeding, NPO, OK for ice Swallow Position, SwRec : Upright 90 degrees Recommended Med Present, SwRec : Non-oral Recommended Exam, Sw Rec : Repeat Bedside Swallow Repeat Swallow Exam Timeframe : 1-3 days ROMANA OSULLIVAN SLP - 06/02/2022 8:51 EDT Therapy Indication Assessment PRODUCTION PATTERN MAKER Indicated : Yes PRODUCTION PATTERN MAKER Problem List : Impaired, Swallowing ROMANA OSULLIVAN SLP - 06/02/2022 8:51 EDT Swallow Plan/Goals Treatment Frequency, PRODUCTION PATTERN MAKER : 5 times per wk Treatment Plan Est w/Pt/Caregvr, Swallow : Yes ROMANA OSULLIVAN SLP - 06/02/2022 8:51 EDT Swallow LTG Grid PRODUCTION PATTERN MAKER Order Runner Goal #1 PRODUCTION PATTERN MAKER Order Runner Goal #2 Swallow LTG : Improve swallowing function for oral intake Other: Pt goal: I want to get better Status : Initial ROMANA OSULLIVAN SLP - 06/02/2022 8:51 EDT ROMANA OSULLIVAN SLP - 06/02/2022 8:51 EDT Swallow Goals Grid Goal #1 Swallow STG : Other: Re-assess for PO diet v. need for instrumental pending timing of IVIG Related To : Return to oral intake Date to Meet : 06/05/2022 EDT Status : Initial goal ROMANA OSULLIVAN SLP - 06/02/2022 8:51 EDT Education Barriers To Learning : None evident Individuals Taught : Patient ROMANA OSULLIVAN SLP - 06/02/2022 8:51 EDT PRODUCTION PATTERN MAKER Education Assessment Grid 1 Aspiration : Needs further teaching, Verbalizes understanding Dysphagia : Verbalizes understanding, Needs further teaching Dysphagia, Effects of Impairment : Verbalizes understanding, Needs further teaching Ice Chips : Verbalizes understanding, Needs further teaching Non-Oral Nutrition : Verbalizes understanding, Needs further teaching NPO : Verbalizes understanding, Needs further teaching Oral Care : Verbalizes understanding, Needs further teaching ROMANA OSULLIVAN SLP - 06/02/2022 8:51 EDT PRODUCTION PATTERN MAKER Education Assessment Grid 2 Physiology of Normal Swallowing : Verbalizes understanding, Needs further teaching Signs of Distress with Oral Intake : Verbalizes understanding, Needs further teaching Speech Language Pathology Treatment Plan : Verbalizes understanding, Needs further teaching Treatment Plan : Verbalizes understanding, Needs further teaching Voice, Effects of Impairment : Verbalizes understanding, Needs further teaching, hypernasality ROMANA OSULLIVAN SLP - 06/02/2022 8:[address] [facility] PRODUCTION PATTERN MAKER Charges Evaluation Swallowing Function : 1 PRODUCTION PATTERN MAKER EA ADDL 15 MIN NO CHARGE : 1 ROMANA OSULLIVAN SLP - 06/02/2022 8:51 EDT Anticipated Discharge Needs, PRODUCTION PATTERN MAKER Anticipated Discharge to : Rehab, high intensity Recommend Continued Therapy at Discharge : Yes ROMANA OSULLIVAN, PRODUCTION PATTERN MAKER - 06/02/2022 8:51 EDT Electronically signed by Sherri [facility] Conversion Aerospace Medicine Physician Cermaida at 02/01/2023 7:10 PM CDT documented in this encounter Plan of Treatment Not on file documented as of this encounter Visit Diagnoses Not on filedocumented in this encounter Care Teams Mental Health Nurse Practitioner Relationship Specialty Start Date End Date Mumtaz Larson MD [address] [facility] [address] [place] [id number] PCP - General Family Medicine 08/26/22 documented as of this encounter
--- OUTSIDE RECORDS SUMMARY | 2025-06-16 09:42 | XMS_ITS | Encounter Summary ---
Author Organization [employer] ([place], [place], [place], [place]) Address [address] [place] [address] Care Team Providers Care Regional Maintenance Manager Name Role Phone Mumtaz Larson MD Primary Care Provider + [phone] Encounter Details Date Type Department Care Team (Late st Contact Info) Description 04/12/2022 Transcribed Document [facility] Pulm & Critical Care Medicine [address] [place] [id number] Teo Pimentel MD [address] [place] [address] Social History Tobacco Use Types Packs/Day Years [...] Conversion Note - Teo Pimentel MD - 04/12/2022 4:56 PM EDT Patient: TIEN GARCIA Age: 66 [...] chest x-ray independently, bibasilar atelectasis. VC 900mL ICU day: 5 PICC 04/09 Review of Systems Constitutional: Weakness. Eye: No double vision. Ear/Nose/Mouth/Throat: No nasal congestion. Respiratory: Shortness of breath, No cough, No sputum production. Cardiovascular: No chest pain. Gastrointestinal: No nausea, No vomiting, No abdominal pain. Genitourinary: No dysuria, No hematuria. Hematology/Lymphatics: No bruising tendency. Endocrine: No polyuria. Immunologic: Immunocompromised. Musculoskeletal: No neck pain. Integumentary: No abrasions. Neurologic: Alert and oriented X4. Health Status Current medications: Medications (48) Active Scheduled: (19) #NaCl 0.9% [...] 11:06) 65 (APR 12 14:23) Mon HR 71 (APR 12 15:00) 40 (APR 12 00:56) 75 (APR 12 13:00) Resp Rate 17 (APR 12 15:00) L 12 (APR 11 21:00) H 50 (APR 12 11:00) SBP H 156 (APR 12 15:00) 134 (APR 12 01:00) H 195 (APR 12 14:00) DBP 90 (APR 12 15:00) 72 (APR 12 01:00) H 101 (APR 12 05:34) MAP 116 (APR 12 15:00) 98 (APR 12 01:00) 141 (APR 12 14:00) SpO2 98 (APR 12 15:00) 94 (APR 11 17:00) 100 (APR 12 11:00) Intake & Output Totals Last 24 Hours (7a-7a) Intake (75 Events) Medications (970.02 mL) Enteral Feeding Amount (520 mL) Enteral Feeding Bolus Amount (190 mL) Output (5 Events) Varela Catheter (2260 mL) Input Total: 1680.02 mL Output Total: 2260 mL Balance: -579.98 mL General: Alert and oriented, No acute distress. Eye: Pupils are equal, round and reactive to light, Normal conjunctiva, R eye ptosis. HENT: Normocephalic, Oral mucosa is moist. Neck: Supple, No lymphadenopathy. Respiratory: BiPAP, dec bilateral bases, no rhonchi or wheezing. Cardiovascular: Normal rate, Regular rhythm, No edema. Gastrointestinal: Soft, Non-tender, Non-distended, Normal bowel sounds. Genitourinary: Support: Urinary catheter ( Indwelling ). Integumentary: Warm, Dry, Edith Endave. Neurologic: Alert, Oriented, Anxious when not on bipap . Psychiatric: Cooperative, Appropriate mood & affect. Review / Management Results review: Labs (Last four charted values) WBC 5.2 (APR 12) 5.2 (APR 11) 7.2 (APR 10) 8.8 (APR 09) HB 13.8 (APR 12) L 12.9 (VERO 25) L 12.6 (VERO [...] 25) 0.8 (VERO 24) 1.1 (VERO 22) PTN 7.5 (VERO 26) 6.8 (VERO 25) 6.4 (VERO 24) 7.7 (VERO 22) ALB L 2.7 (VERO 26) L 2.7 (VERO 25) L 2.7 (VERO 24) 3.7 (VERO 22) . Blood Gases (Current Encounter/Past 24 Hours) pH Art 7.51 HI 04/12/2022 08:36 pCO2 Art 39.0 04/12/2022 06:53 pO2 Art 79.4 LOW 04/12/2022 08:36 HCO3 Art 31.3 HI 04/12/2022 08:36 BE Art 7.8 HI 04/12/2022 08:37 sO2 Art 97.5 04/12/2022 06:53 tHb Art 14.2 04/12/2022 06:53 FHHb 2.5 NA 04/12/2022 06:53 ctO2 19.3 NA 04/12/2022 06:53 FIO2 Art 40 NA 04/12/2022 06:53 Delivery Device Type Art Non-Invasive Ventilation 04/12/2022 06:49 Temperature, F Art 98.6 NA 04/12/2022 06:53 Art Blood Gas (ABG) Site Right Radial 04/12/2022 06:49 Acceptable Arturo's Test Art Acceptable 04/12/2022 06:49 Ventilator Mode Art N/A NA 04/12/2022 06:53 Set Rate Art 16.0 NA 04/12/2022 06:49 Respiratory Rate Art 20.0 NA 04/12/2022 06:49 Comment Art bipap 16/8 NA 04/12/2022 06:49 ABG Num of Draw Attempts 1 NA 04/12/2022 06:49 PaO2/FiO2 calculated 198 NA 04/12/2022 06:53 Radiology Results (Last 48 hours) [id number] -- 04/06/2022 15:42 CR Chest 1 Vw [...] and hilar structures are unremarkable. There is [id number] left pleural effusion and left lower lobe [...] NIF -40, VC .390 04/12 VC 900mL Impression and Plan Pulmonary Acute Respiratory Failure, [...] o2 as needed keep sats 90-94%, currently bipap dependent due to anxiety with increased work of breathing Continue with mechanics (NIF and vital capacity) Q 8 H Serax 10mg PO BID On Seroquel (home med) Keep HOB elevated Neuro following MRI pending (patient is currently unable to tolerate laying flat) Acetylcholine sales receptionist studies pending On Mestinon Also receiving Solumedrol and IVIG day #5 Glycemic control: on correction insulin, target glucose 140-180 mg/dL Prophylaxis: Heparin and Pepcid Nutrition: TF via corpak (terminates in stomach), may increase TF to 30ml/hr today free water at 50ml/hr At risk for respiratory complications CODE STATUS: FULL CODE Disposition: ICU 77 minutes critical care time excluding procedures. Discussed with CHRISTELLE and RN. documented in this encounter Plan of Treatment Not on file documented as of this encounter Visit Diagnoses Not on filedocumented in this encounter Care Teams Regional Maintenance Manager Relationship Specialty Start Date End Date Mumtaz Larson MD [address] [place] [facility] [address] [place] [id number] PCP - General Family Medicine 08/26/22 documented as of this encounter
--- OUTSIDE RECORDS SUMMARY | 2025-06-16 09:42 | XMS_ITS | Encounter Summary ---
Author Organization [employer] ([place], [place], [place], [place]) Address [address] [place] [address] Care Team Providers Care Insemination Worker Name Role Phone Mumtaz Larson MD Primary Care Provider + [phone] Encounter Details Date Type Department Care Team (Late st Contact Info) Description 04/15/2022 Transcribed Document [facility] [place] [address] [place] [address] ProviderGabriel MD [address] [place] [address] Social History Tobacco Use Types Packs/Day Years [...] Conversion Note - Historical Provider, - 04/15/2022 9:28 AM CDT UM Authorization Entered On: 04/15/2022 9:28 EDT Performed On: 04/15/2022 9:28 EDT by Jenise Hoover Rn-Utilization Review Primary Insurance Authorization Authorization and Policy Numbers : Insurance 1 Health Plan: [facility] MEDICARE ADVANTAGE Policy Number: [id number] Authorization Number: Insurance Primary Name : [employer] MEDICARE ADVANTAGE - [id number] Authorization Status-Primary : Admit approved Reference Number-Primary : [id number] Number of Days Authorized-Primary : 5 Day(s) Authorized Service Begin Date-Primary : 04/06/2022 EDT Authorized Service End Date-Primary : 04/11/2022 EDT Historical Authorization Comments-Primary : Comment 1: CLINICAL UPDATE FAXED VIA [employer] FOR 04/12-04/13 (Jenise Hoover Rn-Utilization Review 04/13/2022 16:00) Comment 2: Authorized per fax 04/08/22 @ 0856. Inpatient admission has been approved for this member. Next review due 04/12. -Amanda Kovacs (Kristen Rea, Plant Scientist 04/08/2022 12:37) Comment 3: CLINICALS FAXED VIA [employer] (04/06-04/07) (Temitope Laurent RN 04/07/2022 17:24) Comment 4: Reference number obtained per fax 04/06/22 @ 1645; request for initial clinical. -Amanda Kovacs (Kristen Rea, Plant Scientist 04/07/2022 08:07) Jenise Hoover Rn-Utilization Review - 04/15/2022 9:28 EDT Electronically signed by Sherri [facility] Conversion Toll Testboard Worker Cermaida at 02/01/2023 6:54 PM CDT documented in this encounter Plan of Treatment Not on file documented as of this encounter Visit Diagnoses Not on filedocumented in this encounter Care Teams Insemination Worker Relationship Specialty Start Date End Date Mumtaz Larson MD [address] [place] [facility] [address] [place] [phone] PCP - General Family Medicine 08/26/22 documented as of this encounter
--- OUTSIDE RECORDS SUMMARY | 2025-06-16 09:42 | XMS_ITS | Encounter Summary ---
Author Organization [employer] ([place], [place], [place], [place]) Address [address] [place] [address] Care Team Providers Care Ethologist Name Role Phone Mumtaz Larson MD Primary Care Provider + [phone] Encounter Details Date Type Department Care Team (Late st Contact Info) Description 04/08/2022 Transcribed Document [facility] [place] Family Medicine [address] [place] [address] ProviderGabriel MD [address] [place] [address] Social History Tobacco Use Types Packs/Day Years [...] Conversion Note - Historical Provider, - 04/08/2022 9:22 AM CDT UM Authorization Entered On: 04/08/2022 9:22 EDT Performed On: 04/08/2022 9:22 EDT by BARRERA GRANT RN-UTILIZATION MANAGEMENT REVIEW NON-EXEMPT Primary Insurance Authorization Authorization and Policy Numbers : Insurance 1 Health Plan: [facility] MEDICARE ADVANTAGE Policy Number: [id number] Authorization Number: Insurance Primary Name : [employer] MEDICARE ADVANTAGE - [id number] Authorization Status-Primary : Awaiting callback Reference Number-Primary : [id number] Authorized Service Begin Date-Primary : 04/06/2022 EDT Historical Authorization Comments-Primary : Comment 1: CLINICALS FAXED VIA [employer] (04/06-04/07) (Temitope Laurent RN 04/07/2022 17:24) Comment 2: Reference number obtained per fax 04/06/22 @ 1645; request for initial clinical. -Amanda Chapman. (Kristen Rea, Sizing Machine Tender 04/07/2022 08:07) BARRERA GRANT RN-UTILIZATION MANAGEMENT REVIEW NON-EXEMPT - 04/08/2022 9:22 EDT Electronically signed by Sherri [facility] Conversion Jewel Sorter Cerner at 02/01/2023 6:58 PM CDT documented in this encounter Plan of Treatment Not on file documented as of this encounter Visit Diagnoses Not on filedocumented in this encounter Care Teams Ethologist Relationship Specialty Start Date End Date Mumtaz Larson MD [address] [place] [facility] [address] [place] [phone] PCP - General Family Medicine 08/26/22 documented as of this encounter
--- OUTSIDE RECORDS SUMMARY | 2025-06-16 09:42 | XMS_ITS | Encounter Summary ---
Author Organization [employer] ([place], [place], [place], [place]) Address [address] [place] [address] Care Team Providers Care Integrated Marketing Intern Name Role Phone Mumtaz Larson MD Primary Care Provider + [phone] Encounter Details Date Type Department Care Team (Late st Contact Info) Description 04/13/2022 Transcribed Document [facility] [place] [address] [place] [address] ProviderGabriel MD [address] [place] [address] Social History Tobacco Use Types Packs/Day Years [...] Date Macario rded Speak language other than Brazilian at home Not on file 10/29/2023 Want [...] Cerner Conversion Note - Historical Provider, - 04/13/2022 9:44 AM CDT Patient: TIEN GARCIA Age: 66 years Sex: Male : 1955 Associated Diagnoses: None Author: BLAINE DRAPER MD Subjective Seen and examined this morning Alternating Opti flow with BiPAP last night no Family at bedside labs noted no acute events Review of Systems Blurry vision some Shortness of breath No fever no [...] potassium bicarbonate 20 mEq oral tablet, effervescent: 40 mEq, 2 Tab, Feeding Tube, 1-Time potassium bicarbonate 20 mEq oral tablet, effervescent: [...] Cap, Oral, Daily, 0 Refill(s) Flonase: 1 [place], Nostrils Both, Daily, 0 Refill(s) MetFORMIN (Eqv-Glucophage [...] Tab, Oral, At Bedtime, 0 Refill(s), Medications (49) Active Scheduled: (20) #NaCl 0.9% *FLUSH* inj [...] mL 3.375 Gram, IV Piggyback, Q6HInt potassium bicarb efferves 20 mEq dis tab 40 mEq 2 Tab, Feeding Tube, 1-Time pramipexole 0.25 mg tab 0.25 mg 1 [...] list: Medical Allergic rhinitis / SNOMED CT 444177630 / Confirmed Hard of hearing / SNOMED CT 337223540 / Confirmed High blood pressure / SNOMED CT 07269755 / Confirmed Bronchitis / SNOMED CT 09141256 / Confirmed GERD - Gastro-esophageal reflux disease / SNOMED CT 4642539660 / Confirmed Microscopic colitis / SNOMED CT 883716734 / Confirmed Arthritis / SNOMED CT 8266595 / Confirmed Diabetes mellitus type II / SNOMED CT 00227157 / Confirmed Prostate cancer / SNOMED CT 7988339810 / Confirmed History of obstructive sleep apnea / IMO 18915663 / Confirmed, Active Problems (10) Allergic rhinitis Arthritis Bronchitis Diabetes mellitus type II GERD - Gastro-esophageal reflux disease Hard of hearing High blood pressure History of obstructive sleep apnea Microscopic colitis Prostate cancer Objective VS/Measurements Vitals Signs (last 24 hrs) Last Charted Minimum Maximum Apical HR 65 (APR 12 14:23) L 55 (APR 12 11:06) 65 (APR 12 14:23) Mon HR 102 (APR 13 08:49) 55 (APR 12 10:00) 102 (APR 13 08:49) Resp Rate H 39 (APR 13 08:49) 17 (APR 12 13:00) H 50 (APR 12 11:00) SBP 134 (APR 13 06:00) 113 (APR 13 03:00) H 195 (APR 12 14:00) DBP 85 (APR 13 06:00) 74 (APR 13 03:00) H 102 (APR 12 16:00) MAP 106 (APR 13 06:00) 89 (APR 13 03:00) 141 (APR 12 14:00) SpO2 99 (APR 13 08:49) 94 (APR 12 21:00) 100 (APR 12 11:00) General: Alert and oriented, No acute distress. Eye: Extraocular movements are intact, Normal conjunctiva, ptosis . HENT: Normocephalic. Neck: Supple, Non-tender. Respiratory: Lungs are clear to auscultation, Breath sounds are equal. Cardiovascular: Normal rate, Regular rhythm, No murmur. Gastrointestinal: Soft, Non-tender, Non-distended, Normal bowel sounds, Corpak. Musculoskeletal: Normal range of motion, No tenderness. Integumentary: Warm, No rash. Neurologic: Alert, Oriented, No focal deficits. Psychiatric: Cooperative, Appropriate mood & affect. Review / Management APR 13 03:25 140 102 21 / H 117 L 2.9 H 33 0.80 \ APR 13 03:25 \ 14.0 / 5.1 L 132 / 42.8 \ Radiology Results (Last 48 hours) [id number] -- 04/06/2022 15:42 US Liver Or Hepatic (04/11/2022 10:34) Result: [...] personally viewed, interpreted and dictated the examination. Syeda read and agree with the above final [...] and hilar structures are unremarkable. There is [id number] left pleural effusion and left lower lobe atelectasiswhich appears increased. There is no pneumothorax.IMPRESSION: Interval increase in the small moderate left pleuraleffusion and left lower lobe atelectasis.Images reviewed, interpreted, and dictated by Dr. Sherif Chavis.Transcribed by Joni Rea PA-C.Maura have personally viewed, interpreted and dictated the examination. Syeda read and agree with the above final transcribed report. CR Chest 1 Vw Portable (04/13/2022 06:19) [...] interpreted, and dictated by Lelo Tapia MD Results review: Labs (Last four charted values) WBC 5.1 (VERO 27) 5.2 (VERO 26) 5.2 (VERO 25) 7.2 (VERO 24) HB 14.0 (VERO 27) 13.8 (VERO 26) L 12.9 (VERO 25) L 12.6 (VERO 24) HCT 42.8 (VERO 27) 41.3 (VERO 26) L 39.6 (VERO 25) L 38.5 (VERO 24) Plt L 132 (VERO 27) L 137 (VERO 26) L 161 (VERO 25) 235 (VERO 24) Na 140 (VERO 27) 141 (VERO 26) 144 (VERO 25) H 147 (VERO 24) K L 2.9 (VERO 27) 3.5 (VERO 26) L 3.3 (VERO 25) L 3.0 (VERO 24) Cl 102 (VERO 27) 107 (VERO 26) 109 (VERO 25) H 115 (VERO 24) CO2 H 33 (VERO 27) 31 (VERO 26) 32 (VERO 25) 29 (VERO 24) BUN 21 (VERO 27) H 26 (VERO 26) H 26 (VERO 25) H 25 (VERO 24) Cr 0.80 (VERO 27) 0.90 (VERO 26) 0.80 (VERO 25) L 0.60 (VERO 24) Glu R H 117 (VERO 27) H 171 (VERO 26) H 163 (VERO 25) H 152 (VERO 24) Ca L 8.2 (VERO 27) 8.6 (VERO 26) 8.6 (VERO 25) L 8.2 (VERO 24) PT 11.4 (VERO 26) INR 1.1 (VERO 26) AST H 221 (VERO 26) H 224 (VERO 25) H 129 (VERO 24) H 39 (VERO 22) ALT H 528 (APR 12) H 367 (APR 11) H 179 (APR 10) 49 (APR 08) ALK P 60 (APR 12) 55 (APR 11) 53 (APR 10) 73 (APR 08) T Bili 1.2 (APR 12) H 1.5 (APR 11) 0.8 (APR 10) 1.1 (APR 08) PTN 7.5 (APR 12) 6.8 (APR 11) 6.4 (APR 10) 7.7 (APR 08) ALB L 2.7 (APR 12) L 2.7 (APR 11) L 2.7 (APR 10) 3.7 (APR 08) . Impression and Plan # Myasthenia Gravis crisis AchR antibodies 7.3, blocking 53 CT chest B/L consolidation, no thymoma per report Pyridostigmine IV steroid switched to Prednisone IV IG per neurology monitor symptoms Speech evaluation, S/P Corpak Monitor respiratory status, use BiPAP neurology following Bordetella, HIV not reactive #Acute hypoxic respiratory failure Aspiration pneumonia likely secondary from neuro musculare involvement from myasthenia Respiratory PCR negative, CXR noted CT chest 04/09 B/L consolidation Breathing treatment PRN BiPAP for increased work of breathing At risk of worsening respiratory status and intubation consulted pulmonary #Elevated LFT D/C Tylenol hepatitis panel not reactive, Hepatic US noted Moderate enlarged fatty infiltrated liver check in am #Bradycardia D/C BB order molder meat #Dysphagia Secondary to myasthenia gravis versus stroke MRI brain when he can lay flat Keep n.p.o. Speech therapy Corpak placement #Hypernatremia, improving Added free water #Aspiration pneumonia Sputum culture IV Zosyn Breathing treatment CT chest noted #Hypokalemia and hypophosphatemia Replace check in am #H/O Prostate cancer Flomax #Hypothyroidism Restart levothyroxine Check TSH WNL #Diabetes mellitus Sliding-scale insulin Monitor blood sugar #HTN Use IV hydralazine PRN #Restless leg syndrome Resume home medications Discussed with patient, Discussed with CNA PCT Labs, imaging chart from outside hospital reviewed Medically complex at risk of worsening condition Time spent 29 minutes Disposition: Admitted for dysphagia blurry vision, secondary to myasthenia gravis, neurology following, started on pyridostigmine, IV steroid, MRI brain when able to lay flat, Corpak, PT./OT. Pulmonary following at risk of worsening respiratory status and intubation .close monitoring in ICU Electronically signed by Sherri, [facility] Conversion Continuous Improvement Coach Cerner at 02/01/2023 7:12 PM CDT documented in this encounter Plan of Treatment Not on file documented as of this encounter Visit Diagnoses Not on filedocumented in this encounter Care Teams Integrated Marketing Intern Relationship Specialty Start Date End Date Mumtaz Larson MD [address] [place] [facility] [address] [place] [phone] PCP - General Family Medicine 08/26/22 documented as of this encounter
--- OUTSIDE RECORDS SUMMARY | 2025-06-16 09:42 | XMS_ITS | Encounter Summary ---
Author Organization [employer] ([place], [place], [place], [place]) Address [address] [place] [address] Care Team Providers Care Maintenance Truck Driver Name Role Phone Mumtaz Larson MD Primary Care Provider + [phone] Encounter Details Date Type Department Care Team (Late st Contact Info) Description 04/15/2022 Transcribed Document [facility] [place] Family Medicine [address] [place] [address] ProviderGabriel MD [address] [place] [address] Social History Tobacco Use Types Packs/Day Years [...] On Going Discharge Planning Entered On: 04/15/2022 10:58 EDT Performed On: 04/15/2022 10:57 EDT by CLAYTON RYAN, RN-Antitank Assault GunnerWastewater Treatment Supervisor Progress Note Discharge Arrangements : Patient Post-Acute Information Patient Name: TIEN GARCIA Gender: Male : [birth year] Age: 66 Years No Post-Acute Placement(s) Listed No Post-Acute Service(s) Listed No [place] Referral(s) Listed Discharge Options Discussed with Patient : Acute rehabilitation, Home Health, intermediate Barriers to Discharge Identified : Clinical Condition of Patient Patient Discharge Goal : Inpatient rehabilitation facility CLAYTON RYAN, RN-Antitank Assault Gunner - 04/15/2022 10:57 EDT Narrative Progress Note Narrative Progress Note : message from cardinal carlos Sykes. she is actively following. Historical Progress Note : HD 9. ELOS 6. RAR: moderate. MG crisis. resp failure. bipap 40%/ [address]: advance to reg diet. PT: steps to chair. added OT. dcp: rehab vs . early referral cardinal gonzalez: confirmed they are following & [facility]. spoke with Mr. Garcia & his son, they agree with plan. if progresses well, home with . CLAYTON RYAN, RN-Antitank Assault Gunner - 04/15/22 10:57:47 HD 8. ELOS 6. RAR: moderate. MG crisis. resp failure. anxiety much improved with meds. bipap 40%/ 02 4l nc. zosyn iv. corpak tube feeds. ST re-eval today. PT/OT: steps. bed to chair postition. dcp: likely rehab vs hh. early referral cardinal gonzalez: confirmed they are following & [facility] skilled. spoke with Mr. Garcia. discussed dc planning options. rehab likely. CLAYTON RYAN, RN-Antitank Assault Gunner - 04/14/22 11:45:19 HD 7. ELOS 6. RAR: moderate. MG crisis. resp failure. continuous bipap 40 to optiflow 50/40. zosyn iv. corpak tube feeds. PT/OT: side step to HOB. dcp: likely rehab vs hh. early referral cardinal gonzalez & [facility]. sent [facility]. CLAYTON RYAN, RN-Antitank Assault Gunner - 04/13/22 11:55:38 HD 4/ELOS 6/RRS moderate- on continuous bipap, TF via Corpak, Rr=909, OBL=777, MXB=075, IVIG, IV Solumedrol BID, IV K+ Phosphate x2 doses, IV Zosyn q6, PT/OT/ST following, DCP: home with possible HH vs rehab pending respiratory requirements/mobility. CHADWICK ALANIZ, Discharge Rn - 04/10/22 17:20:37 CLAYTON RYAN, RN-Antitank Assault Gunner - 04/15/2022 10:57 EDT documented in this encounter Plan of Treatment Not on file documented as of this encounter Visit Diagnoses Not on filedocumented in this encounter Care Teams Maintenance Truck Driver Relationship Specialty Start Date End Date Mumtaz Larson MD [address] [facility] [address] [place] [phone] PCP - General Family Medicine 08/26/22 documented as of this encounter
--- OUTSIDE RECORDS SUMMARY | 2025-06-16 09:42 | XMS_ITS | Encounter Summary ---
Author Organization [employer] ([place], [place], [place], [place]) Address [address] [place] [address] Care Team Providers Care Neonatal Nurse Practitioner Name Role Phone Mumtaz Larson MD Primary Care Provider + [phone] Encounter Details Date Type Department Care Team (Late st Contact Info) Description 04/07/2022 Transcribed Document [facility] [place] [address] [place] [address] ProviderGabriel MD [address] [place] [address] Social History Tobacco Use Types Packs/Day Years [...] Conversion Note - Historical Provider, - 04/07/2022 5:18 PM CDT Patient currently NPO with corepack placement. Tube needs advanced under radiology and they are unable to perform until tomorrow. Dr. Steele contacted about these medications and he said to wait on them until after placement so patient may be pre-medicated. Electronically signed by Lizabeth Polanco Conversion Mechanical Integrity Engineer Cerner at 02/01/2023 7:06 PM CDT documented in this encounter Plan of Treatment Not on file documented as of this encounter Visit Diagnoses Not on filedocumented in this encounter Care Teams Neonatal Nurse Practitioner Relationship Specialty Start Date End Date Mumtaz Larson MD [address] [facility] [address] [place] [phone] PCP - General Family Medicine 08/26/22 documented as of this encounter
--- OUTSIDE RECORDS SUMMARY | 2025-06-16 09:42 | XMS_ITS | Encounter Summary ---
Author Organization [employer] ([place], [place], [place], [place]) Address [address] [place] [address] Care Team Providers Care Nutrition Internship Name Role Phone Mumtaz Larson MD Primary Care Provider + [phone] Encounter Details Date Type Department Care Team (Late st Contact Info) Description 04/15/2022 Transcribed Document [facility] [place] Family Medicine [address] [place] [address] ProviderGabriel MD [address] [place] [address] Social History Tobacco Use Types Packs/Day Years [...] Date Macario rded Speak language other than Hong Konger at home Not on file 10/29/2023 Want [...] Conversion Note - Historical Provider, - 04/15/2022 11:44 AM CDT Clinical Dietitian Note Entered On: 04/15/2022 11:44 EDT Performed On: 04/15/2022 11:44 EDT by Ivory Brown, RD, LD Clinical Dietitian Note Clinical Dietitian Note : 04/15: check-on. Per AURICULAR THERAPIST pt diet advanced to regular textures, 60 g CHO. Per RN and pt ate all of breakfast and removed Corpak this am. Pt had BM yesterday. Will continue to monitor intakes and replace Corpak prn. Labs: K 3.3, Glu 126, FSBG 127/134/169 Est nutrient needs: 3030-6237 kcals (MSJ *1.2AF), 85-105g pro (0.8-1.0 g/kg) Recommendations: 1. Continue regular diet. RD to order ONS prn. Goal: intakes >50% at meals and ONS 2. Monitor weight 1-2x weekly Goal: prevent unintentional wt changes 3. Optimize glucose level and adjust insulin PRN Goal: 110-180 4. Monitor elytes and replace prn goal: wnls Nutrition Risk: High Vickie James Dietitian - 04/15/2022 12:06 EDT documented in this encounter Plan of Treatment Not on file documented as of this encounter Visit Diagnoses Not on filedocumented in this encounter Care Teams Nutrition Internship Relationship Specialty Start Date End Date Mumtaz Larson MD [address] [place] [facility] [address] [place] [phone] PCP - General Family Medicine 08/26/22 documented as of this encounter
--- OUTSIDE RECORDS SUMMARY | 2025-06-16 09:42 | XMS_ITS | Encounter Summary ---
Author Organization [employer] ([place], [place], [place], [place]) Address [address] [place] [address] Care Team Providers Care Copper Tapper Name Role Phone Mumtaz Larson MD Primary Care Provider + [phone] Encounter Details Date Type Department Care Team (Late st Contact Info) Description 04/15/2022 Transcribed Document [facility] [place] [place] [address] [place] [address] ProviderGabriel MD [address] [place] [address] Social History Tobacco Use Types Packs/Day Years [...] Conversion Note - Historical Provider, - 04/15/2022 9:36 AM CDT Discharge Summary, PRIMER AND POWDER CANNING LEADER Entered On: 04/15/2022 9:37 EDT Performed On: 04/15/2022 9:36 EDT by HOUSTON MCNEIL, [place] Discharge Notation. PRIMER AND POWDER CANNING LEADER Dysphagia Treatment After Discharge : No Discharge Diet : Regular Discharge Liquids : Thin Discharge Compensatory Strategies : Upright for meals Discharge Summary Comment, PRIMER AND POWDER CANNING LEADER : Pt appears safe to advance to a regular diet and thin liquids. Medication per RN. No further evaluation/tx for oropharyngeal dysphagia is indicated at this time. HOUSTON MCNEIL SLP - 04/15/2022 9:36 EDT Swallow Plan/Goals Swallow LTG Grid PRIMER AND POWDER CANNING LEADER Leak Detection Engineer Goal #1 PRIMER AND POWDER CANNING LEADER Leak Detection Engineer Goal #2 Swallow LTG : Improve swallowing function for oral intake Other: Pt goal: None stated Status : Goal met Date Met : 04/15/2022 EDT HOUSTON MCNEIL SLP - 04/15/2022 9:36 EDT HOUSTON MCNEIL SLP - 04/15/2022 9:36 EDT Swallow Goals Grid Goal #1 Goal #2 Swallow STG : Other: Re-eval for return to PO Tolerate diet advancement (liquid or solids) Related To : Aspiration prevention, Penetration prevention Aspiration prevention, Penetration prevention Date to Meet : 04/08/2022 EDT 04/15/2022 EDT Status : Goal met Goal met Date Met : 04/14/2022 EDT 04/15/2022 EDT HOUSTON MCNEIL SLP - 04/15/2022 9:36 EDT HOUSTON MCNEIL SLP - 04/15/2022 9:36 EDT documented in this encounter Plan of Treatment Not on file documented as of this encounter Visit Diagnoses Not on filedocumented in this encounter Care Teams Copper Tapper Relationship Specialty Start Date End Date Mumtaz Larson MD [address] [place] [facility] [address] [place] [phone] PCP - General Family Medicine 08/26/22 documented as of this encounter
--- OUTSIDE RECORDS SUMMARY | 2025-06-16 09:42 | XMS_ITS | Encounter Summary ---
Author Organization [employer] ([place], [place], [place], [place]) Address [address] [place] [address] Care Team Providers Care Recruitment Consultant Name Role Phone Mumtaz Larson MD Primary Care Provider + [phone] Encounter Details Date Type Department Care Team (Late st Contact Info) Description 06/02/2022 Transcribed Document [facility] [place] Family Medicine [address] [place] [address] ProviderGabriel MD [address] [place] [address] Social History Tobacco Use Types Packs/Day Years [...] on file 10/29 Educational Attainment Answer Date Macraio rded Speak language other than Cameroonian at home Not on file 10/29/2023 Want [...] Conversion Note - Historical Provider, - 06/02/2022 11:14 AM CDT Patient: TIEN GARCIA Age: 66 years Sex: Male : 1955 Associated Diagnoses: None Author: SRAVAN HIDALGO MD-TEETEE Subjective Pt reports some improvement today; denies any shortness of breath or vision difficulty. He is not able to swallow safely Objective VS/Measurements Vital Signs/Vital Measures 06/02/2022 5:40 EDT Systolic Blood Pressure 120 mmHg Diastolic Blood Pressure 82 mmHg Temperature, Fahrenheit 97.7 Deg F Heart Rate Monitored 53 bpm LOW General: Pt is awake and alert; speech is moderately dysarthria/nasal. Eye: Pupils are equal, round and reactive to light, Extraocular movements are intact, no ptosis. Respiratory: Respirations are non-labored. Cardiovascular: Normal rate, Regular rhythm. Neurologic: CN II-VII intact- no significant facial weakness noted. Motor strength is 5/5 throughout, sensation intact, no ataxia noted. Psychiatric: Cooperative. Results Review Labs reviewed Impression and Plan 66yo M with recent diagnosis of myasthenia gravis, recently started on Cellcept and maintained on steroids; he developed bursitis with possible infection in the right elbow and was started on clindamycin, after which his symptoms of myasthenia significantly worsened. He has continued with poor appetite and dysphagia as well as mild dysarthria since his initial diagnosis which worsened with recent infection/abx use. He received a single dose of IV Ig yesterday with some improvement- will continue IV Ig for 3-5 days, depending on clinical course. He can receive his steroids and Mestinon IV for now, pending placement of PEG tube as he is not able to safely swallow at this point. Plan will be to restart Cellcept at discharge for maintenance treatment of myasthenia; this medication can take several months for full effect. Plan discussed at length with patient, and Sound team; neurology will continue to follow. documented in this encounter Plan of Treatment Not on file documented as of this encounter Visit Diagnoses Not on filedocumented in this encounter Care Teams Recruitment Consultant Relationship Specialty Start Date End Date Mumtaz Larson MD [address] [facility] [address] [place] [phone] PCP - General Family Medicine 08/26/22 documented as of this encounter
--- OUTSIDE RECORDS SUMMARY | 2025-06-16 09:42 | XMS_ITS | Encounter Summary ---
Author Organization [employer] ([place], [place], [place], [place]) Address [address] [place] [address] Care Team Providers Care Tack Driller Name Role Phone Mumtaz Larson MD Primary Care Provider + [phone] Encounter Details Date Type Department Care Team (Late st Contact Info) Description 06/02/2022 Transcribed Document [facility] [place] Family Medicine [address] [place] [address] ProviderGabriel MD [address] [place] [address] Social History Tobacco Use Types Packs/Day Years [...] Date Macario rded Speak language other than Micronesian at home Not on file 10/29/2023 Want [...] Historical Provider, - 06/02/2022 1:30 PM CDT UM Authorization Entered On: 06/02/2022 13:33 EDT Performed On: 06/02/2022 13:30 EDT by ROSEMARIE ARMANDO RN Primary Insurance Authorization Authorization and Policy Numbers : Insurance 1 Health Plan: [facility] MEDICARE ADVANTAGE Policy Number: [id number] Authorization Number: Insurance Primary Name : [employer] MEDICARE ADVANTAGE - [id number] Authorization Status-Primary : Awaiting callback Reference Number-Primary : [id number] Authorized Service Begin Date-Primary : 06/01/2022 EDT Authorization Comments-Primary : ADMISSION [facility]ICALS FAXED VIA [employer]. Historical Authorization Comments-Primary : Comment 1: Reference number obtained from fax 06/01/22 @ 1554 - Request for clinical. -Amanda Chapman RN. (Kristen Rea, Intelligence Group Supervisor 06/02/2022 08:29) ROSEAMRIE ARMANDO, KARLA - 06/02/2022 13:30 EDT Electronically signed by [facility] Conversion Manager Latin Cerner at 02/01/2023 6:53 PM CDT documented in this encounter Plan of Treatment Not on file documented as of this encounter Visit Diagnoses Not on filedocumented in this encounter Care Teams Tack Driller Relationship Specialty Start Date End Date Mumtaz Larson MD [address] [facility] [address] [place] [phone] PCP - General Family Medicine 08/26/22 documented as of this encounter
--- OUTSIDE RECORDS SUMMARY | 2025-06-16 09:43 | XMS_ITS | Encounter Summary ---
Author Organization [employer] ([place], [place], [place], [place]) Address [address] [place] [address] Care Team Providers Care Secondary School Teacher Librarian Name Role Phone Mumtaz Larson MD Primary Care Provider + [phone] Encounter Details Date Type Department Care Team (Late st Contact Info) Description 04/13/2022 Transcribed Document [facility] [place] [address] [place] [address] ProviderGarbiel MD [address] [place] [address] Social History Tobacco Use Types Packs/Day Years [...] Conversion Note - Historical Provider, - 04/13/2022 3:10 PM CDT Clinical Dietitian Note Entered On: 04/13/2022 15:12 EDT Performed On: 04/13/2022 15:10 EDT by Ivory Brown, RD, LD Clinical Dietitian Note Clinical Dietitian Note : 04/13: RD check-on. Pt on Bipap, tolerating optiflow a couple hours @ a time per RN. Discussed w/ RN increasing TF to 40 ml/hr while on Bipap w/ Corpak placed mid-stomach. Pulmonary ok w/ TF advancement. Unsuccessful last week w/ corpak advancement attempts (even in IR). Pt may benefit from further attempts. Noted pt LBM 04/07, recommend increasing bowel regimen, pt currently on docusate and senna. Est nutrient needs: 1766-5387 kcals (MSJ *1.2AF), 85-105g pro (0.8-1.0 g/kg) Recommendations: 1. Increase Glucerna 1.5 @40 ml/hr. Once corpak is post-pyloric, AAT to goal rate of 65ml/hr (2145 kcals, 118g pro). FW per MD. Goal: meet est needs 2. If unable to advance corpak, consider modifying to TwoCal HN to run at a lower rate Goal: decrease risk of aspiration 3. If feasible, advance diet per INDUSTRIAL GAS SERVICE HELPER and MD + 60g CHO restriction. RD to assess for supplements Goal: tolerate PO diet advancement 4. Monitor weight 1-2x weekly Goal: prevent unintentional wt changes 5. Optimize glucose level and adjust insulin PRN Goal: glu 70-180 6. Monitor BM. Goal: normal BMs Nutrition Risk: High Vickie James Dietitian - 04/13/2022 15:29 EDT documented in this encounter Plan of Treatment Not on file documented as of this encounter Visit Diagnoses Not on filedocumented in this encounter Care Teams Secondary School Teacher Librarian Relationship Specialty Start Date End Date Mumtaz Larson MD [address] [place] [facility] [address] [place], [place] [id number] PCP - General Family Medicine 08/26/22 documented as of this encounter
--- OUTSIDE RECORDS SUMMARY | 2025-06-16 09:43 | XMS_ITS | Encounter Summary ---
Author Organization [employer] ([place], [place], [place], [place]) Address [address] [place] [address] Care Team Providers Care Road Repairer Name Role Phone Mumtaz Larson MD Primary Care Provider + [phone] Encounter Details Date Type Department Care Team (Late st Contact Info) Description 04/07/2022 Transcribed Document [facility] [place] [address] [place] [address] ProviderGabriel MD [address] [place] [address] Social History Tobacco Use Types Packs/Day Years [...] Date Macario rded Speak language other than Congolese at home Not on file 10/29/2023 Want [...] Conversion Note - Historical Provider, - 04/07/2022 5:00 AM CDT Chart Check - Review Order Profile Entered On: 04/07/2022 4:02 EDT Performed On: 04/07/2022 5:00 EDT by Lynda Dimas NON EMP RN Chart Check Powerplans Initiated/Discontinued as Appropriate : Yes Lynda Dimas NON EMP RN - 04/07/2022 4:02 EDT Electronically signed by Sherri [facility] Conversion Financial Sales Advisor Cerner at 02/01/2023 6:55 PM CDT documented in this encounter Plan of Treatment Not on file documented as of this encounter Visit Diagnoses Not on filedocumented in this encounter Care Teams Road Repairer Relationship Specialty Start Date End Date Mmutaz Larson MD [address] [place] [facility] [address] [place] [id number] PCP - General Family Medicine 08/26/22 documented as of this encounter
--- OUTSIDE RECORDS SUMMARY | 2025-06-16 09:43 | XMS_ITS | Encounter Summary ---
Author Organization [employer] ([place], [place], [place], [place]) Address [address] [place] [address] Care Team Providers Care Desktop Technician Name Role Phone Mumtaz Larson MD Primary Care Provider + [phone] Encounter Details Date Type Department Care Team (Late st Contact Info) Description 04/07/2022 Transcribed Document [facility] [place] [address] [place] [address] ProviderGabriel MD [address] [place] [address] Social History Tobacco Use Types Packs/Day Years [...] Conversion Note - Historical Provider, - 04/07/2022 2:00 AM CDT Service Order Dispatcher Chief Details Entered On: 04/07/2022 1:58 EDT Performed On: 04/07/2022 2:00 EDT by Lynda Dimas NON EMP RN Order Details Order Detail : N/A Patient Needs Meds Crushed/Liquid : No Lynda Dimas NON EMP RN - 04/07/2022 1:58 EDT Electronically signed by Sherri [facility] Conversion Auto Body Repairman Cerner at 02/01/2023 6:50 PM CDT documented in this encounter Plan of Treatment Not on file documented as of this encounter Visit Diagnoses Not on filedocumented in this encounter Care Teams Desktop Technician Relationship Specialty Start Date End Date Mumtaz Larson MD [address] [facility] [address] [place] [phone] PCP - General Family Medicine 08/26/22 documented as of this encounter
--- OUTSIDE RECORDS SUMMARY | 2025-06-16 09:43 | XMS_ITS | Encounter Summary ---
Author Organization [employer] ([place], [place], [place], [place]) Address [address] [place] [address] Care Team Providers Care Email Production Specialist Name Role Phone Mumtaz Larson MD Primary Care Provider + [phone] Encounter Details Date Type Department Care Team (Late st Contact Info) Description 04/07/2022 Transcribed Document [facility] [place] Medicine [address] [place] [address] ProviderGabriel MD [address] [place] [address] Social History Tobacco Use Types Packs/Day Years [...] Date Macario rded Speak language other than German at home Not on file 10/29/2023 Want [...] Conversion Note - Historical Provider, - 04/07/2022 3:14 PM CDT Treatment Intervention, PT Entered On: 04/10/2022 11:39 EDT Performed On: 04/10/2022 11:13 EDT by SAMMI GUTIÉRREZ PTA General Information, PT Visit Type, PT : Treatment Note Patient Orders : Order Date Order Ordering 04/06/2022 16:18 PT Evaluation and Treatment Ordered By: BLAINE DRAPER MD 04/07/2022 15:14 PT Additional Treatment Ordered By: KAROLYN PARHAM PT Active Diagnoses : No Qualifying Diagnoses Therapy Diagnosis, PT : Decreased strength and endurance s/p admit with dysphagia and slurred speech. Admission Date : 04/06/2022 15:42 Personal Devices : Personal Devices No Devices Recorded Assistive Devices : Assistive Devices No Devices Recorded SAMMI GUTIÉRREZ PTA - 04/10/2022 11:32 EDT General Status Patient Received Status : Supine in bed Treatment Start Time : 04/10/2022 11:05 EDT Patient Left Status : Supine in bed, RN/PCT informed, All needs met and within reach RN/PCT Informed Comment : marii Chery Treatment End Time : 04/10/2022 11:13 EDT Treatment Time : 8 Minute(s) SAMMI GUTIÉRREZ PTA - 04/10/2022 11:32 EDT Therapeutic Exercises PT Range of Motion Grid Exercise #1 Exercise #2 Exercise : Active Range Of Motion (AROM) Active Range Of Motion (AROM) Location : Upper extremity Lower extremity Laterality : Bilateral Bilateral Position : Supine Supine Reps : x 10 x 10 Patient Response/Comment : pt only able to perform 3 reps of heel slides on LLE due to catheter discomfort SAMMI GUTIÉRREZ PTA - 04/10/2022 11:32 EDT SAMMI GUTIÉRREZ PTA - 04/10/2022 11:32 EDT Gait Training/Assessment, PT Gait Assistance Level : Unable to assess/activity not appropriate Gait Training Comment : nsg deferred OOB due to pt respirtory status SAMMI GUTIÉRREZ DAY SPA MANAGER - 04/10/2022 11:32 EDT Cognitive Treatment, PT Orientation : Oriented x 4 SAMMI GUTIÉRREZ DAY SPA MANAGER - 04/10/2022 11:32 EDT Edu Topics Physical Therapy Education Grid Balance Training : Needs further teaching Bed Mobility Training : Needs further teaching Gait Training : Needs further teaching Role of Physical Therapy : Verbalizes understanding Safety : Needs further teaching Transfer Training : Needs further teaching SAMMI GUTIÉRREZ, DAY SPA MANAGER - 04/10/2022 11:32 EDT Indication Assesessment, PT Physical Therapy Indicated : Yes SAMMI GUTIÉRREZ DAY SPA MANAGER - 04/10/2022 11:32 EDT Plan of Care, PT PT Tx Plan/Goals Established w Patient : SAMMI Freedman DAY SPA MANAGER - 04/10/2022 11:32 EDT Short Term Goals Transfer STG Grid Goal #1 Destination : Chair, with arms Type : Other: step-to Assist : Independent, complete Date to Meet : 04/14/2022 EDT Goal Status : Intial Goal SAMMI GUTIÉRREZ DAY SPA MANAGER - 04/10/2022 11:32 EDT Ambulation STG Grid Goal #1 Device : Other: TBD Distance : 200' Assist : Supervision or set-up Date to Meet : 04/14/2022 EDT Goal Status : Intial Goal SAMMI GUTIÉRREZ DAY SPA MANAGER - 04/10/2022 11:32 EDT Stairs STG Grid Goal #1 Device : None Number of Steps : 6 Handrail(s) : One handrail Assist : Assist, minimal Date to Meet : 04/14/2022 EDT Goal Status : Initial goal SAMMI GUTIÉRREZSANAZ - 04/10/2022 11:32 EDT [facility] Goals Ambulation LTG Grid Goal #1 Device : None Distance : 300' Assist : Independent, complete Date to Meet : 04/21/2022 EDT Goal Status : Intial Goal SAMMI GUTIÉRREZSANAZ - 04/10/2022 11:32 EDT Stairs LTG Grid Goal #1 Device : None Number of Steps : 12 Handrail(s) : One handrail Assist : Independent, complete Date to Meet : 04/21/2022 EDT Goal Status : Intial Goal SAMMI GUTIÉRREZ SANAZ - 04/10/2022 11:32 EDT Treatment Note Subjective Comment : pt agreeable to PTx, nsg cleared pt for in bed only due to being bipap dependent Assessment : pt able to perform ther ex with cues for correct form, pt would benefit from continued therapy to increase endurance and decrease safety risk Plan for Treatment : continue POC SAMMI GUTIÉRREZ SANAZ - 04/10/2022 11:32 EDT Pain Assessment Pain Score During-Intervention : 4 Location : Penis Pain Improved by : Relaxation, Repositioning Pain Comment : dotson catheter discomfort with LLE heel slide SAMMI GUTIÉRREZ, SANAZ - 04/10/2022 11:32 EDT Image 1 - Images currently included in the form version of this document have not been included in the text rendition version of the form. Anticipated Discharge Needs, OT/PT Anticipated Discharge to : Unable to assess at this time (Comment: pt may be able to go home with home health if respirtory status improves but may need rehab if not [SAMMI GUTIÉRREZSANAZ - 04/10/2022 11:32 EDT] ) Recommend Continued Therapy at Discharge : Yes SAMMI GUTIÉRREZSANAZ - 04/10/2022 11:32 EDT [facility] Charges DAY SPA MANAGER PT Therap. Exercise 15 min-DAY SPA MANAGER : 1 SAMMI GUTIÉRREZSANAZ - 04/10/2022 11:32 EDT Electronically signed by Sherri [facility] Conversion Business Continuity Manager Cerner at 02/07/2023 1:08 PM CDT documented in this encounter Plan of Treatment Not on file documented as of this encounter Visit Diagnoses Not on filedocumented in this encounter Care Teams Email Production Specialist Relationship Specialty Start Date End Date Mumtaz Larson MD [address] [place] [facility] [address] [place] [phone] PCP - General Family Medicine 08/26/22 documented as of this encounter
--- OUTSIDE RECORDS SUMMARY | 2025-06-16 09:43 | XMS_ITS | Encounter Summary ---
Author Organization [employer] ([place], [place], [place], [place]) Address [address] [place] [address] Care Team Providers Care Sharepoint Trainer Name Role Phone Mumtaz Larson MD Primary Care Provider + [phone] Encounter Details Date Type Department Care Team (Late st Contact Info) Description 06/03/2022 Transcribed Document [facility] [place] Family Medicine [address] [place] [address] ProviderGabriel MD [address] [place] [address] Social History Tobacco Use Types Packs/Day Years [...] Conversion Note - Historical Provider, - 06/03/2022 10:34 AM CDT Patient: TIEN GARCIA Age: 66 years Sex: Male : 1955 Associated Diagnoses: None Author: SRAVAN HIDALGO MD-TEETEE Subjective Pt reports ongoing improvement; able to tolerate some PO. He did well with PEG placement yesterday Objective VS/Measurements Vital Signs/Vital Measures 06/03/2022 9:56 EDT Systolic Blood Pressure 127 mmHg Diastolic Blood Pressure 76 mmHg Temperature, Fahrenheit 97.7 Deg F Heart Rate Monitored 65 bpm General: awake and alert, in no distress; speech is very mildly dysarthric, improved from yesterday. Eye: Pupils are equal, round and reactive to light, Extraocular movements are intact, no ptosis. Respiratory: Respirations are non-labored. Cardiovascular: Normal rate, Regular rhythm. Neurologic: CN II-VII intact; no facial weakness noted. Motor strength is 5/5 throughout, sensation intact, no ataxia noted. Psychiatric: Cooperative, Appropriate mood & affect. Results Review Labs reviewed Impression and Plan 66yo M with recent diagnosis of myasthenia gravis currently admitted with worsened symptoms after he started clindamycin for possible bursitis/abscess in right elbow; he was diagnosed with myasthenia in March when he presented with his initial symptoms of dysarthria/dysphagia and did have positive AchR antibodies at that time. He is admitted with exacerbation possibly secondary to the antibiotic- clindamycin can worsen myasthenia. He is responding well to IV Ig, will plan for today to be last dose; he did have PEG placed yesterday given persistent dysphagia and weight loss, will restart Mestinon per tube and change prednisone back to oral/per tube. I will restart Cellcept tomorrow once he has completed IV Ig course today. He has follow up to neurology, Dr. Fields, on 06/15 this month and should keep this appointment. He may be appropriate for discharge home tomorrow if he continues to do well. Plan discussed with patient and ; will f/u again tomorrow. Electronically signed by Lizabeth Polanco Conversion Physician Compensation Analyst Cerner at 02/01/2023 6:52 PM CDT documented in this encounter Plan of Treatment Not on file documented as of this encounter Visit Diagnoses Not on filedocumented in this encounter Care Teams Sharepoint Trainer Relationship Specialty Start Date End Date Mumtaz Larson MD [address] [facility] [address] [place] [id number] PCP - General Family Medicine 08/26/22 documented as of this encounter
--- OUTSIDE RECORDS SUMMARY | 2025-06-16 09:43 | XMS_ITS | Encounter Summary ---
Author Organization [employer] ([place], [place], [place], [place]) Address [address] [place] [address] Care Team Providers Care Casting Director Name Role Phone Mumtaz Larson MD Primary Care Provider + [phone] Encounter Details Date Type Department Care Team (Late st Contact Info) Description 04/13/2022 Transcribed Document [facility] [place] [address] [place] [address] ProviderGabriel MD [address] [place] [address] Social History Tobacco Use Types Packs/Day Years [...] Date Macario rded Speak language other than Thai at home Not on file 10/29/2023 Want [...] Conversion Note - Historical Provider, - 04/13/2022 9:07 AM CDT FINANCIAL REP Attempt to Treat Entered On: 04/13/2022 9:07 EDT Performed On: 04/13/2022 9:07 EDT by HOUSTON MNCEIL SLP Attempt to Treat Unable to Treat Due To : Acuity of Illness Inability to Treat Comment : Pt is biPap dependent. Hold and check Wednesday. Notification : KARLA Seay CARLY, [place] - 04/13/2022 9:07 EDT Electronically signed by Sherri [facility] Conversion Clerk General Office Cerner at 02/01/2023 7:06 PM CDT documented in this encounter Plan of Treatment Not on file documented as of this encounter Visit Diagnoses Not on filedocumented in this encounter Care Teams Casting Director Relationship Specialty Start Date End Date Mumtaz Larson MD [address] [facility] [address] [place] [phone] PCP - General Family Medicine 08/26/22 documented as of this encounter
--- OUTSIDE RECORDS SUMMARY | 2025-06-16 09:43 | XMS_ITS | Encounter Summary ---
Author Organization [employer] ([place], [place], [place], [place]) Address [address] [address] Care Team Providers Care Learning Facilitator Name Role Phone Mumtaz Larson MD Primary Care Provider + [phone] Encounter Details Date Type Department Care Team (Late st Contact Info) Description 04/13/2022 Transcribed Document [facility] [place] [address] [place] [address] ProviderGabriel MD [address] [place] [address] Social History Tobacco Use Types Packs/Day Years [...] Conversion Note - Historical Provider, - 04/13/2022 11:54 AM CDT On Going Discharge Planning Entered On: 04/13/2022 11:55 EDT Performed On: 04/13/2022 11:54 EDT by CLAYTON RYAN, RN-Fruit Harvest Machine OperatorCity Magistrate Progress Note Discharge Arrangements : Patient Post-Acute Information Patient Name: TIEN GARCIA Gender: Male : [birth year] Age: 66 Years No Post-Acute Placement(s) Listed No Post-Acute Service(s) Listed No [place] Referral(s) Listed Discharge Options Discussed with Patient : Acute rehabilitation, Home Health, [facility] Barriers to Discharge Identified : Clinical Condition of Patient Patient Discharge Goal : Inpatient rehabilitation facility CLAYTON RYAN, RN-Fruit Harvest Machine Operator - 04/13/2022 11:54 EDT Narrative Progress Note Narrative Progress Note : HD 7. ELOS 6. RAR: moderate. MG crisis. resp failure. continuous bipap 40 to optiflow 50/40. zosyn iv. corpak tube feeds. PT/OT: side step to HOB. dcp: likely rehab vs hh. early referral [facility]. Historical Progress Note : HD 4/ELOS 6/RRS moderate- on continuous bipap, TF via Corpak, Lb=325, HMK=629, PBF=231, IVIG, IV Solumedrol BID, IV K+ Phosphate x2 doses, IV Zosyn q6, PT/OT/ST following, DCP: home with possible HH vs rehab pending respiratory requirements/mobility. CHADWICK ALANIZ, Senior Packaging Engineer - 04/10/22 17:20:37 CLAYTON RYAN, RN-Fruit Harvest Machine Operator - 04/13/2022 11:54 EDT Electronically signed by Sherri [facility] Conversion Recorder Gravity Prospecting Cerner at 02/01/2023 7:06 PM CDT documented in this encounter Plan of Treatment Not on file documented as of this encounter Visit Diagnoses Not on filedocumented in this encounter Care Teams Learning Facilitator Relationship Specialty Start Date End Date Mumtaz Larson MD [address] [facility] [address] [place] [phone] PCP - General Family Medicine 08/26/22 documented as of this encounter
--- OUTSIDE RECORDS SUMMARY | 2025-06-16 09:43 | XMS_ITS | Encounter Summary ---
Author Organization [employer] ([place], [place], [place], [place]) Address [address] [place] [address] Care Team Providers Care Roller Coaster Operator Name Role Phone Mumtaz Larson MD Primary Care Provider + [phone] Encounter Details Date Type Department Care Team (Late st Contact Info) Description 06/03/2022 Transcribed Document [facility] [place] Family Medicine [address] [place] [address] ProviderGabriel MD [address] [place] [address] Social History Tobacco Use Types Packs/Day Years [...] Date Macario rded Speak language other than Welsh at home Not on file 10/29/2023 Want [...] Conversion Note - Historical Provider, - 06/03/2022 7:56 AM CDT Patient: TIEN GARCIA Age: 66 Years Sex: Male : 1955 Assessment/Plan Resolving right olecranon bursitis. Highly unlikely to be infectious in nature. Do not expect MRI to reveal any osteomyelitis. Maintain range of motion. Avoid any pressure such as resting on the elbow. Expect spontaneous resolution VTE Prophylaxis - Medical Enoxaparin 40 mg, SubCutaneous, Inj, [id number], Routine, Start 06/01/22 18:00:00 EDT, 06/01/22 17:01:00 EDT (ANNIKA JOHNS PA-C) Subjective Patient states pain in elbow is improving. Vital Signs T: 36.3 ??C TMIN: 36.3 ??C TMAX: 36.9 ??C HR: 68(Monitored) RR: 16 BP: 121/83 SpO2: 96% HT: 185.42 cm WT: 91.05 kg BMI: 26.48 Oxygen Settings (Last) Oxygen Therapy Mode: Room air (06/03/22 05:42:00) Intake & Output Totals Last 24 Hours (7a-7a) Input Total: 1603.91 mL Output Total: 0 mL Balance: 1603.91 mL Physical Exam Examination shows mild erythema over the right olecranon bursa. There is also moderate swelling. No tenderness to palpation. Minimal fluctuance noted. Patient has pronation, supination, extension, and full flexion with good strength and total comfort. Neurologic exam and vascular exam distally are normal. Medications allopurinol, 300 mg= 1 Tab, Oral, Daily Benadryl, 12.5 mg= 0.25 mL, IV Push, Daily chlorthalidone, 25 mg= 1 Tab, Oral, Daily cholecalciferol, 10 mcg, Oral, Daily Dextrose 50% injection, 25 Gram= 50 mL, IV Push, Q15Min, PRN Dextrose 50% injection, 25 Gram= 50 mL, IV Push, Q15Min, PRN Dextrose 50% injection, 25 Gram= 50 mL, IV Push, Q15Min, PRN Dextrose 50% injection, 12.5 Gram= 25 mL, IV Push, Q15Min, PRN Flonase, 1 Miller, Nostrils Both, Daily glucagon, 1 mg= 1 mL, IntraMuscular, Q15Min, PRN glucose 4 g oral tablet, chewable, 16 Gram= 4 Tab, Chew, Q15Min, PRN glucose 40% oral gel, 15 Gram= 37.5 mL, Oral, Q15Min, PRN immune globulin intravenous, 30 Gram= 300 mL, IV Piggyback, Daily insulin regular sliding scale, Scale A, SubCutaneous, Q6H Lactated Ringers Injection intravenous solution 1,000 mL, 1000 mL, IntraVENous levothyroxine, 50 mcg= 2.5 mL, IV Push, Q48H lidocaine 1% injectable solution, 0.5 mL, IntraDermal, 1-Time, PRN Lopressor, 5 mg= 5 mL, IV Push, Q6H Lovenox, 40 mg= 0.4 mL, SubCutaneous, [id number] methylPREDNISolone sodium succinate, 60 mg= 0.96 mL, IV Push, Daily Normal Saline 1,000 mL, 1000 mL, IntraVENous Os-Viral 500 + D, 1 Tab, Oral, BID potassium bicarbonate, 20 mEq= 1 Tab, Oral, BID pramipexole, 0.25 mg= 1 Tab, Oral, At Bedtime Protonix IV, 40 mg, IV Push, Daily pyridostigmine, 1 mg= 0.2 mL, IV Push, TID QUEtiapine, 50 mg= 2 Tab, Oral, BID TriCor 145 mg oral tablet, 145 mg= 1 Tab, Oral, Daily vancomycin + Sodium Chloride 0.9% intravenous solution 250 mL Zosyn + Sodium Chloride 0.9% intravenous solution 100 mL Lab Results Test Name Test Result Date/Time Sodium Level 134 mmol/L (Low) 06/02/2022 10:35 EDT Potassium Level 3.9 mmol/L 06/02/2022 10:35 EDT Chloride Level 101 mmol/L (Low) 06/02/2022 10:35 EDT Carbon Dioxide Level 27 mmol/L 06/02/2022 10:35 EDT Anion Gap 10 06/02/2022 10:35 EDT Glucose Level 111 mg/dL (High) 06/02/2022 10:35 EDT Blood Urea Nitrogen 13 mg/dL 06/02/2022 10:35 EDT Creatinine Level 0.80 mg/dL 06/02/2022 10:35 EDT eGFR >60 mL/min/1.73m2 06/02/2022 10:35 EDT eGFR NonAfrican >60 mL/min/1.73m2 06/02/2022 10:35 EDT Bun/Creatinine 16.2 06/02/2022 10:35 EDT Calcium Level 9.0 mg/dL 06/02/2022 10:35 EDT Device Comment 1 Notified Nurse RBV 06/03/2022 06:42 EDT Device Comment 1 Notified Nurse RBV 06/03/2022 00:14 EDT Device Comment 1 Notified Nurse RBV 06/02/2022 16:08 EDT Device Comment 1 Notified Nurse RBV 06/02/2022 11:10 EDT Glucose POC2 124 mg/dL (High) 06/03/2022 06:42 EDT Glucose POC2 124 mg/dL (High) 06/03/2022 00:14 EDT Glucose POC2 90 mg/dL 06/02/2022 16:08 EDT Glucose POC2 103 mg/dL 06/02/2022 11:10 EDT WBC 10.3 K/uL (High) 06/02/2022 10:35 EDT RBC 5.34 Million/uL 06/02/2022 10:35 EDT Hgb 15.7 g/dL 06/02/2022 10:35 EDT Hct 46.3 % 06/02/2022 10:35 EDT MCV 86.7 fL 06/02/2022 10:35 EDT MCH 29.4 pg 06/02/2022 10:35 EDT MCHC 33.9 Gram/dL 06/02/2022 10:35 EDT Platelet Count 390 K/uL (High) 06/02/2022 10:35 EDT MPV 9.3 fL (Low) 06/02/2022 10:35 EDT RDW 13.5 % 06/02/2022 10:35 EDT Slide Review No 06/02/2022 10:35 EDT Vancomycin Trough 47.2 mcg/mL (Critical) 06/03/2022 04:37 EDT Electronically signed by Sherri [facility] Conversion Underground Production Foreperson Cerner at 02/01/2023 7:08 PM CDT documented in this encounter Plan of Treatment Not on file documented as of this encounter Visit Diagnoses Not on filedocumented in this encounter Care Teams Roller Coaster Operator Relationship Specialty Start Date End Date Mumtaz Larson MD [address] [facility] [address] [place] [phone] PCP - General Family Medicine 08/26/22 documented as of this encounter
--- OUTSIDE RECORDS SUMMARY | 2025-06-16 09:43 | XMS_ITS | Encounter Summary ---
Author Organization [employer] ([place], [place], [place], [place]) Address [address] [place] [address] Care Team Providers Care Fire Sprinkler Service Technician Name Role Phone Mumtaz Larson MD Primary Care Provider + [phone] Encounter Details Date Type Department Care Team (Late st Contact Info) Description 06/01/2022 Transcribed Document [facility] [place] Family Medicine [address] [place] [address] ProviderGabriel MD [address] [place] [address] Social History Tobacco Use Types Packs/Day Years [...] Date Macario rded Speak language other than [place] at home Not on file 10/29/2023 Want [...] Conversion Note - Historical Provider, - 06/01/2022 11:14 PM CDT DATE OF CONSULTATION: 06/01/2022 HISTORY: Tien Dejesus is a 66-year-old white male with diabetes and hypertension, who was diagnosed with myasthenia gravis in March 2022, when he was hospitalized here for dysarthria, dysphagia, and ptosis for which he received IVIG and steroids. The patient presented to the emergency room today for worsening dysphagia, and I have been asked to see him for his myasthenia gravis. Following history is obtained from speaking to the patient and reviewing the chart. Apparently, sometime in February or March of this year, the patient developed rapidly progressive dysarthria, dysphagia, and ptosis. The patient was admitted to our hospital from April 06 to April 16 at that time, and based on the strong clinical suspicion of myasthenia gravis, the patient received IVIG and steroids, and was started on Mestinon. The patient improved during that admission, but states that his biggest problem since being discharged on April 16 has been persistent dysphagia and he says it is difficult for him to eat a normal meal, and he has been losing weight. In reviewing the chart, it looks like his weight was 104 kg when he was hospitalized here in March, but is now 93 kg. While hospitalized here, he did have acetylcholine receptor antibody sent off which were positive. When the patient was discharged from here on April 16, his discharge medications included prednisone 60 mg a day (with a tapering dose), Mestinon 90 mg three times a day. The patient did follow up with the outpatient neurologist, Dr. Fields just a couple weeks ago. The patient tells me that when he saw Dr. Fields, his prednisone was down to 20 mg a day and when Dr. Fields heard about his persistent dysphagia, Dr. Fields increased his prednisone up to 50 mg a day and started him on CellCept [address] Fields also changed the patient's Mestinon from 90 mg three times a day to 60 mg four times a day. The patient also tells me that he still has some dysarthria, particularly at the end of the day or if he has been talking a lot. Apparently, sometime last week, he developed a swollen red elbow that was thought to be cellulitis and his primary care physician started him on clindamycin. Since being started on clindamycin a few days ago, he noticed that his dysphagia was getting worse and this morning he could not swallow his pills at all and therefore, he came to the emergency room and was admitted. In the emergency room out of concern for worsening myasthenia gravis, the patient did receive one dose of Solu-Medrol 125 mg. He also received one dose of 30 g of IVIG. The patient tells me he feels a little bit better but still feels like his swallowing is normal. He is concerned about his weight loss over the last few months. He has been made n.p.o. except for medications, and the nursing staff tells me that they were able to get his medicines down with thickened liquids. CURRENT MEDICATIONS: In the hospital include; 1. Allopurinol. 2. Atenolol. 3. Calcium with vitamin D. 4. Chlorthalidone. 5. Cholecalciferol. 6. Lovenox 40 mg a day. 7. Fenofibrate. 8. Flonase. 9. Insulin. 10. Levothyroxine. 11. CellCept 500 twice a day. 12. Protonix. 13. Potassium. 14. Mirapex. 15. Prednisone 50 mg a day. 16. Mestinon 60 mg four times a day. 17. Seroquel 50 mg twice a day. 18. IV vancomycin and Zosyn for the cellulitis of his right elbow. Medications at home according to a computerized home medication list may have included; 1. Prilosec. 2. Calcium with vitamin D. 3. Potassium. 4. Mirapex. 5. Cymbalta. 6. Metformin. 7. Sulfa. 8. Clindamycin. 9. Vitamin D. 10. Mestinon 60 mg four times a day. 11. Prednisone 50 mg a day. 12. Seroquel. 13. Cellcept 500 twice a day. 14. Allopurinol. 15. TriCor. 16. Flonase. 17. Levothyroxine. 18. Atenolol with chlorthalidone. ALLERGIES: None known. PAST MEDICAL HISTORY: 1. He used to be a smoker until he quit in the . 2. No alcohol use. 3. No illicit drug use. 4. Diabetes. 5. Hypertension. 6. He has had hand surgery. 7. Appendectomy. 8. Tonsillectomy. 9. He had back surgery last year. 10. Earlier this year he was hospitalized in [place] for meningitis. 11. Depression. 12. Myasthenia gravis, see above. SOCIAL HISTORY: The patient lives in [place], [place], with his . He has 4 children. 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 He drives and walks independently. FAMILY HISTORY: He says both of his parents are alive and well in their 90s. REVIEW OF SYSTEMS: GENERAL: He has had a COVID vaccine. He tells me that last year he did have COVID. EYES: He did have some double vision in March, but that has resolved. EARS: He denies any new hearing loss, but he has chronic hearing loss. CARDIAC: He denies any chest pain. RESPIRATORY: He denies any shortness of breath. GI: He denies any changes in his bowel habits. : He does have a history of prostate cancer in the past. SKIN: He denies any rashes. MUSCULAR: He denies any muscle aches. NEUROLOGIC: He denies any migraine. PSYCHIATRIC: He denies any suicidality. ENDOCRINE: He does have diabetes. HEMATOLOGIC: He does not think he has ever had a blood transfusion. PHYSICAL EXAMINATION: GENERAL: He is a well-developed male, in no acute distress with mild dysarthria, sitting in bed. VITAL SIGNS: His blood pressure is 176/84, pulse is 82, respirations are 18. HEART: Regular rate and rhythm. LUNGS: Clear. NECK: Supple without any bruits. NEURO: An ophthalmologic exam was done. His pupils react equally to light, but I could not see his disk. Motor exam shows 5/5 strength in both arms and legs. His tone in both arms and legs is normal. He is alert and oriented x3. He has good recent and remote recall. His attention span and concentration are normal. Language skills are normal. Fund of knowledge is adequate. Cranial nerves II through XII are intact except for some mild dysarthria. Coordination shows intact ongoav-bm-wyao and kogo-fj-onxp. Gait was not tested. DIAGNOSTIC STUDIES: LABORATORY RESULTS: The patient's acetylcholine receptor antibodies were positive in March of this year. His sodium is 131, glucose is 109, BUN is 14, creatinine is 0.8. White count is 12.5, hematocrit is 48.4, platelet count is 406. IMAGING STUDIES: The patient had a CT scan of his chest looking for a thymoma in March that showed marked bibasilar consolidation. ASSESSMENT: Tien Dejesus is a 66-year-old male with diabetes and hypertension, who was diagnosed with myasthenia gravis in March of this year when hospitalized for dysarthria, dysphagia, and ptosis. During that admission, he was started on steroids, Mestinon, and received IVIG. Since his diagnosis of myasthenia gravis, he says he has continued to eat poorly and having dysphagia. He was recently started on Cellcept two weeks ago. He is still on prednisone 50 mg a day and Mestinon 60 mg four times a day. Recently, he was started on clindamycin for right elbow cellulitis, and this morning he had trouble swallowing his medicines, and came into the hospital. He received one dose of Solu-Medrol and one dose of IVIG this morning. I suspect his worsening dysphagia is due to his myasthenia gravis, and the recent use of clindamycin may have exacerbated this. At this time, I would recommend the following : 1. I agree with changing antibiotics if possible. 2. To check forced vital capacities every day. 3. If discharge, he should follow up with his outpatient neurologist, Dr. Fields. 4. Continue Mestinon and prednisone and CellCept. 5. I am asking Speech Therapy to see the patient, and if his swallowing does not improve, he may need a feeding tube or even a PEG tube temporarily. 6. Depending on his clinical course, consideration could be given to another round of IVIG or even a round of IV steroids. Of note, I have spent 85 minutes on this case today. Over half that time was spent reviewing the chart and counseling the patient. Our team will follow with you. /[id number] MD REINA Vee/BRANDON / REINA / MODIsaiah /[id number] Electronically signed by Interface, [facility] Conversion Reconciliation Specialist Cerner at 02/01/2023 7:12 PM CDT documented in this encounter Plan of Treatment Not on file documented as of this encounter Visit Diagnoses Not on filedocumented in this encounter Care Teams Fire Sprinkler Service Technician Relationship Specialty Start Date End Date Mumtaz Larson MD [address] [facility] [address] [place] [id number] PCP - General Family Medicine 08/26/22 documented as of this encounter
--- OUTSIDE RECORDS SUMMARY | 2025-06-16 09:43 | XMS_ITS | Encounter Summary ---
Author Organization [employer] ([place], [place], [place], [place]) Address [address] [place] [address] Care Team Providers Care Drilling Foreman Name Role Phone Mumtaz Larson MD Primary Care Provider + [phone] Encounter Details Date Type Department Care Team (Late st Contact Info) Description 04/07/2022 Transcribed Document [facility] [place] Family Medicine [address] [place] [address] ProviderGabriel MD [address] [place] [address] Social History Tobacco Use Types Packs/Day Years [...] Date Macario rded Speak language other than [place] at home Not on file 10/29/2023 [...] Note - Historical Provider, - 04/07/2022 2:00 PM CDT Rapid Response Team Documentation Entered On: 04/07/2022 14:46 EDT Performed On: 04/07/2022 14:00 EDT by LILA DEAN NURSE PRACTITIONER EXEMPT Rapid Response Event Time Rapid Response Team Called : 04/07/2022 14:00 EDT Rapid Response Team Arrival Time : 04/07/2022 14:00 EDT Rapid Response Team Event End Time : 04/07/2022 14:44 EDT Rapid Response Event Intiated By : Hospital Staff Rapid Response Team Initiation Reason : Other: Corpak placement Rapid Response Event Location Type : Non Critical Care Rapid Response Team Initiation Reason Details : PICKER BOX OPERATOR notified about corpak placement for patient in room 559 Rapid Response Admission Diagnosis : No qualifying admission diagnosis Rapid Response Medical Background : Allergic rhinitis (Medical) Arthritis (Medical) Bronchitis (Medical) Diabetes mellitus type II (Medical) GERD - Gastro-esophageal reflux disease (Medical) Hard of hearing (Medical) High blood pressure (Medical) History of obstructive sleep apnea (Medical) Microscopic colitis (Medical) Prostate cancer (Medical) Rapid Response Allergies : Substance Category Reactions Severity No Known Medication Allergies Drug Rapid Response Recent Vital Signs : 04/07/2022 05:59 Systolic Blood Pressure 176 04/07/2022 05:59 Diastolic Blood Pressure 112 04/07/2022 05:59 Heart Rate Monitored 81 04/07/2022 05:45 Respiratory Rate 19 04/07/2022 05:59 Temperature, Fahrenheit 97.5 04/07/2022 12:43 Oxygen Saturation 97 Rapid Response Recent Lab Results : 04/07/2022 08:22 Sodium Level 138 (136-146) 04/07/2022 08:22 Potassium Level 3.6 (3.5-5.1) 04/07/2022 08:22 Calcium Level 9.0 (8.4-10.1) 04/06/2022 17:11 Magnesium Level 2.1 (1.5-2.4) 04/07/2022 07:45 eAVG Glucose NA 120 04/07/2022 10:40 Glucose POC2 90 (70-110) 04/07/2022 08:22 Chloride Level 103 (102-112) 04/07/2022 08:22 Carbon Dioxide Level 25 (21-32) 04/07/2022 08:22 Blood Urea Nitrogen 15 (7-22) 04/07/2022 08:22 Creatinine Level 0.70 (0.70-1.30) 04/07/2022 07:45 Hgb A1C NA 5.8 04/07/2022 07:45 Hgb 16.7 (13.5-17.3) 04/07/2022 07:45 Hct 50.7 (40.1-51.0) 04/07/2022 07:45 RBC 5.65 (4.20-5.70) 04/07/2022 07:45 WBC HI 11.3 (3.6-9.5) 04/07/2022 07:45 Platelet Count 362 (163-369) 04/07/2022 13:47 pH Art 7.44 (7.35-7.45) 04/07/2022 13:47 pCO2 Art 38.4 (35.0-45.0) 04/07/2022 13:47 pO2 Art LOW 78.8 (80.0-100.0) 04/07/2022 13:47 HCO3 Art 26.0 (20.0-26.0) 04/07/2022 13:47 BE Art 1.9 (-2.0-2.0) 04/07/2022 13:47 sO2 Art 96.9 (95.0-100.0) Weight/BMI : Clinical Weight/BMI CLINICALWEIGHT: 104.09 kg (04/06/22 15:40:00) Body Mass Index: 30.3 kg/m2 High (04/06/22 15:40:00) Code Status Pre Event : Full Code Code Status Post Event : Full Code Rapid Response Team Recommendation/Response : Corpak placed to Left nare, patient tolerated procedure well. KUB ordered for verification of placement. VSS at this time, will continue to monitor. Patient Condition at End of Event : No S/S of Acute Distress Patient Disposition Post Event : No change in location/level of care Rapid Response Drilling Foreman #1 : LILA DEAN APRN MCCLELLAN, KENDRA, NURSE PRACTITIONER EXEMPT - 04/07/2022 14:44 EDT Electronically signed by [facility] Conversion Sleeve Turner Cerner at 02/01/2023 7:04 PM CDT documented in this encounter Plan of Treatment Not on file documented as of this encounter Visit Diagnoses Not on filedocumented in this encounter Care Teams Drilling Foreman Relationship Specialty Start Date End Date Mumtaz Larson MD [address] [facility] [address] [place] [id number] PCP - General Family Medicine 08/26/22 documented as of this encounter
--- OUTSIDE RECORDS SUMMARY | 2025-06-16 09:43 | XMS_ITS | Encounter Summary ---
Author Organization [employer] ([place], [place], [place], [place]) Address [address] [place] [address] Care Team Providers Care Rfid Manager Name Role Phone Mumtaz Larson MD Primary Care Provider + [phone] Encounter Details Date Type Department Care Team (Late st Contact Info) Description 04/13/2022 Transcribed Document [facility] Pulm & Critical Care Medicine [address] [facility] [address] [facility] [address] [place] [id number] Teo Pimentel MD [address] [facility] [place] [address] Social History Tobacco Use Types Packs/Day Years [...] rded Speak language other than Citizen [place] at home Not on file 10/29/2023 Want [...] Conversion Note - Teo Pimentel MD - 04/13/2022 3:27 PM EDT Patient: TIEN GARCIA Age: 66 [...] tube feeds. No BM documented. VC 1.0L. ICU day: 6 PICC 04/09 Review of Systems Constitutional: No fever. Eye: No double vision. Ear/Nose/Mouth/Throat: No nasal congestion. Respiratory: Shortness of breath, No cough. Cardiovascular: No chest pain. Gastrointestinal: No nausea, No vomiting. Genitourinary: No hematuria. Hematology/Lymphatics: No bleeding tendency. Endocrine: No polyuria. Immunologic: Immunocompromised. Musculoskeletal: No neck pain. Integumentary: No abrasions. Neurologic: Alert and oriented X4. Psychiatric: Anxiety. Health Status Current medications: Medications (49) Active Scheduled: (20) #NaCl 0.9% [...] hrs) Last Charted Minimum Maximum Mon HR 110 (APR 13 12:48) 55 (APR 12 20:00) 115 (APR 13 10:43) Resp Rate 17 (APR 13 12:48) 17 (APR 12 15:00) H 39 (APR 13 08:49) SBP 114 (APR 13 11:00) 113 (APR 13 03:00) H 175 (APR 13 09:00) DBP 74 (APR 13 11:00) 74 (APR 13 03:00) H 108 (APR 13 09:00) MAP 88 (APR 13 11:00) 88 (APR 13 11:00) 136 (APR 13 09:00) SpO2 96 (APR 13 12:48) 94 (APR 12 21:00) 100 (APR 13 07:00) Intake & Output Totals Last 24 Hours (7a-7a) Intake (57 Events) Medications (990.92 mL) Enteral Feeding Amount (360 mL) Enteral Feeding Bolus Amount (120 mL) Output (6 Events) Varela Catheter (3210 mL) Input Total: 1470.92 mL Output Total: 3210 mL Balance: -1739.08 mL General: Alert and oriented, No acute distress, severe anxiety with transition to Optiflo, able to maintain O2 sats 98%. Eye: Pupils are equal, round and reactive to light, Normal conjunctiva, R eye ptosis. HENT: Normocephalic, Oral mucosa is moist. Neck: Supple, No lymphadenopathy. Respiratory: Dec bilateral bases, no rhonchi or wheezing. Cardiovascular: Normal rate, Regular rhythm, No edema. Gastrointestinal: Soft, Non-tender, Non-distended, Normal bowel sounds. Genitourinary: Support: Urinary catheter ( Indwelling ). Integumentary: Warm, Dry, Reeves. Neurologic: Alert, Oriented, Anxious when not on bipap . Psychiatric: severe anxiety with transition to Optiflo. Review / Management Results review: Labs (Last [...] (VERO 24) 1.1 (VERO 22) PTN 7.5 (APR 12) 6.8 (APR 11) 6.4 (APR 10) 7.7 (APR 08) ALB L 2.7 (APR 12) L 2.7 (APR 11) L 2.7 (APR 10) 3.7 (APR 08) . Blood Gases (Current Encounter/Past 24 Hours) No Blood Gas Results Found (Past 24 Hours) Radiology Results (Last 48 hours) [id number] -- 04/06/2022 15:42 CR Chest 1 Vw Portable (04/12/2022 07:15) Result: PORTABLE CHEST 04/12/2022 4:00 AMHISTORY: Shortness of airCOMPARISON: 1 day priorFINDINGS: The cardiac silhouette is mildly enlarged. The aorta isunfolded. A feeding tube is present coursing off the anterior margin ofthe film. The left-sided PICC line tip terminates in the SVC. Themediastinal and hilar structures are unremarkable. There is ucpjol-yx-bbvkhari left pleural effusion and left lower lobe [...] .390 04/12 VC 900mL 04/13 VC 1.0L Impression and Plan Pulmonary Acute Respiratory Failure, [...] to anxiety with increased work of breathing May use Optiflo Give Xanax 0.5mg X 1 Continue with mechanics (NIF and vital capacity) Q 8 H Keep HOB elevated Neuro following MRI pending (patient is currently unable to tolerate laying flat) Acetylcholine receptionist airline lounge studies pending On Mestinon 90mg TID Also receiving Solumedrol and IVIG day #5--Now Prednisone 60mg Daily and Completed IVIG Serax 10mg PO BID On Seroquel (home med)--400mg BiD Glycemic control: on correction insulin, target glucose 140-180 mg/dL Nutrition: TF via corpak (terminates in stomach),TF to 30ml/hr today Replace Potassium 60meq PO; Recheck level at 1400 Prophylaxis: Heparin and Pepcid At risk for respiratory complications CODE STATUS: FULL CODE Disposition: ICU 77 minutes critical care time excluding procedures. Discussed with CHRISTELLE and RN. documented in this encounter Plan of Treatment Not on file documented as of this encounter Visit Diagnoses Not on filedocumented in this encounter Care Teams Rfid Manager Relationship Specialty Start Date End Date Mumtaz Larson MD [address] [place] [facility] [address] [place] [id number] PCP - General Family Medicine 08/26/22 documented as of this encounter
--- OUTSIDE RECORDS SUMMARY | 2025-06-16 09:43 | XMS_ITS | Encounter Summary ---
Author Organization [employer] ([place], [place], [place], [place]) Address [address] [place] [address] Care Team Providers Care Cannon Pinion Adjuster Name Role Phone Mumtaz Larson MD Primary Care Provider + [phone] Encounter Details Date Type Department Care Team (Late st Contact Info) Description 04/07/2022 Transcribed Document [facility] [place] Family Medicine [address] [place] [address] ProviderGabriel MD [address] [place] [address] Social History Tobacco Use Types Packs/Day Years [...] Brant Conversion Note - Historical Provider, - 04/07/2022 10:32 AM CDT DIRECTOR MOTION PICTURE Note Entered On: 04/14/2022 11:27 EDT Performed On: 04/14/2022 11:27 EDT by HOUSTON MCNEIL SLP Pain Assessment Pain Scaled Used : 0-10 Pain scale Pain Score Pre-Intervention : 0 HOUSTON MCNEIL SLP - 04/14/2022 11:27 EDT Image 1 - Images currently included in the form version of this document have not been included in the text rendition version of the form. Dysphagia Exercise Technique PO Trials Dysphagia Exercise Technique PO Trial #1 PO Trial #2 PO Trial #3 PO Trial #4 Consistency Trialed : Thin [place] Pureed Regular solids Oral Symptoms : None observed None observed None observed None observed Pharyngeal Signs : Vocal quality change None observed None observed None observed, Other: c/o residue in pharynx HOUSTON MCNEIL SLP - 04/14/2022 12:37 EDT HOUSTON MCNEIL SLP - 04/14/2022 12:37 EDT HOUSTON MCNEIL SLP - 04/14/2022 12:37 EDT HOUSTON MCNEIL SLP - 04/14/2022 12:37 EDT Swallow Plan/Goals Swallow LTG Grid DIRECTOR MOTION PICTURE Shelter Goal #1 DIRECTOR MOTION PICTURE Shelter Goal #2 Swallow LTG : Improve swallowing function for oral intake Other: Pt goal: None stated Status : Progressing, continue HOUSTON MCNEIL SLP - 04/14/2022 12:37 EDT HOUSTON MCNEIL SLP - 04/14/2022 12:37 EDT Swallow Goals Grid Goal #1 Goal #2 Swallow STG : Other: Re-eval for return to PO Tolerate diet advancement (liquid or solids) Related To : Aspiration prevention, Penetration prevention Aspiration prevention, Penetration prevention Date to Meet : 04/08/2022 EDT 04/15/2022 EDT Status : Goal met Initial goal Date Met : 04/14/2022 EDT HOUSTON MCNEIL SLP - 04/14/2022 12:37 EDT HOUSTON MCNEIL SLP - 04/14/2022 12:37 EDT Subjective/Assessment/Plan DIRECTOR MOTION PICTURE Patient Concern : No c/o. Additional Objective Information : [id number] (15 minutes) DIRECTOR MOTION PICTURE Therapy/Treatment Asmt Cmnt : Pt seen for dysphagia re-eval. Now on nasal canula. No dysarthria or hypernasality appreciated. Ptosis is appreciated. Pt reports, overall, feeling much better and ready to eat. Intermittent wet vocal quality with thins via straw. Pt reports sensation of residue with solids. No overt oropharyngeal patterns with nectar or pudding. Pt appears safe to initate a puree/nectar diet. Ok for meds crushed in pudding. Ok for ice after oral care. Education provided re: safe swallowing strategies and pacing. Pt and express understanding. DIRECTOR MOTION PICTURE will continue to follow for diet advancement. DIRECTOR MOTION PICTURE Plan : Continue to follow for diet advancement. HOUSTON MCNEIL SLP - 04/14/2022 12:37 EDT Education Barriers To Learning : None evident Individuals Taught : Patient Readiness to Learn : Cooperative Readiness to Learn : Explanation HOUSTON MCNEIL SLP - 04/14/2022 12:37 EDT DIRECTOR MOTION PICTURE Education Assessment Grid 1 Diet Recommendation : Verbalizes understanding HOUSTON MCNEIL SLP - 04/14/2022 12:37 EDT DIRECTOR MOTION PICTURE Education Assessment Grid 2 Pacing : Verbalizes understanding Swallowing, Strategies : Verbalizes understanding HOUSTON MCNEIL SLP - 04/14/2022 12:[address] [facility] DIRECTOR MOTION PICTURE Charges Treatment-Swallowing : 1 HOUSTON MCNEIL SLP - 04/14/2022 12:37 EDT Anticipated Discharge Needs, DIRECTOR MOTION PICTURE Anticipated Discharge to : Home, independently Recommend Continued Therapy at Discharge : No HOUSTON MCNEIL SLP - 04/14/2022 12:37 EDT Electronically signed by Sherri [facility] Conversion Allied Health Teacher Cerner at 02/07/2023 1:08 PM CDT documented in this encounter Plan of Treatment Not on file documented as of this encounter Visit Diagnoses Not on filedocumented in this encounter Care Teams Cannon Pinion Adjuster Relationship Specialty Start Date End Date Mumtaz Larson MD [address] [place] [address] [place] [id number] PCP - General Family Medicine 08/26/22 documented as of this encounter
--- OUTSIDE RECORDS SUMMARY | 2025-06-16 09:43 | XMS_ITS | Encounter Summary ---
Author Organization [employer] ([place], [place], [place], [place]) Address [address] [place] [address] Care Team Providers Care Liquor Bridge Operator Helper Name Role Phone Mumtaz Larson MD Primary Care Provider + [phone] Encounter Details Date Type Department Care Team (Late st Contact Info) Description 04/07/2022 Transcribed Document [facility] [place] [address] [place] [address] ProviderGabriel MD [address] [place] [address] Social History Tobacco Use Types Packs/Day Years [...] Date Macario rded Speak language other than Argentine at home Not on file 10/29/2023 Want [...] Conversion Note - Historical Provider, - 04/07/2022 9:55 AM CDT Nutrition Assessment Entered On: 04/07/2022 13:04 EDT Performed On: 04/07/2022 13:03 EDT by Maryanne Moon Dietitian Nutrition Assessment Current Nutrition Regimen Comment : 04/07: c/s- EN recs. Pt is a 66 y/o male admitted from an OSH for neuro eval. He had c/o slurred speech and trouble swallowing. Pt was recently treated for acute viral meningitis. AVIATION MAINTENANCE INSTRUCTOR evaluated and recommended NPO status at this time. Plans for corpak placement today and will start EN. Brain MRI pending, but pt was unable to lay flat. Dx: possible myasthenia gravis, dysphagia PMH: bronchitis, DM, GERD, [place], HTN, prostate cancer Labs: reviewed- nutrition labs, lipid panel, HgbA1C are all WNL Meds: SSI, steroid, PRN Zofran, IVF Diet: NPO GI: LBM IC DESIGNER CUSTOM Skin: no breakdown noted Ht: 6'1 Wt: 235#/106.8kg (04/07) BMI: 31.1 IBW: 184#, 128% Est nutrient needs: 3259-5054 kcals (MSJ *1.2AF), 85-105g pro (0.8-1.0 g/kg) Maryanne Moon Dietitian - 04/07/2022 13:46 EDT Nutrition Assessment Reason : Consult, Nutrition support, Automatic referral Maryanne Moon Dietitian - 04/07/2022 13:03 EDT Nutrition Diagnoses Oral or Nutrition Support Intake : Inadequate oral intake Oral or Nutr Support Intake Related To : dysphagia Oral or Nutr Support Intake Evidenced by : NPO status, need for EN Oral or Nutrition Support Intake Status : Active Maryanne Moon Dietitian - 04/07/2022 13:46 EDT Nutrition Interventions Enteral/Parenteral Nutrition : Initiate enteral nutrition Maryanne Moon Dietitian - 04/07/2022 13:46 EDT Monitoring/Evaluation Enteral Nutrition Intake : Formula/Solution Weight Status : Weight Maintanence Gastrointestinal Function : Bowel Function Maryanne Moon Dietitian - 04/07/2022 13:46 EDT Nutrition Recommendations Dietitian Recommendations : 1. Place a post-pyloric corpak and initiate Glucerna 1.5 @ 20ml/hr. AAT to goal rate of 65ml/hr (2145 kcals, 118g pro). FW per MD. Goal: meet est needs 2. Advance diet per AVIATION MAINTENANCE INSTRUCTOR and MD + 60g CHO restriction. RD to assess for supplements Goal: tolerate PO diet advancement 3. Monitor weight 1-2x weekly Goal: prevent unintentional wt changes 4. Optimize glucose level and adjust insulin PRN Goal: glu 70-180 High nutrition risk Maryanne Moon Dietitian - 04/07/2022 13:46 EDT Electronically signed by Sherri [facility] Conversion Continuous Washer Operator Cerner at 02/01/2023 6:58 PM CDT documented in this encounter Plan of Treatment Not on file documented as of this encounter Visit Diagnoses Not on filedocumented in this encounter Care Teams Liquor Bridge Operator Helper Relationship Specialty Start Date End Date Mumtaz Larson MD [address] [place] [facility] [address] [place] [id number] PCP - General Family Medicine 08/26/22 documented as of this encounter
--- OUTSIDE RECORDS SUMMARY | 2025-06-16 09:43 | XMS_ITS | Encounter Summary ---
Author Organization [employer] ([place], [place], [place], [place]) Address [address] [place] [address] Care Team Providers Care Administrative Sales Assistant Name Role Phone Mumtaz Larson MD Primary Care Provider + [phone] Encounter Details Date Type Department Care Team (Late st Contact Info) Description 06/01/2022 Transcribed Document [facility] [place] [address] [place] [address] ProviderGabriel MD [address] [place] [address] Social History Tobacco Use Types Packs/Day Years [...] Conversion Note - Historical Provider, - 06/01/2022 1:31 PM CDT Admission History, Adult Entered On: 06/01/2022 20:41 EDT Performed On: 06/01/2022 13:31 EDT by Marie Billy NON EMP RN Advance Directive Patient has Advance Directive *Q : Yes, Advance Directive on file Advance Directive Type : Living will Copy Advance Directive Verified/on Chart : No Marie Billy NON EMP RN - 06/01/2022 20:38 EDT Anesthesia/Transfusion History Family History of Anesthesia Reaction : No prior transfusion(s) Transfusion History : Prior anesthesia without reaction Family History of Anesthesia Reaction : None Marie Billy NON EMP RN - 06/01/2022 20:38 EDT Functional Assessment Living Situation : Home JAVIER Hx Falls Immediate/Within 3 Months : No Current Home Treatments : None Marie Billy NON EMP RN - 06/01/2022 20:38 EDT General Info Preferred Name : King Mode of Arrival on Unit : Ambulatory Legal Guardian : Significant other Legal Guardian : No Support Person/Patient Filter Tip Catcher : Yes Support Person/Pt Rep Name : Clare Christine - Support Person/Pt Rep Contact Information : [phone] Want Family/Rep/Phys Notified of Admit : No Emergency Contact #1 : Clare King Emergency Contact #1 Emergency Contact #1 Relationship : Emergency Contact #2 : Na` Emergency Contact #2 Phone Number : NA Emergency Contact #2 Relationship : NA Chief Complaint : c/o increased difficulty swallowing over past 3 days. Hx of Myasthenia Gravis. Recently began taking clindamycin/bactrim. Information Obtained From : Patient Primary Language : Iranian Communication Barrier : None Single Corner Cutter Needed : Marie Carlin NON EMP RN - 06/01/2022 20:38 EDT Fall Risk Scales ABCs Fall Injury Risk Identification : Bones, Coagulation ABC Fall Injury Risk : Moderate to high injury risk JAVIER Hx Falls Immediate/Within 3 Months : No Javier Secondary Diagnosis : Yes JAVIER Use of Ambulatory Aid : None JAVIER IV Therapy or IV Access : Yes Javier Gait/Transferring : Normal, bedrest, immobile Javier Mental Status : Oriented to own ability Javier Fall Risk Score : 35 JAVIER Fall Scale Risk Level : 25-45 Medium Risk [place] Fall Interventions : Adequate lighting, Assistive devices within reach, Bed in low position, Call device within reach, Frequent orientation to call device, Frequent orientation to surroundings, Hourly comfort/safety rounds, Non-slip footwear, Personal items within reach, Reinforced to call for assistance before getting out of bed, Room free of clutter/spills, Upper side-rails up, Wheels locked, Wires/Cords secured Fall Moderate to High Risk Interventions : Patient room close to nurses station, Supervise toileting as indicated, Personal alarm on, Transport methods appropriate to patient, Toileting schedule, Visual cues in place, Wrist band (fall risk) on Fall Risk Scale Calc Temp : 0 Marie Billy NON EMP RN - 06/01/2022 20:38 EDT Health Histories Smoking Status : Former smoker, quit more than 30 days ago Smokeless Tobacco Status : Never Marie Billy NON EMP RN - 06/01/2022 20:38 EDT Social History (As Of: 06/01/2022 20:41:55 EDT) Tobacco: Former smoker, quit more than [...] 10:27:51 EST by Miguel Angel Calloway, Rn) Height and Weight, Clinical Dosing Height Source : Stated Height Entry Format : [place] Height, Feet : 6 ft(Converted to: 183 cm, 72 Inch) Height, Inches : 1 Inch(Converted to: 0 ft 1 Inch, 2.54 cm) Clinical Height : 185.42 cm Weight Source : Bed scale Weight Entry Format : [place] Clinical Dosing Weight : 93.18 kg Weight, Pounds : 205 lb Body Surface Area (BSA) : 2.18 m2 Body Mass Index : 27.1 kg/m2 (HI) [place] Body Weight : 79 kg Marie Billy NON EMP RN - 06/01/2022 20:38 EDT Infectious Disease History Does patient have symptoms of COVID-19? : No Tested for COVID19 in the past 14 days : No, Patient stated Does the Patient state known exposure to a COVID-19 positive case in the last 14 days? : No Patient Vaccinated for COVID-19 : Fully vaccinated Marie Billy NON EMP RN - 06/01/2022 20:38 EDT Infectious Disease Risk Screening Grid Cough < 2 wks of unknown origin : NO Cough > 2 weeks : NO Blood in Sputum : NO Fever or self-reported Fever : NO Rash of unknown origin : NO Headache : NO Stiff neck : NO Night Sweats : NO Unexplained Weight Loss : NO Diarrhea (3 episode per day) : NO Marie Billy NON EMP RN - 06/01/2022 20:38 EDT Physical contact outside [place] in the last 30 days : No Hospitalized in Foreign Country : No Infectious Disease History : None INF Disease TB Screening Calc : 0 INF Disease Recent Travel Calc : 0 Marie Billy NON EMP RN - 06/01/2022 20:38 EDT Influenza Vaccine Asmt, Adult Previous Vaccines from Immunization Schedule : No qualifying data available. Influenza Immunization, Current Season : Yes Marie Billy NON EMP RN - 06/01/2022 20:38 EDT Pneumococcal Vaccine Previous Vaccines from Immunization Schedule : No qualifying data available. Pneumonia Immunization Received : Yes Marie Billy NON EMP RN - 06/01/2022 20:38 EDT Order Details Transport Mode Order Detail : Ambulatory Order Detail : N/A IV Order Detail : 1 Oxygen Order Detail : 0 Nurse Collect Order Detail : 0 Lift/Transfer : Independent Central Line Order Detail : No Arterial Line : No Patient Needs Meds Crushed/Liquid : Yes Meds Administered Via Tube : No Marie Billy NON EMP RN - 06/01/2022 20:38 EDT Nutrition History Adaptive Feeding Equipment : Diabetic Eating Poorly Due to Decreased Appetite : Yes Unplanned Weight Loss in Past 3-6 Months : Yes Unplanned Weight Loss Amount : 33 lbs or more/15 kg or more Malnutrition Screening Tool Total(mal) : 5 Malnutrition Screening Tool Risk Level : Patient at risk Marie Billy NON EMP RN - 06/01/2022 20:38 EDT Page Suicide Severity Rating Scale (C-SSRS) CSSRS Past Month Wish to be : No CSSRS Past Month Suicidal Thoughts : No CSSRS Lifetime Suicide Behavior : No Suicide Severity Rating Score : 0 Suicide Severity Rating : No Additional Care Required at this time Marie Billy NON EMP RN - 06/01/2022 20:38 EDT Psychosocial History Currently in Unsafe Situation : No Marie Billy NON EMP RN - 06/01/2022 20:38 EDT Sleep Apnea Risk Assmt BiPAP/CPAP Ordered for Home Use : Yes Hx of Obstructive Sleep Apnea Diagnosis : Yes BiPAP/CPAP Used at Home : Yes Age over 50 Years Old : Yes Gender Male : Yes Marie Billy NON EMP RN - 06/01/2022 20:38 EDT Spiritual/Cultural Needs Any Spiritual/Cultural Needs or Requests : No Marie Billy NON EMP RN - 06/01/2022 20:38 EDT Valuables and Belongings Valuables and Belongings : Personal items Personal Items : Cell phone Personal Items Disposition : Bedside Marie Billy NON EMP RN - 06/01/2022 20:38 EDT documented in this encounter Plan of Treatment Not on file documented as of this encounter Visit Diagnoses Not on filedocumented in this encounter Care Teams Administrative Sales Assistant Relationship Specialty Start Date End Date Mumtaz Larson MD [address] [place] [facility] [address] [place] [phone] PCP - General Family Medicine 08/26/22 documented as of this encounter
--- OUTSIDE RECORDS SUMMARY | 2025-06-16 09:43 | XMS_ITS | Encounter Summary ---
Author Organization [employer] ([place], [place], [place], [place]) Address [address] [place] [address] Care Team Providers Care Attendance Officer Name Role Phone Mumtaz Larson MD Primary Care Provider + [phone] Encounter Details Date Type Department Care Team (Late st Contact Info) Description 06/01/2022 Transcribed Document [facility] [place] Family Medicine [address] [place] [address] ProviderGabriel MD [address] [place] [address] Social History Tobacco Use Types Packs/Day Years [...] Date Macario rded Speak language other than Iraqi at home Not on file 10/29/2023 Want [...] Conversion Note - Historical Provider, - 06/01/2022 3:56 PM CDT Meds to Bed Enrollment Entered On: 06/02/2022 9:55 EDT Performed On: 06/01/2022 15:56 EDT by Reggie Reynoso Hunting And Fishing Guide Cert Lead Meds to Bed Enrollment Patient Enrollment Decision: : Yes/enroll in meds to bed program Reggie Reynoso Hunting And Fishing Guide Cert Lead - 06/02/2022 9:55 EDT Electronically signed by Sherri [facility] Conversion Wet Pan Mixer Cerner at 02/01/2023 7:12 PM CDT documented in this encounter Plan of Treatment Not on file documented as of this encounter Visit Diagnoses Not on filedocumented in this encounter Care Teams Attendance Officer Relationship Specialty Start Date End Date Mumtaz Larson MD [address] [facility] [address] [place] [phone] PCP - General Family Medicine 08/26/22 documented as of this encounter
--- OUTSIDE RECORDS SUMMARY | 2025-06-16 09:43 | XMS_ITS | Encounter Summary ---
Author Organization [employer] ([place], [place], [place], [place]) Address [address] [place] [address] Care Team Providers Care Teaching Assistant Name Role Phone Mumtaz Larson MD Primary Care Provider + [phone] Encounter Details Date Type Department Care Team (Late st Contact Info) Description 06/01/2022 Transcribed Document [facility] [place] Family Medicine [address] [place] [address] ProviderGabriel MD [address] [place] [address] Social History Tobacco Use Types Packs/Day Years [...] Date Macario rded Speak language other than Armenian at home Not on file 10/29/2023 Want [...] Conversion Note - Historical Provider, - 06/01/2022 10:59 AM CDT ED Triage Entered On: 06/01/2022 11:12 EDT Performed On: 06/01/2022 11:09 EDT by Yesica Anguiano Rn ED Triage Across the Room Chief Complaint : c/o increased difficulty swallowing over past 3 days. Hx of Myasthenia Gravis. Recently began taking clindamycin/bactrim. Triage Date/Time : 06/01/2022 11:09 EDT Yesica Anguiano Rn - 06/01/2022 11:09 EDT DCP GENERIC CODE Tracking Acuity : 3 - Urgent Tracking Group : [facility] ED Yesica Anguiano Rn - 06/01/2022 11:09 EDT Mode of Arrival : Ambulatory Transported to ED by : Walk in To Room Via : Ambulate Accompanied By : Significant other ED Vital Signs : Document Height & Weight : Document ED Allergies : Document ED Reason for Visit : Document Tetanus Immunization : Unknown Yesica Anguiano Rn - 06/01/2022 11:09 EDT Infectious Disease History Does patient have symptoms of COVID-19? : No Tested for COVID19 in the past 14 days : No, Patient stated Does the Patient state known exposure to a COVID-19 positive case in the last 14 days? : No Patient Vaccinated for COVID-19 : Fully vaccinated Yesica Anguiano Rn - 06/01/2022 11:09 EDT Infectious Disease Risk Screening Grid Cough < 2 wks of unknown origin : NO Cough > 2 weeks : NO Blood in Sputum : NO Fever or self-reported Fever : NO Rash of unknown origin : NO Headache : NO Stiff neck : NO Night Sweats : NO Unexplained Weight Loss : NO Diarrhea (3 episode per day) : NO Yesica Anguiano Rn - 06/01/2022 11:09 EDT Physical contact outside [place] in the last 30 days : No Hospitalized in Foreign Country : No Infectious Disease History : None INF Disease TB Screening Calc : 0 INF Disease Recent Travel Calc : 0 Yesica Anguiano Rn - 06/01/2022 11:09 EDT Vital Signs ED Temperature Source : Temporal artery scanning Temperature Mode : Fahrenheit Temperature, Fahrenheit : 98.1 Deg F Clinical Temperature, C : 36.7 Deg C Oxygen Therapy Mode : Room air Peripheral Pulse Rate : 78 bpm Respiratory Rate : 18 Breaths/Min Systolic Blood Pressure : 93 mmHg Diastolic Blood Pressure : 65 mmHg Oxygen Saturation : 97 % Yesica Anguiano Rn - 06/01/2022 11:09 EDT Allergy (As Of: 06/01/2022 11:12:05 EDT) Allergies (Active) No Known Medication Allergies Estimated Onset Date: Unspecified ; Created By: Miguel Angel Calloway Rn; Reaction Status: Active ; Category: Drug ; Substance: No Known Medication Allergies ; Type: Allergy ; Updated By: Miguel Angel Calloway Rn; Reviewed Date: 06/01/2022 11:11 EDT Diagnosis Control ED (As Of: 06/01/2022 11:12:05 EDT) Problems(Active) Allergic rhinitis (SNOMED CT :931891551 ) Name of Problem: Allergic rhinitis ; Recorder: Miguel Angel Calloway Rn; Confirmation: Confirmed ; Classification: Medical ; Code: [id number] ; Contributor System: [employer]ware ; Last Updated: 09/27/2020 10:22 EST ; Life Cycle Date: 09/27/2020 ; Life Cycle Status: Active ; Vocabulary: SNOMED CT Arthritis (SNOMED CT :3769145 ) Name of Problem: Arthritis ; Recorder: Miguel Angel Calloway Rn; Confirmation: Confirmed ; Classification: Medical ; Code: 6634345 ; Contributor System: PowerChart ; Last Updated: 09/27/2020 10:25 EST ; Life Cycle Date: 09/27/2020 ; Life Cycle Status: Active ; Vocabulary: SNOMED CT Bronchitis (SNOMED CT :72766841 ) Name of Problem: Bronchitis ; Recorder: Miguel Angel Calloway Rn; Confirmation: Confirmed ; Classification: Medical ; Code: 34479726 ; Contributor System: BAE SystemsChart ; Last Updated: 09/27/2020 10:23 EST ; Life Cycle Date: 09/27/2020 ; Life Cycle Status: Active ; Vocabulary: SNOMED CT Diabetes mellitus type II (SNOMED CT :86748235 ) Name of Problem: Diabetes mellitus type II ; Recorder: Miguel Angel Calloway Rn; Confirmation: Confirmed ; Classification: Medical ; Code: 89036305 ; Contributor System: PowerChart ; Last Updated: 09/27/2020 10:25 EST ; Life Cycle Date: 09/27/2020 ; Life Cycle Status: Active ; Vocabulary: SNOMED CT GERD - Gastro-esophageal reflux disease (SNOMED CT :6385574424 ) Name of Problem: GERD - Gastro-esophageal reflux disease ; Recorder: Miguel Angel Calloway Rn; Confirmation: Confirmed ; Classification: Medical ; Code: [id number] ; Contributor System: PowerChart ; Last Updated: 09/27/2020 10:24 EST ; Life Cycle Date: 09/27/2020 ; Life Cycle Status: Active ; Vocabulary: SNOMED CT Hard of hearing (SNOMED CT :663255127 ) Name of Problem: Hard of hearing ; Recorder: Miguel Angel Calloway Rn; Confirmation: Confirmed ; Classification: Medical ; Code: 651131568 ; Contributor System: PowerChart ; Last Updated: 09/27/2020 10:23 EST ; Life Cycle Date: 09/27/2020 ; Life Cycle Status: Active ; Vocabulary: SNOMED CT High blood pressure (SNOMED CT :91028360 ) Name of Problem: High blood pressure ; Recorder: Miguel Angel Calloway Rn; Confirmation: Confirmed ; Classification: Medical ; Code: 77735488 ; Contributor System: PowerChart ; Last Updated: 09/27/2020 10:23 EST ; Life Cycle Date: 09/27/2020 ; Life Cycle Status: Active ; Vocabulary: SNOMED CT History of obstructive sleep apnea (IMO :56115446 ) Name of Problem: History of obstructive sleep apnea ; Recorder: SYSTEM, SYSTEM; Confirmation: Confirmed ; Classification: Medical ; Code: 46151465 ; Last Updated: 09/27/2020 10:32 EST ; Life Cycle Date: 09/27/2020 ; Life Cycle Status: Active ; Vocabulary: IMO Microscopic colitis (SNOMED CT :370753475 ) Name of Problem: Microscopic colitis ; Recorder: Miguel Angel Calloway Rn; Confirmation: Confirmed ; Classification: Medical ; Code: 412552244 ; Contributor System: PowerChart ; Last Updated: 09/27/2020 10:24 EST ; Life Cycle Date: 09/27/2020 ; Life Cycle Status: Active ; Vocabulary: SNOMED CT Prostate cancer (SNOMED CT :0586073093 ) Name of Problem: Prostate cancer ; Recorder: Miguel Angel Calloway Rn; Confirmation: Confirmed ; Classification: Medical ; Code: [id number] ; Contributor System: Socialware ; Last Updated: 09/27/2020 10:26 EST ; Life Cycle Date: 09/27/2020 ; Life Cycle Status: Active ; Vocabulary: SNOMED CT Diagnoses(Active) Difficulty swallowing Date: 06/01/2022 ; Diagnosis Type: Reason For Visit ; Confirmation: Complaint of ; Clinical Dx: Difficulty swallowing ; Classification: Medical ; Clinical Service: Non-Specified ; Code: PNED ; Probability: 0 ; Diagnosis Code: [id number] ED Height and Weight Height Source : Stated Height Entry Format : [place] Height, Feet : 6 ft(Converted to: 183 cm, 72 Inch) Height, Inches : 1 Inch(Converted to: 0 ft 1 Inch, 2.54 cm) Clinical Height : 185.42 cm Weight Source, ED : Critical estimated dosing weight Weight Entry Format : [place] Weight, Pounds : 205 lb Clinical Dosing Weight : 93.18 kg Body Surface Area (BSA) : 2.18 m2 Body Mass Index : 27.1 kg/m2 (HI) [place] Body Weight (IBW) : 78.88 kg Yesica Anguiano Rn - 06/01/2022 11:09 EDT documented in this encounter Plan of Treatment Not on file documented as of this encounter Visit Diagnoses Not on filedocumented in this encounter Care Teams Teaching Assistant Relationship Specialty Start Date End Date Mumtaz Larson MD [address] [place] [facility] [address] [place] [phone] PCP - General Family Medicine 08/26/22 documented as of this encounter
--- OUTSIDE RECORDS SUMMARY | 2025-06-16 09:43 | XMS_ITS | Encounter Summary ---
Author Organization [employer] ([place], [place], [place], [place]) Address [address] [place] [address] Care Team Providers Care Electrician'S Assistant Name Role Phone Mumtaz aLrson MD Primary Care Provider + [phone] Encounter Details Date Type Department Care Team (Late st Contact Info) Description 06/03/2022 Transcribed Document [facility] [place] Family Medicine [address] [place] [address] ProviderGabriel MD [address] [place] [address] Social History Tobacco Use Types Packs/Day Years [...] Date Macario rded Speak language other than Emirati at home Not on file 10/29/2023 Want [...] Conversion Note - Historical Provider, - 06/03/2022 10:35 AM CDT Patient Education Materials Follows: Electronically signed by Sherri [facility] Conversion Missionary Coordinator Cerner at 02/01/2023 7:04 PM CDT documented in this encounter Plan of Treatment Not on file documented as of this encounter Visit Diagnoses Not on filedocumented in this encounter Care Teams Electrician'S Assistant Relationship Specialty Start Date End Date Mumtaz Larson MD [address] [place] [address] [place] [address] PCP - General Family Medicine 08/26/22 documented as of this encounter
--- OUTSIDE RECORDS SUMMARY | 2025-06-16 09:43 | XMS_ITS | Encounter Summary ---
Author Organization [employer] ([place], [place], [place], [place]) Address [address] [place] [address] Care Team Providers Care Mortuary Beautician Name Role Phone Mumtaz Larson MD Primary Care Provider + [phone] Encounter Details Date Type Department Care Team (Late st Contact Info) Description 06/01/2022 Transcribed Document [facility] [place] Family Medicine [address] [place] [address] ProviderGabriel MD [address] [place] [address] Social History Tobacco Use Types Packs/Day Years [...] Date Macario rded Speak language other than Kazakh at home Not on file 10/29/2023 Want [...] Historical Provider, - 06/01/2022 10:59 AM CDT [place] Suicide Severity Rating Scale (C-SSRS) Entered On: 06/01/2022 13:24 EDT Performed On: 06/01/2022 13:22 EDT by Taylor Cordova RN [place] Suicide Severity Rating Scale (C-SSRS) CSSRS Past Month Wish to be : No CSSRS Past Month Suicidal Thoughts : No CSSRS Lifetime Suicide Behavior : No Suicide Severity Rating Score : 0 Suicide Severity Rating : No Additional Care Required at this time Taylor Cordova RN - 06/01/2022 13:22 EDT Electronically signed by Sherri [facility] Conversion Unix System Administrator Cerner at 02/01/2023 7:04 PM CDT documented in this encounter Plan of Treatment Not on file documented as of this encounter Visit Diagnoses Not on filedocumented in this encounter Care Teams Mortuary Beautician Relationship Specialty Start Date End Date Mumtaz Larson MD [address] [place] [id number] PCP - General Family Medicine 08/26/22 documented as of this encounter
--- OUTSIDE RECORDS SUMMARY | 2025-06-16 09:44 | XMS_ITS | Clinical Summary ---
Author Organization [facility] Address [address] [place] [address] Phone Care Team Providers Care Computer Engineering Technician Name Role Phone Oli Hylton MD [ ] Conditions or Problems Problem Name Problem Code Onset Date Status Entry Date Provider Comment Standard Description Annotate Chronic osteomyeliti s right elbow 731683374 (SNOMED CT) 01/28 Resolved 01/28 Ana Jose Chronic osteomyelitis of pelvis Chronic osteomyeliti s, right humerus/elbo w M86.621 (ICD-10-CM ) 02/24 Active 02/24 Ana Jose Other chronic osteomyelitis, right humerus Acute osteomyeliti s, right elbow 06943436 (SNOMED CT) 01/28 Resolved 01/28 Ana Jose Acute osteomyelitis of cranium Acute osteomyeliti s, right humerus/elbo w 658623002 (SNOMED CT) 02/24 Active 02/24 Ana Jose Acute osteomyelitis of humerus Acute osteomyeliti s, right elbow 14861268 (SNOMED CT) 01/28 Removed 01/28 Dina Edelen Acute osteomyelitis of cranium Chronic osteomyeliti s right elbow 824093929 (SNOMED CT) 01/28 Removed 01/28 Dina Edelen Chronic osteomyelitis of pelvis Cellulitis of right elbow L03.113 (ICD-10-CM ) 01/28 Active 01/28 Dina Edelen Cellulitis of right upper limb Diabetes mellitus type II 46915636 (SNOMED CT) 01/28 Active 01/28 Dina Edelen Type 2 diabetes mellitus Myasthenia gravis 70778707 (SNOMED CT) 01/28 Active 01/28 Dina Ruiz Myasthenia gravis Personal history of immunosuppre ssion therapy 330122088 (SNOMED CT) 01/28 Active 01/28 Dina Ruiz History of immunosuppressiv e therapy Medications Medication Instructions Start Date Stop Date Generic Name NDC Provider CEFTRIAXONE SODIUM 1 GM SOLR 2gm Q 24hrs HH [facility] Dose, labs, line care 03/16 ceftriaxone 91447399669 Rosemary Isbell CEPHALEXIN 500 MG CAPS Take 2 capsule by mouth twice a day 05/15 cephalexin 57063235646 Oli Hylton MD CEFTRIAXONE SODIUM 1 GM SOLR 2gm Q 24hrs HH [facility]/L[facility]C Dose, labs, line care 03/16 ceftriaxone 25847370888 Sheila Childs BUDESONIDE 3 MG CPEP three caps po daily budesonide 47431936573 Cailin Lilly OMEPRAZOLE 20 MG CPDR omeprazole 42439550663 Cailin Lilly ATENOLOL-CHLORTH ALIDONE 100-25 MG TABS 1/2 tab atenolol-chlorth al idone 90663691818 Cailin Lilly duloxetine 60 mg capsule, delayed rel sprinkle duloxetine Cailin Lilly CLINDAMYCIN HCL 300 MG CAPS clindamycin hcl 64374851230 Cailin Luther ang FIBERCON 625 MG TABS calcium polycarbophil 58813549422 Cailin Lilly OMEPRAZOLE 40 MG CPDR 01/29 omeprazole 56220217061 Silvia Werner PROMETHAZINE HCL 12.5 MG TABS promethazine 49292715416 Silvia Werner MYCOPHENOLATE MOFETIL 500 MG TABS mycophenolate mofetil 19664207885 Silvia Werner QUETIAPINE FUMARATE 200 MG TABS quetiapine 40478989832 Silvia Werner FENOFIBRATE 145 MG TABS fenofibrate nanocrystallized 32287769326 Silvia Werner ALLOPURINOL 300 MG TABS allopurinol 54968505130 Silvia Werner LEVOTHYROXINE SODIUM 50 MCG TABS levothyroxine 89279772424 Silvia Werner SULFAMETHOXAZOLE -TRIMETHOPRIM 800-160 MG TABS sulfamethoxazole -t rimethoprim 57522364256 Silvia Werner ONDANSETRON 4 MG TBDP ondansetron 46246236803 Silvia Werner BUSPIRONE HCL 10 MG TABS buspirone 82087202180 Silvia Werner POTASSIUM CHLORIDE AFSHAN ER 20 MEQ CR-TABS potassium chloride 94118067940 M angela Werner BUDESONIDE 3 MG CPEP 01/29 budesonide 84249163609 Silvia Werner NA SULFATE-K SULFATE-MG SULF 17.5-3.13-1.6 GM/177ML SOLN sodium,potassium ,m ag sulfates 17387257820 Silvia Werner Medications Administered No information available. Allergies, Adverse Reactions, Alerts No information available. Results Date Name Value Unit Range Flag Description Lab Report: CBC WITH AUTO DI FFERENTIAL IMMATUREGRAN 0.04 10*3/MM3 0.00-0.05 Immature granulocytes [#/volume] in Blood BASO# 0.04 10*3/mm3 0.00-0.20 Basophils [#/vol ume] in Blood EOS ABSLT 0.06 10*3/uL 0.00-0.40 Eosinophi ls [#/volume] in Blood MONOSCT AUTO 0.44 10*3/uL 0.10-0.90 Monocy dario [#/volume] in Blood by Automated count LYMPHCT AUTO 1.21 10*3/mm3 0.70-3.10 Lymph ocytes [#/volume] in Blood by Automated count ABS NEUTROPH 3.36 10*3/uL 1.70-7.00 Neutro phils [#/volume] in Blood IMM GRANU % 0.8 % 0.0-0.5 H Immature granulocytes/100 leukocytes in Blood % EOS AUTO 1.2 % 0.3-6.2 Eosinophil s/100 leukocytes in Blood by Automated count MONOCYTE % 8.5 % 5.0-12.0 Monocytes /100 leukocytes in Blood by Automated count LYMPHOCY BF 23.5 % 19.6-45.3 lymphoc ytes as percent of body fluid leukocytes NEUTROP BF 65.2 % 42.7-76.0 Neutroph ils/100 leukocytes in Body fluid Lab Report: C-REACTIVE PROTE IN CRP <0.30 mg/dL 0.00-0.50 C reactive protein [Mass/volume] in Serum or Plasma Lab Report: CBC (NO DIFF) PLATELETS 345 10*3/mm3 140-450 Platelets [#/volume] in Blood by Automated count ZZ-GE-unk 9.4 fL 6.0-12.0 GE use onl y - for [employer] import when terms are not otherwise specified RDW_ 13.7 12.3-15.4 RDW, no uni ts MCHC 31.7 G/DL 31.5-35.7 MCHC [Mass/ volume] by Automated count MCH 27.7 pg 26.6-33.0 MCH [Entiti c mass] by Automated count MCV 87.5 fL 79.0-97.0 MCV [Entiti c volume] by Automated count HCT 43.9 % 37.5-51.0 Hematocrit [Volume Fraction] of Blood by Automated count HGB 13.9 g/dL 13.0-17.7 Hemoglobin [Mass/volume] in Blood RBC 5.02 10*6/mm3 4.14-5.80 Erythrocyt es [#/volume] in Blood by Automated count WBC 5.79 10*3/mm3 3.40-10.8 0 Leukocytes [#/volume] in Blood by Automated count Lab Report: SEDIMENTATION RA TE ESR 12 mm/h 0-20 Erythrocyte sedimentation rate by Westergren method Lab Report: COMPREHENSIVE ME TABOLIC PANEL ANIONGAP 10.0 mmol/L 5.0-15.0 anion gap, serum BUN/CREAT 21.1 7.0-25.0 Urea nitrogen/Creatinine [Mass Ratio] in Serum or Plasma BILI TOTAL 0.4 mg/dL 0.0-1.2 Bilirubin. total [Mass/volume] in Serum or Plasma ALK PHOS 62 U/L 39-117 Alkaline alyssa sphatase [Enzymatic activity/volume] in Blood SGOT (AST) 18 U/L 1-40 Aspartate aminotransferase [Enzymatic activity/volume] in Serum or Plasma SGPT (ALT) 13 U/L 1-41 Alanine aminotransferase [Enzymatic activity/volume] in Serum or Plasma ALBUMIN 4.5 g/dL 3.5-5.2 Albumin [Mass/volume] in Serum or Plasma PROTEIN, TOT 6.6 g/dL 6.0-8.5 Protein [Mass/volume] in Serum or Plasma CALCIUM 9.3 mg/dL 8.6-10.5 Calcium [Moles/volume] in Serum or Plasma CO2 28.0 mmol/L 22.0-29.0 Carbon diox eileen, total [Moles/volume] in Venous blood CHLORIDE 105 mmol/L 98-107 Chloride [Moles/volume] in Serum or Plasma POTASSIUM 4.1 mmol/L 3.5-5.2 Potassium [Moles/volume] in Serum or Plasma SODIUM 143 mmol/L 136-145 Sodium [Moles/volume] in Serum or Plasma CREATININE 0.71 mg/dL 0.76-1.27 L Creatini ne [Mass/volume] in Serum or Plasma BUN 15 mg/dL 8-23 Urea nitrogen [Mass/volume] in Serum or Plasma GLUCOSE SER 104 mg/dL 65-99 H Glucose [Mass/volume] in Serum or Plasma Office Visit: Office Visit: 11 ORALTOBACUSE Never Tobacco smoking status SMOK STATUS Former smoker Tobacco smoking status MEDS REVIEW Done Documenta tion of current medications (procedure) Plan of Care Type Date Detail Pending order Sedimentation Ra te (ESR) Pending order C- reactive prot ein Pending order Discontinue IV a ntibiotics Pending order New Oral Antibio tic Pending order PICC Removal Pending order C- reactive prot ein Pending order Sedimentation Ra te (ESR) Pending order Continue IV anti biotics Pending order CMP Pending order CBC w/o Differen tial Pending order Sedimentation Ra te (ESR) Pending order Continue IV anti biotics Pending order Weekly PICC Line Care Pending order Weekly Labs (Con tinue) Pending order CMP Pending order CBC w/o Differen tial Pending order Sedimentation Ra te (ESR) Pending order Labs Pending order Continue IV anti biotics Pending order Weekly PICC Line Care Pending order Weekly Labs (Con tinue) Pending order CMP Pending order CBC w/o Differen tial Pending order Sedimentation Ra te (ESR) Pending order CBC with Differe ntial Pending order CMP Pending order Sedimentation Ra te (ESR) Pending order Sedimentation Ra te (ESR) Pending Order exclud ed from report: Pending order CMP Pending Order exclud ed from report: Pending order CBC with Differe ntial Pending Order exclud ed from report: Pending order STAT Labs Pending order STAT Labs Pending order STAT Labs Pending Order exclud ed from report: Pending order STAT Labs Pending Order exclud ed from report: Pending order STAT Labs Pending order Continue IV anti biotics Pending order Weekly PICC Line Care Pending order Weekly Labs (Con tinue) Pending order CMP Pending order CBC w/o Differen tial Pending order Sedimentation Ra te (ESR) Pending order STAT Labs Pending order CBC with Differe ntial Pending order Sedimentation Ra te (ESR) Pending order CMP Pending order CMP Pending order CBC w/o Differen tial Pending order Sedimentation Ra te (ESR) Pending order Continue IV anti biotics Pending order PICC Line Insert ion Pending order CMP Pending order CBC w/o Differen tial Pending order Sedimentation Ra te (ESR) Pending order PICC Line Insert ion Procedures Code Procedure Name Date Entry Date CPT-DC Discontinue IV antibiotics 2 CPT-araceli New Oral Antibiotic CPT-PICREM PICC Removal CPT-08591 C- reactive protein CPT-30583 Sedimentation Rate (ESR) 202 12/20/29 CPT-ca Continue IV antibiotics 2022 CPT-27119 CMP CPT-52203 CBC w/o Differential CPT-10016 Sedimentation Rate (ESR) 202 12/20/21 CPT-ca Continue IV antibiotics 2022 CPT-wpc Weekly PICC Line Care 03/01 CPT-cwl Weekly Labs (Continue) 03/01 CPT-89022 CMP CPT-60671 CBC w/o Differential CPT-51116 Sedimentation Rate (ESR) 202 12/20/14 CPT-labs Labs CPT-ca Continue IV antibiotics 2022 CPT-wpc Weekly PICC Line Care 02/23 CPT-cwl Weekly Labs (Continue) 02/23 CPT-82876 CMP CPT-87906 CBC w/o Differential CPT-06482 Sedimentation Rate (ESR) 202 12/20/08 CPT-41250 Sedimentation Rate (ESR) 202 12/21/07 CPT-11523 CMP [id number] CBC with Differential 2022 CPT-sl STAT Labs CPT-sl STAT Labs CPT-sl STAT Labs CPT-ca Continue IV antibiotics 2022 CPT-wpc Weekly PICC Line Care 02/16 CPT-cwl Weekly Labs (Continue) 02/16 CPT-20113 CMP CPT-09493 CBC w/o Differential CPT-39445 Sedimentation Rate (ESR) 202 12/20/01 CPT-sl STAT Labs [id number] CBC with Differential 2022 CPT-33206 Sedimentation Rate (ESR) 202 12/20/00 CPT-37877 CMP CPT-59997 CMP CPT-79674 CBC w/o Differential CPT-60621 Sedimentation Rate (ESR) 202 12/19/24 CPT-ca Continue IV antibiotics 2022 CPT-57075 PICC Line Insertion CPT-53621 CMP CPT-91627 CBC w/o Differential CPT-83202 Sedimentation Rate (ESR) 202 12/19/17 CPT-16966 PICC Line Insertion Vital Signs Date Name Value Unit Description BMI (Body Mass Index) 27.47 kg/m2 Bod y Mass Index (Ratio) Body Temperature 97.8 [degF] temperat ure E&M BP Diastolic 60 mm[Hg] blood pressu re, diastolic BP Systolic 110 mm[Hg] blood pressur e, systolic Heart Rate 56 /min pulse rate Height 73 [in_us] height E&M Respiratory Rate 16 /min respirat ory rate E&M Weight Measured 208.2 [lb_av] weight E& M Weight Measured 208.2 [lb_av] weight E& M Immunizations No information available. Advance Directives Directive Description Start Date HEALTH SURROGATE LIVING WILL ON FILE
--- OUTSIDE RECORDS SUMMARY | 2025-06-16 09:44 | XMS_ITS | Encounter Summary ---
Author Organization [employer] ([place], [place], [place], [place]) Address [address] [place] [address] Care Team Providers Care Timber Treating Tank Operator Name Role Phone Mumtaz Larson MD Primary Care Provider + [phone] Encounter Details Date Type Department Care Team (Late st Contact Info) Description 04/07/2022 Transcribed Document [facility] Family Medicine [address] [place] [address] ProviderGabriel MD [address] [place] [address] Social History Tobacco Use Types Packs/Day Years [...] Date Macario rded Speak language other than Somali at home Not on file 10/29/2023 Want [...] Conversion Note - Historical Provider, - 04/07/2022 11:43 AM CDT Patient: TIEN GARCIA Age: 66 years Sex: Male : 1955 Associated Diagnoses: None Author: BLAINE DRAPER MD Subjective Seen and examined this morning Unable to lay flat to order CT scan chest Corpak Started on pyridostigmine Family at bedside all questions answered Review of Systems Blurry vision Difficulty swallowing Shortness of breath No fever [...] 4 mg, IV Push, Q4H, PRN: Nausea glucagon: 1 mg, IntraMuscular, Q15Min, PRN: Other [...] IV Push, Q1H, PRN: Other (See Comment) pyridostigmine: 2 mg, IV Push, TID Documented [...] Cap, Oral, Daily, 0 Refill(s) Flonase: 1 [place], Nostrils Both, Daily, 0 Refill(s) MetFORMIN (Eqv-Glucophage [...] Tab, Oral, At Bedtime, 0 Refill(s), Medications (26) Active Scheduled: (9) #NaCl 0.9% *FLUSH* inj 10 mL 10 mL, IV Push, Q12H acetaminophen 325 mg tab 650 mg 2 Tab, Oral, Daily diphenhydrAMINE 50 mg/1 mL inj 25 mg 0.5 mL, IV Push, Daily immune globulin (Octagam) 40 Gram 400 mL, IV Piggyback, Daily insulin regular 1 unit/0.01 mL inj 3mL Scale A, SubCutaneous, Q6H methylPREDNISolone succinate 500 mg, IV Piggyback, BID pyridostigmine 5 mg/mL inj 2 mL 2 [...] list: Medical Allergic rhinitis / SNOMED CT 551816522 / Confirmed Hard of hearing / SNOMED CT 336137688 / Confirmed High blood pressure / SNOMED CT 98447204 / Confirmed Bronchitis / SNOMED CT 09417056 / Confirmed GERD - Gastro-esophageal reflux disease / SNOMED CT 7468513941 / Confirmed Microscopic colitis / SNOMED CT 679229747 / Confirmed Arthritis / SNOMED CT 6917928 / Confirmed Diabetes mellitus type II / SNOMED CT 70353031 / Confirmed Prostate cancer / SNOMED CT 3097205342 / Confirmed History of obstructive sleep apnea / IMO 95402226 / Confirmed, Active Problems (10) Allergic rhinitis Arthritis Bronchitis Diabetes mellitus type II GERD - Gastro-esophageal reflux disease Hard of hearing High blood pressure History of obstructive sleep apnea Microscopic colitis Prostate cancer Objective VS/Measurements Vitals Signs (last 24 hrs) Last Charted Minimum Maximum Temp 97.5 (APR 07 05:59) 97.5 (APR 07 05:59) 97.5 (APR 06 16:08) Mon HR 81 (APR 07 05:59) 74 (APR 06 16:08) 96 (APR 07 03:09) Resp Rate 19 (APR 07 05:45) 16 (APR 06 16:08) H 22 (APR 06 16:09) SBP H 176 (APR 07 05:59) H 150 (APR 06 20:27) H 176 (APR 07 05:59) DBP H 112 (APR 07 05:59) H 95 (APR 06 16:08) H 112 (APR 07 05:59) MAP 135 (APR 07 05:59) 115 (APR 06 20:27) 135 (APR 07 05:59) SpO2 L 92 (APR 07 05:59) L 90 (APR 06 16:08) 97 (APR 06 17:29) General: Alert and oriented, No acute distress. [...] mood & affect. Review / Management APR 07 08:22 138 103 15 / 105 3.6 25 0.70 \ APR 07 08:22 \ 16.7 / H 11.3 362 / 50.7 \ Radiology Results (Last 48 hours) [id number] -- 04/06/2022 15:42 CR Chest 1 Vw [...] review: Labs (Last four charted values) WBC H 11.3 (APR 07) H 15.6 (APR 06) HB 16.7 (APR 07) H 17.6 (MAR 20) HCT 50.7 (APR 07) H 52.3 (MAR 20) Plt 362 (APR 07) 329 (VERO 20) Na 138 (APR 07) 138 (APR 06) K 3.6 (APR 07) L 3.2 (APR 06) Cl 103 (APR 07) 102 (APR 06) CO2 25 (APR 07) 23 (APR 06) BUN 15 (APR 07) 13 (APR 06) Cr 0.70 (APR 07) 0.80 (APR 06) Glu R 105 (APR 07) H 127 (APR 06) Ca 9.0 (APR 07) 9.1 (APR 06) AST 26 (APR 06) ALT 31 (APR 06) ALK P 64 (APR 06) T Bili 0.7 (APR 06) PTN 8.0 (APR 06) ALB 4.4 (APR 06) . Impression and Plan #Possible Myxasthenia Gravis Neuro check Keep n.p.o. Speech evaluation labs noted started by Pyridostigmine monitor symptoms IV steroid Consulted neurology Ach receptor binding Ab ordered Monitor respiratory status, chest x-ray un remarkable CT chest to rule out thymoma if able to lay flat #Dysphagia Possibly secondary to myasthenia gravis versus stroke MRI brain when he can lay flat Keep n.p.o. Speech therapy Corpak placement #Dyspnea likely from myasthenia CXR noted Breathing treatment PRN At risk of worsening respiratory status consult pulmonary #Aspiration pneumonia IV Zosyn #Hypothyroidism Patient on levothyroxine at home Check TSH #Diabetes mellitus Sliding-scale insulin Monitor blood sugar #HTN Use IV hydralazine PRN Discussed with patient, family at bedside Discussed with neurology Discussed with Pulmonary Labs, imaging chart from outside hospital reviewed Time spent 33 minutes Disposition: Admitted for dysphagia blurry vision, second to myasthenia gravis, neurology following, started on pyridostigmine. CT chest and MRI brain when abale to lay flat, Aguilarak, PT./OT. IV steroid documented in this encounter Plan of Treatment Not on file documented as of this encounter Visit Diagnoses Not on filedocumented in this encounter Care Teams Timber Treating Tank Operator Relationship Specialty Start Date End Date Mumtaz Larson MD [address] [facility] [address] [place] [phone] PCP - General Family Medicine 08/26/22 documented as of this encounter
--- OUTSIDE RECORDS SUMMARY | 2025-06-16 09:44 | XMS_ITS | Encounter Summary ---
Author Organization [employer] ([place], [place], [place], [place]) Address [address] [place] [address] Care Team Providers Care Embedded Hardware Engineer Name Role Phone Mumtaz Larson MD Primary Care Provider + [phone] Encounter Details Date Type Department Care Team (Late st Contact Info) Description 04/13/2022 Transcribed Document [facility] Family Medicine [address] [place] [address] ProviderGabriel MD [address] [place] [address] Social History Tobacco Use Types Packs/Day Years [...] Date Macario rded Speak language other than Monegasque at home Not on file 10/29/2023 Want [...] Conversion Note - Historical Provider, - 04/13/2022 4:00 PM CDT UM Authorization Entered On: 04/13/2022 16:00 EDT Performed On: 04/13/2022 16:00 EDT by Jenise Hoover Rn-Utilization Review Primary Insurance Authorization Authorization and Policy Numbers : Insurance 1 Health Plan: [facility] MEDIC[facility] ADVANTAGE Policy Number: [id number] Authorization Number: Insurance Primary Name : [employer] MEDICARE ADVANTAGE - [id number] Authorization Status-Primary : Admit approved Reference Number-Primary : [id number] Number of Days Authorized-Primary : 5 Day(s) Authorized Service Begin Date-Primary : 04/06/2022 EDT Authorized Service End Date-Primary : 04/11/2022 EDT Authorization Comments-Primary : CLINICAL UPDATE FAXED VIA [employer] FOR 04/12-04/13 Historical Authorization Comments-Primary : Comment 1: Authorized per fax 04/08/22 @ 0856. Inpatient admission has been approved for this member. Next review due 04/12. -Amanda Kovacs (Kristen Rea, Reservoir Engineering Consultant 04/08/2022 12:37) Comment 2: CLINICALS FAXED VIA [employer] (04/06-04/07) (Temitope Laurent RN 04/07/2022 17:24) Comment 3: Reference number obtained per fax 04/06/22 @ 1645; request for initial clinical. -Amanda Chapman. (Kristen Rea, Reservoir Engineering Consultant 04/07/2022 08:07) Jenise Hoover Rn-Utilization Review - 04/13/2022 16:00 EDT Electronically signed by [facility] Conversion Dental Prosthetist Cerner at 02/01/2023 6:48 PM CDT documented in this encounter Plan of Treatment Not on file documented as of this encounter Visit Diagnoses Not on filedocumented in this encounter Care Teams Embedded Hardware Engineer Relationship Specialty Start Date End Date Mumtaz Larson MD [address] [place] [facility] [address] [place] [phone] PCP - General Family Medicine 08/26/22 documented as of this encounter
--- OUTSIDE RECORDS SUMMARY | 2025-06-16 09:44 | XMS_ITS | Encounter Summary ---
Author Organization [employer] ([place], [place], [place], [place]) Address [address] [place] [address] Care Team Providers Care Kitchen Utility Associate Name Role Phone Mumtaz Larson MD Primary Care Provider + [phone] Encounter Details Date Type Department Care Team (Late st Contact Info) Description 06/02/2022 Transcribed Document [facility] Family Medicine [address] [place] [address] ProviderGabriel MD [address] [place] [address] Social History Tobacco Use Types Packs/Day Years [...] Age: 66 Years Sex: Male : 1955 Subjective Date of Service: 06/02/2022 11:10:[address] Chavez bedside discussed w , Nimesh bedside R elbow improving afebrile Vital Signs T: 36.5 ??C TMIN: 36.3 ??C TMAX: 36.5 ??C HR: 53(Monitored) RR: 16 BP: 120/82 SpO2: 97% HT: 185.42 cm WT: 93.18 kg BMI: 27.1 Oxygen Settings (Last) Oxygen Therapy Mode: Room air (06/02/22 05:40:00) Intake & Output Totals Last 24 Hours (7a-7a) Input Total: 2406.47 mL Output Total: 0 mL Balance: 2406.47 mL Physical Exam General: [Alert and oriented, well nourished, no acute distress, bedside]. Neurologic: [Awake, alert, and oriented X3, CN II-XII intact, thickened speech]. Eye: [PERRL, EOMI, normal conjunctiva]. HENT: [Normocephalic, normal hearing, dry oral mucosa] Neck: [no JVD]. Lungs: [Clear to auscultation, non-labored respiration, ra, no distress]. Heart: [Normal rate, regular rhythm] Abdomen: [Soft, non-tender, non-distended]. Musculoskeletal: [R elbow with fluid filled, well circumscribed area over entire olecranon region, seems improved, less erythema--no streaking or surrounding erythema Skin: [no rashes]. Psychiatric: [Cooperative, appropriate mood and affect]. Assessment/Plan Myasthenia Gravis, with exacerbation -worsening dysphagia -neuro consult--discussed w Dr. Chavez -IVIG per neuro -discussed w team -GI consult for PEG, discussed with Deena BROWN (60-70 lb weight loss since March, need for nutrition, need for medications) -continue home cellcept, mestonin, prednisone--change to solumedrol 60 mg IV QD, change mestonin IV, cellcept per pharmacy R elbow cellulitis vs. hematoma vs. bursitis -per ortho, felt bursitis -ok to continue abx with immunocompromised, vanc and zosyn -US elbow pending -ortho consult--appreciate dr. rosas -add BC, procal/ lactic (NEG) -mri elbow, discussed w Dr. Rosas H/O Prostate cancer Hypothyroidism -Restart levothyroxine-will discuss w pharmacy Diabetes mellitus -Sliding-scale insulin -Monitor blood sugar HTN -continue home meds hx of Prolonged Qt -check and hold seroquel if QTc> 500. dvt ppx: lovenox full code discussed w , dr. chavez, deena [facility] time spent: 35 mins. dispo: IVIG, PEG tube. VTE Prophylaxis - Medical Enoxaparin 40 mg, SubCutaneous, Inj, [id number], Routine, Start 06/01/22 18:00:00 EDT, 06/01/22 17:01:00 EDT (ANNIKA JOHNS PA-C) Medications allopurinol, 300 mg= 1 Tab, Oral, [...] mL, IV Push, Q15Min, PRN Flonase, 1 [place], Nostrils Both, Daily glucagon, 1 mg= 1 mL, IntraMuscular, Q15Min, PRN glucose 4 g oral tablet, chewable, 16 Gram= 4 Tab, Chew, Q15Min, PRN glucose 40% oral gel, 15 Gram= 37.5 mL, Oral, Q15Min, PRN insulin regular sliding scale, Scale A, SubCutaneous, Q6H levothyroxine, 50 mcg= 1 Tab, Oral, Daily Lovenox, 40 mg= 0.4 mL, SubCutaneous, [id number] Mestinon, 60 mg= 5 mL, Oral, QID [...] Sodium Chloride 0.9% intravenous solution 100 mL Diagnostic Results Radiology Results (Last 48 hours) [id number] -- 06/01/2022 13:28 CR Elbow 2 Vws RT (06/01/2022 19:45) Result: FOUR-VIEW RIGHT ELBOW HISTORY: Infected elbow, swelling and redness.COMPARISON: None.FINDINGS: There is no apparent joint effusion. There is no fracture,dislocation or other acute abnormality of bone. A small well-corticatedossicle posterior to the olecranon is considered a normal variant.Significant soft tissue swelling is seen throughout the elbow,particularly posteriorly. IMPRESSION: No acute osseous abnormality. Soft tissue swelling.Images reviewed, interpreted, and dictated by Dr. Cristhian Ferrell.Transcribed by Heriberto Paiz.I have personally viewed, interpreted and dictated the examination. Ihave read and agree with the above final transcribed report. Lab Results Test Name Test Result Date/Time [...] Lymph # 1.34 x10(3)/uL 06/01/2022 11:48 EDT [place] % 6.2 % 06/01/2022 11:48 EDT [place] # 0.78 K/uL 06/01/2022 11:48 EDT Eos [...] ng/mL 06/01/2022 16:37 EDT Electronically signed by [facility], [facility] Conversion Workday Director Cerner at 02/01/2023 7:06 PM CDT documented in this encounter Plan of Treatment Not on file documented as of this encounter Visit Diagnoses Not on filedocumented in this encounter Care Teams Kitchen Utility Associate Relationship Specialty Start Date End Date Mumtaz Larson MD [address] [place] [facility] [address] [place] [id number] PCP - General Family Medicine 08/26/22 documented as of this encounter
--- OUTSIDE RECORDS SUMMARY | 2025-06-16 09:44 | XMS_ITS | Encounter Summary ---
Author Organization [facility] ([place], [place], [place], [place]) Address [address] [place] [address] Care Team Providers Care Sterile Process Tech Name Role Phone Mumtaz Larson MD Primary Care Provider + [phone] Encounter Details Date Type Department Care Team (Late st Contact Info) Description 04/07/2022 Transcribed Document [facility] [place] Family Medicine [address] [place] [address] ProviderGabriel MD [address] [place] [address] Social History Tobacco Use Types Packs/Day Years [...] Date Macario rded Speak language other than Spanish at home Not on file 10/29/2023 Want [...] Conversion Note - Historical Provider, - 04/07/2022 8:07 AM CDT UM Authorization Entered On: 04/07/2022 8:09 EDT Performed On: 04/07/2022 8:07 EDT by Kristen Rea, Senior Erp Consultant Primary Insurance Authorization Authorization and Policy Numbers : Insurance 1 Health Plan: [facility] MEDICARE ADVANTAGE Policy Number: [id number] Authorization Number: Insurance Primary Name : [employer] MEDICARE ADVANTAGE - [id number] Reference Number-Primary : [id number] Authorized Service Begin Date-Primary : 04/06/2022 EDT Authorization Comments-Primary : Reference number obtained per fax 04/06/22 @ 0044; request for initial clinical. -Amanda Chapman. Historical Authorization Comments-Primary : No Authorization Comments Found Kristen Rea, Senior Erp Consultant - 04/07/2022 8:07 EDT Electronically signed by Lizabeth Polanco Conversion [employer] Principal Cerner at 02/01/2023 6:46 PM CDT documented in this encounter Plan of Treatment Not on file documented as of this encounter Visit Diagnoses Not on filedocumented in this encounter Care Teams Sterile Process Tech Relationship Specialty Start Date End Date Mumtaz Larson MD [address] [facility] [address] [place] [id number] PCP - General Family Medicine 08/26/22 documented as of this encounter
--- OUTSIDE RECORDS SUMMARY | 2025-06-16 09:44 | XMS_ITS | Encounter Summary ---
Author Organization [employer] ([place], [place], [place], [place]) Address [address] [place] [address] Care Team Providers Care Service Desk Lead Name Role Phone Mumtaz Larson MD Primary Care Provider + [phone] Encounter Details Date Type Department Care Team (Late st Contact Info) Description 06/02/2022 Transcribed Document [facility] [place] Family Medicine [address] [place] [address] ProviderGabriel MD [address] [place] [address] Social History Tobacco Use Types Packs/Day Years [...] Date Macario rded Speak language other than Colombian at home Not on file 10/29/2023 Want [...] Conversion Note - Historical Provider, - 06/02/2022 11:18 AM CDT Nutrition Assessment Entered On: 06/02/2022 13:02 EDT Performed On: 06/02/2022 13:02 EDT by Maryanne Moon Dietitian Nutrition Assessment Current Nutrition Regimen Comment : 06/02: MST >2 (decreased appetite, >33# wt loss), c/s- EN recs. Pt is a 66 y/o male admitted for worsening dysphagia x 3 days as well as R-elbow pain. He has a hx of myasthenia gravis and it is noted that pt's dysphagia seemed to have worsened after recently starting abx. PAPER INSERTER evaluated pt this morning and recommended to continue NPO status. It is noted that pt has had significant wt loss in the last few months, so GI was consulted for PEG placement which will be placed today. RD attempted visit, but pt was off the floor. His was sitting at the bedside and reported that pt has lost 60# since having meningitis in February and his UBW is around 265# (23% wt loss x 3 months- significant). RD explained how pt's PEG works with EN and pt's did not have any nutrition education questions at this time. Will further assess PCM on follow up when physical assessment can be completed. Dx: exacerbation of myasthenia gravis, worsening dysphagia, R-elbow bursitis PMH: DM, GERD, [place], HTN, colitis, prostate cancer, myasthenia gravis Labs: Na 134, Glu 111, FSB/172/103 Meds: Os-alek + D, Vit D, SSI, synthroid, SSI, PPI, K bicarb, abx, IVF Diet: NPO GI: +BS, LBM 05/31 Skin: No breakdown Ht: 6'1 Wt: 205#/93.2kg (06/01) BMI: 27.1 IBW: 184#, 111% Est nutrient needs: 7680-8069 kcals (MSJ*1.2AF), 90-110g pro (1.0-1.2 g/kg) Maryanne Moon Dietitian - 06/02/2022 14:39 EDT Nutrition Assessment Reason : Consult, Nutrition support, Automatic referral Maryanne Moon Dietitian - 06/02/2022 13:02 EDT Nutrition Diagnoses Functional : Altered GI function Functional Related to : dysphagia Functional As Evidenced by : NPO status, need for EN Functional Diagnoses Status : Active Weight : Unintended weight loss Weight Related to : dysphagia, myasthenia gravis Weight As Evidenced by : Family reported 60# wt loss x 3 months Weight Status : Active Maryanne Moon Dietitian - 06/02/2022 14:39 EDT Nutrition Interventions Meals and Snacks Other Comment : NPO Enteral/Parenteral Nutrition : Initiate enteral nutrition Maryanne Moon Dietitian - 06/02/2022 14:39 EDT Monitoring/Evaluation Enteral Nutrition Intake : Tube Feeding Tolerance Weight Status : Weight Maintanence Gastrointestinal Function : Bowel Function Maryanne Moon Dietitian - 06/02/2022 14:39 EDT Nutrition Recommendations Dietitian Recommendations : 1. Once feasible, initiate Glucerna 1.5 @ 20ml/hr. Advance slowly to goal of 65ml/hr (2145 kcals, 118g pro). FW per MD. Goal: meet est needs 2. Advance diet as tolerated per PAPER INSERTER and MD + 60g CHO restriction. RD to assess for supplements Goal: tolerate PO diet advancement 3. Monitor weight 1-2x weekly Goal: prevent further unintentional wt changes 4. Monitor elytes and replace PRN. Pt may have an increased risk for refeeding syndrome Goal: elytes WNL 5. Optimize glucose and adjust insulin PRN Goal: Glu 70-180 High nutrition risk Maryanne Moon Dietitian - 06/02/2022 14:39 EDT documented in this encounter Plan of Treatment Not on file documented as of this encounter Visit Diagnoses Not on filedocumented in this encounter Care Teams Service Desk Lead Relationship Specialty Start Date End Date Mumtaz Larson MD [address] [place] [facility] [address] [place] [phone] PCP - General Family Medicine 08/26/22 documented as of this encounter
--- OUTSIDE RECORDS SUMMARY | 2025-06-16 09:44 | XMS_ITS | Encounter Summary ---
Author Organization [facility] ([place], [place], [place], [place]) Address [address] [place] [address] Care Team Providers Care Outside Machinist Name Role Phone Mumtaz Larson MD Primary Care Provider + [phone] Encounter Details Date Type Department Care Team (Late st Contact Info) Description 06/02/2022 Transcribed Document [facility] [place] Medicine [address] [place] [address] ProviderGabriel MD [address] [place] [address] Social History Tobacco Use Types Packs/Day Years [...] Conversion Note - Historical ProviderMD - 06/02/2022 2:00 AM CDT Ballast Inspector Details Entered On: 06/02/2022 1:56 EDT Performed On: 06/02/2022 2:00 EDT by Marie Billy NON EMP RN Order Details Transport Mode Order Detail : Ambulatory Order Detail : N/A IV Order Detail : 1 Oxygen Order Detail : 0 Nurse Collect Order Detail : 0 Lift/Transfer : Independent Central Line Order Detail : No Arterial Line : No Patient Needs Meds Crushed/Liquid : Yes Meds Administered Via Tube : No Marie Billy NON EMP RN - 06/02/2022 1:56 EDT Electronically signed by [facility] Conversion Tray Worker Cerner at 02/01/2023 7:07 PM CDT documented in this encounter Plan of Treatment Not on file documented as of this encounter Visit Diagnoses Not on filedocumented in this encounter Care Teams Outside Machinist Relationship Specialty Start Date End Date Mumtaz Larson MD [address] [place] [facility] [address] [place] [phone] PCP - General Family Medicine 08/26/22 documented as of this encounter
--- OUTSIDE RECORDS SUMMARY | 2025-06-16 09:44 | XMS_ITS | Encounter Summary ---
Author Organization [employer] ([place], [place], [place], [place]) Address [address] [place] [address] Care Team Providers Care Planner Internship Name Role Phone Mumtaz Larson MD Primary Care Provider + [phone] Encounter Details Date Type Department Care Team (Late st Contact Info) Description 06/02/2022 Transcribed Document [facility] [place] Family Medicine [address] [place] [address] ProviderGabriel MD [address] [place] [address] Social History Tobacco Use Types Packs/Day Years [...] Date Macario rded Speak language other than Portuguese at home Not on file 10/29/2023 Want [...] Conversion Note - Historical Provider, - 06/02/2022 1:11 PM CDT UM Authorization Entered On: 06/02/2022 13:12 EDT Performed On: 06/02/2022 13:11 EDT by ROSEMARIE ARMANDO, KARLA Primary Insurance Authorization Authorization and Policy Numbers : Insurance 1 Health Plan: [facility] MEDICARE ADVANTAGE Policy Number: [id number] Authorization Number: Insurance Primary Name : [employer] MEDICARE ADVANTAGE - [id number] Reference Number-Primary : [id number] Authorized Service Begin Date-Primary : 06/01/2022 EDT Historical Authorization Comments-Primary : Comment 1: Reference number obtained from fax 06/01/22 @ 1554 - Request for clinical. -Amanda Chapman RN. (Kristen Rea, Cereal Miller 06/02/2022 08:29) ROSEMARIE ARMANDO, KARLA - 06/02/2022 13:11 EDT Electronically signed by Sehrri [facility] Conversion Operations Superintendent Cerner at 02/01/2023 7:04 PM CDT documented in this encounter Plan of Treatment Not on file documented as of this encounter Visit Diagnoses Not on filedocumented in this encounter Care Teams Planner Internship Relationship Specialty Start Date End Date Mumtaz Larson MD [address] [facility] [address] [place] [phone] PCP - General Family Medicine 08/26/22 documented as of this encounter
--- OUTSIDE RECORDS SUMMARY | 2025-06-16 09:44 | XMS_ITS | Encounter Summary ---
Author Organization [employer] ([place], [place], [place], [place]) Address [address] [place] [address] Care Team Providers Care Senior Bioinformatics Specialist Name Role Phone Mary Larson MD Primary Care Provider + [phone] Encounter Details Date Type Department Care Team (Late st Contact Info) Description 06/02/2022 Transcribed Document [facility] [place] Family Medicine [address] [place] [address] ProviderGabriel MD [address] [place] [address] Social History Tobacco Use Types Packs/Day Years [...] Date Macario rded Speak language other than Grenadian at home Not on file 10/29/2023 Want [...] as of this encounter Miscellaneous Notes * Zahraner Conversion Note - Historical Provider, - 06/02/2022 8:08 AM CDT Patient: TIEN GARCIA Age: 66 Years Sex: Male : 1955 Chief Complaint c/o increased difficulty swallowing over past 3 days. Hx of Myasthenia Gravis. Recently began taking clindamycin/bactrim. Reason for Consultation Right elbow swelling History of Present Illness Mr. Garcia is a 66-year-old male with myasthenia gravis on CellCept with 1 week of right elbow pain and swelling. No known injury. The elbow is slowly improving and pain. No swelling is also improving. No worsening. No fever or chills. He is able to range it. No distal swelling. No loss of use of his hand. No numbness or tingling. Review of Systems No fever or chills No chest pain or shortness of breath No calf pain or swelling Vital Signs T: 36.5 ??C TMIN: 36.3 ??C TMAX: 36.7 ??C HR: 53(Monitored) RR: 16 BP: 120/82 SpO2: 97% HT: 185.42 cm WT: 93.18 kg BMI: 27.1 Oxygen Settings (Last) Oxygen Therapy Mode: Room air (06/02/22 05:40:00) Physical Exam NAD AAOx3, Slow speech Mood/affect appropriate Breathing comfortably on RA Right elbow with full range of motion. Focal swelling over the olecranon bursa. Erythema. No erythema in the surrounding soft tissue. Minimal tenderness to palpation of the olecranon and bursa. Distally neurovascular intact. Assessment/Plan Improving right olecranon bursitis in the setting of immunocompromise. This more likely represents an aseptic bursitis as it is improving without surgical intervention. Okay to continue antibiotics given his immunocompromisation. Recommend icing, gentle compression (difficult due to IV in the antecubital fossa), and avoidance of direct pressure. Continue monitoring, but no surgical intervention at this time recommended. Cellulitis Difficulty swallowing, Difficulty swallowing Myasthenia gravis with exacerbation VTE Prophylaxis - Medical Enoxaparin 40 mg, SubCutaneous, Inj, [id number], Routine, Start 06/01/22 18:00:00 EDT, 06/01/22 17:01:00 EDT (ANNIKA JOHNS PA-C) Provider Information Primary Care Physician - MARY LARSON (REF), -SANDY Attending Physician - RAFA ALEXANDER DO-INT Admitting Physician - RAFA ALEXANDER DO-INT Consulting Physician - PILLO CORNELL MD-TEETEE - MG exacerbation, dysphagia Consulting Physician - PILLO GAINES MD-ORT - R elbow Referring Physician - PHY, SELF REFERRED Problem [...] (10/02/2020), MONITOR PERIPHERAL NERVOUS ELECTR ACTIVITY, INTRAOP, ASSEMBLER TRUCK TRAILER (10/02/2020), RESECTION OF LUMBAR VERTEBRAL DISC, OPEN [...] mL, IV Push, Q15Min, PRN Flonase, 1 [place], Nostrils Both, Daily glucagon, 1 mg= 1 mL, IntraMuscular, Q15Min, PRN glucose 4 g oral tablet, chewable, 16 Gram= 4 Tab, Chew, Q15Min, PRN glucose 40% oral gel, 15 Gram= 37.5 mL, Oral, Q15Min, PRN insulin regular sliding scale, Scale A, SubCutaneous, Q6H levothyroxine, 50 mcg= 1 Tab, Oral, Daily Lovenox, 40 mg= 0.4 mL, SubCutaneous, [id number] Mestinon, 60 mg= 5 mL, Oral, QID [...] mg= 2 Cap, Oral, Daily Flonase, 1 [place], Nostrils Both, Daily levothyroxine 50 mcg (0.05 mg) oral tablet, 50 mcg= 1 Tab, Oral, Daily MetFORMIN (Eqv-Glucophage XR) 500 mg oral tablet, extended release, 500 mg= 1 Tab, Oral, Daily mycophenolate mofetil 500 mg oral tablet, 500 mg= 1 Tab, Oral, BID Potassium Chloride (Bhh-Rbay-Ich M20) 20 mEq oral tablet, extended release, [...] Last Used: quit in the 80s . Diagnostic Results Left elbow radiographs on my read are normal with soft tissue swelling over the olecranon. Lab Results Test Name Test Result Date/Time Sodium Level 131 mmol/L (Low) 06/01/2022 11:48 EDT Potassium Level 3.2 mmol/L (Low) 06/01/2022 11:48 EDT Chloride Level 101 mmol/L (Low) 06/01/2022 11:48 EDT Carbon Dioxide Level 20 mmol/L (Low) 06/01/2022 11:48 EDT Anion Gap 13 06/01/2022 11:48 EDT Glucose Level 109 mg/dL (High) 06/01/2022 11:48 EDT Blood Urea Nitrogen 14 mg/dL 06/01/2022 11:48 EDT Creatinine Level 0.80 mg/dL 06/01/2022 11:48 EDT eGFR >60 mL/min/1.73m2 06/01/2022 11:48 EDT eGFR NonAfrican >60 mL/min/1.73m2 06/01/2022 11:48 EDT Bun/Creatinine 17.5 06/01/2022 11:48 EDT Calcium Level 9.1 mg/dL 06/01/2022 11:48 [...] Level 1.4 mmol/L 06/01/2022 11:48 EDT WBC 12.5 K/uL (High) 06/01/2022 11:48 EDT RBC 5.62 Million/uL 06/01/2022 11:48 EDT Hgb 16.5 g/dL 06/01/2022 11:48 EDT Hct 48.4 % 06/01/2022 11:48 EDT MCV 86.1 fL 06/01/2022 11:48 EDT MCH 29.4 pg 06/01/2022 11:48 EDT MCHC 34.1 Gram/dL 06/01/2022 11:48 EDT Platelet Count 406 K/uL (High) 06/01/2022 11:48 EDT MPV 9.6 fL 06/01/2022 11:48 EDT RDW 13.4 % 06/01/2022 11:48 EDT Neut % 81.9 % (High) 06/01/2022 11:48 EDT Neut # 10.26 K/uL (High) 06/01/2022 11:48 EDT Lymph % 10.7 % (Low) 06/01/2022 11:48 EDT Lymph # 1.34 x10(3)/uL 06/01/2022 11:48 EDT Dickens % 6.2 % 06/01/2022 11:48 EDT Dickens # 0.78 K/uL 06/01/2022 11:48 EDT Eos % 0.6 % 06/01/2022 11:48 EDT Eos # 0.08 x10(3)/uL 06/01/2022 11:48 EDT Baso % 0.2 % 06/01/2022 11:48 EDT Baso # 0.03 x10(3)/uL 06/01/2022 11:48 EDT Slide Review No 06/01/2022 11:48 EDT IG# 0.05 x10(3)/uL 06/01/2022 11:48 EDT IG% 0.40 % 06/01/2022 11:48 EDT Procalcitonin <0.25 ng/mL 06/01/2022 16:37 EDT Electronically signed by [facility] Conversion Cloth Hand Cerner at 02/01/2023 7:12 PM CDT documented in this encounter Plan of Treatment Not on file documented as of this encounter Visit Diagnoses Not on filedocumented in this encounter Care Teams Senior Bioinformatics Specialist Relationship Specialty Start Date End Date Mary Larson MD [facility] [address] [place] [phone] PCP - General Family Medicine 08/26/22 documented as of this encounter
--- OUTSIDE RECORDS SUMMARY | 2025-06-16 09:44 | XMS_ITS | Encounter Summary ---
Author Organization [employer] ([place], [place], [place], [place]) Address [address] [place] [address] Care Team Providers Care Product Expert Name Role Phone Mumtaz Larson MD Primary Care Provider + [phone] Encounter Details Date Type Department Care Team (Late st Contact Info) Description 06/03/2022 Transcribed Document [facility] [place] Family Medicine [address] [place] [address] ProviderGabriel MD [address] [place] [address] Social History Tobacco Use Types Packs/Day Years [...] Brant Conversion Note - Historical Provider, - 06/03/2022 1:46 PM CDT Patient: TIEN GARCIA Age: 66 Years Sex: Male : 1955 Subjective Date of Service: 06/03/2022 seen, no family bedside states speech and swallow seem some better elbow improving Vital Signs T: 36.5 ??C TMIN: 36.3 ??C TMAX: 36.9 ??C HR: 65(Monitored) RR: 16 BP: 127/76 SpO2: 96% HT: 185.42 cm WT: 91.05 kg BMI: 26.48 Oxygen Settings (Last) Oxygen Therapy Mode: Room air (06/03/22 09:56:00) Intake & Output Totals Last 24 Hours (7a-7a) Input Total: 1603.91 mL Output Total: 0 mL Balance: 1603.91 mL Physical Exam General: [Alert and oriented, well nourished, no acute distress]. Neurologic: [Awake, alert, and oriented X3]. Eye: [normal conjunctiva]. HENT: [Normocephalic, normal hearing] Neck: [no JVD]. Lungs: [Clear to auscultation, non-labored respiration, ra]. Abdomen: [Soft, non-tender, non-distended, PEG]. Musculoskeletal: [R elbow with improving fluid filled, well circumscribed area over olecranon region, seems improved Skin: [no rashes]. Psychiatric: [Cooperative, appropriate mood and affect]. Assessment/Plan Myasthenia Gravis, with exacerbation -worsening dysphagia -neuro consult--discussed w Dr. Mccullough -IVIG per neuro -ST following -sp PEG 06/03 -meds and LESLIE reviewed R elbow bursitis -per ortho, felt bursitis -ok to continue abx with immunocompromised, vanc and zosyn -US elbow noted, mri ordered but pt will not tolerate -ortho consult--appreciate dr. Rosas -add BC, procal/ lactic (NEG) H/O Prostate cancer Hypothyroidism -levothyroxine Diabetes mellitus -Sliding-scale insulin -Monitor blood sugar HTN -continue home meds hx of Prolonged Qt -WNL dvt ppx: lovenox full code time spent: 30 mins. dispo: IVIG, TF, likely home tomorrow with ST and TF per CM which we discussed. VTE Prophylaxis - Medical Enoxaparin 40 mg, SubCutaneous, Inj, [id number], Routine, Start 06/01/22 18:00:00 EDT, 06/01/22 17:01:00 [...] mL, IV Push, Q15Min, PRN Flonase, 1 [place], Nostrils Both, Daily glucagon, 1 mg= 1 [...] injectable solution, 0.5 mL, IntraDermal, 1-Time, PRN Lovenox, 40 mg= 0.4 mL, SubCutaneous, [id number] Mestinon, 60 mg= 5 mL, Oral, QID mycophenolate mofetil, 500 mg= 2 Cap, Oral, BID Normal Saline 1,000 mL, 1000 mL, IntraVENous Os-Viral 500 + D, 1 Tab, Oral, BID potassium bicarbonate, 20 mEq= 1 Tab, Oral, BID pramipexole, 0.25 mg= 1 Tab, Oral, At Bedtime predniSONE, 50 mg= 1 Tab, Oral, Daily Protonix IV, 40 mg, IV Push, Daily QUEtiapine, 50 mg= 2 Tab, Oral, BID TriCor 145 mg oral tablet, 145 mg= 1 Tab, Oral, Daily vancomycin, 1 Each, IV Piggyback, Weekly Zosyn + Sodium Chloride 0.9% intravenous solution 100 mL Diagnostic Results US Up Ext Nonvas Comp (06/02/2022 10:05) Result: ULTRASOUND OF THE SOFT TISSUES OF THE RIGHT ELBOWHISTORY: Right elbow swelling and redness.PROCEDURE: Limited sonographic images of the soft tissues of the rightelbow were obtained.FINDINGS: There is a heterogeneous complex mass measuring 47 x 36 mm,this may represent a hematoma, abscess or neoplasm.IMPRESSION: Heterogeneous complex mass as above may represent hematoma,abscess or neoplasm. CT or MRI recommended for further evaluation. Lab Results Test Name Test Result Date/Time Device Comment 1 Notified Nurse RBV 06/03/2022 11:29 EDT Device Comment 1 Notified Nurse RBV 06/03/2022 06:42 EDT Device Comment 1 Notified Nurse RBV 06/03/2022 00:14 EDT Device Comment 1 Notified Nurse RBV 06/02/2022 16:08 EDT Glucose POC2 99 mg/dL 06/03/2022 11:29 EDT Glucose POC2 124 mg/dL (High) 06/03/2022 06:42 EDT Glucose POC2 124 mg/dL (High) 06/03/2022 00:14 EDT Glucose POC2 90 mg/dL 06/02/2022 16:08 EDT Vancomycin Trough 47.2 mcg/mL (Critical) 06/03/2022 04:37 EDT documented in this encounter Plan of Treatment Not on file documented as of this encounter Visit Diagnoses Not on filedocumented in this encounter Care Teams Product Expert Relationship Specialty Start Date End Date Mumtaz Larson MD [address] [place] [facility] [address] [place] [phone] PCP - General Family Medicine 08/26/22 documented as of this encounter
--- OUTSIDE RECORDS SUMMARY | 2025-06-16 09:44 | XMS_ITS | Encounter Summary ---
Author Organization [employer] ([place], [place], [place], [place]) Address [address] [place] [address] Care Team Providers Care Coin Machine Collector Name Role Phone Mumtaz Larson MD Primary Care Provider + [phone] Encounter Details Date Type Department Care Team (Late st Contact Info) Description 06/03/2022 Transcribed Document [facility] Family Medicine [address] [place] [address] ProviderGabriel MD [address] [place] [address] Social History Tobacco Use Types Packs/Day Years [...] Conversion Note - Historical Provider, - 06/03/2022 4:06 PM CDT Patient: TIEN GARCIA Age: 66 years Sex: Male : 1955 Associated Diagnoses: None Author: Pooja Buckner, Resident Pharmacist HPI: [id number] M with H myasthenia gravis presents to [facility] ED with complaints of R elbow tenderness, erythema, and pain without trauma. Pt saw his PCP and was prescribed Bactrim and clindamycin. Pt states dysphagia has worsened since the onset of elbow infection. Consult: Vancomycin Indication: Cellulitis Goal Level: 12-20 mcg/mL Consulting MD: Lori Almeida PA-C ID: Current Antibiotics: Vancomycin PTD Zosyn 3.375gm q6h TBW: 93.18kg (BMI 27) Estimated CrCl: 91 mL/min/m2 Vitals Signs (last 24 hrs) Last Charted Minimum Maximum Temp 97.4 (JUN 03 14:47) 97.4 (JUN 03 14:47) 97.7 (JUN 02 18:07) Mon HR 75 (JUN 03 14:47) 54 (JUN 02 18:07) 75 (JUN 03 14:47) Resp Rate 16 (JUN 03 14:47) 14 (JUN 02 17:40) 16 (JUN 02 20:33) SBP 124 (JUN 03 14:47) 106 (JUN 02 16:20) 127 (JUN 03 01:39) DBP 81 (JUN 03 14:47) 73 (JUN 02 16:20) 83 (JUN 03 05:42) MAP 93 (JUN 03 14:47) 85 (JUN 02 16:20) 98 (JUN 03 01:39) SpO2 97 (JUN 03 14:47) L 93 (JUN 02 22:00) 98 (JUN 02 20:33) Labs (Last four charted values) WBC H 10.3 (JUN 02) H 12.5 (JUN 01) HB 15.7 (JUN 02) 16.5 (JUN 01) HCT 46.3 (JUN 02) 48.4 (JUN 01) Plt H 390 (JUN 02) H 406 (JUN 01) Na L 134 (JUN 02) L 131 (JUN 01) K 3.9 (JUN 02) L 3.2 (JUN 01) Cl L 101 (JUN 02) L 101 (JUN 01) CO2 27 (JUN 02) L 20 (JUN 01) BUN 13 (JUN 02) 14 (JUN 01) Cr 0.80 (JUN 02) 0.80 (JUN 01) Glu R H 111 (JUN 02) H 109 (JUN 01) Ca 9.0 (JUN 02) 9.1 (JUN 01) Lactic 1.4 (JUN 01) AST 18 (JUN 01) ALT 25 (JUN 01) ALK P 58 (JUN 01) T Bili 0.8 (JUN 01) PTN 7.1 (JUN 01) ALB L 3.3 (JUN 01) Intake & Output Totals Last 24 Hours (7a-7a) Input Total: 1603.91 mL Output Total: 0 mL Balance: 1603.91 mL Microbiology: Blood Cx x2 - pending Vancomycin Levels: 06/03 0400 peak = 47.2 mcg/mL 06/03 1500 trough = 15.5 mcg/mL A/P: 1) Vancomycin level was drawn at 0437 while vancomycin was infusing and resulted at 47.2 mcg/mL. This is more clearance representative of a peak level. A repeat trough level ~11hrs after this mornings dose was within goal at 15.5 mcg/mL. This patient was on a 1250mg (13 mg/kg) vancomycin q12h. Will continue this regimen. SCr stable. 2) Will order a trough on 06/06 at 0400. Goal trough 12-20 mcg/mL. Hold dose if level >20 mcg/mL. 3) Other medications are adjusted appropriately at this time. Will monitor for changes and make adjustments as necessary. Rx will follow, Pooja Buckner PharmD Regional Sales Trainer #[phone] Electronically signed by Sherri [facility] Conversion Knitter Helper Cerner at 02/01/2023 6:57 PM CDT documented in this encounter Plan of Treatment Not on file documented as of this encounter Visit Diagnoses Not on filedocumented in this encounter Care Teams Coin Machine Collector Relationship Specialty Start Date End Date Mumtaz Larson MD [address] [facility] [address] [place] [address] PCP - General Family Medicine 08/26/22 documented as of this encounter
--- OUTSIDE RECORDS SUMMARY | 2025-06-16 09:44 | XMS_ITS | Encounter Summary ---
Author Organization [employer] ([place], [place], [place], [place]) Address [address] [place] [address] Care Team Providers Care Program Management Analyst Name Role Phone Mumtaz Larson MD Primary Care Provider + [phone] Encounter Details Date Type Department Care Team (Late st Contact Info) Description 06/02/2022 Transcribed Document [facility] Family Medicine [address] [place] [address] ProviderGabriel MD [address] [place] [address] Social History Tobacco Use Types Packs/Day Years [...] Date Macario rded Speak language other than Slovenian at home Not on file 10/29/2023 Want [...] Historical Provider, - 06/02/2022 2:42 PM CDT [facility] Endo IntraOp Summary Primary Physician: ROCAEL FINLEY MD Finalized Date/Time: 06/02/22 14:56:07 Pt. Name: TIEN GARCIA Wilmer /Sex: 1955 Male Med Rec #: [id number] Physician: RAFA ALEXANDER DO-INT Financial #: [id number] Pt. Type: I Room/Bed: [facility] Admit/Disch: 06/01/22 13:28:00 - Institution: [facility] Endo - Case Attendance Entry 1 Entry 2 Entry 3 Case Attendee ROCAEL FINLEY MD Cabbab, Jerald, TA Brown RN Role Performed Surgeon/Proceduralist, Sales Operations, First Sales Operations, Second First Time In 06/02/22 14:38:00 06/02/22 14:32:00 06/02/22 14:32:00 Time Out 06/02/22 14:57:00 06/02/22 14:57:00 06/02/22 14:57:00 Procedure EGD w Peg Tube EGD w Peg Tube EGD w Peg Tube Placement, Gastric Placement, Gastric Placement, Gastric Biopsy Biopsy Biopsy Other Attendee Superficial Wound Closed By: Last Modified By: Slick Brunner, Slick Fabian, Slick Fabian, Hanh 06/02/22 14:55:02 06/02/22 14:55:02 06/02/22 14:55:02 Entry 4 Entry 5 Entry 6 Case Attendee Aguilar Alvarez RHYNE, HEATHER, MD-BRADLY TAVERA, NAYLA HELP DESK TECHNICIAN Role Performed Scrub, First Anesthesiologist of FAMILY SERVICE WORKER/Nurse Brim Cutter Record Time In 06/02/22 14:32:00 06/02/22 14:32:00 06/02/22 14:32:00 Time Out 06/02/22 14:57:00 06/02/22 14:57:00 06/02/22 14:57:00 Procedure EGD w Peg Tube EGD w Peg Tube EGD w Peg Tube Placement, Gastric Placement, Gastric Placement, Gastric Biopsy Biopsy Biopsy Other Attendee Superficial Wound Closed By: Last Modified By: Slick Brunner, Slick Fabian, Slick Fabian Rn 06/02/22 14:55:02 06/02/22 14:55:02 06/02/22 14:55:02 [facility] End[facility] - Case Attendance Audit 06/02/22 14:55:02 Stull Hewer: [id number] Modifier: [id number] <+> Time Out 1 <*> Procedure EGD w Peg Tube Placement, Gastric Biopsy 2 <+> Time Out 2 <*> Procedure EGD w Peg Tube Placement, Gastric Biopsy 3 <+> Time Out 3 <*> Procedure EGD w Peg Tube Placement, Gastric Biopsy 4 <+> Time Out 4 <*> Procedure EGD w Peg Tube Placement, Gastric Biopsy 5 <+> Time Out 5 <*> Procedure EGD w Peg Tube Placement, Gastric Biopsy 6 <+> Time Out 6 <*> Procedure EGD w Peg Tube Placement, Gastric Biopsy 06/02/22 14:44:32 Stull Hewer: [id number] Modifier: [id number] 1 <*> Procedure EGD w Peg Tube Placement 2 <+> Time In 2 <*> Procedure EGD w Peg Tube Placement 3 <+> Time In 3 <*> Procedure EGD w Peg Tube Placement 4 <+> Time In 4 <*> Procedure EGD w Peg Tube Placement 5 <+> Time In 5 <*> Procedure EGD w Peg Tube Placement 6 <+> Time In 6 <*> Procedure EGD w Peg Tube Placement 06/02/22 14:39:30 Stull Hewer: [id number] Modifier: [id number] 1 <+> Time In 1 <*> Procedure EGD w Peg Tube Placement <+> 2 Case Attendee <+> 2 Role Performed <+> 2 Procedure <+> 3 Case Attendee <+> 3 Role Performed <+> 3 Procedure <+> 4 Case Attendee <+> 4 Role Performed <+> 4 Procedure <+> 5 Case Attendee <+> 5 Role Performed <+> 5 Procedure <+> 6 Case Attendee <+> 6 Role Performed <+> 6 Procedure [facility] End[facility] - Case times Entry 1 Patient In Room Time 06/02/22 14:32:00 Out Room Time 06/02/22 14:57:00 Anesthesia Start Time 06/02/22 14:32:00 Stop Time 06/02/22 14:57:00 Surgery / Procedure Times Start Time 06/02/22 14:42:00 Stop Time 06/02/22 14:54:00 Last Modified By: Slick Brunner Rn 06/02/22 14:54:45 [facility] End[facility] - Case times Audit 06/02/22 14:54:45 Stull Hewer: [id number] Modifier: [id number] 1 <+> Out Room Time 1 <+> Stop Time 1 <*> Stop Time 06/02/22 14:51:00 06/02/22 14:48:26 Stull Hewer: [id number] Modifier: [id number] <+> 1 Stop Time 06/02/22 14:42:05 Stull Hewer: [id number] Modifier: [id number] <+> 1 Start Time 06/02/22 14:38:17 Stull Hewer: [id number] Modifier: [id number] <+> 1 Start Time [facility] Endo - Cultures and Spec Summary Entry 1 Cultrures and Specimens Specimen Ordered: Yes Test(s) Routine/Path-Lab Requested/Final Disposition Last Modified By: Slick Brunner Rn 06/02/22 14:47:50 [facility] End[facility] - Delays Entry 1 Delay Reason Other, No Delay Duration 0 Minute(s) Last Modified By: Slick Brunner Rn 06/02/22 14:39:49 [facility] Endo - Departure from OR Entry 1 Integumentary Assessment Integumentary WDL Assessment WDL Transfer/Handoff Transfer to PACU Phase I Handoff Method Bedside/Face to face Post-op Transport Stretcher/Gurney Via Patient Transport Slick Brunner Rn, Accompanied by BRADLY WARD CRNA Last Modified By: Slick Brunner Rn 06/02/22 14:39:54 [facility] End[facility] - Endoscopy Details Entry 1 Abdomen Procedure Soft, Non-Tender Assessment Procedure Abdomen 06/02/22 14:39:00 Assessment D/T Radio Frequency Ablation Abdominal Pressure Last Modified By: Slick Brunner Rn 06/02/22 14:40:00 [facility] Endo - Fire Risk Assessment Entry 1 Fire Info Surgical Site or 1- Yes Incision Above the Xyphoid Open O2 Source 1- Yes (Mask or Cannula) Available Ignition 1- Yes (ESU, Laser, Light Source) Fire Risk 3 Assessment Score Fire Score Fire Risk Yes Assessment Complete Fire Risk Slick Brunner Rn Assessment Verified By Fire Risk 06/02/22 14:39:00 Assessment Verified Date/Time Fire Risk High Risk Protocol Yes Implemented Standard Fire Yes Safety Precautions Followed Last Modified By: Slick Brunner Rn 06/02/22 14:40:06 [facility] Endo - General Case Web Site Developer 1 Case Information OR Endo 03 [facility] Case Level 1 Room Verified Yes Wound Class No Incision Specialty Gastroenterology Anesthesia Type General ASA Class 3 Diagnosis Preop Diagnosis Failure to Thrive Postop Same As Preop Yes Postop Diagnosis Failure to Thrive Wound Class Definitions Last Modified By: Slick Brunner Rn 06/02/22 14:41:48 [facility] Endo - General Case Data Audit 06/02/22 14:41:48 Stull Hewer: [id number] Modifier: [id number] <+> 1 Room Verified [facility] End[facility] - Implant Log Entry 1 Implant Log Implant CATH KT AMPULE PEG PULL Identification [id number] Description Implant Quantity 1 Implant [id number] Identification Lot Number Implant Mina Sci:Endo Identification Diesel Tractor Engine Mechanic Name: Implant [id number] Identification Catalog Number Implant Expiration 02/15/24 Date Tissue Implant Last Modified By: Slick Brunner Rn 06/02/22 14:47:12 [facility] Endo - Intraoperative Assessment Entry 1 Valid History / Yes Physical in Chart Preoperative Yes Checklist Reviewed/Evaluated Patient is Latex No Sensitive Level of WDL Consciousness (WDL = Alert, Oriented to Person, Place, and Time) Last Modified By: Slick Brunner Rn 06/02/22 14:40:50 [facility] Endo - Intraoperative Equipment Entry 1 Equipment Intraop Monitoring Electrocardiogram Three lead placement (ECG) Electrode Placement Blood Pressure Arm, left upper Location Pulse Oximeter Hand, right Probe Site Antiembolic Devices Scopes Flexible Endoscopes Gastroscope Used Scope Serial F Number/Identificatio n Number Photo/Video Documentation Photo Yes Video No Last Modified By: Slick Brunner Rn 06/02/22 14:41:01 [facility] End[facility] - Patient Positioning Entry 1 Procedure EGD w Peg Tube Placement, Gastric Biopsy Body Position Supine Left Arm Position Resting at side Right Arm Position Resting at side Left Leg Position Uncrossed, parallel Right Leg Position Uncrossed, parallel Feet Uncrossed Yes Pressure Points Yes Checked Positioned By Slick Brunner Rn Position Verified Positioning Yes Verified by Surgeon Last Modified By: Slick Brunner Rn 06/02/22 14:44:33 [facility] - Patient Positioning Audit 06/02/22 14:44:33 Stull Hewer: [id number] Modifier: [id number] 1 <*> Procedure EGD w Peg Tube Placement [facility] End[facility] - Sign In Entry 1 Patient, Site, Yes Procedure Identified Surgical Consent Yes Confirmed Surgical Site N/A Marked by person performing procedure Airway Hypothermia Risk No Warming Measures No Taken Last Modified By: Slick Brunner Rn 06/02/22 14:41:19 [facility] End[facility] - Sign Out Entry 1 RN Confirmation Surgical Yes Procedure(s) Identified Instrument, Sponge N/A and Sharps Counts Correct/Documented Equipment Problems N/A Documented Specimen Labeled Yes Correctly Urinary Catheter N/A Documented in IView Wound Yes classification reviewed, verified and updated post case in both the General Case Data and Procedure segments Safety Checklist Yes Elements Complete? RN Sign Out Slick Brunner Rn Signature RN Sign Out 06/02/22 14:57:00 Signature Date/Time Plan of Care Outcome - [...] of Care Outcome - Xray/Images OUTCOME STATEMENT: N/A Absence of observable signs or symptoms of radiation injury Plan of Care Outcome - Counts OUTCOME STATEMENT: N/A Absence of signs and symptoms of injury related to extraneous objects Last Modified By: Slick Brunner Rn 06/02/22 14:55:01 [facility] - Sign Out Audit 06/02/22 14:55:01 Stull Hewer: [id number] Modifier: [id number] <+> 1 RN Sign Out Signature Date/Time <+> 1 Wound classification reviewed, verified and updated post case in both the General Case Data and Procedure segments [facility] - Surgical Procedures Entry 1 Entry 2 Procedure EGD w Peg Tube Placement Gastric Biopsy Modifiers Additional Procedure Description Primary Procedure Yes No Primary Surgeon ROCAEL FINLEY MD ASLAM, BILAL, MD Start 06/02/22 14:42:00 06/02/22 14:42:00 Stop 06/02/22 14:54:00 06/02/22 14:51:00 Physician States Cecum Reached Anesthesia Type [facility] [place] Gastroenterology Gastroenterology Wound Class 1 - Clean No Incision Last Modified By: Slick Brunner, Slick Fabian Rn 06/02/22 14:54:32 06/02/22 14:48:34 [facility] Endo - Surgical Procedures Audit 06/02/22 14:54:32 Stull Hewer: [id number] Modifier: [id number] 1 <*> Procedure EGD w Peg Tube Placement 1 <*> Stop 06/02/22 14:51:00 1 <*> Wound Class No Incision 06/02/22 14:48:34 Stull Hewer: [id number] Modifier: [id number] <+> 1 Stop <+> 2 Stop 06/02/22 14:47:44 Stull Hewer: [id number] Modifier: [id number] 1 <*> Procedure EGD w Peg Tube Placement 1 <+> Specialty 1 <+> Wound Class 2 <*> Procedure Gastric Biopsy 2 <+> Specialty 2 <+> Wound Class 06/02/22 14:44:31 Stull Hewer: [id number] Modifier: [id number] <+> 2 Procedure <+> 2 Primary Procedure <+> 2 Primary Surgeon <+> 2 Start <+> 2 Anesthesia Type 06/02/22 14:42:38 Stull Hewer: [id number] Modifier: [id number] <+> 1 Start [facility] End[facility] - Time Out Entry 1 Procedure to be EGD w Peg Tube Performed Placement, Gastric Biopsy Time Out Time Out Pause Time 06/02/22 14:39:00 All activity Yes suspended (unless life threatening emergency) Team Verbally Correct patient Confirms Information identity, Consent form is present and accurate, Agreement on the procedure to be done, Correct patient position, Relevant images/results properly labeled/appropriately displayed, Reconcile problems if responses among team members differ Antibiotic N/A Prophylaxis Administered Or In Progress Within the Last 60 Minutes Beta Galdino N/A Administered Venous N/A Thromboembolism Prophylaxis Required Anticipated Critical Events Surgeon None expected Last Modified By: Slick Brunner Rn 06/02/22 14:44:33 [facility] End[facility] - Time Out Audit 06/02/22 14:44:33 Stull Hewer: [id number] Modifier: [id number] 1 <*> Procedure to be Performed EGD w Peg Tube Placement Case Comments <None> Finalized By: Slick Brunner, Rn Document Signatures Signed By: Slick Brunner Rn 06/02/22 14:56 Electronically signed by Sherri [facility] Conversion Power Lineworker Cerner at 02/01/2023 7:03 PM CDT documented in this encounter Plan of Treatment Not on file documented as of this encounter Visit Diagnoses Not on filedocumented in this encounter Care Teams Program Management Analyst Relationship Specialty Start Date End Date Mumtaz Larson MD [address] [facility] [address] [place] [address] PCP - General Family Medicine 08/26/22 documented as of this encounter
--- OUTSIDE RECORDS SUMMARY | 2025-06-16 09:44 | XMS_ITS | Encounter Summary ---
Author Organization [employer] ([place], [place], [place], [place]) Address [address] [place] [address] Care Team Providers Care Vacuum Frame Operator Name Role Phone Mumtaz Larson MD Primary Care Provider + [phone] Encounter Details Date Type Department Care Team (Late st Contact Info) Description 04/07/[address] [facility] Family Medicine [address] [place] [address] ProviderGabriel MD [address] [place] [address] Social History Tobacco Use Types Packs/Day Years [...] Historical Provider, - 04/07/2022 10:33 AM CDT WIRE SPRING RELAY ADJUSTER Therapy Screen Entered On: 04/07/2022 10:34 EDT Performed On: 04/07/2022 10:33 EDT by HOUSTON MCNEIL SLP Therapy Screen Medical Chart Reviewed, WIRE SPRING RELAY ADJUSTER : Yes Information Obtained From, WIRE SPRING RELAY ADJUSTER : Family, Patient Therapy Screen Completed, WIRE SPRING RELAY ADJUSTER : Yes Recommendations for Evaluation WIRE SPRING RELAY ADJUSTER : None Therapy Screen Comment, WIRE SPRING RELAY ADJUSTER : Neurology evaluation is pending. Neurology MD with concern for likely MG. +Moderate dysarthria. No Communication evaluation indicated at this time. HOUSTON MCNEIL, [place] - 04/07/2022 10:33 EDT Electronically signed by Sherri [facility] Conversion Wooden Frame Builder Cerner at 02/01/2023 6:49 PM CDT documented in this encounter Plan of Treatment Not on file documented as of this encounter Visit Diagnoses Not on filedocumented in this encounter Care Teams Vacuum Frame Operator Relationship Specialty Start Date End Date Mumtaz Larson MD [address] [facility] [address] [place] [id number] PCP - General Family Medicine 08/26/22 documented as of this encounter
--- OUTSIDE RECORDS SUMMARY | 2025-06-16 09:44 | XMS_ITS | Encounter Summary ---
Author Organization [employer] ([place], [place], [place], [place]) Address [address] [place] [address] Care Team Providers Care Platen Press Feeder Name Role Phone Mumtaz Larson MD Primary Care Provider + [phone] Encounter Details Date Type Department Care Team (Late st Contact Info) Description 06/03/2022 Transcribed Document [facility] [place] [address] [place] [address] ProviderGabriel MD [address] [place] [address] Social History Tobacco Use Types Packs/Day Years [...] Date Macario rded Speak language other than Czech at home Not on file 10/29/2023 Want [...] Conversion Note - Historical Provider, - 06/03/2022 3:53 PM CDT Clinical Dietitian Note Entered On: 06/03/2022 15:53 EDT Performed On: 06/03/2022 15:53 EDT by Maryanne Moon Dietitijayy Clinical Dietitian Note Clinical Dietitian Note : 06/03: c/s- EN management. Pt likely discharging home tomorrow. NETWORK SYSTEMS ENGINEER following and recommend NPO status at this time. Pt receiving Glucerna 1.5, which is being advanced to goal. Discussed pt with nursing. RD left message for [employer] about pt discharging home with EN. Pt to have education regarding PEG and EN prior to discharge. He is currently receiving continuous EN to assess tolerance, but will likely be able to go home on bolus. Est nutrient needs: 2660-6741 kcals (MSJ*1.2AF), 90-110g pro (1.0-1.2 g/kg) 1. Continuous EN: Glucerna 1.5 @ goal of 65ml/hr (2145 kcals, 118g pro). FW per MD. Goal: meet est needs 2. If bolus EN preferred: 6 cans of Glucerna 1.5 daily- 2 @ breakfast, 2@ lunch, 1 @ dinner, 1@ HS (2136 kcals, 118g pro, 1080ml water). Give free water flushes of 130ml before and after boluses. Goal: meet est needs 3. Advance diet as tolerated per NETWORK SYSTEMS ENGINEER and MD + 60g [address] restriction[address] to assess for supplements Goal: tolerate PO diet advancement 4. Monitor weight 1-2x weekly Goal: prevent further unintentional wt changes 5. Monitor elytes and replace PRN. Pt may have an increased risk for refeeding syndrome Goal: elytes WNL 6. Optimize glucose and adjust insulin PRN Goal: Glu 70-180 High nutrition risk Maryanne Moon, Dietitijayy - 06/03/2022 15:53 EDT Electronically signed by Lizabeth Polanco Conversion Industrial Design Engineer Cerner at 02/01/2023 6:52 PM CDT documented in this encounter Plan of Treatment Not on file documented as of this encounter Visit Diagnoses Not on filedocumented in this encounter Care Teams Platen Press Feeder Relationship Specialty Start Date End Date Mumtaz Larson MD [address] [facility] [address] [place] [phone] PCP - General Family Medicine 08/26/22 documented as of this encounter
--- OUTSIDE RECORDS SUMMARY | 2025-06-16 09:44 | XMS_ITS | Encounter Summary ---
Author Organization [employer] ([place], [place], [place], [place]) Address [address] [place] [address] Care Team Providers Care Commercial Subcontractor Name Role Phone Mumtaz Larson MD Primary Care Provider + [phone] Encounter Details Date Type Department Care Team (Late st Contact Info) Description 04/13/2022 Transcribed Document [facility] [place] [address] [place] [address] ProviderGabriel MD [address] [place] [address] Social History Tobacco Use Types Packs/Day Years [...] Date Macario rded Speak language other than Russian at home Not on file 10/29/2023 Want [...] Brant Conversion Note - Historical Provider, - 04/13/2022 9:50 AM CDT Patient: TIEN GARCIA Age: 66 years Sex: Male : 1955 Associated Diagnoses: None Author: SRAVAN HIDALGO MD-TEETEE Subjective Pt making slow improvement; now able to tolerate some periods of time off bipap. He reports significant anxiety with difficulty breathing, particularly when off bipap Objective VS/Measurements Vital Signs/Vital Measures 04/13/2022 8:49 EDT Heart Rate Monitored 102 bpm [place] 04/13/2022 6:00 EDT Systolic Blood Pressure 134 mmHg Diastolic Blood Pressure 85 mmHg Clinical Temperature, F 98.1 Deg F General: Awake and alert; speech is fluent, mildly dysarthric, though difficult to understand due to bipap mask. Eye: Pupils are equal, round and reactive to light, Extraocular movements are intact, R ptosis- improved from prior. Respiratory: on bipap. Cardiovascular: Normal rate, Regular rhythm. Neurologic: Facial weakness noted with right ptosis, CN otherwise intact; motor strength is 5/5 throughout, sensation intact, no ataxia noted. Psychiatric: Cooperative. Results Review Labs reviewed; AchR antibodies elevated- binding 7.3, blocking 53%- consistent with myasthenia gravis Impression and Plan 66yo M admitted with one week history of dysphagia, slurred speech and new onset ptosis; he developed significant shortness of breath shortly after admission as well. He was recently treated for presumed viral meningitis but had recovered from that with no sequelae. Symptoms currently are consist with myasthenia gravis; this has been confirmed with antibody testing, both AchR binding and blocking antibodies are positive. He has completed a 5 day course of IV Ig as well as 5 days high dose IV solumedrol; he continues to be largely bipap dependent but is making slow improvement. He is on prednisone 60mg daily, will plan to taper by 10mg/week if tolerated; he is on Mestinon, will increase dose to 90mg tid today. Recommend to continue PT/OT/speech therapy; continue to wean off bipap- suspect his anxiety is playing a role in difficulty breathing. He will need close outpatient neurologic follow up as an outpatient for group home management of myasthenia. Plan discussed with patient and ; questions answered. I will continue to follow. documented in this encounter Plan of Treatment Not on file documented as of this encounter Visit Diagnoses Not on filedocumented in this encounter Care Teams Commercial Subcontractor Relationship Specialty Start Date End Date Mumtaz Larson MD [address] [facility] [address] [place] [id number] PCP - General Family Medicine 08/26/22 documented as of this encounter
--- OUTSIDE RECORDS SUMMARY | 2025-06-16 09:44 | XMS_ITS | Encounter Summary ---
Author Organization [employer] ([place], [place], [place], [place]) Address [address] [place] [address] Care Team Providers Care Furniture Rental Consultant Name Role Phone Mumtaz Larson MD Primary Care Provider + [phone] Encounter Details Date Type Department Care Team (Late st Contact Info) Description 06/03/2022 Transcribed Document [facility] [place] Family [place] [address] [place] [address] ProviderGabriel MD [address] [place] [address] Social History Tobacco Use Types Packs/Day Years [...] Historical Provider, - 06/03/2022 5:00 AM CDT Chart Check - Review Order Profile Entered On: 06/03/2022 5:43 EDT Performed On: 06/03/2022 5:00 EDT by Marie Billy, NON EMP RN Chart Check Powerplans Initiated/Discontinued as Appropriate : Yes All Active Orders Reviewed : Yes Marie Billy, SULY EMP RN - 06/03/2022 5:43 EDT Electronically signed by Sherri [facility] Conversion Tank Tester Cerner at 02/01/2023 6:45 PM CDT documented in this encounter Plan of Treatment Not on file documented as of this encounter Visit Diagnoses Not on filedocumented in this encounter Care Teams Furniture Rental Consultant Relationship Specialty Start Date End Date Mumtaz Larson MD [address] [facility] [address] [place] [phone] PCP - General Family Medicine 08/26/22 documented as of this encounter
--- OUTSIDE RECORDS SUMMARY | 2025-06-16 09:44 | XMS_ITS | Encounter Summary ---
Author Organization [employer] ([place], [place], [place], [place]) Address [address] [place] [address] Care Team Providers Care Preventative Maintenance Technician Name Role Phone Mumtaz Larson MD Primary Care Provider + [phone] Encounter Details Date Type Department Care Team (Late st Contact Info) Description 06/01/2022 Transcribed Document [facility] [place] Family Medicine [address] [place] [address] ProviderGabriel MD [address] [place] [address] Social History Tobacco Use Types Packs/Day Years [...] Conversion Note - Historical Provider, - 06/01/2022 4:19 PM CDT ED Discharge Entered On: 06/01/2022 16:58 EDT Performed On: 06/01/2022 16:19 EDT by Taylor Cordova RN Discharge Process Patient Disposition : Admit/Observe Personal Belongings With Patient : Yes Teaching Evaluation : Verbalizes understanding IV Discontinued : No Nursing Documentation Completed : Yes Taylor Cordova RN - 06/01/2022 16:58 EDT Admission, ED `Nurse Report (Hand Off) : Called Taylor Cordova RN - 06/01/2022 16:58 EDT Electronically signed by Sherri [facility] Conversion [employer] Cerner at 02/01/2023 6:53 PM CDT documented in this encounter Plan of Treatment Not on file documented as of this encounter Visit Diagnoses Not on filedocumented in this encounter Care Teams Preventative Maintenance Technician Relationship Specialty Start Date End Date Mumtaz Larson MD [address] [facility] [address] [place] [phone] PCP - General Family Medicine 08/26/22 documented as of this encounter
--- OUTSIDE RECORDS SUMMARY | 2025-06-16 09:44 | XMS_ITS | Encounter Summary ---
Author Organization [employer] ([place], [place], [place], [place]) Address [address] [place] [address] Care Team Providers Care Er Tech Name Role Phone Mumtaz Larson MD Primary Care Provider + [phone] Encounter Details Date Type Department Care Team (Late st Contact Info) Description 06/02/2022 Transcribed Document [facility] [place] Family Medicine [address] [place] [address] ProviderGabriel MD [address] [place] [address] Social History Tobacco Use Types Packs/Day Years [...] Conversion Note - Historical Provider, - 06/02/2022 5:00 AM CDT Chart Check - Review Order Profile Entered On: 06/02/2022 4:31 EDT Performed On: 06/02/2022 5:00 EDT by Marie Billy, NON EMP RN Chart Check Powerplans Initiated/Discontinued as Appropriate : Yes All Active Orders Reviewed : Yes Marie Billy, SULY EMP RN - 06/02/2022 4:31 EDT Electronically signed by Sherri [facility] Conversion Legal Practice Manager Cerner at 02/01/2023 7:11 PM CDT documented in this encounter Plan of Treatment Not on file documented as of this encounter Visit Diagnoses Not on filedocumented in this encounter Care Teams Er Tech Relationship Specialty Start Date End Date Mumtaz Larson MD [address] [facility] [address] [place] [phone] PCP - General Family Medicine 08/26/22 documented as of this encounter
--- OUTSIDE RECORDS SUMMARY | 2025-06-16 09:44 | XMS_ITS | Encounter Summary ---
Author Organization [email or web address] ([place], [place], [place], [place]) Address [address] [place] [address] Care Team Providers Care Chief Digital Media Officer Name Role Phone Mumtaz Larson MD Primary Care Provider + [phone] Encounter Details Date Type Department Care Team (Late st Contact Info) Description 04/07/2022 Transcribed Document [facility] [place] Family Medicine [address] [place] [address] ProviderGabriel MD [address] [place] [address] Social History Tobacco Use Types Packs/Day Years [...] Conversion Note - Historical Provider, - 04/07/2022 1:06 PM CDT Patient: TIEN GARCIA Age: 66 [...] prostate cancer Social: remote tobacco Family: HTN Review of Systems Constitutional: Weakness, Decreased activity, [...] Cap, Oral, Daily, 0 Refill(s) Flonase: 1 [place], Nostrils Both, Daily, 0 Refill(s) MetFORMIN (Eqv-Glucophage [...] mg 1 Tab, Oral, Q4H Problem list: All Problems Prostate cancer / SNOMED CT 5575499951 / Confirmed Microscopic colitis / SNOMED CT 996693048 / Confirmed History of obstructive sleep apnea / IMO 40959930 / Confirmed High blood pressure / SNOMED CT 88574388 / Confirmed Hard of hearing / SNOMED CT 280948489 / Confirmed GERD - Gastro-esophageal reflux disease / SNOMED CT 2801838520 / Confirmed Diabetes mellitus type II / SNOMED CT 61600300 / Confirmed Bronchitis / SNOMED CT 74146270 / Confirmed Arthritis / SNOMED CT 9780577 / Confirmed Allergic rhinitis / SNOMED CT 302146451 / Confirmed, Active Problems (10) Allergic rhinitis [...] 06 20:27) 135 (APR 07 05:59) SpO2 97 (APR 07 12:43) L 90 (APR 06 16:08) 97 (APR 06 17:29) General: Mild distress, 2LNC. Eye: Pupils are equal, round and reactive to light, Normal conjunctiva, R eye droopiness. HENT: Normocephalic, Oral mucosa is moist. Neck: Supple, No lymphadenopathy. Respiratory: dec bilateral bases, intermit accessory muscle use/abdominal use. Cardiovascular: Normal rate, Regular rhythm, No edema. Gastrointestinal: Soft, Non-tender, Non-distended, Normal bowel sounds. Integumentary: Warm, Dry, Meckling. Neurologic: Alert, Oriented, able to ballast regulator operator bilateral and wiggle toes, R eyelid droop noted he is speaking however difficulty articulating clearly secondary tongue movement issues. Psychiatric: Cooperative, Appropriate mood & affect. Review / Management Results review: Labs (Last four charted values) WBC H 11.3 (APR 07) H 15.6 (APR 06) HB 16.7 (APR 07) H 17.6 (APR 06) HCT 50.7 (APR 07) H 52.3 (MAR 20) Plt 362 (APR 07) 329 (VERO 20) Na 138 (VERO 21) 138 (VERO 20) K 3.6 (APR 07) L 3.2 (APR [...] (APR 06) ALB 4.4 (APR 06) . APR 07 08:22 138 103 15 / 105 3.6 25 0.70 \ Radiology Results (Last 48 hours) [id number] -- 04/06/2022 15:42 CR Chest 1 Vw [...] o2 as needed keep sats 92-96%, currently patient on 2 L oxygen Continue with mechanics Q 8 H, Add Bipap for WOB PRN and every HS, monitor closely for need for ICU transfer Obtain ABG and CXR today, a follow-up chest x-ray was done showed left lower lobe opacity, chest x-ray reviewed Independently. Twice daily NIF, vital capacity. Keep HOB elevated Uncontrolled hypertension, recommend target systolic blood pressure less than 160. Neuro in process of evaluating MRI pending acetylcholine law firm receptionist studies pending On Mestinon Has orders for Solumedrol and IVIG Has been ordered Seroquel per Neurology Glycemic control, on correction insulin, target glucose 140-180 mg/dL. Currently not on DVT/ GI prophylaxis- add SCUDs AM orders placed Plan of care was discussed with the primary team. Chest x-ray finding discussed with primary team. Chest x-ray reviewed independently showed left lower lobe opacity pneumonia cannot be excluded. We will start patient on Zosyn. We will send for sputum culture. Labs reviewed leukocytosis, on 2 L oxygen [...] feeling better after treatment started by neurology. I have personally evaluated the patient; Obtained history, performed physical examination, reviewed laboratory studies. I have reviewed images independent of radiologist. I have actively directed the medical care, formulated diagnosis, and the plan of care. Patient requires a high complexity of decision making for assessment. documented in this encounter Plan of Treatment Not on file documented as of this encounter Visit Diagnoses Not on filedocumented in this encounter Care Teams Chief Digital Media Officer Relationship Specialty Start Date End Date Mumtaz Larson MD [address] [place] [facility] [address] [place] [phone] PCP - General Family Medicine 08/26/22 documented as of this encounter
--- OUTSIDE RECORDS SUMMARY | 2025-06-16 09:44 | XMS_ITS | Encounter Summary ---
Author Organization [employer] ([place], [place], [place], [place]) Address [address] [place] [address] Care Team Providers Care Adobe Architect Name Role Phone Mumtaz Larson MD Primary Care Provider + [phone] Encounter Details Date Type Department Care Team (Late st Contact Info) Description 06/03/2022 Transcribed Document [facility] [place] [address] [place] [address] ProviderGabriel MD [address] [place] [address] Social History Tobacco Use Types Packs/Day Years [...] Conversion Note - Historical Provider, - 06/03/2022 2:00 AM CDT Binder Cutter Hand Details Entered On: 06/03/2022 1:41 EDT Performed On: 06/03/2022 2:00 EDT by Marie Billy, NON EMP RN Order Details Transport Mode Order Detail : Ambulatory Order Detail : N/A IV Order Detail : 1 Oxygen Order Detail : 0 Lift/Transfer : Independent Central Line Order Detail : No Arterial Line : No Patient Needs Meds Crushed/Liquid : No Marie Billy NON EMP RN - 06/03/2022 1:40 EDT documented in this encounter Plan of Treatment Not on file documented as of this encounter Visit Diagnoses Not on filedocumented in this encounter Care Teams Adobe Architect Relationship Specialty Start Date End Date Mumtaz Larson MD [address] [place] [facility] [address] [place] [phone] PCP - General Family Medicine 08/26/22 documented as of this encounter
--- OUTSIDE RECORDS SUMMARY | 2025-06-16 09:45 | XMS_ITS | Encounter Summary ---
Author Organization [employer] ([place], [place], [place], [place]) Address [address] [place] [address] Care Team Providers Care Elementary Educator Name Role Phone Mumtaz Larson MD Primary Care Provider + [phone] Encounter Details Date Type Department Care Team (Late st Contact Info) Description 06/01/2022 Transcribed Document [facility] [place] Family Medicine [address] [place] [address] ProviderGabriel MD [address] [place] [address] Social History Tobacco Use Types Packs/Day Years [...] Conversion Note - Historical Provider, - 06/01/2022 3:11 PM CDT Consult Phone Call Documentation Entered On: 06/01/2022 15:59 EDT Performed On: 06/01/2022 15:11 EDT by Erica Hong, CRIB TENDER Phone Call for Consults Consult Phone Call/Page Attempt : First call Consult, Additional Information : Called Dr. Smith @ 15:59 06/01/2022 Erica Hong, CRIB TENDER - 06/01/2022 15:59 EDT Electronically signed by Sherri [facility] Conversion Clinical Dental Technician Cerner at 02/01/2023 6:55 PM CDT documented in this encounter Plan of Treatment Not on file documented as of this encounter Visit Diagnoses Not on filedocumented in this encounter Care Teams Elementary Educator Relationship Specialty Start Date End Date Mumtaz Larson MD [address] [facility] [address] [place] [phone] PCP - General Family Medicine 08/26/22 documented as of this encounter
--- OUTSIDE RECORDS SUMMARY | 2025-06-16 09:45 | XMS_ITS | Encounter Summary ---
Author Organization [employer] ([place], [place], [place], [place]) Address [address] [place] [address] Care Team Providers Care Medical Bill Processor Name Role Phone Mumtaz Larson MD Primary Care Provider + [phone] Reason for Visit * Reason Comments Medication Refill Encounter Details Date Type Department Care Team (Late st Contact Info) Description 04/27/2025 Refill [facility] Neurology - [email or web address] [facility] [address] [place] [phone] Alex Fields MD [facility] [employer] [facility] [address] [place] [address] Myasthenia gravis without (acute) exacerbation (HCC) Social History Tobacco Use Types Packs/Day Years Used Date Smoking Tobacco: Former Cigarettes Q uit: 1980 Smokeless Tobacco: Never Alcohol Use Standard Drinks/Week Comments Never 0 (1 standard drink = 0.6 oz pur e alcohol) Food Insecurity Answer Date Recorded Food run [...] documented as of this encounter Visit Diagnoses Diagnosis Myasthenia gravis without (acute) exacerbation (HCC) documented in this encounter Care Teams Medical Bill Processor Relationship Specialty Start Date End Date Mumtaz Larson MD [address] [facility] [address] [place] [phone] PCP - General Family Medicine 08/26/22 documented as of this encounter
--- OUTSIDE RECORDS SUMMARY | 2025-06-16 09:45 | XMS_ITS | Encounter Summary ---
Author Organization [employer] ([place], [place], [place], [place]) Address [address] [place] [address] Care Team Providers Care Fluid Dynamicist Name Role Phone Mumtaz Larson MD Primary Care Provider + [phone] Encounter Details Date Type Department Care Team (Late st Contact Info) Description 06/01/[address] [facility] [place] Family Medicine [address] [place] [address] ProviderGabriel MD [address] [place] [address] Social History Tobacco Use Types Packs/Day Years [...] Conversion Note - Historical Provider, - 06/01/2022 4:48 PM CDT Consult Phone Call Documentation Entered On: 06/01/2022 17:55 EDT Performed On: 06/01/2022 16:48 EDT by Erica Hong, PRIZE JACKER Phone Call for Consults Consult Phone Call/Page Attempt : First call Consult, Additional Information : Called Dr. Rosas 06/01/2022 Erica Hong, PRIZE JACKER - 06/01/2022 17:54 EDT Electronically signed by Sherri [facility] Conversion Laser Beam Machine Operator Cerner at 02/01/2023 6:47 PM CDT documented in this encounter Plan of Treatment Not on file documented as of this encounter Visit Diagnoses Not on filedocumented in this encounter Care Teams Fluid Dynamicist Relationship Specialty Start Date End Date Mumtaz Larson MD [address] [facility] [address] [place] [id number] PCP - General Family Medicine 08/26/22 documented as of this encounter
--- OUTSIDE RECORDS SUMMARY | 2025-06-16 09:45 | XMS_ITS | Clinical Summary ---
Author Organization [employer] ([place], [place], [place], [place]) Address [address] [place] [address] Care Team Providers Care Estimator Paperboard Boxes Name Role Phone Mumtaz Larson MD Primary Care Provider + [phone] Allergies Active Allergy Reactions Criticality Noted Date Comments Other 09/17/2023 Needs to be careful on which antibiotics he takes d/t Myasthenia Gravis Medications allopurinoL (ZYLOPRIM) 300 MG tablet allopurinol 300 mg tablet Active DULoxetine (CYMBALTA) 60 MG capsule duloxetine 60 mg capsule,delayed release Active fenofibrate (TRICOR) 145 MG tablet fenofibrate nanocrystallized 145 mg tablet Active QUEtiapine (SEROquel) 200 MG tablet Seroquel 200 mg tablet Active polycarbophil (FIBERCON) 625 mg tablet FiberCon 625 mg tablet As Directed Active levothyroxine (SYNTHROID, LEVOTHROID) 50 MCG tablet levothyroxine 50 mcg tablet TAKE ONE TABLET BY MOUTH EVERY DAY Active busPIRone (BUSPAR) 10 MG tablet 023 Active omeprazole (PriLOSEC) 20 MG capsule 023 Active budesonide (ENTOCORT EC) 3 mg 24 hr capsule Take 3 capsules (9 mg total) by mouth daily. 023 Active Bifidobacterium infantis (ALIGN ORAL) Take by mouth. Activ e tamsulosin (FLOMAX) 0.4 mg Cap 24 hr capsule Take 1 capsule (0.4 mg total) by mouth daily. 023 Active mycophenolate mofetil (CELLCEPT) 500 mg tabletIndicatio ns:Myasthenia gravis without (acute) exacerbation (HCC) TAKE THREE TABLETS BY MOUTH TWICE DAILY 162 tablet 1 025 Active mycophenolate mofetil (CELLCEPT) 500 mg tabletIndicatio ns:Myasthenia gravis without (acute) exacerbation (HCC) TAKE THREE TABLETS BY MOUTH TWICE DAILY 162 tablet 1 025 2024 Discontinued Active Problems Problem Noted Date Diagnosed Date Myasthenia gravis 09/22/2023 Preop examination 09/19/2023 Carpal tunnel syndrome on right 09/19/2023 Microscopic colitis 09/19/2023 Depression with anxiety 09/19/2023 BRETT (obstructive sleep apnea) 09/19/2023 Myasthenia gravis 10/06/2022 Infection of superficial inc isional surgical site after procedure, subsequent encounter 09/30/2022 Date of surgery: 09/17/22 S/p Right elbow olecranon bursectomy 09/24/2022 Allergic rhinitis 08/11/2022 Arthritis 08/11/2022 Bronchitis 08/11/2022 Diabetes mellitus, type II 08/11/2022 GERD (gastroesophageal reflux disease) Hard of hearing 08/11/2022 Hypertension 08/11/2022 History of obstructive sleep apnea 08/11/2022 Prostate cancer 08/11/2022 Thyroid disease Encounters Date Type Department Care Team Description 05/25/2025 [facility] - [address] [place] [phone] Alex Fields MD Myasthenia gravis without (acute) exacerbation (HCC) 04/27/2025 [facility] - [address] [place] [address] Alex Fields MD Myasthenia gravis without (acute) exacerbation (HCC) 03/25/2025 [facility] - [address] [place] [address] Alex Fields MD Myasthenia gravis without (acute) exacerbation (HCC) from Last 3 Months Immunizations Name Administration Dates Next Due Influenza Quad-qiv Non Pf 07/22/2018,07/22/2017 Influenza, High Dose 08/03/2019 Pneumococcal Conjugate (Prevnar) 13-Valent 08/03 Tdap 07/09/2022 Family History Medical History Relation Name Comments No Known Problem Father suddenly at age 96 No Known Problem Mother Depression Other Diabetes Other Psoriasis Other Relation Name Status Comments Father Mother Alive Other Social History Tobacco Use Types Packs/Day Years Used Date Smoking Tobacco: Former Cigarettes Q uit: 1980 Smokeless Tobacco: Never Tobacco Cessation:Counseling Given: Not Answered Alcohol Use Standard Drinks/Week Comments Never 0 [...] Date Macario rded Speak language other than Turkmen at home Not on file 10/29/2023 Want [...] PM CDT Sexual Orientation Not on file Last Filed Vital Signs Vital Sign Reading Time Taken Comments Blood Pressure 120/82 12/20/2023 8:23 AM EST Pulse 92 12/20/2023 8:23 AM EST Temperature 36.4 C (97.5 F) 09/22/2023 8:35 AM EST Respiratory Rate 16 09/22/2023 8:40 AM EST Oxygen Saturation 93% 12/20/2023 8:23 AM EST Inhaled Oxygen Concentration - - Weight 96.2 kg (212 lb) 12/20/2023 8:23 AM EST Height 185.4 cm (6' 1 ) 12/20/2023 8:23 AM EST Body Mass Index 27.97 12/20/2023 8:23 AM EST Plan of Treatment Health Maintenance Due Date Last Done Comments CT Colonography 1955 Colonoscopy 1955 Colorectal Cancer Screening 1955 Diabetic Kidney Health Evalu ation (KED) 1955 FOBT/FIT 1953 Fit-DNA (Cologuard) 1955 Sigmoidoscopy 1953 Diabetic Eye Exam 1963 Shingles Vaccine (Zoster) (1 of 2) 1972 Respiratory Syncytial Virus (RSV) Adult or (1 - Risk 60-74 years 1-dose series) 2013 Pneumococcal 50+ years (2 of 2 - PPSV23) 09/28/2019 08/03/2019 COVID-19 VACCINE (3 - Pfizer risk series) 03/04/2021 02/04/2021, 12/27/2020 Medicare Initial AWV [id number] 10/19/2022 Hemoglobin A1C 03/18/2024 09/17/2023, 02/01/2023 Falls Risk Screening 10/18/2024 Tobacco Cessation Counseling and Screening (12+) 12/19/2024 12/20/2023 Influenza Vaccine (#1) 2025 2, 08/03/2019, 08/03/2019, Additional history exists DTAP/TDAP/TD VACCINES (2 - T d or Tdap) 07/09/2032 07/09/2022 Hepatitis C Screening Completed 04/12/2022 Procedures Procedure Name Priority Date/Time Associated Diagnosis Comments HEMOGLOBIN A1C Routine 09/17/2023 12:23 PM EST Preop examination HEPATITIS PANEL, ACUTE Routine 04/12/2022 3:41 AM EDT from Last 3 Months or Most Recently Relevant to Health Maintenance Results * Hemoglobin A1c (09/17/2023 12:23 PM EST) Hemoglobin A1C 5.1 4.2 - 6.3 % 09/17/2023 2:13 PM EST [facility] Comment: Hemoglobin A1C levels are related to mean glucose during the preceding 2-3 months. Less than 7% demonstrates glycemic control in diabetic patients. Hemoglobin AlC % Suggested Diagnosis > or = 6.5 Diabetic 5.7 - 6.4 Prediabetic <5.7 Non-diabetic eAVG Glucose 99.67 mg/dL 09/17/2023 2:13 PM EST [facility] Blood Venipuncture / Unknown 09/17/2023 12:23 PM EST 09/17/2023 1:27 PM EST us Jose Armando Hubbard MD LAB BLOOD ORDERABLES Final Res ult [facility] [address] [phone] * Hepatitis panel, acute (04/12/2022 3:41 AM EDT) Hep A IgM AB Non Reactive Non Reactive 04/12/2022 9:04 AM EDT Comment: (a) A negative test result does not exclude the possibility of exposure to the hepatitis A virus. (b) This test can be used to determine if a patient has or recently had an acute or asymptomatic hepatitis A infection. (c) A reactive result does not exclude co-infection by another hepatitis virus. Hep B Surf AG Non Reactive Non Reactive 04/12/2022 8:34 AM EDT Comment:This test may not de tect all HBV mutants. If acute or chronic HBV infection is suspected and this test is non-reactive other HBV markers should be tested. Hep B Core Non Reactive Non Reactive 04/12/2022 9:03 AM EDT Hep C AB Non Reactive Non Reactive 04/12/2022 9:03 AM EDT Comment:A negative test resu lt does not exclude the possibility of exposure to the hepatitis C virus and a reactive result does not exclude co-infection by another hepatitis virus. Blood 04/12/2022 3:41 AM EDT 04/12/2022 7:43 AM EDT [facility] Provider LAB BLOOD ORDERABLES Fi nal Result [facility] [address] [place] [address], [facility] [phone] from Last 3 Months or Most Recently Relevant to Health Maintenance Insurance [facility] MEDICARE ADVANTAGE Advance Directives For more information, please contact: [phone] * Full Code (Latest Code Status on File) Date Activated Date Inactivated Comments 09/22/2023 5:16 AM 09/29/2023 3:27 PM * Full Code Date Activated Date Inactivated Comments 02/03/2023 9:28 AM 02/03/2023 4:23 PM * Full Code Date Activated Date Inactivated Comments 09/17/2022 7:36 AM 09/17/2022 12:42 PM Care Teams Estimator Paperboard Boxes Relationship Specialty Start Date End Date Mumtaz Larson MD [address] [place] [facility] [address] [place] [phone] PCP - General Family Medicine 08/26/22
--- OUTSIDE RECORDS SUMMARY | 2025-06-16 09:45 | XMS_ITS | Encounter Summary ---
Author Organization [employer] ([place], [place], [place], [place]) Address [address] [place] [address] Care Team Providers Care Patternmaker Plastics Name Role Phone Mumtaz Larson MD Primary Care Provider + [phone] Encounter Details Date Type Department Care Team (Late st Contact Info) Description 06/01/2022 Transcribed Document [facility] Family Medicine [address] [place] [address] ProviderGabriel MD [address] [place] [address] Social History Tobacco Use Types Packs/Day Years [...] Conversion Note - Historical Provider, - 06/01/2022 11:50 AM CDT Patient: TIEN GARCIA Age: 66 years Sex: Male : 1955 Associated Diagnoses: Myasthenia gravis with exacerbation; Cellulitis Author: LAURENCE FERRER DO Basic Information Time seen: Date 06/01/2022, Immediately upon arrival. History source: Patient, significant other. Arrival mode: Private vehicle. History limitation: None. Additional information: Chief Complaint from Nursing Triage Note : Chief Complaint 06/01/2022 11:09 EDT Chief Complaint c/o increased difficulty swallowing over past 3 days. Hx of Myasthenia Gravis. Recently began taking clindamycin/bactrim. . History of Present Illness The patient presents with difficulty swallowing. The onset was 3 days ago. The course/duration of symptoms is worsening. Character of symptoms unable to swallow. The degree at present is moderate. The exacerbating factor is eating. The relieving factor is none. Risk factors consist of none and myasthenia gravis. Prior episodes: occasional. Therapy today: see nurses notes. Associated symptoms: none. Review of Systems Additional review of systems information: All other systems reviewed and otherwise negative. Health Status Allergies: Allergic Reactions (Selected) No Known Medication Allergies. Medications: (Selected) Inpatient Medications Ordered Normal Saline Flush: 10 mL, IV Push, See Comment SOLU-Medrol: 125 mg, IV Push, 1-Time Sodium Chloride 0.9% bolus: 1,000 mL, 1,000 mL/Hr, IV Piggyback, 1-Time Prescriptions Prescribed BD Pen [place] Short U/F 8mm x 31G: See Special Instructions, SubCutaneous, QID, Use up to 4x per day, 100 Each, 0 Refill(s) Insulin Syringe U-100, 0.5 mL: See Special Instructions, SubCutaneous, QID, Use up to 4x per day, 100 Each, 0 Refill(s) Mestinon 60 mg oral tablet: 1.5 Tab, Oral, TID, 135 Tab, 0 Refill(s) insulin regular 100 units/mL human recombinant injectable solution: Scale C, SubCutaneous, BIDAC, Take as directed as per sliding scale., 10 mL, 0 Refill(s) potassium chloride 20 mEq oral tablet, extended release: 1 Tab, Oral, BID, 60 Tab, 0 Refill(s) Documented Medications Documented Cymbalta 60 mg oral delayed release capsule: 2 Cap, Oral, Daily, (do not crush or chew), 30 Cap, 0 Refill(s) Flomax 0.4 mg oral capsule: 1 Cap, Oral, Daily, 0 Refill(s) Flonase: 1 Bogart, Nostrils Both, Daily, 0 Refill(s) MetFORMIN (Eqv-Glucophage XR) 500 mg oral tablet, extended release: 1 Tab, Oral, Daily, 0 Refill(s) PriLOSEC 20 mg oral delayed release capsule: 1 Cap, Oral, Daily, before a meal, 30 Cap, 0 Refill(s) SEROquel 200 mg oral tablet: 2 Tab, Oral, BID, 0 Refill(s) TriCor 145 mg oral tablet: 1 Tab, Oral, Daily, 0 Refill(s) allopurinol 300 mg oral tablet: 1 Tab, Oral, Daily, 0 Refill(s) atenolol-chlorthalidone 100 mg-25 mg oral tablet: 1 Tab, Oral, Daily, 30 Tab, 0 Refill(s) levothyroxine 50 mcg (0.05 mg) oral tablet: 1 Tab, Oral, Daily, 0 Refill(s) pramipexole 0.25 mg oral tablet: 1 Tab, Oral, At Bedtime, 0 Refill(s). Past Medical/ Family/ Social History Medical history Reviewed as documented in chart. Surgical history: knee scope. hand surgery. umbilical hernia repair. Appendectomy ([id number]). Brachytherapy ([id number]). Comments: 09/27/2020 10:27 Miguel Angel Valdivia Rn for prostate cancer, Reviewed as documented in chart. Family history: No family history items have been selected or recorded., Reviewed as documented in chart. Social history: Social & Psychosocial Habits Alcohol 09/27/2020 Alcohol Use History, Social Habits No Alcohol Use in Last Twelve Months No Substance Abuse 09/27/2020 Recreational Drug Use History No Recreational Drug Use Last 12 Months No Tobacco 09/27/2020 Smoking Status Former smoker, quit more Smokeless Tobacco Status Never Smokeless Tobacco Use History None Month Tobacco Last Used quit in the 80s , Reviewed as documented in chart. Problem list: Active Problems (10) Allergic rhinitis Arthritis Bronchitis Diabetes mellitus type II GERD - Gastro-esophageal reflux disease Hard of hearing High blood pressure History of obstructive sleep apnea Microscopic colitis Prostate cancer , per nurse's notes. Physical Examination Vital Signs Vital Signs/Vital Measures 06/01/2022 11:09 EDT Systolic Blood Pressure 93 mmHg Diastolic Blood Pressure 65 mmHg Temperature Source Temporal artery scanning Temperature Mode Fahrenheit Temperature, Fahrenheit 98.1 Deg F Clinical Temperature, C 36.7 Deg C Peripheral Pulse Rate 78 bpm Respiratory Rate 18 Breaths/Min Oxygen Saturation 97 % Oxygen Therapy Mode Room air . Measurements 06/01/2022 11:09 EDT Height Source Stated Height Entry Format Atkinson Height/Length, QATARI (ft) 6 ft Height/Length QATARI 1 Inch CLINICALHEIGHT 185.42 cm [place] Body Weight 78.88 kg Weight Source, ED Critical estimated dosing weight Weight Entry Format Atkinson Weight Colombian lb 205 lb CLINICALWEIGHT 93.18 kg Body Surface Area (BSA) 2.18 m2 Body Mass Index 27.1 kg/m2 HI . Oxygen Saturation 06/01/2022 11:09 EDT Oxygen Saturation 97 % . General: Alert, no acute distress. Skin: Warm, dry, pink, intact, no pallor, no rash, normal for ethnicity, Erythema and warmth with mild swelling of right elbow. Head: Normocephalic, atraumatic. Neck: Supple, trachea midline, no tenderness, no JVD, no carotid bruit. Eye: Pupils are equal, round and reactive to light, extraocular movements are intact, normal conjunctiva, vision unchanged. Ears, nose, mouth and throat: Tympanic membranes clear, oral mucosa moist, no pharyngeal erythema or exudate. Cardiovascular: Regular rate and rhythm, No murmur, Normal peripheral perfusion, No edema. Respiratory: Lungs are clear to auscultation, respirations are non-labored, breath sounds are equal, Symmetrical chest wall expansion. Chest wall: No tenderness, No deformity. Back: Nontender, Normal range of motion, Normal alignment, no step-offs. Musculoskeletal: Normal ROM, normal strength, no tenderness, no swelling, no deformity. Gastrointestinal: Soft, Nontender, Non distended, Normal bowel sounds, No organomegaly. Genitourinary: No tenderness. Neurological: Alert and oriented to person, place, time, and situation, No focal neurological deficit observed, CN II-XII intact, normal sensory observed, normal motor observed, normal speech observed, normal coordination observed. Lymphatics: No lymphadenopathy. Psychiatric: Cooperative, appropriate mood & affect, normal judgment, non-suicidal. Medical Decision Making Differential Diagnosis: Myasthenia gravis. Documents reviewed: Emergency department nurses' notes, emergency department records, prior records. Results review: Lab results : Lab Results 06/01/2022 11:48 EDT Sodium Level 131 mmol/L LOW Potassium Level 3.2 mmol/L LOW Chloride Level 101 mmol/L LOW Carbon Dioxide Level 20 mmol/L LOW Anion Gap 13 Glucose Level 109 mg/dL HI Blood Urea Nitrogen 14 mg/dL Creatinine Level 0.80 mg/dL eGFR >60 mL/min/1.73m2 eGFR NonAfrican >60 mL/min/1.73m2 Bun/Creatinine 17.5 Calcium Level 9.1 mg/dL Protein Total 7.1 Gram/dL Albumin Level 3.3 Gram/dL LOW Globulin 3.8 Gram/dL A/G Ratio 0.9 LOW Bilirubin Total 0.8 mg/dL Alk Phos 58 Units/Liter AST 18 Units/Liter ALT 25 Units/Liter Lactic Acid Level 1.4 mmol/L WBC 12.5 K/uL HI RBC 5.62 Million/uL Hgb 16.5 g/dL Hct 48.4 % MCV 86.1 fL MCH 29.4 pg MCHC 34.1 Gram/dL Platelet Count 406 K/uL HI MPV 9.6 fL RDW 13.4 % Neut % 81.9 % HI Neut # 10.26 K/uL HI Lymph % 10.7 % LOW Lymph # 1.34 x10(3)/uL Trimble % 6.2 % Trimble # 0.78 K/uL Eos % 0.6 % Eos # 0.08 x10(3)/uL Baso % 0.2 % Baso # 0.03 x10(3)/uL Slide Review No IG# 0.05 x10(3)/uL IG% 0.40 % . Impression and Plan Diagnosis Myasthenia gravis with exacerbation - Discharge, Emergency medicine, Medical Cellulitis - Discharge, Emergency medicine, Medical Plan Condition: Stable. Disposition: Admit Admit/Transfer/Discharge: Admit to Inpatient (Order): Start: 06/01/2022 13:28 EDT, Admit reason: myasthenia gravis, Estimated length of stay 2 Midnights or LONGER, Level of Care: Med-Surg with telemetry, Admitting: RAFA ALEXANDER, DO-INT. Counseled: Patient, Regarding diagnosis, Regarding diagnostic results, Regarding treatment plan, Patient indicated understanding of instructions. Notes: Emergency department course, patient presents with an exacerbation of his myasthenia gravis presenting with difficulty swallowing. He states he recently had any cellulitis and infection of his right elbow and was placed on antibiotics which exacerbated it. He is hemodynamically stable oxygenating normally. He has been compliant with his medications. The be admitted the hospital with neurology consultation. He was started on IV Solu-Medrol. We will be giving him IVIG.. Electronically signed by Sherri [facility] Conversion Synthetic Plasterer Cerner at 02/01/2023 6:47 PM CDT documented in this encounter Plan of Treatment Not on file documented as of this encounter Visit Diagnoses Not on filedocumented in this encounter Care Teams Patternmaker Plastics Relationship Specialty Start Date End Date Mumtaz Larson MD [address] [place] [facility] [address] [place] [phone] PCP - General Family Medicine 08/26/22 documented as of this encounter
--- OUTSIDE RECORDS SUMMARY | 2025-06-16 09:45 | XMS_ITS | Referral Summary ---
Author Organization [employer] ([place], [place], [place], [place]) Address [address] [place] [address] Care Team Providers Care Flower Shop Laborer/Designer Name Role Phone Mumtaz Larson MD Primary Care Provider [phone] Encounters Date Type Department Care Team Description 05/25/2025 Refill [facility] [address] [employer] [address] [phone] Alex Fields MD Myasthenia gravis without (acute) exacerbation (HCC) 04/27/2025 Refill [facility] [address] [facility] [employer] [address] [phone] Alex Fields MD Myasthenia gravis without (acute) exacerbation (HCC) 03/25/2025 Refill [facility] [address] [facility] [employer] [address] [phone] Alex Fields MD Myasthenia gravis without (acute) exacerbation (HCC) from Last 3 Months Allergies Active Allergy Reactions Criticality Noted Date [...] DAY Active busPIRone (BUSPAR) 10 MG tablet Active omeprazole (PriLOSEC) 20 MG capsule 023 [...] apnea 08/11/2022 Prostate cancer 08/11/2022 Thyroid disease Immunizations Name Administration Dates Next Due Influenza Quad-qiv Non Pf 07/22/2018,07/22/2017 Influenza, High Dose 08/03/2019 Pneumococcal Conjugate (Prevnar) 13-Valent 08/03 Tdap 07/09/2022 Social History Tobacco Use Types Packs/Day Years [...] 12/20/2023 8:23 AM EST Plan of Treatment Not on file Procedures Procedure Name Priority Date/Time Associated Diagnosis Comments HEMOGLOBIN A1C Routine 09/17/2023 12:23 PM EST Preop examination HEPATITIS PANEL, ACUTE Routine 04/12/2022 3:41 AM EDT from Last 3 Months or Most Recently Relevant to Health Maintenance Results * Hemoglobin A1c (09/17/2023 12:23 PM EST) Hemoglobin A1C 5.1 4.2 - 6.3 % 09/17/2023 2:13 PM EST [facility] Comment: Hemoglobin A1C levels are related to mean glucose during the preceding 2-3 months. Less than 7% demonstrates glycemic control in diabetic patients. Hemoglobin AlC % Suggested Diagnosis > or = 6.5 Diabetic 5.7 - 6.4 Prediabetic <5.7 Non-diabetic eAVG Glucose 99.67 mg/dL 09/17/2023 2:13 PM EST [facility] Blood Venipuncture / Unknown 09/17/2023 12:23 PM EST 09/17/2023 1:27 PM EST us Jose Armando Hubbard MD LAB BLOOD ORDERABLES Final Res ult [facility] [address] [phone] * Hepatitis panel, acute (04/12/2022 3:41 AM [...] 3:41 AM EDT 04/12/2022 7:43 AM EDT [facility] Historical Provider LAB BLOOD ORDERABLES nal Result [facility] [address] [phone] from Last 3 Months or Most Recently Relevant to Health Maintenance Insurance [facility] MEDICARE ADVANTAGE Advance Directives For more information, please contact: [phone] * Full Code (Latest Code Status on File) Date Activated Date Inactivated Comments 09/22/2023 5:16 AM 09/29/2023 3:27 PM * Full Code Date Activated Date Inactivated Comments 02/03/2023 9:28 AM 02/03/2023 4:23 PM * Full Code Date Activated Date Inactivated Comments 09/17/2022 7:36 AM 09/17/2022 12:42 PM Care Teams Flower Shop Laborer/Designer Relationship Specialty Start Date End Date Mumtaz Larson MD [address] [facility] [address] [place] [phone] PCP - General Family Medicine 08/26/22
--- OUTSIDE RECORDS SUMMARY | 2025-06-16 09:45 | XMS_ITS | Clinical Summary ---
Author Organization Healthcare Address [address] [id number] Care Team Providers Care Enrollment Representative Name Role Phone Mumtaz Larson MD Primary Care Provider + [phone] Allergies No known active allergies Medications tamsulosin (Flomax) 0.4 MG 24 hr capsule TAKE 1 CAPSULE BY MOUTH DAILY 120 capsule 2 04/04/2021 Active Active Problems No known active problems Family History Medical History Relation Name Comments Prostate cancer Maternal Grandfather FH: prostate cancer Lymphoma Other FH: lymphoma Relation Name Status Comments Maternal Grandfather Other Social History Tobacco Use Types Packs/Day Years Used Date Smoking Tobacco: Never Smokeless Tobacco: Never Tobacco Cessation:Counseling Given: No Sex and Gender Information Value Date Recorded Sex Assigned at Not on file Legal Sex Male 8:03 PM EDT Gender Identity Not on file Sexual Orientation Not on file Last Filed Vital Signs Vital Sign Reading Time Taken Comments Blood Pressure 113/71 02/18/2022 11:20 PM EDT Pulse 78 02/18/2022 11:20 PM EDT Temperature 37.1 C (98.7 F) 02/18/2022 11:20 PM EDT Respiratory Rate 20 02/18/2022 11:20 PM EDT Oxygen Saturation 96% 02/18/2022 11:20 PM EDT RA Inhaled Oxygen Concentration - - Weight 132 kg (289 lb 14.5 oz) 03/24/2021 8:53 A M EDT Height 185.4 cm (6' 1 ) 03/24/2021 8:53 AM EDT Body Mass Index 38.25 03/24/2021 8:53 AM EDT Plan of Treatment Health Maintenance Due Date Last Done Comments [facility]-Depression Screening 1955 [facility]-Infant/Child/Adol SDOH Screenings 1955 [facility]- SDOH Screenings 1971 [facility]-Adult SDOH Screenings 1971 [facility]-DTaP,Tdap,and Td Vaccine s (1 - Tdap) 1972 CT Colonography 1998 Colonoscopy 1998 FIT-DNA 1998 FIT 1998 FOBT 1998 Sigmoidoscopy 1998 [facility]-Colorectal Cancer Screening 1998 [facility]-Zoster Vaccines (1 of 2) 2003 [facility]-Pneumococcal Vaccine: 50 + Years (2 of 2 - PPSV23) 08/03/2020 08/03/2019 [id number] Vaccine (3 - season) 2024 02/04/2021, 12/27/2020 [facility]-Influenza Vaccine (#1) 06/18/202507/22, 07/22/2017 [facility]-RSV Vaccine: 60+ Years o r (1 - 1-dose 75+ series) 2028 HPV Vaccines Aged Out No longer eligi ble based on patient's age to complete this topic [facility]-HIB Vaccines Aged Out No longer e ligible based on patient's age to complete this topic [facility]-Hepatitis A Vaccines Aged Out No longer eligible based on patient's age to complete this topic [facility]-IPV Vaccines Aged Out No longer e ligible based on patient's age to complete this topic [facility]-Rotavirus Vaccines Aged Out No lo nger eligible based on patient's age to complete this topic [place] [address] MEDICARE [employer] Care Teams Enrollment Representative Relationship Specialty Start Date End Date Mumtaz Larson MD [address] [place] [facility] [address] [place] [address] PCP - General 02/28/21
--- OUTSIDE RECORDS SUMMARY | 2025-06-16 09:45 | XMS_ITS | Clinical Summary ---
Author Organization [facility] Address [address] [place] [address] Care Team Providers Care Research Recruiter Name Role Phone Mumtaz Larson MD Primary Care Provider + [phone] Allergies No known active allergies Medications levothyroxine (SYNTHROID, LEVOTHROID) 50 MCG tablet Take 1 tablet by mouth Every Morning. Active mycophenolate (CELLCEPT) 500 MG tablet Take 6 tablets by mouth Daily. 01/04/2023 Active potassium chloride (K-DUR,KLOR-CON ) 20 MEQ CR tablet Take 1 tablet by mouth 2 (Two) Times a Day. Active fenofibrate (TRICOR) 145 MG tablet Take 1 tablet by mouth Daily. Active allopurinol (ZYLOPRIM) 300 MG tablet 1 tablet. Active Allopurinol (ZYLOPRIM PO) Take 300 mg by mouth Daily. Active DULoxetine (CYMBALTA) 60 MG capsule Take 2 capsules by mouth Daily. Active atenolol-chlort halidone (TENORETIC) 100-25 MG per tablet 0.5 tablets Daily. Active busPIRone (BUSPAR) 10 MG tablet Take 1 tablet by mouth 2 (Two) Times a Day. 01/28/2023 Active Budesonide (ENTOCORT EC) 3 MG 24 hr capsule Take 3 capsules by mouth Daily. Active omeprazole (priLOSEC) 20 MG capsule Take 1 capsule by mouth Daily. 02/24/2024 Active tamsulosin (FLOMAX) 0.4 MG capsule 24 hr capsule Take 1 capsule by mouth Daily. Active QUEtiapine (SEROquel) 200 MG tablet Take 1 tablet by mouth Every Evening. Active Inulin (FIBER CHOICE PO) Take 1 dose by mouth Daily. Active naloxone (NARCAN) 4 MG/0.1ML nasal spray Call 911. Don't prime. [place] in 1 nostril for overdose. Repeat in 2-3 minutes in other nostril if no or minimal breathing/res ponsiveness. 2 each 06/03/2024 Active Active Problems Problem Noted Date Diagnosed Date Renal mass, right 06/02/2024 Depression with anxiety 09/19/2023 Arthritis 08/11/2022 Diabetes mellitus, type II 08/11/2022 Social History Tobacco Use Types Packs/Day Years Used Date Smoking Tobacco: Former Cigarettes 1.5 15 1 970 - 1984 Smokeless Tobacco: Never Tobacco Cessation:Counseling Given: Not Answered Comments:Quit in Alcohol Use Standard Drinks/Week Comments Never 0 (1 standard drink = 0.6 oz pur e alcohol) AUDIT-C Answer Date Recorded Q1: How often do you have a drink containing alcohol? Never 06/02/2024 Q2: How many drinks containi ng alcohol do you have on a typical day when you are drinking? Patient does not drink Q3: How often do you have si x or more drinks on one occasion? Never 06/02/2024 Abuse Screen Answer Date Recorded Feels Unsafe at Home or Work/School no 06/02/2024 Feels Threatened by Someone no 05/18 Does Anyone Try to Keep You From Having Contact with Others or Doing Things Outside Your Home? no 06/02/2024 Physical Signs of Abuse Present no 06/02/2024 Housing Stability Answer Date Recorded Current Living Arrangements home 05/18 Potentially Unsafe Housing Conditions Not on lamberto e 06/02/2024 Family and Community Support Answer Osvaldo e Recorded Help with Day-to-Day Activities Not on file 07/25/2023 Lonely or Isolated Not on file 07/25/2023 Employment Answer Date Recorded Do you want help finding or keeping work or a jason b? Not on file 07/25/2023 Disabilities Answer Date Recorded Difficulty Concentrating, Remembering or Making Decisions no 06/02/2024 Difficulty Managing Errands Independently no 06/02/2024 Education Answer Date Recorded Help with school or training? Not on file Preferred Language Greek 06/01/2024 Sex and Gender Information Value Date Recorded Sex Assigned at Not on file Legal Sex Male 9:23 AM EDT Gender Identity Not on file Sexual Orientation Not on file Last Filed Vital Signs Vital Sign Reading Time Taken Comments Blood Pressure 119/82 06/03/2024 10:39 AM EDT Pulse 83 06/03/2024 10:39 AM EDT Temperature 36.9 C (98.4 F) 06/03/2024 10:39 AM EDT Respiratory Rate 16 06/03/2024 10:39 AM EDT Oxygen Saturation 95% 06/03/2024 10:39 AM EDT Inhaled Oxygen Concentration - - Weight 90.7 kg (200 lb) 06/02/2024 8:38 AM EDT Height 185.4 cm (6' 1 ) 06/02/2024 8:38 AM EDT Body Mass Index 26.39 06/02/2024 8:38 AM EDT Plan of Treatment Health Maintenance Due Date Last Done Comments COLOGUARD 1998 COLON CANCER SCREENING 5 YEA R SIGMOIDOSCOPY 1998 COLONOSCOPY 1998 [address] CANCER SCREENING 1998 CT COLONOGRAPHY 1998 FECAL OCCULT BLOOD TEST 1998 FIT Testing (1 year) 1998 ZOSTER VACCINE (1 of 2) 2003 ANNUAL PHYSICAL 02/02/2023 HEPATITIS C SCREENING 02/02/2023 COVID-19 Vaccine (3 - 2023-2 5 season) 2024 02/04/2021, 12/27/2020 INFLUENZA VACCINE 07/18/2025 08/03/2019, , 07/22/2017 TDAP/TD VACCINES (2 - Td or Tdap) 07/09/2032 022 AAA SCREEN ONCE Completed 11/05/2022, 11/05/2022 Pneumococcal Vaccine 50+ Completed 09/01/2023, 07/18 HEMOGLOBIN A1C Discontinued 06/01/2024, 12/0 10/2022, 02/01/2023, Additional history exists Medical Devices Implanted Type Area Inside Sales Engineer Device Identifier Shelf Expiration Date Model / Serial / Lot Reload [place] Endopath Gst 45mm Wht - [id number] Implanted:Qty : 1 on 06/02/2024 by Rasta Watson MD at [facility] Implant Right: Abdomen [employer] [id number] 11/17/2026 [id number] / / [id number] Stplr Tiss [id number] Lng [id number] Strl 1p/U - [id number] Implanted:Qty : 1 on 06/02/2024 by Rasta Watson MD at [facility] Implant Right: Abdomen [employer]O [employer] [id number] 02/14/2026 [id number] / / [id number] Clipapplr M/ Endo Ligaclip Rot 12mm Lg - [id number] Implanted:Qty : 1 on 06/02/2024 by Rasta Watson MD at [facility] Implant Right: Abdomen [employer] [id number] 04/16/2028 [id number] / / [id number] Kt Seal Hemos Abs Floseal Matrx 1.5/Fast/Prep 5000/Iu 10ml - [id number] Implanted:Qty : 1 on 06/02/2024 by Rasta Watson MD at [facility] Implant Right: Abdomen [employer] [id number] 03/02/2025 [id number] / / [id number] Procedures Procedure Name Priority Date/Time Associated Diagnosis Comments HEMOGLOBIN A1C Routine 06/01/2024 9:37 AM EDT from Last 3 Months or Most Recently Relevant to Health Maintenance Results * Hemoglobin A1c (06/01/2024 9:37 AM EDT) Hemoglobin A1C 5.40 4.80 - 5.60 % 06/01/2024 10:18 AM EDT [facility] Blood Venipuncture / Unknown 06/01/2024 9:37 AM EDT 06/01/2024 9:59 AM EDT Narrative [facility] - 06/01/2024 10:18 AM EDT Hemoglobin A1C Ranges: Increased Risk for Diabetes 5.7% to 6.4% Diabetes >= 6.5% Diabetic Goal < 7.0% us Rasta Watson MD LAB BLOOD ORDERABLES Vida l Result [facility]
[address] [place] [address], from Last 3 Months or Most Recently Relevant to Health Maintenance Insurance [facility] Medicare [employer] PPO Care Teams Research Recruiter Relationship Specialty Start Date End Date Mumtaz Larson MD [address] [facility] [address] [place], [place] [id number] PCP - General Family Medicine 02/09/23
--- OUTSIDE RECORDS SUMMARY | 2025-06-16 09:45 | XMS_ITS | Encounter Summary ---
Author Organization [employer] ([place], [place], [place], [place]) Address [address] [place] [address] Care Team Providers Care Accident Investigator Name Role Phone Mumtaz Larson MD Primary Care Provider + [phone] Encounter Details Date Type Department Care Team (Late st Contact Info) Description 06/01/2022 Transcribed Document [facility] [place] Family Medicine [address] [place] [address] ProviderGabriel MD [address] [place] [address] Social History Tobacco Use Types Packs/Day Years [...] Date Macario rded Speak language other than Venezuelan at home Not on file 10/29/2023 Want [...] Historical Provider, - 06/01/2022 10:59 AM CDT Broset Violence Assessment Entered On: 06/01/2022 13:24 EDT Performed On: 06/01/2022 13:22 EDT by Taylor Cordova, RN Broset Violence Assessment Broset Violence Checklist of Symptoms : None Broset Violence Symptoms Subtotal : 0 Broset Violence Symptoms Indicator : Low risk (0) Taylor Cordova RN - 06/01/2022 13:22 EDT Electronically signed by Sher[facility] Conversion Dials Inspector Cerner at 02/01/2023 6:50 PM CDT documented in this encounter Plan of Treatment Not on file documented as of this encounter Visit Diagnoses Not on filedocumented in this encounter Care Teams Accident Investigator Relationship Specialty Start Date End Date Mumtaz Larson MD [address] [facility] [address] [place] [id number] PCP - General Family Medicine 08/26/22 documented as of this encounter
--- OUTSIDE RECORDS SUMMARY | 2025-06-16 09:45 | XMS_ITS | Encounter Summary ---
Author Organization [employer] ([place], [place], [place], [place]) Address [address] [place] [address] Care Team Providers Care Tank Furnace Operator Name Role Phone Mumtaz Larson MD Primary Care Provider + [phone] Reason for Visit * Reason Comments Medication Refill Encounter Details Date Type Department Care Team (Late st Contact Info) Description 05/25/2025 Refill [facility] Neurology - [employer] [employer] [facility] [address] [place] [phone] Alex Fields MD [facility] [employer] [facility] [address] [place] [address] Myasthenia gravis without (acute) exacerbation [...] (HCC) documented in this encounter Care Teams Tank Furnace Operator Relationship Specialty Start Date End Date Mumtaz Larson MD [address] [facility] [address] [place] [phone] PCP - General Family Medicine 08/26/22 documented as of this encounter
--- OUTSIDE RECORDS SUMMARY | 2025-06-16 09:45 | XMS_ITS | Encounter Summary ---
Author Organization [employer] ([place], [place], [place], [place]) Address [address] [place] [address] Care Team Providers Care Printing Machine Operator Tape Rules Name Role Phone Mumtaz Larson MD Primary Care Provider + [phone] Encounter Details Date Type Department Care Team (Late st Contact Info) Description 06/01/2022 Transcribed Document [facility] [place] Family Medicine [address] [place] [address] ProviderGabriel MD [address] [place] [address] Social History Tobacco Use Types Packs/Day Years [...] Date Macario rded Speak language other than Georgian at home Not on file 10/29/2023 Want [...] Provider, - 06/01/2022 10:59 AM CDT ED Assessment Entered On: 06/01/2022 13:24 EDT Performed On: 06/01/2022 13:22 EDT by Taylor Cordova RN ED Quick Look Assessment Level of Consciousness : Alert, Awake Affect/Behavior : Appropriate, Calm, Cooperative Orientation : Oriented x 4 Skin Temperature : Warm Skin Description : Normal for ethnicity Taylor Cordova RN - 06/01/2022 13:22 EDT ED General-Functional Assess Information Obtained From : Patient Communication Barrier : None Primary Language : Georgian Any Spiritual/Cultural Needs or Requests : No Currently in Unsafe Situation : No Taylor Cordova RN - 06/01/2022 13:22 EDT Social Habits Smoking Status : Former smoker, quit more than 30 days ago Smokeless Tobacco Status : Never Desires Tobacco Cessation Calc : 0 Taylor Cordova RN - 06/01/2022 13:22 EDT Social History (As Of: 06/01/2022 13:24:02 EDT) Tobacco: Former smoker, quit more than 30 days ago Smoking Status. Never Smokeless Tobacco Status. None Smokeless Tobacco Use History. Last Used: quit in the 80s . (Last Updated: 09/27/2020 10:27:51 EST by Miguel Angel Calloway, Hanh) Alcohol: Alcohol Use History No. Use in Last 12 Months: No. (Last Updated: 09/27/2020 10:27:51 EST by Miguel Angel Calloway, Rn) Substance Abuse: Drug Use Hx: No. Use in Last 12 Months: No. (Last Updated: 09/27/2020 10:27:51 EST by Miguel Angel Calloway, Rn) Gastrointestinal ED Gastrointestinal Assessment WDL : WDL with exceptions (Comment: pt c/o difficulty breathing X 3 days. pt states eating makes symptoms worse. pt denies any abd pain, diarrhea or constipation. [Taylor Cordova RN - 06/01/2022 13:22 EDT] ) Taylor Cordova RN - 06/01/2022 13:22 EDT Electronically signed by [facility] Conversion Admitting Supervisor Cerner at 02/01/2023 6:58 PM CDT documented in this encounter Plan of Treatment Not on file documented as of this encounter Visit Diagnoses Not on filedocumented in this encounter Care Teams Printing Machine Operator Tape Rules Relationship Specialty Start Date End Date Mumtaz Larson MD [address] [place] [facility] [address] [place] [address] PCP - General Family Medicine 08/26/22 documented as of this encounter
--- OUTSIDE RECORDS SUMMARY | 2025-06-16 09:45 | XMS_ITS | Encounter Summary ---
Author Organization [employer] ([place], [place], [place], [place]) Address [address] [place] [address] Care Team Providers Care Respiratory Therapy Manager Name Role Phone Mumtaz Larson MD Primary Care Provider + [phone] Encounter Details Date Type Department Care Team (Late st Contact Info) Description 06/01/2022 Transcribed Document [facility] Family Medicine [address] [place] [address] ProviderGabriel MD [address] [place] [address] Social History Tobacco Use Types Packs/Day Years [...] Date Macario rded Speak language other than Swedish at home Not on file 10/29/2023 Want [...] Conversion Note - Historical Provider, - 06/01/2022 5:02 PM CDT Patient: TIEN GARCIA Age: 66 years Sex: Male : 1955 Associated Diagnoses: None Author: Pooja Buckner, Resident Pharmacist HPI: 66yo M with PMH myasthenia gravis presents to [facility] ED with complaints of R elbow tenderness, [...] 24 hrs) Last Charted Minimum Maximum Temp 98.1 (JUN 01:09) 98.1 (JUN 01:) 98.1 (JUN 01:) Mon HR 82 (JUN 01 16:00) 82 (JUN 01 16:00) 84 (JUN 01 15:58) Periph HR 75 (JUN 01 14:55) 75 (JUN 01 14:55) 78 (JUN 01 11:09) Resp Rate 18 (JUN 01 14:55) 18 (JUN 01 11:09) 18 (JUN 01 11:09) SBP H 176 (JUN 01 16:00) 93 (JUN 01 11:09) H 176 (JUN 01 16:00) DBP 84 (JUN 01 16:00) 65 (JUN 01 11:09) 84 (JUN 01 16:00) MAP 120 (JUN 01 15:58) 120 (JUN 01 15:58) 120 (JUN 01 15:58) SpO2 96 (JUN 01 15:58) 96 (JUN 01 15:58) 98 (JUN 01 14:55) Labs (Last four charted values) WBC H 12.5 (JUN 01) HB 16.5 (JUN 01) HCT 48.4 (JUN 01) Plt H 406 (JUN 01) Na L 131 (JUN 01) K L 3.2 (JUN 01) Cl L 101 (JUN 01) CO2 L 20 (JUN 01) BUN 14 (JUN 01) Cr 0.80 (JUN 01) Glu R H 109 (JUN 01) Ca 9.1 (JUN 01) Lactic 1.4 (JUN 01) AST 18 (JUN 01) ALT 25 (JUN 01) ALK P 58 (JUN 01) T Bili 0.8 (JUN 01) PTN 7.1 (JUN 01) ALB L 3.3 (JUN 01) Intake & Output Totals Last 24 Hours (7a-7a) Input Total: 0 mL Output Total: 0 mL Balance: 0 mL Microbiology: Blood Cx x2 - pending Vancomycin Levels: 06/03 0400 trough = [ORDERED] A/P: 1) Rx consulted to dose vancomycin and zosyn for cellulitis. Based on pts age, weight, and renal function will load pt with 1750mg (18 mg/kg) IV vancomycin x1 tonight and schedule 1250mg (13 mg/kg) IV vancomycin q12h. 2) Will order a trough on 06/03 prior to the 4th dose of this regimen. Goal trough 12-20 mcg/mL. Hold dose for level >20 mcg/mL. 3) Pt estimated CrCl 91 mL/min/m2, will load pt with 4.5gm IV zosyn x1 now and schedule 3.375gm zosyn q6h. 4) Other medications are adjusted appropriately at this time. Will monitor for changes and make adjustments as necessary. Rx will follow, Pooja Buckner, MarlenaD Solar Project Coordination Specialist #[phone] documented in this encounter Plan of Treatment Not on file documented as of this encounter Visit Diagnoses Not on filedocumented in this encounter Care Teams Respiratory Therapy Manager Relationship Specialty Start Date End Date Mumtaz Larson MD [address] [place] [facility] [address] [place], [place] [phone] PCP - General Family Medicine 08/26/22 documented as of this encounter
--- OUTSIDE RECORDS SUMMARY | 2025-06-16 09:45 | XMS_ITS | Encounter Summary ---
Author Organization [employer] ([place], [place], [place], [place]) Address [address] [place] [address] Care Team Providers Care Assistant Cook Name Role Phone Mumtaz Larson MD Primary Care Provider + [phone] Encounter Details Date Type Department Care Team (Late st Contact Info) Description 06/01/2022 Transcribed Document [facility] [facility] [place] [address] [place] [address] ProviderGabriel MD [address] [place] [address] Social History Tobacco Use Types Packs/Day Years [...] Conversion Note - Historical Provider, - 06/01/2022 11:18 PM CDT Patient: TIEN GARCIA Age: 66 Years Sex: Male : 1955 Subjective I spoke to the nurse taking care of the patient this evening. The nurse tells me that the patient had great difficulty in swallowing his pills with thickened water. Based on this information, will make him NPO without any exceptions and will start IV fluids. Patient may very well need a Corpak or consideration of an eventual PEG tube. If he is unable to take Mestinon by mouth , he may need the IV form of this medication. Medications Inpatient allopurinol, 300 mg= 1 Tab, [...] mL, IV Push, Q15Min, PRN Flonase, 1 [place], Nostrils Both, Daily glucagon, 1 mg= 1 mL, IntraMuscular, Q15Min, PRN glucose 4 g oral tablet, chewable, 16 Gram= 4 Tab, Chew, Q15Min, PRN glucose 40% oral gel, 15 Gram= 37.5 mL, Oral, Q15Min, PRN insulin regular sliding scale, Scale A, SubCutaneous, Q6H levothyroxine, 50 mcg= 1 Tab, Oral, Daily Lovenox, 40 mg= 0.4 mL, SubCutaneous, [id number] Mestinon, 60 mg= 5 mL, Oral, QID [...] Sodium Chloride 0.9% intravenous solution 100 mL documented in this encounter Plan of Treatment Not on file documented as of this encounter Visit Diagnoses Not on filedocumented in this encounter Care Teams Assistant Cook Relationship Specialty Start Date End Date Mumtaz Larson MD [address] [facility] [address] [place] [phone] PCP - General Family Medicine 08/26/22 documented as of this encounter
--- OUTSIDE RECORDS SUMMARY | 2025-06-16 09:45 | XMS_ITS | Encounter Summary ---
Author Organization [employer] ([place], [place], [place], [place]) Address [address] [place] [address] Care Team Providers Care Care Team Assistant Name Role Phone Mumtaz Larson MD Primary Care Provider + [phone] Reason for Visit * Reason Comments Medication Refill Encounter Details Date Type Department Care Team (Late st Contact Info) Description 01/19/2024 Refill [facility] Neurology - [address] [facility] [address] [place] [phone] Alex Fields MD [facility] [address] [place] [address] Myasthenia gravis without (acute) exacerbation [...] (HCC) documented in this encounter Care Teams Care Team Assistant Relationship Specialty Start Date End Date Mumtaz Larson MD [address] [facility] [address] [place] [phone] PCP - General Family Medicine 08/26/22 documented as of this encounter
--- OUTSIDE RECORDS SUMMARY | 2025-06-16 09:45 | XMS_ITS ---
Author Organization [employer] ([place], [place], [place], [place]) Address [address] [place] [address] Care Team Providers Care Lamp Mechanic Name Role Phone Mumtaz Larson MD Primary Care Provider + [phone] Active Problems Problem Noted Date Diagnosed Date [...] apnea 08/11/2022 Prostate cancer 08/11/2022 Thyroid disease Current Oncology Plans No current plan information found. Past Plans Radiation Treatments * No radiation treatments are documented for this patient in [facility]. Treatments may have been administered in another system.
--- NOTE | 2025-06-16 09:50 | CT_ITS ---
PROCEDURE INFORMATION: Exam: CT Abdomen And Pelvis With Contrast Exam date and time: 06/16/2025 11:28 AM Age: 69 years old Clinical indication: Nausea; Abdominal pain; Prior surgery; Surgery date: 6+ months; Surgery type: Gb & appendix removed. 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 Radiation optimization: All CT scans at this facility use at least one of these dose optimization techniques: automated exposure control; mA and/or kV adjustment per patient size (includes targeted exams where dose is matched to clinical indication); or iterative reconstruction. Contrast material: ISOVUE; Contrast volume: 75 ml; Contrast route: IV; COMPARISON: CT ABDOMEN WO/W CON 04/24/2024 1:51 PM FINDINGS: Heart: Stable large pericardial effusion measuring 2.6 cm at the apex. Liver: Normal. No mass. Gallbladder and biliary ducts: Previous cholecystectomy. Pancreas: Normal. No ductal dilation. Spleen: Normal. No splenomegaly. Adrenal glands: Normal. No mass. Kidneys and ureters: Previous right nephrectomy. Stable 4 mm cortical renal cyst superior pole left kidney. No hydronephrosis. Stomach and bowel: Segment of wall thickening at the proximal descending colon, consistent with moderate acute diverticulitis. No evidence of perforation or drainable collection. Moderate pericolonic inflammatory stranding. No bowel obstruction. Appendix: No evidence of appendicitis. Intraperitoneal space: Unremarkable. No free air. No significant fluid collection. Vasculature: Unremarkable. No abdominal aortic aneurysm. Lymph nodes: Unremarkable. No enlarged lymph nodes. Urinary bladder: Unremarkable as visualized. Reproductive: Brachytherapy seeds in the prostate gland. Bones/joints: Fusion L4-L5. Grade 1 anterolisthesis at this level. No acute fracture. Soft tissues: Unremarkable. IMPRESSION: 1. Stable large pericardial effusion measuring 2.6 cm at the apex. 2. Segment of wall thickening at the proximal descending colon, consistent with moderate acute diverticulitis. No evidence of perforation or drainable collection.
[2025-06-16 10:23] LABS: Hematocrit 46.6 % (42.0-52.0); Hemoglobin 14.8 g/dL (14.1-18.0); Immature Granulocytes % 0.6 %; Mean Corpuscular HGB Conc 31.8 g/dL (31.8-35.4); Mean Corpuscular Hemoglobin 26.7 pg (27.0-31.2); Mean Corpuscular Volume 84.1 fl (80-94); Nucleated Red Blood Cells % 0 %; Platelet Count 380 K/mm3 (142-424); Red Blood Count 5.54 M/mm3 (4.60-6.20); Red Cell Distribution Width-SD 41.5 fL; White Blood Count 8.8 K/mm3 (4.8-10.8)
[2025-06-16 10:36] LABS: Alanine Aminotransferase 18 U/L (12-78); Albumin Level 4.7 g/dl (3.5-5.0); Albumin/Globulin Ratio 1.6 (1.1-1.8); Alkaline Phosphatase 70 U/L (38-126); Anion Gap 15.6 mEq/L (5-15); Aspartate Amino Transferase 33 U/L (17-59); Bilirubin,Total 1.0 mg/dl (0.2-1.3); Blood Urea Nitrogen 17 mg/dl (9-20); Calcium 10.1 mg/dl (8.4-10.2); Carbon Dioxide 28 mmol/L (22.0-30.0); Chloride 100 mmol/L (98-107); Creatinine Clearance Estimated 67 mL/min (50-200); Creatinine,Serum 1.30 mg/dl (0.66-1.25); Estimated Glomerular Filt Rate 54 ml/min (>60); GFR (African American) 66 ML/MIN (>60); Globulin 2.9 g/dL (1.3-3.2); Glucose 114 mg/dl (74-100); Lipase 120 U/L (23-300); Potassium 3.6 mmoL/L (3.5-5.1); Sodium 140 mmol/L (136-145); Total Protein,Serum 7.6 g/dl (6.3-8.2)
[2025-06-16 10:58] LABS: Microscopic, Urine URINE MICROSCOPIC (MICROSCOPIC)
[2025-06-16] MEDS: SODIUM CHLORIDE 0.9% 10ML SYR (RAD ONLY) 10 ML IV (11:30)
[2025-06-16] MEDS: IOPAMIDOL-370 (76%);100ML BOTTLE 75 ML IV (11:30)
--- NOTE | 2025-06-16 11:50 | PC.NURSE ---
I called radiology to inquire on the pts results of his CT. Lakeshia states the radiologist is in the scan reading it at this time.
[2025-06-16 12:05] LABS: Glucose,Urine (UA) Negative (Negative); Ketones,Urine TRACE (Negative); Leukocyte Esterase,Urine Negative (Negative); PH,Urine 5.5 (5.0-8.5); Protein,Urine 2+ (Negative); Specific Gravity, Urine 1.025 (1.005-1.030); Urobilinogen,Urine 1.0 EU/dl (0.2)
--- NOTE | 2025-06-16 12:06 | HMH.EDGENADL ---
Discharge Plan Disposition Patient Disposition: Home, Self-Care Condition: Good Prescriptions Prescriptions: New amoxicillin-pot clavulanate 875-125 mg tablet 1 tab PO Q12H Qty: 10 0RF No Action tamsulosin 0.4 mg capsule PO Patient Comments: TAKE ONE CAPSULE BY MOUTH EVERY DAY allopurinol 300 mg tablet 300 mg PO DAILY fenofibrate nanocrystallized 145 mg tablet 145 mg PO DAILY levothyroxine 50 mcg capsule 50 mcg PO DAILY omeprazole 20 mg capsule,delayed release(DR/EC) 20 mg PO DAILY duloxetine 60 mg capsule,delayed release(DR/EC) 120 mg PO DAILY quetiapine 100 mg tablet 100 mg PO DAILY mycophenolate mofetil 500 mg tablet 500 mg PO BID buspirone 10 mg tablet 10 mg PO BID promethazine 25 mg tablet 25 mg PO Q6H PRN (Reason: nausea and vomiting) Qty: 16 0RF Referrals Follow up/Referrals: Mumtaz Larson MD [Primary Care Provider, Medical] - See instructions Activity Restrictions/Add. Instructions Additional Instructions/Restrictions: Please ensure you are drinking plenty of fluids at home. I want you to follow up with primary care in 1-2 weeks to have a repeat renal function test performed. For your diverticulitis I want you to take Augmentin twice daily for the next 5 days. If you have any new or worsening symptoms please return Clinical Impressions Clinical Impression: Acute diverticulitis Instructions Patient Instructions: Diverticulitis Print Language Print Language: Azeri Discharge ED Provider: Aguilar Bowman Adult HPI General Chief complaint: Abdominal Pain Stated complaint: abd. pain, nausea Time Seen by Provider: 06/16/25 09:30 Mode of Arrival: Ambulatory Source of Information: Patient Description of Symptoms (Recalled from ER Triage Doc. by RN): pt presents to the ED with left sided abdominal tenderness to and generalized lower back pain that started Wednesday. pt reports that he has chronic nausea. Denies vomiting. Year ago the pt had a small stone in his left kidney. Unsure if he has passed it. No recent fevers. Denies chest pain and shortness of breath. History of Present Illness HPI narrative: This is a 69-year-old male patient, with past medical history of resolved hypertension and resolved diabetes as well as myasthenia gravis and renal cell carcinoma status post right nephrectomy, who is presenting to the emergency department today for evaluation of left lower quadrant abdominal pain. Patient states that he has felt some tenderness in his left flank as well. He has not had any diarrhea, constipation, hematochezia, or melena. No bright red blood per rectum. He tells me that he has struggled with chronic nausea over the course of the last 2 years, however he has not had any increase in nausea from baseline and no vomiting. He has experienced some anorexia in association with his symptoms. He is not having chest pain or shortness of breath. No lower extremity erythema or edema Related Data Home Medications ?Medication ?Instructions ?Recorded ?Confirmed allopurinol 300 mg tablet 300 mg PO DAILY gout 05/20/22 04/18/24 duloxetine 60 mg capsule,delayed 120 mg PO DAILY mood 05/20/22 04/18/24 release fenofibrate nanocrystallized 145 145 mg PO DAILY HLD 05/20/22 04/18/24 mg tablet levothyroxine 50 mcg capsule 50 mcg PO DAILY hypothyroid 05/20/22 04/18/24 mycophenolate mofetil 500 mg tablet 500 mg PO BID immunosuppresant 05/20/22 04/18/24 omeprazole 20 mg capsule,delayed 20 mg PO DAILY GERD 05/20/22 04/18/24 release quetiapine 100 mg tablet 100 mg PO DAILY Anxiety 05/20/22 04/18/24 buspirone 10 mg tablet 10 mg PO BID GI 06/28/23 04/18/24 tamsulosin 0.4 mg capsule mg PO 04/18/24 04/18/24 Previous Rx's ?Medication ?Instructions ?Recorded promethazine 25 mg tablet 25 mg PO Q6H PRN nausea and 04/09/24 vomiting #16 tabs amoxicillin 875 mg-potassium 1 tab PO Q12H #10 tabs 06/16/25 clavulanate 125 mg tablet Allergies Allergy/AdvReac Type Severity Reaction Status Date / Time Tetracyclines Allergy Unknown Verified 04/18/24 09:09 [facility] Disclaimer: The information contained in this section may have been updated after the patient was seen, as this information can be updated by other users. Medical History History of myasthenia gravis Hypothyroidism Hyperlipemia GERD (gastroesophageal reflux disease) Hypertension Type 2 diabetes mellitus Surgical History History of laparoscopic cholecystectomy History of arthroscopy of left knee History of appendectomy History of colonoscopy History of umbilical hernia repair Family History Other No significant family history Social History Smoking Status: Never smoker second hand exposure: No alcohol intake: never substance use type: marijuana current occupational status: retired Travel in the last 8 weeks?: None household members: spouse housing: house caffeine: Yes Have you lived/traveled outside US in past 30 days?: No Contact w/someone who lives/traveled outside US past 30 days?: No Exposure to someone with infectious disease in past 14 days?: No Do you have a fever (greater than 100.4 F or 38 C)?: No Have you tested positive for COVID-19?: No Exposed to someone with COVID-19 in past 14 days?: No Do you have a sore throat?: No Do you have a cough?: No Do you have any weakness?: No Do you have any diarrhea?: No Are you experiencing any unusual bleeding?: No Do you have any muscle aches/pain?: No Do you have any abdominal pain?: Yes Are you experiencing loss of taste or smell?: No Other Medical History Have you received the Flu Vaccine for this season: No Have you received the Pneumonia Vaccine: Yes ROS Obtained: Yes Systems reviewed as appropriate & no additional complaints except as documented Physical Exam General General appearance: other (See MDM) Respiratory Respiratory exam: Present other (See MDM) Cardiovascular Cardiovascular exam: Present other (See MDM) Neurological Exam Neurological exam: Present other (See MDM) Medical Decision Making Medical Records Medical records reviewed: Yes I reviewed the patient's medical records. Screening: Per USPSTF and CDC recommendations, given the prevalence of disease in our region, it is our hospital?s policy to screen for HIV and viral Hepatitis for all patients aged 18 and over and those with ongoing risk factors. Jb Inquiry Pt receiving controlled substance: No Jb was queried for this patient: No Vital Signs: 06/16/25 09:30 06/16/25 09:45 06/16/25 09:57 Temperature 98.8 F Temperature Source Oral Pulse Rate 111 H 110 H Pulse Rate [Right] 112 H Respiratory Rate 18 18 Blood Pressure 129/75 129/75 Blood Pressure [Right Arm] 124/91 H Blood Pressure Mean [Right Arm] 102 Blood Pressure Source Automatic Cuff Blood Pressure Source [Right Arm] Automatic Cuff Blood Pressure Position Supine Blood Pressure Position [Right Arm] Supine 02 Sat by Pulse Oximetry 97 97 98 Oxygen Delivery Method Room Air Room Air 06/16/25 10:17 Temperature Temperature Source Pulse Rate 93 H Pulse Rate [Right] Respiratory Rate Blood Pressure 109/76 L Blood Pressure [Right Arm] Blood Pressure Mean [Right Arm] Blood Pressure Source Blood Pressure Source [Right Arm] Blood Pressure Position Blood Pressure Position [Right Arm] 02 Sat by Pulse Oximetry 100 Oxygen Delivery Method Lab Data Lab Results 06/16/25 09:37: WBC 8.8, RBC 5.54, Hgb 14.8, Hct 46.6, MCV 84.1, MCH 26.7 L, MCHC 31.8, RDW 13.4, Plt Count 380, MPV 9.7, Neut % (Auto) 67.3, Lymph % (Auto) 23.7, Karnes % (Auto) 7.1, Eos % (Auto) 0.7, Baso % (Auto) 0.6, Neut # (Auto) 5.9, Lymph # (Auto) 2.1, Karnes # (Auto) 0.6, Eos # (Auto) 0.1, Baso # (Auto) 0.1, Sodium 140, Potassium 3.6, Chloride 100, Carbon Dioxide 28, Anion Gap 15.6 H, BUN 17, Creatinine 1.30 H, Estimated Creat Clear 67, Estimated GFR 54 L, Est GFR ( Amer) 66, Glucose 114 H, Calcium 10.1, Total Bilirubin 1.0, AST 33, ALT 18, Alkaline Phosphatase 70, Total Protein 7.6, Albumin 4.7, Globulin 2.9, Albumin/Globulin Ratio 1.6, Lipase 120 06/16/25 09:37 06/16/25 09:37 Orders (Tests/Meds): ED MEDICATIONS Generic Name Dose Route Start Last Admin Trade Name Freq PRN Reason Stop Dose Admin Sodium Chloride 10 ml 06/16/25 11:28 06/16/25 11:30 Sodium Chloride 0.9% 10ml Syr (Rad Only) IV 07/16/25 11:27 10 ml NEEDED PRN Administration Maintain IV Site Discontinued Medications Generic Name Dose Route Start Last Admin Trade Name Sierra PRN Reason Stop Dose Admin Iopamidol 75 ml 06/16/25 11:28 06/16/25 11:30 Iopamidol-370 (76%);100ml Bottle IV 06/16/25 11:29 75 ml ONCE ONE Administration ORDERS Category Date Time Status CT abdomen pelvis w con Stat Cat Scan 06/16/25 09:50 Completed CBC w/Auto Diff [Complete Blood Count Auto Diff] Stat Lab 06/16/25 09:37 Completed CMP [Comprehensive Metabolic Panel] Stat Lab 06/16/25 09:37 Completed HIV Combo Stat Lab 06/16/25 09:37 Received Hepatitis C Ab Qual. W/ RFX Stat Lab 06/16/25 09:37 Received Lipase Stat Lab 06/16/25 09:37 Completed Urinalysis and Microscopic Stat Lab 06/16/25 10:00 Received Urine Culture Stat Micro 06/16/25 10:00 Received Medical Decision Narrative: In summary, this is a 69-year-old male patient who is presenting to the emergency department today for evaluation of left lower quadrant abdominal pain with anorexia and nausea. Comorbidities include a past medical history of hypertension and diabetes which have both resolved as well as myasthenia gravis and right-sided renal cell carcinoma status post nephrectomy On initial evaluation of the patient they were resting comfortably in no acute distress and nontoxic in appearance. They are hemodynamically stable, saturating well room air, and are neurologically intact. On physical examination the patient is alert and appropriately interactive with a GCS of 15. Heart and lungs are clear to auscultation bilaterally. Left lower quadrant is tender to palpation without any rebound tenderness or obvious signs of lorin peritonitis. He does have left-sided flank tenderness to percussion. No tenderness of the hip or pelvis. No lower extremity erythema or edema. Differential diagnosis includes diverticulitis, diverticular abscess, colitis, pancreatitis, nephrolithiasis, ureterolithiasis, urinary tract infection, among others Workup was initiated with hematologic labs as well as urinalysis and CT scan of the abdomen and pelvis with contrast. Labs demonstrate no evidence of leukocytosis or actionable anemia. There is no significant electrolyte derangements. Creatinine is mildly elevated from prior but is not greater than 1.5 times the baseline to be consistent with acute kidney injury. CT scan of the abdomen and pelvis was personally interpreted by and demonstrated no evidence of ureteral stones or hydronephrosis. Official radiology read is in agreement states that the patient does have a stable pericardial effusion at the apex from prior scans in addition to new segmental wall thickening at the proximal descending colon consistent with moderate acute diverticulitis with no evidence of perforation or drainable fluid collection. On repeat assessment of the patient he was resting comfortably and was in no acute distress. I have informed him of his results. Given that this is not designated is uncomplicated diverticulitis and he is of advanced age with significant comorbidities I do feel it is most appropriate to treat his diverticulitis with a 5-day course of Augmentin. Patient acknowledges understanding of this plan and is amenable. At this time all questions have been answered and all parties are agreeable with the decision to discharge Critical Care Critical Care Time Critical Care Time: No
[2025-06-16 12:15] LABS: Bilirubin,Urine Negative (Negative); Color,Urine Dark Yellow (Yellow)
[2025-06-16 12:21] LABS: Squamous Epithelial Cell,Urine Occasional #/hpf (0-5); WBC,Urine Occasional #/hpf (0-3)
[2025-06-16 12:51] LABS: Hepatitis C Ab Qual. W/ RFX NEGATIVE (Negative)
== END 2025-06-16 12:25 | disposition home or self-care (01) ==
PROVIDERS: Emergency Provider Student in an Organized Health Care Education/Training Program; PCP Family Medicine
DX: K57.92 Diverticulitis of intestine, part unspecified, without perforation or abscess without bleeding (principal); I10 Essential (primary) hypertension; E78.5 Hyperlipidemia, unspecified; E11.9 Type 2 diabetes mellitus without complications
CPT/HCPCS: 74177; 80053; 81001; 83690; 85025; 86803; 87086; 87389; 99284; Q9967

== ENCOUNTER 2025-09-15 10:29 | Outpatient (CLI) | payer MEDICARE, SELFPAY ==
--- OUTSIDE RECORDS SUMMARY | 2024-04-06 06:00 | XMS_ITS ---
Author Organization [facility] Address [address] [place] [id number] Care Team Providers Care Day Care Aide Name Role Phone Mumtaz Larson Primary Care Provider Allergies No Known Allergies Results Component Value Reference Range Notes CBC Venipuncture (in house) Reviewed date:04/07/2024 08:12:06 AM Interpretation: Performing Lab: Notes/Report: wbc 6.5 3.5 - 10 lymph 23.9 15 - 50 mid 5.4 2 - 15 gran 70.7 35 - 80 rbc 4.93 3.5 - 5.5 hgb 14.2 11.5 - 16.5 hct 43.9 35 - 55 mcv 88.8 75 - 100 mch 28.8 25 - 35 mchc 32.4 31 - 38 platlet 352 100 - 400 P-Amylase Reviewed date:04/07/2024 08:12:06 AM Interpretation:25 Performing Lab: Notes/Report: CLIA: [id number] Kai Mock MD, Head Of Commission Department [address] [place] [address] , [place] [address] Test performed by [facility] Amylase 25 28-100 U/L P-Comprehensive Metabolic Pa choco (CMP) Reviewed date:04/07/2024 08:12:06 AM Interpretation:Normal Performing Lab: Notes/Report: Test performed by [facility] [address] [place] [address] , [address], [place] [address] Kai Mock MD, Head Of Commission Department CLIA: [id number] Sodium 143 135-145 mEq/L Potassium 4.6 3.5-5.3 mEq/L Chloride 105 97-108 mEq/L CO2 27 22-32 mEq/L Glucose 83 65-99 mg/dL BUN 11 8-23 mg/dL Creatinine 0.88 0.70-1.30 mg/dL Calcium 9.3 8.6-10.4 mg/dL eGFR by Creatinine 92 >59 mL/min/1.73m2 Protein 6.0 6.0-8.3 g/dL Albumin 4.2 3.5-5.3 g/dL Alkaline Phosphatase 52 40-129 IU/L ALT (SGPT) 10 <5-55 IU/L AST (SGOT) 15 <5-46 IU/L Bilirubin, Total 0.4 <0.2-1.2 mg/dL A/G Ratio 2.3 1.1-2.5 mg/dL P-Lipase Reviewed date:04/07/2024 08:12:06 AM Interpretation:Normal Performing Lab: Notes/Report: Test performed by [facility] [address] [place] [address] , [place] [address] Kai Mock MD, Head Of Commission Department CLIA: [id number] Lipase 20.0 13.0-60.0 u/L P-TSH reflex to FT4 Reviewed date:04/07/2024 08:12:06 AM Interpretation:Normal Performing Lab: Notes/Report: Test performed by [facility] [address] [place] [address] , [place] [address] Kai Mock MD, Head Of Commission Department CLIA: [id number] TSH reflex to FT4 1.78 0.43-5.25 mU/L REASON FOR VISIT nauseated Medications Medication SIG (Take, Route, Frequency, Duration) Notes Start Date End Date Status Allopurinol 300 mg TAKE ONE TABLET BY MOUTH EVERY DAY; Duration: 90 days Active Fenofibrate 145 mg TAKE ONE TABLET BY MOUTH EVERY DAY; Duration: 90 days Active Tamsulosin HCl 0.4 MG 1 capsule Orally O nce a day; Duration: 90 days 09/01/2023 Active QUEtiapine Fumarate 200 MG 1 tab(s) oral ly once a day (in the evening); Duration: 90 days Active Levothyroxine Sodium 50 MCG 1 tab(s) orally once a day; Duration: 90 days Active Budesonide 3 MG 3 capsules Orally On ce a day in the evening Active Align 4 MG as directed Orally Active FiberCon 625 MG 1 tablets as needed Orally once daily Active CellCept 500 MG 3 tablet orally 2 times a day Active Omeprazole 20 MG 1 cap(s) orally once a day; Duration: 90 days Active metFORMIN HCl ER 500 MG 1 tab(s) orally once a day Not-Taking busPIRone HCl 10 MG 1 tablet Orally Twic e a day Active DULoxetine HCl 60 mg TAKE TWO CAPSULES B Y MOUTH ONCE DAILY; Duration: 90 days Active Ondansetron 4 MG 1 tablet on the tong ue and allow to dissolve Orally Two times a day; Duration: 30 day(s) 04/06/2024 Active Vital Signs Blood pressure systolic 118 mm Hg 04/06/20 24 Blood pressure diastolic 72 mm Hg 024 Heart Rate 98 /min 04/06/2024 Height 73.50 in 04/06/2024 Weight 217.4 lbs 04/06/2024 BMI 28.29 kg/m2 04/06/2024 Encounters Encounter Location Date Provider Diagnosis [facility] [address] [facility] [address] [facility] [address] [place] [id number] 04/06/2024 Mumtaz Larson Chronic nausea R11.0 and Generalized abdominal pain R10.84 Assessments Encounter Date Diagnosis (ICD Code) Assessment Notes Treatment Notes Treatment Clinical Notes Section Notes 04/06/2024 Chronic nausea (ICD-10 - R11.0) 04/06/2024 Generalized abdominal pain (ICD-10 - R10.84) Plan Of Treatment Medication Medication Name Sig Start Date Stop Date Notes Ondansetron 4 MG 1 tablet on the tong ue and allow to dissolve Orally Two times a day; Duration: 30 day(s) 04/06/2024 Next Appt Details Follow Up: via phone to repo rt test results, Reason: Provider Name:Mumtaz kee, 09/18/2025 10:15:00 AM, [address] [facility] [address] [facility], [address], [place], [id number], Provider Name:Mumtaz kee, 02/14/2026 09:30:00 AM, [address] [place] [address] [address] [facility], [address], [place], [id number], Progress Notes * Tien GARCIAOB:1955 (69 yo M)Acc No.[id number]:04/06/2024 Progress Notes Patient: Tien ERAL Provider: Jorge Larson M.D. :1955 A ge:68 Y S ex:Male Date:04/06/2024 Address:[address] [place] [address] [place] [address] [id number] Subjective: * Chief Complaints: * 1 . Nauseated. * HPI: G astroenterology: 68 year old male presents with c/o Nausea P t complains of ongoing nausea, states this has been going on about a year and a half. Pt states nausea is worse in the evening and he does vomit at times. Pt states he has had cholecystectomy and has read that nausea could be related to that. * ROS: C ARDIOLOGY: no D izziness. n o C hest pain. D ERMATOLOGY: no R ana. n o H gemma. U ROLOGY: no D ifficulty urinating. n o B lood in urine. * Medical History: H ypertension, Type 2 Diabetes , Hyperlipidemia, Acid Reflux, Hiatal Hernia, Gout, Depression, Psoriatic Arthritis, Chronic Diarrhea, GI evaluation 2015, Dx with Microscopic colitis, Prostate Cancer - Brackytherapy, seed implants - Jennifer - Dr. Davenport dx 08/2015, Lumbar Disc Disease, Lumbar Facet Arthropathy, 30 Year Smoking Hx, Quit in 1994, Colon Polyps, Sleep Apnea, Myasthenia Gravis, 2021. * Surgical History: A ppendectomy 2004, Umbilical Hernia , LT Knee 1999, 2000, Finger Reattachment , LT Knee Scope, Bone Chip Removal 02/2007, Colonoscopy 2005, 2007, 2012, 2014, 2014, Prostate Biopsy 09/16/2015, Brachy Therapy - Prostate Implant 12/2015, Oral Surgery 06/2018, Nerve Decompression and Lumbar Fusion- [facility] 10/02/2021, Gastric Tube 05/2022, [facility]- right elbow infection debridement 02/2023. * Hospitalization/Major Diagno stic Procedure: D enies Past Hospitalization. * Family History: F ather: alive. M other: alive, basal cell skin cancer. 2 brother(s) , 2 sister(s) . 1 son(s) , 1 daughter(s) . . * Social History: C URRENT TOBACCO USE S moking Status: Patient does NOT smoke. C affeine: yes, frequency:occasionally. Exercise: no. Home smoke detector use: yes. Marital Status: . Past smoking status: no, Smoking status: Does not smoke. Recreational drug use: no. 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 * Medications: T aking busPIRone HCl 10 MG Tablet 1 tablet Orally Twice a day , Taking Align 4 MG Capsule as directed Orally , Taking Budesonide 3 MG Capsule Delayed Release Particles 3 capsules Orally Once a day in the evening , Taking FiberCon 625 MG Tablet 1 tablets as needed Orally once daily , Taking CellCept 500 MG Tablet 3 tablet orally 2 times a day , Taking Omeprazole 20 MG Capsule Delayed Release 1 cap(s) orally once a day , Taking Levothyroxine Sodium 50 MCG Tablet 1 tab(s) orally once a day , Taking Allopurinol 300 mg Tablet TAKE ONE TABLET BY MOUTH EVERY DAY , Taking Fenofibrate 145 mg Tablet TAKE ONE TABLET BY MOUTH EVERY DAY , Taking Tamsulosin HCl 0.4 MG Capsule 1 capsule Orally Once a day , Taking QUEtiapine Fumarate 200 MG Tablet 1 tab(s) orally once a day (in the evening) , Taking DULoxetine HCl 60 mg Capsule Delayed Release Particles TAKE TWO CAPSULES BY MOUTH ONCE DAILY , Not-Taking metFORMIN HCl ER 500 MG Tablet Extended Release 24 Hour 1 tab(s) orally once a day , Medication List reviewed and reconciled with the patient * Allergies: N .K.D.A. Objective: * Vitals: W t:217.4, Temp:97.9, BP:118/72, HR:98, Nurse:marly, Ht: 73.50, BMI:28.29. * Examination: G astroenterology: General Appearance: p leasant, NAD. O ral cavity: n ormal. S clera: a nicteric. H eart sounds: r egular, normal S1 S2. L ungs: c lear, no rales or wheezes. A bdomen: B S present, soft, some epigastric and LUQ tenderness to palpation, no guarding or rigidity. Assessment: * Assessment: 1. C hronic nausea - R11.0 (Primary) 2 . G eneralized abdominal pain - R10.84 Plan: * Treatment: Value Reference Range A mylase 25 L 28-100 - U/L * Yesica Tapia 04/07/2024 8:10 :08 AM >See phone encounter ?LAB: P-Lipase (Collection Date & Time - 04/06/2024 10:35 AM)?Normal* Value Reference Range L ipase 20.0 13.0-60.0 - u/L * Yesica Tapia 04/07/2024 8:10 :08 AM >See phone encounter ?LAB: CBC Venipuncture (in house) (Collection Date & Time - 04/06/2024)* Value Reference Range w bc 6.5 3.5 - 10 * l ymph 23.9 15 - 50 * m id 5.4 2 - 15 * g ran 70.7 35 - 80 * r bc 4.93 3.5 - 5.5 * h gb 14.2 11.5 - 16.5 * h ct 43.9 35 - 55 * m cv 88.8 75 - 100 * m ch 28.8 25 - 35 * m chc 32.4 31 - 38 * p latlet 352 100 - 400 * Sanjuanita Evans 04/06/2024 1:12 :09 PM > Yesica Tapia 04/07/2024 8:10:08 AM >See phone encounter 2.?Generalized abdominal pain?LAB: P-Comprehensive Metabolic Panel (CMP) (Collection Date & Time - 04/06/2024 10:35 AM)?Normal* Value Reference Range A /G Ratio 2.3 1.1-2.5 - mg/dL * A lbumin 4.2 3.5-5.3 - g/dL * A lkaline Phosphatase 52 40-129 - IU/L * A LT (SGPT) 10 <5-55 - IU/L * A ST (SGOT) 15 <5-46 - IU/L * B ilirubin, Total 0.4 <0.2-1.2 - mg/dL * B UN 11 8-23 - mg/dL * C alcium 9.3 8.6-10.4 - mg/dL * C hloride 105 97-108 - mEq/L * C O2 27 22-32 - mEq/L * C reatinine 0.88 0.70-1.30 - mg/dL * G lucose 83 65-99 - mg/dL * P otassium 4.6 3.5-5.3 - mEq/L * S odium 143 135-145 - mEq/L * P rotein 6.0 6.0-8.3 - g/dL * e GFR by Creatinine 92 >59 - mL/min/1.73m2 * Yesica Tapia 04/07/2024 8:10 :08 AM >See phone encounter ?LAB: P-TSH reflex to FT4 (Collection Date & Time - 04/06/2024 10:35 AM)? Normal* Value Reference Range T SH reflex to FT4 1.78 0.43-5.25 - mU/L * Yesica Tapia 04/07/2024 8:10 :08 AM >See phone encounter * Procedure Codes: G 2211 Complex e/[place], [address] CBC WITH AUTO DIFF * Follow Up: v ia phone to report test results * Images: Billing Information: * Visit Code: 06495 Office Visit, Est Pt., Level 4. * Procedure Codes: G2211 Complex e/[place]. [address] CBC WITH AUTO DIFF. * Electronic signature of Goldie Larson MD on 09/17/2025 at 11:12 AM EST Sign off status: Pending * Provider: Jorge Larson M.D. Date: 0 04/06/2024 Generated for Alice salter/Jayy/eTransmitting on: 1 11/18/2024 11:12 AM EST History and Physical Notes * HPI (History of Present Illness) Category Sub-Category Detail Notes Category Not es Gastroenterology Nausea Pt complains of ongoing nausea, states this has been going on about a year and a half. Pt states nausea is worse in the evening and he does vomit at times. Pt states he has had cholecystectomy and has read that nausea could be related to that Examination Category Sub-Category Detail Notes Category Not es Gastroenterology Oral cavity: normal Sclera: anicteric Heart sounds: regular, normal S1 S 2 Lungs: clear, no rales or w heezes Abdomen: BS present, soft, so me epigastric and LUQ tenderness to palpation, no guarding or rigidity General Appearance: pleasant, NAD
--- OUTSIDE RECORDS SUMMARY | 2024-04-10 09:45 | XMS_ITS ---
Author [facility] Address [address] [place] [id number] Care Team Providers Care Soft Work Wrapper Examiner Name Role Phone Mumtaz Larson Primary Care Provider Allergies No Known Allergies Results Component Value Reference Range Notes Echocardiogram Reviewed date:04/24/2024 11:02:02 AM Interpretation:Abnormal Performing Lab: Notes/Report: Abnormal Ultrasound : Kidneys, right Reviewed date:04/17/2024 11:22:53 AM Interpretation:Abnormal Performing Lab: Notes/Report: Abnormal EGD Reviewed date:06/05/2024 10:24:21 AM Interpretation: Performing Lab: Notes/Report: CANDIDO Reviewed date:04/11/2024 02:55:01 PM Interpretation: Performing Lab: Notes/Report: REASON FOR VISIT f/u [facility] ER CT scan Medications Medication SIG (Take, Route, Frequency, Duration) Notes Start Date End Date Status metFORMIN HCl ER 500 MG 1 tab(s) orally once a day Not-Taking Ondansetron 4 MG 1 tablet on the tong ue and allow to dissolve Orally Two times a day; Duration: 30 day(s) 04/06/2024 Active ALPRAZolam 0.25 MG 1 tablet Orally Tw day 04/10/2024 Active DULoxetine HCl 60 mg TAKE TWO CAPSULES B Y MOUTH ONCE DAILY; Duration: 90 days Active Promethazine HCl 25 MG 1 tablet as neede d Orally every 6 hrs Active QUEtiapine Fumarate 200 MG 1 tab(s) oral ly once a day (in the evening); Duration: 90 days Active Tamsulosin HCl 0.4 MG 1 capsule Orally O nce a day; Duration: 90 days 09/01/2023 Active Fenofibrate 145 mg TAKE ONE TABLET BY MOUTH EVERY DAY; Duration: 90 days Active Allopurinol 300 mg TAKE ONE TABLET BY MOUTH EVERY DAY; Duration: 90 days Active Levothyroxine Sodium 50 MCG 1 tab(s) orally once a day; Duration: 90 days Active Omeprazole 20 MG 1 cap(s) orally once a day; Duration: 90 days Active CellCept 500 MG 3 tablet orally 2 times a day Active FiberCon 625 MG 1 tablets as needed Orally once daily Active Budesonide 3 MG 3 capsules Orally On ce a day in the evening Active Align 4 MG as directed Orally Active Potassium Chloride ER 10 MEQ 1 tablet with food Orally once daily 04/10/2024 Active busPIRone HCl 10 MG 1 tablet Orally Twic e a day Active Vital Signs Blood pressure systolic 110 mm Hg 04/10/20 Blood pressure diastolic 80 mm Hg 024 Heart Rate 98 /min 04/10/2024 Height 73.50 in 04/10/2024 Weight 207 lbs 04/10/2024 BMI 26.94 kg/m2 04/10/2024 Encounters Encounter Location Date Provider Diagnosis [facility] [address] [facility] [address] [place], [place] [id number] 04/10/2024 Mumtaz Larson Nausea and vomiting, unspecified vomiting type R11.2 ; 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 Risks and benefits of the use of controlled substances discussed, including the risk of tolerance and drug dependence. Refer to [facility] Controlled Substance Agreement. 04/10/2024 Other ER record reviewed including lab and radiology results. Right renal mass, pericardial effusion and low potassium Plan Of Treatment Medication Medication Name Sig Start Date Stop Date Notes ALPRAZolam 0.25 MG 1 tablet Orally Twice a day 04/10/2024 Promethazine HCl 25 MG 1 tablet as neede d Orally every 6 hrs Potassium Chloride ER 10 MEQ 1 tablet wi th food Orally once daily 04/10/2024 Treatment Notes Assessment Notes Adjustment reaction with anxiety Current course of treatment reviewed, including pertinent labs and diagnostic imaging. Risks and benefits of the use of controlled substances discussed, including the risk of tolerance and drug dependence. Refer to [facility] Controlled Substance Agreement. Other ER record reviewed i ncluding lab and radiology results. Right renal mass, pericardial effusion and low potassium Next Appt Details Follow Up: via phone to repo rt test results, Reason: Provider Name:Mumtaz kee, 09/18/2025 10:15:00 AM, [address] [place] [address] [address] [facility], [address], [place], [phone], Provider Name:Mumtaz kee, 02/14/2026 09:30:00 AM, [address] [place] [address] [address] [facility], [address], [place], [place], [phone], Progress Notes * Tien GARCIAMaryOB:1955 (69 yo M)Acc No.[id number]:04/10/2024 Progress Notes Patient: Tien REAL Provider: Jorge Larson M.D. :1955 A ge:68 Y S ex:Male Date:04/10/2024 Address:[address] [place] [address], [place] [id number] Subjective: * Chief Complaints: * 1 . f/u [facility] ER CT scan. * HPI: H PI: 68 year old male presents with c/o Here for follow up on: 0 04/09/2024 [facility] ER visit, see printed and pt docs. Pt went to er for vomiting. Pt was rx'd Phenergan 25 mg and has not had any vomiting, pt taking every 6 hours. Pt states he will need a rf on Phenergan. * ROS: C ARDIOLOGY: no D izziness. n o C hest pain. D ERMATOLOGY: no R ana. n o H gemma. P SYCHOLOGY: Anxiety y es, a bout recent test results. ? U ROLOGY: no D ifficulty urinating. n [...] Surgery 06/2018, Nerve Decompression and Lumbar Fusion- Dr. Ordonez Salome 10/02/2021, Gastric Tube 05/2022, [facility]- right [...] outpatient rehab 02/21. * Medications: T aking Promethazine HCl 25 MG Tablet 1 tablet as needed Orally every 6 hrs , Taking busPIRone HCl 10 MG Tablet 1 tablet [...] TWO CAPSULES BY MOUTH ONCE DAILY , Taking Ondansetron 4 MG Tablet Disintegrating 1 tablet on the tongue and allow to dissolve Orally Two times a day , Not-Taking metFORMIN HCl ER 500 MG Tablet Extended Release 24 Hour 1 tab(s) orally once a day , Medication List reviewed and reconciled with the patient * Allergies: N .K.D.A. Objective: * Vitals: W t:207, Temp:98.1, BP:110/80, HR:98, Nurse:marly, Ht: 73.50, BMI:26.94. * Examination: P sychology: General Appearance: N AD. G rooming : a dequate.?Eye contact : n ormal. M ood : p leasant. G astroenterology: Heart sounds: r egular, normal S1 S2. L ungs: c lear, no rales or wheezes. Assessment: * Assessment: 1. N ausea and vomiting, unspecified vomiting type - R11.2 (Primary) 2 . N eoplasm of uncertain behavior of right kidney - D41.01 3 . P ericardial effusion - I31.39 4 . A djustment reaction with anxiety - F43.22 Plan: * Treatment: 2.?Neoplasm of uncertain behavior of right kidney?Imaging: Ultrasound : Kidneys, right (Performed Date - 04/14/2024)?Abnormal * Penny Monge 04/11/2024 9:26: 40 AM > [facility] 04/14/2024 at 04:00pmPenny Monge 04/11/2024 9:32:15 AM > m for pt to call me backPenny Monge 04/11/2024 9:36:31 AM > pt informed; order faxedWhalen,Brsia 04/17/2024 11:22:45 AM > See phone encounter 3.?Pericardial effusion?Imaging: Echocardiogram (Performed Date - 04/14/2024)?Abnormal* Penny Monge 04/11/2024 9:27: 43 AM > [facility] 04/14/2024 at 03:15pmMariposaPenny 04/11/2024 9:32:04 AM > lvm for pt to call backMariposaPenny 04/11/2024 9:36:15 AM > pt informed; order faBrisa Owens 04/24/2024 11:01:56 AM > See phone encounter 4.?Adjustment reaction with anxiety? Start ALPRAZolam Tablet, 0.25 MG, 1 tablet, Orally, Twice a day, 20, Refills 0.?? Notes: Current course of treatment reviewed, including pertinent labs and diagnostic imaging. Risksand benefits of the use of controlled substances discussed, including the risk of tolerance and drug dependence. Refer to [facility] Controlled Substance Agreement.??5.?Others? Start Potassium Chloride ER Tablet Extended Release, 10 MEQ, 1 tablet with food, Orally, once daily, 7, Refills 0.?? Notes: ER record reviewed including lab and radiology results. Right renal mass, pericardial effusion and low potassium?? * Imaging: * I maging: CANDIDO (Performed Date - 04/11/2024) * Procedure Codes: G 2211 Complex e/m visit add on * Follow Up: v ia phone to report test results * Images: Billing Information: * Visit Code: 86313 Office Visit, Est Pt., Level 4. * Procedure Codes: G2211 Complex e/m visit add on. * Electronic signature of Goldie Larson MD on 09/17/2025 at 11:12 AM EST Sign off status: Pending * Provider: Jorge Larson M.D. Date: 0 04/10/2024 Generated for Alice salter/Jayy/Danikaitting on: 1 11/18/2024 11:12 AM EST History and Physical Notes * HPI (History of Present Illness) Category Sub-Category Detail Notes Category Not es HPI Here for follow up on: [facility] ER visit, see printed and pt docs. Pt went to er for vomiting. Pt was rx'd Phenergan 25 mg and has not had any vomiting, pt taking every 6 hours. Pt states he will need a rf on Phenergan Examination Category Sub-Category Detail Notes Category Not es Gastroenterology Heart sounds: regular, normal S1 S2 Lungs: clear, no rales or w heezes Psychology General Appearance: NAD Grooming : adequate Eye contact : normal Mood : pleasant
--- OUTSIDE RECORDS SUMMARY | 2024-06-13 04:00 | XMS_ITS ---
Author Organization [facility] Address [address] [place] [id number] Care Team Providers Care Core Placer Name Role Phone Mumtaz Larson Primary Care Provider [phone] Allergies No Known Allergies Results Component Value Reference Range Notes CBC Venipuncture (in house) Reviewed date:06/14/2024 10:35:10 AM Interpretation:Normal Performing Lab: Notes/Report: Normal wbc 3.9 3.5 - 10 lymph 30.5 15 - 50 mid 7.4 2 - 15 gran 62.1 35 - 80 rbc 4.13 3.5 - 5.5 hgb 11.7 11.5 - 16.5 hct 36.1 35 - 55 mcv 87.4 75 - 100 mch 28.3 25 - 35 mchc 32.3 31 - 38 platlet 330 100 - 400 P-Basic Metabolic Panel (BMP ) Reviewed date:06/14/2024 10:35:10 AM Interpretation:bun 27 Performing Lab: Notes/Report: CLIA: [id number] Kai Mock MD, Assembly Worker [address] [place] [address] , [address], [place] [address] Test performed by [facility], [facility] Sodium 136 135-145 mmol/L Potassium 4.2 3.5-5.3 mmol/L Chloride 100 97-108 mmol/L CO2 26 22-32 mmol/L Glucose 91 65-99 mg/dL BUN 27 8-23 mg/dL Creatinine 1.14 0.70-1.30 mg/dL Calcium 8.9 8.6-10.4 mg/dL eGFR by Creatinine 69 >59 mL/min/1.73m2 REASON FOR VISIT follow up on surgery at [facility] Medications Medication SIG (Take, Route, Frequency, Duration) Notes Start Date End Date Status FiberCon 625 MG 1 tablets as needed Orally once daily Active Budesonide 3 MG 3 capsules Orally On ce a day in the evening Active Align 4 MG as directed Orally Active busPIRone HCl 10 MG 1 tablet Orally Twic e a day Active ALPRAZolam 0.25 MG 1 tablet Orally Twic e a day 04/10/2024 Active Ondansetron 4 MG 1 tablet on the ue and allow to dissolve Orally Two times a day; Duration: 30 day(s) 04/06/2024 Active DULoxetine HCl 60 mg TAKE TWO CAPSULES B Y MOUTH ONCE DAILY; Duration: 90 days Active Potassium Chloride ER 10 MEQ 1 tablet wi th food Orally once daily 04/10/2024 Active QUEtiapine Fumarate 200 MG 1 tab(s) oral ly once a day (in the evening); Duration: 90 days Active Tamsulosin HCl 0.4 MG 1 capsule Orally O nce a day; Duration: 90 days 09/01/2023 Active Fenofibrate 145 mg TAKE ONE TABLET BY M OUTH EVERY DAY; Duration: 90 days Active Allopurinol 300 mg TAKE ONE TABLET BY M OUTH EVERY DAY; Duration: 90 days Active Levothyroxine Sodium 50 MCG 1 tab(s) ora lly once a day; Duration: 90 days Active Omeprazole 20 MG 1 cap(s) orally once a day; Duration: 90 days Active CellCept 500 MG 3 tablet orally 2 ti mes a day Active Problems Problem Type SNOMED Code ICD Code Onset Dates Problem Status W/U Status Risk Notes Problem Absent kidney (274791430) S/p nephrectomy (Z90.5) Active confirmed Vital Signs Blood pressure systolic 88 mm Hg 06/13/20 24 Blood pressure diastolic 48 mm Hg 024 Heart Rate 90 /min 06/13/2024 Height 73.50 in 06/13/2024 Weight 216.2 lbs 06/13/2024 BMI 28.13 kg/m2 06/13/2024 Encounters Encounter Location Date Provider Diagnosis [facility] [address] [facility] [address] [place], [place] [id number] 06/13/2024 Mumtaz Seneca Hypotension, unspecified hypotension type I95.9 and S/p nephrectomy Z90.5 Assessments Encounter Date Diagnosis (ICD Code) Assessment Notes Treatment Notes Treatment Clinical Notes Section Notes 06/13/2024 Hypotension, unspecified hypotension type (ICD-10 - I95.9) 06/13/2024 S/p nephrectomy (ICD-10 - Z90.5) Doing well, continue routine post op care/restricti ons Plan Of Treatment Treatment Notes Assessment Notes S/p nephrectomy Doing well, continue routine post op care/restrictions Next Appt Details Follow Up: as scheduled,and prn, Reason: Provider Name:Mumtaz kee, 09/18/2025 10:15:00 AM, [address] [facility], [address], [place], [phone], Provider Name:Mumtaz kee, 02/14/2026 09:30:00 AM, [address] [facility], [address], [place], [id number], Progress Notes * Tien GARCIAOB:1955 (69 yo M)Acc No.[id number]:06/13/2024 Progress Notes Patient: Tien REAL Provider: Jorge Larson M.D. :1955 A ge:68 Y S ex:Male Date:06/13/2024 Address:[address] [place] [address], [id number] Subjective: * Chief Complaints: * 1 . follow up on surgery at [facility]. * HPI: H PI: 68 year old male presents with c/o Here for follow up on: 0 06/02/2024 Rt Nephrectomy, see pt docs. Pt states he is doing well and does not have any concerns. Dr. Rasta Watson was the surgeon. * ROS: D ERMATOLOGY: no R ana. n o H gemma. G ASTROENTEROLOGY: no N ausea. n o V omiting. U ROLOGY: no D ifficulty urinating. n o B lood in urine. * Medical History: H ypertension, Type 2 Diabetes , Hyperlipidemia, Acid Reflux, Hiatal Hernia, Gout, Depression, Psoriatic Arthritis, Chronic Diarrhea, GI evaluation 2015, Dx with Microscopic colitis, Prostate Cancer - Brackytherapy, seed implants - [facility] - Dr. Davenport dx 08/2015, Lumbar Disc [...] 05/2022, [facility]- right elbow infection debridement 02/2023, Rt Nephrectomy- [facility] 06/02/2024. * Hospitalization/Major Diagno stic Procedure: D enies [...] dissolve Orally Two times a day , Taking ALPRAZolam 0.25 MG Tablet 1 tablet Orally Twice a day , Taking Potassium Chloride ER 10 MEQ Tablet Extended Release 1 tablet with food Orally once daily , Discontinued Promethazine HCl 25 MG Tablet 1 tablet as needed Orally every 6 hrs , Discontinued metFORMIN HCl ER 500 MG Tablet Extended Release 24 Hour 1 tab(s) orally once a day , Medication List reviewed and reconciled with the patient * Allergies: N .K.D.A. Objective: * Vitals: W t:216.2, Temp:97.9, BP:88/48, HR:90, Nurse:marly, Ht: 73.50, BMI:28.13. * Examination: G eneral Examination: General Appearance: N AD. H eart: R SR. L ungs:?clear to auscultation. A bdomen: m idline abdominal wound is healing well, no drainage. Assessment: * Assessment: 1. H ypotension, unspecified hypotension type - I95.9 (Primary) 2 . S /p nephrectomy - Z90.5 Plan: * Treatment: Value Reference Range B UN 27 H 8-23 - mg/dL * C alcium 8.9 8.6-10.4 - mg/dL * C hloride 100 97-108 - mmol/L * C O2 26 22-32 - mmol/L * C reatinine 1.14 0.70-1.30 - mg/dL * G lucose 91 65-99 - mg/dL * P otassium 4.2 3.5-5.3 - mmol/L * S odium 136 135-145 - mmol/L * e GFR by Creatinine 69 >59 - mL/min/1.73m2 * Brisa Swain 06/14/2024 10:35 :03 AM >See phone encounter ?LAB: CBC Venipuncture (in house) (Collection Date & Time - 06/13/2024)? Normal* Value Reference Range w bc 3.9 3.5 - 10 * l ymph 30.5 15 - 50 * m id 7.4 2 - 15 * g ran 62.1 35 - 80 * r bc 4.13 3.5 - 5.5 * h gb 11.7 11.5 - 16.5 * h ct 36.1 35 - 55 * m cv 87.4 75 - 100 * m ch 28.3 25 - 35 * m chc 32.3 31 - 38 * p latlet 330 100 - 400 * Sajnuanita Evans 06/13/2024 10:2 0:23 AM > Brisa Swain 06/14/2024 10:35:03 AM >See phone encounter 2.?S/p nephrectomy? Notes: Doing well, continue routine post op care/restrictions?? * Procedure Codes: G 2211 Complex e/[place], [address] CBC WITH AUTO DIFF, 3074F SYST BP LT 130 MM HG, 3078F DIAST BP < 80 MM HG * Follow Up: a s scheduled,and prn * Images: Billing Information: * Visit Code: 48171 Office Visit, Est Pt., Level 3. * Procedure Codes: G2211 Complex e/[place]. [address] CBC WITH AUTO DIFF. 3074F SYST BP LT 130 MM HG. 3078F DIAST BP < 80 MM HG. * Electronic signature of Goldie Larson MD on 09/17/2025 at 11:14 AM EST Sign off status: Pending * Provider: Jorge Larson M.D. Date: 0 06/13/2024 Generated for Alice salter/Jayy/eTransmitting on: 1 11/18/2024 11:14 AM EST History and Physical Notes * HPI (History of Present Illness) Category Sub-Category Detail Notes Category Not es HPI Here for follow up on: 4 Rt Nephrectomy, see pt docs. Pt states he is doing well and does not have any concerns. Dr. Rasta Watson was the surgeon Examination Category Sub-Category Detail Notes Category Not es General Examination Heart: RSR Lungs: clear to auscultatio n Abdomen: midline abdominal wo und is healing well, no drainage General Appearance: NAD
--- OUTSIDE RECORDS SUMMARY | 2024-08-25 04:00 | XMS_ITS ---
Author Organization [facility] Address [address] [place] [id number] Care Team Providers [employer] Sales Associate Name Role Phone Mumtaz Larson Primary Care Provider Allergies No Known Allergies Results Component Value Reference Range Notes Glucose (In-House) Reviewed date:08/29/2024 08:48:35 AM Interpretation:Normal Performing Lab: Notes/Report: Normal blood glucose 103 74 - 106 mg/dL Glycohemoglobin A1c (in hous e) Reviewed date:08/29/2024 08:48:35 AM Interpretation:Normal Performing Lab: Notes/Report: Normal glycohemoglobin 5.6% 5 - 6.5 % P-Comprehensive Metabolic Pa choco (CMP) Reviewed date:08/29/2024 08:48:35 AM Interpretation:Normal Performing Lab: Notes/Report: CLIA: [id number] Kai Mock MD, Rn Cardiac Cath [address] [facility] , [address], [place] [address] Test performed by [employer] Sodium 141 135-145 mmol/L Potassium 4.5 3.5-5.3 mmol/L Chloride 102 97-108 mmol/L CO2 26 22-32 mmol/L Glucose 87 65-99 mg/dL BUN 18 8-23 mg/dL Creatinine 1.15 0.70-1.30 mg/dL Calcium 9.3 8.6-10.4 mg/dL eGFR by Creatinine 68 >59 mL/min/1.73m2 Protein 6.8 6.0-8.3 g/dL Albumin 4.5 3.5-5.3 g/dL Alkaline Phosphatase 53 40-129 IU/L ALT (SGPT) 13 <5-55 IU/L AST (SGOT) 17 <5-46 IU/L Bilirubin, Total 0.3 <0.2-1.2 mg/dL A/G Ratio 2.0 1.1-2.5 P-T4 Free (thyroxine) Reviewed date:08/29/2024 08:48:35 AM Interpretation:Normal Performing Lab: Notes/Report: Test performed by [employer] [address] [place], [place] [address] , [address], [place] [address] Kai Mock MD, Rn Cardiac Cath CLIA: [id number] Thyroxine Free (free T4) 1.11 0.86-1.76 ng/dL P-Lipid Panel Reviewed date:08/29/2024 08:48:35 AM Interpretation:satisfactory Performing Lab: Notes/Report: Test performed by [employer] [address] [place], [place] [address] , [address], [place] [id number] Kai Mock MD, Rn Cardiac Cath CLIA: [id number] Cholesterol 192 <200 mg/dL Triglycerides 102 <150 mg/dL HDL Cholesterol 58 >39 mg/dL Cholesterol / HDL Ratio 3.31 0.00-4.99 Ratio Non-HDL Cholesterol 134 <130 mg/dL LDL Cholesterol (Calculation) 114 <130 mg/dL LDL Cholesterol Levels* Less than 100 mg/dL Optimal 100 to 129 mg/dL Near Optimal/ Above Optimal 130 to 159 mg/dL Borderline High 160 to 189 mg/dL High 190 mg/dL and above Very High * Categories as recommended by the 2004 ATPIII guidelines LDL/HDL Ratio 2.0 <3.3 Ratio LDL Cholesterol Patient History Test Date: 08/25/2024 LDL Results: 114 Units: mg/dL % Change: - P-TSH Reviewed date:08/29/2024 08:48:35 AM Interpretation:Normal Performing Lab: Notes/Report: Test performed by [employer] [address] [place], [place] [address] [facility], [place] [address] Kai Mock MD, Rn Cardiac Cath CLIA: [id number] TSH 2.29 0.43-5.25 mU/L P-Microalbumin/Creatinine, R andom Urine Sample Reviewed date:08/29/2024 08:48:35 AM Interpretation:Normal Performing Lab: Notes/Report: Test performed by [employer] [address] [place] [address] [address] , [place] [address] Kai Mock MD, Rn Cardiac Cath CLIA: [id number] Albumin/Creatinine Ratio, Urine 3 0-30 ug/m g Microalbumin, Urine, Random 0.3 Creatinine, Urine 102.6 REASON FOR VISIT 6 month Medications Medication SIG (Take, Route, Frequency, Duration) Notes Start Date End Date Status DULoxetine HCl 60 mg TAKE TWO CAPSULES B Y MOUTH ONCE DAILY; Duration: 90 days Active QUEtiapine Fumarate 200 MG 1 tab(s) oral ly once a day (in the evening); Duration: 90 days Active ALPRAZolam 0.25 MG 1 tablet Orally Twic e a day 04/10/2024 Active Ondansetron 4 MG 1 tablet on the tong ue and allow to dissolve Orally Two times a day; Duration: 30 day(s) 04/06/2024 Active Potassium Chloride ER 10 MEQ 1 tablet wi th food Orally once daily 04/10/2024 Active Tamsulosin HCl 0.4 MG 1 capsule Orally O nce a day; Duration: 90 days 09/01/2023 Active Allopurinol 300 mg TAKE ONE TABLET BY M OUTH EVERY DAY; Duration: 90 days Active Omeprazole 20 MG 1 cap(s) orally once a day; Duration: 90 days Active CellCept 500 MG 3 tablet orally 2 ti mes a day Active FiberCon 625 MG 1 tablets as needed Orally once daily Active busPIRone HCl 10 MG 1 tablet Orally Twic e a day Active Fenofibrate 145 mg TAKE ONE TABLET BY M OUTH EVERY DAY Active Levothyroxine Sodium 50 MCG 1 tab(s) ora lly once a day Active Budesonide 3 MG 3 capsules Orally On ce a day in the evening Active Align 4 MG as directed Orally Active Immunizations Vaccine Route Administration Date Status Comme nts Fluzone High Dose (65yr and older) IM Intramuscular 08/25/2024 Administered Vital Signs Blood pressure systolic 112 mm Hg 08/25/20 24 Blood pressure diastolic 72 mm Hg 024 Heart Rate 94 /min 08/25/2024 Height 73.50 in 08/25/2024 Weight 216.4 lbs 08/25/2024 BMI 28.16 kg/m2 08/25/2024 Encounters Encounter Location Date Provider Diagnosis [facility] [address] [facility] [address], [place] [id number] 08/25/2024 Mumtaz Larson Type 2 diabetes ann marie itus without complications E11.9 ; Essential (primary) hypertension I10 ; Hyperlipidemia, unspecified E78.5 ; Acquired hypothyroidism E03.9 and Encounter for immunization Z23 Assessments Encounter Date Diagnosis (ICD Code) Assessment Notes Treatment Notes Treatment Clinical Notes Section Notes 08/25/2024 Type 2 diabetes mellitus without complications (ICD-10 - E11.9) Doing well off of medication 08/25/2024 Essential (primary) hypertension (ICD-10 - I10) 08/25/2024 Hyperlipidemia, unspecified (ICD-10 - E78.5) 08/25/2024 Acquired hypothyroidism (ICD-10 - E03.9) 08/25/2024 Encounter for immunization (ICD-10 - Z23) Plan Of Treatment Medication Medication Name Sig Start Date Stop Date Notes Fenofibrate 145 mg TAKE ONE TABLET BY M OUTH EVERY DAY Levothyroxine Sodium 50 MCG 1 tab(s) orally once a day Treatment Notes Assessment Notes Type 2 diabetes mellitus without complic ations Doing well off of medication Next Appt Details Follow Up: 6 Months, Reason: Provider Name:Mumtaz Rae vidhya, 09/18/2025 10:15:00 AM, [address] [facility] [address], [place], [id number], Provider Name:Mumtaz Rae vidhya, 02/14/2026 09:30:00 AM, [address] [facility] [address], [address], [place], [id number], Progress Notes * Tien GARCIAOB:1955 (69 yo M)Acc No.[id number]:08/25/2024 Progress Notes Patient: Tien REAL Provider: Jorge Larson M.D. :1955 A ge:68 Y S ex:Male Date:08/25/2024 Address:[address] [place] [address], [id number] Subjective: * Chief Complaints: * 1 . 6 month. * HPI: C ardiology: 68 year old male presents with c/o Blood Pressure Elevated P t here for 6 mo f/u on hypertension, states he is doing well and does not have any concerns. c/o Hyperlipidemia P t is fasting today. E ndocrinology: c/o Recent Blood Sugars P t here to f/u on DM 2, pt states that he does not check blood sugar at home. * ROS: D ERMATOLOGY: no R ana. [...] 1994, Colon Polyps, Sleep Apnea, Myasthenia Gravis, 2021, DO NOT SEND MEDS TO [facility]. * Surgical History: A ppendectomy 2004, Umbilical Hernia , LT Knee 1999, 2000, Finger Reattachment , LT Knee Scope, Bone Chip Removal 02/2007, Colonoscopy 2005, 2007, 2012, 2014, 2014, Prostate Biopsy 09/16/2015, Brachy Therapy - Prostate Implant 12/2015, Oral Surgery 06/2018, Nerve Decompression and Lumbar Fusion- Dr. Ordonez, [place] 10/02/2021, Gastric Tube 05/2022, [facility]- right elbow infection debridement 02/2023, Rt Nephrectomy- [facility] 06/02/2024. * Hospitalization/Major Diagno stic Procedure: D [...] tablet with food Orally once daily , Medication List reviewed and reconciled with the patient * Allergies: N .K.D.A. Objective: * Vitals: W t:216.4, Temp:98.0, BP:112/72, HR:94, Nurse:marly, Ht: 73.50, BMI:28.16. * Examination: E ndocrinology: General Appearance: N AD. H eart: R SR. L ungs:?clear to auscultation. E xtremities: n o leg edema. Assessment: * Assessment: 1. T ype 2 diabetes mellitus without complications - E11.9 (Primary) 2 . E ssential (primary) hypertension - I10 3 . H yperlipidemia, unspecified - E78.5? 4. A cquired hypothyroidism - E03.9 5 . E ncounter for immunization - Z23 Plan: * Treatment: Value Reference Range A /G Ratio 2.0 1.1-2.5 - * A lbumin 4.5 3.5-5.3 - g/dL * A lkaline Phosphatase 53 40-129 - IU/L * A LT (SGPT) 13 <5-55 - IU/L * A ST (SGOT) 17 <5-46 - IU/L * B ilirubin, Total 0.3 <0.2-1.2 - mg/dL * B UN 18 8-23 - mg/dL * C alcium 9.3 8.6-10.4 - mg/dL * C hloride 102 97-108 - mmol/L * C O2 26 22-32 - mmol/L * C reatinine 1.15 0.70-1.30 - mg/dL * G lucose 87 65-99 - mg/dL * P otassium 4.5 3.5-5.3 - mmol/L * S odium 141 135-145 - mmol/L * P rotein 6.8 6.0-8.3 - g/dL * e GFR by Creatinine 68 >59 - mL/min/1.73m2 * Nataliia Fletcher 08/28/2024 11:40: 11 AM > for return call Nataliia Fletcher 08/29/2024 8:48:23 AM > Pt informed ?LAB: P-Microalbumin/Creatinine, Random Urine Sample (Collection Date & Time - 08/25/2024 08:30 AM)?Normal* Value Reference Range A lbumin/Creatinine Ratio, Urine 3 0-30 - ug /mg * C reatinine, Urine 102.6 - mg/dL * M icroalbumin, Urine, Random 0.3 - mg/dL * Nataliia Fletcher 08/28/2024 11:40: 11 AM > Lm for return call Nataliia Fletcher 08/29/2024 8:48:23 AM > Pt informed ?LAB: Glucose (In-House) (Collection Date & Time - 08/25/2024)?Normal* Value Reference Range b lood glucose 103 74 - 106 mg/dL * Nataliia Fletcher 08/25/2024 11:21:1 5 AM > Nataliia Fletcher 08/28/2024 11:40:11 AM > Lm for return call Nataliia Fletcher 08/29/2024 8:48:23 AM > Pt informed ?LAB: Glycohemoglobin A1c (in house) (Collection Date & Time - 08/25/2024)? Normal* Value Reference Range g lycohemoglobin 5.6% 5 - 6.5 % * Nataliia Fletcher 08/25/2024 11:29:3 1 AM > Nataliia Fletcher 08/28/2024 11:40:11 AM > Lm for return call Nataliia Fletcher 08/29/2024 8:48:23 AM > Pt informed Notes: Doing well off of medication??2.?Essential (primary) hypertension?LAB: P-Comprehensive Metabolic Panel (CMP) (Collection Date & Time - 08/25/2024 08:30 AM)?Normal* Value Reference Range A /G Ratio 2.0 1.1-2.5 - * A lbumin 4.5 3.5-5.3 - g/dL * A lkaline Phosphatase 53 40-129 - IU/L * A LT (SGPT) 13 <5-55 - IU/L * A ST (SGOT) 17 <5-46 - IU/L * B ilirubin, Total 0.3 <0.2-1.2 - mg/dL * B UN 18 8-23 - mg/dL * C alcium 9.3 8.6-10.4 - mg/dL * C hloride 102 97-108 - mmol/L * C O2 26 22-32 - mmol/L * C reatinine 1.15 0.70-1.30 - mg/dL * G lucose 87 65-99 - mg/dL * P otassium 4.5 3.5-5.3 - mmol/L * S odium 141 135-145 - mmol/L * P rotein 6.8 6.0-8.3 - g/dL * e GFR by Creatinine 68 >59 - mL/min/1.73m2 * Nataliia Fletcher 08/28/2024 11:40: 11 AM > Lm for return call Nataliia Fletcher 08/29/2024 8:48:23 AM > Pt informed 3.?Hyperlipidemia, unspecified? Continue Fenofibrate Tablet, 145 mg, TAKE ONE TABLET BY MOUTH EVERY DAY.?LAB: P-Comprehensive Metabolic Panel (CMP) (Collection Date & Time - 08/25/2024 08:30 AM)?Normal* Value Reference Range A /G Ratio 2.0 1.1-2.5 - * A lbumin 4.5 3.5-5.3 - g/dL * A lkaline Phosphatase 53 40-129 - IU/L * A LT (SGPT) 13 <5-55 - IU/L * A ST (SGOT) 17 <5-46 - IU/L * B ilirubin, Total 0.3 <0.2-1.2 - mg/dL * B UN 18 8-23 - mg/dL * C alcium 9.3 8.6-10.4 - mg/dL * C hloride 102 97-108 - mmol/L * C O2 26 22-32 - mmol/L * C reatinine 1.15 0.70-1.30 - mg/dL * G lucose 87 65-99 - mg/dL * P otassium 4.5 3.5-5.3 - mmol/L * S odium 141 135-145 - mmol/L * P rotein 6.8 6.0-8.3 - g/dL * e GFR by Creatinine 68 >59 - mL/min/1.73m2 * Nataliia Fletcher 08/28/2024 11:40: 11 AM > Lm for return call Nataliia Fletcher 08/29/2024 8:48:23 AM > Pt informed ?LAB: P-Lipid Panel (Collection Date & Time - 08/25/2024 08:30 AM)? satisfactory* Value Reference Range C holesterol / HDL Ratio 3.31 0.00-4.99 - Ratio * C holesterol 192 <200 - mg/dL * H DL Cholesterol 58 >39 - mg/dL * L DL Cholesterol (Calculation) 114 <130 - mg/d L * L DL/HDL Ratio 2.0 <3.3 - Ratio * N on-HDL Cholesterol 134 H <130 - mg/dL * T riglycerides 102 <150 - mg/dL * Nataliia Fletcher 08/28/2024 11:40: 11 AM > Lm for return call Nataliia Fletcher 08/29/2024 8:48:23 AM > Pt informed 4.?Acquired hypothyroidism? Continue Levothyroxine Sodium Tablet, 50 MCG, 1 tab(s), orally, once a day.?LAB: P-T4 Free (thyroxine) (Collection Date & Time - 08/25/2024 08:30 AM)? Normal* Value Reference Range T hyroxine Free (free T4) 1.11 0.86-1.76 - ng/d L * Nataliia Fletcher 08/28/2024 11:40: 11 AM > Lm for return call Nataliia Fletcher 08/29/2024 8:48:23 AM > Pt informed ?LAB: P-TSH (Collection Date & Time - 08/25/2024 08:30 AM)?Normal* Value Reference Range T SH 2.29 0.43-5.25 - mU/L * Nataliia Fletcher 08/28/2024 11:40: 11 AM > Lm for return call Nataliia Fletcher 08/29/2024 8:48:23 AM > Pt informed * Immunizations: Fluzone High Dose (65yr and older) : 0.5 mL (Route: Intramuscular) given by Nataliia Fletcher on Right Thigh (Encounter for immunization) * Procedure Codes: 8 2950 GLUCOSE TEST, 90308 GLYCATED HEMOGLOBIN TEST, Modifiers: QW * Follow Up: 6 Months * Images: Billing Information: * Visit Code: 94383 Office Visit, Est Pt., Level 4. * Procedure Codes: 40866 GLUCOSE TEST. 83058 GLYCATED HEMOGLOBIN TEST. Modifiers: QW * Electronic signature of Goldie Larson MD on 09/17/2025 at 11:10 AM EST Sign off status: Pending * Provider: Jorge Larson M.D. Date: 10/25/2023 Generated for Alice salter/Jayy/Louisesmitting on: 11/18/2024 11:10 AM EST History and Physical Notes * HPI (History of Present Illness) Category Sub-Category Detail Notes Category Not es Endocrinology Recent Blood Sugars Pt here to f /u on DM 2, pt states that he does not check blood sugar at home Cardiology Blood Pressure Elevated Pt here for 6 mo f/u on hypertension, states he is doing well and does not have any concerns Hyperlipidemia Pt is fasting today Examination Category Sub-Category Detail Notes Category Not es Endocrinology Heart: RSR Lungs: clear to auscultatio n Extremities: no leg edema General Appearance: NAD
--- OUTSIDE RECORDS SUMMARY | 2025-02-14 06:15 | XMS_ITS ---
Author Organization [facility] Address [address] [place] [id number] Care Team Providers Care Medicare Sales Executive Name Role Phone Mumtaz Larson Primary Care Provider Allergies No Known Allergies Results Component Value Reference Range Notes CBC Fingerstick (in house) Reviewed date:02/14/2025 12:29:11 PM Interpretation: Performing Lab: Notes/Report: wbc 6.2 3.5 - 10 lym 30.4% 15 - 50 mid 7.1% 2 - 15 gran 62.5% 35 - 80 rbc 4.93 3.5 - 5.5 hgb 13.0 11.5 - 16.5 hct 41.2 35 - 55 mcv 83.6 75 - 100 mch 26.5 25 - 35 mchc 31.7 31 - 38 plat 235 100 - 400 P-Comprehensive Metabolic Pa choco (CMP) Reviewed date:02/15/2025 11:43:38 AM Interpretation:Normal Performing Lab: Notes/Report: Test performed by [facility] [place] [facility] , [address], [place] [address] Kai Mock MD, Grain Origination Specialist CLIA: [id number] Sodium 140 135-145 mmol/L Potassium 4.1 3.5-5.3 mmol/L Chloride 103 97-108 mmol/L CO2 26 22-32 mmol/L Glucose 109 65-99 mg/dL BUN 19 8-23 mg/dL Creatinine 1.25 0.70-1.30 mg/dL Calcium 9.2 8.6-10.4 mg/dL eGFR by Creatinine 61 >59 mL/min/1.73m2 Protein 6.3 6.0-8.3 g/dL Albumin 4.3 3.5-5.3 g/dL Alkaline Phosphatase 48 40-129 IU/L ALT (SGPT) 10 <5-55 IU/L AST (SGOT) 18 <5-46 IU/L Bilirubin, Total 0.3 <0.2-1.2 mg/dL A/G Ratio 2.1 1.1-2.5 P-Hemoglobin A1C Reviewed date:02/15/2025 11:43:38 AM Interpretation:Normal Performing Lab: Notes/Report: Test performed by [facility] [address] [place], [place] [id number] [place] [address], [place] [address] Kai Mock MD, Grain Origination Specialist CLIA: [id number] Hemoglobin A1C 5.6 <5.7 % The following HbA1c ranges recommended by the [place] [employer] (ADA) may be used as an aid in the diagnosis of diabetes mellitus. HbA1c Suggested Diagnosis >=6.5% Diabetic 5.7% - 6.4% Pre-Diabetic <5.7% Non-Diabetic P-Lipid Panel Reviewed date:02/15/2025 11:43:38 AM Interpretation:Normal Performing Lab: Notes/Report: Test performed by [facility] [address] [place] [address] [address], [place] [address] Kai Mock MD, Grain Origination Specialist CLIA: [id number] Cholesterol 177 <200 mg/dL Triglycerides 132 <150 mg/dL HDL Cholesterol 53 >39 mg/dL Cholesterol / HDL Ratio 3.34 0.00-4.99 Ratio Non-HDL Cholesterol 124 <130 mg/dL LDL Cholesterol (Calculation) 98 <130 mg/dL LDL Cholesterol Levels* Less than 100 mg/dL Optimal 100 to 129 mg/dL Near Optimal/ Above Optimal 130 to 159 mg/dL Borderline High 160 to 189 mg/dL High 190 mg/dL and above Very High * Categories as recommended by the 2004 ATPIII guidelines LDL/HDL Ratio 1.8 <3.3 Ratio LDL Cholesterol Patient History Test Date: 08/25/2024 LDL Results: 114 Units: mg/dL % Change: - Test Date: 02/14/2025 LDL Results: 98 Units: mg/dL % Change: -14% P-PSA Reviewed date:02/15/2025 11:43:38 AM Interpretation:Normal Performing Lab: Notes/Report: Test performed by [facility] [address] [place] [address] [place] [address] Kai Mock MD, Grain Origination Specialist CLIA: [id number] PSA 0.03 <4.00 ng/mL Please note this is an ultrasensitive PSA assay with a lower limit of detection of 0.014 ng/mL. This test is performed by the [place] ECLIA methodology. Values obtained with different assay methods or kits cannot be directly compared. Estimated Average Glucose Reviewed date:02/15/2025 11:43:38 AM Interpretation:Normal Performing Lab: Notes/Report: Test performed by [facility] [address] [place], [place] [address] [address] Kai Mock MD, Grain Origination Specialist CLIA: [id number] Estimated Average Glucose (eAG) 114 Estimated Average Glucose (eAG) is calculated using the equation eAG = (28.7 x HbA1c) - 46.7 based on the guidelines established by the ADA. If the patient has certain diseases including kidney disease, sickle cell anemia, thalassemia, or is taking medications such as dapsone, erythropoietin, or iron, eAG should not be evaluated. CXR Reviewed date:02/16/2025 01:32:19 PM Interpretation:nothing acute Performing Lab: Notes/Report: nothing acute REASON FOR VISIT cough, minor congestion for about 3 weeks Medications Medication SIG (Take, Route, Frequency, Duration) Notes Start Date End Date Status Levothyroxine Sodium 50 MCG 1 tab(s) ora lly once a day; Duration: 90 days Active Fenofibrate 145 mg 1 tablet Orally Once a day; Duration: 90 days Active Potassium Chloride ER 10 MEQ 1 tablet wi th food Orally once daily 04/10/2024 Active Omeprazole 20 MG 1 cap(s) orally once a day; Duration: 90 days Active Allopurinol 300 mg TAKE ONE TABLET BY M OUTH EVERY DAY; Duration: 90 days Active CellCept 500 MG 3 tablet orally 2 ti mes a day Active Ondansetron 4 MG 1 tablet on the ue and allow to dissolve Orally Two times a day; Duration: 30 day(s) 04/06/2024 Active FiberCon 625 MG 1 tablets as needed Orally once daily Active ALPRAZolam 0.25 MG 1 tablet Orally Twic e a day 04/10/2024 Active Budesonide 3 MG 3 capsules Orally On ce a day in the evening Active DULoxetine HCl 60 mg TAKE TWO CAPSULES B Y MOUTH ONCE DAILY; Duration: 90 days Active Tamsulosin HCl 0.4 MG 1 capsule Orally O nce a day; Duration: 90 days Active busPIRone HCl 10 MG 1 tablet Orally Twic e a day; Duration: 90 days Active Align 4 MG as directed Orally Active QUEtiapine Fumarate 200 MG 1 tab(s) oral ly once a day (in the evening); Duration: 90 days Active Vital Signs Blood pressure systolic 108 mm Hg 02/15/20 25 Blood pressure diastolic 72 mm Hg 025 Heart Rate 93 /min 02/14/2025 Height 73.50 in 02/14/2025 Weight 224.4 lbs 02/14/2025 BMI 29.2 kg/m2 02/14/2025 Encounters Encounter Location Date Provider Diagnosis [facility] [address] [facility] [address] [facility] [address] [place] [id number] 02/14/2025 Mumtaz Larson Cough, unspecified t ype R05.9 ; Type 2 diabetes mellitus without complications E11.9 ; Essential (primary) hypertension I10 ; Hyperlipidemia, unspecified E78.5 ; Prostate cancer screening Z12.5 and BMI 29.0-29.9,adult Z68.29 Assessments Encounter Date Diagnosis (ICD Code) Assessment Notes Treatment Notes Treatment Clinical Notes Section Notes 02/14/2025 Cough, unspecified type (ICD-10 - R05.9) 02/14/2025 Type 2 diabetes mellitus without complications (ICD-10 - E11.9) 02/14/2025 Essential (primary) hypertension (ICD-10 - I10) 02/14/2025 Hyperlipidemia, unspecified (ICD-10 - E78.5) 02/14/2025 Prostate cancer screening (ICD-10 - Z12.5) 02/14/2025 BMI 29.0-29.9,adult (ICD-10 - Z68.29) Plan Of Treatment Next Appt Details Follow Up: 6 Months, Reason: Provider Name:Mumtaz kee, 09/18/2025 10:15:00 AM, [address] [facility] [address] [facility], [address], [place], [id number], Provider Name:Mumtaz kee, 02/14/2026 09:30:00 AM, [address] [facility] [address] [facility], [address], [place], [id number], Progress Notes * Tien GARCIAOB:1955 (69 yo M)Acc No.[id number]:02/14/2025 Progress Notes Patient: Tien REAL Provider: Jorge Larson M.D. :1955 A ge:69 Y S ex:Male Date:02/14/2025 Address:[address] [place] [address], [id number] Subjective: * Chief Complaints: * 1 . Cough, minor congestion for about 3 weeks. * HPI: E NT/respiratory: 69 year old male presents with c/o cough P t complains of dry without any sputum production cough for about 3 weeks. Associated with nasal congestion. * ROS: D ERMATOLOGY: no R ana. [...] Nerve Decompression and Lumbar Fusion- Dr. Ordonez [place] 10/02/2021, Gastric Tube 05/2022, [facility]- right elbow infection debridement 02/2023, Rt Nephrectomy- [facility] 06/02/2024, Right shoulder replacement 09/2024. * Family History: F ather: alive. M [...] outpatient rehab 02/21. * Medications: T aking Align 4 MG Capsule as directed Orally , Taking Budesonide 3 MG Capsule Delayed Release Particles 3 capsules Orally Once a day in the evening , Taking FiberCon 625 MG Tablet 1 tablets as needed Orally once daily , Taking CellCept 500 MG Tablet 3 tablet orally 2 times a day , Taking Ondansetron 4 MG Tablet Disintegrating 1 tablet on the tongue and allow to dissolve Orally Two times a day , Taking ALPRAZolam 0.25 MG Tablet 1 tablet Orally Twice a day , Taking Potassium Chloride ER 10 MEQ Tablet Extended Release 1 tablet with food Orally once daily , Taking Levothyroxine Sodium 50 MCG Tablet 1 tab(s) orally once a day , Taking Fenofibrate 145 mg Tablet 1 tablet Orally Once a day , Taking Omeprazole 20 MG Capsule Delayed Release 1 cap(s) orally once a day , Taking Allopurinol 300 mg Tablet TAKE ONE TABLET BY MOUTH EVERY DAY , Taking QUEtiapine Fumarate 200 MG Tablet 1 tab(s) orally once a day (in the evening) , Taking Tamsulosin HCl 0.4 MG Capsule 1 capsule Orally Once a day , Taking busPIRone HCl 10 MG Tablet 1 tablet Orally Twice a day , Taking DULoxetine HCl 60 mg Capsule Delayed Release Particles TAKE TWO CAPSULES BY MOUTH ONCE DAILY , Medication List reviewed and reconciled with the patient * Allergies: N .K.D.A. Objective: * Vitals: W t: 224.4, Temp: 98.6, BP: 108/72, HR: 93, O2 Sat: 98% on RA, Nurse: marly, Ht: 73.50, BMI:29.2. * Examination: E NT/Respiratory: General Appearance: N AD. E yes: P ERRLA, sclera clear. O ral cavity : n o erythema or exudate seen on pharynx. N deon : n o cervical lymphadenopathy. H eart : R RR, normal S1 S2. L ungs: c lear to auscultation bilaterally. Assessment: * Assessment: 1. C ough, unspecified type - R05.9 (Primary) 2 . T ype 2 diabetes mellitus without complications - E11.9 3 . E ssential (primary) hypertension - I10 ? 4 . H yperlipidemia, unspecified - E78.5 5 . P rostate cancer screening - Z12.5 6 . B SD 29.0-29.9,adult - Z68.29 Plan: * Treatment: Value Reference Range w bc 6.2 3.5 - 10 * l ym 30.4% 15 - 50 * m id 7.1% 2 - 15 * g ran 62.5% 35 - 80 * r bc 4.93 3.5 - 5.5 * h gb 13.0 11.5 - 16.5 * h ct 41.2 35 - 55 * m cv 83.6 75 - 100 * m ch 26.5 25 - 35 * m chc 31.7 31 - 38 * p lat 235 100 - 400 * Nataliia Fletcher 02/14/2025 11:26: 14 AM > Provider reviewed results while patient in office. ?Imaging: CXR (Performed Date - 02/15/2025)?nothing acute* Nataliia Fletcher 02/16/2025 1:31:59 PM > Pt informed 2.?Type 2 diabetes mellitus without complications?LAB: P-Comprehensive Metabolic Panel (CMP) (Collection Date & Time - 02/14/2025 11:06 AM)?Normal* Value Reference Range A /G Ratio 2.1 1.1-2.5 - * A lbumin 4.3 3.5-5.3 - g/dL * A lkaline Phosphatase 48 40-129 - IU/L * A LT (SGPT) 10 <5-55 - IU/L * A ST (SGOT) 18 <5-46 - IU/L * B ilirubin, Total 0.3 <0.2-1.2 - mg/dL * B UN 19 8-23 - mg/dL * C alcium 9.2 8.6-10.4 - mg/dL * C hloride 103 97-108 - mmol/L * C O2 26 22-32 - mmol/L * C reatinine 1.25 0.70-1.30 - mg/dL * G lucose 109 H 65-99 - mg/dL * P otassium 4.1 3.5-5.3 - mmol/L * S odium 140 135-145 - mmol/L * P rotein 6.3 6.0-8.3 - g/dL * e GFR by Creatinine 61 >59 - mL/min/1.73m2 * Nataliia Fletcher 02/15/2025 11:43:2 0 AM > Pt informed ?LAB: P-Hemoglobin A1C (Collection Date & Time - 02/14/2025 11:06 AM)?Normal * Value Reference Range H emoglobin A1C 5.6 <5.7 - % * Nataliia Fletcher 02/15/2025 11:43:2 0 AM > Pt informed 3.?Essential (primary) hypertension?LAB: P-Comprehensive Metabolic Panel (CMP) (Collection Date & Time - 02/14/2025 11:06 AM)?Normal* Value Reference Range A /G Ratio 2.1 1.1-2.5 - * A lbumin 4.3 3.5-5.3 - g/dL * A lkaline Phosphatase 48 40-129 - IU/L * A LT (SGPT) 10 <5-55 - IU/L * A ST (SGOT) 18 <5-46 - IU/L * B ilirubin, Total 0.3 <0.2-1.2 - mg/dL * B UN 19 8-23 - mg/dL * C alcium 9.2 8.6-10.4 - mg/dL * C hloride 103 97-108 - mmol/L * C O2 26 22-32 - mmol/L * C reatinine 1.25 0.70-1.30 - mg/dL * G lucose 109 H 65-99 - mg/dL * P otassium 4.1 3.5-5.3 - mmol/L * S odium 140 135-145 - mmol/L * P rotein 6.3 6.0-8.3 - g/dL * e GFR by Creatinine 61 >59 - mL/min/1.73m2 * Aide Fletcherira 02/15/2025 11:43:2 0 AM > Pt informed 4.?Hyperlipidemia, unspecified?LAB: P-Comprehensive Metabolic Panel (CMP) (Collection Date & Time - 02/14/2025 11:06 AM)?Normal* Value Reference Range A /G Ratio 2.1 1.1-2.5 - * A lbumin 4.3 3.5-5.3 - g/dL * A lkaline Phosphatase 48 40-129 - IU/L * A LT (SGPT) 10 <5-55 - IU/L * A ST (SGOT) 18 <5-46 - IU/L * B ilirubin, Total 0.3 <0.2-1.2 - mg/dL * B UN 19 8-23 - mg/dL * C alcium 9.2 8.6-10.4 - mg/dL * C hloride 103 97-108 - mmol/L * C O2 26 22-32 - mmol/L * C reatinine 1.25 0.70-1.30 - mg/dL * G lucose 109 H 65-99 - mg/dL * P otassium 4.1 3.5-5.3 - mmol/L * S odium 140 135-145 - mmol/L * P rotein 6.3 6.0-8.3 - g/dL * e GFR by Creatinine 61 >59 - mL/min/1.73m2 * Nataliia Fletcher 02/15/2025 11:43:2 0 AM > Pt informed ?LAB: P-Lipid Panel (Collection Date & Time - 02/14/2025 11:06 AM)?Normal* Value Reference Range C holesterol / HDL Ratio 3.34 0.00-4.99 - Ratio * C holesterol 177 <200 - mg/dL * H DL Cholesterol 53 >39 - mg/dL * L DL Cholesterol (Calculation) 98 <130 - mg/d L * L DL/HDL Ratio 1.8 <3.3 - Ratio * N on-HDL Cholesterol 124 <130 - mg/dL * T riglycerides 132 <150 - mg/dL * Nataliia Fletcher 02/15/2025 11:43:2 0 AM > Pt informed 5.?Prostate cancer screening?LAB: P-PSA (Collection Date & Time - 02/14/2025 11:06 AM)?Normal* Value Reference Range P SA 0.03 <4.00 - ng/mL * Nataliia Fletcher 02/15/2025 11:43:2 0 AM > Pt informed * Labs: * L ab: Estimated Average Glucose (Collection Date & Time - 02/14/2025 11:06 AM) N ormal Value Reference Range E stimated Average Glucose 114 - mg/dL * [facility], IT support 02/15/2025 04:50:11 : This order was created by the Interface. Nataliia Fletcher 02/15/2025 11:43:20 AM > Pt informed * Procedure Codes: G 2211 Complex e/[place], [address] CBC WITH AUTO DIFF, G8752 MOST RECENT SYSTOLIC BP < 140MM HG, G8754 MOST RECENT DIASTOLIC BP < 90MM HG, 3044F HG A1C LEVEL LT 7.0% * Follow Up: 6 Months * Images: Billing Information: * Visit Code: 71771 Office Visit, Est Pt., Level 4. * Procedure Codes: G2211 Complex e/[place]. [address] CBC WITH AUTO DIFF. G8752 MOST RECENT SYSTOLIC BP < 140MM HG. G8754 MOST RECENT DIASTOLIC BP < 90MM HG. 3044F HG A1C LEVEL LT 7.0%. * Electronic signature of Goldie Larson MD on 09/17/2025 at 11:12 AM EST Sign off status: Pending * Provider: Jorge Larson M.D. Date: 0 02/14/2025 Generated for Marquesi ng/Fajessieg/eTransmitting on: 1 11/18/2024 11:12 AM EST History and Physical Notes * HPI (History of Present Illness) Category Sub-Category Detail Notes Category Not es ENT/respiratory cough Pt complains of dry without any sputum production cough for about 3 weeks. Associated with nasal congestion Examination Category Sub-Category Detail Notes Category Not es ENT/Respiratory Oral cavity : no erythema or exudate s een on pharynx Neck : no cervical lymphade nopathy Heart : RRR, normal S1 S2 Lungs: clear to auscultatio n bilaterally General Appearance: NAD Eyes: PERRLA, sclera clear
--- OUTSIDE RECORDS SUMMARY | 2025-08-16 04:15 | XMS_ITS ---
Author Organization [facility] Address [address] [place] [id number] Care Team Providers Care Bow Machine Operator Name Role Phone Mumtaz Larson Primary Care Provider Allergies No Known Allergies Results Component Value Reference Range Notes Glycohemoglobin A1c (in hous e) Reviewed date:08/16/2025 11:20:47 AM Interpretation:5.4% Performing Lab: Notes/Report: 5.4% glycohemoglobin 5.4% 5 - 6.5 % REASON FOR VISIT 6 months Medications Medication SIG (Take, Route, Frequency, Duration) Notes Start Date End Date Status CellCept 500 MG 3 tablet orally 2 ti mes a day Active Ondansetron 4 MG 1 tablet on the tong ue and allow to dissolve Orally Two times a day; Duration: 30 day(s) 04/06/2024 Active FiberCon 625 MG 1 tablets as needed Orally once daily Active ALPRAZolam 0.25 MG 1 tablet Orally Twic e a day 04/10/2024 Active Potassium Chloride ER 10 MEQ 1 tablet wi th food Orally once daily 04/10/2024 Active Align 4 MG as directed Orally Active Levothyroxine Sodium 50 MCG 1 tab(s) ora lly once a day; Duration: 90 days Active QUEtiapine Fumarate 200 MG 1 tab(s) oral ly once a day (in the evening); Duration: 90 days Active Budesonide 3 MG 3 capsules Orally On ce a day in the evening Active Allopurinol 300 mg TAKE ONE TABLET BY M OUTH EVERY DAY; Duration: 90 days Active DULoxetine HCl 60 mg 2 capsules orally o nce a day; Duration: 90 days Active busPIRone HCl 10 MG 1 tablet Orally Twic e a day; Duration: 90 days Active Fenofibrate 145 mg 1 tablet Orally Once a day; Duration: 90 days Active hydrOXYzine HCl 25 MG 1 or 2 tablets at bed time Orally Once a day As needed 06/25/2025 Active Omeprazole 20 MG 1 cap(s) orally once a day; Duration: 90 days Active Tamsulosin HCl 0.4 MG 1 capsule Orally O nce a day; Duration: 90 days Active Vital Signs Blood pressure systolic 116 mm Hg 08/16/20 25 Blood pressure diastolic 72 mm Hg 025 Heart Rate 87 /min 08/16/2025 Height 73.50 in 08/16/2025 Weight 203.8 lbs 08/16/2025 BMI 26.52 kg/m2 08/16/2025 Encounters Encounter Location Date [facility] [address] [phone] 08/16/2025 Mumtaz Larson Type 2 diabetes ann marie itus without complications E11.9 ; Essential (primary) hypertension I10 ; Hyperlipidemia, unspecified E78.5 ; Acquired hypothyroidism E03.9 ; Depression with anxiety F41.8 ; Gastroesophageal reflux disease, unspecified whether esophagitis present K21.9 and Chronic gout, unspecified, without tophus (tophi) M1A.9XX0 Assessments Encounter Date Diagnosis (ICD Code) Assessment Notes Treatment Notes Treatment Clinical Notes Section Notes 08/16/2025 Type 2 diabetes mellitus without complications (ICD-10 - E11.9) 08/16/2025 Essential (primary) hypertension (ICD-10 - I10) 08/16/2025 Hyperlipidemia, unspecified (ICD-10 - E78.5) 08/16/2025 Acquired hypothyroidism (ICD-10 - E03.9) 08/16/2025 Depression with anxiety (ICD-10 - F41.8) 08/16/2025 Gastroesophageal reflux disease, unspecified whether esophagitis present (ICD-10 - K21.9) 08/16/2025 Chronic gout, unspecified, without tophus (tophi) (ICD-10 - M1A.9XX0) Plan Of Treatment Medication Medication Name Sig Start Date Stop Date Notes Levothyroxine Sodium 50 MCG 1 tab(s) ora lly once a day; Duration: 90 days QUEtiapine Fumarate 200 MG 1 tab(s) oral ly once a day (in the evening); Duration: 90 days Allopurinol 300 mg TAKE ONE TABLET BY M OUTH EVERY DAY; Duration: 90 days DULoxetine HCl 60 mg 2 capsules orally o nce a day; Duration: 90 days busPIRone HCl 10 MG 1 tablet Orally Twic e a day; Duration: 90 days Fenofibrate 145 mg 1 tablet Orally Once a day; Duration: 90 days Omeprazole 20 MG 1 cap(s) orally once a day; Duration: 90 days Tamsulosin HCl 0.4 MG 1 capsule Orally O nce a day; Duration: 90 days Next Appt Details Follow Up: 6 Months, Reason: Provider Name:Mumtaz kee, 09/18/2025 10:15:00 AM, [address] [facility] [address] [facility], [address], [place], [phone], Provider Name:Mumtaz kee, 02/14/2026 09:30:00 AM, [address] [place] [address] [address] [facility], [address], [place], [place], [phone], Progress Notes * Tien GARCIAMaryOB:1955 (69 yo M)Acc No.[id number]:08/16/2025 Progress Notes Patient: Tien REAL Provider: Jorge Larson M.D. :1955 A ge:69 Y S ex:Male Date:08/16/2025 Address:[address] [address], [place] [id number] Subjective: * Chief Complaints: * 1 . 6 months. * HPI: C ardiology: 69 year old male presents with c/o Blood Pressure Elevated P t states he is doing well and has no concerns at this time. Pt states he does need refills. c/o Hyperlipidemia P t is fasting today. E ndocrinology: c/o Recent Blood Sugars. * Medical History: H ypertension, Type 2 Diabetes , Hyperlipidemia, Acid Reflux, Hiatal Hernia, Gout, Depression, Psoriatic Arthritis, Chronic Diarrhea, GI evaluation 2016, Dx with Microscopic colitis, Prostate Cancer - [...] Nerve Decompression and Lumbar Fusion- Dr. Ordonez Wenona 10/02/2021, Gastric Tube 05/2022, [facility]- right elbow infection debridement 02/2023, Rt Nephrectomy- [facility] 06/02/2024, Right shoulder replacement 09/2024. * Hospitalization/Major Diagno stic Procedure: D enies Past Hospitalization. * Family History: F ather: alive. M other: alive, basal cell skin cancer. 2 brother(s) , 2 sister(s) . 1 son(s) , 1 daughter(s) . . * Social History: C URRENT TOBACCO USE: No S moking Status: Patient does NOT smoke. [...] with food Orally once daily , Taking QUEtiapine Fumarate 200 MG Tablet 1 tab(s) orally once a day (in the evening) , Taking Levothyroxine Sodium 50 MCG Tablet 1 tab(s) orally once a day , Taking Allopurinol 300 mg Tablet TAKE ONE TABLET BY MOUTH EVERY DAY , Taking Omeprazole 20 MG Capsule Delayed Release 1 cap(s) orally once a day , Taking busPIRone HCl 10 MG Tablet 1 tablet Orally Twice a day , Taking DULoxetine HCl 60 mg Capsule Delayed Release Particles 2 capsules orally once a day , Taking Fenofibrate 145 mg Tablet 1 tablet Orally Once a day , Taking Tamsulosin HCl 0.4 MG Capsule 1 capsule Orally Once a day , Taking hydrOXYzine HCl 25 MG Tablet 1 or 2 tablets at bed time Orally Once a day As needed, Medication List reviewed and reconciled with the patient * Allergies: N .K.D.A. Objective: * Vitals: W t: 203.8, Temp: 98.3, BP: 116/72, HR: 87, Nurse: JADEN, Ht: 73.50, BMI:26.52. * Examination: E ndocrinology: General Appearance: N AD. H eart: R SR. L ungs:?clear to auscultation. E xtremities: n o leg edema. Assessment: * Assessment: 1. T ype 2 diabetes mellitus without complications - E11.9 (Primary) 2 . E ssential (primary) hypertension - I10 3 . H yperlipidemia, unspecified - E78.5? 4. A cquired hypothyroidism - E03.9 5 . D epression with anxiety - F41.8 6 . G astroesophageal reflux disease, unspecified whether esophagitis present - K21.9 7 . C hronic gout, unspecified, without tophus (tophi) - M1A.9XX0 Plan: * Treatment: Value Reference Range g lycohemoglobin 5.4% 5 - 6.5 % * Kaitlynn Amos 08/16/2025 09 :53:53 AM EDT > Provider reviewed results while patient in office. 2.?Hyperlipidemia, unspecified? Refill Fenofibrate Tablet, 145 mg, 1 tablet, Orally, Once a day, 90 days, 90, Refills 1.??3.?Acquired hypothyroidism? Refill Levothyroxine Sodium Tablet, 50 MCG, 1 tab(s), orally, once a day, 90 days, 90, Refills 1. ?4.?Depression with anxiety? Refill DULoxetine HCl Capsule Delayed Release Particles, 60 mg, 2 capsules, orally, once a day, 90 days, 180, Refills 1;?Refill busPIRone HCl Tablet, 10 MG, 1 tablet, Orally, Twice a day, 90 days, 180, Refills 1;?Refill QUEtiapine Fumarate Tablet, 200 MG, 1 tab(s), orally, once a day (in the evening), 90 days, 90, Refills 1.??5.?Gastroesophageal reflux disease, unspecified whether esophagitis present? Refill Omeprazole Capsule Delayed Release, 20 MG, 1 cap(s), orally, once a day, 90 days, 90, Refills 1.??6.?Chronic gout, unspecified, without tophus (tophi)? Refill Allopurinol Tablet, 300 mg, TAKE ONE TABLET BY MOUTH EVERY DAY, 90 days, 90, Refills 1.??7.?Others? Refill Tamsulosin HCl Capsule, 0.4 MG, 1 capsule, Orally, Once a day, 90 days, 90, Refills 1.? * Procedure Codes: G 2211 Complex e/[place], [address] CAPILLARY BLOOD DRAW, 32640 GLYCATED HEMOGLOBIN TEST, Modifiers: QW , 3044F HG A1C LEVEL LT 7.0%, 1036F TOBACCO NON-USER, G8950 PREHTN/HTN BP DOC INDCD F/U DOC, G8752 MOST RECENT SYSTOLIC BP < 140MM HG, G8754 MOST RECENT DIASTOLIC BP < 90MM HG, 3074F SYST BP LT 130 MM HG, 3078F DIAST BP < 80 MM HG * Follow Up: 6 Months * Images: Billing Information: * Visit Code: 10683 Office Visit, Est Pt., Level 4. * Procedure Codes: G2211 Complex e/[place]. [address] CAPILLARY BLOOD DRAW. 77749 GLYCATED HEMOGLOBIN TEST. Modifiers: QW 3044F HG A1C LEVEL LT 7.0%. 1036F TOBACCO NON-USER. G8950 PREHTN/HTN BP DOC INDCD F/U DOC. G8752 MOST RECENT SYSTOLIC BP < 140MM HG. G8754 MOST RECENT DIASTOLIC BP < 90MM HG. 3074F SYST BP LT 130 MM HG. 3078F DIAST BP < 80 MM HG. * Electronic signature of Goldie Larson MD on 09/17/2025 at 11:11 AM EST Sign off status: Pending * Provider: Jorge Larson M.D. Date: Generated for Alice salter/Jayy/Argenis on: 11/18/2024 11:11 AM EST History and Physical Notes * HPI (History of Present Illness) Category Sub-Category Detail Notes Category Not es Endocrinology Recent Blood Sugars Cardiology Blood Pressure Elevated Pt state s he is doing well and has no concerns at this time. Pt states he does need refills Hyperlipidemia Pt is fasting today Examination Category Sub-Category Detail Notes Category Not es Endocrinology Heart: RSR Lungs: clear to auscultatio n Extremities: no leg edema General Appearance: NAD
--- OUTSIDE RECORDS SUMMARY | 2025-09-10 09:00 | XMS_ITS ---
Author Organization [facility] Address [address] [place] [id number] Care Team Providers Care Fishing Rod Mechanic Name Role Phone Mumtaz Larson Primary Care Provider Allergies No Known Allergies Results Component Value Reference Range Notes CBC Fingerstick (in house) Reviewed date:09/10/2025 09:49:05 PM Interpretation: Performing Lab: Notes/Report: wbc 14.9 3.5 - 10 lym 28.6% 15 - 50 mid 7.1% 2 - 15 gran 64.3% 35 - 80 rbc 5.49 3.5 - 5.5 hgb 14.5 11.5 - 16.5 hct 44.7 35 - 55 mcv 81.3 75 - 100 mch 26.4 25 - 35 mchc 32.5 31 - 38 plat 314 100 - 400 REASON FOR VISIT poss stomach bug Medications Medication SIG (Take, Route, Frequency, Duration) Notes Start Date End Date Status Zithromax Z-Blane 250 MG as directed Orall y daily; Duration: 5 days 09/10/2025 Active Promethazine-DM 6.25-15 MG/5ML 5 mL as needed Orally every 6 hrs 09/10/2025 Active Levothyroxine Sodium 50 MCG 1 tab(s) ora lly once a day; Duration: 90 days Active Allopurinol 300 mg TAKE ONE TABLET BY M OUTH EVERY DAY; Duration: 90 days Active QUEtiapine Fumarate 200 MG 1 tab(s) oral ly once a day (in the evening); Duration: 90 days Active busPIRone HCl 10 MG 1 tablet Orally Twic e a day; Duration: 90 days Active DULoxetine HCl 60 mg 2 capsules orally o nce a day; Duration: 90 days Active Omeprazole 20 MG 1 cap(s) orally once a day; Duration: 90 days Active Fenofibrate 145 mg 1 tablet Orally Once a day; Duration: 90 days Active Tamsulosin HCl 0.4 MG 1 capsule Orally O nce a day; Duration: 90 days Active hydrOXYzine HCl 25 MG 1 or 2 tablets at bed time Orally Once a day As needed 06/25/2025 Active Potassium Chloride ER 10 MEQ 1 tablet wi th food Orally once daily 04/10/2024 Active CellCept 500 MG 3 tablet orally 2 ti mes a day Active ALPRAZolam 0.25 MG 1 tablet Orally Twic e a day 04/10/2024 Active Ondansetron 4 MG 1 tablet on the tong ue and allow to dissolve Orally Two times a day; Duration: 30 day(s) 04/06/2024 Active Budesonide 3 MG 3 capsules Orally On ce a day in the evening Active Align 4 MG as directed Orally Active FiberCon 625 MG 1 tablets as needed Orally once daily Active Vital Signs Blood pressure systolic 122 mm Hg 09/10/20 25 Blood pressure diastolic 74 mm Hg 025 Heart Rate 90 /min 09/10/2025 Height 73.50 in 09/10/2025 Weight 196.4 lbs 09/10/2025 BMI 25.56 kg/m2 09/10/2025 Encounters Encounter Location Date Provider Diagnosis [facility] [address] [id number] 09/10/2025 [place]taz [place] Acute cough R05.1 an d Nausea and vomiting, unspecified vomiting type R11.2 Assessments Encounter Date Diagnosis (ICD Code) Assessment Notes Treatment Notes Treatment Clinical Notes Section Notes 09/10/2025 Acute cough (ICD-10 - R05.1) 09/10/2025 Nausea and vomiting, unspecified vomiting type (ICD-10 - R11.2) Plan Of Treatment Medication Medication Name Sig Start Date Stop Date Notes Zithromax Z-Blane 250 MG as directed Orall y daily; Duration: 5 days 09/10/2025 Promethazine-DM 6.25-15 MG/5ML 5 mL as n eeded Orally every 6 hrs 09/10/2025 Next Appt Details Follow Up: prn, Reason: Provider Name:Mumtaz Rae vidhya, 09/18/2025 10:15:00 AM, [facility], [address], [place], [phone], Provider Name:Mumtaz kee, 02/14/2026 09:30:00 AM, [address] [facility] [address] [facility], [address], [place], [phone], Progress Notes * Tien GARCIAMaryOB:1955 (69 yo M)Acc No.[id number]:09/10/2025 Progress Notes Patient: Tien REAL Provider: Jorge Larson M.D. :1955 A ge:69 Y S ex:Male Date:09/10/2025 Address:[address] [place] [address], [id number] Subjective: * Chief Complaints: * 1 . Poss stomach bug. * HPI: E NT/respiratory: 69 year old male presents with c/o cough P t complains of dry without any sputum production cough for about 1 week. Pt states cough gets rather vicious at times . Pt states he has also had a fever, nausea and vomiting . 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 * Hospitalization/Major [...] with food Orally once daily , Taking hydrOXYzine HCl 25 MG Tablet 1 or 2 tablets at bed time Orally Once a day As needed, Taking Tamsulosin HCl 0.4 MG Capsule 1 capsule Orally Once a day , Taking Fenofibrate 145 mg Tablet 1 tablet Orally Once a day , Taking DULoxetine HCl 60 mg Capsule Delayed Release Particles 2 capsules orally once a day , Taking busPIRone HCl 10 MG Tablet 1 tablet Orally Twice a day , Taking Omeprazole 20 MG Capsule Delayed Release 1 cap(s) orally once a day , Taking Allopurinol 300 mg Tablet TAKE ONE TABLET BY MOUTH EVERY DAY , Taking Levothyroxine Sodium 50 MCG Tablet 1 tab(s) orally once a day , Taking QUEtiapine Fumarate 200 MG Tablet 1 tab(s) orally once a day (in the evening) , Medication List reviewed and reconciled with the patient * Allergies: N .K.D.A. Objective: * Vitals: W t: 196.4, Temp: 98.5, BP: 122/74, HR: 90, Nurse: kk, Ht: 73.50, BMI:25.56. * Examination: E NT/Respiratory: General Appearance: N AD. E yes: P ERRLA, sclera clear. O ral cavity : e rythema without exudate on pharynx. N deon : n o cervical lymphadenopathy. H eart : R RR, normal S1 S2. L ungs: c lear to auscultation bilaterally. Abdomen : B S present, soft, nontender. Assessment: * Assessment: 1. A cute cough - R05.1 (Primary) 2 . N ausea and vomiting, unspecified vomiting type - R11.2 Plan: * Treatment: Value Reference Range w bc 14.9 3.5 - 10 * l ym 28.6% 15 - 50 * m id 7.1% 2 - 15 * g ran 64.3% 35 - 80 * r bc 5.49 3.5 - 5.5 * h gb 14.5 11.5 - 16.5 * h ct 44.7 35 - 55 * m cv 81.3 75 - 100 * m ch 26.4 25 - 35 * m chc 32.5 31 - 38 * p lat 314 100 - 400 * Nataliia Fletcher 09/10/2025 01:58 :31 PM EST > Provider reviewed results while patient in office.Mumtaz Larson 09/10/2025 09:48:52 PM EST > * Procedure Codes: 3 6416 CAPILLARY BLOOD DRAW, 86530 CBC WITH AUTO DIFF * Follow Up: p rn * Images: Billing Information: * Visit Code: 58874 Office Visit, Est Pt., Level 3. * Procedure Codes: 02897 CAPILLARY BLOOD DRAW. 22972 CBC WITH AUTO DIFF. * Electronic signature of Golide Larson MD on 09/17/2025 at 11:12 AM EST Sign off status: Pending * Provider: Jorge Larson M.D. Date: 11/10/2024 Generated for Alice salter/Jayy/eTwillsmitting on: 11/18/2024 11:12 AM EST History and Physical Notes * HPI (History of Present Illness) Category Sub-Category Detail Notes Category Not es ENT/respiratory cough Pt complains of dry without any sputum production cough for about 1 week. Pt states cough gets rather vicious at times . Pt states he has also had a fever, nausea and vomiting Examination Category Sub-Category Detail Notes Category Not es ENT/Respiratory Oral cavity : erythema without exudate on pharynx Neck : no cervical lymphade nopathy Heart : RRR, normal S1 S2 Lungs: clear to auscultatio n bilaterally Abdomen : BS present, soft, no ntender General Appearance: NAD Eyes: PERRLA, sclera clear
[2025-09-15 20:14] LABS: Coronavirus 19, PCR Not Detected (NotDetected)
[2025-09-15 20:53] LABS: Influenza A, PCR Not Detected (NotDetected); Influenza B, PCR Not Detected (NotDetected)
--- OUTSIDE RECORDS SUMMARY | 2025-09-17 11:10 | XMS_ITS | Clinical Summary ---
Author Organization [facility] Address [address] [place] [address] Phone Care Team Providers Care Senior Web Developer Name Role Phone Oli Hylton MD [ ] Conditions or Problems Problem Name Problem Code Onset Date Status Entry Date Provider Comment Standard Description Annotate Chronic osteomyeliti s right elbow 514019819 (SNOMED CT) 01/28 Resolved 01/28 Ana Jose Chronic osteomyelitis of pelvis Chronic osteomyeliti s, right humerus/elbo w M86.621 (ICD-10-CM ) 02/24 Active 02/24 Ana Jose Other chronic osteomyelitis, right humerus Acute osteomyeliti s, right elbow 74552099 (SNOMED CT) 01/28 Resolved 01/28 Ana Jose Acute osteomyelitis of cranium Acute osteomyeliti s, right humerus/elbo w 074085056 (SNOMED CT) 02/24 Active 02/24 Ana Jose Acute osteomyelitis of humerus Acute osteomyeliti s, right elbow 25402163 (SNOMED CT) 01/28 Removed 01/28 Dina Edelen Acute osteomyelitis of cranium Chronic osteomyeliti s right elbow 530442597 (SNOMED CT) 01/28 Removed 01/28 Dina Edelen Chronic osteomyelitis of pelvis Cellulitis of right elbow L03.113 (ICD-10-CM ) 01/28 Active 01/28 Dina Edelen Cellulitis of right upper limb Diabetes mellitus type II 17066551 (SNOMED CT) 01/28 Active 01/28 Dina Edelen Type 2 diabetes mellitus Myasthenia gravis 28219215 (SNOMED CT) 01/28 Active 01/28 Dina Ruiz Myasthenia gravis Personal history of immunosuppre ssion therapy 708862901 (SNOMED CT) 01/28 Active 01/28 Dina Ruiz History of immunosuppressiv e therapy Medications Medication Instructions Start Date Stop Date Generic Name NDC Provider CEFTRIAXONE SODIUM 1 GM SOLR 2gm Q 24hrs HH [facility] Dose, labs, line care 03/16 ceftriaxone 96899719691 Rosemary Isbell CEPHALEXIN 500 MG CAPS Take 2 capsule by mouth twice a day 05/15 cephalexin 41566430052 Oli Hylton MD CEFTRIAXONE SODIUM 1 GM SOLR 2gm Q 24hrs HH BHI/LIDC Dose, labs, line care 03/16 ceftriaxone 16879475571 Sheila Childs BUDESONIDE 3 MG CPEP three caps po daily budesonide 40833866625 Cailin Lilly OMEPRAZOLE 20 MG CPDR omeprazole 27523727051 Cailin Lilly ATENOLOL-CHLORTH ALIDONE 100-25 MG TABS 1/2 tab atenolol-chlorth al idone 60511082952 Cailin Lilly duloxetine 60 mg capsule, delayed rel sprinkle duloxetine Cailin Lilly CLINDAMYCIN HCL 300 MG CAPS clindamycin hcl 64457899738 Cailin Luther ang FIBERCON 625 MG TABS calcium polycarbophil 52986445488 Cailin Lilly OMEPRAZOLE 40 MG CPDR 01/29 omeprazole 53972109740 Silvia Werner PROMETHAZINE HCL 12.5 MG TABS promethazine 07004671652 Silvia Werner MYCOPHENOLATE MOFETIL 500 MG TABS mycophenolate mofetil 87702616896 Silvia Werner QUETIAPINE FUMARATE 200 MG TABS quetiapine 87949278275 Silvia Werner FENOFIBRATE 145 MG TABS fenofibrate nanocrystallized 90384632640 Silvia Werner ALLOPURINOL 300 MG TABS allopurinol 22832987757 Silvia Werner LEVOTHYROXINE SODIUM 50 MCG TABS levothyroxine 92119148233 Silvia Werner SULFAMETHOXAZOLE -TRIMETHOPRIM 800-160 MG TABS sulfamethoxazole -t rimethoprim 20173525859 Silvia Werner ONDANSETRON 4 MG TBDP ondansetron 60042217760 Silvia Werner BUSPIRONE HCL 10 MG TABS buspirone 98737948935 Silvia Werner POTASSIUM CHLORIDE AFSHAN ER 20 MEQ CR-TABS potassium chloride 77907558591 M angela Werner BUDESONIDE 3 MG CPEP 01/29 budesonide 30191178079 Silvia Werner NA SULFATE-K SULFATE-MG SULF 17.5-3.13-1.6 GM/177ML SOLN sodium,potassium ,m ag sulfates 02878966393 Silvia Werner Medications Administered No information available. [...] CPT-araceli New Oral Antibiotic CPT-PICREM PICC Removal CPT-98093 C- reactive protein CPT-53508 Sedimentation Rate (ESR) 202 12/20/29 CPT-ca Continue IV antibiotics 2022 CPT-50392 CMP CPT-69287 CBC w/o Differential CPT-48642 Sedimentation Rate (ESR) 202 12/20/21 CPT-ca Continue IV antibiotics 2022 CPT-wpc Weekly PICC Line Care 03/01 CPT-cwl Weekly Labs (Continue) 03/01 CPT-09853 CMP CPT-75638 CBC w/o Differential CPT-95643 Sedimentation Rate (ESR) 202 12/20/14 CPT-labs Labs CPT-ca Continue IV antibiotics 2022 CPT-wpc Weekly PICC Line Care 02/23 CPT-cwl Weekly Labs (Continue) 02/23 CPT-46263 CMP CPT-08356 CBC w/o Differential CPT-82854 Sedimentation Rate (ESR) 202 12/20/08 CPT-71117 Sedimentation Rate (ESR) 202 12/21/07 CPT-33268 CMP [id number] CBC with Differential 2022 CPT-sl STAT Labs CPT-sl STAT Labs CPT-sl STAT Labs CPT-ca Continue IV antibiotics 2022 CPT-wpc Weekly PICC Line Care 02/16 CPT-cwl Weekly Labs (Continue) 02/16 CPT-85073 CMP CPT-82444 CBC w/o Differential CPT-26781 Sedimentation Rate (ESR) 202 12/20/01 CPT-sl STAT Labs [id number] CBC with Differential 2022 CPT-67367 Sedimentation Rate (ESR) 202 12/20/00 CPT-51640 CMP CPT-40919 CMP CPT-30582 CBC w/o Differential CPT-99363 Sedimentation Rate (ESR) 202 12/19/24 CPT-ca Continue IV antibiotics 2022 CPT-27562 PICC Line Insertion CPT-97183 CMP CPT-63215 CBC w/o Differential CPT-61165 Sedimentation Rate (ESR) 202 12/19/17 CPT-07205 PICC Line Insertion Vital Signs Date Name [...]
--- OUTSIDE RECORDS SUMMARY | 2025-09-17 11:14 | XMS_ITS | Encounter Summary ---
Author Organization [employer] ([place], [place], [place], [place], [place]) Address [address] [place] [address] Care Team Providers Care Documentation Lead Name Role Phone Mumtaz Larson MD Primary Care Provider + [phone] Encounter Details Date Type Department Care Team (Late st Contact Info) Description 10/02/2020 Transcribed Document [facility] [place] [address] [place] [address] ProviderGabriel MD [address] [place] [address] Social History Tobacco Use Types Packs/Day Years [...] - Historical ProviderMD - 10/02/2020 5:08 PM NEWSWRITER Evaluation, Occupational Therapy Entered On: 10/03/2020 10:24 [...] EST Treatment Time : 15 Minute(s) TOSHIA OSBORN, YADIRAR/L 10/03/2020 10:20 EST History and Environment, OT [...] Railing Outside : Yes TOSHIA OSBORN, YADIRAR/L - 10/03/2020 14:08 EST Prior LOF Bathing, OT : Independent Prior LOF Bed Mobility : Independent Prior LOF Upper Body Dressing, OT : Independent Prior LOF Lower Body Dressing, OT : Independent Prior LOF Toileting : Independent Prior LOF Transfer : Independent Prior LOF Grooming, OT : Independent Prior LOF for IADLs, OT : Independent TOSHIA OSBORN, YADIRAR/L 10/03/2020 14:08 EST Upper Extremity Upper Extremity Dominance : Right Right UE Active ROM : WFL Right UE Strength : WFL Left UE Active ROM : WFL Left UE Strength : WFL TOSHIA OSBORN, YADIRAR/L 10/03/2020 14:08 EST Self Care/Home Management, OT [...] Transfer Device : Belt, gait [facility]IA OSBORN, [facility]/10/03/2020 14:08 EST Functional Mobility Mobility Grid Bed Roll Left : Supervision/set-up Bed Roll Right : Supervision/set-up Bed Scooting : Supervision/set-up Supine to Sit : Supervision/set-up Sit to Stand : Supervision/set-up Stand to Sit : Supervision/set-up TOSHIA OSBORN, [facility]/10/03/2020 14:08 EST Neurological/Sensory Overall Sensory Response : Impaired Overall Sensory Response Comment : BLEs pain from back TOSHIA OSBORN, [facility]10/03/2020 14:08 EST Cognition Assessment, OT Orientation : Oriented x 4 Cognition Assessment, OT : Intact TOSHIA OSBORN, [facility]10/03/2020 14:08 EST Visual/Perceptual/Vestibular, OT Vision Assessment, OT : Intact TOSHIA OSBORN, [facility]10/03/2020 14:08 EST Indication Assessment, OT Occupational Therapy Indicated : Yes Problem List, OT : Impaired, bed mobility, Impaired, activities daily living, Impaired, endurance tolerance, Impaired functional mobility Potential Barriers, OT : None evident Rehabilitation Potential, OT : Good TOSHIA OSBORN, [facility]/03/2020 14:08 EST Plan of Care, OT OT Tx Plan/Goals Established w Patient : Yes OT Frequency Rehab : Five days per week OT Duration Rehab : Fourteen days OT Treatments Planned : Activities of daily living, Therapeutic activities TOSHIA OSBORN, [facility]/03/2020 14:08 EST Treatment Note Subjective Comment : [...] TOSHIA OSBORN, OTR/L - 10/03/2020 14:08 EST [place] OT Charges OT Eval Low Complexity : 1 TOSHIA OSBORN OTR/L - 10/03/2020 14:08 EST Electronically signed by [facility] Conversion Chocolate Maker Cerner at 02/01/2023 7:08 PM CDT documented in this encounter Plan of Treatment Not on file documented as of this encounter Visit Diagnoses Not on filedocumented in this encounter Care Teams Documentation Lead Relationship Specialty Start Date End Date Mumtaz Larson MD [address] [place] [facility] [address] [place] [address] PCP - General Family Medicine 08/26/22 documented as of this encounter
--- OUTSIDE RECORDS SUMMARY | 2025-09-17 11:14 | XMS_ITS | Encounter Summary ---
Author Organization [employer] ([place], [place], [place], [place], [place]) Address [address] [place] [address] Care Team Providers Care Senior Energy Market Coordinator Name Role Phone Mumtaz Larson MD Primary Care Provider + [phone] Encounter Details Date Type Department Care Team (Late st Contact Info) Description 10/03/2020 Transcribed Document [facility] Family Medicine [facility] [place] [address] ProviderGabriel MD [address] [place] [address] Social History Tobacco Use Types Packs/Day Years Used Date Smoking Tobacco: Never Assessed Sex and Gender Information Value Date Recorded Sex Assigned at Male 05/13/2022 12:59 PM CDT Legal Sex Male 1:44 PM CDT Gender Identity Male 05/13/2022 12:59 PM CDT Sexual Orientation Not on file documented as of this encounter Miscellaneous Notes * Cerner Conversion Note - Gabriel Holliday MD - 10/03/2020 1:17 PM MONEY MARKET CLERK Final Discharge Planning Entered On: 10/03/2020 13:18 EST Performed On: 10/03/2020 13:17 EST by DAVID DAI RN-Retail Shift Supervisor Final Discharge Planning Discharge Arrangements : [...] : Yes Discharge To Care Management : Home/Residential/Usp or Self Care - DAVID DAI RN-Retail Shift Supervisor - 10/03/2020 13:17 EST Electronically signed by [facility] Conversion Boom Tender Cerner at 02/01/2023 6:54 PM CDT documented in this encounter Plan of Treatment Not on file documented as of this encounter Visit Diagnoses Not on filedocumented in this encounter Care Teams Senior Energy Market Coordinator Relationship Specialty Start Date End Date Mumtaz Larson MD [address] [facility] [address] [place] [address] PCP - General Family Medicine 08/26/22 documented as of this encounter
--- OUTSIDE RECORDS SUMMARY | 2025-09-17 11:14 | XMS_ITS | Encounter Summary ---
Author Organization [employer] ([place], [place], [place], [place], [place]) Address [address] [place] [address] Care Team Providers Care Marketing Developer Name Role Phone Mumtaz Larson MD Primary Care Provider + [phone] Encounter Details Date Type Department Care Team (Late st Contact Info) Description 09/27/2020 Transcribed Document [facility] Family Medicine [address] [place] [address] ProviderGabriel MD [address] [place] [address] Social History Tobacco Use Types Packs/Day Years [...] - Gabriel ProviderMD - 09/27/2020 10:27 AM PLANT PRODUCTION MANAGER PAT Adult Entered On: 09/27/2020 10:32 EST Performed On: 09/27/2020 10:27 EST by Miguel Angel Calloway Rn Vital Measurements Temperature Source : Temporal artery scanning Temperature, Fahrenheit : 98.0 Deg F Clinical Temperature, C : 36.7 Deg C Pulse Method : Pulse Oximetry Peripheral Pulse Rate : 76 bpm Blood Pressure Location : Arm, right upper Systolic Blood Pressure : 136 mmHg Diastolic Blood Pressure : 93 mmHg (HI) Oxygen Saturation : 98 % Oxygen Therapy Mode : Room air [place], Val C, Rn - 09/30/2020 11:26 EST Height and Weight, Clinical Dosing Height Source : Measured Height Entry Format : [place] Height, Feet : 6 ft(Converted to: 183 cm, 72 Inch) Height, Inches : 2 Inch(Converted to: 0 ft 2 Inch, 5.08 cm) Clinical Height : 187.96 cm Weight Source : Standing scale Weight Entry Format : [place] Clinical Dosing Weight : 129.86 kg Weight, Pounds : 285.7 lb Body Surface Area (BSA) : 2.53 m2 Body Mass Index : 36.8 kg/m2 (HI) Loyal Body Weight : 81 kg Val Rdz [...] Any Spiritual/Cultural Needs or Requests : No Methodist Preference : Zoroastrianism Miguel Angel Calloway Rn - 09/27/2020 10:27 EST [place] Suicide Severity Rating Scale (C-SSRS) CSSRS Past [...] Ambulatory Legal Guardian : Spouse Support Person/Patient Geologist : Yes Support Person/Pt Rep Name : Clare King - Support Person/Pt Rep Contact Information : [phone] Want Family/Rep/Phys Notified of Admit : No Miguel Angel Calloway Rn - 09/27/2020 10:27 EST Emergency Contact #1 : `Val Luevano Rn - 09/30/2020 11:32 EST Emergency Contact #1 Phone Number : `[phone] Emergency Contact #1 Relationship : ` Emergency Contact #2 : none` Emergency Contact #2 Phone Number : none` Emergency Contact #2 Relationship : none` Val Rdz, Rn - 09/30/2020 11:26 EST Information Obtained From : Patient Primary Language : Korean Communication Barrier : None Mixed Crop Farmer Needed : No Miguel Angel Calloway Rn [...] Angel Calloway Rn - 09/27/2020 10:27 EST Electronically signed by [facility] Conversion Topographical Surveyor Cerner at 02/01/2023 6:47 PM CDT documented in this encounter Plan of Treatment Not on file documented as of this encounter Visit Diagnoses Not on filedocumented in this encounter Care Teams Marketing Developer Relationship Specialty Start Date End Date Mumtaz Larson MD [address] [facility] [address] [place] [address] PCP - General Family Medicine 08/26/22 documented as of this encounter
--- OUTSIDE RECORDS SUMMARY | 2025-09-17 11:14 | XMS_ITS | Clinical Summary ---
Author Organization [facility] Address [address] [place] [address] Care Team Providers Care Pharmacy Order Entry Technician Name Role Phone Mumtaz Larson MD Primary Care Provider + [phone] Allergies No known active allergies Medications levothyroxine [...] MG/0.1ML nasal spray Call 911. Don't prime. [place] in 1 nostril for overdose. Repeat in [...] or training? Not on file Preferred Language Croatian 06/01/2024 Sex and Gender Information Value Date [...] ANNUAL PHYSICAL 02/02/2023 HEPATITIS C SCREENING 02/02/2023 INFLUENZA VACCINE 05/18/2025 08/03/2019, , 07/22/2017 COVID-19 Vaccine (3 - 2024-2 6 season) 2025 02/04/2021, 12/27/2020 TDAP/TD VACCINES (2 - Td or Tdap) 07/09/2032 022 AAA SCREEN ONCE Completed 11/05/2022, 11/05/2022 Pneumococcal Vaccine 50+ Completed 09/01/2023, 07/18 HEMOGLOBIN A1C Discontinued 06/01/2024, 12/0 10/2022, 02/01/2023, Additional history exists Medical Devices Implanted Type Area Senior Technical Specialist Device Identifier Shelf Expiration Date Model / Serial / Lot Reload [place] Endopath Gst 45mm Wht - [id number] Implanted:Qty : 1 on 06/02/2024 by Rasta Watson MD at [facility] Implant Right: Abdomen [employer] [id number] 11/17/2026 [id number] / / [id number] Stplr Tiss [id number] Lng [id number] Strl 1p/U - [id number] Implanted:Qty : 1 on 06/02/2024 by Rasta Watson MD at [facility] Implant Right: Abdomen [employer]O [employer] [id number] 02/14/2026 [id number] / / [id number] Clipapplr M/ Endo Ligaclip Rot 12mm Lg - [id number] Implanted:Qty : 1 on 06/02/2024 by Rasta Watson MD at [facility] Implant Right: Abdomen [employer] [id number] 04/16/2028 [id number] / / [id number] Kt Seal Hemos Abs Floseal Matrx 1.5/Fast/Prep 5000/Iu 10ml - [id number] Implanted:Qty : 1 on 06/02/2024 by Rasta Watson MD at [facility] Implant Right: Abdomen BugBuster [id number] 03/02/2025 [id number] / / [id number] Procedures Procedure Name Priority Date/Time Associated Diagnosis Comments HEMOGLOBIN A1C Routine 06/01/2024 9:37 AM EDT from Last 3 Months or Most Recently Relevant to Health Maintenance Results * Hemoglobin A1c (06/01/2024 9:37 AM EDT) Hemoglobin A1C 5.40 4.80 - 5.60 % 06/01/2024 10:18 AM EDT [facility] Blood Venipuncture / Unknown 06/01/2024 9:37 AM EDT 06/01/2024 9:59 AM EDT Narrative [facility] - 06/01/2024 10:18 AM EDT Hemoglobin A1C Ranges: Increased Risk for Diabetes 5.7% to 6.4% Diabetes >= 6.5% Diabetic Goal < 7.0% us Rasta Watson MD LAB BLOOD ORDERABLES Vida l Result [facility]
[address] [place] [address], from Last 3 Months or Most Recently Relevant to Health Maintenance Insurance [facility] Medicare [employer] PPO Care Teams Pharmacy Order Entry Technician Relationship Specialty Start Date End Date Mumtaz Larson MD [address] [facility] [address] [place], [place] [id number] PCP - General Family Medicine 02/09/23
--- OUTSIDE RECORDS SUMMARY | 2025-09-17 11:14 | XMS_ITS | Encounter Summary ---
Author Organization [employer] ([place], [place], [place], [place], [place]) Address [address] [place] [address] Care Team Providers Care Mental Health Practitioner Name Role Phone Mumtaz Larson MD Primary Care Provider + [phone] Encounter Details Date Type Department Care Team (Late st Contact Info) Description 10/02/2020 Transcribed Document [facility] [place] [facility] [place] [address] ProviderGabriel MD [address] [place] [address] Social History Tobacco Use Types Packs/Day Years Used Date Smoking Tobacco: Never Assessed Sex and Gender Information Value Date Recorded Sex Assigned at Male 05/13/2022 12:59 PM CDT Legal Sex Male 1:44 PM CDT Gender Identity Male 05/13/2022 12:59 PM CDT Sexual Orientation Not on file documented as of this encounter Miscellaneous Notes * Cerner Conversion Note - Gabriel ProviderMD - 10/02/2020 6:07 AM SCIENCE SPECIALIST Admission History, Adult Entered On: 10/02/2020 21:04 [...] Ambulatory Legal Guardian : Spouse Support Person/Patient Development Lead : Yes Support Person/Pt Rep Name : Clare King - Support Person/Pt Rep Contact Information : [phone] Want Family/Rep/Phys Notified of Admit : No Emergency Contact #1 : `Clare King Emergency Contact #1 Phone Number : `[phone] Emergency Contact #1 Relationship : ` Emergency Contact #2 : none` Emergency Contact #2 Phone Number : none` Emergency Contact #2 Relationship : none` Information Obtained From : Patient Primary Language : Malawian Communication Barrier : None Hot Dog Vender Needed : No Suni Mclain RN - [...] Scale Risk Level : 25-45 Medium Risk Jackson Fall Interventions : Adequate lighting, Assistive devices [...] Source : Measured Height Entry Format : Morton Height, Feet : 6 ft(Converted to: 183 cm, 72 Inch) Height, Inches : 2 Inch(Converted to: 0 ft 2 Inch, 5.08 cm) Clinical Height : 187.96 cm Weight Source : Standing scale Weight Entry Format : Morton Clinical Dosing Weight : 129.86 kg Weight, Pounds : 285.7 lb Body Surface Area (BSA) : 2.53 m2 Body Mass Index : 36.8 kg/m2 (HI) [place] Body Weight : 81 kg Suni Mclain [...] Suni Mclain RN - 10/02/2020 20:57 EST [place] Suicide Severity Rating Scale (C-SSRS) CSSRS Past [...] Any Spiritual/Cultural Needs or Requests : No Rastafarian Preference : Orthodox Suni Mclain RN - 10/02/2020 20:57 EST Valuables and Belongings Valuables and Belongings : Clothing Clothing : Common streetwear Clothing Disposition : With patient Suni Mclain RN - 10/02/2020 20:57 EST Electronically signed by [facility] Conversion Abrasive Wheel Molder Cerner at 02/01/2023 6:50 PM CDT documented in this encounter Plan of Treatment Not on file documented as of this encounter Visit Diagnoses Not on filedocumented in this encounter Care Teams Mental Health Practitioner Relationship Specialty Start Date End Date Mumtaz Larson MD [address] [place] [facility] [address] [place] [phone] PCP - General Family Medicine 08/26/22 documented as of this encounter
--- OUTSIDE RECORDS SUMMARY | 2025-09-17 11:14 | XMS_ITS | Encounter Summary ---
Author Organization [employer] ([place], [place], [place], [place], [place]) Address [address] [place] [address] Care Team Providers Care Production Manufacturing Worker Name Role Phone Mary Larson MD Primary Care Provider + [phone] Encounter Details Date Type Department Care Team (Late st Contact Info) Description 10/03/2020 Transcribed Document [facility] [place] [place] [facility] [place] [address] ProviderGabriel MD [address] [place], [place] [address] Social History Tobacco Use Types Packs/Day Years [...] - Gabriel ProviderMD - 10/03/2020 2:00 PM INSTRUMENT TECH [facility] [place] [address] [address] G[address]IA :1955 Visit Time:10/02/2020 Your Visit Summary Your Care Team Admitting Physician - RUSLAN FRAZIER MD-SANDEEP Attending Physician - FREDIDE, RUSLAN CRAIG MD-SANDEEP Primary Care Physician - MARY LARSON (REF), -SANDY Referring Physician - FREDDIE, RUSLAN CRAIG MD-SNU [...] EST Comments Please go to the [facility] for x-rays at 10:45 before going to your appointment at 11:30. Where: [address] [place] [address]- Business (1) Follow Up with RUSLAN FRAZIER When 10/21/2020 03:30 PM EST Comments Appointment has been made for suture/staple removal Where: [address] [place] [address] [address] [employer] (1) Medications What How Much When Instructions [...] Day in am fluticasone nasal (Flonase) 1 [place](s) Nostrils Both Every Day in am melatonin [...] follow up with their primary care provider. [employer] may reach out to them to complete contact tracing. Will my status as COVID-19 positive be reported? Because COVID-19 is a public health threat, all positive cases are reported through the local health department and the [place] Department for Public Health. Those organizations are [...] and need to call 911, notify the bowling alley operator that you have, or think you [...] clean your hands with an alcohol-based hand human resources partner that contains at least 60% alcohol. Clean your hands often. ??? Wash hands: Wash your hands often with soap and water for at least 20 seconds when visibly dirty. This is especially important after blowing your nose, coughing or sneezing, and going to the bathroom, and before eating or preparing food. ??? Hand human resources partner: Use an alcohol-based hand human resources partner with at least 60% alcohol, covering all [...] and water or put them in the finish cleaner. Clean all high-touch surfaces every day. Clean [...] or body fluids on them. ??? Household peat shredder tender and disinfectants: Clean the area or item [...] list of disinfectants can be found here: https://www.epa.gov/pesticide-registration/zflh-z-ztmcirxknfhku-kjm-sppjrkv-vb rs-cov-2 Spinal Fusion, Adult, Care After This [...] these instructions at home: Medicines ??? Take rgyg-zgf-jgfectx and prescription medicines only as told by [...] and water are not available, use hand human resources partner. ? Change your dressing as told by [...] urine clear or pale yellow. ? Take qdcz-goe-nlmivho or prescription medicines. ? Eat foods that [...] 04/23/2006 Document Revised: 06/24/2019 Document Reviewed: 09/22/2017 [employer] Patient Education ?? 2020 [employer] Inc. cyclobenzaprine [...] may report side effects to FDA at 7-680-YDX-9864. What other drugs will affect cyclobenzaprine? Using [...] drugs may affect cyclobenzaprine, including prescription and paff-rtf-yrzmnlo medicines, vitamins, and herbal products. Not all [...] to ensure that the information provided by [employer]. ('[employer]') is accurate, up-to-date, and complete, but no guarantee is made to that effect. Drug information contained herein may be time sensitive. [employer] information has been compiled for use by healthcare practitioners and consumers in the [place] and therefore [employer] does not warrant that uses outside of the [place] are appropriate, unless specifically indicated otherwise. [employer] drug information does not endorse drugs, diagnose patients or recommend therapy. [employer] drug information is an informational resource designed [...] effective or appropriate for any given patient. [facility] does not assume any responsibility for any aspect of healthcare administered with the aid of information [facility] provides. The information contained herein is not intended to cover all possible uses, directions, precautions, warnings, drug interactions, allergic reactions, or adverse effects. If you have questions about the drugs you are taking, check with your doctor, nurse or pharmacist. Copyright 1838-0294 [facility] [employer]. Version: 5.01. Revision Date: 07/13/2018. acetaminophen and [...] may report side effects to FDA at 6-339-POW-3328. What other drugs will affect acetaminophen and [...] affect acetaminophen and oxycodone, including prescription and btse-gxi-pjpwkub medicines, vitamins, and herbal products. Not all [...] to ensure that the information provided by [employer] ('[employer]') is accurate, up-to-date, and complete, but no guarantee is made to that effect. Drug information contained herein may be time sensitive. [employer] information has been compiled for use by healthcare practitioners and consumers in the [place] and therefore [employer] does not warrant that uses outside of the [place] are appropriate, unless specifically indicated otherwise. [employer] drug information does not endorse drugs, diagnose patients or recommend therapy. [employer] drug information is an informational resource designed [...] effective or appropriate for any given patient. [facility] does not assume any responsibility for any aspect of healthcare administered with the aid of information [facility] provides. The information contained herein is not intended to cover all possible uses, directions, precautions, warnings, drug interactions, allergic reactions, or adverse effects. If you have questions about the drugs you are taking, check with your doctor, nurse or pharmacist. Copyright 6127-6374 [facility] [employer]. Version: 20.. Revision Date: 11/08/2019. Emergency Awareness and Preventative [...] Assistance with quitting is available by contacting 9-762-RQJR-NOW. This is a free resource providing counseling, [...] range between ( 0.0 and 7.0 ) [place] #: 0.50 K/uL -- Normal range between ( 0.16 and 1.00 ) [place] #: 0.00 x10(3)/uL -- Normal range between ( 0.00 and 0.80 ) [place] %: 4.9 % -- Normal range between [...] ) Urine Bilirubin Dipstick: Negative Urine Specific [place]: 1.022 -- Normal range between ( 1.005 [...] was given the opportunity to ask questions. Patient/Fruit And Vegetable Inspector Name: Patient/Fruit And Vegetable Inspector Signature: Relationship to Patient: Clinician/Hospital Fruit And Vegetable Inspector Signature: Date: documented in this encounter Plan of Treatment Not on file documented as of this encounter Visit Diagnoses Not on filedocumented in this encounter Care Teams Production Manufacturing Worker Relationship Specialty Start Date End Date Mary Larson MD [address] [place] [address] [place] [phone] PCP - General Family Medicine 08/26/22 documented as of this encounter
--- OUTSIDE RECORDS SUMMARY | 2025-09-17 11:14 | XMS_ITS ---
Author Organization [employer] ([place], [place], [place], [place], [place]) [facility] [address] [facility] [facility] [place] [address] Care Team Providers Care Solar Power Installer Name Role Phone Mumtaz Larson MD Primary Care Provider [phone] Active Problems Problem Noted Date Diagnosed Date [...] 08/11/2022 Prostate cancer 08/11/2022 Thyroid disease Current Treatment and Therapy Plans No current plan information found. Past Treatment and Therapy Plans
--- OUTSIDE RECORDS SUMMARY | 2025-09-17 11:14 | XMS_ITS | Encounter Summary ---
Author Organization [employer] ([place], [place], [place], [place], [place]) Address [address] [place] [address] Care Team Providers Care Time Clock Mechanic Name Role Phone Mumtaz Larson MD Primary Care Provider + [phone] Encounter Details Date Type Department Care Team (Late st Contact Info) Description 10/03/2020 Transcribed Document [facility] [place] Family Medicine [address] [place] [address] ProviderGabriel MD [address] [place] [address] Social History Tobacco Use Types Packs/Day Years [...] - Gabriel ProviderMD - 10/03/2020 10:06 AM CUSTOMER SERVICE ASSISTANT UM Authorization Entered On: 10/03/2020 10:06 EST Performed On: 10/03/2020 10:06 EST by Jenise Hoover Rn-Utilization Review Primary Insurance Authorization Authorization and Policy Numbers : Insurance 1 Health Plan: MEDICARE Policy Number: [id number] Authorization Number: Insurance 2 Health Plan: [facility] Policy Number: [id number] Authorization Number: NPR Insurance Primary Name : MEDICARE Authorized Service Begin Date-Primary : 10/02/2020 EST Historical Authorization Comments-Primary : No Authorization Comments Found Jenise Hoover Rn-Utilization Review - 10/03/2020 10:06 EST documented in this encounter Plan of Treatment Not on file documented as of this encounter Visit Diagnoses Not on filedocumented in this encounter Care Teams Time Clock Mechanic Relationship Specialty Start Date End Date Mumtaz Larson MD [address] [facility] [address] [place] [phone] PCP - General Family Medicine 08/26/22 documented as of this encounter
--- OUTSIDE RECORDS SUMMARY | 2025-09-17 11:14 | XMS_ITS | Referral Summary ---
Author Organization [employer] ([place], [place], [place], [place], [place]) Address [address] [place] [address] Care Team Providers Care Cosmetology Educator Name Role Phone Mumtaz Larson MD Primary Care Provider + [phone] Allergies Active Allergy Reactions Criticality Noted Date [...] TAKE THREE TABLETS BY MOUTH TWICE DAILY 180 tablet 025 Active mycophenolate mofetil (CELLCEPT) 500 mg tabletIndicatio ns:Myasthenia gravis without (acute) exacerbation (HCC) TAKE THREE TABLETS BY MOUTH TWICE DAILY 360 tablet 025 2024 Discontinued Active Problems Problem Noted [...] 08/11/2022 Prostate cancer 08/11/2022 Thyroid disease Immunizations Immunization Administration Dates Next Due Influenza Quad-qiv Non [...] - 6.3 % 09/17/2023 2:13 PM EST [facility] Comment: Hemoglobin A1C levels are related to mean glucose during the preceding 2-3 months. Less than 7% demonstrates glycemic control in diabetic patients. Hemoglobin AlC % Suggested Diagnosis > or = 6.5 Diabetic 5.7 - 6.4 Prediabetic <5.7 Non-diabetic eAVG Glucose 99.67 mg/dL 09/17/2023 2:13 PM EST [facility] Blood Venipuncture / Unknown 09/17/2023 12:23 PM EST 09/17/2023 1:27 PM EST Jose Armando Hubbard MD LAB BLOOD ORDERABLES Final Res ult Performing Organization Address City/[facility]/ZIP Co de Phone Number [facility] [address] [phone] * Hepatitis panel, acute (04/12/2022 3:41 AM [...] 3:41 AM EDT 04/12/2022 7:43 AM [facility] BLOOD ORDERABLES Fi nal Result Performing Organization Address City/[facility]/ZIP Co de Phone Number [facility] [address] [phone] from Last 3 Months or Most Recently Relevant to Health Maintenance Insurance [facility] MEDICARE ADVANTAGE Advance Directives For more information, please contact: [phone] * Full Code (Latest Code Status on File) Date Activated Date Inactivated Comments 09/22/2023 5:16 AM 09/29/2023 3:27 PM * Full Code Date Activated Date Inactivated Comments 02/03/2023 9:28 AM 02/03/2023 4:23 PM * Full Code Date Activated Date Inactivated Comments 09/17/2022 7:36 AM 09/17/2022 12:42 PM Care Teams Cosmetology Educator Relationship Specialty Start Date End Date Mumtaz Larson MD [address] [facility] [address] [place] [phone] PCP - General Family Medicine 08/26/22
--- OUTSIDE RECORDS SUMMARY | 2025-09-17 11:14 | XMS_ITS | Encounter Summary ---
Author Organization [employer] ([place], [place], [place], [place], [place]) Address [address] [place] [address] Care Team Providers Care Shaker Out Name Role Phone Mumtaz Larson MD Primary Care Provider + [phone] Encounter Details Date Type Department Care Team (Late st Contact Info) Description 10/02/2020 Transcribed Document [facility] [place] [facility] [place] [address] ProviderGabriel MD [address] [place] [address] Social History Tobacco Use Types Packs/Day Years [...] - Gabriel ProviderMD - 10/02/2020 3:30 PM LIVESTOCK BRANDS INSPECTOR [facility] Main OR IntraOp Summary Primary Physician: RUSLAN FRAZIER MD-SANDEEP Finalized Date/Time: 10/04/20 10:26:00 Pt. Name: TIEN DEJESUS Wilmer Delcid/Sex: 1955 Male Med Rec #: [id number] Physician: RUSLAN FRAZIER MD-SNAnna Financial #: [id number] Pt. Type: I Room/Bed: 5/1 Admit/Disch: 10/02/20 06:11:00 - 10/03/20 14:43:00 Institution: [facility] IntraOp Case Attendance Entry 1 Entry 2 Entry 3 Case Attendee FREDDIE, RIAN CLAIRE SANDRA D, RN MELVA MARTIN, NATASHAUB -SNAnna TECH Role Performed Surgeon/Proceduralist, Vac Press Operator, Second Scrub, First First Time In 10/02/20 [...] AGEE, RN Bernadine Castro, RN CAITLIN BEY, HEALTH PROMOTER Role Performed Scrub, Second Vac Press Operator, Second HEALTH PROMOTER/Nurse Plant Clerk Time In 10/02/20 14:49:00 10/02/20 15:19:00 10/02/20 [...] OTHER, ATTENDEE #1 ARIADNA SCOTT Role Performed Vac Press Operator, First Student Physician ophthalmic medical assistant Time In 10/02/20 16:52:00 10/02/20 14:49:00 10/02/20 14:49:00 Time Out 10/02/20 17:14:00 10/02/20 17:14:00 10/02/20 17:14:00 Procedure Lumbar Fusion Posterior Lumbar Fusion Posterior Lumbar Fusion Posterior 3 Level 3 Level 3 Level Other Attendee relief patience munguia - HEALTH PROMOTER student Superficial Wound Closed By: Last Modified By: Bernadine Castro Perkins, Cassandra L, Bernadine Castro, RN 10/02/20 17:15:30 RN 10/02/20 17:15:30 RN 10/02/20 17:15:30 [facility] IntraOp Case Attendance Audit 10/02/20 17:16:06 Animal Biologist: [id number] Modifier: [id number] <+> Role Performed 5 <*> Procedure Lumbar Fusion Posterior 3 Level 10/02/20 17:15:30 Animal Biologist: [id number] Modifier: [id number] <+> Time Out 1 <*> Procedure [...] Lumbar Fusion Posterior 3 Level 10/02/20 17:10:08 Animal Biologist: [id number] Modifier: [id number] <+> 9 Case Attendee <+> 9 Role Performed <+> 9 Time In <+> 9 Procedure 10/02/20 17:04:30 Animal Biologist: [id number] Modifier: [id number] <+> 8 Case Attendee <+> 8 Role Performed <+> 8 Time In <+> 8 Procedure <+> 8 Other Attendee 10/02/20 17:03:20 Animal Biologist: [id number] Modifier: [id number] <+> 7 Case Attendee <+> 7 Role Performed <+> 7 Time In <+> 7 Procedure <+> 7 Other Attendee 10/02/20 16:46:56 Animal Biologist: [id number] Modifier: [id number] <*> Procedure Lumbar Fusion Posterior 3 Level 2 <*> Procedure Lumbar Fusion Posterior 3 Level 3 <*> Procedure Lumbar Fusion Posterior 3 Level 4 <*> Procedure Lumbar Fusion Posterior 3 Level 5 <*> Procedure Lumbar Fusion Posterior 3 Level 6 <+> Time In 6 <*> Procedure Lumbar Fusion Posterior 3 Level 10/02/20 15:37:23 Animal Biologist: [id number] Modifier: [id number] <+> 6 Case Attendee <+> 6 Role Performed <+> 6 Procedure 10/02/20 15:19:36 Animal Biologist: [email or web address] Modifier: [id number] <*> Procedure Lumbar Fusion Posterior 3 Level 2 <*> Procedure Lumbar Fusion Posterior 3 Level 3 <+> Time In 3 <*> Procedure Lumbar Fusion Posterior 3 Level 4 <+> Time In 4 <*> Procedure Lumbar Fusion Posterior 3 Level <+> 5 Case Attendee <+> 5 Time In <+> 5 Procedure 10/02/20 15:12:55 Animal Biologist: [email or web address] Modifier: [email or web address] 1 <*> Procedure Lumbar Fusion Posterior 3 Level 2 <+> Time In 2 <*> Procedure Lumbar Fusion Posterior 3 Level <+> 3 Case Attendee <+> 3 Role Performed <+> 3 Procedure <+> 4 Case Attendee <+> 4 Role Performed <+> 4 Time Out <+> 4 Procedure 10/02/20 15:04:57 Animal Biologist: WASSONSY Modifier: [email or web address] 1 <*> Procedure Lumbar Fusion Posterior 3 Level <+> 2 Case Attendee <+> 2 Role Performed <+> 2 Time Out <+> 2 Procedure [facility] IntraOp Case Times Entry 1 Patient In Room Time 10/02/20 14:49:00 Out Room Time 10/02/20 17:14:00 Anesthesia Start Time 10/02/20 14:49:00 Stop Time 10/02/20 17:14:00 Surgery / Procedure Times Start Time 10/02/20 15:30:00 Stop Time 10/02/20 17:10:00 Last Modified By: Bernadine Castro RN 10/02/20 17:15:28 [facility] IntraOp Case Times Audit 10/02/20 17:15:28 Animal Biologist: [id number] Modifier: [id number] <+> 1 Out Room Time <+> 1 Stop Time 10/02/20 17:13:13 Animal Biologist: [id number] Modifier: [id number] <+> 1 Stop Time 10/02/20 15:30:10 Animal Biologist: NICOLAS Modifier: [id number] <+> 1 Start Time [facility] IntraOp Cautery Entry 1 ESU Identification Cautery Type Monopolar ESU ID Number [id number] ID Type Hospital Number Cautery Settings Cut Setting 30 Coag Setting 30 ESU Grounding Pad Ground Pad Type Adult Grounding Pad Site Left thigh Grounding Pad SACHA MODI RN Applied By Grounding Pad Site Warm, dry and intact Skin Condition Before Cautery Grounding Pad Site Unchanged Skin Condition After Cautery Last Modified By: Bernadine Castro RN 10/02/20 15:17:52 [facility] IntraOp Communication Entry 1 Communication To Family/Significant other Communication By Bernadine Castro RN Last Modified By: Bernadine Castro RN 10/02/20 16:49:41 [facility] IntraOp Counts Verification Entry 1 Procedure Lumbar Fusion Posterior 3 Level Count Info Count Type Sponge, Sharps, Miscellaneous Counts Verification Baseline/pre-procedure Sequence Count Results Not Applicable Counts Performed By Count Performed By MAGDALENO AGEE RN (Scrub) Count Performed By SACHA MODI RN (RN) Last Modified By: SACHA MODI RN 10/02/20 15:13:15 [facility] IntraOp Counts Final Entry 1 Procedure Lumbar Fusion Posterior 3 Level Final Count Info Count Type Sponge, Sharps, Miscellaneous Counts Verification Skin Closure/end of Sequence procedure Count Results Correct, surgeon notified Counts Performed By Count Performed By MELVA MARTIN SCRUB (Scrub) TECH Count Performed By Bernadine Castro RN (RN) Last Modified By: Bernadine Castro RN 10/02/20 16:54:07 [facility] IntraOp Departure from OR Entry 1 Integumentary Assessment Integumentary WDL Assessment WDL Transfer/Handoff Transfer to PACU Phase I Handoff Method Bedside/Face to face, Online nursing summary Post-op Transport Stretcher/Gurney Via Patient Transport CAITLIN BEY, Accompanied by HEALTH PROMOTER, OTHER, ATTENDEE #1 Last Modified By: Bernadine Castro RN 10/02/20 17:04:35 [facility] IntraOp Departure from OR Audit 10/02/20 17:04:35 Animal Biologist: [id number] Modifier: [id number] <*> Patient Transport Accompanied by CAITLIN BEY CRNA [facility] IntraOp Dressing and Packing Entry 1 Type Dressing Last Modified By: Bernadine Castro RN 10/02/20 15:32:06 [facility] IntraOp Fire Risk Assessment Entry 1 Fire [...] Modified By: Bernadine Castro RN 10/02/20 15:18:15 [facility] IntraOp General Case Clinician Oncology 1 Case Information OR OR 10 [facility] Case Level 1 Room Verified Yes Wound Class I - Clean Specialty SN Neurosurgery Anesthesia Type General ASA Class 3 Diagnosis Preop Diagnosis L4-5 spondylolisthesis Postop Diagnosis see md post op notes Last Modified By: Bernadine Castro RN 10/02/20 16:55:06 [facility] IntraOp General Case Data Audit 10/02/20 16:55:06 Animal Biologist: [id number] Modifier: [id number] <+> 1 Preop Diagnosis [facility] IntraOp Implant Log Entry 1 Entry 2 Entry 3 Type Tissue Implant Implant (Synthetic) Implant (Synthetic) (Biologic) Implant Log Implant Type Hardware Hardware Tissue Implant Type Other Implant .BONE VIVIGEN FORMABLE [id number] [facility] Identification -[id number] Description Implant Quantity 1 1 1 Implant Site op site Implant Identification Model Number Implant Identification Serial Number Implant Identification Lot Number Implant J&J:Depuy:Depuy Spine Identification Capacitor Inspector Name: Implant [id number] Identification Catalog Number Implant Size Implant Has an Yes Expiration Date Implant Expiration 09/13/21 Date Wasted Radioactive Material Time Implanted Tissue Implant Continue for Tissue Implant Documentation Tissue Identification Number Graft Prep Per Capacitor Inspector Instructions: Tissue Preparation Method: Reconstitution Solution: Reconstitution Solution Lot Number Reconstitution Solution Expiration Date: Thawing Solution Thawing Solution Lot Number Thawing Solution Expiration Date Preparation Materials, Other Preparation Materials, Other Lot Number Preparation Materials, Other Expiration Date Tissue Prepared/Processed By Capacitor Inspector Paperwork Completed Implant Type Comment Last Modified By: Bernadine Castro Perkins, Cassandra L, Bernadine Castro, RN 10/02/20 15:38:31 RN 10/02/20 16:49:28 RN 10/02/20 16:49:28 Entry 4 Entry 5 Entry 6 Type Implant (Synthetic) Implant (Synthetic) Implant (Synthetic) Implant Log Implant Type Hardware Hardware Hardware Tissue Implant Type Implant [id number] Identification Description Implant Quantity 4 2 4 Implant Site Implant Identification Model Number Implant Identification Serial Number Implant Identification Lot Number Implant Identification Capacitor Inspector Name: Implant Identification Catalog Number Implant Size Implant Has an Expiration Date Implant Expiration Date Wasted Radioactive Material Time Implanted Tissue Implant Continue for Tissue Implant Documentation Tissue Identification Number Graft Prep Per Capacitor Inspector Instructions: Tissue Preparation Method: Reconstitution Solution: Reconstitution Solution Lot Number Reconstitution Solution Expiration Date: Thawing Solution Thawing Solution Lot Number Thawing Solution Expiration Date Preparation Materials, Other Preparation Materials, Other Lot Number Preparation Materials, Other Expiration Date Tissue Prepared/Processed By Capacitor Inspector Paperwork Completed Implant Type Comment Last Modified By: Bernadine Castro Perkins, Cassandra L, Bernadine Castro, RN 10/02/20 16:49:28 RN 10/02/20 16:49:28 RN 10/02/20 16:49:28 Entry 7 Type Implant Log Implant Type Hardware Tissue Implant Type Implant [id number] Identification Description Implant Quantity 1 Implant Site Implant Identification Model Number Implant Identification Serial Number Implant Identification Lot Number Implant Identification Capacitor Inspector Name: Implant Identification Catalog Number Implant Size Implant Has an Expiration Date Implant Expiration Date Wasted Radioactive Material Time Implanted Tissue Implant Continue for Tissue Implant Documentation Tissue Identification Number Graft Prep Per Capacitor Inspector Instructions: Tissue Preparation Method: Reconstitution Solution: Reconstitution Solution Lot Number Reconstitution Solution Expiration Date: Thawing Solution Thawing Solution Lot Number Thawing Solution Expiration Date Preparation Materials, Other Preparation Materials, Other Lot Number Preparation Materials, Other Expiration Date Tissue Prepared/Processed By Capacitor Inspector Paperwork Completed Implant Type Comment Last Modified By: Bernadine Castro RN 10/02/20 16:49:28 [facility] IntraOp Implant Log Audit 10/02/20 16:49:28 Animal Biologist: [id number] Modifier: [id number] <+> 2 Implant Identification Description <+> 2 Implant Quantity <+> 2 Implant Type <+> 2 Type <+> 3 Implant Identification Description <+> 3 Implant Identification Capacitor Inspector Name: <+> 3 Implant Quantity <+> 3 [...] 7 Implant Quantity <+> 7 Implant Type [facility] IntraOp Intraoperative Assessment Entry 1 Handoff Method [...] Modified By: Bernadine Castro RN 10/02/20 15:38:46 [facility] IntraOp Intraoperative Equipment Entry 1 Type Equipment Equipment Equipment Ophelia Suction System Setting 92273 Intraop Monitoring Electrocardiogram Five lead placement (ECG) Electrode Placement Blood Pressure Non-Invasive BP Device Source Blood Pressure Arm, right upper Location Pulse Oximeter Hand, left Probe Site Antiembolic Devices Antiembolic Devices Sequential compression device, knee high Antiembolic Device Bilateral Location Antiembolic Device [id number] ID Number Scopes Photo/Video Documentation Last Modified By: Bernadine Castro RN 10/02/20 15:39:13 [facility] IntraOp Medication Admin Entry 1 Medication/Irrigant Marcaine 0.25% 30ml vial - [id number] Dose Procedure Irrigation Last Modified By: Bernadine Castro RN 10/02/20 16:53:44 [facility] IntraOp Patient Positioning Entry 1 Procedure Lumbar Fusion Posterior 3 Level Body Position Prone Left Arm Position Secured on padded arm board Right Arm Position Secured on padded arm board Left Leg Position Uncrossed, parallel Right Leg Position Uncrossed, parallel Feet Uncrossed Yes Pressure Points Yes Checked Positioning Devices Pad, Elbow Positioned By Bernadine Castro RN, FREDDIE, RUSLAN CRAIG MD-SNURIAN SANDRA D, RN Position Verified Positioning Yes Verified by Anesthesia Positioning Yes Verified by Surgeon Last Modified By: Bernadine Castro RN 10/02/20 15:33:07 [facility] IntraOp Sign In Entry 1 Patient, Site, [...] Modified By: Bernadine Castro RN 10/02/20 16:46:47 [facility] IntraOp Sign Out Entry 1 RN Confirmation [...] Modified By: Bernadine Castro RN 10/02/20 17:15:44 [facility] IntraOp Sign Out Audit 10/02/20 17:15:44 Animal Biologist: [id number] Modifier: [id number] <*> RN Sign Out Signature Bernadine Castro RN 1 <+> RN Sign Out Signature Date/Time [facility] IntraOp Skin Prep Entry 1 Procedure Lumbar Fusion Posterior 3 Level Prescribed Yes Pre-Surgical Prep Completed Prep Area op site Intraop Prep Integumentary WDL Assessment WDL Prep Agents DuraPrep Prep by Bernadine Castro RN Hair Removal Methods Clipper/Scissors Hair Removal By RUSLAN FRAZIER MD-SNU Last Modified By: Bernadine Castro RN 10/02/20 15:32:27 [facility] IntraOp Surgical Procedures Entry 1 Procedure Lumbar Fusion Posterior 3 Level Additional (L4-5 TLIF WITH AIRO) Procedure Description Primary Procedure Yes Primary Surgeon RUSLAN FRAZIER MD-SNU Start 10/02/20 15:30:00 Stop 10/02/20 17:10:00 Anesthesia Type General Specialty SN Neurosurgery Wound Class I - Clean Last Modified By: Bernadine Castro RN 10/02/20 17:15:32 [facility] IntraOp Surgical Procedures Audit 10/02/20 17:15:32 Animal Biologist: [id number] Modifier: [id number] <+> 1 Stop 10/02/20 16:50:20 Animal Biologist: NICOLAS Modifier: [id number] <+> 1 Start [facility] IntraOp Temp Regulation Devices Entry 1 Temp Regulation Temperature Warm blankets Regulation Device Temperature COMBEST, CAITLIN P, HEALTH PROMOTER Regulation Device Applied by Last Modified By: Bernadine Castro RN 10/02/20 16:34:04 [facility] IntraOP Time Out Entry 1 Procedure to [...] 10:23 WATCH[place] Correct Billing Electronically signed by [facility], [facility] Conversion Utility Tech Cerner at 02/01/2023 6:56 PM CDT documented in this encounter Plan of Treatment Not on file documented as of this encounter Visit Diagnoses Not on filedocumented in this encounter Care Teams Shaker Out Relationship Specialty Start Date End Date Mumtaz Larson MD [address] [facility] [address] [place] [phone] PCP - General Family Medicine 08/26/22 documented as of this encounter
--- OUTSIDE RECORDS SUMMARY | 2025-09-17 11:14 | XMS_ITS | Encounter Summary ---
Author Organization [employer] ([place], [place], [place], [place], [place]) Address [address] [place] [address] Care Team Providers Care Anatomical Embalmer Name Role Phone Mumtaz Larson MD Primary Care Provider [phone] Encounter Details Date Type Department Care Team (Late st Contact Info) Description 10/02/2020 Transcribed Document [facility] Neurology - [address] [phone] Jass Ordonez MD [address] [place] [address] Social History Tobacco Use Types Packs/Day Years [...] PROCEDURE: An L4-5 transforaminal lumbar interbody fusion. EXTERNAL RELATIONS MANAGER: Rasta Helms PA-C. ANESTHESIA TYPE: GEA. DESCRIPTION [...] scans and spinal stereotactic navigation using the [employer] system, pedicle screws were placed at L4 [...] LOSS: 50 mL. DRAINS: None. COMPLICATIONS: None. /[id number] MD ASCENCION Forrester/BRANDON / ASCENCION / MODL /[id number] CC: Dr. Mumtaz Larson documented in this encounter Plan of Treatment Not on file documented as of this encounter Visit Diagnoses Not on filedocumented in this encounter Care Teams Anatomical Embalmer Relationship Specialty Start Date End Date Mumtaz Larson MD [address] [place] [phone] PCP - General Family Medicine 08/26/22 documented as of this encounter
--- OUTSIDE RECORDS SUMMARY | 2025-09-17 11:14 | XMS_ITS | Encounter Summary ---
Author Organization [employer] ([place], [place], [place], [place], [place]) Address [address] [place] [address] Care Team Providers Care Production Gear Cutter Name Role Phone Mumtaz Larson MD Primary Care Provider [phone] Encounter Details Date Type Department Care Team (Late st Contact Info) Description 10/02/2020 Transcribed Document [facility] Neurology - [place] [id number] [phone] Jass Ordonez MD [address] [place] [address] [place] [address] Social History Tobacco Use Types Packs/Day Years [...] Cap, Oral, Daily, 0 Refill(s) Flonase: 1 [place], Nostrils Both, Daily, 0 Refill(s) Melatonin 5 [...] = 1 Cap, Oral, Daily Flonase 1 [place], Nostrils Both, Daily levothyroxine 50 mcg (0.05 [...] All Problems Microscopic colitis / SNOMED CT 286059988 / Confirmed Prostate cancer / SNOMED CT 3826124857 / Confirmed History of obstructive sleep apnea / IMO 48821160 / Confirmed High blood pressure / SNOMED CT 72347353 / Confirmed Hard of hearing / SNOMED CT 663373101 / Confirmed GERD - Gastro-esophageal reflux disease / SNOMED CT 3599057039 / Confirmed Diabetes mellitus type II / SNOMED CT 51942312 / Confirmed Bronchitis / SNOMED CT 34954870 / Confirmed Arthritis / SNOMED CT 6774977 / Confirmed Allergic rhinitis / SNOMED CT 253760561 / Confirmed, Active Problems (10) Allergic rhinitis [...] scope. hand surgery. umbilical hernia repair. Appendectomy ([id number]). Brachytherapy ([id number]). Comments: 09/27/2020 10:27 Miguel Angel Valdivia, Rn for prostate cancer Social History Social [...] Extraocular movements are intact, glasses. HENT: Normocephalic, QUILEUTE, suleiman aids. Neck: Supple, Non-tender. Respiratory: Lungs [...] filedocumented in this encounter Care Teams Production Gear Cutter Relationship Specialty Start Date End Date Mumtaz Larson MD [address] [place] [facility] [address] [place] [phone] PCP - General Family Medicine 08/26/22 documented as of this encounter
--- OUTSIDE RECORDS SUMMARY | 2025-09-17 11:14 | XMS_ITS | Encounter Summary ---
Author Organization [employer] ([place], [place], [place], [place], [place]) Address [address] [place] [address] Care Team Providers Care Marine Equipment Preservation Inspector Name Role Phone Mumtaz Larson MD Primary Care Provider + [phone] Encounter Details Date Type Department Care Team (Late st Contact Info) Description 10/03/2020 Transcribed Document [facility] Family Medicine [facility] [place] [address] ProviderGabriel MD [address] [place] [address] Social History Tobacco Use Types Packs/Day Years Used Date Smoking Tobacco: Never Assessed Sex and Gender Information Value Date Recorded Sex Assigned at Male 05/13/2022 12:59 PM CDT Legal Sex Male 1:44 PM CDT Gender Identity Male 05/13/2022 12:59 PM CDT Sexual Orientation Not on file documented as of this encounter Miscellaneous Notes * Cerner Conversion Note - Gabriel ProviderMD - 10/03/2020 10:57 AM JOB ESTIMATOR Stroke/Warfarin Instructions Entered On: 10/03/2020 10:57 EST Performed On: 10/03/2020 10:57 EST by MEL MORILLO RN Stroke/Warfarin Instructions Stroke/TIA Discharge Ins : N/A Warfarin Discharge Ins : N/A MEL MORILLO RN - 10/03/2020 10:57 EST Electronically signed by Sherri [facility] Conversion Tile Machine Operator Cerner at 02/01/2023 7:11 PM CDT documented in this encounter Plan of Treatment Not on file documented as of this encounter Visit Diagnoses Not on filedocumented in this encounter Care Teams Marine Equipment Preservation Inspector Relationship Specialty Start Date End Date Mumtaz Larson MD [address] [place] [facility] [address] [place] [phone] PCP - General Family Medicine 08/26/22 documented as of this encounter
--- OUTSIDE RECORDS SUMMARY | 2025-09-17 11:14 | XMS_ITS | Data Portability ---
Author Organization [facility] Earnest mendiola, [facility] [place] [facility] Address [address] [facility] [address] [place] [address] Care Team Providers Care Automobile Parker Name Role Phone MARY FAJARDO Primary Care Provider Assessment Encounter Date Assessment Date Assessment LastModified by Organization Details LastModified Time 04/27/2024 04/27/2024 We reviewed the diagnosis of renal mass. I have reviewed the radiologist dictated report. I have not seen the radiology images. Patient was not accompanied with CT disc. We discussed options of management for a mass of this size including partial nephrectomy, percutaneous ablative therapy, radical nephrectomy. We will obtain a CT disc for review and further plans recommendations pending review. Not available 04/30/2024 17:29:26 06/29/2024 06/29/2024 We reviewed the diagnosis of renal carcinoma. Empiric antibiotics for incisional cellulitis. [email or web address] Not available 06/29/2024 19:15:01 10/12/2024 10/12/2024 Patient is doing well following surgery. Continue to monitor with radiographic imaging at follow-up, ultrasound. Not available 10/13/2024 10:43:19 03/29/2025 03/29/2025 - 69-year-old ma le with a history of malignant neoplasm of retroperitoneum presenting for follow-up post-nephrectomy. Recent ultrasound shows no recurrence, contralateral renal cyst noted. - History of malignant neoplasm of prostate treated with brachytherapy in 2014. History of radiation therapy noted. - Lower urinary tract symptoms managed with Flomax, no current issues reported. [email or web address] Not available 04/01/2025 10:56:40 Plan of Treatment Reminders Order Date Submit Date Provider Last Modified By Organization Details Last Modified Time Details Appointments None recorded. Lab urinalysis panel, auto 2023 024 [email or web address] 14 [facility], [address] [place] [address] [place], [address], 4 10:43:21 urinalysis panel, auto 2023 024 [email or web address] 14 [facility], [address] [place] [address] [place], [address], 4 19:15:04 urinalysis panel, auto 2023 024 [email or web address] 14 [facility], [address] [place], [address], 17:29:28 Referral None recorded. Procedures None recorded. Surgeries None recorded. Imaging None recorded. Medication Orders cephalexin 500 mg capsule 2023 025 [facility], [address] [place] [address], [id number], 5 08:27:19 Patient TargetsNo targets recorded. Patient Instructions Encounter Date Encounter Id Patient Instructions Last Modified By Organization Details Last Modified Time 04/27/2024 [id number] learning about healthy weight [email or web address] Not available 04/30/2024 17:29:27 06/29/2024 [id number] learning about healthy weight Not available 06/29/2024 19:15:02 10/12/2024 [id number] learning about healthy weight [email or web address] Not available 10/13/2024 10:43:21 03/29/2025 [id number] learning about healthy weight [email or web address] Not available 04/01/2025 10:57:01 - Continue takin g Flomax as prescribed for urinary symptoms. - Schedule a follow-up appointment in six months for a CT scan. - Continue taking Flomax as prescribed for urinary symptoms. - Schedule a follow-up appointment in six months for a CT scan. [email or web address] Not available 03/29/2025 14:31:38 Reason for Referral None Reported. Results Created Date Observation Date Name Description Value Unit Range Abnormal Flag Note LastModifiedBy Organization Detail LastModifiedTime 04/27/20 24 04/27/2024 urina lysis panel , auto Unknown Analyte Clean Catch Not Available [facility] With [address], [place], [address], 04/27/2024 16:50:43 04/27/20 24 04/27/2024 urina lysis panel , auto Unknown Analyte Yellow Not Available [facility] With [address], [place], [address], 04/27/2024 16:50:43 04/27/20 24 04/27/2024 urina lysis panel , auto Unknown Analyte Clear Not Available [facility] With [address], [place], [address], 04/27/2024 16:50:43 04/27/20 24 04/27/2024 urina lysis panel , auto Unknown Analyte 1.020 Not Available [facility] With [address], [place], [address], 04/27/2024 16:50:43 04/27/20 24 04/27/2024 urina lysis panel , auto Unknown Analyte 1.003- 1.035 Not Available [facility] With [address], [place], [address], 04/27/2024 16:50:43 04/27/20 24 04/27/2024 urina lysis panel , auto Unknown Analyte 5.0 Not Available [facility] With [address], [place], [address], 04/27/2024 16:50:43 04/27/20 24 04/27/2024 urina lysis panel , auto Unknown Analyte 5.0-8. 0 Not Available [facility] [place] With [address], [place], [address], 04/27/2024 16:50:43 04/27/20 24 04/27/2024 urina lysis panel , auto Unknown Analyte Negati ve Not Available [facility] [place] With [address]oxie [address], [place], [address], 04/27/2024 16:50:43 04/27/20 24 04/27/2024 urina lysis panel , auto Unknown Analyte Negati ve Not Available [facility] [place] With [address]oxie Christopher, [place], [address], 04/27/2024 16:50:43 04/27/20 24 04/27/2024 urina lysis panel , auto Unknown Analyte Negati ve Not Available [facility] [place] With [address], [place], [address], 04/27/2024 16:50:43 04/27/20 24 04/27/2024 urina lysis panel , auto Unknown Analyte Negati ve Not Available [facility] [place] With [address], [place], [address], 04/27/2024 16:50:43 04/27/20 24 04/27/2024 urina lysis panel , auto Unknown Analyte Negati ve Not Available [facility] [place] With [address], [place], [address], 04/27/2024 16:50:43 04/27/20 24 04/27/2024 urina lysis panel , auto Unknown Analyte Negati ve Not Available [facility] [place] With [address], [place], [address], 04/27/2024 16:50:43 04/27/20 24 04/27/2024 urina lysis panel , auto Unknown Analyte Normal Not Available [facility] With [address]oxie [address], [place], [address], 04/27/2024 16:50:43 04/27/20 24 04/27/2024 urina lysis panel , auto Unknown Analyte Normal Not Available [facility] [address]ie [address], [place], [address], 04/27/2024 16:50:43 04/27/20 24 04/27/2024 urina lysis panel , auto Unknown Analyte Negati ve Not Available [facility] With [address]oxie [address], [place], [address], 04/27/2024 16:50:43 04/27/20 24 04/27/2024 urina lysis panel , auto Unknown Analyte Negati ve Not Available [facility] With [address]ie [address], [place], [address], 04/27/2024 16:50:43 04/27/20 24 04/27/2024 urina lysis panel , auto Unknown Analyte Normal Not Available [facility] With [address], [place], [address], 04/27/2024 16:50:43 04/27/20 24 04/27/2024 urina lysis panel , auto Unknown Analyte Normal 1 mg/dl Not Available [facility] With [address], [place], [address], 04/27/2024 16:50:43 04/27/20 24 04/27/2024 urina lysis panel , auto Unknown Analyte Negati ve Not Available [facility] With [address]oxie [address], [place], [address], 04/27/2024 16:50:43 04/27/20 24 04/27/2024 urina lysis panel , auto Unknown Analyte Negati ve Not Available [facility] With [address]oxie [address], [place], [address], 04/27/2024 16:50:43 04/27/20 24 04/27/2024 urina lysis panel , auto Unknown Analyte Negati ve Not Available [facility] With [address]oxie [address], [place], [address], 04/27/2024 16:50:43 04/27/20 24 04/27/2024 urina lysis panel , auto Unknown Analyte Negati ve Not Available [facility] With [address], [place], [address], 04/27/2024 16:50:43 06/29/20 24 06/29/2024 urina lysis panel , auto Unknown Analyte Clean Catch Not Available [facility] With [address], [place], [address], 06/29/2024 12:15:06 06/29/20 24 06/29/2024 urina lysis panel , auto Unknown Analyte Yellow Not Available [facility] With [address], [place], [address], 06/29/2024 12:15:06 06/29/20 24 06/29/2024 urina lysis panel , auto Unknown Analyte Clear Not Available [facility] With [address], [place], [address], 06/29/2024 12:15:06 06/29/20 24 06/29/2024 urina lysis panel , auto Unknown Analyte 1.020 Not Available [facility] With [address], [place], [address], 06/29/2024 12:15:06 06/29/20 24 06/29/2024 urina lysis panel , auto Unknown Analyte 1.003- 1.035 Not Available [facility] [address] Faustin F, [place], [address], 06/29/2024 12:15:06 06/29/20 24 06/29/2024 urina lysis panel , auto Unknown Analyte 5.0 Not Available [facility] With [address], [place], [address], 06/29/2024 12:15:06 06/29/20 24 06/29/2024 urina lysis panel , auto Unknown Analyte 5.0-8. 0 Not Available [facility] With [address], [place], [address], 06/29/2024 12:15:06 06/29/20 24 06/29/2024 urina lysis panel , auto Unknown Analyte Negati ve Not Available [facility] With [address], [place], [address], 06/29/2024 12:15:06 06/29/20 24 06/29/2024 urina lysis panel , auto Unknown Analyte Negati ve Not Available [facility] With [address], [place], [address], 06/29/2024 12:15:06 06/29/20 24 06/29/2024 urina lysis panel , auto Unknown Analyte Negati ve Not Available [facility] With [address], [place], [address], 06/29/2024 12:15:06 06/29/20 24 06/29/2024 urina lysis panel , auto Unknown Analyte Negati ve Not Available [facility] [address], [place], [address], 06/29/2024 12:15:06 06/29/20 24 06/29/2024 urina lysis panel , auto Unknown Analyte Negati ve Not Available [facility] With [address], [place], [address], 06/29/2024 12:15:06 06/29/20 24 06/29/2024 urina lysis panel , auto Unknown Analyte Negati ve Not Available [facility] [place] [address] [address], [place], [address], 06/29/2024 12:15:06 06/29/20 24 06/29/2024 urina lysis panel , auto Unknown Analyte Normal Not Available [facility] With [address], [place], [address], 06/29/2024 12:15:06 06/29/20 24 06/29/2024 urina lysis panel , auto Unknown Analyte Normal Not Available [facility] With [address], [place], [address], 06/29/2024 12:15:06 06/29/20 24 06/29/2024 urina lysis panel , auto Unknown Analyte Negati ve Not Available [facility] With [address], [place], [address], 06/29/2024 12:15:06 06/29/20 24 06/29/2024 urina lysis panel , auto Unknown Analyte Negati ve Not Available [facility] With [address], [place], [address], 06/29/2024 12:15:06 06/29/20 24 06/29/2024 urina lysis panel , auto Unknown Analyte Normal Not Available [facility] With [address] Christopher, [place], [address], 06/29/2024 12:15:06 06/29/20 24 06/29/2024 urina lysis panel , auto Unknown Analyte Normal 1 mg/dl Not Available [facility] With [address], [place], [address], 06/29/2024 12:15:06 06/29/2006/29/2024 urina lysis panel , auto Unknown Analyte Negati ve Not Available [facility] With [address], [place], [address], 06/29/2024 12:15:06 06/29/20 24 06/29/2024 urina lysis panel , auto Unknown Analyte Negati ve Not Available [facility] With [address], [place], [address], 06/29/2024 12:15:06 06/29/20 24 06/29/2024 urina lysis panel , auto Unknown Analyte Negati ve Not Available [facility] With [address], [place], [address], 06/29/2024 12:15:06 06/29/20 24 06/29/2024 urina lysis panel , auto Unknown Analyte Negati ve Not Available [facility] With [address], [place], [address], 06/29/2024 12:15:06 10/12/20 24 10/12/2024 urina lysis panel , auto Unknown Analyte Clean Catch Not Available [facility] With [address], [place], [address], 10/12/2024 15:28:51 10/12/20 24 10/12/2024 urina lysis panel , auto Unknown Analyte Yellow Not Available [facility] With [address], [place], [address], 10/12/2024 15:28:51 10/12/20 24 10/12/2024 urina lysis panel , auto Unknown Analyte Clear Not Available [facility] With [address], [place], [address], 10/12/2024 15:28:51 10/12/20 24 10/12/2024 urina lysis panel , auto Unknown Analyte 1.025 Not Available [facility] With [address], [place], [address], 10/12/2024 15:28:51 10/12/20 24 10/12/2024 urina lysis panel , auto Unknown Analyte 1.003- 1.035 Not Available [facility] With [address], [place], [address], 10/12/2024 15:28:51 10/12/20 24 10/12/2024 urina lysis panel , auto Unknown Analyte 6.0 Not Available [facility] With [address], [place], [address], 10/12/2024 15:28:51 10/12/20 24 10/12/2024 urina lysis panel , auto Unknown Analyte 5.0-8. 0 Not Available [facility] [address], [place], [address], 10/12/2024 15:28:51 10/12/20 24 10/12/2024 urina lysis panel , auto Unknown Analyte Negati ve Not Available [facility] With [address], [place], [address], 10/12/2024 15:28:51 10/12/20 24 10/12/2024 urina lysis panel , auto Unknown Analyte Negati ve Not Available [facility] [address], [place], [address], 10/12/2024 15:28:51 10/12/20 24 10/12/2024 urina lysis panel , auto Unknown Analyte Negati ve Not Available [facility] With [address], [place], [address], 10/12/2024 15:28:51 10/12/20 24 10/12/2024 urina lysis panel , auto Unknown Analyte Negati ve Not Available [facility] With [address], [place], [address], 10/12/2024 15:28:51 10/12/20 24 10/12/2024 urina lysis panel , auto Unknown Analyte Negati ve Not Available [facility] [place] [address] [address], [place], [address], 10/12/2024 15:28:51 10/12/20 24 10/12/2024 urina lysis panel , auto Unknown Analyte Negati ve Not Available [facility] With [address], [place], [address], 10/12/2024 15:28:51 10/12/20 24 10/12/2024 urina lysis panel , auto Unknown Analyte Normal Not Available [facility] [place] [address] [address], [place], [address], 10/12/2024 15:28:51 10/12/20 24 10/12/2024 urina lysis panel , auto Unknown Analyte Normal Not Available [facility] [place] [address] [address], [place], [address], 10/12/2024 15:28:51 10/12/20 24 10/12/2024 urina lysis panel , auto Unknown Analyte Negati ve Not Available [facility] [address], [place], [address], 10/12/2024 15:28:51 10/12/20 24 10/12/2024 urina lysis panel , auto Unknown Analyte Negati ve Not Available [facility] [address], [place], [address], 10/12/2024 15:28:51 10/12/20 24 10/12/2024 urina lysis panel , auto Unknown Analyte Normal Not Available [facility] With [address], [place], [address], 10/12/2024 15:28:51 10/12/20 24 10/12/2024 urina lysis panel , auto Unknown Analyte Normal 1 mg/dl Not Available [facility] [address], [place], [address], 10/12/2024 15:28:51 10/12/20 24 10/12/2024 urina lysis panel , auto Unknown Analyte Negati ve Not Available [facility] [address], [place], [address], 10/12/2024 15:28:51 10/12/20 24 10/12/2024 urina lysis panel , auto Unknown Analyte Negati ve Not Available [facility] [place] [facility] [address], [place], [address], 10/12/2024 15:28:51 10/12/20 24 10/12/2024 urina lysis panel , auto Unknown Analyte Negati ve Not Available [facility] [place] With [address], [place], [address], 10/12/2024 15:28:51 10/12/20 24 10/12/2024 urina lysis panel , auto Unknown Analyte Negati ve Not Available [facility] [address], [place], [address], 10/12/2024 15:28:51 04/07/20 21 04/07/2021 XR, lumbo sacra l spine , 2 or [address] [address] Gavin link Name: TIEN link : [address] Orderi ng Provid er: MART ORDONEZ EXAM DATE: 2020 EXAM: XR LUMBAR AP/LAT CLINIC AL INFORM ATION: Back pain. IMAGES PROVID ED: AP, latera l and coned down views of the lumbar spine. COMPAR MICHAEL: 2020 FINDIN GS: Previo us L4-5 marine diver ior fixati on and interb janice fusion . The degree of malali gnment is stable . No hardwa re compli cation . No loosen ing. Modera te degene rative spurri ng throug hout the L-spin e. No radiog raphic eviden ce of injury is noted. IMPRES SONIA: Stable uncomp licate d appear ing L4-5 fusion Interp reted By: Daniel Johnson MD Electr onical ly Signed By: Daniel Johnson MD on 021 12:41 PM [email or web address] [facility] [address] [place], [address], 04/22/2021 09:29:46 06/01/20 24 06/01/2024 XR, chest , 2 view No observ ation record ed. [email or web address] [facility] [address], [place], [address], 06/01/2024 10:47:15 12/01/19 25 2024 US, retro perit oneum , limit ed No observ ation record ed. [address] (X-Ray) [address], [place], [address], 12/04/2024 14:13:33 03/22/20 25 03/22/2025 US, retro perit oneum , limit ed No observ ation record ed. [id number], [place], [address], 03/28/2025 09:02:34 06/22/20 25 06/16/2025 CT, abdom en + pelvi s, w/ contr ast No observ ation record ed. [email or web address] Not Available 06/18 09:17:06 Result Notes Documentation Provider Name and Address Organization Details Recorded Time Xr, Lumbosacral Spine, 2 Or 3 View : [facility] [address] [place] [address] Patient Name: TIEN DEJESUS Patient : 1955 Patient Ordering Provider: RUSLAN ORDONEZ EXAM DATE: 04/07/2021 EXAM: XR LUMBAR AP/LAT CLINICAL INFORMATION: Back pain. IMAGES PROVIDED: AP, lateral and coned down views of the lumbar spine. COMPARISON: 11/18/2020 FINDINGS: Previous L4-5 posterior fixation and interbody fusion. The degree of malalignment is stable. No hardware complication. No loosening. Moderate degenerative spurring throughout the L-spine. No radiographic evidence of injury is noted. IMPRESSION: Stable uncomplicated appearing L4-5 fusion Interpreted By: Daniel Johnson MD Jaye Pizano [facility] [place] - [facility] 04/22/2021 09:29:46 Problems Name Problem SNOMED Code Status Onset Date Resolution Date Notes Provider Name and Address Organization Details Recorded Time Diarrhea 05853589 Active 2014 From Automated Load;Provi rashard: Hans Arthur;Statu s: Active Not Available [facility] 6 08:58:27 Left lower quadrant pain 359351772 Active 2014 From Automated Load;Provi rashard: Hans Arthur;Statu s: Active Not Available [facility] 6 08:58:27 Right lower quadrant pain 824234034 Active 2014 From Automated Load;Provi rashard: Hans Arthur;Statu s: Active Not Available [facility] 6 08:58:27 Noninfect ious gastroent eritis 21296684 Active 2015 From Automated Load;Provi rashard: Hans Arthur;Statu s: Active Not Available [facility] 6 08:58:27 Noninfect ious colitis 71988015 Active 2015 From Automated Load;Provi rashard: Hans Arthur;Statu s: Active Not Available [facility] 6 08:58:27 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 Procedures Surgical History Date Name Laterality Status Provider Name and Address Organization Details Recorded Time 06/02/20 24 LAPAROSCOPIC RADICAL NEPHRECTOMY (SURG) completed Christian Robert [facility] 06/02/2024 14:44:50 10/02/20 20 TRANSFORAMINAL INTERBODY LUMBAR FUSION, LEVEL SPECIFIED, WITH HARDWARE (SURG) completed Martina Bingham [facility] 10/03/2020 15:21:27 09/02/20 20 Electromyography (EMG) with Nerve Conduction Study (NCV) completed NAPOLEON NORTH MD [address] [place] [address], [address], [facility] 09/02/2020 18:45:52 [facility] 09:04:01 Knee arthroscopy/surgery completed [facility] 09/02/2020 09:04:07 appendectomy completed [facility] 09/02/2020 09:04:14 Unlisted px hands/fingers completed [facility] 09/02/2020 09:04:22 hernia repair completed Murelene Dion [facility] 04/27/2024 16:47:54 Carpal tunnel surgery completed Murelene Dion [facility] 04/27/2024 16:48:22 procedure on elbow completed Murele ne [facility] 04/27/2024 16:48:38 [facility] 04/27/2024 16:48:52 percutaneous endoscopic gastrostomy [place] [facility] 04/27/2024 16:49:02 Imaging Results None recorded. Procedure Notes None recorded. Medical Equipment None Reported. Allergies No known drug allergies Medications Name Sig Start Date Stop Date Status Note LastModified by Organization Details LastModified Time cyclobenz aprine 10 mg tablet Take 1 tablet 3 times a day by oral route as needed. 04/27 completed Not Available Not Available Not Available promethaz ine-DM 6.25 mg-15 mg/5 mL oral syrup TAKE 1 TEASPOON FUL (5 ML) BY MOUTH EVERY 6 HOURS NEEDED MAY CAUSE DROWSINE SS 04/27 completed Not Available Not Available Not Available Percocet 7.5 mg-325 mg tablet Take 1 tablet every 6 hours by oral route as needed. 04/27 completed Not Available Not Available Not Available atenolol 100 mg-chlort halidone 25 mg tablet Daily 04/27 completed Frequenc y: daily;Me dication Descript ion: atenolol -chlorth alidone; Dosage:1 ; Route:or al; refills: 0; Quantity :30 tablet Not Available Not Available Not Available Glucophag e 500 mg tablet Two times a day 04/27 completed Duration : 30 days;Osorio quency: bid;Medi cation Descript ion: metformi n; Dosage:1 ; Route:or al; refills: 0; Quantity :60 tablet Not Available Not Available Not Available Multiple Vitamin capsule Daily 04/27 completed Duration : 30 days;Osorio quency: daily;Me dication Descript ion: multivit sandoval; Dosage:1 ; Route:or al; refills: 3; Quantity :100 capsule Not Available Not Available Not Available benzonata te 200 mg capsule TAKE ONE CAPSULE BY MOUTH THREE TIMES DAILY NEEDED -SWALLOW WHOLE. DO NOT CRUSH OR CHEW- 04/27 completed Not Available Not Available Not Available hydrocodo ne 5 mg-acetam inophen 325 mg tablet TAKE 1 TO 2 TABLET(S ) BY MOUTH EVERY 6 HOURS NEEDED FOR PAIN MAY CAUSE DROWSINE SS 04/27 completed Not Available Not Available Not Available meloxicam 15 mg tablet TAKE ONE TABLET BY MOUTH EVERY DAY 04/27 completed Not Available Not Available Not Available Medrol (Blane) 4 mg tablets in a dose pack Take 1 dose pk by oral route as directed . 04/27 completed Not Available Not Available Not Available quetiapin e 200 mg tablet TAKE ONE TABLET BY MOUTH EVERY EVENING active Not Available Not Available No t Available potassium chloride ER 10 mEq tablet,ex tended release TAKE ONE TABLET BY MOUTH DAILY WITH FOOD 04/27 completed Not Available Not Available Not Available prochlorp erazine maleate 10 mg tablet TAKE ONE TABLET BY MOUTH EVERY 6 HOURS NEEDED 04/27 completed Not Available Not Available Not Available sulfameth oxazole 800 mg-trimet hoprim 160 mg tablet TAKE ONE TABLET BY MOUTH EVERY TWELVE HOURS FOR 7 DAYS -- FINISH ALL MEDICINE -- 04/27 completed Not Available Not Available Not Available tramadol 50 mg tablet TAKE ONE TABLET BY MOUTH EVERY 6 HOURS NEEDED FOR PAIN MAY CAUSE DROWSINE SS 04/27 completed Not Available Not Available Not Available mycopheno late mofetil 500 mg tablet TAKE THREE TABLETS BY MOUTH TWICE DAILY active Not Available Not Available No t Available FiberCon 625 mg tablet As Directed 2023 active Frequenc y: as direct.; Medicati on Descript ion: polycarb ophil; Dosage:2 ; Route:or al; refills: 0 Not Available Not Available Not Available amoxicill in 875 mg tablet TAKE ONE TABLET BY MOUTH TWICE DAILY FOR 10 DAYS -- FINISH ALL MEDICINE -- 04/27 completed Not Available Not Available Not Available alprazola m 0.25 mg tablet TAKE ONE TABLET BY MOUTH TWICE DAILY MAY CAUSE DROWSINE SS active Not Available Not Available No t Available potassium chloride ER 20 mEq tablet,ex tended release(p art/cryst ) Two times a day 04/27 completed Not Available Not Available Not Available Prilosec 10 mg capsule,d elayed release Daily 04/27 completed Duration : 30 days;Osorio quency: daily;Me dication Descript ion: omeprazo le; Dosage:1 ; Route:or al; refills: 3; Quantity :30 delayed release capsule Not Available Not Available Not Available tamsulosi n 0.4 mg capsule TAKE ONE CAPSULE BY MOUTH EVERY DAY 04/27 completed Not Available Not Available Not Available levothyro xine 50 mcg tablet TAKE ONE TABLET BY MOUTH EVERY DAY active Not Available Not Available No t Available cephalexi n 500 mg capsule Take 1 capsule every 6 hours by oral route for 10 days. 03/29 completed Not Available Not Available Not Available erythromy sally 5 mg/gram (0.5 %) eye ointment apply a thin 1/4 INCH strip TO THE affected eye(s) TWICE DAILY STARTING 3 DAYS BEFORE surgery but not THE DAY of surgery. 04/27 completed Not Available Not Available Not Available buspirone 10 mg tablet TAKE ONE TABLET BY MOUTH TWICE DAILY active Not Available Not Available No t Available promethaz ine 25 mg tablet TAKE ONE TABLET BY MOUTH EVERY 6 HOURS NEEDED MAY CAUSE DROWSINE SS 04/27 completed Not Available Not Available Not Available pramipexo le 0.25 mg tablet TAKE ONE-HALF TO 1 TABLET BY MOUTH EVERY DAY AT BEDTIME 04/27 completed Not Available Not Available Not Available omeprazol e 20 mg capsule,d elayed release TAKE ONE CAPSULE BY MOUTH EVERY DAY active Not Available Not Available No t Available allopurin ol 300 mg tablet TAKE ONE TABLET BY MOUTH EVERY DAY active Not Available Not Available No t Available gabapenti n 100 mg capsule TAKE 1 CAPSULE BY MOUTH TWICE A DAY FOR 30 DAYS 04/27 completed Not Available Not Available Not Available budesonid e DR - ER 3 mg capsule,d elayed,ex tended release TAKE THREE CAPSULES BY MOUTH DAILY DIRECTED (AND can take AT bedtime) active Not Available Not Available No t Available atropine 1 % eye drops INSTILL ONE DROP into THE affected eye(s) TWICE DAILY STARTING 3 DAYS BEFORE eye surgery AND THE morning of surgery active Not Available Not Available No t Available ondansetr on 4 mg disintegr ating tablet DISSOLVE ONE TABLET ON THE TONGUE AND allow TO dissolve TWICE DAILY 04/27 completed Not Available Not Available Not Available fluticaso ne propionat e 50 mcg/actua tion nasal spray,lilli pension instill 2 SPRAYS IN EACH NOSTRIL EVERY DAY active Not Available Not Available No t Available ipratropi um bromide 21 mcg (0.03 %) nasal spray INSTILL 2 SPRAYS IN EACH NOSTRIL DAILY ONE TO TWO HOURS BEFORE BEDTIME 04/27 completed Not Available Not Available Not Available naproxen 500 mg tablet 04/27 completed Not Available Not Available Not Available cyclobenz aprine 5 mg tablet TAKE ONE TABLET BY MOUTH THREE TIMES DAILY NEEDED MAY CAUSE DROWSINE SS 04/27 completed Not Available Not Available Not Available duloxetin e 60 mg capsule,d elayed release TAKE TWO CAPSULES BY MOUTH EVERY DAY active Not Available Not Available No t Available eszopiclo ne 3 mg tablet TAKE ONE TABLET BY MOUTH when directed THE night of SLEEP study 04/27 completed Not Available Not Available Not Available Boostrix Tdap 2.5 Lf unit-8 mcg-5 Lf/0.5 mL intramusc ular syringe Inject 0.5 ML INTRAMUS CULARLY DIRECTED 04/27 completed Not Available Not Available Not Available Seroquel active Not Available Not Avai lable Not Available Tricor active Not Available Not Availa ble Not Available allopurin ol 04/27 completed Medicati on Descript ion: allopuri nol; refills: 0 Not Available Not Available Not Available quetiapin e 400 mg tablet 04/27 completed Not Available Not Available Not Available fenofibra te nanocryst allized 145 mg tablet TAKE ONE TABLET BY MOUTH EVERY DAY 04/27 completed Not Available Not Available Not Available Probiotic Formula 10 billion cell(2 billion ea) capsule 04/27 completed Medicati on Descript ion: bifidoba cterium- lactobac illus; Route:or al; refills: 0 Not Available Not Available Not Available Suprep Bowel Prep Kit 17.5 gram-3.13 gram-1.6 gram oral solution TAKE DIRECTED 04/27 completed Not Available Not Available Not Available Fluad Quad (65yr up)(PF) 60 mcg (15 mcg x 4)/0.5mL IM syringe inject 0.5 ML INTRAMUS CULARLY DIRECTED 04/27 completed Not Available Not Available Not Available Vitals Date Recorded Body height Body mass index (BMI) Body weight Provider Name and Address Organization Details Last Updated DateTime 03/29/2025 185.42 cm 29 kg/m2 78337.32 [facility]29/[place]25 18:33:52 Date Recorded Body height Body mass index (BMI) Body weight Heart rate Systolic And Diastolic Provider Name and Address Organization Details Last Updated DateTime 04/07/2021 185.42 cm 39.3 kg/m2 951783.5 3 g 71 /min 114/68 mm[Hg] [facility] 14:58:38 Date Recorded Body height Body mass index (BMI) Body weight Provider Name and Address Organization Details Last Updated DateTime 04/27/2024 185.42 cm 26.4 kg/m2 23040.47 [facility] 04/27/2024 16:39:18 Date Recorded Body height Body mass index (BMI) Body weight Provider Name and Address Organization Details Last Updated DateTime 06/29/2024 185.42 cm 28.1 kg/m2 25349.17 [facility]/29/[place]24 14:18:42 Date Recorded Body height Body mass index (BMI) Body weight Provider Name and Address Organization Details Last Updated DateTime 10/12/2024 185.42 cm 28.4 kg/m2 42183.36 [facility] [place]/12/[place]24 15:33:02 Social History Question Answer Notes LastModified by Organizat ion Details LastModified Time Tobacco Smoking Status Former Smoker Dayami ochoa [facility] 09/02/2020 09:03:40 What Was The Date Of Your Most Recent Tobacco Screening? 03/29/2025 Information not available 03/29/2025 Sex: Male Functional Status Question Answer Note LastModified by Organization D etails LastModified Time What is your level of alcohol consumption? None Information not available 04/27/2024 Mental Status None recorded. Family History Nothing Reported. Medical History Condition Response Coronary Artery Disease N Other N Gout Y Kidney Stones N Kidney Cyst N Enlarged Prostate N Heart Arrhythmia N Head Trauma/Injury N Erectile Dysfunction N Emphysema N Sexually Transmitted Disease N Depression Y Pneumonia N Incontinence N Prostate Problems Y Cancer Prostate Y Paralysis N Anxiety Disorder Y Hemorrhoids Y Obesity N Arthritis Y Infertility N Acid Reflux (GERD) Y Hematuria N Cancer Y Stroke N Neck Injury N Previous Radiation Therapy? Y Neurologic Disorder N Kidney Disease N Heart Conditions N Kidney or Bladder Problems N Urinary Problems N Brain Injury N Ulcers N Prostate Hypertrophy N Low Testosterone N Tuberculosis N Previous Chemotherapy? N AIDS/HIV N BPH N Urinary Tract Infection N Asthma N Cardiac Disease N Thyroid Disorder Y Hepatitis N PCOS N Colon Cancer N Hernia N Colon/Rectal Disorders N Ostomy N Glaucoma N Pacemaker N Anesthesia Complications N Genitourinary Disease N Radiation Therapy N Chronic Kidney Disease N Bladder or Kidney Problems N Back Injury Y High Cholesterol Y High PSA N Nervous System Disorder N Liver Disease N Dialysis N Allergies/Hayfever N False Teeth N Chronic Obstructive Pulmonary Disease N Parkinson's Disease N Chemotherapy N Transplant N Anemia N Multiple Sclerosis N Chest Pain N Back Pain N Proteinuria N Heart Attack (ME) N Mental Illness N Ovarian Cancer N Diabetes Y Seizures/Epilepsy N Genitourinary problem(s) N Congestive Heart Failure (CHF) N Kidney Failure N Sleep Apnea Y Heart Disease N Bronchitis N Hypertension N Past Encounters Encounter ID Performer Location Encounter Start Date Encounter Closed Date Diagnosis/Indication Diagnosis SNOMED-CT Code Diagnosis ICD10 Code Diagnosis IMO Codes Diagnosis Note [id number] RUSLAN ORDONEZ MD [facility] [address] [place] [address] 09/02/2020 08:05:04 09/02/2020 11:17:47 Lumbar spondylolisthesis 4233097243 57139 M43.16 [id number] NAPOLEON NORTH MD NEUROLOGY [facility] [address] [place] [address] 09/02/2020 13:07:47 09/02/2020 14:02:49 Pain in left lower limb 302204399 M79.151 [id number] RUSLAN ORDONEZ MD SURGERY SCHEDULE [address] [place] [address] 10/04/2020 08:52:39 10/04/2020 13:49:47 [id number] RUSLAN ORDONEZ MD [facility] [address] [place] [address] 10/21/2020 10:40:42 10/22/2020 09:31:48 [id number] RUSLAN ORDONEZ MD [facility] [address] [place] [address] 11/18/2020 10:42:40 11/18/2020 15:08:36 Postoperative care [id number] Z48.89 [id number] ARIADNA SCOTT PA-C [facility] [address] [place] [address] 04/07/2021 13:28:14 04/08/2021 09:08:58 Low back pain 220722931 M54.5 65-year-ol d male status post L4-[address] Ordonez September 2020 here for postoperat jose luis follow-up. X-rays reviewed show stable placement of the hardware without evidence of loosening. Give him a copy of these. We are pleased with the patient's progress thus far. He understand s it may take a whole year to completely heal up from the surgery. No restrictio ns from our standpoint . He may follow up with us as needed moving forward. [id number] MD [facility] [address] [address] 04/27/2024 15:32:59 04/27/2024 19:10:07 Renal mass 947888448 N28.89 Benign pro static hyperplasia with outflow obstruction 101958051 N40.1 [id number] MD [facility] [address] [address] 06/29/2024 13:29:58 06/29/2024 18:37:51 Benign prostatic hyperplasia with outflow obstruction 720939447 N40.1 Cellulitis 405533664 L03 .90 Renal cell carcinoma 702 146690 C64.9 [id number] ARIADNA KENDALL MD [facility] [address] [address] 10/12/2024 15:22:28 10/12/2024 16:47:46 Clear cell carcinoma of kidney 675308400 C64.9 Benign pro static hyperplasia with outflow obstruction 401674911 N40.1 [id number] ARIADNA KENDALL MD [facility] [address] [address] 03/29/2025 13:37:46 03/29/2025 18:58:12 History of malignant neoplasm of retroperitoneum 8307190533 9107 Z85.528 [id number] - Continue monitoring with renal ultrasound ; no recurrence noted, follow-up in six months with CT scan. History of malignant neoplasm of prostate 958197850 Z85.46 [id number] - History of brachyther apy in 2014, continue routine follow-up. History of radiation therapy 054819490 Z92.3 [id number] - Continue monitoring for any long-term effects related to prior radiation therapy. Lower urin damian tract symptoms 373728058 R39.9 [id number] - Continue Flomax for symptom management , no current issues reported. Health Concerns Section Related Observation LastModified by Organization Detai ls LastModified Time None Recorded Concern Status LastModified by Organization Details LastModified Time None Recorded Advance Directives Directive None Recorded Payers Insurance Date Sequence Insurance Name Policy Number Policy Rush Covered Member ID Rush Member ID Guarantor Name 09/17/2025 1 [facility] (MEDICARE REPLACEMENT/A DVANTAGE - PPO) [id number] Tien Dejesus [id number] Tien Dejesus 12/04/2022 2 [facility] (INDEMNITY) [id number] Clare King [id number] Tien Dejesus 06/05/2022 1 [place] Tien Dejesus [id number] Tien Dejesus Notes Date Note Type Note Provider Name and Address Organization Details Recorded Time 04/07/2021 text/html ROS as noted in the HPI 65-year-old male status post L4-5 MIS TLIF September [address] ordonez here for postoperative follow-up. The patient states he is doing quite well since surgery. Couple months ago he had recurrence of buttock and leg pain but this is now resolved. He states that his walking is 100% better. He has occasional low back pain is manageable. He is very pleased with his progress thus far. ARIADNA SCOTT PA-C [address] [place] [address], [phone], [facility] 04/07/2021 15:14:48 04/27/2024 text/html 68 y/o male is in the clinic today as a new patient for my initial evaluation and discussion of a kidney mass. CT A/P 04/24/2024 from [facility] shows a enhancing right mid renal mass 2.6X 2.2 cm. He has history of PEG tube. Patient has a history of brachytherapy 2014 to treat prostate cancer. No specific troubles of urination. ARIADNA KENDALL MD [address] [place] [address], [phone], [facility] 04/30/2024 17:29:42 06/29/2024 text/html 68-year-old male in the office for follow-up evaluation of hand-assisted laparoscopic radical nephrectomy for right renal mass. Pathology confirmed clear-cell renal cell carcinoma, negative margins. Patient states he is doing well. He denies concerns or complaints. ARIADNA KENDALL MD [address] [place] [address], [phone], [facility] 06/29/2024 19:15:18 10/12/2024 text/html 68-year-old male in the office for follow-up evaluation of hand-assisted laparoscopic radical nephrectomy for right clear-cell renal cell carcinoma, negative margins. Patient reports that he healed well from his procedure and denies any urination concerns. No gross hematuria or dysuria. No flank pain or abdominal pain. ARIADNA KENDALL MD [address] [place] [address], [phone], [facility] 10/13/2024 10:43:37 03/29/2025 text/html The patient is a 69-year-old male presenting for follow-up evaluation of right radical nephrectomy for clear cell renal cell carcinoma. He underwent a right radical nephrectomy, and recent renal ultrasound shows no evidence of recurrence, although a contralateral renal cyst was noted. The patient has a history of malignant neoplasm of the prostate, for which he underwent brachytherapy in 2014. He also has a history of radiation therapy related to prostate cancer treatment. The patient reports lower urinary tract symptoms, which are currently managed with Flomax. He denies any burning, blood in urine, or difficulty urinating. - Renal ultrasound: No evidence of recurrence, contralateral renal cyst noted ARIADNA KENDALL MD [address] [place], [address], [facility] 04/01/2025 10:57:22
--- OUTSIDE RECORDS SUMMARY | 2025-09-17 11:14 | XMS_ITS | Encounter Summary ---
Author Organization [employer] ([place], [place], [place], [place], [place]) Address [address] [place] [address] Care Team Providers Care Tomato Paste Maker Name Role Phone Mumtaz Larson MD Primary Care Provider + [phone] Encounter Details Date Type Department Care Team (Late st Contact Info) Description 10/03/2020 Transcribed Document [address] [address] Angeline Amos MD [facility] [address] [address] Social History Tobacco Use Types [...] is a 64 yo male admitted to [facility] [place] per Dr. Ordonez for an L4-5 TLIF. [...] mg/dL 10/03/2020 04:19 Glucose Level 146 mg/dL [place] 10/03/2020 04:19 Calcium Level 8.5 mg/dL 10/03/2020 04:19 Creatinine Level 1.20 mg/dL 10/03/2020 04:19 Cardiac Markers (Current Encounter/Past 24 Hours) No Cardiac Marker Results Found (Past 24 Hours) CBC Results (Current Encounter/Past 24 Hours) WBC 10.2 K/uL [place] 10/03/2020 03:51 Hct 41.8 % 10/03/2020 03:51 [...] 10/03/2020 04:19 Radiology Results (Last 48 hours) [id number] -- 10/02/2020 06:[address] in OR (10/02/2020 17:11) Result: CT SPINE LUMBAR IN THE ORINDICATION: Intraoperative exam. Back pain.TECHNIQUE: Thin section axial images were obtained through the lumbarspine with the patient in prone position using the i.Sec CT system. Thiswas obtained in the operating [...] on filedocumented in this encounter Care Teams Tomato Paste Maker Relationship Specialty Start Date End Date Mumtaz Larson MD [address] [place] [facility] [address] [place] [address] PCP - General Family Medicine 08/26/22 documented as of this encounter
--- OUTSIDE RECORDS SUMMARY | 2025-09-17 11:14 | XMS_ITS | Encounter Summary ---
Author Organization [employer] ([place], [place], [place], [place], [place]) Address [address] [place] [address] Care Team Providers Care Printed Circuit Board Pcb Designer Name Role Phone Mumtaz Larson MD Primary Care Provider + [phone] Encounter Details Date Type Department Care Team (Late st Contact Info) Description 10/03/2020 Transcribed Document [facility] Neurology - [address] [id number] Jass Ordonez MD [address] [place] [address] [place] [address] Social History Tobacco Use Types Packs/Day Years [...] active drainage bandage moderately saturated with blood 5/5 silt appropriate documented in this encounter Plan of Treatment Not on file documented as of this encounter Visit Diagnoses Not on filedocumented in this encounter Care Teams Printed Circuit Board Pcb Designer Relationship Specialty Start Date End Date Mumtaz Larson MD [address] [place] [facility] [address] [place] [address] PCP - General Family Medicine 08/26/22 documented as of this encounter
--- OUTSIDE RECORDS SUMMARY | 2025-09-17 11:14 | XMS_ITS | Clinical Summary ---
Author Organization [employer] ([place], [place], [place], [place], [place]) Address [address] [place] [address] Care Team Providers Care Training And Documentation Specialist Name Role Phone Mumtaz Larson MD Primary Care Provider + [phone] Allergies Active Allergy Reactions Criticality Noted Date [...] Colorectal Cancer Screening 1955 Diabetic Kidney Health Evaluation (KED) 1953 FOBT/FIT 1953 Fit-DNA (Cologuard) 1955 Sigmoidoscopy 1953 Diabetic Eye Exam 1963 Shingles Vaccine (Zoster) (1 of 2) 1972 Respiratory Syncytial Virus (RSV) Adult or (1 - Risk 60-74 years 1-dose series) 2013 Pneumococcal 50+ years (2 of 2 - PPSV23, PCV20, or PCV21) 09/28/2019 08/03/2019 COVID-19 VACCINE (3 - Pfizer risk series) 03/04/2021 02/04/2021, 12/27/2020 Medicare Initial AWV [id number] 10/19/2022 Hemoglobin A1C 03/18/2024 09/17/2023, 02/01/2023 Falls Risk Screening 10/18/2024 Tobacco Cessation Counseling and Screening (12+) 12/19/2024 12/20/2023 Influenza Vaccine (#1) 2025 09/16/2022, 2018 DTAP/TDAP/TD VACCINES (2 - Td or Tdap) 07/09/2032 Hepatitis C Screening Completed 04/12/2022 Procedures Procedure Name Priority Date/Time Associated Diagnosis Comments HEMOGLOBIN A1C Routine 09/17/2023 12:23 PM EST Preop examination HEPATITIS PANEL, ACUTE Routine 04/12/2022 3:41 AM EDT from Last 3 Months or Most Recently Relevant to Health Maintenance Results * Hemoglobin A1c (09/17/2023 12:23 PM EST) Hemoglobin A1C 5.1 4.2 - 6.3 % 09/17/2023 2:13 PM EST [facility] Comment: Hemoglobin A1C levels are related to mean glucose during the preceding 2-3 months. Less than 7% demonstrates glycemic control in diabetic patients. Hemoglobin AlC % Suggested Diagnosis > or = 6.5 Diabetic 5.7 - 6.4 Prediabetic <5.7 Non-diabetic eAVG Glucose 99.67 mg/dL 09/17/2023 2:13 PM EST [facility] Blood Venipuncture / Unknown 09/17/2023 12:23 PM EST 09/17/2023 1:27 PM EST us Jose Armando Hubbard MD LAB BLOOD ORDERABLES Final Res ult [facility] [address] [place] [address], [facility] [phone] * Hepatitis panel, acute (04/12/2022 3:41 AM [...] 3:41 AM EDT 04/12/2022 7:43 AM EDT [facility] Historical Provider LAB BLOOD ORDERABLES nal Result [facility] [address] [phone] from Last 3 Months or Most Recently Relevant to Health Maintenance Insurance [facility] MEDICARE ADVANTAGE Advance Directives For more information, please contact: [phone] * Full Code (Latest Code Status on File) Date Activated Date Inactivated Comments 09/22/2023 5:16 AM 09/29/2023 3:27 PM * Full Code Date Activated Date Inactivated Comments 02/03/2023 9:28 AM 02/03/2023 4:23 PM * Full Code Date Activated Date Inactivated Comments 09/17/2022 7:36 AM 09/17/2022 12:42 PM Care Teams Training And Documentation Specialist Relationship Specialty Start Date End Date Mumtaz Larson MD [address] [facility] [address] [place] [address] PCP - General Family Medicine 08/26/22
--- OUTSIDE RECORDS SUMMARY | 2025-09-17 11:14 | XMS_ITS | Encounter Summary ---
Author Organization [employer] ([place], [place], [place], [place], [place]) Address [address] [place] [address] Care Team Providers Care Ob/Gyn Physician Name Role Phone Mumtaz Larson MD Primary Care Provider + [phone] Encounter Details Date Type Department Care Team (Late st Contact Info) Description 10/03/2020 Transcribed Document [facility] [place] [facility] [place] [address] ProviderGabriel MD [address] [place] [address] Social History Tobacco Use Types Packs/Day Years Used Date Smoking Tobacco: Never Assessed Sex and Gender Information Value Date Recorded Sex Assigned at Male 05/13/2022 12:59 PM CDT Legal Sex Male 1:44 PM CDT Gender Identity Male 05/13/2022 12:59 PM CDT Sexual Orientation Not on file documented as of this encounter Miscellaneous Notes * Cerner Conversion Note - Gabriel ProviderMD - 10/03/2020 1:09 PM FINANCIAL ANALYSIS MANAGER Initial Discharge Planning Entered On: 10/03/2020 13:17 EST Performed On: 10/03/2020 13:09 EST by DAVID DAI RN-Senior Safety Support Manager Initial Assessment I Previously Documented Living Environment : No qualifying data available. Living Situation : Home Patient Lives With : Adult Child/Children, Family member(s), Spouse Is the Patient a Caregiver at Home? : No Emergency Contact #1 : `Clare King Emergency Contact #1 Phone Number : `[phone] Emergency Contact #1 Relationship : ` Emergency Contact #2 : none` Emergency Contact #2 Phone Number : none` Emergency Contact #2 Relationship : none` Enter Doctors Name : MUMTAZ LARSON (REF) Kyrie Does Patient have PCP Listed? : Yes DAVID DAI RN-Senior Safety Support Manager - 10/03/2020 13:09 EST Initial Assessment II Sensory and Motor Deficits : None Current Home Treatments and Equipment : BiPAP, Walker Does the Patient have a Floor to SNF Benefit? : Yes DAVID DAI RN-Senior Safety Support Manager - 10/03/2020 13:09 EST Discharge Needs I Anticipated Discharge Date : 10/03/2020 EST Anticipated Discharge To, CM : Home with family care Current Home Treatment/Equipment : Current Home Treatment/Equipment No qualifying data available. Post Acute/Home Treatments : None Documentation Status Complete : Yes DAVID DAI RN-Senior Safety Support Manager - 10/03/2020 13:09 EST Discharge Needs II Professional Skilled Services : Professional Skilled Services No qualifying data available. Needs Assistance with Transportation : No DAVID DAI RN-Senior Safety Support Manager - 10/03/2020 13:09 EST Narrative Note Narrative Note : 64yo male pt s/p L4-5 TLIF. Met with pt at bedside to discuss DCP. Pt has DME at home. He ambulated 380ft with therapy. Pt denies needs. Pt dc'd home today. DAVID DAI RN-Senior Safety Support Manager - 10/03/2020 13:09 EST Electronically signed by Horace Polanco Conversion Joy Loading Machine Operator Cerner at 02/01/2023 6:50 PM CDT documented in this encounter Plan of Treatment Not on file documented as of this encounter Visit Diagnoses Not on filedocumented in this encounter Care Teams Ob/Gyn Physician Relationship Specialty Start Date End Date Mumtaz Larson MD [address] [place] [facility] [address] [place] [address] PCP - General Family Medicine 08/26/22 documented as of this encounter
--- OUTSIDE RECORDS SUMMARY | 2025-09-17 11:14 | XMS_ITS | Encounter Summary ---
Author Organization [employer] ([place], [place], [place], [place], [place]) Address [address] [place] [address] Care Team Providers Care Field Superintendent Name Role Phone Mumtaz Larson MD Primary Care Provider + [phone] Encounter Details Date Type Department Care Team (Late st Contact Info) Description 10/03/2020 Transcribed Document [facility] [place] [address] ProviderGabriel MD [address] [place] [address] Social History Tobacco Use Types Packs/Day Years [...] - Gabriel ProviderMD - 10/03/2020 5:17 PM MEASURING MACHINE TENDER Nursing Discharge Summary Entered On: 10/03/2020 17:18 EST Performed On: 10/03/2020 17:17 EST by Jolie Rizzo Lpn Discharge Documentation Discharge Date/Time : 10/03/2020 14:43 EST Patient Disposition, General : Discharge Discharge To : Home with ambulatory/outpatient follow-up IV Discontinued : Yes Medications Given to Patient : Yes Jolie Rizzo Lpn - 10/03/2020 17:17 EST Electronically signed by [facility] Conversion Scale Tank Operator Cerner at 02/01/2023 6:48 PM CDT documented in this encounter Plan of Treatment Not on file documented as of this encounter Visit Diagnoses Not on filedocumented in this encounter Care Teams Field Superintendent Relationship Specialty Start Date End Date Mumtaz Larson MD [address] [place] [facility] [address] [place] [address] PCP - General Family Medicine 08/26/22 documented as of this encounter
--- OUTSIDE RECORDS SUMMARY | 2025-09-17 11:14 | XMS_ITS | Clinical Summary ---
Author Organization Healthcare Address [address] [id number] Care Team Providers Care Optician Apprentice Name Role Phone Mumtaz Larson MD Primary Care Provider + [phone] Allergies No known active allergies Medications tamsulosin [...] Date Last Done Comments [facility]-Depression Screening 1955 [facility]-/Child/Adol SDOH Screenings 1955 [facility]- SDOH Screenings 1971 [facility]-Adult SDOH Screenings 1971 [facility]-DTaP,Tdap,and Td Vaccine s (1 - Tdap) 1972 CT Colonography 1998 Colonoscopy 1998 FIT-DNA 1998 FIT 1998 FOBT 1998 Sigmoidoscopy 1998 [facility]-Colorectal Cancer Screening 1998 [facility]-Zoster Vaccines (1 of 2) 2003 [facility]-Pneumococcal Vaccine: 50 + Years (2 of 2 - PCV20 or PCV21) 08/03/2020 08/03/2019 SRT-XSGZC-30 Vaccine (3 - season) 2025 02/04/2021, 12/27/2020 [facility]-Influenza Vaccine (#1) 06/18/202507/22, 07/22/2017 [...] patient's age to complete this topic [place] [address] [address] [place] [address] MEDICARE [facility] Care Teams Optician Apprentice Relationship Specialty Start Date End Date Mumtaz Larson MD [address] [place] [address] PCP - General 02/28/21
--- OUTSIDE RECORDS SUMMARY | 2025-09-17 11:14 | XMS_ITS | Encounter Summary ---
Author Organization [employer] ([place], [place], [place], [place], [place]) Address [address] [place] [address] Care Team Providers Care Shipping Agent Name Role Phone Mumtaz Larson MD Primary Care Provider + [phone] Encounter Details Date Type Department Care Team (Late st Contact Info) Description 10/02/2020 Transcribed Document [facility] [place] [facility] [place] [address] ProviderGabriel MD [address] [place] [address] Social History Tobacco Use Types Packs/Day Years Used Date Smoking Tobacco: Never Assessed Sex and Gender Information Value Date Recorded Sex Assigned at Male 05/13/2022 12:59 PM CDT Legal Sex Male 1:44 PM CDT Gender Identity Male 05/13/2022 12:59 PM CDT Sexual Orientation Not on file documented as of this encounter Miscellaneous Notes * Cerner Conversion Note - Gabriel ProviderMD - 10/02/2020 6:27 PM CADMIUM BURNER Meds to Bed Enrollment Entered On: 10/03/2020 7:14 EST Performed On: 10/02/2020 18:27 EST by Jeromy Beach IMPROVEMENT SPECIALIST LEAD Meds to Bed Enrollment Patient Enrollment Decision: : Yes/enroll in meds to bed program Jeromy Beach PHARMACY TECH LEAD - 10/03/2020 7:14 EST documented in this encounter Plan of Treatment Not on file documented as of this encounter Visit Diagnoses Not on filedocumented in this encounter Care Teams Shipping Agent Relationship Specialty Start Date End Date Mumtaz Larson MD [address] [facility] [address] [place] [phone] PCP - General Family Medicine 08/26/22 documented as of this encounter
--- OUTSIDE RECORDS SUMMARY | 2025-09-17 11:14 | XMS_ITS | Encounter Summary ---
Author Organization [employer] ([place], [place], [place], [place], [place]) Address [address] [place] [address] Care Team Providers Care Linux Admin Engineer Name Role Phone Mumtaz Larson MD Primary Care Provider + [phone] Encounter Details Date Type Department Care Team (Late st Contact Info) Description 10/03/2020 Transcribed Document [facility] [place] [facility] [address] ProviderGabriel MD [address] [place] [address] Social History Tobacco Use Types Packs/Day Years Used Date Smoking Tobacco: Never Assessed Sex and Gender Information Value Date Recorded Sex Assigned at Male 05/13/2022 12:59 PM CDT Legal Sex Male 1:44 PM CDT Gender Identity Male 05/13/2022 12:59 PM CDT Sexual Orientation Not on file documented as of this encounter Miscellaneous Notes * Cerner Conversion Note - Gabriel ProviderMD - 10/03/2020 11:44 AM FRAME STRAIGHTENER Treatment Intervention, PT Entered On: 10/03/2020 14:39 EST Performed On: 10/03/2020 14:18 EST by BELLA MORAN PT General Information, PT Visit Type, PT : Treatment Note Patient Orders : Order Date Order Ordering 10/02/2020 17:09 Physical Therapy Eval and Treat Ordered By: RUSLAN FRAZIER MD-SN 10/03/2020 11:44 PT Additional Treatment Ordered By: [...] Rails, two Stair Assist : Independent, modified EBLLA MORAN, PT - 10/03/2020 14:29 EST Edu Topics Physical Therapy Education Grid Role of Physical Therapy : Verbalizes understanding BELLA MORAN PT - 10/03/2020 14:29 EST Indication Assesessment, [...] BELLA MORAN PT - 10/03/2020 14:29 EST Digital Operations Analyst Goals Ambulation LTG Grid Goal #1 Device [...] Continued Therapy at Discharge : No BELLA MORAN, PT - 10/03/2020 14:29 EST Loco PT Charges PT Therap. Exercise 15 min : 1 BELLA MORAN, PT - 10/03/2020 14:29 EST Electronically signed by [facility] Conversion Electric Organ Assembler Cerner at 02/01/2023 6:50 PM CDT documented in this encounter Plan of Treatment Not on file documented as of this encounter Visit Diagnoses Not on filedocumented in this encounter Care Teams Linux Admin Engineer Relationship Specialty Start Date End Date Mumtaz Larson MD [address] [place] [facility] [address] [place] [address] PCP - General Family Medicine 08/26/22 documented as of this encounter
--- OUTSIDE RECORDS SUMMARY | 2025-09-17 11:14 | XMS_ITS | Encounter Summary ---
Author Organization [employer] ([place], [place], [place], [place], [place]) Address [address] [place] [address] Care Team Providers Care Job Coach/Job Developer Name Role Phone Mumtaz Larson MD Primary Care Provider + [phone] Encounter Details Date Type Department Care Team (Late st Contact Info) Description 10/02/2020 Transcribed Document [facility] [place] Family Medicine [address] [place] [address] ProviderGabriel MD [address] [place] [address] Social History Tobacco Use Types Packs/Day Years [...] - Historical ProviderMD - 10/02/2020 5:08 PM BINDER STRIPPER HAND Evaluation, Physical Therapy Entered On: 10/03/2020 9:41 EST Performed On: 10/03/2020 9:36 EST by ARMANDO LUO Student-Physical Therapist General Information, PT Visit Type, [...] L4-5 Hx: DM type II, arthritis, GERD, STEBBINS, HTN, BRETT, microscopic colitis, prostate ca. Sx: [...] WFL Left LE Strength : WFL ARMANDO ULO Student-Physical Therapist - 10/03/2020 9:41 EST Functional [...] LUO Student-Physical Therapist - 10/03/2020 10:54 EST Blood Bank Order Control Clerk Goals Ambulation LTG Grid Goal #1 Device [...] LUO Student-Physical Therapist - 10/03/2020 10:54 EST documented in this encounter Plan of Treatment Not on file documented as of this encounter Visit Diagnoses Not on filedocumented in this encounter Care Teams Job Coach/Job Developer Relationship Specialty Start Date End Date Mumtaz Larson MD [address] [place] [facility] [address] [place] [address] PCP - General Family Medicine 08/26/22 documented as of this encounter
--- OUTSIDE RECORDS SUMMARY | 2025-09-17 11:14 | XMS_ITS | Encounter Summary ---
Author Organization [employer] ([place], [place], [place], [place], [place]) Address [address] [place] [address] Care Team Providers Care Floodplain Manager Name Role Phone Mumtaz Larson MD Primary Care Provider + [phone] Encounter Details Date Type Department Care Team (Late st Contact Info) Description 10/02/2020 Transcribed Document [address] [address] Angeline Amos MD [facility] [address] [address] Social History Tobacco Use Types [...] is a 64 yo male admitted to [facility] per Dr. Ordonez for an L4-5 TLIF. [...] = 1 Cap, Oral, Daily Flonase 1 [place], Nostrils Both, Daily levothyroxine 50 mcg (0.05 [...] on filedocumented in this encounter Care Teams Floodplain Manager Relationship Specialty Start Date End Date Mumtaz Larson MD [address] [place] [facility] [address] [place] [address] PCP - General Family Medicine 08/26/22 documented as of this encounter
--- OUTSIDE RECORDS SUMMARY | 2025-09-17 11:14 | XMS_ITS | Encounter Summary ---
Author Organization [employer] ([place], [place], [place], [place], [place]) Address [address] [place] [address] Care Team Providers Care Business Operations Manager Name Role Phone Mumtaz Larson MD Primary Care Provider + [phone] Encounter Details Date Type Department Care Team (Late st Contact Info) Description 10/02/2020 Transcribed Document [facility] [place] Family Medicine [address] [place] [address] ProviderGabriel MD [address] [place] [address] Social History Tobacco Use Types Packs/Day Years [...] - Gabriel ProviderMD - 10/02/2020 5:08 PM THERAPEUTIC CASE MANAGER Pain Assessment Entered On: 10/03/2020 4:16 EST [...] filedocumented in this encounter Care Teams Business Operations Manager Relationship Specialty Start Date End Date Mumtaz Larson MD [address] [facility] [address] [place] [address] PCP - General Family Medicine 08/26/22 documented as of this encounter
--- OUTSIDE RECORDS SUMMARY | 2025-09-17 11:14 | XMS_ITS | Encounter Summary ---
Author Organization [employer] ([place], [place], [place], [place], [place]) Address [address] [place] [address] Care Team Providers Care Broth Mixer Name Role Phone Mumtaz Larson MD Primary Care Provider + [phone] Encounter Details Date Type Department Care Team (Late st Contact Info) Description 10/02/2020 Transcribed Document [facility] [place] [address] [place] [address] ProviderGabriel MD [address] [place] [address] Social History Tobacco Use Types Packs/Day Years [...] - Gabriel ProviderMD - 10/02/2020 10:00 PM TOOL AND DIE SUPERVISOR Pain Assessment Entered On: 10/03/2020 1:50 [...] on filedocumented in this encounter Care Teams Broth Mixer Relationship Specialty Start Date End Date Mumtaz Larson MD [facility] [address] [place] [address] PCP - General Family Medicine 08/26/22 documented as of this encounter
--- OUTSIDE RECORDS SUMMARY | 2025-09-17 11:14 | XMS_ITS | Encounter Summary ---
Author Organization [employer] ([place], [place], [place], [place], [place]) Address [address] [place] [address] Care Team Providers Care Site Safety Manager Name Role Phone Mumtaz Larson MD Primary Care Provider + [phone] Encounter Details Date Type Department Care Team (Late st Contact Info) Description 10/02/2020 Transcribed Document [facility] [place] [facility] [place] [address] ProviderGabriel MD [address] [place] [address] Social History Tobacco Use Types Packs/Day Years [...] - Gabriel ProviderMD - 10/02/2020 3:30 PM [facility] Main OR PACU Summary Primary Physician: RUSLAN FRAZIER MD-SNU Finalized Date/Time: 10/02/20 18:36:57 Pt. Name: GARCIATIEN Wilmer Delcid/Sex: 1955 Male Med Rec #: [id number] Physician: RUSLAN FRAZIER MD-SNU Financial #: [id number] Pt. Type: I Room/Bed: 645/1 Admit/Disch: 10/02/20 06:11:00 - Institution: [facility] Main OR PACU I Case Times Entry 1 In PACU I 10/02/20 17:18:00 Ready for PACU 10/02/20 18:33:00 Discharge Discharge from PACU 10/02/20 18:33:00 I Last Modified By: Lina Albarran Rn 10/02/20 18:36:39 Finalized By: Lina Albarran, Rn Document Signatures Signed By: Lina Albarran Rn 10/02/20 18:36 Electronically signed by Sherri [facility] Conversion Hydroelectric Systems Technician Cerner at 02/01/2023 7:05 PM CDT documented in this encounter Plan of Treatment Not on file documented as of this encounter Visit Diagnoses Not on filedocumented in this encounter Care Teams Site Safety Manager Relationship Specialty Start Date End Date Mumtaz Larson MD [address] [facility] [address] [place] [address] PCP - General Family Medicine 08/26/22 documented as of this encounter
--- OUTSIDE RECORDS SUMMARY | 2025-09-17 11:14 | XMS_ITS | Encounter Summary ---
Author Organization [employer] ([place], [place], [place], [place], [place]) Address [address] [place] [address] Care Team Providers Care Barrel Painter Name Role Phone Mumtaz Larson MD Primary Care Provider + [phone] Encounter Details Date Type Department Care Team (Late st Contact Info) Description 10/02/2020 Transcribed Document [facility] [place] [facility] [place] [address] ProviderGabriel MD [address] [place] [address] Social History Tobacco Use Types Packs/Day Years [...] - Gabriel ProviderMD - 10/02/2020 3:30 PM DOCUMENT ADVISOR [facility] Main OR Preop Summary Primary Physician: RUSLAN FRAZIER MD-SANDEEP Finalized Date/Time: 10/02/20 15:52:12 Pt. Name: RADHA TIEN Wilmer Delcid/Sex: 1955 Male Med Rec #: [id number] Physician: RUSLAN FRAZIER MD-SANDEEP Financial #: [id number] Pt. Type: I Room/Bed: ASA/6 Admit/Disch: 10/02/20 06:11:00 - Institution: [facility] PreOp Case Times Entry 1 In Preop 10/02/20 11:58:00 Ready for Holding n/a Room Patient Ready for 10/02/20 13:30:00 Surgery Patient Out of Preop 10/02/20 14:47:00 Patient Out of n/a Holding Room Last Modified By: Corinna Ulrich RN 10/02/20 15:52:11 [facility] PreOp Case Times Audit 10/02/20 15:52:11 Range Manager: ASAD Modifier: [email or web address] <+> 1 Patient Out of Preop 10/02/20 13:33:25 Range Manager: ASAD Modifier: [email or web address] <+> 1 Patient Ready for Surgery Finalized By: Corinna Ulrich, RN Document Signatures Signed By: Corinna Ulrich RN 10/02/20 15:52 Electronically signed by Sherri [facility] Conversion Chief Security Officer Cerner at 02/01/2023 6:57 PM CDT documented in this encounter Plan of Treatment Not on file documented as of this encounter Visit Diagnoses Not on filedocumented in this encounter Care Teams Barrel Painter Relationship Specialty Start Date End Date Mumtaz Larson MD [address] [facility] [address] [place] [phone] PCP - General Family Medicine 08/26/22 documented as of this encounter
--- OUTSIDE RECORDS SUMMARY | 2025-09-17 11:14 | XMS_ITS | Encounter Summary ---
Author Organization [employer] ([place], [place], [place], [place], [place]) Address [address] [place] [address] Care Team Providers Care Inspector Canned Food Reconditioning Name Role Phone Mumtza Larson MD Primary Care Provider + [phone] Encounter Details Date Type Department Care Team (Late st Contact Info) Description 10/02/2020 Transcribed Document [facility] [place] [address] [place] [address] ProviderGabriel MD [address] [place] [address] Social History Tobacco Use Types Packs/Day Years [...] - Gabriel ProviderMD - 10/02/2020 5:08 PM GEOPHYSICAL OPERATOR Pain Assessment Entered On: 10/03/2020 4:16 EST Performed On: 10/03/2020 3:07 EST by Suni Mclain RN Intervention Information: HYDROmorphone Performed by Suni Mclain, RN on 10/03/2020 02:37:00 EST HYDROmorphone,0.5mg IV [...] on filedocumented in this encounter Care Teams Inspector Canned Food Reconditioning Relationship Specialty Start Date End Date Mumtaz Larson MD [address] [place] [facility] [address] [place] [address] PCP - General Family Medicine 08/26/22 documented as of this encounter
--- OUTSIDE RECORDS SUMMARY | 2025-09-17 11:14 | XMS_ITS | Encounter Summary ---
Author Organization [employer] ([place], [place], [place], [place], [place]) Address [address] [place] [address] Care Team Providers Care Fixed Capital Clerk Name Role Phone Mumtaz Larson MD Primary Care Provider + [phone] Encounter Details Date Type Department Care Team (Late st Contact Info) Description 10/03/2020 Transcribed Document [facility] [place] [address] [place] [address] ProviderGabriel MD [address] [place] [address] Social History Tobacco Use Types Packs/Day Years Used Date Smoking Tobacco: Never Assessed Sex and Gender Information Value Date Recorded Sex Assigned at Male 05/13/2022 12:59 PM CDT Legal Sex Male 1:44 PM CDT Gender Identity Male 05/13/2022 12:59 PM CDT Sexual Orientation Not on file documented as of this encounter Miscellaneous Notes * Cerner Conversion Note - Gabriel Holliday MD - 10/03/2020 10:53 AM BROKERAGE CLERK Patient Education Materials Follows: FAQ - Patient [...] through the local health department and the [place] Department for Public Health. Those organizations are [...] and need to call 911, notify the beam saw operator that you have, or think you [...] clean your hands with an alcohol-based hand opener that contains at least 60% alcohol. Clean your hands often. ??? Wash hands: Wash your hands often with soap and water for at least 20 seconds when visibly dirty. This is especially important after blowing your nose, coughing or sneezing, and going to the bathroom, and before eating or preparing food. ??? Hand opener: Use an alcohol-based hand opener with at least 60% alcohol, covering all [...] and water or put them in the staff air defense officer. Clean all high-touch surfaces every day. Clean [...] or body fluids on them. ??? Household mail handlers supervisor and disinfectants: Clean the area or item [...] list of disinfectants can be found here: https://www.epa.gov/pesticide-registration/itcu-e-bdqfjbsaogyqq-fka-kqlnvyy-ke rs-cov-2 Orthopedics Spinal Fusion, Adult, Care After [...] these instructions at home: Medicines ??? Take bnsg-sgg-pkplqaq and prescription medicines only as told by [...] and water are not available, use hand opener. ? Change your dressing as told by [...] urine clear or pale yellow. ? Take tfsi-wnz-wpgvwny or prescription medicines. ? Eat foods that [...] 04/23/2006 Document Revised: 06/24/2019 Document Reviewed: 09/22/2017 [employer] Patient Education ? 2020 [employer]. documented in this encounter Plan of Treatment Not on file documented as of this encounter Visit Diagnoses Not on filedocumented in this encounter Care Teams Fixed Capital Clerk Relationship Specialty Start Date End Date Mumtaz Larson MD [address] [facility] [address] [place] [address] PCP - General Family Medicine 08/26/22 documented as of this encounter
--- OUTSIDE RECORDS SUMMARY | 2025-09-17 11:14 | XMS_ITS | Encounter Summary ---
Author Organization [employer] ([place], [place], [place], [place], [place]) Address [address] [place] [address] Care Team Providers Care Electromatic Typist Name Role Phone Mumtaz Larson MD Primary Care Provider + [phone] Encounter Details Date Type Department Care Team (Late st Contact Info) Description 10/03/[address] [facility] [place] Family Medicine [facility] [place] [address] ProviderGabriel MD [address] [place] [address] Social History Tobacco Use Types Packs/Day Years Used Date Smoking Tobacco: Never Assessed Sex and Gender Information Value Date Recorded Sex Assigned at Male 05/13/2022 12:59 PM CDT Legal Sex Male 1:44 PM CDT Gender Identity Male 05/13/2022 12:59 PM CDT Sexual Orientation Not on file documented as of this encounter Miscellaneous Notes * Cerner Conversion Note - Gabriel ProviderMD - 10/03/2020 3:31 PM NATUROPATHIC PHYSICIAN Discharge Summary, PT Entered On: 10/03/2020 15:32 [...] DEL MCKAY, PT - 10/03/2020 15:31 EST Warehouse Shift Supervisor Goals Ambulation LTG Grid Goal #1 Device : Walker, front wheel Distance : 400' Assist : Independent, modified Date to Meet : 10/17/2020 EST Goal Status : Goal met DEL MCKAY, PT - 10/03/2020 15:31 EST Electronically signed by [facility], [facility] Conversion Sheet Rock Installation Helper Cerner at 02/01/2023 6:58 PM CDT documented in this encounter Plan of Treatment Not on file documented as of this encounter Visit Diagnoses Not on filedocumented in this encounter Care Teams Electromatic Typist Relationship Specialty Start Date End Date Mumtaz Larson MD [address] [facility] [address] [place] [address] PCP - General Family Medicine 08/26/22 documented as of this encounter
== END 2025-09-15 23:59 | disposition home or self-care (01) ==
LOC: LAB.DROPOF 09-17 10:29
PROVIDERS: PCP Family Medicine; Visit Provider Student in an Organized Health Care Education/Training Program
DX: J06.9 Acute upper respiratory infection, unspecified (principal)
CPT/HCPCS: 87636

== ENCOUNTER 2025-09-18 10:46 | Outpatient (CLI) | payer MEDICARE, SELFPAY ==
--- NOTE | 2025-09-18 10:49 | XR_ITS ---
FINAL REPORT CLINICAL HISTORY: cough pneumonia f/u COMPARISON: 02/15/2025 FINDINGS: PA and lateral views of the chest were obtained. The cardiac and mediastinal silhouettes are within normal limits. The lungs are clear. There are new right larger than left lower lung opacities noted, that may represent bilateral pneumonia. No pleural effusions are identified. No acute osseous abnormality is identified. IMPRESSION: Right larger than left lower lung opacities noted, not seen on the prior exam of 02/15/2025, that may represent bilateral pneumonia. Reviewed, Interpreted and Dictated by Lelo Tapia MD Transcribed by Myriam Maldonado Authenticated and [facility]
--- OUTSIDE RECORDS SUMMARY | 2025-09-18 10:49 | XMS_ITS | Referral Summary ---
Author Organization [employer] ([place], [place], [place], [place], [place]) Address [address] [place] [address] Care Team Providers Care Supervisor Hydrochloric Area Name Role Phone Mumtaz Larson MD Primary Care Provider + [phone] Allergies Active Allergy Reactions Criticality Noted Date [...] Date Macario rded Speak language other than Kyrgyz at home Not on file 10/29/2023 Want [...] - 6.3 % 09/17/2023 2:13 PM EST [facility] Comment: Hemoglobin A1C levels are related to mean glucose during the preceding 2-3 months. Less than 7% demonstrates glycemic control in diabetic patients. Hemoglobin AlC % Suggested Diagnosis > or = 6.5 Diabetic 5.7 - 6.4 Prediabetic <5.7 Non-diabetic eAVG Glucose 99.67 mg/dL 09/17/2023 2:13 PM EST [facility] Blood Venipuncture / Unknown 09/17/2023 12:23 PM EST 09/17/2023 1:27 PM EST Jose Armando Hubbard MD LAB BLOOD ORDERABLES Final Res ult Performing Organization Address City/[facility]/ZIP Co de Phone Number [facility] [address] [phone] * Hepatitis panel, acute (04/12/2022 3:41 AM [...] 3:41 AM EDT 04/12/2022 7:43 AM EDT [facility] Provider LAB BLOOD ORDERABLES Fi nal Result Performing Organization Address City/[facility]/ZIP Co de Phone Number [facility] [address] [phone] from Last 3 Months or Most Recently Relevant to Health Maintenance Insurance [facility] MEDICARE ADVANTAGE Advance Directives For more information, please contact: [phone] * Full Code (Latest Code Status on File) Date Activated Date Inactivated Comments 09/22/2023 5:16 AM 09/29/2023 3:27 PM * Full Code Date Activated Date Inactivated Comments 02/03/2023 9:28 AM 02/03/2023 4:23 PM * Full Code Date Activated Date Inactivated Comments 09/17/2022 7:36 AM 09/17/2022 12:42 PM Care Teams Supervisor Hydrochloric Area Relationship Specialty Start Date End Date Mumtaz Larson MD 12[address] [facility] [address] [place] [phone] PCP - General Family Medicine 08/26/22
--- OUTSIDE RECORDS SUMMARY | 2025-09-18 10:49 | XMS_ITS ---
Author Organization [employer] ([place], [place], [place], [place], [place]) Address [address] [facility] [place] [address] Care Team Providers Care Case Filler Name Role Phone Mumtaz Larson MD Primary Care Provider [phone] Active Problems Problem Noted Date Diagnosed Date [...]
--- OUTSIDE RECORDS SUMMARY | 2025-09-18 10:49 | XMS_ITS | Encounter Summary ---
Author Organization [employer] ([place], [place], [place], [place], [place]) Address [address] [place] [address] Care Team Providers Care Button Station Worker Name Role Phone Mumtaz Larson MD Primary Care Provider + [phone] Encounter Details Date Type Department Care Team (Late st Contact Info) Description 10/02/2020 Transcribed Document [facility] Family [facility] [address] [place] [address] ProviderGabriel MD [address] [place] [address] Social History Tobacco Use Types Packs/Day Years [...] - Gabriel ProviderMD - 10/02/2020 10:00 PM RUBBER CHEMIST Pain Assessment Entered On: 10/03/2020 1:50 EST [...] on filedocumented in this encounter Care Teams Button Station Worker Relationship Specialty Start Date End Date Mumtaz Larson MD [facility] [address] [place] [address] PCP - General Family Medicine 08/26/22 documented as of this encounter
--- OUTSIDE RECORDS SUMMARY | 2025-09-18 10:49 | XMS_ITS | Encounter Summary ---
Author Organization [employer] ([place], [place], [place], [place], [place]) Address [address] [place] [address] Care Team Providers Care Rotor Coil Taper Name Role Phone Mumtaz Larson MD Primary Care Provider [phone] Encounter Details Date Type Department Care Team (Late st Contact Info) Description 10/02/2020 Transcribed Document [facility] Family Medicine [facility] [place] [address] ProviderGabriel MD [address] [place] [address] Social History Tobacco Use Types Packs/Day Years [...] - Gabriel ProviderMD - 10/02/2020 3:30 PM DIRECTOR OF RETAIL OPERATIONS [facility] Main OR Preop Summary Primary Physician: RUSLAN FRAZIER MD-SANDEEP Finalized Date/Time: 10/02/20 15:52:12 Pt. Name: RADHA TIEN Wilmer Delcid/Sex: 1955 Male Med Rec #: [id number] Physician: RUSLAN FRAZIER MD-SANDEEP Financial #: [id number] Pt. Type: I Room/Bed: ASA/6 Admit/Disch: 10/02/20 06:11:00 - Institution: [facility] PreOp Case Times Entry 1 In Preop 10/02/20 11:58:00 Ready for Holding n/a Room Patient Ready for 10/02/20 13:30:00 Surgery Patient Out of Preop 10/02/20 14:47:00 Patient Out of n/a Holding Room Last Modified By: Corinna Ulrich RN 10/02/20 15:52:11 [facility] PreOp Case Times Audit 10/02/20 15:52:11 Network Security Officer: ASAD Modifier: [email or web address] <+> 1 Patient Out of Preop 10/02/20 13:33:25 Network Security Officer: ASAD Modifier: [email or web address] <+> 1 Patient Ready for Surgery Finalized By: Corinna Ulrich, RN Document Signatures Signed By: Corinna Ulrich RN 10/02/20 15:52 Electronically signed by Sherri [facility] Conversion Financial Accounting Manager Cerner at 02/01/2023 6:57 PM CDT documented in this encounter Plan of Treatment Not on file documented as of this encounter Visit Diagnoses Not on filedocumented in this encounter Care Teams Rotor Coil Taper Relationship Specialty Start Date End Date Mumtaz Larson MD 12[address] [facility] [address] [place] [phone] PCP - General Family Medicine 08/26/22 documented as of this encounter
--- OUTSIDE RECORDS SUMMARY | 2025-09-18 10:49 | XMS_ITS | Encounter Summary ---
Author Organization [employer] ([place], [place], [place], [place], [place]) Address [address] [place] [address] Care Team Providers Care Imager Name Role Phone Mumtaz Larson MD Primary Care Provider + [phone] Encounter Details Date Type Department Care Team (Late st Contact Info) Description 10/02/2020 Transcribed Document [facility] [place] [facility] [place] [address] ProviderGabriel MD [address] [place] [address] Social History Tobacco Use Types Packs/Day Years [...] - Gabriel ProviderMD - 10/02/2020 6:07 AM TEMPERATURE REGULATOR Admission History, Adult Entered On: 10/02/2020 21:04 EST Performed On: 10/02/2020 6:07 EST by Snui Mclain RN Advance Directive Patient has Advance [...] Ambulatory Legal Guardian : Spouse Support Person/Patient Retail Sales Associate Bilingual : Yes Support Person/Pt Rep Name : Clare King - Support Person/Pt Rep Contact Information : [phone] Want Family/Rep/Phys Notified of Admit : No Emergency Contact #1 : `Clare King Emergency Contact #1 Phone Number : `[phone] Emergency Contact #1 Relationship : ` Emergency Contact #2 : none` Emergency Contact #2 Phone Number : none` Emergency Contact #2 Relationship : none` Information Obtained From : Patient Primary Language : Central African Communication Barrier : None Academic Advisement Director Needed : No Suni Mclain RN - [...] Scale Risk Level : 25-45 Medium Risk Alvo Fall Interventions : Adequate lighting, Assistive devices [...] Source : Measured Height Entry Format : Carson Height, Feet : 6 ft(Converted to: 183 cm, 72 Inch) Height, Inches : 2 Inch(Converted to: 0 ft 2 Inch, 5.08 cm) Clinical Height : 187.96 cm Weight Source : Standing scale Weight Entry Format : Carson Clinical Dosing Weight : 129.86 kg Weight, Pounds : 285.7 lb Body Surface Area (BSA) : 2.53 m2 Body Mass Index : 36.8 kg/m2 (HI) [place] Body Weight : 81 kg Suni Mclain [...] Suni Mclain RN - 10/02/2020 20:57 EST Martin Suicide Severity Rating Scale (C-SSRS) CSSRS Past [...] Any Spiritual/Cultural Needs or Requests : No Restorationism Preference : Judaism Suni Mclain RN - 10/02/2020 20:57 EST Valuables and Belongings Valuables and Belongings : Clothing Clothing : Common streetwear Clothing Disposition : With patient Suni Mclain RN - 10/02/2020 20:57 EST Electronically signed by Sherri [facility] Conversion Ecological Modeler Cerner at 02/01/2023 6:50 PM CDT documented in this encounter Plan of Treatment Not on file documented as of this encounter Visit Diagnoses Not on filedocumented in this encounter Care Teams Imager Relationship Specialty Start Date End Date Mumtaz Larson MD [address] [place] [facility] [address] [place] [phone] PCP - General Family Medicine 08/26/22 documented as of this encounter
--- OUTSIDE RECORDS SUMMARY | 2025-09-18 10:49 | XMS_ITS | Clinical Summary ---
Author Organization [employer] ([place], [place], [place], [place], [place]) Address [address] [place] [address] Care Team Providers Care Opto Mechanical Technician Name Role Phone Mumtaz Larson MD Primary Care Provider + [phone] Allergies Active Allergy Reactions Criticality Noted Date [...] Date Macario rded Speak language other than Martiniquais at home Not on file 10/29/2023 Want [...] - 6.3 % 09/17/2023 2:13 PM EST [facility] Comment: Hemoglobin A1C levels are related to mean glucose during the preceding 2-3 months. Less than 7% demonstrates glycemic control in diabetic patients. Hemoglobin AlC % Suggested Diagnosis > or = 6.5 Diabetic 5.7 - 6.4 Prediabetic <5.7 Non-diabetic eAVG Glucose 99.67 mg/dL 09/17/2023 2:13 PM EST [facility] Blood Venipuncture / Unknown 09/17/2023 12:23 PM EST 09/17/2023 1:27 PM EST us Jose Armando Hubbard MD LAB BLOOD ORDERABLES Final Res ult [facility] [address] [place] [address], [facility] [phone] * Hepatitis panel, acute (04/12/2022 3:41 AM [...] 3:41 AM EDT 04/12/2022 7:43 AM EDT [facility] Historical Provider LAB BLOOD ORDERABLES nal Result [facility] [address] [phone] from Last 3 Months or Most Recently Relevant to Health Maintenance Insurance [facility] MEDICARE ADVANTAGE Advance Directives For more information, please contact: [phone] * Full Code (Latest Code Status on File) Date Activated Date Inactivated Comments 09/22/2023 5:16 AM 09/29/2023 3:27 PM * Full Code Date Activated Date Inactivated Comments 02/03/2023 9:28 AM 02/03/2023 4:23 PM * Full Code Date Activated Date Inactivated Comments 09/17/2022 7:36 AM 09/17/2022 12:42 PM Care Teams Opto Mechanical Technician Relationship Specialty Start Date End Date Mumtaz Larson MD 12[address] [facility] [address] [place] [phone] PCP - General Family Medicine 08/26/22
--- OUTSIDE RECORDS SUMMARY | 2025-09-18 10:49 | XMS_ITS | Encounter Summary ---
Author Organization [employer] ([place], [place], [place], [place], [place]) Address [address] [place] [address] Care Team Providers Care Or Assistant Name Role Phone Mumtaz Larson MD Primary Care Provider + [phone] Encounter Details Date Type Department Care Team (Late st Contact Info) Description 10/02/2020 Transcribed Document [facility] [place] Family Medicine [address] [place] [address] ProviderGabriel MD [address] [place] [address] Social History Tobacco Use Types Packs/Day Years [...] - Gabriel ProviderMD - 10/02/2020 5:08 PM POLICY OFFICER Pain Assessment Entered On: 10/03/2020 4:16 EST [...] on filedocumented in this encounter Care Teams Or Assistant Relationship Specialty Start Date End Date Mumtaz Larson MD [address] [facility] [address] [place] [phone] PCP - General Family Medicine 08/26/22 documented as of this encounter
--- OUTSIDE RECORDS SUMMARY | 2025-09-18 10:49 | XMS_ITS | Encounter Summary ---
Author Organization [employer] ([place], [place], [place], [place], [place]) Address [address] [place] [address] Care Team Providers Care Continuing Education Dean Name Role Phone Mumtaz Larson MD Primary Care Provider + [phone] Encounter Details Date Type Department Care Team (Late st Contact Info) Description 10/02/2020 Transcribed Document [facility] [place] [address] ProviderGabriel MD [address] [place] [address] Social History Tobacco Use Types Packs/Day Years [...] - Gabriel ProviderMD - 10/02/2020 6:27 PM CABIN SERVICE AGENT Meds to Bed Enrollment Entered On: 10/03/2020 7:14 EST Performed On: 10/02/2020 18:27 EST by Jeromy Beach STOCK ROOM MANAGER LEAD Meds to Bed Enrollment Patient Enrollment Decision: : Yes/enroll in meds to bed program Jeromy Beach PHARMACY TECH LEAD - 10/03/2020 7:14 EST documented in this encounter Plan of Treatment Not on file documented as of this encounter Visit Diagnoses Not on filedocumented in this encounter Care Teams Continuing Education Dean Relationship Specialty Start Date End Date Mumtaz Larson MD 12[address] [facility] [address] [place] [phone] PCP - General Family Medicine 08/26/22 documented as of this encounter
--- OUTSIDE RECORDS SUMMARY | 2025-09-18 10:49 | XMS_ITS | Clinical Summary ---
Author Organization [facility] Address [address] [place] [address] Care Team Providers Care Penal Officer Name Role Phone Mutmaz Larson MD Primary Care Provider + [phone] Allergies No known active allergies Medications levothyroxine [...] MG/0.1ML nasal spray Call 911. Don't prime. [place] in 1 nostril for overdose. Repeat in [...] history exists Medical Devices Implanted Type Area Electrician Supervisor Substation Device Identifier Shelf Expiration Date Model / Serial / Lot Reload Alhambra Endopath Gst 45mm Wht - [id number] Implanted:Qty : 1 on 06/02/2024 by Rasta Watson MD at [facility] Implant Right: Abdomen [employer] [id number] 11/17/2026 [id number] / / [id number] Stplr Tiss [id number] Lng 86l357ra Strl 1p/U - [id number] Implanted:Qty : 1 on 06/02/2024 by Rasta Watson MD at [facility] Implant Right: Abdomen [employer] ENDO [employer] [id number] 02/14/2026 [id number] / / [id number] Clipapplr M/ Endo Ligaclip Rot 12mm Lg - [id number] Implanted:Qty : 1 on 06/02/2024 by Rasta Watson MD at [facility] Implant Right: Abdomen [employer] [id number] 04/16/2028 [id number] / / [id number] Kt Seal Hemos Abs Floseal Matrx 1.5/Fast/Prep 5000/Iu 10ml - [id number] Implanted:Qty : 1 on 06/02/2024 by Rasta Watson MD at [facility] Implant Right: Abdomen [employer] [id number] 03/02/2025 [id number] / / [id number] Procedures Procedure Name Priority Date/Time Associated Diagnosis Comments HEMOGLOBIN A1C Routine 06/01/2024 9:37 AM EDT from Last 3 Months or Most Recently Relevant to Health Maintenance Results * Hemoglobin A1c (06/01/2024 9:37 AM EDT) Hemoglobin A1C 5.40 4.80 - 5.60 % 06/01/2024 10:18 AM EDT [facility] Blood Venipuncture / Unknown 06/01/2024 9:37 AM EDT 06/01/2024 9:59 AM EDT Narrative [facility] - 06/01/2024 10:18 AM EDT Hemoglobin A1C Ranges: Increased Risk for Diabetes 5.7% to 6.4% Diabetes >= 6.5% Diabetic Goal < 7.0% us Rasta Watson MD LAB BLOOD ORDERABLES Vida l Result [facility]
[address] [place] [address], from Last 3 Months or Most Recently Relevant to Health Maintenance Insurance [facility] Medicare Advantage GROUP PPO Care Teams Penal Officer Relationship Specialty Start Date End Date Mumtaz Larson MD [address] [facility] [address] [place], [place] [id number] PCP - General Family Medicine 02/09/23
--- OUTSIDE RECORDS SUMMARY | 2025-09-18 10:50 | XMS_ITS | Encounter Summary ---
Author Organization [employer] ([place], [place], [place], [place], [place]) Address [address] [place] [address] Care Team Providers Care Building And Construction Manager Name Role Phone Mumtaz Larson MD Primary Care Provider + [phone] Encounter Details Date Type Department Care Team (Late st Contact Info) Description 10/02/2020 Transcribed Document [facility] [place] [address] [place] [address] ProviderGabriel MD [address] [place] [address] Social History Tobacco Use Types Packs/Day Years [...] - Gabriel ProviderMD - 10/02/2020 5:08 PM CAN LINE EXAMINER Pain Assessment Entered On: 10/03/2020 4:16 EST [...] on filedocumented in this encounter Care Teams Building And Construction Manager Relationship Specialty Start Date End Date Mumtaz Larson MD [address] [place] [facility] [address] [place] [address] PCP - General Family Medicine 08/26/22 documented as of this encounter
--- OUTSIDE RECORDS SUMMARY | 2025-09-18 10:50 | XMS_ITS | Encounter Summary ---
Author Organization [employer] ([place], [place], [place], [place], [place]) Address [address] [place] [address] Care Team Providers Care Therapeutic Recreation Leader Name Role Phone Mumtaz Larson MD Primary Care Provider + [phone] Encounter Details Date Type Department Care Team (Late st Contact Info) Description 10/03/2020 Transcribed Document [facility] [place] [facility] [place] [address] ProviderGabriel MD [address] [place] [address] Social History Tobacco Use Types Packs/Day Years [...] - Gabriel ProviderMD - 10/03/2020 10:57 AM SUGAR SAMPLER Stroke/Warfarin Instructions Entered On: 10/03/2020 10:57 EST Performed On: 10/03/2020 10:57 EST by MEL MORILLO RN Stroke/Warfarin Instructions Stroke/TIA Discharge Ins : N/A Warfarin Discharge Ins : N/A MEL MORILLO RN - 10/03/2020 10:57 EST Electronically signed by Sherri [facility] Conversion Bottling Supervisor Cerner at 02/01/2023 7:11 PM CDT documented in this encounter Plan of Treatment Not on file documented as of this encounter Visit Diagnoses Not on filedocumented in this encounter Care Teams Therapeutic Recreation Leader Relationship Specialty Start Date End Date Mumtaz Larson MD [address] [place] [facility] [address] [place] [phone] PCP - General Family Medicine 08/26/22 documented as of this encounter
--- OUTSIDE RECORDS SUMMARY | 2025-09-18 10:50 | XMS_ITS | Encounter Summary ---
Author Organization [employer] ([place], [place], [place], [place], [place]) Address [address] [place] [address] Care Team Providers Care Laboratory Worker Name Role Phone Mumtaz Larson MD Primary Care Provider + [phone] Encounter Details Date Type Department Care Team (Late st Contact Info) Description 10/03/2020 Transcribed Document [facility] [place] Family Medicine [facility] [place] [address] ProviderGabriel MD [address] [place] [address] Social History Tobacco Use Types Packs/Day Years [...] - Gabriel ProviderMD - 10/03/2020 11:44 AM PASTEURIZER Treatment Intervention, PT Entered On: 10/03/2020 14:39 [...] BELLA MORAN PT - 10/03/2020 14:29 EST Distance Education Coordinator Goals Ambulation LTG Grid Goal #1 Device [...] BELLA MORAN, PT - 10/03/2020 14:29 EST Coaling PT Charges PT Therap. Exercise 15 min : 1 BELLA MORAN, PT - 10/03/2020 14:29 EST Electronically signed by Sherri [facility] Conversion Pneumatic Tool Repairer Cerner at 02/01/2023 6:50 PM CDT documented in this encounter Plan of Treatment Not on file documented as of this encounter Visit Diagnoses Not on filedocumented in this encounter Care Teams Laboratory Worker Relationship Specialty Start Date End Date Mumtaz Larson MD [address] [place] [facility] [address] [place] [phone] PCP - General Family Medicine 08/26/22 documented as of this encounter
--- OUTSIDE RECORDS SUMMARY | 2025-09-18 10:50 | XMS_ITS | Encounter Summary ---
Author Organization [employer] ([place], [place], [place], [place], [place]) Address [address] [place] [address] Care Team Providers Care Neonatal Nurse Practitioner Name Role Phone Mumtaz Larson MD Primary Care Provider [phone] Encounter Details Date Type Department Care Team (Late st Contact Info) Description 10/02/2020 Transcribed Document [facility] [place] Family Medicine [facility] [place] [address] ProviderGabriel MD [address] [place] [address] Social History Tobacco Use Types Packs/Day Years [...] - Gabriel ProviderMD - 10/02/2020 3:30 PM RN NEUROLOGY [facility] Main OR PACU Summary Primary Physician: RUSLAN FRAZIER MD-SNU Finalized Date/Time: 10/02/20 18:36:57 Pt. Name: RADHA TIEN Wilmer Delcid/Sex: 1955 Male Med Rec #: [id number] Physician: RUSLAN FRAZIER MD-SNU Financial #: [id number] Pt. Type: I Room/Bed: 645/1 Admit/Disch: 10/02/20 06:11:00 - Institution: [facility] Main OR PACU I Case Times Entry 1 In PACU I 10/02/20 17:18:00 Ready for PACU 10/02/20 18:33:00 Discharge Discharge from PACU 10/02/20 18:33:00 I Last Modified By: Lina Albarran Rn 10/02/20 18:36:39 Finalized By: Lina Albarran, Rn Document Signatures Signed By: Lina Albarran Rn 10/02/20 18:36 documented in this encounter Plan of Treatment [...]
--- OUTSIDE RECORDS SUMMARY | 2025-09-18 10:50 | XMS_ITS | Encounter Summary ---
Author Organization [employer] ([place], [place], [place], [place], [place]) Address [address] [place] [address] Care Team Providers Care Logistics Director Name Role Phone Mumtaz Larson MD Primary Care Provider + [phone] Encounter Details Date Type Department Care Team (Late st Contact Info) Description 10/03/2020 Transcribed Document [facility] Neurology - [address] [id number] Jass Ordonez MD [address] [place] [address] [place] [address] Social History Tobacco Use Types Packs/Day Years [...] on filedocumented in this encounter Care Teams Logistics Director Relationship Specialty Start Date End Date Mumtaz Larson MD [address] [place] [facility] [address] [place] [address] PCP - General Family Medicine 08/26/22 documented as of this encounter
--- OUTSIDE RECORDS SUMMARY | 2025-09-18 10:50 | XMS_ITS | Encounter Summary ---
Author Organization [employer] ([place], [place], [place], [place], [place]) Address [address] [place] [address] Care Team Providers Care Exhibitor Sales Name Role Phone Mumtaz Larson MD Primary Care Provider + [phone] Encounter Details Date Type Department Care Team (Late st Contact Info) Description 10/03/2020 Transcribed Document [facility] [place] [place] Family [place] [address] ProviderGabriel MD [address] [place] [address] Social History Tobacco Use Types Packs/Day Years [...] Gabriel Holliday MD - 10/03/2020 1:17 PM OPERATIONS MANAGEMENT TRAINEE Final Discharge Planning Entered On: 10/03/2020 13:18 EST Performed On: 10/03/2020 13:17 EST by DAVID DAI RN-Driver Messenger Final Discharge Planning Discharge Arrangements : Patient [...] : Yes Discharge To Care Management : Home/Residential/Correction or Self Care - DAVID DAI RN-Driver Messenger - 10/03/2020 13:17 EST Electronically signed by [facility], [facility] Conversion Theology Professor Cerner at 02/01/2023 6:54 PM CDT documented in this encounter Plan of Treatment Not on file documented as of this encounter Visit Diagnoses Not on filedocumented in this encounter Care Teams Exhibitor Sales Relationship Specialty Start Date End Date Mumtaz Larson MD [address] [facility] [address] [place] [address] PCP - General Family Medicine 08/26/22 documented as of this encounter
--- OUTSIDE RECORDS SUMMARY | 2025-09-18 10:50 | XMS_ITS | Encounter Summary ---
Author Organization [employer] ([place], [place], [place], [place], [place]) Address [address] [place] [address] Care Team Providers Care Supervisor Inspection Department Name Role Phone Mumtaz Larson MD Primary Care Provider + [phone] Encounter Details Date Type Department Care Team (Late st Contact Info) Description 10/02/2020 Transcribed Document [facility] [place] Family Medicine [address] [place] [address] ProviderGabriel MD [address] [place] [address] Social History Tobacco Use Types Packs/Day Years [...] - Historical ProviderMD - 10/02/2020 5:08 PM CLINICAL PHARMACY COORDINATOR Evaluation, Occupational Therapy Entered On: 10/03/2020 10:24 [...] and within reach RN/PCT Informed Comment : Mmutaz ACOSTAal this AM Treatment End Time : [...] Transfer Device : Belt, gait TOSHIA OSBORN, [facility]/10/03/2020 14:08 EST Functional Mobility Mobility Grid Bed Roll Left : Supervision/set-up Bed Roll Right : Supervision/set-up Bed Scooting : Supervision/set-up Supine to Sit : Supervision/set-up Sit to Stand : Supervision/set-up Stand to Sit : Supervision/set-up TOSHIA OSBORN, [facility]/10/03/2020 14:08 EST Neurological/Sensory Overall Sensory Response : Impaired Overall Sensory Response Comment : BLEs pain from back TOSHIA OSBORN, [facility]10/03/2020 14:08 EST Cognition Assessment, OT Orientation : Oriented x 4 Cognition Assessment, OT : Intact TOSHIA OSBORN, [facility]10/03/2020 14:08 EST Visual/Perceptual/Vestibular, OT Vision Assessment, OT : Intact TOSHIA OSBORN, [facility]10/03/2020 14:08 EST Indication Assessment, OT Occupational Therapy Indicated : Yes Problem List, OT : Impaired, bed mobility, Impaired, activities daily living, Impaired, endurance tolerance, Impaired functional mobility Potential Barriers, OT : None evident Rehabilitation Potential, OT : Good TOSHIA OSBORN, [facility]10/03/2020 14:08 EST Plan of Care, OT OT Tx Plan/Goals Established w Patient : Yes OT Frequency Rehab : Five days per week OT Duration Rehab : Fourteen days OT Treatments Planned : Activities of daily living, Therapeutic activities TOSHIA OSBORN, [facility]10/03/2020 14:08 EST Treatment Note Subjective Comment [...] TOSHIA OSBORN, OTR/L - 10/03/2020 14:08 EST [place] OT Charges OT Eval Low Complexity : 1 TOSHIA OSBORN OTR/L - 10/03/2020 14:08 EST Electronically signed by [facility], [facility] Conversion Design Specialist Cerner at 02/01/2023 7:08 PM CDT documented in this encounter Plan of Treatment Not on file documented as of this encounter Visit Diagnoses Not on filedocumented in this encounter Care Teams Supervisor Inspection Department Relationship Specialty Start Date End Date Mumtaz Larson MD [address] [place] [facility] [address] [place] [address] PCP - General Family Medicine 08/26/22 documented as of this encounter
--- OUTSIDE RECORDS SUMMARY | 2025-09-18 10:50 | XMS_ITS | Encounter Summary ---
Author Organization [employer] ([place], [place], [place], [place], [place]) Address [address] [place] [address] Care Team Providers Care Tax Representative Name Role Phone Mumtaz Larson MD Primary Care Provider + [phone] Encounter Details Date Type Department Care Team (Late st Contact Info) Description 10/03/2020 Transcribed Document [facility] [place] [facility] [place] [address] ProviderGabriel MD [address] [place] [address] Social History Tobacco Use Types Packs/Day Years [...] - Gabriel ProviderMD - 10/03/2020 5:17 PM PLANT CUSTODIAN Nursing Discharge Summary Entered On: 10/03/2020 17:18 EST Performed On: 10/03/2020 17:17 EST by Jolie Rizzo Lpn Discharge Documentation Discharge Date/Time : 10/03/2020 14:43 EST Patient Disposition, General : Discharge Discharge To : Home with ambulatory/outpatient follow-up IV Discontinued : Yes Medications Given to Patient : Yes Jolie Rizzo Lpn - 10/03/2020 17:17 EST Electronically signed by [facility] Conversion Restaurant Area Director Cerner at 02/01/2023 6:48 PM CDT documented in this encounter Plan of Treatment Not on file documented as of this encounter Visit Diagnoses Not on filedocumented in this encounter Care Teams Tax Representative Relationship Specialty Start Date End Date Mumtaz Larson MD [address] [place] [facility] [address] [place] [address] PCP - General Family Medicine 08/26/22 documented as of this encounter
--- OUTSIDE RECORDS SUMMARY | 2025-09-18 10:50 | XMS_ITS | Encounter Summary ---
Author Organization [employer] ([place], [place], [place], [place], [place]) Address [address] [place] [address] Care Team Providers Care Wheel Filler Name Role Phone Mumtaz Larson MD Primary Care Provider [phone] Encounter Details Date Type Department Care Team (Late st Contact Info) Description 10/02/2020 Transcribed Document [facility] Neurology - [address] [phone] Jass Ordonez MD [address] [place] [address] Social History Tobacco Use Types Packs/Day Years [...] PROCEDURE: An L4-5 transforaminal lumbar interbody fusion. SERVICES EXECUTIVE: Rasta Helms PA-C. ANESTHESIA TYPE: GEA. DESCRIPTION [...] scans and spinal stereotactic navigation using the [employer] system, pedicle screws were placed at L4 [...] LOSS: 50 mL. DRAINS: None. COMPLICATIONS: None. /[id number] MD ASCENCION Forrester/BRANDON / ASCENCION / MODL /[id number] CC: Dr. Mumtaz Larson documented in this encounter Plan of Treatment Not on file documented as of this encounter Visit Diagnoses Not on filedocumented in this encounter Care Teams Wheel Filler Relationship Specialty Start Date End Date Mumtaz Larson MD [address] [place] [address] PCP - General Family Medicine 08/26/22 documented as of this encounter
--- OUTSIDE RECORDS SUMMARY | 2025-09-18 10:50 | XMS_ITS | Encounter Summary ---
Author Organization [employer] ([place], [place], [place], [place], [place]) Address [address] [facility] [place] [address] Care Team Providers Care Quality Improvement Manager Name Role Phone Mumtaz Larson MD Primary Care Provider + [phone] Encounter Details Date Type Department Care Team (Late st Contact Info) Description 10/02/2020 Transcribed Document [address] [address] Angeline Amos MD [facility] [address] [address] Social History Tobacco Use Types [...] is a 64 yo male admitted to [facility] per Dr. Ordonez for an [...] = 1 Cap, Oral, Daily Flonase 1 [place], Nostrils Both, Daily levothyroxine 50 mcg (0.05 [...] on filedocumented in this encounter Care Teams Quality Improvement Manager Relationship Specialty Start Date End Date Mumtaz Larson MD [address] [place] [facility] [address] [place] [address] PCP - General Family Medicine 08/26/22 documented as of this encounter
--- OUTSIDE RECORDS SUMMARY | 2025-09-18 10:50 | XMS_ITS | Clinical Summary ---
Author Organization [facility] Address [address] [id number] Care Team Providers Care Dust Control Engineer Name Role Phone Mumtaz Larson MD Primary Care Provider + [phone] Allergies No known active allergies Medications tamsulosin [...] 2 - PCV20 or PCV21) 08/03/2020 08/03/2019 [id number] Vaccine (3 - season) 2025 02/04/2021, 12/27/2020 [...] patient's age to complete this topic Insurance 1992 [facility] [address] [place] [address] MEDICARE [facility] Care Teams Dust Control Engineer Relationship Specialty Start Date End Date Mumtaz Larson MD [address] [place] [address] PCP - General 02/28/21
--- OUTSIDE RECORDS SUMMARY | 2025-09-18 10:50 | XMS_ITS | Encounter Summary ---
Author Organization [employer] ([place], [place], [place], [place], [place]) Address [address] [place] [address] Care Team Providers Care Directory Assistance Operator Name Role Phone Mumtaz Larson MD Primary Care Provider + [phone] Encounter Details Date Type Department Care Team (Late st Contact Info) Description 09/27/2020 Transcribed Document [facility] [place] [address] [place] [address] ProviderGabriel MD [address] [place] [address] Social History Tobacco Use Types Packs/Day Years [...] - Gabriel ProviderMD - 09/27/2020 10:27 AM [employer] FEEDER PAT Adult Entered On: 09/27/2020 10:32 EST [...] Source : Measured Height Entry Format : [place] Height, Feet : 6 ft(Converted to: 183 cm, 72 Inch) Height, Inches : 2 Inch(Converted to: 0 ft 2 Inch, 5.08 cm) Clinical Height : 187.96 cm Weight Source : Standing scale Weight Entry Format : [place] Clinical Dosing Weight : 129.86 kg Weight, Pounds : 285.7 lb Body Surface Area (BSA) : 2.53 m2 Body Mass Index : 36.8 kg/m2 (HI) [place] Body Weight : 81 kg Val Rdz [...] Any Spiritual/Cultural Needs or Requests : No Voodoo Preference : Uatsdin Miguel Angel Calloway Rn - 09/27/2020 10:27 EST [place] Suicide Severity Rating Scale (C-SSRS) CSSRS Past [...] Ambulatory Legal Guardian : Spouse Support Person/Patient Production Worker : Yes Support Person/Pt Rep Name : Clare King - Support Person/Pt Rep Contact Information : [phone] Want Family/Rep/Phys Notified of Admit : No Miguel Angel Calloway Rn - 09/27/2020 10:27 EST Emergency Contact #1 : `Val Luevano Rn - 09/30/2020 11:32 EST Emergency Contact #1 Phone Number : `[phone] Emergency Contact #1 Relationship : ` Emergency Contact #2 : none` Emergency Contact #2 Phone Number : none` Emergency Contact #2 Relationship : none` Val Rdz, Rn - 09/30/2020 11:26 EST Information Obtained From : Patient Primary Language : Arabic Communication Barrier : None Civil Engineering Professor Needed : No Miguel Angel Calloway Rn [...] 09/27/2020 10:27 EST Electronically signed by [facility] Conversion Audit Intern Cerner at 02/01/2023 6:47 PM CDT documented in this encounter Plan of Treatment Not on file documented as of this encounter Visit Diagnoses Not on filedocumented in this encounter Care Teams Directory Assistance Operator Relationship Specialty Start Date End Date Mumtaz Larson MD [address] [facility] [address] [place] [address] PCP - General Family Medicine 08/26/22 documented as of this encounter
--- OUTSIDE RECORDS SUMMARY | 2025-09-18 10:50 | XMS_ITS | Encounter Summary ---
Author Organization [employer] ([place], [place], [place], [place], [place]) Address [address] [place] [address] Care Team Providers Care Balance Engineer Name Role Phone Mumtaz Larson MD Primary Care Provider + [phone] Encounter Details Date Type Department Care Team (Late st Contact Info) Description 10/03/2020 Transcribed Document [address] [address] Angeline Amos MD [facility] [address] [address] Social History Tobacco Use Types [...] yo male admitted to [facility] per Dr. Ordonez for an L4-5 TLIF. [...] mg/dL 10/03/2020 04:19 Glucose Level 146 mg/dL [place] 10/03/2020 04:19 Calcium Level 8.5 mg/dL 10/03/2020 04:19 Creatinine Level 1.20 mg/dL 10/03/2020 04:19 Cardiac Markers (Current Encounter/Past 24 Hours) No Cardiac Marker Results Found (Past 24 Hours) CBC Results (Current Encounter/Past 24 Hours) WBC 10.2 K/uL [place] 10/03/2020 03:51 Hct 41.8 % 10/03/2020 03:51 [...] 10/03/2020 04:19 Radiology Results (Last 48 hours) [id number] -- 10/02/2020 06:[address] in OR (10/02/2020 17:11) Result: CT SPINE LUMBAR IN THE ORINDICATION: Intraoperative exam. Back pain.TECHNIQUE: Thin section axial images were obtained through the lumbarspine with the patient in prone position using the [employer] CT system. Thiswas obtained in the operating [...] on filedocumented in this encounter Care Teams Balance Engineer Relationship Specialty Start Date End Date Mumtaz Larson MD [address] [place] [facility] [address] [place] [address] PCP - General Family Medicine 08/26/22 documented as of this encounter
--- OUTSIDE RECORDS SUMMARY | 2025-09-18 10:50 | XMS_ITS | Encounter Summary ---
Author Organization [employer] ([place], [place], [place], [place], [place]) Address [address] [place] [address] Care Team Providers Care Curriculum Specialist Name Role Phone Mumtaz Larson MD Primary Care Provider + [phone] Encounter Details Date Type Department Care Team (Late st Contact Info) Description 10/03/2020 Transcribed Document [facility] [place] Family Medicine [address] [place] [address] ProviderGabriel MD [address] [place] [address] Social History Tobacco Use Types Packs/Day Years [...] Gabriel Holliday MD - 10/03/2020 10:53 AM COW BUYER Patient Education Materials Follows: FAQ - Patient [...] through the local health department and the [place] Department for Public Health. Those organizations are [...] and need to call 911, notify the dry pan operator that you have, or think you [...] clean your hands with an alcohol-based hand slicer machine operator that contains at least 60% alcohol. Clean your hands often. ??? Wash hands: Wash your hands often with soap and water for at least 20 seconds when visibly dirty. This is especially important after blowing your nose, coughing or sneezing, and going to the bathroom, and before eating or preparing food. ??? Hand slicer machine operator: Use an alcohol-based hand slicer machine operator with at least 60% alcohol, [...] and water or put them in the shift supervisor. Clean all high-touch surfaces every day. Clean [...] or body fluids on them. ??? Household pile driving technician and disinfectants: Clean the area or item [...] list of disinfectants can be found here: https://www.epa.gov/pesticide-registration/yvce-n-uqtcobnbdolwe-qwu-jenafzj-tm rs-cov-2 Orthopedics Spinal Fusion, Adult, Care After [...] these instructions at home: Medicines ??? Take qmqj-fro-mkyvijv and prescription medicines only as told by [...] and water are not available, use hand slicer machine operator. ? Change your dressing as [...] urine clear or pale yellow. ? Take teuc-yba-tcgjcoa or prescription medicines. ? Eat foods that [...] 04/23/2006 Document Revised: 06/24/2019 Document Reviewed: 09/22/2017 [employer] Patient Education ? 2020 [employer]. documented in this encounter Plan of Treatment Not on file documented as of this encounter Visit Diagnoses Not on filedocumented in this encounter Care Teams Curriculum Specialist Relationship Specialty Start Date End Date Mumtaz Larson MD [address] [facility] [address] [place] [address] PCP - General Family Medicine 08/26/22 documented as of this encounter
--- OUTSIDE RECORDS SUMMARY | 2025-09-18 10:50 | XMS_ITS | Encounter Summary ---
Author Organization [employer] ([place], [place], [place], [place], [place]) Address [address] [place] [address] Care Team Providers Care Cultured Marble Products Maker Name Role Phone Mary Larson MD Primary Care Provider + [phone] Encounter Details Date Type Department Care Team (Late st Contact Info) Description 10/03/2020 Transcribed Document [facility] [place] [facility] [place] [address] ProviderGabriel MD [address] [place], [place] [address] Social History Tobacco Use Types Packs/Day Years [...] - Gabriel ProviderMD - 10/03/2020 2:00 PM ARTIST CONSULTANT [facility] [place] [address] TIEN GARCIA :1955 Visit Time:10/02/2020 Your Visit Summary Your Care Team Admitting Physician - RUSLAN FRAZIER MD-SANDEEP Attending Physician - FREDDIE, RUSLAN CRAIG MD-SANDEEP Primary Care Physician - [...] AM EST Comments Please go to the [facility] for x-rays at 10:45 before going to your appointment at 11:30. Where: [address] [place] [address]- Business (1) Follow Up with RUSLAN FRAZIER When 10/21/2020 03:30 PM EST Comments Appointment has been made for suture/staple removal Where: [address] [place] [address] [address] [employer] (1) Medications What How Much When Instructions [...] Day in am fluticasone nasal (Flonase) 1 Florence(s) Nostrils Both Every Day in am melatonin [...] follow up with their primary care provider. [employer] may reach out to them to complete contact tracing. Will my status as COVID-19 positive be reported? Because COVID-19 is a public health threat, all positive cases are reported through the local health department and the [place] Department for Public Health. Those organizations are [...] and need to call 911, notify the briquette machine operator that you have, or think [...] clean your hands with an alcohol-based hand vocational teacher that contains at least 60% alcohol. Clean your hands often. ??? Wash hands: Wash your hands often with soap and water for at least 20 seconds when visibly dirty. This is especially important after blowing your nose, coughing or sneezing, and going to the bathroom, and before eating or preparing food. ??? Hand vocational teacher: Use an alcohol-based hand vocational teacher with at least 60% alcohol, covering all [...] and water or put them in the industrial engineering analyst. Clean all high-touch surfaces every day. Clean [...] or body fluids on them. ??? Household oven tender bagels and disinfectants: Clean the area or item [...] list of disinfectants can be found here: https://www.epa.gov/pesticide-registration/iyfw-l-qagwkjnstfejr-iun-ewjhxjs-da rs-cov-2 Spinal Fusion, Adult, Care After This [...] these instructions at home: Medicines ??? Take caxb-qzm-ecqmsqd and prescription medicines only as told by [...] and water are not available, use hand vocational teacher. ? Change your dressing as told by [...] urine clear or pale yellow. ? Take sfee-lua-atcflht or prescription medicines. ? Eat foods that [...] 04/23/2006 Document Revised: 06/24/2019 Document Reviewed: 09/22/2017 [employer] Patient Education ?? 2020 Elsevier Inc. cyclobenzaprine [...] may report side effects to FDA at 4-166-ZIP-0173. What other drugs will affect cyclobenzaprine? Using [...] drugs may affect cyclobenzaprine, including prescription and wdpk-nct-gkkrzdg medicines, vitamins, and herbal products. Not all [...] to ensure that the information provided by [employer]. ('Multum') is accurate, up-to-date, and complete, but no guarantee is made to that effect. Drug information contained herein may be time sensitive. [employer] information has been compiled for use by healthcare practitioners and consumers in the [place] and therefore [employer] does not warrant that uses outside of the [place] are appropriate, unless specifically indicated otherwise. [employer] drug information does not endorse drugs, diagnose patients or recommend therapy. [employer] drug information is an informational resource designed [...] effective or appropriate for any given patient. [facility] does not assume any responsibility for any aspect of healthcare administered with the aid of information [facility] provides. The information contained herein is not intended to cover all possible uses, directions, precautions, warnings, drug interactions, allergic reactions, or adverse effects. If you have questions about the drugs you are taking, check with your doctor, nurse or pharmacist. Copyright 0525-3495 [facility]. Version: 5.01. Revision Date: 07/13/2018. acetaminophen and [...] may report side effects to FDA at 0-900-VIE-4500. What other drugs will affect acetaminophen and [...] affect acetaminophen and oxycodone, including prescription and vlbo-uoy-qqrcatn medicines, vitamins, and herbal products. Not all [...] to ensure that the information provided by [employer]. ('Multum') is accurate, up-to-date, and complete, but no guarantee is made to that effect. Drug information contained herein may be time sensitive. Multum information has been compiled for use by healthcare practitioners and consumers in the [place] and therefore [employer] does not warrant that uses outside of the [place] are appropriate, unless specifically indicated otherwise. [employer] drug information does not endorse drugs, diagnose patients or recommend therapy. [employer] drug information is an informational resource designed [...] effective or appropriate for any given patient. [facility] does not assume any responsibility for any aspect of healthcare administered with the aid of information [facility] provides. The information contained herein is not intended to cover all possible uses, directions, precautions, warnings, drug interactions, allergic reactions, or adverse effects. If you have questions about the drugs you are taking, check with your doctor, nurse or pharmacist. Copyright 1471-2144 [facility] Person[employer]. Version: 20.. Revision Date: 11/08/2019. Emergency Awareness [...] Assistance with quitting is available by contacting 8-875-OYDE-NOW. This is a free resource providing counseling, [...] range between ( 0.0 and 7.0 ) [place] #: 0.50 K/uL -- Normal range between ( 0.16 and 1.00 ) [place] #: 0.00 x10(3)/uL -- Normal range between ( 0.00 and 0.80 ) [place] %: 4.9 % -- Normal range between [...] ) Urine Bilirubin Dipstick: Negative Urine Specific [place]: 1.022 -- Normal range between ( 1.005 [...] was given the opportunity to ask questions. Patient/Investment Trader Name: Patient/Investment Trader Signature: Relationship to Patient: Clinician/Hospital Investment Trader Signature: Date: Electronically signed by Lizabeth Polanco Conversion Health And Safety Specialist Brant at 02/01/2023 6:47 PM CDT documented in this encounter Plan of Treatment Not on file documented as of this encounter Visit Diagnoses Not on filedocumented in this encounter Care Teams Cultured Marble Products Maker Relationship Specialty Start Date End Date Mary Larson MD [address] [place] [address] [place] [address] PCP - General Family Medicine 08/26/22 documented as of this encounter
--- OUTSIDE RECORDS SUMMARY | 2025-09-18 10:50 | XMS_ITS | Encounter Summary ---
Author Organization [employer]@ ([place], [place], [place], [place], [place]) Address [address] [place] [address] Care Team Providers Care Mechanical Engineering Lecturer Name Role Phone Mumtaz Larson MD Primary Care Provider + [phone] Encounter Details Date Type Department Care Team (Late st Contact Info) Description 10/03/2020 Transcribed Document [facility] [place] [facility] [place] [address] ProviderGabriel MD [address] [place] [address] Social History Tobacco Use Types Packs/Day Years [...] - Gabriel ProviderMD - 10/03/2020 3:31 PM FEEDER DRIVER Discharge Summary, PT Entered On: 10/03/2020 15:32 [...] DEL MCKAY, PT - 10/03/2020 15:31 EST Filter Press Tender Head Goals Ambulation LTG Grid Goal #1 Device : Walker, front wheel Distance : 400' Assist : Independent, modified Date to Meet : 10/17/2020 EST Goal Status : Goal met DEL MCKAY, PT - 10/03/2020 15:31 EST Electronically signed by [facility] Conversion Reel System Operator Cerner at 02/01/2023 6:58 PM CDT documented in this encounter Plan of Treatment Not on file documented as of this encounter Visit Diagnoses Not on filedocumented in this encounter Care Teams Mechanical Engineering Lecturer Relationship Specialty Start Date End Date Mumtaz Larson MD [address] [facility] [address] [place] [address] PCP - General Family Medicine 08/26/22 documented as of this encounter
--- OUTSIDE RECORDS SUMMARY | 2025-09-18 10:50 | XMS_ITS | Encounter Summary ---
Author Organization [employer] ([place], [place], [place], [place], [place]) Address [address] [place] [address] Care Team Providers Care Grass Farm Laborer Name Role Phone Mumtaz Larson MD Primary Care Provider [phone] Encounter Details Date Type Department Care Team (Late st Contact Info) Description 10/02/2020 Transcribed Document [facility] [place] [facility] [place] [address] ProviderGabriel MD [address] [place] [address] Social History Tobacco Use Types Packs/Day Years [...] - Gabriel ProviderMD - 10/02/2020 3:30 PM FISHERIES INSPECTOR [facility] Main OR IntraOp Summary Primary Physician: RUSLAN FRAZIER MD-SANDEEP Finalized Date/Time: 10/04/20 10:26:00 Pt. Name: TIEN DEJESUS Wilmer Delcid/Sex: 1955 Male Med Rec #: [id number] Physician: RUSLAN FRAZIER MD-SNAnna Financial #: [id number] Pt. Type: I Room/Bed: 5/1 Admit/Disch: 10/02/20 06:11:00 - 10/03/20 14:43:00 Institution: [facility] IntraOp Case Attendance Entry 1 Entry 2 Entry 3 Case Attendee FREDDIE, RIAN CLAIRE SANDRA D, RN MELVA MARTIN, NATASHAUB -SNAnna TECH Role Performed Surgeon/Proceduralist, Sign Hanger, Second Scrub, First First Time In 10/02/20 [...] AGEE, RN Bernadine Castro, RN CAITLIN BEY, EYELET MAKER Role Performed Scrub, Second Sign Hanger, Second EYELET MAKER/Nurse Sink Cutter Time In 10/02/20 14:49:00 10/02/20 15:19:00 10/02/20 [...] OTHER, ATTENDEE #1 ARIADNA SCOTT Role Performed Sign Hanger, First Student Physician review assistant Time In 10/02/20 16:52:00 10/02/20 14:49:00 10/02/20 14:49:00 Time Out 10/02/20 17:14:00 10/02/20 17:14:00 10/02/20 17:14:00 Procedure Lumbar Fusion Posterior Lumbar Fusion Posterior Lumbar Fusion Posterior 3 Level 3 Level 3 Level Other Attendee relief patience munguia - EYELET MAKER student Superficial Wound Closed By: Last Modified By: Bernadine Castro Perkins, Cassandra L, Bernadine Castro, RN 10/02/20 17:15:30 RN 10/02/20 17:15:30 RN 10/02/20 17:15:30 [facility] IntraOp Case Attendance Audit 10/02/20 17:16:06 Mat Repairer: [id number] Modifier: [id number] <+> Role Performed 5 <*> Procedure Lumbar Fusion Posterior 3 Level 10/02/20 17:15:30 Mat Repairer: [id number] Modifier: [id number] <+> Time Out 1 <*> Procedure [...] Lumbar Fusion Posterior 3 Level 10/02/20 17:10:08 Mat Repairer: [id number] Modifier: [id number] <+> 9 Case Attendee <+> 9 Role Performed <+> 9 Time In <+> 9 Procedure 10/02/20 17:04:30 Mat Repairer: [id number] Modifier: [id number] <+> 8 Case Attendee <+> 8 Role Performed <+> 8 Time In <+> 8 Procedure <+> 8 Other Attendee 10/02/20 17:03:20 Mat Repairer: [id number] Modifier: [id number] <+> 7 Case Attendee <+> 7 Role Performed <+> 7 Time In <+> 7 Procedure <+> 7 Other Attendee 10/02/20 16:46:56 Mat Repairer: [id number] Modifier: [id number] 1 <*> Procedure Lumbar Fusion Posterior 3 Level 2 <*> Procedure Lumbar Fusion Posterior 3 Level 3 <*> Procedure Lumbar Fusion Posterior 3 Level 4 <*> Procedure Lumbar Fusion Posterior 3 Level 5 <*> Procedure Lumbar Fusion Posterior 3 Level 6 <+> Time In 6 <*> Procedure Lumbar Fusion Posterior 3 Level 10/02/20 15:37:23 Mat Repairer: [id number] Modifier: [id number] <+> 6 Case Attendee <+> 6 Role Performed <+> 6 Procedure 10/02/20 15:19:36 Mat Repairer: [email or web address] Modifier: [id number] <*> Procedure Lumbar Fusion Posterior 3 Level 2 <*> Procedure Lumbar Fusion Posterior 3 Level 3 <+> Time In 3 <*> Procedure Lumbar Fusion Posterior 3 Level 4 <+> Time In 4 <*> Procedure Lumbar Fusion Posterior 3 Level <+> 5 Case Attendee <+> 5 Time In <+> 5 Procedure 10/02/20 15:12:55 Mat Repairer: [email or web address] Modifier: [email or web address] 1 <*> Procedure Lumbar Fusion Posterior 3 Level 2 <+> Time In 2 <*> Procedure Lumbar Fusion Posterior 3 Level <+> 3 Case Attendee <+> 3 Role Performed <+> 3 Procedure <+> 4 Case Attendee <+> 4 Role Performed <+> 4 Time Out <+> 4 Procedure 10/02/20 15:04:57 Mat Repairer: [email or web address] Modifier: [email or web address] 1 <*> Procedure Lumbar Fusion Posterior 3 Level <+> 2 Case Attendee <+> 2 Role Performed <+> 2 Time Out <+> 2 Procedure [facility] IntraOp Case Times Entry 1 Patient In Room Time 10/02/20 14:49:00 Out Room Time 10/02/20 17:14:00 Anesthesia Start Time 10/02/20 14:49:00 Stop Time 10/02/20 17:14:00 Surgery / Procedure Times Start Time 10/02/20 15:30:00 Stop Time 10/02/20 17:10:00 Last Modified By: Bernadine Castro RN 10/02/20 17:15:28 [facility] IntraOp Case Times Audit 10/02/20 17:15:28 Mat Repairer: [id number] Modifier: [id number] <+> 1 Out Room Time <+> 1 Stop Time 10/02/20 17:13:13 Mat Repairer: [id number] Modifier: [id number] <+> 1 Stop Time 10/02/20 15:30:10 Mat Repairer: [email or web address] Modifier: [id number] <+> 1 Start Time [facility] IntraOp Cautery Entry 1 ESU Identification Cautery Type Monopolar ESU ID Number [id number] ID Type Hospital Number Cautery Settings Cut Setting 30 Coag Setting 30 ESU Grounding Pad Ground Pad Type Adult Grounding Pad Site Left thigh Grounding Pad SACHA MODI RN Applied By Grounding Pad Site Warm, dry and intact Skin Condition Before Cautery Grounding Pad Site Unchanged Skin Condition After Cautery Last Modified By: Bernadine Castro RN 10/02/20 15:17:52 [facility] IntraOp Communication Entry 1 Communication To Family/Significant other Communication By Bernadine Castro RN Last Modified By: Bernadine Castro RN 10/02/20 16:49:41 [facility] IntraOp Counts Verification Entry 1 Procedure Lumbar [...] Modified By: Bernadine Castro RN 10/02/20 16:54:07 [facility] IntraOp Departure from OR Entry 1 Integumentary Assessment Integumentary WDL Assessment WDL Transfer/Handoff Transfer to PACU Phase I Handoff Method Bedside/Face to face, Online nursing summary Post-op Transport Stretcher/Gurney Via Patient Transport CAITLIN BEY, Accompanied by EYELET MAKER, OTHER, ATTENDEE #1 Last Modified By: Bernadine Castro RN 10/02/20 17:04:35 [facility] IntraOp Departure from OR Audit 10/02/20 17:04:35 Mat Repairer: [id number] Modifier: [id number] 1 <*> Patient Transport Accompanied by CAITLIN BEY CRNA [facility] IntraOp Dressing and Packing Entry 1 Type Dressing Last Modified By: Bernadine Castro RN 10/02/20 15:32:06 [facility] IntraOp Fire Risk Assessment Entry 1 Fire [...] Modified By: Bernadine Castro RN 10/02/20 15:18:15 [facility] IntraOp General Case Compensation Intern 1 Case Information OR OR 10 [facility] Case Level 1 Room Verified Yes Wound Class I - Clean Specialty SN Neurosurgery Anesthesia Type General ASA Class 3 Diagnosis Preop Diagnosis L4-5 spondylolisthesis Postop Diagnosis see md post op notes Last Modified By: Bernadine Castro RN 10/02/20 16:55:06 [facility] IntraOp General Case Data Audit 10/02/20 16:55:06 Mat Repairer: [id number] Modifier: [id number] <+> 1 Preop Diagnosis [facility] IntraOp Implant Log Entry 1 Entry 2 Entry 3 Type Tissue Implant Implant (Synthetic) Implant (Synthetic) (Biologic) Implant Log Implant Type Hardware Hardware Tissue Implant Type Other Implant .BONE VIVIGEN FORMABLE [id number] [facility] Identification -[id number] Description Implant Quantity 1 1 1 Implant Site op site Implant Identification Model Number Implant Identification Serial Number Implant Identification Lot Number Implant J&J:Depuy:Depuy Spine Identification Pmo Project Manager Name: Implant [id number] Identification Catalog Number Implant Size Implant Has an Yes Expiration Date Implant Expiration 09/13/21 Date Wasted Radioactive Material Time Implanted Tissue Implant Continue for Tissue Implant Documentation Tissue Identification Number Graft Prep Per Pmo Project Manager Instructions: Tissue Preparation Method: Reconstitution Solution: Reconstitution Solution Lot Number Reconstitution Solution Expiration Date: Thawing Solution Thawing Solution Lot Number Thawing Solution Expiration Date Preparation Materials, Other Preparation Materials, Other Lot Number Preparation Materials, Other Expiration Date Tissue Prepared/Processed By Pmo Project Manager Paperwork Completed Implant Type Comment Last Modified By: Bernadine Castro Perkins, Cassandra L, Bernadine Castro, RN 10/02/20 15:38:31 RN 10/02/20 16:49:28 RN 10/02/20 16:49:28 Entry 4 Entry 5 Entry 6 Type Implant (Synthetic) Implant (Synthetic) Implant (Synthetic) Implant Log Implant Type Hardware Hardware Hardware Tissue Implant Type Implant [id number] Identification Description Implant Quantity 4 2 4 Implant Site Implant Identification Model Number Implant Identification Serial Number Implant Identification Lot Number Implant Identification Pmo Project Manager Name: Implant Identification Catalog Number Implant Size Implant Has an Expiration Date Implant Expiration Date Wasted Radioactive Material Time Implanted Tissue Implant Continue for Tissue Implant Documentation Tissue Identification Number Graft Prep Per Pmo Project Manager Instructions: Tissue Preparation Method: Reconstitution Solution: Reconstitution Solution Lot Number Reconstitution Solution Expiration Date: Thawing Solution Thawing Solution Lot Number Thawing Solution Expiration Date Preparation Materials, Other Preparation Materials, Other Lot Number Preparation Materials, Other Expiration Date Tissue Prepared/Processed By Pmo Project Manager Paperwork Completed Implant Type Comment Last Modified By: Bernadine Castro Perkins, Cassandra L, Bernadine Castro, RN 10/02/20 16:49:28 RN 10/02/20 16:49:28 RN 10/02/20 16:49:28 Entry 7 Type Implant Log Implant Type Hardware Tissue Implant Type Implant [id number] Identification Description Implant Quantity 1 Implant Site Implant Identification Model Number Implant Identification Serial Number Implant Identification Lot Number Implant Identification Pmo Project Manager Name: Implant Identification Catalog Number Implant Size Implant Has an Expiration Date Implant Expiration Date Wasted Radioactive Material Time Implanted Tissue Implant Continue for Tissue Implant Documentation Tissue Identification Number Graft Prep Per Pmo Project Manager Instructions: Tissue Preparation Method: Reconstitution Solution: Reconstitution Solution Lot Number Reconstitution Solution Expiration Date: Thawing Solution Thawing Solution Lot Number Thawing Solution Expiration Date Preparation Materials, Other Preparation Materials, Other Lot Number Preparation Materials, Other Expiration Date Tissue Prepared/Processed By Pmo Project Manager Paperwork Completed Implant Type Comment Last Modified By: Bernadine Castro RN 10/02/20 16:49:28 [facility] IntraOp Implant Log Audit 10/02/20 16:49:28 Mat Repairer: [id number] Modifier: [id number] <+> 2 Implant Identification Description <+> 2 Implant Quantity <+> 2 Implant Type <+> 2 Type <+> 3 Implant Identification Description <+> 3 Implant Identification Pmo Project Manager Name: <+> 3 Implant Quantity <+> 3 [...] 7 Implant Quantity <+> 7 Implant Type [facility] IntraOp Intraoperative Assessment Entry 1 Handoff Method [...] Modified By: Bernadine Castro RN 10/02/20 15:38:46 [facility] IntraOp Intraoperative Equipment Entry 1 Type Equipment Equipment Equipment Ophelia Suction System Setting 30781 Intraop Monitoring Electrocardiogram Five lead placement (ECG) Electrode Placement Blood Pressure Non-Invasive BP Device Source Blood Pressure Arm, right upper Location Pulse Oximeter Hand, left Probe Site Antiembolic Devices Antiembolic Devices Sequential compression device, knee high Antiembolic Device Bilateral Location Antiembolic Device [id number] ID Number Scopes Photo/Video Documentation Last Modified By: Bernadine Castro RN 10/02/20 15:39:13 [facility] IntraOp Medication Admin Entry 1 Medication/Irrigant Marcaine 0.25% 30ml vial - [id number] Dose Procedure Irrigation Last Modified By: Bernadine Castro RN 10/02/20 16:53:44 [facility] IntraOp Patient Positioning Entry 1 Procedure Lumbar [...] Modified By: Bernadine Castro RN 10/02/20 15:33:07 [facility] IntraOp Sign In Entry 1 Patient, Site, [...] Modified By: Bernadine Castro RN 10/02/20 16:46:47 [facility] IntraOp Sign Out Entry 1 RN Confirmation [...] Modified By: Bernadine Castro RN 10/02/20 17:15:44 [facility] IntraOp Sign Out Audit 10/02/20 17:15:44 Mat Repairer: [id number] Modifier: [id number] <*> RN Sign Out Signature Bernadine Castro RN 1 <+> RN Sign Out Signature Date/Time [facility] IntraOp Skin Prep Entry 1 Procedure Lumbar Fusion Posterior 3 Level Prescribed Yes Pre-Surgical Prep Completed Prep Area op site Intraop Prep Integumentary WDL Assessment WDL Prep Agents DuraPrep Prep by Bernadine Castro RN Hair Removal Methods Clipper/Scissors Hair Removal By RUSLAN FRAZIER MD-SNU Last Modified By: Bernadine Castro RN 10/02/20 15:32:27 [facility] IntraOp Surgical Procedures Entry 1 Procedure Lumbar Fusion Posterior 3 Level Additional (L4-5 TLIF WITH AIRO) Procedure Description Primary Procedure Yes Primary Surgeon RUSLAN FRAZIER MD-SNU Start 10/02/20 15:30:00 Stop 10/02/20 17:10:00 Anesthesia Type General Specialty SN Neurosurgery Wound Class I - Clean Last Modified By: Bernadine Castro RN 10/02/20 17:15:32 [facility] IntraOp Surgical Procedures Audit 10/02/20 17:15:32 Mat Repairer: [id number] Modifier: [id number] <+> 1 Stop 10/02/20 16:50:20 Mat Repairer: [email or web address] Modifier: [id number] <+> 1 Start [facility] IntraOp Temp Regulation Devices Entry 1 Temp Regulation Temperature Warm blankets Regulation Device Temperature COMBEST, CAITLIN P, EYELET MAKER Regulation Device Applied by Last Modified By: Bernadine Castro RN 10/02/20 16:34:04 [facility] IntraOP Time Out Entry 1 Procedure to [...] 10:23 WATCHONG Correct Billing Electronically signed by [facility], [facility] Conversion Felt Hat Pouncing Operator Hand Cerner at 02/01/2023 6:56 PM CDT documented in this encounter Plan of Treatment Not on file documented as of this encounter Visit Diagnoses Not on filedocumented in this encounter Care Teams Grass Farm Laborer Relationship Specialty Start Date End Date Mumtaz Larson MD [address] [facility] [address] [place] [address] PCP - General Family Medicine 08/26/22 documented as of this encounter
--- OUTSIDE RECORDS SUMMARY | 2025-09-18 10:50 | XMS_ITS | Encounter Summary ---
Author Organization [employer] ([place], [place], [place], [place], [place]) Address [address] [place] [address] Care Team Providers Care Polysomnographic Technologist Name Role Phone Mumtaz Larson MD Primary Care Provider + [phone] Encounter Details Date Type Department Care Team (Late st Contact Info) Description 10/02/2020 Transcribed Document [facility] [place] [address] [place] [address] ProviderGabriel MD [address] [place] [address] Social History Tobacco Use Types Packs/Day Years [...] - Historical ProviderMD - 10/02/2020 5:08 PM CARETAKER GROUNDS Evaluation, Physical Therapy Entered On: 10/03/2020 9:41 [...] L4-5 Hx: DM type II, arthritis, GERD, LEVELOCK, HTN, BRETT, microscopic colitis, prostate ca. Sx: [...] LUO Student-Physical Therapist - 10/03/2020 10:54 EST Credit Risk Officer Goals Ambulation LTG Grid Goal #1 Device [...] on filedocumented in this encounter Care Teams Polysomnographic Technologist Relationship Specialty Start Date End Date Mumtaz Larson MD [address] [place] [facility] [address] [place] [address] PCP - General Family Medicine 08/26/22 documented as of this encounter
--- OUTSIDE RECORDS SUMMARY | 2025-09-18 10:50 | XMS_ITS | Encounter Summary ---
Author Organization [employer] ([place], [place], [place], [place], [place]) Address [address] [place] [address] Care Team Providers Care Abnormal Psychology Teacher Name Role Phone Mumtaz Larson MD Primary Care Provider [phone] Encounter Details Date Type Department Care Team (Late st Contact Info) Description 10/02/2020 Transcribed Document [facility] Neurology - [place] [id number] [phone] Jass Ordonez MD [address] [place] [address] [place] [address] Social History Tobacco Use Types Packs/Day Years [...] Cap, Oral, Daily, 0 Refill(s) Flonase: 1 [place], Nostrils Both, Daily, 0 Refill(s) Melatonin 5 [...] = 1 Cap, Oral, Daily Flonase 1 [place], Nostrils Both, Daily levothyroxine 50 mcg (0.05 [...] All Problems Microscopic colitis / SNOMED CT 544986884 / Confirmed Prostate cancer / SNOMED CT 0414770212 / Confirmed History of obstructive sleep apnea / IMO 48896118 / Confirmed High blood pressure / SNOMED CT 00322312 / Confirmed Hard of hearing / SNOMED CT 586305192 / Confirmed GERD - Gastro-esophageal reflux disease / SNOMED CT 7654848324 / Confirmed Diabetes mellitus type II / SNOMED CT 13241033 / Confirmed Bronchitis / SNOMED CT 21618333 / Confirmed Arthritis / SNOMED CT 6052031 / Confirmed Allergic rhinitis / SNOMED CT 904211483 / Confirmed, Active Problems (10) Allergic rhinitis [...] scope. hand surgery. umbilical hernia repair. Appendectomy ([id number]). Brachytherapy ([id number]). Comments: 09/27/2020 10:27 Miguel Angel Valdivia, Rn [...] Extraocular movements are intact, glasses. HENT: Normocephalic, QAWALANGIN, suleiman aids. Neck: Supple, Non-tender. Respiratory: Lungs [...] on filedocumented in this encounter Care Teams Abnormal Psychology Teacher Relationship Specialty Start Date End Date Mumtaz Larson MD [address] [place] [facility] [address] [place] [phone] PCP - General Family Medicine 08/26/22 documented as of this encounter
--- OUTSIDE RECORDS SUMMARY | 2025-09-18 10:50 | XMS_ITS | Encounter Summary ---
Author Organization [employer] ([place], [place], [place], [place], [place]) Address [address] [place] [address] Care Team Providers Care Spray Painter Helper Name Role Phone Mumtaz Larson MD Primary Care Provider [phone] Encounter Details Date Type Department Care Team (Late st Contact Info) Description 10/03/2020 Transcribed Document [facility] [place] [address] [place] [address] ProviderGabriel MD [address] [place] [address] Social History Tobacco Use Types Packs/Day Years [...] - Gabriel ProviderMD - 10/03/2020 10:06 AM SHOE SALESPERSON UM Authorization Entered On: 10/03/2020 10:06 EST Performed On: 10/03/2020 10:06 EST by Jenise Hoover Rn-Utilization Review Primary Insurance Authorization Authorization and Policy Numbers : Insurance 1 Health Plan: MEDICARE Policy Number: [id number] Authorization Number: Insurance 2 Health Plan: [facility] Policy Number: [id number] Authorization Number: NPR Insurance Primary Name : MEDICARE Authorized Service Begin Date-Primary : 10/02/2020 EST Historical Authorization Comments-Primary : No Authorization Comments Found Jenise Hoover Rn-Utilization Review - 10/03/2020 10:06 EST documented in this encounter Plan of Treatment Not on file documented as of this encounter Visit Diagnoses Not on filedocumented in this encounter Care Teams Spray Painter Helper Relationship Specialty Start Date End Date Mumtaz Larson MD [address] [facility] [address] [place] [phone] PCP - General Family Medicine 08/26/22 documented as of this encounter
--- OUTSIDE RECORDS SUMMARY | 2025-09-18 10:50 | XMS_ITS | Encounter Summary ---
Author Organization [employer] ([place], [place], [place], [place], [place]) Address [address] [place] [address] Care Team Providers Care Technical Solution Architect Name Role Phone Mumtaz Larson MD Primary Care Provider [phone] Encounter Details Date Type Department Care Team (Late st Contact Info) Description 10/03/2020 Transcribed Document [facility] [place] [facility] [place] [address] ProviderGabriel MD [address] [place] [address] Social History Tobacco Use Types Packs/Day Years [...] - Gabriel ProviderMD - 10/03/2020 1:09 PM BACTERIOLOGY PROFESSOR Initial Discharge Planning Entered On: 10/03/2020 13:17 EST Performed On: 10/03/2020 13:09 EST by DAVID DAI RN-Toll Test Desk Worker Initial Assessment I Previously Documented Living Environment : No qualifying data available. Living Situation : Home Patient Lives With : Adult Child/Children, Family member(s), Spouse Is the Patient a Caregiver at Home? : No Emergency Contact #1 : `Clare King Emergency Contact #1 Phone Number : `[phone] Emergency Contact #1 Relationship : ` Emergency Contact #2 : none` Emergency Contact #2 Phone Number : none` Emergency Contact #2 Relationship : none` Enter Doctors Name : MUMTAZ LARSON (REF) Kyrie Does Patient have PCP Listed? : Yes DAVID DAI RN-Toll Test Desk Worker - 10/03/2020 13:09 EST Initial Assessment II Sensory and Motor Deficits : None Current Home Treatments and Equipment : BiPAP, Walker Does the Patient have a Floor to SNF Benefit? : Yes DAVID DAI RN-Toll Test Desk Worker - 10/03/2020 13:09 EST Discharge Needs I Anticipated Discharge Date : 10/03/2020 EST Anticipated Discharge To, CM : Home with family care Current Home Treatment/Equipment : Current Home Treatment/Equipment No qualifying data available. Post Acute/Home Treatments : None Documentation Status Complete : Yes DAVID DAI RN-Toll Test Desk Worker - 10/03/2020 13:09 EST Discharge Needs II Professional Skilled Services : Professional Skilled Services No qualifying data available. Needs Assistance with Transportation : No DAVID DAI RN-Toll Test Desk Worker - 10/03/2020 13:09 EST Narrative Note Narrative Note : 64yo male pt s/p L4-5 TLIF. Met with pt at bedside to discuss DCP. Pt has DME at home. He ambulated 380ft with therapy. Pt denies needs. Pt dc'd home today. DAVID DAI RN-Toll Test Desk Worker - 10/03/2020 13:09 EST Electronically signed by Horace Polanco Conversion Retail Security Professional Cerner at 02/01/2023 6:50 PM CDT documented in this encounter Plan of Treatment Not on file documented as of this encounter Visit Diagnoses Not on filedocumented in this encounter Care Teams Technical Solution Architect Relationship Specialty Start Date End Date Mumtaz Larson MD [address] [place] [facility] [address] [place] [phone] PCP - General Family Medicine 08/26/22 documented as of this encounter
== END 2025-09-18 23:59 | disposition home or self-care (01) ==
LOC: RAD 10:47
PROVIDERS: PCP Family Medicine; Visit Provider Family Medicine
DX: J18.9 Pneumonia, unspecified organism (principal)
CPT/HCPCS: 71046